=== PATIENT | male | born 1935 | race Caucasian/White ===

== ENCOUNTER 2018-03-10 21:18 | Inpatient (IN) | payer MEDICARE, BC, SELFPAY ==
[2018-03-10 21:27] VITALS: BP 132/75; PULSE 62; RESP 20; TEMP 36.4; O2SAT 98; BMI 25.0
[2018-03-10 22:10] VITALS: BP 132/77; PULSE 70; RESP 15; O2SAT 94
--- NOTE | 2018-03-10 22:46 | DI.CT.S_ITS ---
PROCEDURE: CT ABDOMEN PELVIS W CON INDICATIONS: Nausea and vomiting, absence of flatus and stool, prior SBOs - SBO? RLQ Pain TECHNIQUE: After the administration of intravenous contrast, 5 mm thick sections acquired from the diaphragm to the symphysis. 5 mm coronal and sagittal reformats were acquired. For radiation dose reduction, the following was used: automated exposure control, adjustment of mA and/or kV according to patient size. COMPARISON: [facility], CT, ABDOMEN/PELVIS WITH CONTRAST, 01/13/2017, 4:38. FINDINGS: Image quality: Excellent. ABDOMEN: Lung bases: Bilateral dependent atelectasis/scarring. Solid organs: 1 cm or less hypodense lesions seen within the caudate lobe and posterior tip of the right lobe, too small to characterize although grossly unchanged 01/13/17.. Gallbladder surgically absent.. Biliary system is non dilated. Pancreas enhances normally. There is a presumed gas and fluid filled duodenal diverticulum image 35 series 6 Spleen is normal in size and enhancement. No adrenal nodules. Presumed bilateral renal cysts although some of these are technically too small to characterize definitively. Nonobstructive 2 mm left renal calculus. There is A. at least partially solid appearing lesion measuring 2.6 cm involving the upper pole of the left kidney, with this suspicious for renal cell carcinoma. A mildly complex cyst along the posterior cortex of the right kidney image 30 series 6 with probable peripheral calcification measuring 1.8 cm. Peritoneum and bowel: Trace pelvic fluid. No free air. There are dilated small bowel loops (in addition to dilated appearance of the stomach) with a possible transition point seen in the supraumbilical midline abdomen, coronal image 17, axial image 47-51. The distal small bowel is relatively decompressed as is the colon. The rectum contains stool and gas and is otherwise unremarkable. The appendix is normal. Incidental colonic diverticulosis. Nodes and vessels: No retroperitoneal or mesenteric adenopathy by size criteria. Aorta and inferior vena cava are normal in size. Miscellaneous: No ventral hernias. PELVIS: Genitourinary: Circumferential bladder wall thickening which is nonspecific although the bladder is partially decompressed. The prostate is enlarged. Miscellaneous: No inguinal hernias or adenopathy. Bones: No suspicious bony lesions. No vertebral body compression fractures. IMPRESSION: Findings suggestive of high-grade proximal to mid small bowel obstruction. Possible transition point as detailed above in the area of the midline supraumbilical abdomen. Solid-appearing suspicious 2.6 cm mass involving the upper pole left kidney (best visualized on coronal images) which is highly suspicious for renal cell carcinoma until proven otherwise. Recommend urology surgical consultation. Additional mildly complex cystic lesion involving the posterior right kidney Mild ascites. Nonobstructing left nephrolithiasis. Enlarged prostate. Additional chronic and incidental findings as above. Concordant with preliminary study interpretation. Dictated by: Octaviano Hinkle M.D. on 03/11/2018 at 7:36 Approved by: Octaviano Hinkle M.D. on 03/11/2018 at 7:49
[2018-03-10 23:03] LABS: Add Manual Diff / Slide Review NO; Basophils Percent Auto 0.6 % (0-2); Eosinophils Percent Auto 0.4 % (2-4); Hemoglobin 13.7 g/dL (13.5-17.5); Lymphocytes Percent Auto 23.8 % (25-40); Mean Corpuscular HGB Conc 34.3 % (30-36); Mean Corpuscular Hemoglobin 29.8 PG (26-34); Mean Corpuscular Volume 87.1 fL (80-100); Monocytes Percent Auto 8.3 % (3-14); Neutrophils Absolute Auto 4500 /uL (3000-5900); Neutrophils Percent Auto 66.9 % (50-75); Platelet Count 274 X10^3/uL (150-400); Red Blood Cell Count 4.59 X10^6/uL (4.5-5.9); Red Cell Distribution Width 15.1 % (11.6-14.8); White Blood Cell Count 6.8 X10^3/uL (4.5-11.0)
[2018-03-10] MEDS: METOCLOPRAMIDE 10 MG/2 ML INJ IV (23:05)
[2018-03-10] MEDS: SODIUM CHLORIDE 0.9% 1,000 ML 1000 ML IV (23:05)
[2018-03-10 23:11] VITALS: BP 112/73; PULSE 73; RESP 15; O2SAT 96
[2018-03-10 23:12] LABS: Alanine Aminotransferase 33 IU/L (21-72); Albumin 4.2 g/dL (3.5-5.0); Albumin Globulin Ratio 1.3 (1.0-2.8); Alkaline Phosphatase 116 U/L (38-126); Aspartate Aminotransferase 28 IU/L (17-59); Bilirubin Total 0.7 mg/dL (0.2-1.3); Calcium 9.6 mg/dL (8.4-10.2); Estimated Glomerular Filt Rate > 60.0 mL/min (>60); Globulin 3.3 g/dL (1.7-4.1); Glucose 115 mg/dL (80-110); HEMOLYSIS < 15 (0-50); Lipase 73 U/L (23-300); Potassium 4.4 mmol/L (3.4-5.1); Sodium 140 mmol/L (137-145); Total Protein 7.5 g/dL (6.3-8.2)
[2018-03-10 23:20] LABS: Lactate (Lactic Acid) 1.4 mmol/L (0.7-2.1)
[2018-03-11] VITALS (8 sets, daily range): BP systolic 114–146; BP diastolic 61–81; PULSE 65–85; RESP 18–20; TEMP 36.8–37.2; O2SAT 94–98; BMI 23.8
--- NOTE | 2018-03-11 | DI.US.S_ITS ---
PROCEDURE: US RENAL COMPLETE INDICATIONS: Left renal mass seen on CT scan TECHNIQUE: Real-time scanning was performed of the kidneys and bladder, with image documentation. COMPARISON: [facility], CT, CT ABDOMEN PELVIS W DENNISE, 03/10/2018, 23:43. FINDINGS: Kidneys: Kidneys are normal in size. The known superior pole left renal mass is not well seen milder sounds. Right kidney measures 10.7 cm long; left kidney measures 10.3 cm long. Right renal cortical thickness is 1.8 cm; left renal cortical thickness is 1.6 cm. Renal cortical echotexture is normal. No hydronephrosis. No right renal calculi are present. 6 mm superior pole left renal calculus. 7 mm diameter left interpolar renal calculus. No suspicious solid mass lesions. Multiple bilateral renal cysts are present. Largest right renal cyst measures 43 mm within the lateral interpolar kidney. 18 mm right superior pole renal cyst is present. 26 mm diameter superior pole left renal cyst is present. Bladder: Decompressed Miscellaneous: No free pelvic fluid. IMPRESSION: 1. Nonvisualization of known left superior pole renal mass. 2. No hydronephrosis bilaterally. 3. Bilateral renal cysts. 4. Nonobstructing left nephrolithiasis. Dictated by: Day Moulton M.D. on 03/11/2018 at 18:33 Approved by: Day Moulton M.D. on 03/11/2018 at 18:36
[2018-03-11] MEDS: TETRACAINE/BENZOCAINE/BUTAMBEN (CETACAINE) BOTTLE 1 SPRAY TOP (02:00)
--- NOTE | 2018-03-11 02:27 | PC.NURSE ---
Attempted to place NG tube 3x, unsuccessful. Pt refusing any further attempts at this time. Dr. Schmidt aware.
--- NOTE | 2018-03-11 03:37 | ED_ITS ---
HPI - Abdominal Pain General Chief Complaint: Abdominal Pain Stated Complaint: CONSTIPATION Time Seen by Provider: 03/10/18 22:06 History of Present Illness HPI narrative: HPI 82-year-old male with a history of recurrent small bowel obstruction presents with a day of frequent belching, decreased passage of flatus and stool, abdominal distention, and right lower quadrant pain. Denies fevers, chills, dysuria. Denies chest pain. M/S/F/SocHx notable for: gout, small bowel obstruction, cholecystectomy, HLD, HTN, SBO, anxiety, osteoarthritis; remainder reviewed with patient and in chart. ROS: Negative constitutional, eye, cardiovascular, pulmonary, GI, , MSK, skin , neurologic, psychiatric, endocrine unless noted in the HPI. Exam Gen: pleasant, uncomfortable but not in extremis. Infrequent belching observed. HEENT: NC, AT, PEERL, EOMI. Resp: Clear to auscultation bilaterally, normal work of breathing, no accessory muscle usage. Card: Regular rate and rhythm with no murmurs, rubs, or gallops, extremities warm and well perfused. GI: mildly distended, mild diffuse chart to palpation greatest in the right lower quadrant, no rebound, no guarding. : No suprapubic tenderness to palpation. MSK: No visible deformities, strength and tone without visually appreciable deficit. Skin: Normal color with no visible lesions. Neuro: AO x 3, no facial asymmetry, vision and hearing WNL. Psych: Mood and affect appropriate. Labs / Imaging: WBC 6.8, hemoglobin 13.7, lactic acid 1.4, sodium 140, potassium 4.4, creatinine 1.00, total bilirubin 0.7, AST 20, ALT 33, alkaline phosphatase 116, lipase 73. CT abdomen/pelvis: high grade proximal to mid small bowel obstruction, zone of transition thought to be in the slightly super umbilical abdomen to the right of midline. Mild mesenteric fluid and mild intrapelvic fluid. Indeterminate solid prominent enhancing 2.6 cm mass of the upper pole of the left kidney. This has to be considered very suspicious for neoplasm. Slightly complex small cyst of the posterior upper right kidney with peripheral calcification. Left nephrolithiasis, at least one nonobstructing stone. Prostatomegaly. Mildly thick -walled appearance of the urinary bladder. Mild pelvic fluid. Fat-containing right inguinal hernia, small. Cholecystectomy. Small hepatic cysts. MDM Previous chart, nursing note, labs, imaging, and vitals reviewed. A: 82-year-old male with a history of recurrent small bowel obstruction presents with a day of frequent belching, decreased passage of flatus and stool , abdominal distention, and right lower quadrant pain. DDx: small bowel instruction, partial small bowel obstruction, ileus, sigmoid volvulus, acute appendicitis Evaluation: patient with SBO. No evidence of bowel ischemia (by imaging, exam, normal lactate), incidental findings (left adrenal/renal mass and hernia) noted to patient. Patient unable to tolerate NG tube placement. ED Course: Reglan given for nausea, patient declined pain medication. Normal saline given. Disposition: patient admitted to the hospitalist for further care. Impression: SBO (please reference below for remainder of encounter information) Related Data Home Medications Medication Instructions Recorded Confirmed CA PANTOTHENATE/FOLIC ACID/VIT 1 liq PO QDAY #0 11/18/11 03/11/18 (MULTIVITAMIN) VITAMIN D (Vitamin D3) 1,000 unit PO QDAY #0 11/18/11 03/11/18 aspirin 81 mg PO DAILY #0 06/03/12 03/11/18 prednisone 5 mg tablet 5 mg PO QDAY tab 03/19/18 Previous Rx's Medication Instructions Recorded atenolol [Tenormin] 100 mg PO Q DAY #90 tab 12/28/16 allopurinol 100 mg PO QDAY #90 tab 07/16/17 citalopram 40 mg PO QDAY #90 tab 07/16/17 finasteride 5 mg PO QDAY #90 tab 07/16/17 simvastatin 20 mg PO HS #90 tab 07/16/17 Allergies Allergy/AdvReac Type Severity Reaction Status Date / Time carbamazepine [CARBAMAZEPINE] Allergy Mild HIVES Verified 03/19/18 13:23 codeine [CODEINE] Allergy Mild CONSTIPATIO Verified 03/19/18 13:23 N tamsulosin [TAMSULOSIN] Allergy Mild REAL BAD Verified 03/19/18 13:23 COUGH morphine [MORPHINE] AdvReac Unknown severe Verified 03/19/18 13:23 nausea/vomiting PFSH Medical History Small bowel obstruction (Acute) Bilateral renal cysts (Acute) Gout (Chronic) Coronary artery disease (Chronic) Diverticular disease of colon (Chronic) Hyperlipidemia (Chronic) Hypertension (Chronic) 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) Osteoarthritis of right hand (Chronic 12/19/13) 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) Cataract (Chronic) Hemorrhoids (Chronic) History of small bowel obstruction (Chronic) Polymyalgia rheumatica (Chronic) Trigeminal neuralgia (Chronic) Myocardial infarction (Resolved) Surgical History Hx of inguinal hernia surgery (Acute) Status post cholecystectomy (Resolved) History of angioplasty (2001) Family History Father Macular degeneration Social History household members: spouse Smoking Status: Never smoker alcohol intake: current Exam Initial Vital Signs Initial Vital Signs: Vital Signs Temperature 97.5 F L 03/10/18 21:27 Pulse Rate 62 03/10/18 21:27 Respiratory Rate 20 03/10/18 21:27 Blood Pressure 132/75 H 03/10/18 21:27 Pulse Oximetry 98 03/10/18 21:27 Course Orders Ordered: Discontinued Medications Atenolol (Tenormin) 100 mg PO DAILY [facility] Last Admin: 03/13/18 09:18 Dose: 100 mg Admin: 03/12/18 08:22 Dose: 100 mg Admin: 03/11/18 09:08 Dose: 100 mg Benzocaine/Butamben/Tetracaine HCl (Cetacaine [place]) 1 spray TOP PRN PRN PRN Reason: Sore Throat Last Admin: 03/11/18 02:00 Dose: 1 spray Enoxaparin Sodium (Lovenox) 40 mg SUBCUT DAILY [facility] Last Admin: 03/13/18 09:18 Dose: 40 mg Admin: 03/12/18 08:22 Dose: 40 mg Admin: 03/11/18 09:07 Dose: 40 mg Finasteride (Proscar) 5 mg PO DAILY [facility] Last Admin: 03/13/18 09:18 Dose: 5 mg Admin: 03/12/18 08:25 Dose: 5 mg Admin: 03/11/18 09:08 Dose: 5 mg Hydromorphone HCl (Dilaudid) 1 mg IV Q4HR PRN PRN Reason: Pain, Mild Hydromorphone HCl (Dilaudid) 0.5 mg IV Q6HR PRN PRN Reason: Pain, Moderate Sodium Chloride (Normal Saline 0.9%) 1,000 mls @ 1,000 mls/hr IV BOLUS ONE Stop: 03/10/18 23:45 Last Infusion: 03/11/18 00:32 Dose: 0 mls/hr Admin: 03/10/18 23:05 Dose: 1,000 mls/hr Sodium Chloride (Normal Saline 0.9%) 1,000 mls @ 125 mls/hr IV CONT SOFÍA Last Infusion: 03/11/18 09:06 Dose: 0 mls/hr Admin: 03/11/18 06:00 Dose: 125 mls/hr Dextrose/Sodium Chloride (Dextrose 5%-0.45% Ns) 1,000 mls @ 125 mls/hr IV CONT [facility] Last Infusion: 03/12/18 12:11 Dose: 0 mls/hr Admin: 03/12/18 09:11 Dose: 125 mls/hr Infusion: 03/12/18 09:11 Dose: 125 mls/hr Admin: 03/12/18 01:31 Dose: 125 mls/hr Infusion: 03/12/18 01:30 Dose: 0 mls/hr Admin: 03/11/18 17:27 Dose: 125 mls/hr Infusion: 03/11/18 17:26 Dose: 0 mls/hr Admin: 03/11/18 09:03 Dose: 125 mls/hr Magnesium Hydroxide (Milk Of Magnesia) 30 ml PO DAILY PRN PRN Reason: Constipation Last Admin: 03/13/18 09:19 Dose: 30 ml Metoclopramide HCl (Reglan) 10 mg IV NOW ONE Stop: 03/10/18 22:47 Last Admin: 03/10/18 23:05 Dose: 10 mg Ondansetron HCl (Zofran Odt) 4 mg PO Q8HR PRN PRN Reason: Nausea And Vomiting Prednisone (Deltasone) 10 mg PO DAILY [facility] Last Admin: 03/11/18 09:52 Dose: Not Given Prednisone (Deltasone) 10 mg PO DAILY [facility] Last Admin: 03/13/18 09:18 Dose: 10 mg Admin: 03/12/18 08:25 Dose: 10 mg Admin: 03/11/18 09:11 Dose: 10 mg Sodium Chloride (Normal Saline 0.9% Flush) 10 ml IV PRN PRN PRN Reason: Flush Sodium Chloride (Normal Saline 0.9% Flush) 10 ml IV BID [facility] Last Admin: 03/13/18 09:19 Dose: 10 ml Vital Signs - 8 hr 03/10/18 21:27 03/10/18 22:10 03/10/18 23:11 Temperature 97.5 F L Pulse Rate 62 70 73 Respiratory Rate 20 15 15 Blood Pressure 132/75 H Blood Pressure [Left Arm] 132/77 H 112/73 Pulse Oximetry 98 94 96 03/11/18 03:29 Temperature Pulse Rate 85 Respiratory Rate 18 Blood Pressure Blood Pressure [Left Arm] 128/61 H Pulse Oximetry 98 MDM - Abdominal Pain Lab Data Result diagrams: 03/10/18 22:50 03/12/18 11:20 Lab Results 03/10/18 03/10/18 03/10/18 Range/Units 22:50 22:50 23:00 WBC 6.8 (4.5-11.0) X10^3/uL RBC 4.59 (4.5-5.9) X10^6/uL Hgb 13.7 (13.5-17.5) g/dL Hct 40.0 L (41-53) % MCV 87.1 (80-100) fL MCH 29.8 (26-34) PG MCHC 34.3 (30-36) % RDW 15.1 H (11.6-14.8) % Plt Count 274 (150-400) X10^3/uL Neut % (Auto) 66.9 (50-75) % Lymph % (Auto) 23.8 L (25-40) % [place] % (Auto) 8.3 (3-14) % Eos % (Auto) 0.4 L (2-4) % Baso % (Auto) 0.6 (0-2) % Neut # (Auto) 4500 (2285-7315) /uL Sodium 140 (137-145) mmol/L Potassium 4.4 (3.4-5.1) mmol/L Chloride 97.0 L (98-107) mmol/L Carbon Dioxide 30.0 (22-32) mmol/L BUN 14.0 (9-20) mg/dL Creatinine 1.00 (0.66-1.25) mg/dL Estimated GFR > 60.0 (>60) mL/min BUN/Creatinine Ratio 14.0 (6-22) Glucose 115 H (80-110) mg/dL Lactate 1.4 (0.7-2.1) mmol/L Calcium 9.6 (8.4-10.2) mg/dL Total Bilirubin 0.7 (0.2-1.3) mg/dL AST 28 (17-59) IU/L ALT 33 (21-72) IU/L Alkaline Phosphatase 116 (38-126) U/L Total Protein 7.5 (6.3-8.2) g/dL Albumin 4.2 (3.5-5.0) g/dL Globulin 3.3 (1.7-4.1) g/dL Albumin/Globulin Ratio 1.3 (1.0-2.8) Lipase 73 (23-300) U/L Nasal Screen MRSA (PCR) (Negative) 03/11/18 03/11/18 03/12/18 Range/Units 06:30 11:19 11:20 WBC (4.5-11.0) X10^3/uL RBC (4.5-5.9) X10^6/uL Hgb (13.5-17.5) g/dL Hct (41-53) % MCV (80-100) fL MCH (26-34) PG MCHC (30-36) % RDW (11.6-14.8) % Plt Count (150-400) X10^3/uL Neut % (Auto) (50-75) % Lymph % (Auto) (25-40) % [place] % (Auto) (3-14) % Eos % (Auto) (2-4) % Baso % (Auto) (0-2) % Neut # (Auto) (9347-7840) /uL Sodium 140 143 (137-145) mmol/L Potassium 4.4 4.5 (3.4-5.1) mmol/L Chloride 102.0 104.0 (98-107) mmol/L Carbon Dioxide 29.0 28.0 (22-32) mmol/L BUN 12.0 9.0 (9-20) mg/dL Creatinine 0.90 0.80 (0.66-1.25) mg/dL Estimated GFR > 60.0 > 60.0 (>60) mL/min BUN/Creatinine Ratio 13.3 11.3 (6-22) Glucose 128 H 104 (80-110) mg/dL Lactate (0.7-2.1) mmol/L Calcium 8.5 8.6 (8.4-10.2) mg/dL Total Bilirubin (0.2-1.3) mg/dL AST (17-59) IU/L ALT (21-72) IU/L Alkaline Phosphatase (38-126) U/L Total Protein (6.3-8.2) g/dL Albumin (3.5-5.0) g/dL Globulin (1.7-4.1) g/dL Albumin/Globulin Ratio (1.0-2.8) Lipase (23-300) U/L Nasal Screen MRSA (PCR) Negative for mrsa (Negative) Discharge Plan Departure Patient Disposition: Admitted as Observation Clinical Impression: Small bowel obstruction Discharge Date/Time: 03/11/18 05:40 Interventions: ED Discharge Assessment Last Done: 03/11/18 05:31 Referrals: Samson Perez MD [Primary Care Provider] - Admit Date/Time: 03/11/18 08:02 Admit Provider: Dorita Law
[2018-03-11] MEDS: SODIUM CHLORIDE 0.9% 1,000 ML 125 ML IV (06:00)
--- NOTE | 2018-03-11 08:27 | PM.HP.1 ---
History of Present Illness Chief complaint: CONSTIPATION Narrative: Mark Stevens is a 82 year old male states he began not feeling well on Sunday. He woke up in the morning had some loose bowel movements with a little unusual for him. In begin to have a little abdominal pain. And his abdomen began to get distended. His pain was a crampy discomfort which progressed from mild to moderate.. He was able to eat a little bit on Sunday but not much. On Sunday symptoms are still present. His belly became more distended more hard had periumbilical pain which progressively worsened. He did not eat much at all. He was not really nauseated. He has previously had a bowel obstruction so he became concerned that it may be a small bowel obstruction as he has had this multiple times before. Did not have any bowel movement on Sunday that was an unusual he did pass a little gas. On presentation to the emergency room he had a distended hard belly. With pain. It not really nauseated. He had evaluation the emergency department was found to have a small-bowel obstruction. NG tube was tried to be placed 3 times unsuccessfully. Due to patient's continued ongoing abdominal pain discomfort distension and clinical symptoms consistent with small-bowel obstruction patient was admitted to the hospital. This morning he says he is doing okay he is passing a little bit of gas. Still has abdominal pain and discomfort and distention. He is not nauseated. No fever. In fact he says he does does not feel too bad with the pain right now. He is not hungry. Says he does not really want to eat. We reviewed with him his laboratory testing. His admission x-rays including his CT scan which showed a new lesion on his left kidney. We discussed with him his current plan. [facility] Surgical History History of angioplasty Status post cholecystectomy Family History Father Macular degeneration Social History household members: spouse Smoking Status: Never smoker alcohol intake: current Meds Home Medications Medication Instructions Recorded Confirmed Type CA PANTOTHENATE/FOLIC ACID/VIT 1 liq PO QDAY #0 11/18/11 03/11/18 History (MULTIVITAMIN) VITAMIN D (Vitamin D3) 1,000 unit PO QDAY #0 11/18/11 03/11/18 History ASPIRIN (#ASPIRIN) 81 mg PO Q DAY #0 06/03/12 03/11/18 History [LAXATIVE] #0 09/22/16 History Generic Name Dose Route Start Last Admin Trade Name Freq PRN Reason Stop Dose Admin Atenolol 100 mg 03/11/18 09:00 Tenormin PO DAILY [facility] Benzocaine/Butamben/Tetracaine HCl 1 spray 03/11/18 02:09 03/11/18 02:00 Cetacaine [place] TOP 1 spray PRN PRN Administration Sore Throat Enoxaparin Sodium 40 mg 03/11/18 09:00 Lovenox SUBCUT DAILY [facility] Finasteride 5 mg 03/11/18 09:00 Proscar PO DAILY [facility] Hydromorphone HCl 1 mg 03/11/18 05:25 Dilaudid IV Q4HR PRN Pain, Mild Hydromorphone HCl 0.5 mg 03/11/18 08:00 Dilaudid IV Q6HR PRN Pain, Moderate Sodium Chloride 1,000 mls @ 125 mls/hr 03/11/18 05:30 03/11/18 06:00 Normal Saline 0.9% IV 125 mls/hr CONT SOFÍA Administration Dextrose/Sodium Chloride 1,000 mls @ 125 mls/hr 03/11/18 08:00 Dextrose 5%-0.45% Ns IV CONT SOFÍA Ondansetron HCl 4 mg 03/11/18 08:00 Zofran Odt PO Q8HR PRN Nausea And Vomiting Prednisone 10 mg 03/11/18 09:00 Deltasone PO DAILY [facility] Allergies Allergy/AdvReac Type Severity Reaction Status Date / Time carbamazepine [CARBAMAZEPINE] Allergy Mild HIVES Verified 03/10/18 21:35 codeine [CODEINE] Allergy Mild CONSTIPATIO Verified 03/10/18 21:35 N tamsulosin [TAMSULOSIN] Allergy Mild REAL BAD Verified 03/10/18 21:35 COUGH morphine [MORPHINE] AdvReac Unknown severe Verified 03/10/18 21:35 nausea/vomiting Review of Systems Review of Systems All systems reviewed & are unremarkable except as noted in HPI and below Exam Vital Signs (past 8 hours): Vital Signs - 8 hr 03/11/18 03:29 03/11/18 05:24 03/11/18 05:53 Temperature 98.2 F Pulse Rate 85 75 75 Respiratory Rate 18 18 18 Blood Pressure 146/72 H Blood Pressure [Left Arm] 128/61 H 133/67 H Pulse Oximetry 98 97 95 03/11/18 08:06 Temperature 99.0 F Pulse Rate 68 Respiratory Rate 18 Blood Pressure 138/81 H Blood Pressure [Left Arm] Pulse Oximetry 96 Pulse Oximetry 96 Oxygen Delivery Method Room Air Oxygen Flow Rate 0 Narrative Exam Narrative: Gen.: Alert and oriented x3 no apparent distress. HEENT: NCAT PERRLA tympanic membranes are clear nares are patent oral mucosa is moist no tonsillar hypertrophy neck is supple without lymphadenopathy no thyroid enlargement. Cardio: S1-S2 regular rate and rhythm no murmurs appreciated. Respiratory: Lungs are clear to auscultation no wheezes or crackles normal respiratory effort. Abdomen: Abdomen is firm mildly distended temp an attic to the touch and tenderness in the periumbilical area there is no significant rebound there is mild guarding due to pain. He has positive bowel tones. Extremities: Full range of motion no appreciable weakness no cyanosis or edema. Neurologic: Grossly intact. Objective Labs Result Diagrams: 03/10/18 22:50 03/10/18 22:50 Labs: Laboratory Results - last 24 hr 03/10/18 03/10/18 03/10/18 22:50 22:50 23:00 WBC 6.8 RBC 4.59 Hgb 13.7 Hct 40.0 L MCV 87.1 MCH 29.8 MCHC 34.3 RDW 15.1 H Plt Count 274 Neut % (Auto) 66.9 Lymph % (Auto) 23.8 L [place] % (Auto) 8.3 Eos % (Auto) 0.4 L Baso % (Auto) 0.6 Neut # (Auto) 4500 Sodium 140 Potassium 4.4 Chloride 97.0 L Carbon Dioxide 30.0 BUN 14.0 Creatinine 1.00 Estimated GFR > 60.0 BUN/Creatinine Ratio 14.0 Glucose 115 H Lactate 1.4 Calcium 9.6 Total Bilirubin 0.7 AST 28 ALT 33 Alkaline Phosphatase 116 Total Protein 7.5 Albumin 4.2 Globulin 3.3 Albumin/Globulin Ratio 1.3 Lipase 73 Assessment & Plan (1) Small bowel obstruction: Current visit: Yes Status: Acute Patient will be admitted to the hospital as an inpatient. Most likely he will be need to be in the hospital for multiple nights. He has had admissions before for small bowel obstructions and this is usually how long it takes. He will be NPO. Patient will have IV fluids with D5 half normal saline. 125 mL/hr. Will check his electrolytes daily. We will monitor his bowel status with recurrent abdominal exams. Repeat x-ray tomorrow morning. He will be placed on anti medics. He will provided with pain medication. And he will be on DVT prophylaxis. He will be started on some of his oral home medication with a little sips of water. He is passing gas at this time. (2) Bilateral renal cysts: Current visit: Yes Status: Acute Patient has an exophytic mass on his left kidney. Found on his current CT scan was not previously on his CT scan that he had about a year ago this is new. He is completely asymptomatic. Will obtain a renal ultrasound today for further delineation of this mass and then decide where to go from there (3) Coronary artery disease: Current visit: Yes Status: Chronic Currently stable. No active angina symptoms. He is on a beta-km we will continue with his atenolol. Will hold his aspirin as he is on Lovenox. Will go ahead and continue with his statin once his diet starts to return back to normal otherwise we will hold that at this point. 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 (7) Gout: Current visit: Yes Status: Acute Currently on allopurinol no recent flare ups of his gout. Quality VTE Deep Vein Thrombosis/Pulmonary Embolism Present on Admission: No
--- NOTE | 2018-03-11 08:38 | P.HP_ITS ---
History of Present Illness Chief complaint: CONSTIPATION Narrative: Mark Stevens is a 82 year old male states he began not feeling well on Sunday. He woke up in the morning had some loose bowel movements with a little unusual for him. In begin to have a little abdominal pain. And his abdomen began to get distended. His pain was a crampy discomfort which progressed from mild to moderate.. He was able to eat a little bit on Sunday but not much. On Sunday symptoms are still present. His belly became more distended more hard had periumbilical pain which progressively worsened. He did not eat much at all. He was not really nauseated. He has previously had a bowel obstruction so he became concerned that it may be a small bowel obstruction as he has had this multiple times before. Did not have any bowel movement on Sunday that was an unusual he did pass a little gas. On presentation to the emergency room he had a distended hard belly. With pain. It not really nauseated. He had evaluation the emergency department was found to have a small-bowel obstruction. NG tube was tried to be placed 3 times unsuccessfully. Due to patient's continued ongoing abdominal pain discomfort distension and clinical symptoms consistent with small-bowel obstruction patient was admitted to the hospital. This morning he says he is doing okay he is passing a little bit of gas. Still has abdominal pain and discomfort and distention. He is not nauseated. No fever. In fact he says he does does not feel too bad with the pain right now. He is not hungry. Says he does not really want to eat. We reviewed with him his laboratory testing. His admission x-rays including his CT scan which showed a new lesion on his left kidney. We discussed with him his current plan. [facility], [facility] Surgical History History of angioplasty Status post cholecystectomy Family History Father Macular degeneration Social History household members: spouse Smoking Status: Never smoker alcohol intake: current Meds Home Medications Medication Instructions Recorded Confirmed Type CA PANTOTHENATE/FOLIC ACID/VIT 1 liq PO QDAY #0 11/18/11 03/11/18 History (MULTIVITAMIN) VITAMIN D (Vitamin D3) 1,000 unit PO QDAY #0 11/18/11 03/11/18 History ASPIRIN (#ASPIRIN) 81 mg PO Q DAY #0 06/03/12 03/11/18 History [LAXATIVE] #0 09/22/16 History Generic Name Dose Route Start Last Admin Trade Name Freq PRN Reason Stop Dose Admin Atenolol 100 mg 03/11/18 09:00 Tenormin PO DAILY [facility] Benzocaine/Butamben/Tetracaine HCl 1 spray 03/11/18 02:09 03/11/18 02:00 Cetacaine [place] TOP 1 spray PRN PRN Administration Sore Throat Enoxaparin Sodium 40 mg 03/11/18 09:00 Lovenox SUBCUT DAILY [facility] Finasteride 5 mg 03/11/18 09:00 Proscar PO DAILY [facility] Hydromorphone HCl 1 mg 03/11/18 05:25 Dilaudid IV Q4HR PRN Pain, Mild Hydromorphone HCl 0.5 mg 03/11/18 08:00 Dilaudid IV Q6HR PRN Pain, Moderate Sodium Chloride 1,000 mls @ 125 mls/hr 03/11/18 05:30 03/11/18 06:00 Normal Saline 0.9% IV 125 mls/hr CONT SOFÍA Administration Dextrose/Sodium Chloride 1,000 mls @ 125 mls/hr 03/11/18 08:00 Dextrose 5%-0.45% Ns IV CONT SOFÍA Ondansetron HCl 4 mg 03/11/18 08:00 Zofran Odt PO Q8HR PRN Nausea And Vomiting Prednisone 10 mg 03/11/18 09:00 Deltasone PO DAILY [facility] Allergies Allergy/AdvReac Type Severity Reaction Status Date / Time carbamazepine [CARBAMAZEPINE] Allergy Mild HIVES Verified 03/10/18 21:35 codeine [CODEINE] Allergy Mild CONSTIPATIO Verified 03/10/18 21:35 N tamsulosin [TAMSULOSIN] Allergy Mild REAL BAD Verified 03/10/18 21:35 COUGH morphine [MORPHINE] AdvReac Unknown severe Verified 03/10/18 21:35 nausea/vomiting Review of Systems Review of Systems All systems reviewed & are unremarkable except as noted in HPI and below Exam Vital Signs (past 8 hours): Vital Signs - 8 hr 3 03/11/18 03:29 03/11/18 05:24 03/11/18 05:53 Temperature 98.2 F Pulse Rate 85 75 75 Respiratory Rate 18 18 18 Blood Pressure 146/72 H Blood Pressure [Left Arm] 128/61 H 133/67 H Pulse Oximetry 98 97 95 3 03/11/18 08:06 Temperature 99.0 F Pulse Rate 68 Respiratory Rate 18 Blood Pressure 138/81 H Blood Pressure [Left Arm] Pulse Oximetry 96 Pulse Oximetry 96 Oxygen Delivery Method Room Air Oxygen Flow Rate 0 Narrative Exam Narrative: Gen.: Alert and oriented x3 no apparent distress. HEENT: NCAT PERRLA tympanic membranes are clear nares are patent oral mucosa is moist no tonsillar hypertrophy neck is supple without lymphadenopathy no thyroid enlargement. Cardio: S1-S2 regular rate and rhythm no murmurs appreciated. Respiratory: Lungs are clear to auscultation no wheezes or crackles normal respiratory effort. Abdomen: Abdomen is firm mildly distended temp an attic to the touch and tenderness in the periumbilical area there is no significant rebound there is mild guarding due to pain. He has positive bowel tones. Extremities: Full range of motion no appreciable weakness no cyanosis or edema. Neurologic: Grossly intact. Objective Labs Result Diagrams: 03/10/18 22:50 03/10/18 22:50 Labs: Laboratory Results - last 24 hr 03/10/18 03/10/18 03/10/18 22:50 22:50 23:00 WBC 6.8 RBC 4.59 Hgb 13.7 Hct 40.0 L MCV 87.1 MCH 29.8 MCHC 34.3 RDW 15.1 H Plt Count 274 Neut % (Auto) 66.9 Lymph % (Auto) 23.8 L [place] % (Auto) 8.3 Eos % (Auto) 0.4 L Baso % (Auto) 0.6 Neut # (Auto) 4500 Sodium 140 Potassium 4.4 Chloride 97.0 L Carbon Dioxide 30.0 BUN 14.0 Creatinine 1.00 Estimated GFR > 60.0 BUN/Creatinine Ratio 14.0 Glucose 115 H Lactate 1.4 Calcium 9.6 Total Bilirubin 0.7 AST 28 ALT 33 Alkaline Phosphatase 116 Total Protein 7.5 Albumin 4.2 Globulin 3.3 Albumin/Globulin Ratio 1.3 Lipase 73 Assessment & Plan (1) Small bowel obstruction: Current visit: Yes Status: Acute Patient will be admitted to the hospital as an inpatient. Most likely he will be need to be in the hospital for multiple nights. He has had admissions before for small bowel obstructions and this is usually how long it takes. He will be NPO. Patient will have IV fluids with D5 half normal saline. 125 mL/ hr. Will check his electrolytes daily. We will monitor his bowel status with recurrent abdominal exams. Repeat x-ray tomorrow morning. He will be placed on anti medics. He will provided with pain medication. And he will be on DVT prophylaxis. He will be started on some of his oral home medication with a little sips of water. He is passing gas at this time. (2) Bilateral renal cysts: Current visit: Yes Status: Acute Patient has an exophytic mass on his left kidney. Found on his current CT scan was not previously on his CT scan that he had about a year ago this is new. He is completely asymptomatic. Will obtain a renal ultrasound today for further delineation of this mass and then decide where to go from there (3) Coronary artery disease: Current visit: Yes Status: Chronic Currently stable. No active angina symptoms. He is on a beta-km we will continue with his atenolol. Will hold his aspirin as he is on Lovenox. Will go ahead and continue with his statin once his diet starts to return back to normal otherwise we will hold that at this point. 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 (7) Gout: Current visit: Yes Status: Acute Currently on allopurinol no recent flare ups of his gout. Quality VTE Deep Vein Thrombosis/Pulmonary Embolism Present on Admission: No
[2018-03-11] MEDS: DEXTROSE 5%-0.45% NS 1,000 ML 125 ML IV ×2 (09:03→17:27)
[2018-03-11] MEDS: ENOXAPARIN 40 MG/0.4 ML SYRINGE SUBCUT (09:07)
[2018-03-11] MEDS: FINASTERIDE 5 MG TABLET PO (09:08)
[2018-03-11] MEDS: ATENOLOL 50 MG TABLET 100 MG PO (09:08)
[2018-03-11] MEDS: predniSONE 10 MG TABLET PO (09:11)
[2018-03-11 12:14] LABS: BUN Creatinine Ratio 13.3 (6-22); Calcium 8.5 mg/dL (8.4-10.2); Estimated Glomerular Filt Rate > 60.0 mL/min (>60); Glucose 128 mg/dL (80-110); HEMOLYSIS < 15 (0-50); Potassium 4.4 mmol/L (3.4-5.1); Sodium 140 mmol/L (137-145)
--- NOTE | 2018-03-11 16:10 | CM.DANOTE ---
DCP/Assessment: Reviewed chart. Patient is a 82yr old male admitted to [facility] with abdominal pain. Primary payor is 1)Medicare 2)[employer]. PCP is Dr. Perez. ENVIRONMENTAL DIRECTOR met with patient and spouse/Jennifer at bedside explained CM/SW role. Patient and spouse confirm that patient is completely I in all ADL's. Patient plans to return home when stable. Patient appreciative of visit. Notified patient that CM team would continue to follow if needs were to arise. P Home when stable. MAC Nieves
--- NOTE | 2018-03-11 21:57 | PC.NURSE ---
scooby note pt denies abd pain. Pt reports having a small amount of flatus. Pt's abd is soft, distended. Renal US done at bedside.
[2018-03-12] VITALS (9 sets, daily range): BP systolic 124–165; BP diastolic 46–85; PULSE 57–61; RESP 15–20; TEMP 36.3–36.8; O2SAT 95–98
[2018-03-12] MEDS: DEXTROSE 5%-0.45% NS 1,000 ML 125 ML IV ×2 (01:31→09:11)
--- NOTE | 2018-03-12 07:00 | DI.RAD.S_ITS ---
PROCEDURE: XR ABDOMEN MIN 2V INDICATIONS: Small bowel obstruction TECHNIQUE: 2 views of the abdomen were acquired. COMPARISON: [facility], CR, ABDOMEN 1 VIEW, 01/16/2017, 5:55. [facility], CT, CT ABDOMEN PELVIS W CON, 03/10/2018, 23:43. FINDINGS: Surgical changes and devices: Surgical clips right upper quadrant. Bowel: No pneumoperitoneum. The bowel gas pattern shows mildly dilated small bowel loops with stairstep air-fluid levels in the mid upper abdomen. There is air and stool throughout nondistended colon. Soft tissues: No masses; visualized solid organ contours appear normal in size. No suspicious abdominal calcifications. Bones: No suspicious bony abnormalities. IMPRESSION: 1. Mild partial small bowel obstruction. No free air. 2. Status post cholecystectomy Dictated by: Frank Rossi M.D. on 03/12/2018 at 9:09 Approved by: Frank Rossi M.D. on 03/12/2018 at 9:12
[2018-03-12] MEDS: ATENOLOL 50 MG TABLET 100 MG PO (08:22)
[2018-03-12] MEDS: ENOXAPARIN 40 MG/0.4 ML SYRINGE SUBCUT (08:22)
[2018-03-12] MEDS: FINASTERIDE 5 MG TABLET PO (08:25)
[2018-03-12] MEDS: predniSONE 10 MG TABLET PO (08:25)
[2018-03-12 11:44] LABS: BUN Creatinine Ratio 11.3 (6-22); Calcium 8.6 mg/dL (8.4-10.2); Estimated Glomerular Filt Rate > 60.0 mL/min (>60); Glucose 104 mg/dL (80-110); HEMOLYSIS < 15 (0-50); Potassium 4.5 mmol/L (3.4-5.1); Sodium 143 mmol/L (137-145)
--- NOTE | 2018-03-12 20:50 | PC.NURSE ---
scooby note pt ambulating independently around unit. Denies abd pain. some flatus.
[2018-03-13 00:03] VITALS: BP 155/92; PULSE 63; RESP 16; TEMP 36.3; O2SAT 97
[2018-03-13 00:49] VITALS: O2SAT 97
[2018-03-13] MEDS: predniSONE 10 MG TABLET PO (09:18)
[2018-03-13] MEDS: ENOXAPARIN 40 MG/0.4 ML SYRINGE SUBCUT (09:18)
[2018-03-13] MEDS: ATENOLOL 50 MG TABLET 100 MG PO (09:18)
[2018-03-13] MEDS: FINASTERIDE 5 MG TABLET PO (09:18)
[2018-03-13] MEDS: MAGNESIUM HYDROXIDE 30 ML UDC PO (09:19)
[2018-03-13] MEDS: SODIUM CHLORIDE 0.9% FLUSH 10 ML IV (09:19)
[2018-03-13 10:17] VITALS: BP 146/80; PULSE 80; RESP 18; TEMP 36.6
[2018-03-13 10:43] VITALS: O2SAT 97
--- NOTE | 2018-03-13 12:36 | PM.PN.1 ---
Subjective Interval history: Patient did well at night. Did not sleep much. Abdominal pain is improved. Distention is also improved. Patient receiving IV fluid. No need for pain relief. Positive gas no bowel movement. No concerns other than not sleeping well. Previous history of multiple bowel obstructions. Discussed care and case with his . Date Patient Seen: 03/12/18 Time Patient Seen: 08:00 Exam Vital Signs (past 8 hours): Vital Signs - 8 hr 03/13/18 10:17 03/13/18 10:43 Temperature 97.8 F Pulse Rate 80 Respiratory Rate 18 Blood Pressure 146/80 H Pulse Oximetry 97 Pulse Oximetry 97 Oxygen Delivery Method Room Air Oxygen Flow Rate 0 Narrative Exam Narrative: Gen.: Alert no apparent distress HEENT: Pupils equal round and reactive Cardio: Regular rate and rhythm Respiratory: Lungs are clear to auscultation no wheezes or crackles normal respiratory effort. Abdomen: Soft mild distention and tenderness throughout no appreciable hernias. No point tenderness or guarding Extremities: Full range of motion no appreciable weakness no cyanosis or edema. Objective Labs Result Diagrams: 03/10/18 22:50 03/12/18 11:20 Assessment & Plan (1) Small bowel obstruction: Current visit: Yes Status: Acute (2) Bilateral renal cysts: Current visit: Yes Status: Acute (3) Coronary artery disease: Qualifiers: Coronary Disease-Associated Artery/Lesion type: barrow artery [place] vs. transplanted heart: barrow heart Associated angina: without angina Qualified Code(s): I25.10 - Atherosclerotic heart disease of barrow coronary artery without angina pectoris Current visit: Yes Status: Chronic (4) Diverticular disease of colon: Qualifiers: Diverticulosis bleeding: diverticulosis without bleeding Qualified Code(s): K57.30 - Diverticulosis of large intestine without perforation or abscess without bleeding Current visit: Yes Status: Chronic (5) Hyperlipidemia: Qualifiers: Hyperlipidemia type: mixed hyperlipidemia Qualified Code(s): E78.2 - Mixed hyperlipidemia Current visit: Yes Status: Chronic (6) Hypertension: Qualifiers: Hypertension type: essential hypertension Qualified Code(s): I10 - Essential (primary) hypertension Current visit: Yes Status: Chronic (7) Gout: Qualifiers: Gout site: multiple sites Gout etiology: idiopathic Chronicity: chronic Current visit: Yes Status: Acute Plan: Plan: Plan today. Patient will be started on a clear liquid diet. Will have him be on this for 24 hr. His telemetry monitoring overnight was good. Will DC that. Review abdominal x-ray. Electrolytes are stable at this point. Abdominal distention is improved pain is mild. We will advance him to clear liquid diet if needed we can stop his IV fluid he is not getting pain control. Will get him on some stool softeners. See how he does for the next 24 hr. Quality VTE Deep Vein Thrombosis/Pulmonary Embolism Present on Admission: No
--- NOTE | 2018-03-13 12:40 | P.PN_ITS ---
Subjective Interval history: Patient did well at night. Did not sleep much. Abdominal pain is improved. Distention is also improved. Patient receiving IV fluid. No need for pain relief. Positive gas no bowel movement. No concerns other than not sleeping well. Previous history of multiple bowel obstructions. Discussed care and case with his . Date Patient Seen: 03/12/18 Time Patient Seen: 08:00 Exam Vital Signs (past 8 hours): Vital Signs - 8 hr 3 03/13/18 10:17 03/13/18 10:43 Temperature 97.8 F Pulse Rate 80 Respiratory Rate 18 Blood Pressure 146/80 H Pulse Oximetry 97 Pulse Oximetry 97 Oxygen Delivery Method Room Air Oxygen Flow Rate 0 Narrative Exam Narrative: Gen.: Alert no apparent distress HEENT: Pupils equal round and reactive Cardio: Regular rate and rhythm Respiratory: Lungs are clear to auscultation no wheezes or crackles normal respiratory effort. Abdomen: Soft mild distention and tenderness throughout no appreciable hernias. No point tenderness or guarding Extremities: Full range of motion no appreciable weakness no cyanosis or edema. Objective Labs Result Diagrams: 03/10/18 22:50 03/12/18 11:20 Assessment & Plan (1) Small bowel obstruction: Current visit: Yes Status: Acute (2) Bilateral renal cysts: Current visit: Yes Status: Acute (3) Coronary artery disease: Qualifiers: Coronary Disease-Associated Artery/Lesion type: teller artery [place] vs. transplanted heart: teller heart Associated angina: without angina Qualified Code(s): I25.10 - Atherosclerotic heart disease of teller coronary artery without angina pectoris Current visit: Yes Status: Chronic (4) Diverticular disease of colon: Qualifiers: Diverticulosis bleeding: diverticulosis without bleeding Qualified Code (s): K57.30 - Diverticulosis of large intestine without perforation or abscess without bleeding Current visit: Yes Status: Chronic (5) Hyperlipidemia: Qualifiers: Hyperlipidemia type: mixed hyperlipidemia Qualified Code(s): E78.2 - Mixed hyperlipidemia Current visit: Yes Status: Chronic (6) Hypertension: Qualifiers: Hypertension type: essential hypertension Qualified Code(s): I10 - Essential (primary) hypertension Current visit: Yes Status: Chronic (7) Gout: Qualifiers: Gout site: multiple sites Gout etiology: idiopathic Chronicity: chronic Current visit: Yes Status: Acute Plan: Plan: Plan today. Patient will be started on a clear liquid diet. Will have him be on this for 24 hr. His telemetry monitoring overnight was good. Will DC that. Review abdominal x-ray. Electrolytes are stable at this point. Abdominal distention is improved pain is mild. We will advance him to clear liquid diet if needed we can stop his IV fluid he is not getting pain control. Will get him on some stool softeners. See how he does for the next 24 hr. Quality VTE Deep Vein Thrombosis/Pulmonary Embolism Present on Admission: No
--- NOTE | 2018-03-13 13:09 | P.DS_ITS ---
History of Present Illness Date Patient Seen: 03/13/18 Time Patient Seen: 12:44 Chief complaint: CONSTIPATION Narrative: Mark Stevens is a 82 year old male admitted with abdominal pain signed symptoms consistent with small-bowel obstruction. Previous history of small-bowel obstruction. He was admitted to the hospital for further evaluation and management. Discharge Providers Date of admission: 03/11/18 08:02 Primary care physician: Samson Perez MD Consults: 03/11/18 05:25 Consult to Physician Routine Comment: Consulting Provider: Dorita Law Reason for consultation: SBO Has provider been notified: Yes Discharge provider: Samson Perez MD Summary Hospital Course: Patient was admitted the hospital with small bowel obstruction. Incidental finding of a renal mass. Patient was admitted and placed on NPO status received IV fluids. He has serial abdominal examinations. Patient had improvement of his abdominal distension and pain. Patient began passing gas. Repeat x-ray showed no significant air-fluid levels but increased gas pattern. We started on a clear liquid diet which he tolerated well. This was advanced to a soft diet which had no problems. He had an ultrasound of his kidneys. The renal mass was not visualized on the ultrasound but present in the CT scan. Discharge Diagnosis (1) Small bowel obstruction: Status: Acute (2) Bilateral renal cysts: Status: Acute (3) Coronary artery disease: Status: Chronic (4) Diverticular disease of colon: Status: Chronic (5) Hyperlipidemia: Status: Chronic (6) Hypertension: Status: Chronic (7) Gout: Status: Acute Time Spent with Patient Total time spent providing and/or coordinating discharge services: Greater than 30 minutes Exam Vital Signs (past 8 hours): Vital Signs - 8 hr 3 03/13/18 10:17 03/13/18 10:43 Temperature 97.8 F Pulse Rate 80 Respiratory Rate 18 Blood Pressure 146/80 H Pulse Oximetry 97 Pulse Oximetry 97 Oxygen Delivery Method Room Air Oxygen Flow Rate 0 Narrative Exam Narrative: Gen.: Alert and oriented x3 no apparent distress. HEENT: NCAT PERRLA tympanic membranes are clear nares are patent oral mucosa is moist no tonsillar hypertrophy neck is supple without lymphadenopathy no thyroid enlargement. Cardio: S1-S2 regular rate and rhythm no murmurs appreciated. Respiratory: Lungs are clear to auscultation no wheezes or crackles normal respiratory effort. Abdomen: Soft nontender no rebound or guarding no liver spleen enlargement no appreciable hernias Extremities: Full range of motion no appreciable weakness no cyanosis or edema. Neurologic: Grossly intact. Objective Labs Result Diagrams: 03/10/18 22:50 03/12/18 11:[address] scan - abdomen: My impression: IMPRESSION: Radiologist's impression: PROCEDURE: CT ABDOMEN PELVIS W CON Discharge Plan Discharge Plan Patient Disposition: Home, Self-Care Discharge comment: Discharged home continue with soft diet. Follow up with Dr. Perez in 7 days. Will need to follow up with urologist for further evaluation of renal mass Provider Discharge Instructions Diet: Full Liquid Diet comment: Advanced diet slowly Discharge Data Primary Care Provider: Samson Perez Attending Provider: Dorita Law Admit Date/Time: 03/11/18 08:02 Quality VTE Deep Vein Thrombosis/Pulmonary Embolism Present on Admission: No
--- NOTE | 2018-03-13 15:19 | PC.NURSE ---
discharged to home followingreviewof dischargeplan- office to call ptwith followupappt
== END 2018-03-13 15:20 | disposition home or self-care (01) | DRG 390 ==
LOC: ED 03-11 05:25 → ICU 03-11 05:29
PROVIDERS: Admitting Provider Family Medicine; Emergency Provider Emergency Medicine; Family Provider Family Medicine; PCP Family Medicine; Visit Provider Family Medicine
DX: K56.609 Unspecified intestinal obstruction, unspecified as to partial versus complete obstruction (principal); I25.10 Atherosclerotic heart disease of native coronary artery without angina pectoris; E78.5 Hyperlipidemia, unspecified; I10 Essential (primary) hypertension; M10.9 Gout, unspecified; K57.30 Diverticulosis of large intestine without perforation or abscess without bleeding
CPT/HCPCS: 36591; 74019; 74177; 76770; 80048; 80053; 83605; 83690; 85025; 87797; 96361; 96374; 99223; 99232; 99238; 99283; 99284; G0378; J1650; J2765; Q9967

== ENCOUNTER → 2018-04-15 11:36 | Outpatient (CLI) | payer MEDICARE, BC, SELFPAY ==
[2018-03-11 05:37] VITALS: BMI 23.8
[2018-04-15 12:40] LABS: BUN Creatinine Ratio 13.3 (6-22); Blood Urea Nitrogen 12 mg/dL (9-20); Calcium 9.1 mg/dL (8.4-10.2); Carbon Dioxide 28 mmol/L (22-32); Chloride 104 mmol/L (98-107); Estimated Glomerular Filt Rate > 60.0 mL/min (>60); Glucose 110 mg/dL (80-110); HEMOLYSIS < 15 (0-50); Potassium 4.3 mmol/L (3.4-5.1); Sodium 142 mmol/L (137-145)
== END ==
PROVIDERS: PCP Family Medicine; Visit Provider Specialist
DX: D41.02 Neoplasm of uncertain behavior of left kidney (principal)
CPT/HCPCS: 36415; 80048

== ENCOUNTER → 2018-05-01 10:04 | Outpatient (CLI) | payer OTHER, SELFPAY ==
[2018-03-11 05:37] VITALS: BMI 23.8
--- NOTE | 2018-05-01 | DI.MRI.S_ITS ---
PROCEDURE: MR ABDOMEN WO/W CON INDICATIONS: Neoplasm of uncertain behavior of left kidney TECHNIQUE: Coronal HASTE through abdomen and pelvis; axial 2D FLASH in- and [id number] (with and without fat saturation), and breath-hold T2 FSE from the hepatic dome to the bottom of the kidneys. Coronal HASTE MR urogram of kidneys and bladder. Dynamic coronal VIBE during IV gadolinium administration; postgadolinium axial VIBE or 2D FLASH with fat saturation from the hepatic dome through the kidneys. COMPARISON: [facility], US, US RENAL COMPLETE, 03/11/2018, 17:50. [facility], CT, ABDOMEN/PELVIS WITH CONTRAST, 09/22/2016, 5:05. [facility], CT, CT ABDOMEN PELVIS W CON, 03/10/2018, 23:43. FINDINGS: Image quality: Excellent. Genitourinary system: There is a solid-appearing mass showing intense enhancement within the upper posterolateral cortex of the left kidney, measuring up to 1.9 x 2.3 cm in maximal axial dimension and approximately 2.4 cm craniocaudad. This has not appreciably enlarged from the recent CT scanning 03/10/18. The right kidney contains a posterior mildly exophytic cyst containing milk of calcium layering dependently posteriorly. Additional bilateral simple appearing renal cortical cysts can be seen, generally exophytic. No urothelial mass or renal cortical mass lesion elsewhere is found. Other solid organs: Normal. Nodes and vessels: Normal. Bowel and peritoneum: Normal. Lung bases: Normal. Bones and soft tissues: Normal. 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 This has not appreciably changed from the CT study 03/10/18. This structure could not be located on subsequent ultrasound one day later. Therefore, it sequential followup is clinically desired followup by MR scanning would appear sufficient to assess for rate of growth over time. A second abnormality located at the posterior cortex of the right kidney represents a minimally complex cyst containing posterior layering milk of calcium requiring no additional followup. Dictated by: Ronni Judge M.D. on 05/01/2018 at 14:00 Approved by: Ronni Judge M.D. on 05/01/2018 at 14:09
== END ==
PROVIDERS: Family Provider Family Medicine; PCP Family Medicine; Visit Provider Specialist
DX: N28.9 Disorder of kidney and ureter, unspecified (principal)
CPT/HCPCS: 74183; A9579

== ENCOUNTER → 2018-11-18 12:32 | Outpatient (CLI) | payer OTHER, SELFPAY ==
[2018-03-11 05:37] VITALS: BMI 23.8
--- NOTE | 2018-11-18 | DI.US.S_ITS ---
PROCEDURE: US RENAL COMPLETE INDICATIONS: RENAL CANCER TECHNIQUE: Real-time scanning was performed of the kidneys and bladder, with image documentation. COMPARISON: [facility], CT, ABDOMEN/PELVIS WITH CONTRAST, 09/22/2016, 5:05. [facility], MR, MR ABDOMEN WO/W CON, 05/01/2018, 10:37. [facility], CR, XR ABDOMEN MIN 2V, 03/12/2018, 5:54. [facility], CT, CT ABDOMEN PELVIS W CON, 03/10/2018, 23:43. [facility], CT, ABDOMEN/PELVIS WITH CONTRAST, 01/13/2017, 4:38. [facility], CT, ABDOMEN/PELVIS WITH CONTRAST, 01/13/2015, 23:41. [facility], US, US RENAL COMPLETE, 03/11/2018, 17:50. [facility], US, RENAL COMPLETE, 07/06/2011, 15:02. FINDINGS: Kidneys: Kidneys are normal in size. Right kidney measures 10.5 cm long; left kidney measures 10.6 cm long. Right renal cortical thickness is 1.2 cm; left renal cortical thickness is 1.9 cm. Renal cortical echotexture is normal. No hydronephrosis or nephrolithiasis. No suspicious right-sided solid mass lesions. There is a left-sided superior pole solid mass measuring 2.3 x 2.3 x 2.7 cm previously 2.3 x 2.6 cm. There are several right and left side simple cysts, the largest on the right at the upper pole measuring 4.2 x 3.1 x 5.2 cm and mildly complex at the lower pole measuring 1.8 x 1.6 x 1.2 cm. On the left the inferior simple cyst present measures 3.0 x 2.4 x 2.8 cm. Bladder: Pre-void bladder volume is 130 mL. Post-void residual is 46 mL. Pre-void images demonstrate no intraluminal masses or stones. On pre-void images, neither ureteral jets are noted with color Doppler interrogation. (Of note, ureteral jets may not be detectable in up to 25% of cases due to insufficient differences in specific gravity between ureteral and bladder urine). Miscellaneous: No free pelvic fluid. IMPRESSION: Solid appearing left upper pole mass lesion again seen, currently measuring up to 2.7 x 2.3 x 2.3 cm with visualized internal vascularity. This does not appear to have significantly increased in size from prior CT and MR scanning and ultrasound imaging 03/11/18. Surveillance targeted renal ultrasound is recommended at 6 month intervals for one additional year to assess for rate of meter changes records clerk time. Dictated by: Ronni Judge M.D. on 11/18/2018 at 13:43 Approved by: Ronni Judge M.D. on 11/18/2018 at 14:26
== END ==
PROVIDERS: PCP Family Medicine; Visit Provider Specialist
DX: C64.9 Malignant neoplasm of unspecified kidney, except renal pelvis (principal)
CPT/HCPCS: 76770

== ENCOUNTER 2019-04-04 10:36 | Emergency (ER) | payer OTHER, SELFPAY ==
[2018-03-11 05:37] VITALS: BMI 23.8
[2019-04-04 10:52] VITALS: BP 149/78; PULSE 59; RESP 18; TEMP 36.5; O2SAT 98; BMI 24.4
[2019-04-04 11:40] LABS: Add Manual Diff / Slide Review NO; Basophils Absolute Auto 0 /uL (0-100); Basophils Percent Auto 0.6 % (0-2); Eosinophils Absolute Auto 0 /uL (0-450); Eosinophils Percent Auto 0.8 % (2-4); Hematocrit 36.8 % (41-53); Hemoglobin 12.4 g/dL (13.5-17.5); Lymphocytes Absolute Auto 1600 /uL (1100-4500); Mean Corpuscular HGB Conc 33.8 % (30-36); Mean Corpuscular Hemoglobin 29.1 PG (26-34); Mean Corpuscular Volume 86.2 fL (80-100); Monocytes Absolute Auto 1000 /uL (0-900); Neutrophils Absolute Auto 2300 /uL (1500-7000); Neutrophils Percent Auto 46.6 % (50-75); Platelet Count 287 X10^3/uL (150-400); Red Blood Cell Count 4.26 X10^6/uL (4.5-5.9); Red Cell Distribution Width 15.1 % (11.6-14.8)
[2019-04-04 11:47] LABS: INR 1.1 (0.9-1.3); Prothrombin Time 12.3 SECONDS (10.1-12.7)
[2019-04-04 11:50] LABS: PTT Partial Thromboplastin Tim 35 SECONDS (26.4-36.2)
[2019-04-04 11:51] LABS: Alanine Aminotransferase 19 IU/L (21-72); Albumin Globulin Ratio 1.3 (1.0-2.8); Alkaline Phosphatase 110 U/L (38-126); Aspartate Aminotransferase 21 IU/L (17-59); BUN Creatinine Ratio 17.8 (6-22); Bilirubin Total 0.6 mg/dL (0.2-1.3); Blood Urea Nitrogen 16 mg/dL (9-20); Calcium 9.4 mg/dL (8.4-10.2); Carbon Dioxide 28 mmol/L (22-32); Chloride 101 mmol/L (98-107); Estimated Glomerular Filt Rate > 60.0 mL/min (>60); Globulin 3.2 g/dL (1.7-4.1); Glucose 92 mg/dL (80-110); HEMOLYSIS < 15 (0-50); Lipase 72 U/L (23-300); Potassium 4.1 mmol/L (3.4-5.1); Sodium 137 mmol/L (137-145); Total Protein 7.2 g/dL (6.3-8.2)
--- NOTE | 2019-04-04 12:03 | DI.CT.S_ITS ---
PROCEDURE: CT ABDOMEN PELVIS W CON INDICATIONS: left lower quad pain TECHNIQUE: After the administration of intravenous contrast, 5 mm thick sections acquired from the diaphragm to the symphysis. 5 mm coronal and sagittal reformats were acquired. For radiation dose reduction, the following was used: automated exposure control, adjustment of mA and/or kV according to patient size. COMPARISON: [facility], US, US RENAL COMPLETE, 11/18/2018, 13:06. [facility], MR, MR ABDOMEN WO/W CON, 05/01/2018, 10:37. [facility], US, US RENAL COMPLETE, 03/11/2018, 17:50. [facility], US, RENAL COMPLETE, 07/06/2011, 15:02. [facility], RG, CT ABDOMEN/PELVIS WITH CONTRAST, 08/23/2006, 18:45. [facility], CT, ANGIOGRAPHY CHEST AND ABDOMEN, 04/23/2014, 23:43. [facility], CT, ABDOMEN/PELVIS WITH CONTRAST, 01/13/2015, 23:41. [facility], CT, ABDOMEN/PELVIS WITH CONTRAST, 09/22/2016, 5:05. [facility], CT, ABDOMEN/PELVIS WITH CONTRAST, 01/13/2017, 4:38. [facility], CT, CT ABDOMEN PELVIS W CON, 03/10/2018, 23:43. FINDINGS: Image quality: Excellent. ABDOMEN: Lung bases: A 5 mm subpleural nodule in the left lung base is probably round atelectasis. There is inguinal scars and atelectasis. Multiple tiny nodules or nodular infiltrates are present in the right lower lobe and right middle lobe. Heart size is normal. There is a small hiatal hernia. Solid organs: Mild hepatic fatty infiltration. Small low density nodules are noted in liver, most likely cysts. Liver is normal in size and enhancement. Gallbladder is surgically absent. Biliary system is non dilated. Pancreas enhances normally. Spleen is normal in size and enhancement. No adrenal nodules. A 2.4 cm enhancing mass is noted in the superior pole of the left kidney, suspicious for renal cell carcinoma. A 4 mm nonobstructive stone is noted in the superior pole of the left kidney. Kidneys demonstrate normal size and enhancement, without hydronephrosis. There are renal cysts bilaterally. Peritoneum and bowel: There are scattered colonic diverticula. There is segmental thickening and pericolonic stranding involving the descending colon, consistent with acute diverticulitis. No free air. There is a small amount of free fluid. No enhancing focal collections to suggest diverticular abscess. There are 2 air-fluid structures adjacent to the second cerclage of the duodenum, suspicious for duodenal diverticula. Nodes and vessels: No retroperitoneal or mesenteric adenopathy by size criteria. Aorta and inferior vena cava are normal in size. Miscellaneous: No ventral hernias. PELVIS: Genitourinary: Bladder wall is mildly thickened concentrically. Enlarged prostate. Miscellaneous: No inguinal hernias or adenopathy. Bones: No suspicious bony lesions. No vertebral body compression fractures. Degenerative changes noted in lumbar spine. IMPRESSION: 1. Acute uncomplicated diverticulitis of the descending colon. There is a small amount of free fluid. No free air or diverticular abscess. 2. A 2.4 cm solid mass is seen in the superior pole of the left kidney, suspicious for renal cell cancer. 3. A 4 mm nonobstructive stone in the left kidney. 4. Bilateral renal cysts and hepatic cysts. 5. Suspect 2 duodenal diverticula involving the second and third portions of duodenum. 6. A 5 mm subpleural nodule in the left lung base is probably round atelectasis. There are multiple tiny nodules or nodular infiltrates in the right lower lobe and right middle lobe, Most likely infectious or inflammatory etiology, such as chronic aspiration or pneumonia. Recommend clinical correlation. 7. Enlarged prostate. There is mild concentric thickening of urinary bladder wall, which may be secondary to chronic bladder outlet obstruction or cystitis. The result was discussed with Rach Keita. Dictated by: Marco Mcleod M.D. on 04/04/2019 at 12:23 Approved by: Marco Mcleod M.D. on 04/04/2019 at 12:58
[2019-04-04 12:23] VITALS: PULSE 58; O2SAT 97
[2019-04-04 12:27] LABS: Bacteria Urine None Seen; RBC Urine None Seen (0-5/HPF)
[2019-04-04 12:37] LABS: Squamous Epithelial Cell Urine 0-1 /HPF (0-5/HPF); WBC Urine 0-1/HPF (0-5/HPF)
[2019-04-04 12:38] LABS: Culture Indicated Urine Cult Not Indicated
--- NOTE | 2019-04-04 12:48 | ED_ITS ---
HPI - Abdominal Pain <Rach KeitaTOÑITOP-BC - Last Filed: 04/04/19 15:00> General Chief Complaint: Abdominal Pain Stated Complaint: severe pain in lft abd Time Seen by Provider: 04/04/19 11:37 Source: patient and family Mode of arrival: ambulatory Limitations: no limitations History of Present Illness HPI narrative: The patient is an 83-year-old male nonsmoker with history of a tremor who presents with his with a chief complaint of abdominal pain. He states he has a history of diverticulitis as well as small bowel obstructions. He states the pain came on suddenly in his left lower quadrant last night. He denies any fevers, vomiting or diarrhea. He states he had a last bowel movement this morning. He denies any chest pain or shortness of breath he states that the pain is crampy and severe. Does not radiate anywhere. He denies any dysuria urgency or frequency other than his chronic related to prostatitis. He has not taken anything to feel better. Related Data Home Medications Medication Instructions Recorded Confirmed CA PANTOTHENATE/FOLIC ACID/VIT 1 liq PO QDAY #0 11/18/11 03/14/19 (MULTIVITAMIN) VITAMIN D (Vitamin D3) 1,000 unit PO QDAY #0 11/18/11 03/14/19 aspirin 81 mg PO DAILY #0 06/03/12 03/14/19 allopurinol 100 mg PO DAILY 04/04/19 04/04/19 atenolol 100 mg PO DAILY 04/04/19 04/04/19 citalopram 40 mg PO DAILY 04/04/19 04/04/19 finasteride 5 mg PO DAILY 04/04/19 04/04/19 Previous Rx's Medication Instructions Recorded simvastatin 20 mg PO HS #90 tab 01/07/19 amoxicillin-pot clavulanate 1 tab PO TID #30 tab 04/04/19 hydrocodone-acetaminophen 1 tab PO Q4-6H PRN #10 tab 04/04/19 ondansetron 4 mg PO Q8H PRN #30 tab 04/04/19 Allergies Allergy/AdvReac Type Severity Reaction Status Date / Time carbamazepine [CARBAMAZEPINE] Allergy Mild HIVES Verified 03/14/19 12:11 codeine [CODEINE] Allergy Mild CONSTIPATIO Verified 03/14/19 12:11 N tamsulosin [TAMSULOSIN] Allergy Mild REAL BAD Verified 03/14/19 12:11 COUGH morphine [MORPHINE] AdvReac Unknown severe Verified 03/14/19 12:11 nausea/vomiting Review of Systems <CHAD Newsome - Last Filed: 04/04/19 15:00> Review of Systems GENERAL: Denies chills, fatigue, malaise, fever, sweats. HEENT: Denies sinus pain, ear pain, sore throat, difficulty swallowing, dizziness. RESPIRATORY: Denies dyspnea, cough, wheezing, hemoptysis, sputum. CARDIOVASCULAR: Denies chest pain, palpitations, orthopnea, edema, GASTROINTESTINAL: See HPI : Denies dysuria, frequency, incontinence, hematuria, urinary retention. MUSCULOSKELETAL: denies weakness, joint pain, or bony pain SKIN: Denies rash, skin lesions, or other NEUROLOGIC: Denies weakness, headache, numbness, change in speech, confusion, seizures, incoordination. PSYCHIATRIC: No concerning psychosocial issues. 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) Hemorrhoids (Chronic) History of small bowel obstruction (Chronic) Polymyalgia rheumatica (Chronic) Trigeminal neuralgia (Chronic) Bilateral renal cysts (Resolved) Cataract (Resolved) Myocardial infarction (Resolved) Surgical History History of angioplasty (Resolved 2001) History of gastrointestinal surgery (Resolved) Hx of inguinal hernia surgery (Resolved) Status post cholecystectomy (Resolved) Family History Father Macular degeneration Social History marital status: household members: spouse Smoking Status: Never smoker alcohol intake: current (1-2 A DAY ) substance use type: does not use Family History Father Macular degeneration Social History marital status: household members: spouse Smoking Status: Never smoker alcohol intake: current (1-2 A DAY ) substance use type: does not use Exam <CHAD Newsome - Last Filed: 04/04/19 15:00> Narrative Exam Narrative: GENERAL: This is a well-nourished, well-developed patient, in no acute distress, lying on stretcher with at bedside HEAD: Atraumatic. Normocephalic. No temporal or scalp tenderness. EYES: Pupils equal round and reactive. Extraocular motions intact. No scleral icterus. No injection or drainage. ENT: Nose without bleeding, purulent drainage or septal hematoma. Throat without erythema, tonsillar hypertrophy or exudate. Uvula midline. Airway patent. NECK: Trachea midline. No JVD or lymphadenopathy. Supple, nontender, no meningeal signs. CARDIOVASCULAR: Regular rate and rhythm without murmurs, gallops, or rubs. RESPIRATORY: Clear to auscultation. Breath sounds equal bilaterally. No wheezes, rales, or rhonchi. No cough. No increased respiratory effort. No accessory muscle use. GASTROINTESTINAL: Abdomen is tender to palpation left lower quadrant. Guarding noted left lower quadrant. No hepato-splenomegaly, or palpable masses. No guarding. Active bowel sounds all 4 quadrants. EXTREMITIES: No clubbing, cyanosis, or edema. No joint tenderness, effusion, or edema noted. BACK: Nontender without deformity or crepitance. No flank tenderness. NEURO: AOx3. Tremor noted. SKIN: No rash or erythema. Initial Vital Signs Initial Vital Signs: Vital Signs Temperature 97.7 F 04/04/19 10:52 Pulse Rate 59 L 04/04/19 10:52 Respiratory Rate 18 04/04/19 10:52 Blood Pressure 149/78 H 04/04/19 10:52 Pulse Oximetry 98 04/04/19 10:52 <Rach Sorensen DO - Last Filed: 04/04/19 19:22> Initial Vital Signs Initial Vital Signs: Vital Signs Temperature 97.7 F 04/04/19 10:52 Pulse Rate 59 L 04/04/19 10:52 Respiratory Rate 18 04/04/19 10:52 Blood Pressure 149/78 H 04/04/19 10:52 Pulse Oximetry 98 04/04/19 10:52 Course <CHAD Newsome - Last Filed: 04/04/19 15:00> Orders Ordered: ED Orders 04/04/19 10:56 EKG-12 Lead Stat 04/04/19 11:30 Complete Blood Count AUTO DIFF Stat Comprehensive Metabolic Panel Stat Lipase Stat Partial Thromboplastin Time Stat Prothrombin Time INR Stat 04/04/19 12:03 CT abdomen pelvis w con Stat 04/04/19 12:25 Urine Microscopic Stat Vital Signs - 8 hr 04/04/19 12:23 04/04/19 13:03 Pulse Rate 58 L 58 L Respiratory Rate 18 Blood Pressure [Left Arm] 139/80 Pulse Oximetry 97 100 <Rach Sorensen DO - Last Filed: 04/04/19 19:22> Orders Ordered: ED Orders 04/04/19 10:56 EKG-12 Lead Stat 04/04/19 11:30 Complete Blood Count AUTO DIFF Stat Comprehensive Metabolic Panel Stat Lipase Stat Partial Thromboplastin Time Stat Prothrombin Time INR Stat 04/04/19 12:03 CT abdomen pelvis w con Stat 04/04/19 12:25 Urine Microscopic Stat Vital Signs - 8 hr 04/04/19 12:23 04/04/19 13:03 Pulse Rate 58 L 58 L Respiratory Rate 18 Blood Pressure [Left Arm] 139/80 Pulse Oximetry 97 100 MDM - Abdominal Pain <CHAD Newsome - Last Filed: 04/04/19 15:00> Lab Data Result diagrams: 04/04/19 11:30 04/04/19 11:30 Lab Results 04/04/19 04/04/19 04/04/19 Range/Units 11:30 11:30 11:30 WBC 5.0 (4.5-11.0) X10^3/uL RBC 4.26 L (4.5-5.9) X10^6/uL Hgb 12.4 L (13.5-17.5) g/dL Hct 36.8 L (41-53) % MCV 86.2 (80-100) fL MCH 29.1 (26-34) PG MCHC 33.8 (30-36) % RDW 15.1 H (11.6-14.8) % Plt Count 287 (150-400) X10^3/uL Neut % (Auto) 46.6 L (50-75) % Lymph % (Auto) 32.0 (25-40) % [place] % (Auto) 20.0 H (3-14) % Eos % (Auto) 0.8 L (2-4) % Baso % (Auto) 0.6 (0-2) % Neut # (Auto) 2300 (1885-9554) /uL Lymph # (Auto) 1600 (1975-0946) /uL [place] # (Auto) 1000 H (0-900) /uL Eos # (Auto) 0 (0-450) /uL Baso # (Auto) 0 (0-100) /uL PT 12.3 (10.1-12.7) SECONDS INR 1.1 (0.9-1.3) APTT 35 (26.4-36.2) SECONDS Sodium 137 (137-145) mmol/L Potassium 4.1 (3.4-5.1) mmol/L Chloride 101 (98-107) mmol/L Carbon Dioxide 28 (22-32) mmol/L BUN 16 (9-20) mg/dL Creatinine 0.90 (0.66-1.25) mg/dL Estimated GFR > 60.0 (>60) mL/min BUN/Creatinine Ratio 17.8 (6-22) Glucose 92 (80-110) mg/dL Calcium 9.4 (8.4-10.2) mg/dL Total Bilirubin 0.6 (0.2-1.3) mg/dL AST 21 (17-59) IU/L ALT 19 L (21-72) IU/L Alkaline Phosphatase 110 (38-126) U/L Total Protein 7.2 (6.3-8.2) g/dL Albumin 4.0 (3.5-5.0) g/dL Globulin 3.2 (1.7-4.1) g/dL Albumin/Globulin Ratio 1.3 (1.0-2.8) Lipase 72 (23-300) U/L Urine RBC (0-5/HPF) Urine WBC (0-5/HPF) Ur Squamous Epith Cells (0-5/HPF) Urine Bacteria (None) Ur Culture Indicated? 04/04/19 Range/Units 12:25 WBC (4.5-11.0) X10^3/uL RBC (4.5-5.9) X10^6/uL Hgb (13.5-17.5) g/dL Hct (41-53) % MCV (80-100) fL MCH (26-34) PG MCHC (30-36) % RDW (11.6-14.8) % Plt Count (150-400) X10^3/uL Neut % (Auto) (50-75) % Lymph % (Auto) (25-40) % [place] % (Auto) (3-14) % Eos % (Auto) (2-4) % Baso % (Auto) (0-2) % Neut # (Auto) (3175-2996) /uL Lymph # (Auto) (6498-6654) /uL [place] # (Auto) (0-900) /uL Eos # (Auto) (0-450) /uL Baso # (Auto) (0-100) /uL PT (10.1-12.7) SECONDS INR (0.9-1.3) APTT (26.4-36.2) SECONDS Sodium (137-145) mmol/L Potassium (3.4-5.1) mmol/L Chloride (98-107) mmol/L Carbon Dioxide (22-32) mmol/L BUN (9-20) mg/dL Creatinine (0.66-1.25) mg/dL Estimated GFR (>60) mL/min BUN/Creatinine Ratio (6-22) Glucose (80-110) mg/dL Calcium (8.4-10.2) mg/dL Total Bilirubin (0.2-1.3) mg/dL AST (17-59) IU/L ALT (21-72) IU/L Alkaline Phosphatase (38-126) U/L Total Protein (6.3-8.2) g/dL Albumin (3.5-5.0) g/dL Globulin (1.7-4.1) g/dL Albumin/Globulin Ratio (1.0-2.8) Lipase (23-300) U/L Urine RBC None seen (0-5/HPF) Urine WBC 0-1/hpf (0-5/HPF) Ur Squamous Epith Cells 0-1 /hpf (0-5/HPF) Urine Bacteria None seen (None) Ur Culture Indicated? Cult not indicated Point of care testing: Urine Dip Bedside Urine Glucose Negative Bedside Urine Bilirubin - Negative Bedside Urine Ketone - Negative Urine Specific [place] 1.025 Bedside Urine Occult Blood - Negative Bedside Urine pH 6.0 Bedside Urine Protein +/- 15 Bedside Urine Urobilinogen +/- 1mg Bedside Urine Nitrite - Negative Bedside Urine Leukocytes - Negative Esterase MDM Narrative Medical decision making narrative: The patient is an 83-year-old male who presents with a chief complaint of abdominal pain. He is found have diverticulitis. I did discuss initiating treatment with Cipro and Flagyl. The patient his would like to avoid fluoroquinolones due to the black box warning regarding tendons. We elected to use Augmentin instead. I discussed that this is 2nd line therapy, but they are willing to do this to avoid the possible side effects of the quinolones. I did discuss with the patient his i ncidental findings of a kidney mass, which is already being followed by his PCP. I discussed his cysts on imaging, which she is aware of. I discussed the atelectasis in his lung and he will follow up with primary care provider. He states he already has planned follow-up on Sunday. He was given 10 days of Augmentin 500 mg t.i.d., Zofran and [place]. I did discuss that the [place] is very constipating, he states he will only use it if necessary, especially given his history of bowel obstruction. I discussed clear liquid diet with slow advance. I encouraged follow-up with PCP. Discussed return precautions including inability keep down fluids. Patient and have no questions or concerns upon discharge. <Rach Sorensen, DO - Last Filed: 04/04/19 19:22> Lab Data Lab Results 04/04/19 04/04/19 04/04/19 Range/Units 11:30 11:30 11:30 WBC 5.0 (4.5-11.0) X10^3/uL RBC 4.26 L (4.5-5.9) X10^6/uL Hgb 12.4 L (13.5-17.5) g/dL Hct 36.8 L (41-53) % MCV 86.2 (80-100) fL MCH 29.1 (26-34) PG MCHC 33.8 (30-36) % RDW 15.1 H (11.6-14.8) % Plt Count 287 (150-400) X10^3/uL Neut % (Auto) 46.6 L (50-75) % Lymph % (Auto) 32.0 (25-40) % [place] % (Auto) 20.0 H (3-14) % Eos % (Auto) 0.8 L (2-4) % Baso % (Auto) 0.6 (0-2) % Neut # (Auto) 2300 (5771-2416) /uL Lymph # (Auto) 1600 (5730-0707) /uL [place] # (Auto) 1000 H (0-900) /uL Eos # (Auto) 0 (0-450) /uL Baso # (Auto) 0 (0-100) /uL PT 12.3 (10.1-12.7) SECONDS INR 1.1 (0.9-1.3) APTT 35 (26.4-36.2) SECONDS Sodium 137 (137-145) mmol/L Potassium 4.1 (3.4-5.1) mmol/L Chloride 101 (98-107) mmol/L Carbon Dioxide 28 (22-32) mmol/L BUN 16 (9-20) mg/dL Creatinine 0.90 (0.66-1.25) mg/dL Estimated GFR > 60.0 (>60) mL/min BUN/Creatinine Ratio 17.8 (6-22) Glucose 92 (80-110) mg/dL Calcium 9.4 (8.4-10.2) mg/dL Total Bilirubin 0.6 (0.2-1.3) mg/dL AST 21 (17-59) IU/L ALT 19 L (21-72) IU/L Alkaline Phosphatase 110 (38-126) U/L Total Protein 7.2 (6.3-8.2) g/dL Albumin 4.0 (3.5-5.0) g/dL Globulin 3.2 (1.7-4.1) g/dL Albumin/Globulin Ratio 1.3 (1.0-2.8) Lipase 72 (23-300) U/L Urine RBC (0-5/HPF) Urine WBC (0-5/HPF) Ur Squamous Epith Cells (0-5/HPF) Urine Bacteria (None) Ur Culture Indicated? 04/04/19 Range/Units 12:25 WBC (4.5-11.0) X10^3/uL RBC (4.5-5.9) X10^6/uL Hgb (13.5-17.5) g/dL Hct (41-53) % MCV (80-100) fL MCH (26-34) PG MCHC (30-36) % RDW (11.6-14.8) % Plt Count (150-400) X10^3/uL Neut % (Auto) (50-75) % Lymph % (Auto) (25-40) % [place] % (Auto) (3-14) % Eos % (Auto) (2-4) % Baso % (Auto) (0-2) % Neut # (Auto) (0162-5452) /uL Lymph # (Auto) (3214-5687) /uL [place] # (Auto) (0-900) /uL Eos # (Auto) (0-450) /uL Baso # (Auto) (0-100) /uL PT (10.1-12.7) SECONDS INR (0.9-1.3) APTT (26.4-36.2) SECONDS Sodium (137-145) mmol/L Potassium (3.4-5.1) mmol/L Chloride (98-107) mmol/L Carbon Dioxide (22-32) mmol/L BUN (9-20) mg/dL Creatinine (0.66-1.25) mg/dL Estimated GFR (>60) mL/min BUN/Creatinine Ratio (6-22) Glucose (80-110) mg/dL Calcium (8.4-10.2) mg/dL Total Bilirubin (0.2-1.3) mg/dL AST (17-59) IU/L ALT (21-72) IU/L Alkaline Phosphatase (38-126) U/L Total Protein (6.3-8.2) g/dL Albumin (3.5-5.0) g/dL Globulin (1.7-4.1) g/dL Albumin/Globulin Ratio (1.0-2.8) Lipase (23-300) U/L Urine RBC None seen (0-5/HPF) Urine WBC 0-1/hpf (0-5/HPF) Ur Squamous Epith Cells 0-1 /hpf (0-5/HPF) Urine Bacteria None seen (None) Ur Culture Indicated? Cult not indicated Point of care testing: Urine Dip Bedside Urine Glucose Negative Bedside Urine Bilirubin - Negative Bedside Urine Ketone - Negative Urine Specific [place] 1.025 Bedside Urine Occult Blood - Negative Bedside Urine pH 6.0 Bedside Urine Protein +/- 15 Bedside Urine Urobilinogen +/- 1mg Bedside Urine Nitrite - Negative Bedside Urine Leukocytes - Negative Esterase Discharge Plan Departure Patient Disposition: Home Clinical Impression: Diverticulitis Discharge Date/Time: 04/04/19 13:49 Interventions: ED Discharge Assessment Last Done: 04/04/19 13:49 Instructions: DI for Diverticulitis Activity Restrictions/Additional Instructions: Your CT scan shows diverticulitis. We have elected to use Augmentin for treatment due to decreased side effects. Please monitor for fever, inability keep down fluids or any acute concerns. Please come back to the ER for any acute concerns. Please follow up with primary care provider. I have given you prescriptions for antibiotics, pain medications and nausea medications. Be aware the pain medications can be constipating and sedating. Prescriptions: New amoxicillin-pot clavulanate 500-125 mg tablet 1 tab PO TID Qty: 30 RF: 0 ondansetron 4 mg tablet,disintegrating 4 mg PO Q8H PRN (Reason: nausea and vomiting) Qty: 30 RF: 0 hydrocodone-acetaminophen 5-325 mg tablet 1 tab PO Q4-6H PRN (Reason: pain) Qty: 10 RF: 0 No Action CA PANTOTHENATE/FOLIC ACID/VIT (MULTIVITAMIN) 1 liq PO QDAY Qty: 0 RF: 0 VITAMIN D (Vitamin D3) 1,000 unit PO QDAY Qty: 0 RF: 0 aspirin 81 mg Tablet,Chewable 81 mg PO DAILY Qty: 0 RF: 0 simvastatin 20 mg tablet 20 mg PO HS Qty: 90 RF: 3 citalopram 40 mg tablet 40 mg PO DAILY RF: 0 allopurinol 100 mg tablet 100 mg PO DAILY RF: 0 atenolol 50 mg tablet 100 mg PO DAILY RF: 0 finasteride 5 mg tablet 5 mg PO DAILY RF: 0 Referrals: Samson Perez MD [Primary Care Provider] - <Rach Sorensen DO - Last Filed: 04/04/19 19:22> Cosign ED Attending Cosignature Attestation: I was immediately available in the department for consultation. This documentation has been reviewed and I agree with assessment and plan. Supervised by Rach Sorensen DO
[2019-04-04 13:03] VITALS: BP 139/80; PULSE 58; RESP 18; O2SAT 100
== END 2019-04-04 13:49 | disposition home or self-care (01) ==
PROVIDERS: Emergency Medicine; Emergency Provider Nurse Practitioner Family; PCP Family Medicine
DX: K57.92 Diverticulitis of intestine, part unspecified, without perforation or abscess without bleeding (principal); I25.2 Old myocardial infarction; I10 Essential (primary) hypertension; Z86.79 Personal history of other diseases of the circulatory system
CPT/HCPCS: 36591; 74177; 80053; 81003; 81015; 83690; 85025; 85610; 85730; 93005; 99283; 99285; Q9967

== ENCOUNTER → 2019-06-02 10:40 | Outpatient (CLI) | payer OTHER, SELFPAY ==
[2018-03-11 05:37] VITALS: BMI 23.8
--- NOTE | 2019-06-02 10:45 | DI.US.S_ITS ---
PROCEDURE: US RENAL COMPLETE INDICATIONS: LEFT KIDNEY MASS TECHNIQUE: Real-time scanning was performed of the kidneys and bladder, with image documentation. COMPARISON: [facility], US, US RENAL COMPLETE, 11/18/2018, 13:06. [facility], CT, CT ABDOMEN PELVIS W CON, 03/10/2018, 23:43. [facility], CT, CT ABDOMEN PELVIS W CON, 04/04/2019, 11:59. FINDINGS: Kidneys: Kidneys are normal in size. Right kidney measures 10.3 cm long; left kidney measures 10.9 cm long. Right renal cortical thickness is 1.4 cm; left renal cortical thickness is 1.7 cm. Renal cortical echotexture is normal. No hydronephrosis. Multiple bilateral renal cysts redemonstrated largest on the right measuring 5.8 x 5.4 x 3.0 cm and on the left 2.9 x 2.8 x 2.5 cm. Mildly complex cyst again seen involving the superior pole the right kidney similar in size to prior CT scan measuring 2.5 x 2.3 x 1.9 cm. Cyst Solid superior pole left renal mass present as as seen on prior CT scan measuring 2.8 x 2.7 x 2.3 cm appearing similar in size. Bladder: Pre-void bladder volume is 46 mL. Post-void residual is 11 mL. Pre-void images demonstrate no intraluminal masses or stones. On pre-void images, bilateral ureteral jets are noted with color Doppler interrogation. (Of note, ureteral jets may not be detectable in up to 25% of cases due to insufficient differences in specific gravity between ureteral and bladder urine). Multiple bladder trabeculations noted and the urinary bladder wall appears mildly thickened which may be related to the decompressed state. Correlate clinically. Prostate is enlarged with overall volume of 79 cc. Miscellaneous: No free pelvic fluid. IMPRESSION: 1. Solid left renal mass as was seen on prior CT scan which is highly suspicious for renal cell carcinoma. 2. Multiple renal cysts redemonstrated, one of which on the right is mildly complex and not significantly changed from prior CT. 3. Urinary bladder wall trabeculations with thickening of the wall which may be related to decompressed state. Correlate clinically. Dictated by: Adolfo DAVIS Interpreted: Adelia London MD on 06/02/2019 at 14:30 Approved by: Adelia London M.D. on 06/02/2019 at 16:30
== END ==
PROVIDERS: PCP Family Medicine; Visit Provider Family Medicine
DX: D49.511 Neoplasm of unspecified behavior of right kidney (principal); N28.89 Other specified disorders of kidney and ureter; N28.1 Cyst of kidney, acquired; N32.89 Other specified disorders of bladder; N40.0 Benign prostatic hyperplasia without lower urinary tract symptoms
CPT/HCPCS: 76770

== ENCOUNTER 2019-06-13 22:26 | Emergency (ER) | payer OTHER, SELFPAY ==
[2018-03-11 05:37] VITALS: BMI 23.8
[2019-06-13 22:38] VITALS: BP 183/81; PULSE 64; RESP 15; TEMP 36.1; O2SAT 98; BMI 24.8
--- NOTE | 2019-06-13 22:53 | ED_ITS ---
HPI - Abdominal Pain General Chief Complaint: Abdominal Pain Stated Complaint: LEFT LOWER SIDE PAIN Time Seen by Provider: 06/13/19 22:34 Source: patient Mode of arrival: ambulatory Limitations: no limitations History of Present Illness HPI narrative: Patient is an 83-year-old male here for evaluation of left-sided abdominal pain. He states he does have a history of diverticulitis and also history of bowel obstructions. He has had a bowel resection in the past. He states that earlier today was fairly sudden onset of left-sided abdominal pain. Some nausea no vomiting. No change in bowel habits. No bloody stool. No urinary symptoms. He states that this does not feel like his prior bowel obstruction. He states it somewhat feels like prior episodes of diverticulitis. He was concerned about not being able to sleep tonight because of the pain but did not want to take any of his pain medication at home and wanted evaluated. Related Data Home Medications Medication Instructions Recorded Confirmed CA PANTOTHENATE/FOLIC ACID/VIT 1 liq PO QDAY #0 11/18/11 06/03/19 (MULTIVITAMIN) VITAMIN D (Vitamin D3) 1,000 unit PO QDAY #0 11/18/11 06/03/19 aspirin 81 mg PO DAILY #0 06/03/12 06/03/19 allopurinol 100 mg PO DAILY 04/04/19 06/03/19 atenolol 100 mg PO DAILY 04/04/19 06/03/19 citalopram 40 mg PO DAILY 04/04/19 06/03/19 finasteride 5 mg PO DAILY 04/04/19 06/03/19 Previous Rx's Medication Instructions Recorded simvastatin 20 mg PO HS #90 tab 01/07/19 amoxicillin-pot clavulanate 1 tab PO BID 7 Days #14 tab 06/14/19 [Augmentin] Allergies Allergy/AdvReac Type Severity Reaction Status Date / Time carbamazepine [CARBAMAZEPINE] Allergy Mild HIVES Verified 06/13/19 22:42 codeine [CODEINE] Allergy Mild CONSTIPATIO Verified 06/13/19 22:42 N tamsulosin [TAMSULOSIN] Allergy Mild REAL BAD Verified 06/13/19 22:42 COUGH morphine [MORPHINE] AdvReac Unknown severe Verified 06/13/19 22:42 nausea/vomiting Review of Systems Constitutional Denies fever(s) Cardiovascular Denies chest pain and Denies dyspnea Respiratory Denies dyspnea Gastrointestinal Gastrointestinal: Reports abdominal pain, Denies change in stool character, Reports nausea and Denies vomiting Genitourinary Denies dysuria Musculoskeletal Denies myalgias and Denies arthralgias Integumentary/Breasts Denies lesions and Denies rash Neurologic Denies behavioral changes Psychiatric Denies behavioral changes Hematologic/Lymphatic Denies easy bleeding and Denies easy bruising [facility] Medical History Small bowel obstruction (Chronic) Gout (Chronic) Coronary artery disease (Chronic) Diverticular disease of colon (Chronic) Hyperlipidemia (Chronic) Hypertension (Chronic) 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) Osteoarthritis of right hand (Chronic 12/19/13) 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) Hemorrhoids (Chronic) History of small bowel obstruction (Chronic) Polymyalgia rheumatica (Chronic) Trigeminal neuralgia (Chronic) Bilateral renal cysts (Resolved) Cataract (Resolved) Myocardial infarction (Resolved) Surgical History History of angioplasty (Resolved 2001) History of gastrointestinal surgery (Resolved) Hx of inguinal hernia surgery (Resolved) Status post cholecystectomy (Resolved) Family History Father Macular degeneration Social History marital status: household members: spouse Smoking Status: Never smoker alcohol intake: current (1-2 A DAY ) substance use type: does not use Social History marital status: household members: spouse Smoking Status: Never smoker alcohol intake: current (1-2 A DAY ) substance use type: does not use Exam Initial Vital Signs Initial Vital Signs: Vital Signs Temperature 97 F L 06/13/19 22:38 Pulse Rate 64 06/13/19 22:38 Respiratory Rate 15 06/13/19 22:38 Blood Pressure 183/81 H 06/13/19 22:38 Pulse Oximetry 98 06/13/19 22:38 Const General: cooperative, well developed and well groomed Orientation: alert and awake HENMT Head: normal to inspection and normocephalic Resp Effort & Inspection: normal respiratory effort Auscultation: clear to auscultation bilaterally Cardio Rate: regular rate Rhythm: regular rhythm GI Inspection: non-distended Palpation: soft and tender (Left-sided abdominal tenderness) Back/Spine/Pelvis Back: No CVA tenderness Skin General: no rashes or lesions noted Lesions: no lesions Rashes: no rashes Neuro General: alert and awake Cognition: normal cognition Speech: speech normal Extrem General: normal to inspection and capillary refill normal Psych Appearance: grossly normal and well kempt Course Orders Ordered: ED Orders 06/13/19 22:40 Complete Blood Count AUTO DIFF Stat Comprehensive Metabolic Panel Stat Lipase Stat Partial Thromboplastin Time Stat Prothrombin Time INR Stat 06/13/19 22:43 EKG-12 Lead Stat 06/13/19 23:22 CT abdomen pelvis w con Stat Discontinued Medications Hydrocodone Bitart/Acetaminophen (Vicodin Prepack) 1 bottle MISC SEEINSTR ONE Stop: 06/14/19 00:20 Last Admin: 06/14/19 00:28 Dose: 1 bottle Amoxicillin/Clavulanate Potassium (Augmentin 875-125 Mg) 1 tab PO NOW ONE Stop: 06/14/19 00:20 Last Admin: 06/14/19 00:28 Dose: 1 tab Sodium Chloride (Normal Saline 0.9%) 1,000 mls @ 1,000 mls/hr IV BOLUS ONE Stop: 06/14/19 00:20 Last Admin: 06/13/19 23:58 Dose: 1,000 mls/hr Vital Signs - 8 hr 06/13/19 22:38 06/14/19 00:06 06/14/19 00:50 Temperature 97 F L Pulse Rate 64 59 L 57 L Respiratory Rate 15 19 19 Blood Pressure 183/81 H 159/89 H Blood Pressure [Left Arm] 159/67 H Pulse Oximetry 98 100 99 MDM - Abdominal Pain Lab Data Attestation: I reviewed the patient's lab results. Result diagrams: 06/13/19 22:40 06/13/19 22:40 Lab Results 06/13/19 06/13/19 06/13/19 Range/Units 22:40 22:40 22:40 WBC 5.1 (4.5-11.0) X10^3/uL RBC 4.37 L (4.5-5.9) X10^6/uL Hgb 12.8 L (13.5-17.5) g/dL Hct 37.5 L (41-53) % MCV 85.7 (80-100) fL MCH 29.2 (26-34) PG MCHC 34.1 (30-36) % RDW 15.1 H (11.6-14.8) % Plt Count 316 (150-400) X10^3/uL Neut % (Auto) 36.0 L (50-75) % Lymph % (Auto) 49.6 H (25-40) % [place] % (Auto) 13.1 (3-14) % Eos % (Auto) 0.7 L (2-4) % Baso % (Auto) 0.6 (0-2) % Neut # (Auto) 1800 (4369-4930) /uL Lymph # (Auto) 2500 (0976-2267) /uL [place] # (Auto) 700 (0-900) /uL Eos # (Auto) 0 (0-450) /uL Baso # (Auto) 0 (0-100) /uL PT 11.3 (10.1-12.7) SECONDS INR 1.0 (0.9-1.3) APTT 36 (26.4-36.2) SECONDS Sodium 138 (137-145) mmol/L Potassium 4.5 (3.4-5.1) mmol/L Chloride 99 (98-107) mmol/L Carbon Dioxide 30 (22-32) mmol/L BUN 20 (9-20) mg/dL Creatinine 1.00 (0.66-1.25) mg/dL Estimated GFR > 60.0 (>60) mL/min BUN/Creatinine Ratio 20.0 (6-22) Glucose 94 (80-110) mg/dL Calcium 9.4 (8.4-10.2) mg/dL Total Bilirubin 0.4 (0.2-1.3) mg/dL AST 37 (17-59) IU/L ALT 27 (21-72) IU/L Alkaline Phosphatase 113 (38-126) U/L Total Protein 7.4 (6.3-8.2) g/dL Albumin 4.2 (3.5-5.0) g/dL Globulin 3.2 (1.7-4.1) g/dL Albumin/Globulin Ratio 1.3 (1.0-2.8) Lipase 149 (23-300) U/L Imaging Data CT scan - abdomen: Radiologist's impression: Preliminary read by [facility] Acute distal descending colon diverticulitis without complication ECG Data Attestation: I personally reviewed and interpreted this ECG as follows: Prior ECG tracings: not available for review Interpretation: Sinus rhythm Ventricular rate is 60 First degree AV block with the as needed oval 303 milliseconds Left axis deviation LVH Normal QTC No ST T wave changes MDM Narrative Medical decision making narrative: Patient is nontoxic appearing. He does have left-sided abdominal tenderness and a CT scan concerning for diverticulitis. No signs of bowel obstruction. He was given a dose of Augmentin here in the emergency department will send home with prescription for the remainder course. Also sent home with a very short course of pain medication. He states that he is not allergic to hydrocodone. He was given return precautions follow-up instructions. Patient expressed understanding and agreement plan. Discharge Plan Departure Patient Disposition: Home Clinical Impression: Diverticulitis Discharge Date/Time: 06/14/19 00:54 Interventions: ED Discharge Assessment Last Done: 06/14/19 00:50 Instructions: DI for Diverticulitis Activity Restrictions/Additional Instructions: Take all the medication as directed. Also recommend you start on a fiber supplementation such as Citrucel or Metamucil like we discussed. Return to the emergency department for any new or worsening symptoms. Contact your primary doctor on Sunday for follow-up. Prescriptions: New amoxicillin-pot clavulanate [Augmentin] 875-125 mg tablet 1 tab PO BID 7 Days Qty: 14 RF: 0 No Action CA PANTOTHENATE/FOLIC ACID/VIT (MULTIVITAMIN) 1 liq PO QDAY Qty: 0 RF: 0 VITAMIN D (Vitamin D3) 1,000 unit PO QDAY Qty: 0 RF: 0 aspirin 81 mg Tablet,Chewable 81 mg PO DAILY Qty: 0 RF: 0 simvastatin 20 mg tablet 20 mg PO HS Qty: 90 RF: 3 citalopram 40 mg tablet 40 mg PO DAILY RF: 0 allopurinol 100 mg tablet 100 mg PO DAILY RF: 0 atenolol 50 mg tablet 100 mg PO DAILY RF: 0 finasteride 5 mg tablet 5 mg PO DAILY RF: 0 Referrals: Samson Perez MD [Primary Care Provider] -
[2019-06-13 22:55] LABS: Prothrombin Time 11.3 SECONDS (10.1-12.7)
[2019-06-13 22:57] LABS: PTT Partial Thromboplastin Tim 36 SECONDS (26.4-36.2)
[2019-06-13 22:59] LABS: Alanine Aminotransferase 27 IU/L (21-72); Albumin 4.2 g/dL (3.5-5.0); Albumin Globulin Ratio 1.3 (1.0-2.8); Alkaline Phosphatase 113 U/L (38-126); Aspartate Aminotransferase 37 IU/L (17-59); Bilirubin Total 0.4 mg/dL (0.2-1.3); Blood Urea Nitrogen 20 mg/dL (9-20); Calcium 9.4 mg/dL (8.4-10.2); Carbon Dioxide 30 mmol/L (22-32); Chloride 99 mmol/L (98-107); Estimated Glomerular Filt Rate > 60.0 mL/min (>60); Globulin 3.2 g/dL (1.7-4.1); Glucose 94 mg/dL (80-110); HEMOLYSIS < 15 (0-50); Lipase 149 U/L (23-300); Potassium 4.5 mmol/L (3.4-5.1); Sodium 138 mmol/L (137-145); Total Protein 7.4 g/dL (6.3-8.2)
[2019-06-13 23:01] LABS: Add Manual Diff / Slide Review NO; Basophils Absolute Auto 0 /uL (0-100); Basophils Percent Auto 0.6 % (0-2); Eosinophils Absolute Auto 0 /uL (0-450); Eosinophils Percent Auto 0.7 % (2-4); Hematocrit 37.5 % (41-53); Hemoglobin 12.8 g/dL (13.5-17.5); Lymphocytes Absolute Auto 2500 /uL (1100-4500); Lymphocytes Percent Auto 49.6 % (25-40); Mean Corpuscular HGB Conc 34.1 % (30-36); Mean Corpuscular Hemoglobin 29.2 PG (26-34); Mean Corpuscular Volume 85.7 fL (80-100); Monocytes Absolute Auto 700 /uL (0-900); Monocytes Percent Auto 13.1 % (3-14); Neutrophils Absolute Auto 1800 /uL (1500-7000); Platelet Count 316 X10^3/uL (150-400); Red Blood Cell Count 4.37 X10^6/uL (4.5-5.9); Red Cell Distribution Width 15.1 % (11.6-14.8); White Blood Cell Count 5.1 X10^3/uL (4.5-11.0)
--- NOTE | 2019-06-13 23:22 | DI.CT.S_ITS ---
PROCEDURE: CT ABDOMEN PELVIS W CON INDICATIONS: Left-sided abdominal pain TECHNIQUE: After the administration of oral and intravenous contrast, 5 mm thick sections acquired from the diaphragms to the symphysis. 5 mm thick coronal and sagittal reformats were performed. For radiation dose reduction, the following was used: automated exposure control, adjustment of mA and/or kV according to patient size. COMPARISON: [facility], CT, CT ABDOMEN PELVIS W CON, 04/04/2019, 11:59. FINDINGS: Image quality: Diagnostic. ABDOMEN: Lung bases: Mild scarring versus atelectasis within the bilateral posterior costophrenic angles and the lingula are present. Heart size is normal. Mitral valve calcifications are noted. Solid organs: The liver is noted to be hypodense when compared to the spleen, suggesting hepatic steatosis. There is a simple cyst evident within the caudate lobe that measures approximately 1.1 cm in diameter. Additional simple appearing cyst involving the periphery of the posterior segment of the right hepatic lobe is present measuring up to 1.3 cm (image 21, series 2). The gallbladder is surgically absent. There is no intrahepatic or extrahepatic biliary dilatation. The spleen is within normal limits. The pancreas and adrenals are unremarkable. The kidneys are normal in size. There is no hydronephrosis. There appears to be a heterogeneously enhancing partly exophytic mass arising from the upper portion of the left kidney that measures approximately 2.3 x 2.1 cm (image 39, series 4). This is similar in appearance to the previous exam, given differences in imaging technique. There is a 4 mm nonobstructing upper right renal calculus. Simple appearing cysts involving the right kidney are noted. Peritoneum and bowel: There may be a small hiatal hernia. The stomach is otherwise grossly unremarkable. The small bowel loops are nondilated. The colon is not significantly distended. Mild to moderate residual stool seen within the proximal colon. The appendix is normal in size and appearance. There is moderate focal wall thickening involving a portion of the descending colon, which correlates with the previously seen area of inflammation on the prior study. There is mild edema within the adjacent mesentery on the current exam at this location. Adjacent diverticula are present. Additional areas of colonic diverticulosis are present. Nodes and vessels: No retroperitoneal or mesenteric adenopathy. Aorta and inferior vena cava are normal in caliber. Bones: No acute fracture or suspicious osseous lesion is evident. Mild to moderate degenerative changes of the lumbar spine are noted. PELVIS: Genitourinary: Moderate thickening of the urinary bladder wall is similar to the prior study. There is continued marked enlargement of the prostate gland, measuring 5.3 x 5.4 cm. Miscellaneous: There is a small fat containing right inguinal hernia. No free fluid or loculated fluid collection is appreciated. Bones: No suspicious bony lesions. No acute pelvic fractures are evident. IMPRESSION: 1. Mild inflammation involving a short segment of the descending colon at the site of the previously noted diverticulitis on 04/04/19 may represent residual or recurrent diverticulitis. The possibility of a superimposed colonic mass cannot be excluded. Colonoscopy is recommended when clinically appropriate. 2. Unchanged superior left renal mass is highly suggestive of a renal cell carcinoma. 3. No evidence of metastatic disease. 4. Nonobstructing left renal stone. 5. Thickening of the urinary bladder wall may be related to chronic bladder outlet obstruction given the enlarged prostate. Please correlate clinically to exclude superimposed cystitis. 6. Small fat containing right inguinal hernia. 7. Probable hepatic steatosis. Note: The preliminary [facility] report and the final report are concordant. Dictated by: Samir Fajardo M.D. on 06/14/2019 at 7:02 Approved by: Samir Fajardo M.D. on 06/14/2019 at 7:14
[2019-06-13] MEDS: SODIUM CHLORIDE 0.9% 1,000 ML 1000 ML IV (23:58)
[2019-06-14 00:06] VITALS: BP 159/67; PULSE 59; RESP 19; O2SAT 100
--- NOTE | 2019-06-14 00:07 | PC.NURSE ---
pt provided a warm blanket. Denies further needs.
[2019-06-14] MEDS: HYDROCODONE/ACET 5/325 PREPACK 1 BOTTLE MISC (00:28)
[2019-06-14] MEDS: AMOXICILLIN/CLAV 875/125 MG 1 TAB PO (00:28)
--- NOTE | 2019-06-14 00:35 | PC.NURSE ---
discussed codine allergy with patient and the use of hydrocone, pt states he has taken hydrocodene before and codine causes constipation. Pt given prepack of hydrocodene and stated he will not take it at this time but will keep it incase his pain prevents him from sleeping. Pt states he will use a stool softner and drink extra water if he uses hydrocodene
[2019-06-14 00:50] VITALS: BP 159/89; PULSE 57; RESP 19; O2SAT 99
== END 2019-06-14 00:54 | disposition home or self-care (01) ==
PROVIDERS: Emergency Provider Emergency Medicine; PCP Family Medicine
DX: K57.92 Diverticulitis of intestine, part unspecified, without perforation or abscess without bleeding (principal); R10.9 Unspecified abdominal pain
CPT/HCPCS: 36591; 74177; 80053; 83690; 85025; 85610; 85730; 93005; 96360; 99282; 99285; Q9967

== ENCOUNTER → 2019-12-08 09:52 | Outpatient (CLI) | payer OTHER, SELFPAY ==
[2018-03-11 05:37] VITALS: BMI 23.8
--- NOTE | 2019-12-08 | DI.US.S_ITS ---
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 COMPARISON: [facility], CT, CT ABDOMEN PELVIS W CON, 06/13/2019, 23:25. [facility], US, US RENAL COMPLETE, 06/02/2019, 11:05. [facility], CT, CT ABDOMEN PELVIS W CON, 04/04/2019, 11:59. FINDINGS: Kidneys: Kidneys are normal in size. Right kidney measures 11.0 cm long; left kidney measures 10.9 cm long. Right renal cortical thickness is 1.6 cm; left renal cortical thickness is 1.4 cm. Renal cortical echotexture is normal. No hydronephrosis or shadowing nephrolithiasis. A solid superior left renal lesion is identified that measures 2.4 x 2.6 x 2.0 cm and correlates with the abnormality noted on the previous CT from 06/13/19. Internal blood flow is demonstrated to this lesion. Multiple bilateral simple renal cysts are evident with the largest cyst located on the right measuring up to 5.8 cm and the largest cyst on the left measuring up to 3.1 cm. Bladder: The urinary bladder is decompressed and subsequently not adequately evaluated. No significant bladder wall thickening is appreciated. No intraluminal defects or calculi are evident. The prostate is enlarged and measures up to 5.7 cm in diameter. Miscellaneous: No free pelvic fluid. Incidental note is made of increased echogenicity of the liver when compared to the right kidney. Please note that the entire liver is not imaged. IMPRESSION: 1. Solid superior left renal lesion is similar to the most recent examination from May 2019 and remains highly suspicious for a primary renal cell carcinoma. 2. No hydronephrosis or shadowing nephrolithiasis. 3. Multiple simple renal cysts. 4. Probable hepatic steatosis. Dictated by: Samir Fajardo M.D. on 12/08/2019 at 12:29 Approved by: Samir Fajardo M.D. on 12/08/2019 at 12:33
== END ==
PROVIDERS: PCP Family Medicine; Referring Provider Specialist; Visit Provider Specialist
DX: D41.02 Neoplasm of uncertain behavior of left kidney (principal); N28.1 Cyst of kidney, acquired
CPT/HCPCS: 76770

== ENCOUNTER → 2020-01-20 13:07 | Outpatient (CLI) | payer OTHER, SELFPAY ==
[2018-03-11 05:37] VITALS: BMI 23.8
--- NOTE | 2020-01-20 13:08 | DI.RAD.S_ITS ---
PROCEDURE: XR LUMBAR SPINE 2-3V INDICATIONS: Left hip pain TECHNIQUE: 3 views of the lumbar spine were acquired. COMPARISON: [facility], CT, CT ABDOMEN PELVIS W CON, 06/13/2019, 23:25. FINDINGS: Bones: There are 5 lumbar-type vertebral bodies. The lowest intervertebral disk space is designated as L5-S1. The vertebral body heights are well-maintained without evidence to suggest an acute compression fracture. The bone mineralization is within normal limits. Straightening of the normal lumbar lordosis is evident without significant spondylolisthesis. Moderate multilevel degenerative changes of the lumbar spine are primarily evident involving the mid to lower lumbar facet joints. Scattered anterior disc osteophyte complexes are seen within the upper lumbar region. Soft tissues: Clips within the right upper quadrant suggest previous cholecystectomy. There is aortic atherosclerosis. Otherwise, the soft tissues of the imaged abdomen and pelvis are within normal limits. IMPRESSION: Moderate degenerative changes of the lumbar spine are more prominent involving the lower lumbar facet joints. Dictated by: Samir Fajardo M.D. on 01/20/2020 at 13:38 Approved by: Samir Fajardo M.D. on 01/20/2020 at 13:39
--- NOTE | 2020-01-20 13:08 | DI.RAD.S_ITS ---
PROCEDURE: XR HIP W PEL IF DONE LT 2V INDICATIONS: Left hip pain TECHNIQUE: 2 views of the hip were acquired. COMPARISON: [facility], CR, XR PELVIS WITH LATERAL HIP RIGHT, 09/29/2019, 10:18. [facility], CT, CT ABDOMEN PELVIS W CON, 06/13/2019, 23:25. FINDINGS: Bones: No displaced fractures or dislocations. No suspicious bony lesions. The visualized pelvic ring appears intact. [id number] degenerative changes of the left hip are similar to the previous exam. There mild degenerative changes of the right hip and sacroiliac joints. Soft tissues: No suspicious soft tissue calcifications or masses. IMPRESSION: Mild to moderate degenerative changes of the left hip. Dictated by: Samir Fajardo M.D. on 01/20/2020 at 13:37 Approved by: Samir Fajardo M.D. on 01/20/2020 at 13:38
== END ==
PROVIDERS: PCP Family Medicine; Referring Provider Family Medicine; Visit Provider Family Medicine
DX: M25.552 Pain in left hip (principal); M47.816 Spondylosis without myelopathy or radiculopathy, lumbar region; I70.0 Atherosclerosis of aorta
CPT/HCPCS: 72100; 73502

== ENCOUNTER → 2020-03-23 13:32 | Outpatient (CLI) | payer OTHER, SELFPAY ==
[2018-03-11 05:37] VITALS: BMI 23.8
--- NOTE | 2020-03-23 13:33 | DI.MRI.S_ITS ---
PROCEDURE: MR LUMBAR SPINE WO CON INDICATIONS: Left hip pain TECHNIQUE: Noncontrast sagittal T1 spin echo and T2 fast echo, sagittal STIR, axial T1 and T2 fast spin echo through the lumbar spine. In cases with scoliosis, additional coronal T2 fast spin echo may be performed. COMPARISON: None. FINDINGS: Image quality: Excellent. Alignment and Curvature: There is trace L2-L3 retrolisthesis. Bone Marrow: Mild reactive endplate changes noted just to the L1-L2 and L5-S1 discs. Small benign, intraosseous hemangioma noted in the L3 vertebral body. No acute vertebral body compression fractures. Spinal Cord: Conus medullaris terminates at the L1 level. Visualized cord demonstrates normal signal and size. Paraspinous Soft Tissues: No paravertebral masses. L1-L2: Loss of disc signal and height. Mild, diffuse disc bulge. Mild narrowing of the central canal. No neural foraminal narrowing. No neural compression. L2-L3: Loss of disc signal. Moderate, diffuse disc bulge with small central disc protrusion. Mild to moderate narrowing of the central canal. Mild right neural foraminal narrowing. No neural compression. L3-L4: Loss of disc signal. Minimal, diffuse disc bulge. No central stenosis. No neural foraminal narrowing. No neural compression. L4-L5: Loss of the signal. Mild diffuse disc bulge. Mild, diffuse disc bulge. Mild narrowing of the central canal. Mild bilateral neural foraminal narrowing. No neural compression. Fissures noted in the anterior and posterior annulus. L5-S1: Loss of the signal. Mild, diffuse disc bulge. Mild bilateral facet hypertrophy. No central stenosis. Mild right and moderate to severe left neural foraminal narrowing slight compression of the exiting left L5 nerve root. IMPRESSION: 1. Multilevel degenerative disease. 2. No significant central canal narrowing. 3. Moderate to severe left L5-S1 with neural foraminal narrowing slight compression of the exiting left L5 nerve root. Please correlate with clinical data. 4. L4-L5 disc annulus fissures. Dictated by: Ana Mendez MD, PhD on 03/23/2020 at 15:06 Approved by: Ana Mendez MD, PhD on 03/23/2020 at 15:16
== END ==
PROVIDERS: PCP Family Medicine; Referring Provider Family Medicine; Visit Provider Family Medicine
DX: M25.552 Pain in left hip (principal); M51.36 Other intervertebral disc degeneration, lumbar region; M51.37 Other intervertebral disc degeneration, lumbosacral region; M48.061 Spinal stenosis, lumbar region without neurogenic claudication; M48.07 Spinal stenosis, lumbosacral region
CPT/HCPCS: 72148

== ENCOUNTER → 2020-04-14 13:04 | Outpatient (CLI) | payer OTHER, SELFPAY ==
[2018-03-11 05:37] VITALS: BMI 23.8
--- NOTE | 2020-04-14 | DI.RAD.S_ITS ---
PROCEDURE: XR KNEE RT 3V INDICATIONS: WEIGHBEARING KNEES TECHNIQUE: 3 views of the knee were acquired. COMPARISON: None. FINDINGS: Bones: No fractures or dislocations. No suspicious bony lesions. Severe narrowing of the medial joint space. Scattered degenerative subchondral sclerosis and spurring. Soft tissues: No joint effusion. No suspicious soft tissue calcifications. Scattered vascular calcifications. IMPRESSION: Severe right knee joint degeneration Dictated by: Octaviano Hinkle M.D. on 04/14/2020 at 15:32 Approved by: Octaviano Hinkle M.D. on 04/14/2020 at 15:33
--- NOTE | 2020-04-14 13:05 | DI.RAD.S_ITS ---
PROCEDURE: XR KNEE LT 3V INDICATIONS: Knee pain TECHNIQUE: 3 views of the knee were acquired. COMPARISON: None. FINDINGS: Bones: No fractures or dislocations. No suspicious bony lesions. Severe narrowing of the medial joint space. Scattered degenerative subchondral sclerosis and spurring. Prominent spurring at the superior and inferior patella. Soft tissues: No joint effusion. No suspicious soft tissue calcifications. IMPRESSION: Severe left knee joint degeneration Dictated by: Octaviano Hinkle M.D. on 04/14/2020 at 15:31 Approved by: Octaviano Hinkle M.D. on 04/14/2020 at 15:32
== END ==
PROVIDERS: PCP Family Medicine; Referring Provider Family Medicine; Visit Provider Physical Medicine & Rehabilitation
DX: M25.561 Pain in right knee (principal); M25.562 Pain in left knee; M17.0 Bilateral primary osteoarthritis of knee
CPT/HCPCS: 73562

== ENCOUNTER → 2020-05-03 08:30 | Outpatient (CLI) | payer OTHER, SELFPAY ==
[2018-03-11 05:37] VITALS: BMI 23.8
[2020-05-04 09:35] LABS: COVID19 Sendout Not Detected (Not Detect)
== END ==
PROVIDERS: PCP Family Medicine; Visit Provider Student in an Organized Health Care Education/Training Program
DX: Z01.812 Encounter for preprocedural laboratory examination (principal)
CPT/HCPCS: 87635

== ENCOUNTER 2020-05-06 13:52 | Outpatient (CLI) | payer OTHER, SELFPAY ==
[2018-03-11 05:37] VITALS: BMI 23.8
[2020-05-06] VITALS (8 sets, daily range): BP systolic 127–165; BP diastolic 77–93; PULSE 57–61; RESP 15–16; TEMP 36.1; O2SAT 97–100
--- NOTE | 2020-05-06 13:53 | DI.RAD.S_ITS ---
PROCEDURE: PAIN L/S TRANSFORAMINAL INJECT INDICATIONS: SPONDYLOSIS COMPARISON: None. FINDINGS: Fluoroscopic spot filming was performed to verify placement of spinal needles at the left L5-S1 neural foramen level(s), as labeled on the films. Appropriate location(s) of the needle tip(s) was confirmed by injection of iodinated contrast. IMPRESSION: Spinal needle at the level of the left L5-S1 neural foramen. Dictated by: Ana Mendez MD, PhD on 05/07/2020 at 14:07 Approved by: Ana Mendez MD, PhD on 05/07/2020 at 14:07
[2020-05-06] MEDS: MIDAZOLAM 5 MG/5 ML VIAL IV (14:40)
[2020-05-06] MEDS: DEXAMETHASONE 10 MG/ML VIAL 20 MG INJ (14:43)
[2020-05-06] MEDS: BETAMETHASONE 30 MG/5 ML MDV 6 MG INJ (14:43)
[2020-05-06] MEDS: IOPAMIDOL 15 ML VIAL 3 ML INJ (14:43)
--- NOTE | 2020-05-06 15:08 | P.PCN_ITS ---
Date/Time/Diagnoses Date of procedure: 05/06/20 Time of procedure: 15:08 Pre-procedure diagnosis: 1. FORAMINAL STENOSIS WITH LE SYMPTOMS Post-procedure diagnosis: same Procedure Notes Procedure: 1. FLUOROSCOPICALLY GUIDED CONTRAST CONTROLLED TRANSFORAMINAL EPIDURAL STEROID INJECTION - Left L5/S1 Indications: Mark is referred by for treatment of Foraminal Stenosis with Left LE Symptoms Physician: Jamir Bowen Total Fluoroscopy time (seconds): 8 Total sedation minutes: 24 Complications: none Procedure in detail & Post-procedure care: FINDINGS Foraminal Nerve Root Compression secondary to disc disease and facet hypertrophy DESCRIPTION OF PROCEDURE Following review of allergy and review of potential side effects and complications, including, but not necessarily limited to, infection, allergic reaction, local tissue breakdown, stroke, temporary or permanent nerve injury, paralysis, and possible , the patient indicated that the patient understood and agreed to proceed. An informed consent document was signed by the patient, witnessed by a nurse, and placed in the patient's chart. Additionally, other treatment options including medications, modalities, and physical therapy were reviewed with the patient. After review of previous anaesthesic history and IV conscious sedation the patient was deemed safe to proceed with today?s procedure with IV conscious sedation as ASA class II designation. Safety time-out was performed to confirm patient ID, procedure to be performed and site of procedure. IV sedation was accomplished with a combination of 2mg of Versed was administered by the RN after DO order, titrated to patient comfort during the course of the procedure while the patient remained responsive to all verbal commands In the prone position following sterile prep and drape of the lumbar region, the Left L5/S1 posterior neuroforamen was identified fluoroscopically. The skin was anesthetized via a 25-gauge 1.5-inch needle with 1% lidocaine solution. At this point, a 25-gauge 3.5-inch spinal needle was atraumatically introduced and advanced under fluoroscopic guidance through the posterior Left L5/S1 neuroforamen to approximately the anterior aspect of the canal. Depth was confirmed on lateral view. Following negative aspiration, injection of approximately 1.5 cc of Isovue 200 under live fluoroscopy in the AP view confirmed excellent flow along the nerve root, into the epidural space without vascular or intrathecal uptake observed Radiological data, including multiple fluoroscopic views of the lumbosacral spine, reveal a spinal needle at the Left L5/S1 posterior neuroforamen. Subsequent views show flow of contrast material flowing superiorly and inferiorly along the nerve root confirming epidural flow. Subsequently, a test dose of 1.5 cc of 1% lidocaine solution was administered and patient was observed for two minutes for signs or symptoms of complications, including abdominal pain, shortness of breath, bilateral upper or lower extremity weakness, nausea and vomiting, prior to steroid injection. At this point, a total of 3cc or 20mg of dexamethasone and 6mg of betamethasone was injected without incident. The procedure tolerated the procedure well without signs or symptoms of complications prior to transfer to the recovery area continued monitoring without incident. The patient was then transferred to the recovery area where they were observed for an appropriate time after the injection. The patient reported a VAS score of 7 prior to the procedure and a post-procedure VAS of 0. POST OP INSTRUCTIONS The patient was provided a Pain Log to continue to record their response to the target-specific procedure prior to follow-up visit with their referring physicia n. Additionally, specific post-injection care instructions and a contact number to our office were provided if concerns arise regarding possible complications associated with the procedure are suspected.
--- NOTE | 2020-05-06 15:25 | PC.NURSE ---
1501: pt arrived to pre proc room via wc, 2PA to transfer from wc to chair, resumed monitoring per protocol
--- NOTE | 2020-05-06 15:47 | PC.NURSE ---
Tolerated procedure without incident. VSS upon transfer to post procedure room to [facility]. Versed and Fentanyl administered by Reyna Valentin. All other meds given by Dr. Bowen.
== END 2020-05-06 16:19 | disposition home or self-care (01) ==
LOC: RAD 13:53
PROVIDERS: PCP Family Medicine; Referring Provider Family Medicine; Visit Provider Physical Medicine & Rehabilitation
DX: M48.07 Spinal stenosis, lumbosacral region (principal); M51.17 Intervertebral disc disorders with radiculopathy, lumbosacral region
CPT/HCPCS: 64483; 99152; J0702; J1100; J2250; J3010

== ENCOUNTER 2020-09-02 10:26 | Emergency (ER) | payer OTHER, SELFPAY ==
[2018-03-11 05:37] VITALS: BMI 23.8
[2020-09-02 10:34] VITALS: BP 135/77; PULSE 79; RESP 18; TEMP 36.5; O2SAT 97; BMI 24.4
--- NOTE | 2020-09-02 10:40 | DI.RAD.S_ITS ---
PROCEDURE: XR WRIST RT MIN 3V INDICATIONS: glf,swelling of wrist TECHNIQUE: 4 views of the wrist were acquired. COMPARISON: [facility], , WRIST MINIMUM 3 VIEWS LEFT, 11/18/2016, 10:31. FINDINGS: Bones: There is diffuse osteopenia. Subtle irregularity involving dorsal aspect of triquetrum is seen concerning for minimally displaced posterior triquetral fracture. No other fracture or dislocation is seen. Osteoarthritic changes are noted throughout wrist joints. No gross bony erosive changes are seen. No suspicious bony lesions. Scaphoid view: Scaphoid is grossly intact. Soft tissues: No suspicious soft tissue calcifications. Soft tissue swelling around wrist joint is seen. IMPRESSION: Finding is concerning for subtle minimally displaced fracture involving posterior aspect of triquetrum. No other fracture or dislocation is seen. Diffuse osteopenia. Osteoarthritic changes throughout wrist joints. Wrist soft tissue swelling. Dictated by: Massimo Rosenberg M.D. on 09/02/2020 at 10:48 Approved by: Massimo Rosenberg M.D. on 09/02/2020 at 10:56
--- NOTE | 2020-09-02 11:20 | ED_ITS ---
HPI - Fall General Chief Complaint: Fall Stated Complaint: fell on right hand couple of days ago Time Seen by Provider: 09/02/20 11:04 Source: patient Mode of arrival: Ambulatory Limitations: no limitations History of Present Illness HPI Narrative: This is an 85-year-old male who comes to the emergency department with complaint of right wrist pain. Patient states on Sunday he was walking his trash can which rolls down his driveway which is on incline. He states the trash can started to get away from him he continued to hang onto it and when it reached the street it fell over taking him with it. He fell scraping his, on both his upper extremities and lower extremities he has several abrasions and bruises. He fell on his right wrist which has become increasingly painful and swollen and had developed more bruising. He also has a little bit of rib pain on the left side. Patient denies any loss of consciousness. States he is not on any blood thinners. Denies any headache, denies any vision changes. Denies any shortness of breath. No nausea or vomiting no other GI or urinary symptoms. Denies any numbness or tingling in his extremities he is accompanied by his . Related Data Home Medications Medication Instructions Recorded Confirmed CA PANTOTHENATE/FOLIC ACID/VIT 1 liq PO QDAY #0 11/18/11 08/04/20 (MULTIVITAMIN) VITAMIN D (Vitamin D3) 1,000 unit PO QDAY #0 11/18/11 08/04/20 aspirin 81 mg PO DAILY #0 06/03/12 08/04/20 Previous Rx's Medication Instructions Recorded simvastatin 20 mg tablet 20 mg PO HS #90 tab 08/07/19 prednisone 5 mg tablet 5 mg PO QDAY #90 tab 11/18/19 allopurinol 100 mg tablet 100 mg PO DAILY #90 tab 11/25/19 citalopram 40 mg tablet 40 mg PO DAILY #90 tab 02/23/20 gabapentin 300 mg capsule 300 mg PO .COMPLEX #90 cap 04/05/20 celecoxib 200 mg capsule 200 mg PO DAILY #30 cap 05/10/20 cyclobenzaprine 10 mg tablet 10 mg PO BID PRN #60 tab 05/11/20 hydrocodone 5 mg-acetaminophen 325 1 tab PO BEDTIME PRN #20 tab 05/13/20 mg tablet atenolol 50 mg tablet 100 mg PO DAILY #180 tab 07/05/20 finasteride 5 mg tablet 5 mg PO DAILY #90 tab 09/02/20 tramadol [Ultram] 50 mg PO Q6H PRN #10 tab 09/02/20 Allergies Allergy/AdvReac Type Severity Reaction Status Date / Time carbamazepine [CARBAMAZEPINE] Allergy Mild HIVES Verified 08/04/20 13:22 codeine [CODEINE] Allergy Mild CONSTIPATIO Verified 08/04/20 13:22 N tamsulosin [TAMSULOSIN] Allergy Mild REAL BAD Verified 08/04/20 13:22 COUGH morphine [MORPHINE] AdvReac Unknown severe Verified 08/04/20 13:22 nausea/vomiting Review of Systems Review of Systems ROS Unobtainable: All systems reviewed & are unremarkable except as noted in HPI and below Patient History Medical History Bilateral renal cysts (Resolved) Cataract (Resolved) Coronary artery disease (Chronic) Degenerative joint disease (DJD) of hip (Acute) Degenerative joint disease of knee (Acute) Diverticular disease of colon (Chronic) Gait instability (Acute) Gout (Chronic) Greater trochanteric bursitis of left hip (Acute) Hemorrhoids (Chronic) Herniated nucleus pulposus, L5-S1, left (Acute) History of small bowel obstruction (Chronic) Hyperlipidemia (Chronic) Hypertension (Chronic) Iliotibial band syndrome, left leg (Acute) Myocardial infarction (Resolved) 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) Osteoarthritis of right hand (Chronic 12/19/13) Pelvic somatic dysfunction (Acute) Piriformis syndrome of left side (Acute) Polymyalgia rheumatica (Chronic) Sacral region somatic dysfunction (Acute) Small bowel obstruction (Chronic) Somatic dysfunction of lower extremity (Acute) 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 HEAD: No evidence of trauma except as below, no raccoon/Mariee sign. NECK: Nontender, painless range of motion, trachea midline Negative Nexus criteria, there is no mid line tenderness, distracting injury, altered mental status, neuro deficit, recent EtOH. EYES: PERRLA, EOMI ENT: Patient has some abrasion of the bridge of the nose and right cheek, trachea is midline, TM's are normal no hemotypanum, Nares are clear, no septal hematoma, no dental or oral injury, airway is normal and with normal occlusion, No bony tenderness RESP: Chest has point tenderness on the left approximately rib 6 or 7 on the lateral ankle and has symmetric movement, no ecchymosis, breath sounds are normal no crackles, wheezes or rales, no subcutaneous emphysema CVS: Heart sounds are normal, no murmur noted, No JVD. ABG/GI: Nontender, soft, normal bowel sounds, no distention, no organomegaly, pelvic rock is negative NEURO: Oriented AOx3, neuro is grossly intact, sensation and motor is normal all 4 extremities moving, cranial nerves II through XII are intact, GCS is 15 PSYCH: Normal mood and affect SKIN: Patient has ecchymosis on the left forearm, he also has abrasions on bilateral knees in greatest being his left patella with approximately 2.5 cm abrasion, warm and dry, no crepitus and without decubitus BACK: No CVA tenderness, no vertebral tenderness, no step-off's, no crepitus EXT: Atraumatic, hips are nontender, no pedal edema, normal color and temperature, normal range of motion of extremities with normal tendon exam, 2+ pulses in all four extremities Initial Vital Signs Initial Vital Signs: Vital Signs Temperature 97.7 F 09/02/20 10:34 Pulse Rate 79 09/02/20 10:34 Respiratory Rate 18 09/02/20 10:34 Blood Pressure 135/77 09/02/20 10:34 Pulse Oximetry 97 09/02/20 10:34 Scores GCS [place] coma scale eye opening: Spontaneous [place]helia coma scale verbal response: Orientated [place] coma scale motor response: Obey commands [place] coma scale total score: 15 Course Orders Ordered: ED Orders 09/02/20 10:40 XR wrist RT min 3V Stat 09/02/20 11:38 XR chest 1V Stat Discontinued Medications Acetaminophen (Tylenol) 975 mg PO NOW ONE Stop: 09/02/20 11:39 Last Admin: 09/02/20 11:53 Dose: 975 mg Documented by: [email or web address] Consultations Consultation #1: Spoke with Dr. Wakefield, we did review films. He would recommend volar splint but patient can have his fingers free. Time: 12:25 Vital Signs Vital signs: Vital Signs - 8 hr 09/02/20 10:34 09/02/20 12:49 09/02/20 13:01 Temperature 97.7 F Pulse Rate 79 67 67 Respiratory Rate 18 18 14 Blood Pressure 135/77 154/71 H 148/73 H Pulse Oximetry 97 100 97 MDM - Fall Imaging Data Extremity x-ray #1: Radiologist's Impression: [address] [address] XRay Report Signed Patient: Mark Stevens JMR#: [id number] : 5Acct:[id number] Age/Sex: 85 / MDate of Service: 09/02/20 Loc: ED Accession Number: [id number] Procedure: XR wrist RT min 3V Ordering Provider: Rach Sorensen D.O. PROCEDURE: XR WRIST RT MIN 3V INDICATIONS: glf,swelling of wrist TECHNIQUE: 4 views of the wrist were acquired. COMPARISON: [facility], WRIST MINIMUM 3 VIEWS LEFT, 11/18/2016, 10:31. FINDINGS: Bones: There is diffuse osteopenia. Subtle irregularity involving dorsal aspect of triquetrum is seen concerning for minimally displaced posterior triquetral fracture. No other fracture or dislocation is seen. Osteoarthritic changes are noted throughout wrist joints. No gross bony erosive changes are seen. No suspicious bony lesions. Scaphoid view: Scaphoid is grossly intact. Soft tissues: No suspicious soft tissue calcifications. Soft tissue swelling around wrist joint is seen. IMPRESSION: Finding is concerning for subtle minimally displaced fracture involving posterior aspect of triquetrum. No other fracture or dislocation is seen. Diffuse osteopenia. Osteoarthritic changes throughout wrist joints. Wrist soft tissue swelling. Dictated by: Massimo Rosenberg M.D. on 09/02/2020 at 10:48 Approved by: Massimo Rosenberg M.D. on 09/02/2020 at 10:56 Chest x-ray: Radiologist's Impression: Mark Stevens 85 M [address] [address] XRay Report Signed Patient: Mark Stevens JMR#: [id number] : 5Acct:[id number] Age/Sex: 85 / MDate of Service: 09/02/20 Loc: ED Accession Number: [id number] Procedure: XR chest 1V Ordering Provider: Rach Sorensen D.O. PROCEDURE: XR CHEST 1V INDICATIONS: left rib pain, likely fracture, fall TECHNIQUE: One view of the chest was acquired. COMPARISON: [facility], , CHEST 2 VIEW, 06/29/2016, 22:27. FINDINGS: Surgical changes and devices: Cholecystectomy clips. Lungs and pleura: Lungs are clear. No pleural effusions or pneumothorax. Mediastinum: Mediastinal contours appear normal. Heart size is normal. Bones and chest wall: No suspicious bony lesions. Overlying soft tissues appear unremarkable. IMPRESSION: No acute cardiopulmonary disease process. No displaced rib fracture. Dictated by: Ana Mendez MD, PhD on 09/02/2020 at 12:00 Approved by: Ana Mendez MD, PhD on 09/02/2020 at 12:01 Discharge Plan Departure Patient Disposition: Home Clinical Impression: Fracture of triquetral bone of right wrist, Abrasion, multiple sites, Fall Discharge Date/Time: 09/02/20 13:02 Instructions: DI for Wrist Fracture Activity Restrictions/Additional Instructions: Follow-up with Orthopedic surgery in the next 5-7 days for recheck. Call for an appointment. You may take Tylenol up to a 1000 mg every 8 hours as needed for pain, you may take ibuprofen instead of or with this up to 600 mg every 6 hours. You may take Ultram 1-2 tablets every 6 hours as needed for breakthrough pain, if you take this medication it is constipating and I would take a Colace 100 mg each time you take a narcotic tablet as well as make sure you are drinking plenty of fluids. Prescriptin to [facility] Splint Care: Keep splint clean and dry. Elevated affected body part to decrease swelling. OK to use ice pack on the affected body part. Use for 15-20 minutes each time, for 5-6x per day. If you develop worsening pain, numbness, tingling, discoloration of the affected body part, loosen the splint by loosening the EN wrap, and either see your doctor for an urgent re-assessment, or return to the Emergency Department. Return to the Emergency Department for severe headaches, altered mental status, difficulty with vision, new neck pain, back pain, weakness, numbness or difficulty with extremities, persistent vomiting or other new or concerning symptoms. Prescriptions: New tramadol [Ultram] 50 mg tablet 50 mg PO Q6H PRN (Reason: pain) Qty: 10 RF: 0 No Action CA PANTOTHENATE/FOLIC ACID/VIT (MULTIVITAMIN) 1 liq PO QDAY Qty: 0 RF: 0 VITAMIN D (Vitamin D3) 1,000 unit PO QDAY Qty: 0 RF: 0 aspirin 81 mg Tablet,Chewable 81 mg PO DAILY Qty: 0 RF: 0 simvastatin 20 mg tablet 20 mg PO HS Qty: 90 RF: 3 prednisone 5 mg tablet 5 mg PO QDAY Qty: 90 RF: 3 allopurinol 100 mg tablet 100 mg PO DAILY Qty: 90 RF: 3 citalopram 40 mg tablet 40 mg PO DAILY Qty: 90 RF: 3 celecoxib [Celebrex] 200 mg capsule 200 mg PO DAILY Qty: 30 RF: 2 cyclobenzaprine 10 mg tablet 10 mg PO BID PRN (Reason: muscle spasm) Qty: 60 RF: 1 hydrocodone-acetaminophen 5-325 mg tablet 1 tab PO BEDTIME PRN (Reason: pain) Qty: 20 RF: 0 atenolol 50 mg tablet 100 mg PO DAILY Qty: 180 RF: 3 finasteride 5 mg tablet 5 mg PO DAILY Qty: 90 RF: 3 gabapentin 300 mg capsule 300 mg PO .COMPLEX Qty: 90 RF: 2 Referrals: Samson Perez MD [Primary Care Provider] - Eleazar Wakefield MD [Physician] -
--- NOTE | 2020-09-02 11:38 | DI.RAD.S_ITS ---
PROCEDURE: XR CHEST 1V INDICATIONS: left rib pain, likely fracture, fall TECHNIQUE: One view of the chest was acquired. COMPARISON: [facility], , CHEST 2 VIEW, 06/29/2016, 22:27. FINDINGS: Surgical changes and devices: Cholecystectomy clips. Lungs and pleura: Lungs are clear. No pleural effusions or pneumothorax. Mediastinum: Mediastinal contours appear normal. Heart size is normal. Bones and chest wall: No suspicious bony lesions. Overlying soft tissues appear unremarkable. IMPRESSION: No acute cardiopulmonary disease process. No displaced rib fracture. Dictated by: Ana Mendez MD, PhD on 09/02/2020 at 12:00 Approved by: Ana Mendez MD, PhD on 09/02/2020 at 12:01
[2020-09-02] MEDS: ACETAMINOPHEN 325 MG TABLET 975 MG PO (11:53)
[2020-09-02 12:49] VITALS: BP 154/71; PULSE 67; RESP 18; O2SAT 100
[2020-09-02 13:01] VITALS: BP 148/73; PULSE 67; RESP 14; O2SAT 97
== END 2020-09-02 13:02 | disposition home or self-care (01) ==
PROVIDERS: Emergency Provider Emergency Medicine; PCP Family Medicine
DX: S62.101A Fracture of unspecified carpal bone, right wrist, initial encounter for closed fracture (principal); S80.812A Abrasion, left lower leg, initial encounter; S80.811A Abrasion, right lower leg, initial encounter; S40.812A Abrasion of left upper arm, initial encounter; S40.811A Abrasion of right upper arm, initial encounter; R07.81 Pleurodynia; W19.XXXA Unspecified fall, initial encounter
CPT/HCPCS: 29125; 71045; 73110; 99283; 99284

== ENCOUNTER → 2020-09-22 11:59 | Outpatient (CLI) | payer OTHER, SELFPAY ==
[2018-03-11 05:37] VITALS: BMI 23.8
--- NOTE | 2020-09-22 12:00 | DI.US.S_ITS ---
PROCEDURE: US RENAL COMPLETE INDICATIONS: FOLLOW-UP LEFT KIDNEY MASS TECHNIQUE: Real-time scanning was performed of the kidneys and bladder, with image documentation. COMPARISON: [facility], MR, MR ABDOMEN WO/W CON, 05/01/2018, 10:37. [facility], CT, CT ABDOMEN PELVIS W CON, 03/10/2018, 23:43. [facility], CT, CT ABDOMEN PELVIS W CON, 06/13/2019, 23:25. [facility], US, US RETROPERITONEAL COMP, 12/08/2019, 10:50. [facility], MR, MR LUMBAR SPINE WO CON, 03/23/2020, 14:22. [facility], US, US RENAL COMPLETE, 06/02/2019, 11:05. [facility], RENAL COMPLETE, 11/18/2018, 13:06. FINDINGS: Kidneys: Kidneys are normal in size. Right kidney measures 11.4 cm long; left kidney measures 11.9 cm long. Right renal cortical thickness is 1.4 cm; left renal cortical thickness is 1.5 cm. Renal cortical echotexture is normal. No hydronephrosis or nephrolithiasis. The right kidney contains 2 cysts, stable in appearance over time, measuring 6.0 x 4.1 x 5.0 cm at the anterolateral cortex and 2.0 x 1.5 x 1.8 cm at the superior posterior right renal cortex. The left kidney demonstrates a cyst measuring 2.7 x 3.4 x 3.4 cm inferiorly, and there is a persistent solid mass involving the superior left renal cortex currently measuring 2.6 x 2.0 x 2.5 cm. This structure had measured 3.1 x 2.8 x 3.1 cm previously. The measurement is depended on exact angle of imaging during measurement, and the structure does not appear to have likely significantly changed over time. Bladder: Bladder is not distended by urine and therefore assessment of the bladder is very limited at time of scanning. Miscellaneous: No free pelvic fluid. 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 The measurements currently even would suggest a slight diminished size, but this is likely an artifact of differences in scan angulation. Yearly follow-up by ultrasound is recommended. Dictated by: Ronni Judge M.D. on 09/22/2020 at 13:05 Approved by: Ronni Judge M.D. on 09/22/2020 at 13:26
== END ==
PROVIDERS: PCP Family Medicine; Referring Provider Specialist; Visit Provider Specialist
DX: N28.89 Other specified disorders of kidney and ureter (principal)
CPT/HCPCS: 76770

== ENCOUNTER 2020-10-13 15:16 | Emergency (ER) | payer OTHER, SELFPAY ==
[2018-03-11 05:37] VITALS: BMI 23.8
[2020-10-13] VITALS (9 sets, daily range): BP systolic 141–188; BP diastolic 68–84; PULSE 58–62; RESP 16–18; TEMP 36.9; O2SAT 95–98
[2020-10-13 15:44] LABS: Add Manual Diff / Slide Review NO; Basophils Absolute Auto 0 /uL (0-100); Basophils Percent Auto 0.7 % (0-2); Eosinophils Absolute Auto 0 /uL (0-450); Eosinophils Percent Auto 0.4 % (2-4); Hematocrit 37.1 % (41-53); Hemoglobin 12.2 g/dL (13.5-17.5); Lymphocytes Absolute Auto 1700 /uL (1100-4500); Lymphocytes Percent Auto 26.1 % (25-40); Mean Corpuscular HGB Conc 32.9 % (30-36); Mean Corpuscular Hemoglobin 29.1 PG (26-34); Mean Corpuscular Volume 88.4 fL (80-100); Monocytes Absolute Auto 800 /uL (0-900); Monocytes Percent Auto 12.4 % (3-14); Neutrophils Absolute Auto 3900 /uL (1500-7000); Neutrophils Percent Auto 60.4 % (50-75); Platelet Count 299 X10^3/uL (150-400); Red Cell Distribution Width 14.5 % (11.6-14.8); White Blood Cell Count 6.4 X10^3/uL (4.5-11.0)
[2020-10-13 15:55] LABS: INR 1.1 (0.9-1.3)
[2020-10-13 15:58] LABS: Alanine Aminotransferase 17 IU/L (<50); Albumin 4.2 g/dL (3.5-5.0); Albumin Globulin Ratio 1.3 (1.0-2.8); Alkaline Phosphatase 156 U/L (38-126); Aspartate Aminotransferase 29 IU/L (17-59); BUN Creatinine Ratio 19.5 (6-22); Bilirubin Total 0.4 mg/dL (0.2-1.3); Blood Urea Nitrogen 16 mg/dL (9-20); Calcium 9.2 mg/dL (8.4-10.2); Carbon Dioxide 28 mmol/L (22-32); Chloride 100 mmol/L (98-107); Estimated Glomerular Filt Rate > 60.0 mL/min (>60); Globulin 3.3 g/dL (1.7-4.1); Glucose 115 mg/dL (80-110); HEMOLYSIS < 15 (0-50); PTT Partial Thromboplastin Tim 34 SECONDS (26.4-36.2); Potassium 4.5 mmol/L (3.4-5.1); Sodium 136 mmol/L (137-145); Total Protein 7.5 g/dL (6.3-8.2)
[2020-10-13 16:19] LABS: Lipase 60 U/L (23-300)
--- NOTE | 2020-10-13 16:23 | ED.ABDPAIN ---
HPI - Abdominal Pain General Chief Complaint: Abdominal Pain Stated Complaint: stomach pain Time Seen by Provider: 10/13/20 16:18 Source: patient Mode of arrival: Ambulatory Limitations: no limitations History of Present Illness HPI narrative: This is an 85-year-old male comes emergency department complaint of abdominal pain that occurred last night. He states it was quite severe sort of started epigastric to mid abdomen. He states that it did radiate towards his back at 1 point. He states it has since improved still present but not nearly as uncomfortable. He states was very tender to touch. He states he had 1 large diarrhea like bowel movement. No hematochezia, no melena. No nausea, no vomiting. Patient denies any fevers, chills, no cold cough or congestion. He denies any shortness of breath or chest pain or pressure. He states he has had several episodes of hiccups and today had 1 that was associated with over and that felt like ?Lava? and very acidic. Patient states that he does have a cardiac history. Related Data Home Medications Medication Instructions Recorded Confirmed CA PANTOTHENATE/FOLIC ACID/VIT 1 liq PO QDAY #0 11/18/11 08/04/20 (MULTIVITAMIN) VITAMIN D (Vitamin D3) 1,000 unit PO QDAY #0 11/18/11 08/04/20 aspirin 81 mg PO DAILY #0 06/03/12 08/04/20 Previous Rx's Medication Instructions Recorded simvastatin 20 mg tablet 20 mg PO HS #90 tab 08/07/19 prednisone 5 mg tablet 5 mg PO QDAY #90 tab 11/18/19 allopurinol 100 mg tablet 100 mg PO DAILY #90 tab 11/25/19 citalopram 40 mg tablet 40 mg PO DAILY #90 tab 02/23/20 gabapentin 300 mg capsule 300 mg PO .COMPLEX #90 cap 04/05/20 celecoxib 200 mg capsule 200 mg PO DAILY #30 cap 05/10/20 cyclobenzaprine 10 mg tablet 10 mg PO BID PRN #60 tab 05/11/20 hydrocodone 5 mg-acetaminophen 325 1 tab PO BEDTIME PRN #20 tab 05/13/20 mg tablet atenolol 50 mg tablet 100 mg PO DAILY #180 tab 07/05/20 finasteride 5 mg tablet 5 mg PO DAILY #90 tab 09/02/20 tramadol [Ultram] 50 mg PO Q6H PRN #10 tab 09/02/20 Allergies Allergy/AdvReac Type Severity Reaction Status Date / Time carbamazepine [CARBAMAZEPINE] Allergy Mild HIVES Verified 08/04/20 13:22 codeine [CODEINE] Allergy Mild CONSTIPATIO Verified 08/04/20 13:22 N tamsulosin [TAMSULOSIN] Allergy Mild REAL BAD Verified 08/04/20 13:22 COUGH morphine [MORPHINE] AdvReac Unknown severe Verified 08/04/20 13:22 nausea/vomiting Review of Systems Review of Systems ROS Unobtainable: All systems reviewed & are unremarkable except as noted in HPI and below Patient History Medical History (Updated 10/13/20 @ 18:20 by Rach Sorensen DO) Bilateral renal cysts Cataract Coronary artery disease 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 Gait instability Gout Greater trochanteric bursitis of left hip Hemorrhoids Herniated nucleus pulposus, L5-S1, left History of small bowel obstruction Hyperlipidemia Hypertension Iliotibial band syndrome, left leg Myocardial infarction 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) Pelvic somatic dysfunction Piriformis syndrome of left side Polymyalgia rheumatica Sacral region somatic dysfunction Small bowel obstruction Somatic dysfunction of lower extremity 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 HEENT: Head normocephalic, atraumatic, EOMI, pupils reactive, face symmetric, moist mucous membranes NECK: Supple, full range of motion CARDIOVASCULAR: Regular rate and rhythm without murmurs, rubs or gallops. RESPIRATORY: Breath sounds equal bilaterally, no wheezes rales or rhonchi. ABDOMEN: Soft, mild generalized tenderness. Normoactive bowel sounds all 4 quadrants. No guarding or rebound, rigidity, no mass : No CVA tenderness EXTREMITIES: Normal range of motion, no clubbing or edema. Neurovascularly intact NEUROLOGICAL: Cranial nerves II through XII grossly intact. Moving all extremities, patient has resting tremor in his extremities and head. SKIN: Warm, dry, no petechiae, no rashes or lesions. Initial Vital Signs Initial Vital Signs: Vital Signs Temperature 98.5 F 10/13/20 15:23 Pulse Rate 62 10/13/20 15:23 Respiratory Rate 18 10/13/20 15:23 Blood Pressure 156/68 H 10/13/20 15:23 Pulse Oximetry 96 10/13/20 15:23 Course Orders Ordered: ED Orders 10/13/20 15:23 EKG-12 Lead Stat 10/13/20 15:36 Complete Blood Count AUTO DIFF Stat Comprehensive Metabolic Panel Stat Lipase Stat Partial Thromboplastin Time Stat Prothrombin Time INR Stat 10/13/20 16:39 CT abdomen pelvis w con Stat Sodium Chloride (Normal Saline 0.9%) 1,000 mls @ 500 mls/hr IV BOLUS ONE Stop: 10/13/20 18:38 Last Admin: 10/13/20 17:00 Dose: 500 mls/hr Documented by: MALGORZATA Reevaluation(s) Reevaluation #1: Patient states he has well. He would like to return home after reviewing his findings today. Patient has had bowel resection in the past. He feels comfortable attempting liquid diet, Tylenol for pain control and his typical bowel regiment of 2 laxatives improved she has daily. We did discuss that if he has recurrent pain, fevers, vomiting is continuing to not have bowel movements and or stops passing gas that he does need to return to the department and he expresses his understanding. Time: 18:20 Consultations Consultation #1: Spoke with Dr. Law covering for Dr. Perez. Patient plans to return home and attempt management at home. Patient was offered observation. Plan for liquid diet, continue bowel regimen and tylenol prn for pain. If patient worsens he was asked to return to ER. Time: 18:24 Vital Signs Vital signs: Vital Signs - 8 hr 10/13/20 15:23 10/13/20 17:08 10/13/20 17:10 Temperature 98.5 F Pulse Rate 62 62 59 L Respiratory Rate 18 18 Blood Pressure 156/68 H 141/72 H Pulse Oximetry 96 96 98 10/13/20 17:11 10/13/20 17:31 10/13/20 17:32 Temperature Pulse Rate 59 L 59 L Respiratory Rate Blood Pressure 141/72 H 188/84 H Pulse Oximetry 96 95 10/13/20 18:00 10/13/20 18:01 Temperature Pulse Rate 58 L 58 L Respiratory Rate 16 Blood Pressure 166/78 H Pulse Oximetry 96 96 MDM - Abdominal Pain Lab Data Attestation: I reviewed the patient's lab results. Result diagrams: 10/13/20 15:36 10/13/20 15:36 Labs: Lab Results 10/13/20 10/13/20 10/13/20 Range/Units 15:36 15:36 15:36 WBC 6.4 (4.5-11.0) X10^3/uL RBC 4.20 L (4.5-5.9) X10^6/uL Hgb 12.2 L (13.5-17.5) g/dL Hct 37.1 L (41-53) % MCV 88.4 (80-100) fL MCH 29.1 (26-34) PG MCHC 32.9 (30-36) % RDW 14.5 (11.6-14.8) % Plt Count 299 (150-400) X10^3/uL Neut % (Auto) 60.4 (50-75) % Lymph % (Auto) 26.1 (25-40) % [place] % (Auto) 12.4 (3-14) % Eos % (Auto) 0.4 L (2-4) % Baso % (Auto) 0.7 (0-2) % Neut # (Auto) 3900 (1669-9000) /uL Lymph # (Auto) 1700 (5742-0150) /uL [place] # (Auto) 800 (0-900) /uL Eos # (Auto) 0 (0-450) /uL Baso # (Auto) 0 (0-100) /uL PT 13.0 H (10.1-12.7) SECONDS INR 1.1 (0.9-1.3) APTT 34 (26.4-36.2) SECONDS Sodium 136 L (137-145) mmol/L Potassium 4.5 (3.4-5.1) mmol/L Chloride 100 (98-107) mmol/L Carbon Dioxide 28 (22-32) mmol/L BUN 16 (9-20) mg/dL Creatinine 0.82 (0.66-1.25) mg/dL Estimated GFR > 60.0 (>60) mL/min BUN/Creatinine Ratio 19.5 (6-22) Glucose 115 H (80-110) mg/dL Calcium 9.2 (8.4-10.2) mg/dL Total Bilirubin 0.4 (0.2-1.3) mg/dL AST 29 (17-59) IU/L ALT 17 (<50) IU/L Alkaline Phosphatase 156 H (38-126) U/L Total Protein 7.5 (6.3-8.2) g/dL Albumin 4.2 (3.5-5.0) g/dL Globulin 3.3 (1.7-4.1) g/dL Albumin/Globulin Ratio 1.3 (1.0-2.8) Lipase 60 (23-300) U/L Imaging Data CT scan - abdomen/pelvis: Radiologist's Impression: [address] [id number] Scan ReportSigned Patient: Mark Stevens JMR#: [id number]: 5Acct:[id number]/Sex: 85 / MDate of Service: 10/13/20Loc: EDAccession Number: [id number] Procedure: CT abdomen pelvis w con Ordering Provider: Rach Sorensen D.O. PROCEDURE: CT ABDOMEN PELVIS W CON INDICATIONS: abdominal pain, diarrhea TECHNIQUE: After the administration of intravenous contrast, 5 mm thick sections acquired from the diaphragm to the symphysis. 5 mm coronal and sagittal reformats were acquired. For radiation dose reduction, the following was used: automated exposure control, adjustment of mA and/or kV according to patient size. COMPARISON: [facility], CT, CT ABDOMEN PELVIS W CON, 03/10/2018, 23:43. [facility], CT, CT ABDOMEN PELVIS W CON, 06/13/2019, 23:25. FINDINGS: Image quality: Excellent. ABDOMEN: Lung bases: A similar streaky opacity at the lung bases. This is most compatible with atelectasis or scarring. Minimal nodularity along the right major fissure partially visualized. No pleural effusion. Heart size is normal. Solid organs: Liver is normal in size. Ill-defined hypodensity in segment 4A/8 measuring 0.6 cm, (2/14). There is mild enhancement in this region on the prior CT from 2019 and 2018. This is most compatible with a small benign hemangioma. There are few additional well-circumscribed hepatic hypodensities which are also unchanged and consistent with benign cysts. Gallbladder is surgically absent. Biliary system is non dilated. Pancreas enhances normally. Spleen is normal in size and enhancement. No adrenal nodules. Kidneys demonstrate normal size, without hydronephrosis. Left kidney superior pole partially exophytic enhancing mass measuring 2.4 x 2.2 cm, (2/26), remotely measured to 2.1 x 2.1 cm in 2016. Right kidney superior pole intermediate density cystic lesion measuring 0.8 cm, (2/33), also unchanged since 2016. Benign simple cysts in both kidneys. A small kidney stones of both kidneys, unchanged. Peritoneum and bowel: Stomach is decompressed. Small duodenal diverticulum. Dilated loops of small bowel in the left abdomen. There is a gradual transition to normal caliber in the left abdomen. There is a small amount of free fluid in the pelvis. Diverticulosis. No diverticulitis seen. Normal appendix. No pneumoperitoneum. Nodes and vessels: No retroperitoneal or mesenteric adenopathy by size criteria. Aorta and inferior vena cava are normal in size. Extensive calcified atherosclerotic plaque in the abdominal aorta. Miscellaneous: No ventral hernias. PELVIS: Genitourinary: Bladder wall appears somewhat thickened accounting for decompressed status. Prostatomegaly. Miscellaneous: Small fat containing right inguinal hernia. No adenopathy. Bones: No suspicious bony lesions. No vertebral body compression fractures. IMPRESSION: 1. Several dilated loops of small bowel in the left abdomen. Findings concerning for developing small bowel obstruction. There is a gradual transition to normal caliber. 2. Small volume of free fluid in the pelvis. No pneumoperitoneum. 3. Enhancing mass in the superior pole the left kidney is mildly increased in size compared to 2016. This is concerning for indolent or benign renal mass. -updated renal MRI may be helpful for further characterization. Biopsy or continued surveillance could also be considered. 3. Question of mild thickening of the urinary bladder. 4. Prostatomegaly. Dictated by: Wilfredo Chi M.D. on 10/13/2020 at 17:39 Approved by: Wilfredo Chi M.D. on 10/13/2020 at 17:53 [facility] Narrative Medical decision making narrative: 85-year-old male comes with complaint of abdominal pain. Patient's CT shows findings concerning for bowel obstruction. Patient had a large diarrhea like bowel movement this morning, he has continued to have flatus. No nausea or vomiting he states abdominal pain is improved he states he has had bowel resections with wound dehiscence in the past for bowel obstruction. Patient states that is this time he is feeling much better and is more concern for a partial bowel obstruction he would prefer to return home, continue with clear fluids. He will use Tylenol for pain control, continue his normal prune juice and laxative regimen and if worsening return to the emergency department. Patient's labs do not show any new major abnormalities, his alk-phos is elevated from prior. There is also an enhancing mass in the left kidney mildly increased from size from 2016. Discharge Plan Departure Patient Disposition: Home Clinical Impression: Partial bowel obstruction Instructions: DI for Small Bowel Obstruction Activity Restrictions/Additional Instructions: Your imaging today is concerning for a bowel obstruction, as we have discussed observation has been offered but as you prefer to return home you will need to follow a liquid diet until your symptoms improve. You may take up to a 1000 mg every 8 hours as needed for pain. Continue your regular bowel regimen at home. Return to the ER for fevers, increasing abdominal pain, distension, persistent vomiting, if you are not having any bowel movements, if you are not passing gas or having other new or concerning symptoms. Prescriptions: No Action CA PANTOTHENATE/FOLIC ACID/VIT (MULTIVITAMIN) 1 liq PO QDAY Qty: 0 RF: 0 VITAMIN D (Vitamin D3) 1,000 unit PO QDAY Qty: 0 RF: 0 aspirin 81 mg Tablet,Chewable 81 mg PO DAILY Qty: 0 RF: 0 simvastatin 20 mg tablet 20 mg PO HS Qty: 90 RF: 3 prednisone 5 mg tablet 5 mg PO QDAY Qty: 90 RF: 3 allopurinol 100 mg tablet 100 mg PO DAILY Qty: 90 RF: 3 citalopram 40 mg tablet 40 mg PO DAILY Qty: 90 RF: 3 celecoxib [Celebrex] 200 mg capsule 200 mg PO DAILY Qty: 30 RF: 2 cyclobenzaprine 10 mg tablet 10 mg PO BID PRN (Reason: muscle spasm) Qty: 60 RF: 1 hydrocodone-acetaminophen 5-325 mg tablet 1 tab PO BEDTIME PRN (Reason: pain) Qty: 20 RF: 0 atenolol 50 mg tablet 100 mg PO DAILY Qty: 180 RF: 3 finasteride 5 mg tablet 5 mg PO DAILY Qty: 90 RF: 3 tramadol [Ultram] 50 mg tablet 50 mg PO Q6H PRN (Reason: pain) Qty: 10 RF: 0 gabapentin 300 mg capsule 300 mg PO .COMPLEX Qty: 90 RF: 2 Referrals: Samson Perez MD [Primary Care Provider] -
--- NOTE | 2020-10-13 16:39 | DI.CT.S_ITS ---
PROCEDURE: CT ABDOMEN PELVIS W CON INDICATIONS: abdominal pain, diarrhea TECHNIQUE: After the administration of intravenous contrast, 5 mm thick sections acquired from the diaphragm to the symphysis. 5 mm coronal and sagittal reformats were acquired. For radiation dose reduction, the following was used: automated exposure control, adjustment of mA and/or kV according to patient size. COMPARISON: [facility], CT, CT ABDOMEN PELVIS W CON, 03/10/2018, 23:43. [facility], CT, CT ABDOMEN PELVIS W CON, 06/13/2019, 23:25. FINDINGS: Image quality: Excellent. ABDOMEN: Lung bases: A similar streaky opacity at the lung bases. This is most compatible with atelectasis or scarring. Minimal nodularity along the right major fissure partially visualized. No pleural effusion. Heart size is normal. Solid organs: Liver is normal in size. Ill-defined hypodensity in segment 4A/8 measuring 0.6 cm, (2/14). There is mild enhancement in this region on the prior CT from 2019 and 2018. This is most compatible with a small benign hemangioma. There are few additional well-circumscribed hepatic hypodensities which are also unchanged and consistent with benign cysts. Gallbladder is surgically absent. Biliary system is non dilated. Pancreas enhances normally. Spleen is normal in size and enhancement. No adrenal nodules. Kidneys demonstrate normal size, without hydronephrosis. Left kidney superior pole partially exophytic enhancing mass measuring 2.4 x 2.2 cm, (2/26), remotely measured to 2.1 x 2.1 cm in 2016. Right kidney superior pole intermediate density cystic lesion measuring 0.8 cm, (2/33), also unchanged since 2016. Benign simple cysts in both kidneys. A small kidney stones of both kidneys, unchanged. Peritoneum and bowel: Stomach is decompressed. Small duodenal diverticulum. Dilated loops of small bowel in the left abdomen. There is a gradual transition to normal caliber in the left abdomen. There is a small amount of free fluid in the pelvis. Diverticulosis. No diverticulitis seen. Normal appendix. No pneumoperitoneum. Nodes and vessels: No retroperitoneal or mesenteric adenopathy by size criteria. Aorta and inferior vena cava are normal in size. Extensive calcified atherosclerotic plaque in the abdominal aorta. Miscellaneous: No ventral hernias. PELVIS: Genitourinary: Bladder wall appears somewhat thickened accounting for decompressed status. Prostatomegaly. Miscellaneous: Small fat containing right inguinal hernia. No adenopathy. Bones: No suspicious bony lesions. No vertebral body compression fractures. IMPRESSION: 1. Several dilated loops of small bowel in the left abdomen. Findings concerning for developing small bowel obstruction. There is a gradual transition to normal caliber. 2. Small volume of free fluid in the pelvis. No pneumoperitoneum. 3. Enhancing mass in the superior pole the left kidney is mildly increased in size compared to 2016. This is concerning for indolent or benign renal mass. -updated renal MRI may be helpful for further characterization. Biopsy or continued surveillance could also be considered. 3. Question of mild thickening of the urinary bladder. 4. Prostatomegaly. Dictated by: Wilfredo Chi M.D. on 10/13/2020 at 17:39 Approved by: Wilfredo Chi M.D. on 10/13/2020 at 17:53
[2020-10-13] MEDS: SODIUM CHLORIDE 0.9% 1,000 ML 500 ML IV (17:00)
== END 2020-10-13 18:34 | disposition home or self-care (01) ==
PROVIDERS: Emergency Provider Emergency Medicine; PCP Family Medicine
DX: K56.600 Partial intestinal obstruction, unspecified as to cause (principal); R10.9 Unspecified abdominal pain; Z79.82 Long term (current) use of aspirin
CPT/HCPCS: 36415; 74177; 80053; 83690; 85025; 85610; 85730; 93005; 96360; 96361; 99283; 99284; Q9967

== ENCOUNTER 2021-02-03 14:30 | Outpatient (RCR) | payer OTHER, SELFPAY ==
[2018-03-11 05:37] VITALS: BMI 23.8
--- NOTE | 2020-06-03 17:19 | PT.OIE ---
Current Diagnoses Osteoarthritis of hip, unspecified (06/03/20) Other intervertebral disc displacement, lumbosacral region (06/03/20) Muscle weakness (generalized) (06/03/20) Unsteadiness on feet (06/03/20) Past Medical History (Last Reviewed 05/26/20 @ 17:47 by Jamir Bowen DO) Bilateral renal cysts (Resolved) Cataract (Resolved) Coronary artery disease (Chronic) Degenerative joint disease (DJD) of hip (Acute) Degenerative joint disease of knee (Acute) Diverticular disease of colon (Chronic) Gait instability (Acute) Gout (Chronic) Greater trochanteric bursitis of left hip (Acute) Hemorrhoids (Chronic) Herniated nucleus pulposus, L5-S1, left (Acute) History of small bowel obstruction (Chronic) Hyperlipidemia (Chronic) Hypertension (Chronic) Myocardial infarction (Resolved) 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) Osteoarthritis of right hand (Chronic 12/19/13) Polymyalgia rheumatica (Chronic) Small bowel obstruction (Chronic) 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) Trigeminal neuralgia (Chronic) Past Surgical History (Last Reviewed 05/26/20 @ 17:47 by Jamir Bowen DO) History of angioplasty (Resolved 2001) History of gastrointestinal surgery (Resolved) Hx of inguinal hernia surgery (Resolved) Status post cholecystectomy (Resolved) Visit Care Team Role Provider Type Samson Perez MD Primary Care Provider Physician Specialty: Family Practice Address: [address] [place] [id number] Email: [email or web address] Jamir Bowen DO Attending Provider Physician Referring Provider Specialty: Physiatry Pain Management Address: [address] [place] [id number] Email: [email or web address] Physical Therapy Initial Evaluation PT-OP-A Visit Information Start: 06/02/20 18:24 Freq: Status: Active Protocol: Document 06/03/20 09:46 LRN (Rec: 06/03/20 10:43 LRN [id number]) Out-Patient Physical Therapy Visit Information Visit Information Visit Type Initial Evaluation Visit Start Time 09:46 Visit Stop Time 10:42 Total Visit Minutes 56 Visit Number 1 Evaluation Information Evaluation Date 06/03/20 Precautions Precautions L knee has not been able to straighten for ~ 2 yrs. Current Dx (per history review ): Left herniated disc (L5-S1 ), Hip Osteoarthritis, Polymyalgia rheumatica, spondylosis of lumbar spine, and HTN. PT-OP-B Current Condition Start: 06/02/20 18:24 Freq: Status: Active Protocol: Document 06/03/20 09:46 LRN (Rec: 06/03/20 10:43 LRN [id number]) Current Condition History of Current Condition Onset Date 2.5 months Current Complaints L hip and leg pain, buttock to foot down lateral LE. History of Current Condition Pain onset insidious. States he has disc problems in the back and it was thought he had a pinched nerve. The injection provided relief for 1.5 days. Now he feels he is getting progressively worse. Getting up in the morning pain is 8-10/10 and lessens during the day to 3-4/10. After sitting for awhile (1 hr) after walking to the kitchen his pain increases. By bedtime pain is 6-10/10. Sleeps 4-5 hrs and then must get up due to the pain. Not able to take pain pills due to bowel problems. Takes Tylenol nightly and upon waking to help control the pain. Prior Treatments and Tests Dr. Bowen gave him a shot in the back and a week lateral to hip. Pain was a little better after the injections. Pain changed from 10 to 4. Future Testing and Treatments Planned Dr. Bowen follow up in July. Treatment Goals Patient/Caregiver Goals Pt goals: Walk dog with . Decrease pain to sleep 6-8 hrs peacefully without use of Tylenol. Decrease use of Tylenol for sleep. Prior Functional Status Baseline Function- ADL's Independent Baseline Function- Mobility Independent Baseline Function- Gait Pt able to walk without difficulty. Baseline Function- Other Not able to walk with to walk dog due to feeling of leg giving way. Able to sleep 6-8 hours per night. Current Functional Impairments (Reported) Functional Limitations- Mobility/Gait Pain with walking, not steady. Functional Limitations- Recreation/ Walked with to walk dog 1 [address]. 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 L knee has not been able to straighten for ~ 2 yrs. Current Dx (per history review ): Left herniated disc (L5-S1 ), Hip Osteoarthritis, Polymyalgia rheumatica, spondylosis of lumbar spine, and HTN. PT-OP-C Subjective Start: 06/02/20 18:24 Freq: Status: Active Protocol: Document 06/03/20 09:46 LRN (Rec: 06/03/20 10:43 LRN [id number]) OP-PT Subjective Patient Comments Patient Comments Uses heat to L leg and it helps to take his mind off the pain. Patient Questionnaires Lower Extremity Functional Scale LEFS Score 15 LEFS Impairment 80 to 99% Impaired (Score 1-16 ) OP-PT Pain Assessment Pain Assessment Grid Paper Pain Assessment Grid Completed Yes Location Left Leg Intensity 9 Scale Used Numeric (0 - 10) Description Aching,Dull,Sharp,Shooting Frequency Constant PT-OP-D Balance Start: 06/02/20 18:24 Freq: Status: Active Protocol: Document 06/03/20 09:46 LRN (Rec: 06/03/20 16:33 LRN [id number]) OP-PT Balance Assessment Standing Balance Static Standing Balance Ability Poor Dynamic Standing Balance Ability Fair Standing Balance Comments Pt has loss of balance on initial standing, using plinth to stabilized at legs and snowden as standing time increases. Pt did not tolerate static standing for > 5' before pain in LLE caused him to request sitting. Alba Fall Scale Copyright Permission PT-OP-E Functional Tests Start: 06/02/20 18:24 Freq: Status: Active Protocol: Document 06/03/20 09:46 LRN (Rec: 06/03/20 14:51 LRN [id number]) Functional Tests Timed Up and Go (TUG) Score 24 TUG Impairment Rating 100% Impaired (Score 20) PT-OP-G Mobility & Gait Start: 06/02/20 18:24 Freq: Status: Active Protocol: Document 06/03/20 09:46 LRN (Rec: 06/03/20 14:51 LRN [id number]) OP Gait Assessment Gait Gait Assistance Required: Standby Assistance Distance (Feet) 60 Able to Maintain Weight Bearing Status Yes During Gait Assistive Devices Assistive Device None Gait Deviations General Gait Pattern Decreased Stride Length, Decreased Feet Clearance, Flexed Trunk,Wide Based Gait Factors Limiting Gait Function Factors Limiting Gait Function Decreased Activity Tolerance, Decreased Strength,Pain,Poor Balance PT-OP-H Neuro Start: 06/02/20 18:24 Freq: Status: Active Protocol: Document 06/03/20 09:46 LRN (Rec: 06/03/20 14:51 LRN [id number]) Sensation Evaluation Gross Sensation Gross Sensation Left LE Impaired Sensation Description Numbness,Pain Dermatome Impairments L4,L5,S1 Deep Tendon Reflex & Clonus Assessment Deep Tendon Reflex Left Achilles Deep Tendon Reflex 0 Absent Bilateral Patellar Deep Tendon Reflex 1+ Diminished PT-OP-J Posture/Palpation/Skin Start: 06/02/20 18:24 Freq: Status: Active Protocol: Document 06/03/20 09:46 LRN (Rec: 06/03/20 14:51 LRN [id number]) Posture Evaluation Position Standing Head/C-Spine Posture Forward Head L-Spine Posture Flattened Pelvis Posture Posterior Tilted Hip Posture (L) Flexed,(R) Flexed Palpation Assessment Location L TFL Palpation Location TFL Muscle belly Palpation Findings Tenderness L lateral hip Palpation Location Greater trochanter Palpation Findings Tenderness PT-OP-K Range of Motion Start: 06/02/20 18:24 Freq: Status: Active Protocol: Document 06/03/20 09:46 LRN (Rec: 06/03/20 14:51 LRN [id number]) Hip Goniometric Range of Motion Hip Right Passive Testing Position Supine Straight Leg Raise 70 Abduction 28 Internal Rotation 40 External Rotation 70 Left Passive Testing Position Supine Straight Leg Raise 70 Abduction 20 Internal Rotation 40 External Rotation 50 Knee Goniometric Range of Motion Knee Right Knee ROM WFL Yes Patient Position Supine Extension Active (degrees) 0 Left Knee ROM WFL Yes Patient Position Supine Extension Active (degrees) 0 PT-OP-L Special Tests Start: 06/02/20 18:24 Freq: Status: Active Protocol: Document 06/03/20 09:46 LRN (Rec: 06/03/20 14:51 LRN [id number]) Special Tests Lumbar Spine Special Tests Straight Leg Raise Test Results Neg bilaterally Comments Hamstring tightness Hip Special Tests AILEEN Test Results + R for anterior groin pain Comments Indicates 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 Indicates possible SIJ dysfunction. PT-OP-M Strength Start: 06/02/20 18:24 Freq: Status: Active Protocol: Document 06/03/20 09:46 LRN (Rec: 06/03/20 14:51 LRN [id number]) Hip Strength Hip Manual Muscle Testing Right Flexion (L2) 5 Normal Abduction 4 Good Adduction 2 Poor Left Flexion (L2) 5 Normal Abduction 2+ Poor+ Adduction 1 Trace Knee Strength Knee Manual Muscle Testing Right Flexion (S2) 5 Normal Extension (L3) 5 Normal Left Flexion (S2) 5 Normal Extension (L3) 5 Normal Ankle/Foot Strength Ankle and Foot Manual Muscle Testing Right Comments All tests 5/5 Left Comments All tests 5/5 PT-OP-Q Treatments Start: 06/02/20 18:24 Freq: Status: Active Protocol: Document 06/03/20 09:46 LRN (Rec: 06/03/20 14:51 LRN [id number]) Therapeutic Exercises Sitting Exercises Joe R hip flex Sitting Exercise Name Self manual resistance of R hip Flex w/L hip ext f/b hip relaxation mob Side right Reps/Minutes Hold x 6 Comments Training needed both phy & v. for pt to do correctly. Self-Care/Home Management Treatment Education Patient Education Home Exercise Program Other Education Educated and discussed with pt in using ice for a day, then heat for a day to determine modality of preference based on outcomes from use. Activities Self-Care/Home Management Activities Discussed and I/S pt in doing isometric resisted R hip Flex 2x/day, or as often as he sits . PT-OP-T Assessment and Plan Start: 06/02/20 18:24 Freq: Status: Active Protocol: Document 06/03/20 09:46 LRN (Rec: 06/03/20 10:43 LRN [id number]) Physical Therapy Assessment Rehab Potential Rehabilitation Potential Good Evaluation Complexity Number of Personal Factors/Comorbidities 3 or More Number of Body Systems Impaired 4 or More Clinical Presentation at Evaluation Evolving Impairments Impairments Activity Tolerance,Balance, Functional Mobility,Gait,Pain, Posture,ROM,Soft Tissue Mobility,Strength Goals Four Impairment Decreased L hip strength (AB 2 +/5, AD 1/5) Short Term Goal (STG) Pt will be able to move in bed with tolerable pain. STG Duration 07/16/20 Senior Research Engineer Goal (LTG) Pt will be able to ambulate stairs and level ground with confidence to return to dog walking with his . LTG Duration 10/01/20 Three Impairment Decreased balance, loss of balance on initial standing and after 5'. Short Term Goal (STG) Pt will be able to transfer sit to stand without fear of losing his balance, and decreased TUG score to 19 sec' s. STG Duration 07/16/20 Prison Goal (LTG) Decrease TUG time to 13-14 sec 's with pt able to stand > 5' without fear of loss of balance. LTG Duration 10/01/20 Two Impairment LLE pain from hip to foot rated 0-9/10, disturbing sleep . Short Term Goal (STG) Pt will reduce his need for Tylenol and will improve standing tolerance such that he will be able to exercise through an entire PT session. STG Duration 07/16/20 Senior Research Engineer Goal (LTG) Pt will be able to improve sleep duration to 6-8 hrs for the majority of the time. LTG Duration 10/01/20 One Impairment Lacks appropriate self care HEP. Senior Research Engineer Goal (LTG) Pt will be independent with a self care HEP. 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 He is having quite a lot of pain in the LLE that appears sciatic in nature per symptoms of L lateral leg pain and lack of LE weakness. He does have sensory dysfunction of the LLE with decreased sensation of the lower leg in primarily the L5, S1, S2 dermatomes. He is impaired in his L achilles reflex, indicating lumbar neurological involvement. He is quite functionally limited per LEFS score (80-89% impaired), and per TUG score of 24 secs (normal for 80-89 yr olds is 13.5 secs), indicating 100% impaired, therefore a fall risk. The pt has noted he has fallen 2x since his pain has started, once stepping on a hose and the 2nd time missing the last step while descending stairs. The pt is quite physically limited and due to his age it is expected that his rehabilitation will be prolonged. The pt will benefit from skilled physical therapy to improve pelvic/core symmetry and stability, and to improve his L LE mobility/ strength, allowing him to improve his balance and improve his safety and stability with gait. Physical Therapy Plan Frequency and Duration Frequency of Treatment 2x/Week Plan of Care Start Date 06/03/20 Plan of Care End Date 10/01/20 Therapeutic Interventions Therapeutic Interventions Balance Training,Gait Training ,Home Exercise Program,Joint Mobilizations,Manual Therapy, Neuromuscular Re-education, Patient/Caregiver Education, Self-Care/Home Management,Soft Tissue Mobilization, Therapeutic Activities, Therapeutic Exercises Modalities Cold Pack/Ice Massage,Electric Stimulation,Hot Packs, Ultrasound Next Visit Focus/Plan Next Note Type Treatment Note Next Visit Plan Assess lumbar mobility and provocation of axial compression or repetitive flexion, and initiate possibly lumbar ext ROM & hip ROM (LE neural, L hip ER & AB stretch) ex's, check hip IR/ER strength and monitor SIJ dysfunction (Tests: log roll, Stinchfield, Distraction & Lateral compression, Thigh Thrust, Gaenslen). SIJ mob for downslip & for an anteriorly rotated innominate followed by pelvic/core stabilization.
--- NOTE | 2020-06-03 17:22 | PT.OPPOC ---
Physical, Occupational & Speech Therapy At [facility] Current Diagnoses Osteoarthritis of hip, unspecified (06/03/20) Other intervertebral disc displacement, lumbosacral region (06/03/20) Muscle weakness (generalized) (06/03/20) Unsteadiness on feet (06/03/20) Visit Care Team Role Provider Type Samson Perez MD Primary Care Provider Physician Specialty: Family Practice Address: [address] [place] [address], [id number] Email: [email or web address] Jamir Bowen DO Attending Provider Physician Referring Provider Specialty: Physiatry Pain Management Address: [address] [place] [address], [id number] Email: [email or web address] Plan Of Care PT-OP-T Assessment and Plan Start: 06/02/20 18:24 Freq: Status: Active Protocol: Document 06/03/20 09:46 LRN (Rec: 06/03/20 10:43 LRN [id number]) Physical Therapy Assessment Rehab Potential Rehabilitation Potential Good Evaluation Complexity Number of Personal Factors/Comorbidities 3 or More Number of Body Systems Impaired 4 or More Clinical Presentation at Evaluation Evolving Impairments Impairments Activity Tolerance,Balance, Functional Mobility,Gait,Pain, Posture,ROM,Soft Tissue Mobility,Strength Goals Four Impairment Decreased L hip strength (AB 2 +/5, AD 1/5) Short Term Goal (STG) Pt will be able to move in bed with tolerable pain. STG Duration 07/16/20 Residential Goal (LTG) Pt will be able to ambulate stairs and level ground with confidence to return to dog walking with his . LTG Duration 10/01/20 Three Impairment Decreased balance, loss of balance on initial standing and after 5'. Short Term Goal (STG) Pt will be able to transfer sit to stand without fear of losing his balance, and decreased TUG score to 19 sec' s. STG Duration 07/16/20 Residential Goal (LTG) Decrease TUG time to 13-14 sec 's with pt able to stand > 5' without fear of loss of balance. LTG Duration 10/01/20 Two Impairment LLE pain from hip to foot rated 0-9/10, disturbing sleep . Short Term Goal (STG) Pt will reduce his need for Tylenol and will improve standing tolerance such that he will be able to exercise through an entire PT session. STG Duration 07/16/20 Baggage Porter Head Goal (LTG) Pt will be able to improve sleep duration to 6-8 hrs for the majority of the time. LTG Duration 10/01/20 One Impairment Lacks appropriate self care HEP. Residential Goal (LTG) Pt will be independent with a self care HEP. 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 He is having quite a lot of pain in the LLE that appears sciatic in nature per symptoms of L lateral leg pain and lack of LE weakness. He does have sensory dysfunction of the LLE with decreased sensation of the lower leg in primarily the L5, S1, S2 dermatomes. He is impaired in his L achilles reflex, indicating lumbar neurological involvement. He is quite functionally limited per LEFS score (80-89% impaired), and per TUG score of 24 secs (normal for 80-89 yr olds is 13.5 secs), indicating 100% impaired, therefore a fall risk. The pt has noted he has fallen 2x since his pain has started, once stepping on a hose and the 2nd time missing the last step while descending stairs. The pt is quite physically limited and due to his age it is expected that his rehabilitation will be prolonged. The pt will benefit from skilled physical therapy to improve pelvic/core symmetry and stability, and to improve his L LE mobility/ strength, allowing him to improve his balance and improve his safety and stability with gait. Physical Therapy Plan Frequency and Duration Frequency of Treatment 2x/Week Plan of Care Start Date 06/03/20 Plan of Care End Date 10/01/20 Therapeutic Interventions Therapeutic Interventions Balance Training,Gait Training ,Home Exercise Program,Joint Mobilizations,Manual Therapy, Neuromuscular Re-education, Patient/Caregiver Education, Self-Care/Home Management,Soft Tissue Mobilization, Therapeutic Activities, Therapeutic Exercises Modalities Cold Pack/Ice Massage,Electric Stimulation,Hot Packs, Ultrasound Next Visit Focus/Plan Next Note Type Treatment Note Next Visit Plan Assess lumbar mobility and provocation of axial compression or repetitive flexion, and initiate possibly lumbar ext ROM & hip ROM (LE neural, L hip ER & AB stretch) ex's, check hip IR/ER strength and monitor SIJ dysfunction (Tests: log roll, Stinchfield, Distraction & Lateral compression, Thigh Thrust, Gaenslen). SIJ mob for downslip & for an anteriorly rotated innominate followed by pelvic/core stabilization. Plan of Care Dates Plan of Care Start Date 06/03/20 Plan of Care End Date 10/01/20 Electronically Signed by: Mercedes Santos, PT 06/03/20 [id number] Please Sign and Return: I have reviewed this Plan of Care and certify that the skilled therapy services above are required to meet the patient?s needs. Physician Signature Date Printed Name and Credentials Clinical Instructor Signature Printed Name and Credentials
--- NOTE | 2020-06-08 15:31 | PT.OTN ---
Current Diagnoses Osteoarthritis of hip, unspecified (06/08/20) Other intervertebral disc displacement, lumbosacral region (06/08/20) Muscle weakness (generalized) (06/08/20) Unsteadiness on feet (06/08/20) Physical Therapy Treatment Note PT-OP-A Visit Information Start: 06/02/20 18:24 Freq: Status: Active Protocol: Document 06/08/20 14:27 LRN (Rec: 06/08/20 15:30 LRN [id number]) Out-Patient Physical Therapy Visit Information Visit Information Visit Type Treatment Note Visit Start Time 14:27 Visit Stop Time 15:10 Total Visit Minutes 43 Visit Number 2 Evaluation Information Evaluation Date 06/03/20 Precautions Precautions L knee has not been able to straighten for ~ 2 yrs. Current Dx (per history review ): Left herniated disc (L5-S1 ), Hip Osteoarthritis, Polymyalgia rheumatica, spondylosis of lumbar spine, and HTN. PT-OP-B Current Condition Start: 06/02/20 18:24 Freq: Status: Active Protocol: Document 06/03/20 09:46 LRN (Rec: 06/03/20 10:43 LRN [id number]) Current Condition History of Current Condition Onset Date 2.5 months Current Complaints L hip and leg pain, buttock to foot down lateral LE. History of Current Condition Pain onset insidious. States he has disc problems in the back and it was thought he had a pinched nerve. The injection provided relief for 1.5 days. Now he feels he is getting progressively worse. Getting up in the morning pain is 8-10/10 and lessens during the day to 3-4/10. After sitting for awhile (1 hr) after walking to the kitchen his pain increases. By bedtime pain is 6-10/10. Sleeps 4-5 hrs and then must get up due to the pain. Not able to take pain pills due to bowel problems. Takes Tylenol nightly and upon waking to help control the pain. Prior Treatments and Tests Dr. Bowen gave him a shot in the back and a week lateral to hip. Pain was a little better after the injections. Pain changed from 10 to 4. Future Testing and Treatments Planned Dr. Bowen follow up in July. Treatment Goals Patient/Caregiver Goals Pt goals: Walk dog with . Decrease pain to sleep 6-8 hrs peacefully without use of Tylenol. Decrease use of Tylenol for sleep. Prior Functional Status Baseline Function- ADL's Independent Baseline Function- Mobility Independent Baseline Function- Gait Pt able to walk without difficulty. Baseline Function- Other Not able to walk with to walk dog due to feeling of leg giving way. Able to sleep 6-8 hours per night. Current Functional Impairments (Reported) Functional Limitations- Mobility/Gait Pain with walking, not steady. Functional Limitations- Recreation/ Walked with to walk dog 1 Hobb[address] mile. 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 L knee has not been able to straighten for ~ 2 yrs. Current Dx (per history review ): Left herniated disc (L5-S1 ), Hip Osteoarthritis, Polymyalgia rheumatica, spondylosis of lumbar spine, and HTN. PT-OP-C Subjective Start: 06/02/20 18:24 Freq: Status: Active Protocol: Document 06/08/20 14:27 LRN (Rec: 06/08/20 15:30 LRN [id number]) OP-PT Subjective Patient Comments Patient Comments States there is no change. Pain mainly in the morning (4a -9a) and again at 10pm. Takes 2 tylenol to get to sleep. States sometimes he leans forward and stretches his back to relieve his back pain. PT-OP-D Balance Start: 06/02/20 18:24 Freq: Status: Active Protocol: Document 06/03/20 09:46 LRN (Rec: 06/03/20 16:33 LRN [id number]) OP-PT Balance Assessment Standing Balance Static Standing Balance Ability Poor Dynamic Standing Balance Ability Fair Standing Balance Comments Pt has loss of balance on initial standing, using plinth to stabilized at legs and snowden as standing time increases. Pt did not tolerate static standing for > 5' before pain in LLE caused him to request sitting. Alba Fall Scale Copyright Permission PT-OP-E Functional Tests Start: 06/02/20 18:24 Freq: Status: Active Protocol: Document 06/03/20 09:46 LRN (Rec: 06/03/20 14:51 LRN [id number]) Functional Tests Timed Up and Go (TUG) Score 24 TUG Impairment Rating 100% Impaired (Score 20) PT-OP-G Mobility & Gait Start: 06/02/20 18:24 Freq: Status: Active Protocol: Document 06/03/20 09:46 LRN (Rec: 06/03/20 14:51 LRN [id number]) OP Gait Assessment Gait Gait Assistance Required: Standby Assistance Distance (Feet) 60 Able to Maintain Weight Bearing Status Yes During Gait Assistive Devices Assistive Device None Gait Deviations General Gait Pattern Decreased Stride Length, Decreased Feet Clearance, Flexed Trunk,Wide Based Gait Factors Limiting Gait Function Factors Limiting Gait Function Decreased Activity Tolerance, Decreased Strength,Pain,Poor Balance PT-OP-H Neuro Start: 06/02/20 18:24 Freq: Status: Active Protocol: Document 06/03/20 09:46 LRN (Rec: 06/03/20 14:51 LRN [id number]) Sensation Evaluation Gross Sensation Gross Sensation Left LE Impaired Sensation Description Numbness,Pain Dermatome Impairments L4,L5,S1 Deep Tendon Reflex & Clonus Assessment Deep Tendon Reflex Left Achilles Deep Tendon Reflex 0 Absent Bilateral Patellar Deep Tendon Reflex 1+ Diminished PT-OP-J Posture/Palpation/Skin Start: 06/02/20 18:24 Freq: Status: Active Protocol: Document 06/03/20 09:46 LRN (Rec: 06/03/20 14:51 LRN [id number]) Posture Evaluation Position Standing Head/C-Spine Posture Forward Head L-Spine Posture Flattened Pelvis Posture Posterior Tilted Hip Posture (L) Flexed,(R) Flexed Palpation Assessment Location L TFL Palpation Location TFL Muscle belly Palpation Findings Tenderness L lateral hip Palpation Location Greater trochanter Palpation Findings Tenderness PT-OP-K Range of Motion Start: 06/02/20 18:24 Freq: Status: Active Protocol: Document 06/08/20 14:27 LRN (Rec: 06/08/20 15:30 LRN [id number]) Lumbar Spine Range of Motion Lumbar Spine Active Degrees Testing Position Standing Flexion 7 Extension 5 Lateral Flexion Left 10 Lateral Flexion Right 15 Comments Trunk flex: 5 hip flex Trunk ext: 5 hip ext PT-OP-L Special Tests Start: 06/02/20 18:24 Freq: Status: Active Protocol: Document 06/03/20 09:46 LRN (Rec: 06/03/20 14:51 LRN [id number]) Special Tests Lumbar Spine Special Tests Straight Leg Raise Test Results Neg bilaterally Comments Hamstring tightness Hip Special Tests AILEEN Test Results + R for anterior groin pain Comments Indicates 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 Indicates possible SIJ dysfunction. PT-OP-M Strength Start: 06/02/20 18:24 Freq: Status: Active Protocol: Document 06/03/20 09:46 LRN (Rec: 06/03/20 14:51 LRN [id number]) Hip Strength Hip Manual Muscle Testing Right Flexion (L2) 5 Normal Abduction 4 Good Adduction 2 Poor Left Flexion (L2) 5 Normal Abduction 2+ Poor+ Adduction 1 Trace Knee Strength Knee Manual Muscle Testing Right Flexion (S2) 5 Normal Extension (L3) 5 Normal Left Flexion (S2) 5 Normal Extension (L3) 5 Normal Ankle/Foot Strength Ankle and Foot Manual Muscle Testing Right Comments All tests 5/5 Left Comments All tests 5/5 PT-OP-Q Treatments Start: 06/02/20 18:24 Freq: Status: Active Protocol: Document 06/08/20 14:27 LRN (Rec: 06/08/20 15:30 LRN [id number]) Therapeutic Exercises Supine Exercises TA Supine Exercise Name TA awareness training and tightening exercise Reps/Minutes 15' Comments Pt needed extensive awareness training, f/b TA tightening 10 hold x 8 Sitting Exercises Joe R hip flex Sitting Exercise Name Self manual resistance of R hip Flex w/L hip ext f/b hip relaxation mob Side right Reps/Minutes Hold x 6 Comments Training needed both phy & v. for pt to do correctly. Therapeutic Activity Therapeutic Activity Sit <-> Supine Name Sit <-> Supine training w/TA contraction Reps/Minutes 5' Comments Pt needed extensive physical and verbal cuing. He was not able to maintain a TA contraction during the transfer, but showed less pain behaviors during transfer training. Sit<->Stand Name Sit <-> stand training to pivot @ hips w/TA contraction Reps/Minutes 3' Comments Pt learned pivoting at hips for transfer and was able to perform transfer w/some discomfort in L lateral thigh. Manual Therapy Treatment Joint Mobilizations Posterior rot L innominate Joint L innominate Direction Posterior rot Grade II Body Position Sidelying Reps/Duration 3' L SIJ Joint Corecting a L innominate outflare Direction Resisted hip AD Body Position Supine Reps/Duration 5' Comments Able to correct outflare. Pt's pelvis almost in neutral, L ASIS ended slightly more anterior than the R ASIS. Pt L knee was able to lie full straight with mild pain in the L lateral LE. R SIJ Joint Correcting a R innominate inflare Body Position Supine Reps/Duration 5' Comments MFR technique with no success. Manual Traction Lumbar Details Manual lumbar tractioin Body Position Supine Reps/Duration 4' Self-Care/Home Management Treatment Education Patient Education Body Mechanics,Home Exercise Program Other Education Educated pt in proper lifting and reaching, with cuing to use legs with equal weightbearing. Activities Self-Care/Home Management Activities Issued & reviewed HEP: Lower Abdominal Progression (TA contraction). PT-OP-T Assessment and Plan Start: 06/02/20 18:24 Freq: Status: Active Protocol: Document 06/08/20 14:27 LRN (Rec: 06/08/20 15:30 LRN [id number]) Physical Therapy Assessment Goals Four Impairment Decreased L hip strength (AB 2 +/5, AD 1/5) Short Term Goal (STG) Pt will be able to move in bed with tolerable pain. STG Duration 07/16/20 Senior Living Goal (LTG) Pt will be able to ambulate stairs and level ground with confidence to return to dog walking with his . LTG Duration 10/01/20 Three Impairment Decreased balance, loss of balance on initial standing and after 5'. Short Term Goal (STG) Pt will be able to transfer sit to stand without fear of losing his balance, and decreased TUG score to 19 sec' s. STG Duration 07/16/20 [employer] Goal (LTG) Decrease TUG time to 13-14 sec 's with pt able to stand > 5' without fear of loss of balance. LTG Duration 10/01/20 Two Impairment LLE pain from hip to foot rated 0-9/10, disturbing sleep . Short Term Goal (STG) Pt will reduce his need for Tylenol and will improve standing tolerance such that he will be able to exercise through an entire PT session. STG Duration 07/16/20 [employer] Goal (LTG) Pt will be able to improve sleep duration to 6-8 hrs for the majority of the time. LTG Duration 10/01/20 One Impairment Lacks appropriate self care HEP. [employer] Goal (LTG) Pt will be independent with a self care HEP. LTG Duration 10/01/20 (06/08/20: Progressing) Assessment Summary Assessment Pt had low tolerance to standing for trunk ROM; therfore ROM is severely limited. Repetitive trunk flex in sitting did not cause increase in LLE pain; therfore expect pt sciatic pain due to mechanical dysfunction of the pelvic region. After correction of L outflare, pt had less L LE lateral pain and ability to straighten his LLE to normal without L knee pain . Physical Therapy Plan Frequency and Duration Frequency of Treatment 2x/Week Plan of Care Start Date 06/03/20 Plan of Care End Date 10/01/20 Next Visit Focus/Plan Next Note Type Treatment Note Next Visit Plan Initiate lumbar/pelvic stabilization & hip ROM (LE neural, L hip ER & AB stretch) ex's, check hip IR/ER strength and monitor SIJ dysfunction (Tests: log roll - found negative, Stinchfield, Distraction & Lateral compression, Thigh Thrust, Gaenslen). SIJ mob for possible downslip. Check for L innominate outflare & for a R anteriorly rotated innominate followed by pelvic/ core stabilization.
--- NOTE | 2020-06-15 09:53 | PT.OTN ---
Current Diagnoses Osteoarthritis of hip, unspecified (06/15/20) Other intervertebral disc displacement, lumbosacral region (06/15/20) Muscle weakness (generalized) (06/15/20) Unsteadiness on feet (06/15/20) Physical Therapy Treatment Note PT-OP-A Visit Information Start: 06/02/20 18:24 Freq: Status: Active Protocol: Document 06/15/20 09:01 HH (Rec: 06/15/20 09:53 HH [id number]) Out-Patient Physical Therapy Visit Information Visit Information Visit Type Treatment Note Visit Start Time 09:02 Visit Stop Time 09:45 Total Visit Minutes 43 Visit Number 3 PT-OP-B Current Condition Start: 06/02/20 18:24 Freq: Status: Active Protocol: Document 06/03/20 09:46 LRN (Rec: 06/03/20 10:43 LRN [id number]) Current Condition History of Current Condition Onset Date 2.5 months Current Complaints L hip and leg pain, buttock to foot down lateral LE. History of Current Condition Pain onset insidious. States he has disc problems in the back and it was thought he had a pinched nerve. The injection provided relief for 1.5 days. Now he feels he is getting progressively worse. Getting up in the morning pain is 8-10/10 and lessens during the day to 3-4/10. After sitting for awhile (1 hr) after walking to the kitchen his pain increases. By bedtime pain is 6-10/10. Sleeps 4-5 hrs and then must get up due to the pain. Not able to take pain pills due to bowel problems. Takes Tylenol nightly and upon waking to help control the pain. Prior Treatments and Tests Dr. Bowen gave him a shot in the back and a week lateral to hip. Pain was a little better after the injections. Pain changed from 10 to 4. Future Testing and Treatments Planned Dr. Bowen follow up in July. Treatment Goals Patient/Caregiver Goals Pt goals: Walk dog with . Decrease pain to sleep 6-8 hrs peacefully without use of Tylenol. Decrease use of Tylenol for sleep. Prior Functional Status Baseline Function- ADL's Independent Baseline Function- Mobility Independent Baseline Function- Gait Pt able to walk without difficulty. Baseline Function- Other Not able to walk with to walk dog due to feeling of leg giving way. Able to sleep 6-8 hours per night. Current Functional Impairments (Reported) Functional Limitations- Mobility/Gait Pain with walking, not steady. Functional Limitations- Recreation/ Walked with to walk dog 1 Hobbies mile. 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 L knee has not been able to straighten for ~ 2 yrs. Current Dx (per history review ): Left herniated disc (L5-S1 ), Hip Osteoarthritis, Polymyalgia rheumatica, spondylosis of lumbar spine, and HTN. PT-OP-C Subjective Start: 06/02/20 18:24 Freq: Status: Active Protocol: Document 06/15/20 09:01 HH (Rec: 06/15/20 09:53 HH [id number]) OP-PT Subjective Patient Comments Patient Comments Its been so bad lately that I couldnt sleep normally. Im going to call Dr. Bowen to probably get more shots. Patient Reported Progress Worse PT-OP-D Balance Start: 06/02/20 18:24 Freq: Status: Active Protocol: Document 06/03/20 09:46 LRN (Rec: 06/03/20 16:33 LRN [id number]) OP-PT Balance Assessment Standing Balance Static Standing Balance Ability Poor Dynamic Standing Balance Ability Fair Standing Balance Comments Pt has loss of balance on initial standing, using plinth to stabilized at legs and snowden as standing time increases. Pt did not tolerate static standing for > 5' before pain in LLE caused him to request sitting. Alba Fall Scale Copyright Permission PT-OP-E Functional Tests Start: 06/02/20 18:24 Freq: Status: Active Protocol: Document 06/03/20 09:46 LRN (Rec: 06/03/20 14:51 LRN [id number]) Functional Tests Timed Up and Go (TUG) Score 24 TUG Impairment Rating 100% Impaired (Score 20) PT-OP-G Mobility & Gait Start: 06/02/20 18:24 Freq: Status: Active Protocol: Document 06/03/20 09:46 LRN (Rec: 06/03/20 14:51 LRN [id number]) OP Gait Assessment Gait Gait Assistance Required: Standby Assistance Distance (Feet) 60 Able to Maintain Weight Bearing Status Yes During Gait Assistive Devices Assistive Device None Gait Deviations General Gait Pattern Decreased Stride Length, Decreased Feet Clearance, Flexed Trunk,Wide Based Gait Factors Limiting Gait Function Factors Limiting Gait Function Decreased Activity Tolerance, Decreased Strength,Pain,Poor Balance PT-OP-H Neuro Start: 06/02/20 18:24 Freq: Status: Active Protocol: Document 06/03/20 09:46 LRN (Rec: 06/03/20 14:51 LRN [id number]) Sensation Evaluation Gross Sensation Gross Sensation Left LE Impaired Sensation Description Numbness,Pain Dermatome Impairments L4,L5,S1 Deep Tendon Reflex & Clonus Assessment Deep Tendon Reflex Left Achilles Deep Tendon Reflex 0 Absent Bilateral Patellar Deep Tendon Reflex 1+ Diminished PT-OP-J Posture/Palpation/Skin Start: 06/02/20 18:24 Freq: Status: Active Protocol: Document 06/03/20 09:46 LRN (Rec: 06/03/20 14:51 LRN [id number]) Posture Evaluation Position Standing Head/C-Spine Posture Forward Head L-Spine Posture Flattened Pelvis Posture Posterior Tilted Hip Posture (L) Flexed,(R) Flexed Palpation Assessment Location L TFL Palpation Location TFL Muscle belly Palpation Findings Tenderness L lateral hip Palpation Location Greater trochanter Palpation Findings Tenderness PT-OP-K Range of Motion Start: 06/02/20 18:24 Freq: Status: Active Protocol: Document 06/08/20 14:27 LRN (Rec: 06/08/20 15:30 LRN [id number]) Lumbar Spine Range of Motion Lumbar Spine Active Degrees Testing Position Standing Flexion 7 Extension 5 Lateral Flexion Left 10 Lateral Flexion Right 15 Comments Trunk flex: 5 hip flex Trunk ext: 5 hip ext PT-OP-L Special Tests Start: 06/02/20 18:24 Freq: Status: Active Protocol: Document 06/03/20 09:46 LRN (Rec: 06/03/20 14:51 LRN [id number]) Special Tests Lumbar Spine Special Tests Straight Leg Raise Test Results Neg bilaterally Comments Hamstring tightness Hip Special Tests AILEEN Test Results + R for anterior groin pain Comments Indicates 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 Indicates possible SIJ dysfunction. PT-OP-M Strength Start: 06/02/20 18:24 Freq: Status: Active Protocol: Document 06/03/20 09:46 LRN (Rec: 06/03/20 14:51 LRN [id number]) Hip Strength Hip Manual Muscle Testing Right Flexion (L2) 5 Normal Abduction 4 Good Adduction 2 Poor Left Flexion (L2) 5 Normal Abduction 2+ Poor+ Adduction 1 Trace Knee Strength Knee Manual Muscle Testing Right Flexion (S2) 5 Normal Extension (L3) 5 Normal Left Flexion (S2) 5 Normal Extension (L3) 5 Normal Ankle/Foot Strength Ankle and Foot Manual Muscle Testing Right Comments All tests 5/5 Left Comments All tests 5/5 PT-OP-Q Treatments Start: 06/02/20 18:24 Freq: Status: Active Protocol: Document 06/15/20 09:01 (Rec: 06/15/20 09:53 [id number]) Therapeutic Exercises Supine Exercises pelvic tilt Supine Exercise Name PPT Side bilateral Reps/Minutes 8 x2 Comments pt c/o weakness and discomfort towards last 2-3 reps unilateral leg press Supine Exercise Name against PT Side left Reps/Minutes 8 x 2 Comments pt was able to reach neutral hip extension with minimal discomfort after supine hip ER Side bilateral Equipment Used yellow band Reps/Minutes 8 x2 TA Supine Exercise Name with supine hip ER + PPT Side bilateral Reps/Minutes 5 x2 Standing Exercises pelvic tilt Side bilateral Reps/Minutes 2 mins Comments no discomfort noted Manual Therapy Treatment Soft Tissue Mobilization glutes and piriformis Mobilization Type Sustained Pressure,Trigger Point Release Intensity/Depth Moderate Body Position Sidelying Comments radiating pain down to L calf upon pressure Joint Mobilizations hip distraction Grade III Body Position Supine Reps/Duration 8 sec x5 Comments pt felt relief with distraciton PT-OP-T Assessment and Plan Start: 06/02/20 18:24 Freq: Status: Active Protocol: Document 06/15/20 09:01 (Rec: 06/15/20 09:53 [id number]) Physical Therapy Assessment Goals Four Impairment Decreased L hip strength (AB 2 +/5, AD 1/5) Short Term Goal (STG) Pt will be able to move in bed with tolerable pain. STG Duration 07/16/20 Penitentiary Goal (LTG) Pt will be able to ambulate stairs and level ground with confidence to return to dog walking with his . LTG Duration 10/01/20 Three Impairment Decreased balance, loss of balance on initial standing and after 5'. Short Term Goal (STG) Pt will be able to transfer sit to stand without fear of losing his balance, and decreased TUG score to 19 sec' s. STG Duration 07/16/20 Penitentiary Goal (LTG) Decrease TUG time to 13-14 sec 's with pt able to stand > 5' without fear of loss of balance. LTG Duration 10/01/20 Two Impairment LLE pain from hip to foot rated 0-9/10, disturbing sleep . Short Term Goal (STG) Pt will reduce his need for Tylenol and will improve standing tolerance such that he will be able to exercise through an entire PT session. STG Duration 07/16/20 [employer]k [employer] Specialist Goal (LTG) Pt will be able to improve sleep duration to 6-8 hrs for the majority of the time. LTG Duration 10/01/20 One Impairment Lacks appropriate self care HEP. Bulk Gas Specialist Goal (LTG) Pt will be independent with a self care HEP. LTG Duration 10/01/20 (06/08/20: Progressing) Assessment Summary Assessment Pt came in with pain at 6/10 and amb with flexed hip and knees. Very TTP at piriformis and gluteal region but felt relieved after manual therapy and he was able to reach neutral for hip extension in supine. pain at 4/10 when he left. Physical Therapy Plan Next Visit Focus/Plan Next Note Type Treatment Note Next Visit Plan Initiate lumbar/pelvic stabilization & hip ROM (LE neural, L hip ER & AB stretch) ex's, check hip IR/ER strength and monitor SIJ dysfunction (Tests: log roll - found negative, Stinchfield, Distraction & Lateral compression, Thigh Thrust, Gaenslen). SIJ mob for possible downslip. Check for L innominate outflare & for a R anteriorly rotated innominate followed by pelvic/ core stabilization.
--- NOTE | 2020-06-21 16:37 | PT.OTN ---
Current Diagnoses Osteoarthritis of hip, unspecified (06/21/20) Other intervertebral disc displacement, lumbosacral region (06/21/20) Muscle weakness (generalized) (06/21/20) Unsteadiness on feet (06/21/20) Physical Therapy Treatment Note PT-OP-A Visit Information Start: 06/02/20 18:24 Freq: Status: Active Protocol: Document 06/21/20 09:09 LRN (Rec: 06/21/20 09:52 LRN [id number]) Out-Patient Physical Therapy Visit Information Visit Information Visit Type Treatment Note Visit Start Time 09:09 Visit Stop Time 09:51 Total Visit Minutes 42 Visit Number 4 Evaluation Information Evaluation Date 06/03/20 Precautions Precautions L knee has not been able to straighten for ~ 2 yrs. Current Dx (per history review ): Left herniated disc (L5-S1 ), Hip Osteoarthritis, Polymyalgia rheumatica, spondylosis of lumbar spine, and HTN. PT-OP-B Current Condition Start: 06/02/20 18:24 Freq: Status: Active Protocol: Document 06/03/20 09:46 LRN (Rec: 06/03/20 10:43 LRN [id number]) Current Condition History of Current Condition Onset Date 2.5 months Current Complaints L hip and leg pain, buttock to foot down lateral LE. History of Current Condition Pain onset insidious. States he has disc problems in the back and it was thought he had a pinched nerve. The injection provided relief for 1.5 days. Now he feels he is getting progressively worse. Getting up in the morning pain is 8-10/10 and lessens during the day to 3-4/10. After sitting for awhile (1 hr) after walking to the kitchen his pain increases. By bedtime pain is 6-10/10. Sleeps 4-5 hrs and then must get up due to the pain. Not able to take pain pills due to bowel problems. Takes Tylenol nightly and upon waking to help control the pain. Prior Treatments and Tests Dr. Bowen gave him a shot in the back and a week lateral to hip. Pain was a little better after the injections. Pain changed from 10 to 4. Future Testing and Treatments Planned Dr. Bowen follow up in July. Treatment Goals Patient/Caregiver Goals Pt goals: Walk dog with . Decrease pain to sleep 6-8 hrs peacefully without use of Tylenol. Decrease use of Tylenol for sleep. Prior Functional Status Baseline Function- ADL's Independent Baseline Function- Mobility Independent Baseline Function- Gait Pt able to walk without difficulty. Baseline Function- Other Not able to walk with to walk dog due to feeling of leg giving way. Able to sleep 6-8 hours per night. Current Functional Impairments (Reported) Functional Limitations- Mobility/Gait Pain with walking, not steady. Functional Limitations- Recreation/ Walked with to walk dog 1 Hobb[address] mile. 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 L knee has not been able to straighten for ~ 2 yrs. Current Dx (per history review ): Left herniated disc (L5-S1 ), Hip Osteoarthritis, Polymyalgia rheumatica, spondylosis of lumbar spine, and HTN. PT-OP-C Subjective Start: 06/02/20 18:24 Freq: Status: Active Protocol: Document 06/21/20 09:09 LRN (Rec: 06/21/20 09:52 LRN [id number]) OP-PT Subjective Patient Comments Patient Comments States last treatment was helpful for a day or two. Pain down L leg rated 7-8/10, s/p therapy pain was 3-4/10. PT-OP-D Balance Start: 06/02/20 18:24 Freq: Status: Active Protocol: Document 06/03/20 09:46 LRN (Rec: 06/03/20 16:33 LRN [id number]) OP-PT Balance Assessment Standing Balance Static Standing Balance Ability Poor Dynamic Standing Balance Ability Fair Standing Balance Comments Pt has loss of balance on initial standing, using plinth to stabilized at legs and snowden as standing time increases. Pt did not tolerate static standing for > 5' before pain in LLE caused him to request sitting. Alba Fall Scale Copyright Permission PT-OP-E Functional Tests Start: 06/02/20 18:24 Freq: Status: Active Protocol: Document 06/03/20 09:46 LRN (Rec: 06/03/20 14:51 LRN [id number]) Functional Tests Timed Up and Go (TUG) Score 24 TUG Impairment Rating 100% Impaired (Score 20) PT-OP-G Mobility & Gait Start: 06/02/20 18:24 Freq: Status: Active Protocol: Document 06/03/20 09:46 LRN (Rec: 06/03/20 14:51 LRN [id number]) OP Gait Assessment Gait Gait Assistance Required: Standby Assistance Distance (Feet) 60 Able to Maintain Weight Bearing Status Yes During Gait Assistive Devices Assistive Device None Gait Deviations General Gait Pattern Decreased Stride Length, Decreased Feet Clearance, Flexed Trunk,Wide Based Gait Factors Limiting Gait Function Factors Limiting Gait Function Decreased Activity Tolerance, Decreased Strength,Pain,Poor Balance PT-OP-H Neuro Start: 06/02/20 18:24 Freq: Status: Active Protocol: Document 06/03/20 09:46 LRN (Rec: 06/03/20 14:51 LRN [id number]) Sensation Evaluation Gross Sensation Gross Sensation Left LE Impaired Sensation Description Numbness,Pain Dermatome Impairments L4,L5,S1 Deep Tendon Reflex & Clonus Assessment Deep Tendon Reflex Left Achilles Deep Tendon Reflex 0 Absent Bilateral Patellar Deep Tendon Reflex 1+ Diminished PT-OP-J Posture/Palpation/Skin Start: 06/02/20 18:24 Freq: Status: Active Protocol: Document 06/03/20 09:46 LRN (Rec: 06/03/20 14:51 LRN [id number]) Posture Evaluation Position Standing Head/C-Spine Posture Forward Head L-Spine Posture Flattened Pelvis Posture Posterior Tilted Hip Posture (L) Flexed,(R) Flexed Palpation Assessment Location L TFL Palpation Location TFL Muscle belly Palpation Findings Tenderness L lateral hip Palpation Location Greater trochanter Palpation Findings Tenderness PT-OP-K Range of Motion Start: 06/02/20 18:24 Freq: Status: Active Protocol: Document 06/08/20 14:27 LRN (Rec: 06/08/20 15:30 LRN [id number]) Lumbar Spine Range of Motion Lumbar Spine Active Degrees Testing Position Standing Flexion 7 Extension 5 Lateral Flexion Left 10 Lateral Flexion Right 15 Comments Trunk flex: 5 hip flex Trunk ext: 5 hip ext PT-OP-L Special Tests Start: 06/02/20 18:24 Freq: Status: Active Protocol: Document 06/03/20 09:46 LRN (Rec: 06/03/20 14:51 LRN [id number]) Special Tests Lumbar Spine Special Tests Straight Leg Raise Test Results Neg bilaterally Comments Hamstring tightness Hip Special Tests AILEEN Test Results + R for anterior groin pain Comments Indicates 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 Indicates possible SIJ dysfunction. PT-OP-M Strength Start: 06/02/20 18:24 Freq: Status: Active Protocol: Document 06/03/20 09:46 LRN (Rec: 06/03/20 14:51 LRN [id number]) Hip Strength Hip Manual Muscle Testing Right Flexion (L2) 5 Normal Abduction 4 Good Adduction 2 Poor Left Flexion (L2) 5 Normal Abduction 2+ Poor+ Adduction 1 Trace Knee Strength Knee Manual Muscle Testing Right Flexion (S2) 5 Normal Extension (L3) 5 Normal Left Flexion (S2) 5 Normal Extension (L3) 5 Normal Ankle/Foot Strength Ankle and Foot Manual Muscle Testing Right Comments All tests 5/5 Left Comments All tests 5/5 PT-OP-Q Treatments Start: 06/02/20 18:24 Freq: Status: Active Protocol: Document 06/21/20 09:09 LRN (Rec: 06/21/20 09:52 LRN [id number]) Therapeutic Exercises Supine Exercises DKTC stretch Supine Exercise Name DKTC stretch Reps/Minutes 10 hold x 6 Bridge Supine Exercise Name Bridge Side bilateral Reps/Minutes 6x Comments Determined throughout ex, max lift of hips to prevent working into pain. Knee Squeeze Supine Exercise Name Knee squeeze on ball Side bilateral Reps/Minutes 6 Hold x 6 pelvic tilt Supine Exercise Name PPT Side bilateral Reps/Minutes Hold 10 8 x2 unilateral leg press Side left Manual Therapy Treatment Soft Tissue Mobilization L TFL Body Location L TFL Mobilization Type Strumming,Sustained Pressure Intensity/Depth Moderate Body Position Sidelying glutes and piriformis Mobilization Type Sustained Pressure,Trigger Point Release Intensity/Depth Moderate Body Position Sidelying Comments radiating pain down to L calf upon pressure Joint Mobilizations Posterior rot L innominate Body Position Supine L SIJ Joint L SIJ Direction Correction for an anteriorly rotated innominate. Body Position Supine R SIJ Joint R SIJ Direction Correction for a posteriorly rotated innominate. Self-Care/Home Management Treatment Education Patient Education Home Exercise Program Activities Self-Care/Home Management Activities Issued & revewed HEP: Self- SIJ dysfunction correction for an anteriorly rot LLE/ posteriorly rotated RLE. PT-OP-T Assessment and Plan Start: 06/02/20 18:24 Freq: Status: Active Protocol: Document 06/21/20 09:09 LRN (Rec: 06/21/20 09:52 LRN [id number]) Physical Therapy Assessment Goals Four Impairment Decreased L hip strength (AB 2 +/5, AD 1/5) Short Term Goal (STG) Pt will be able to move in bed with tolerable pain. STG Duration 07/16/20 Gastroenterology Nurse Goal (LTG) Pt will be able to ambulate stairs and level ground with confidence to return to dog walking with his . LTG Duration 10/01/20 Three Impairment Decreased balance, loss of balance on initial standing and after 5'. Short Term Goal (STG) Pt will be able to transfer sit to stand without fear of losing his balance, and decreased TUG score to 19 sec' s. STG Duration 07/16/20 Gastroenterology Nurse Goal (LTG) Decrease TUG time to 13-14 sec 's with pt able to stand > 5' without fear of loss of balance. LTG Duration 10/01/20 Two Impairment LLE pain from hip to foot rated 0-9/10, disturbing sleep . Short Term Goal (STG) Pt will reduce his need for Tylenol and will improve standing tolerance such that he will be able to exercise through an entire PT session. STG Duration 07/16/20 (06/21/20: Progressing) Halfway Goal (LTG) Pt will be able to improve sleep duration to 6-8 hrs for the majority of the time. LTG Duration 10/01/20 One Impairment Lacks appropriate self care HEP. Gastroenterology Nurse Goal (LTG) Pt will be independent with a self care HEP. LTG Duration 10/01/20 (06/08/20: Progressing) Progress Towards Goals Progress Comments Pain in the L LE decreased from 7-8/10 to 3-4/10 after treatment. Assessment Summary Assessment Unstable SIJ's. To start: L leg long, L innominate outflare, anteriorly rotated ( R inflare & posteriorly rotated). LLE Pain at start of therapy 7-8/10, ending pain 3-4/10, and posture was upright. Initially pt symptoms were possible downslip and anter rot on right; therefore pt appears to have switched rotation of innominate and possible downslip still on R, although no change with manual mob today. Pt was able to lie with legs straight and appeared to be level and symmetrical at end of therapy with pain in L hip decreased. Physical Therapy Plan Frequency and Duration Frequency of Treatment 2x/Week Plan of Care Start Date 06/03/20 Plan of Care End Date 10/01/20 Next Visit Focus/Plan Next Note Type Treatment Note Next Visit Plan Correct SIJ dysfunction of flare/rotation (see assessment ), progress lumbar/pelvic stabilization, initiate HEP: hip ROM (LE neural, L hip ER & AB stretch) ex's, check hip IR/ER strength (Tests: log roll - found negative, check: Stinchfield, Distraction & Lateral compression, Thigh Thrust, Gaenslen). SIJ mob for possible R downslip.
--- NOTE | 2020-07-01 11:23 | PT.OTN ---
Current Diagnoses Osteoarthritis of hip, unspecified (07/01/20) Other intervertebral disc displacement, lumbosacral region (07/01/20) Muscle weakness (generalized) (07/01/20) Unsteadiness on feet (07/01/20) Physical Therapy Treatment Note PT-OP-A Visit Information Start: 06/02/20 18:24 Freq: Status: Active Protocol: Document 07/01/20 09:10 LRN (Rec: 07/01/20 09:51 LRN [id number]) Out-Patient Physical Therapy Visit Information Visit Information Visit Type Treatment Note Visit Start Time 09:10 Visit Stop Time 09:49 Total Visit Minutes 39 Visit Number 5 Evaluation Information Evaluation Date 06/03/20 Precautions Precautions L knee has not been able to straighten for ~ 2 yrs. Current Dx (per history review ): Left herniated disc (L5-S1 ), Hip Osteoarthritis, Polymyalgia rheumatica, spondylosis of lumbar spine, and HTN. PT-OP-B Current Condition Start: 06/02/20 18:24 Freq: Status: Active Protocol: Document 06/03/20 09:46 LRN (Rec: 06/03/20 10:43 LRN [id number]) Current Condition History of Current Condition Onset Date 2.5 months Current Complaints L hip and leg pain, buttock to foot down lateral LE. History of Current Condition Pain onset insidious. States he has disc problems in the back and it was thought he had a pinched nerve. The injection provided relief for 1.5 days. Now he feels he is getting progressively worse. Getting up in the morning pain is 8-10/10 and lessens during the day to 3-4/10. After sitting for awhile (1 hr) after walking to the kitchen his pain increases. By bedtime pain is 6-10/10. Sleeps 4-5 hrs and then must get up due to the pain. Not able to take pain pills due to bowel problems. Takes Tylenol nightly and upon waking to help control the pain. Prior Treatments and Tests Dr. Bowen gave him a shot in the back and a week lateral to hip. Pain was a little better after the injections. Pain changed from 10 to 4. Future Testing and Treatments Planned Dr. Bowen follow up in July. Treatment Goals Patient/Caregiver Goals Pt goals: Walk dog with . Decrease pain to sleep 6-8 hrs peacefully without use of Tylenol. Decrease use of Tylenol for sleep. Prior Functional Status Baseline Function- ADL's Independent Baseline Function- Mobility Independent Baseline Function- Gait Pt able to walk without difficulty. Baseline Function- Other Not able to walk with to walk dog due to feeling of leg giving way. Able to sleep 6-8 hours per night. Current Functional Impairments (Reported) Functional Limitations- Mobility/Gait Pain with walking, not steady. Functional Limitations- Recreation/ Walked with to walk dog 1 Hobbies mile. 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 L knee has not been able to straighten for ~ 2 yrs. Current Dx (per history review ): Left herniated disc (L5-S1 ), Hip Osteoarthritis, Polymyalgia rheumatica, spondylosis of lumbar spine, and HTN. PT-OP-C Subjective Start: 06/02/20 18:24 Freq: Status: Active Protocol: Document 07/01/20 09:10 LRN (Rec: 07/01/20 09:51 LRN [id number]) OP-PT Subjective Patient Comments Patient Comments Hasn't had a really good week, some days didn't do too good. Posture is better. Not much pain this morning, 01/29. Patient Reported Progress Improving PT-OP-D Balance Start: 06/02/20 18:24 Freq: Status: Active Protocol: Document 06/03/20 09:46 LRN (Rec: 06/03/20 16:33 LRN [id number]) OP-PT Balance Assessment Standing Balance Static Standing Balance Ability Poor Dynamic Standing Balance Ability Fair Standing Balance Comments Pt has loss of balance on initial standing, using plinth to stabilized at legs and snowden as standing time increases. Pt did not tolerate static standing for > 5' before pain in LLE caused him to request sitting. Alba Fall Scale Copyright Permission PT-OP-E Functional Tests Start: 06/02/20 18:24 Freq: Status: Active Protocol: Document 06/03/20 09:46 LRN (Rec: 06/03/20 14:51 LRN [id number]) Functional Tests Timed Up and Go (TUG) Score 24 TUG Impairment Rating 100% Impaired (Score 20) PT-OP-G Mobility & Gait Start: 06/02/20 18:24 Freq: Status: Active Protocol: Document 06/03/20 09:46 LRN (Rec: 06/03/20 14:51 LRN [id number]) OP Gait Assessment Gait Gait Assistance Required: Standby Assistance Distance (Feet) 60 Able to Maintain Weight Bearing Status Yes During Gait Assistive Devices Assistive Device None Gait Deviations General Gait Pattern Decreased Stride Length, Decreased Feet Clearance, Flexed Trunk,Wide Based Gait Factors Limiting Gait Function Factors Limiting Gait Function Decreased Activity Tolerance, Decreased Strength,Pain,Poor Balance PT-OP-H Neuro Start: 06/02/20 18:24 Freq: Status: Active Protocol: Document 06/03/20 09:46 LRN (Rec: 06/03/20 14:51 LRN [id number]) Sensation Evaluation Gross Sensation Gross Sensation Left LE Impaired Sensation Description Numbness,Pain Dermatome Impairments L4,L5,S1 Deep Tendon Reflex & Clonus Assessment Deep Tendon Reflex Left Achilles Deep Tendon Reflex 0 Absent Bilateral Patellar Deep Tendon Reflex 1+ Diminished PT-OP-J Posture/Palpation/Skin Start: 06/02/20 18:24 Freq: Status: Active Protocol: Document 06/03/20 09:46 LRN (Rec: 06/03/20 14:51 LRN [id number]) Posture Evaluation Position Standing Head/C-Spine Posture Forward Head L-Spine Posture Flattened Pelvis Posture Posterior Tilted Hip Posture (L) Flexed,(R) Flexed Palpation Assessment Location L TFL Palpation Location TFL Muscle belly Palpation Findings Tenderness L lateral hip Palpation Location Greater trochanter Palpation Findings Tenderness PT-OP-K Range of Motion Start: 06/02/20 18:24 Freq: Status: Active Protocol: Document 06/08/20 14:27 LRN (Rec: 06/08/20 15:30 LRN [id number]) Lumbar Spine Range of Motion Lumbar Spine Active Degrees Testing Position Standing Flexion 7 Extension 5 Lateral Flexion Left 10 Lateral Flexion Right 15 Comments Trunk flex: 5 hip flex Trunk ext: 5 hip ext PT-OP-L Special Tests Start: 06/02/20 18:24 Freq: Status: Active Protocol: Document 06/03/20 09:46 LRN (Rec: 06/03/20 14:51 LRN [id number]) Special Tests Lumbar Spine Special Tests Straight Leg Raise Test Results Neg bilaterally Comments Hamstring tightness Hip Special Tests AILEEN Test Results + R for anterior groin pain Comments Indicates 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 Indicates possible SIJ dysfunction. PT-OP-M Strength Start: 06/02/20 18:24 Freq: Status: Active Protocol: Document 06/03/20 09:46 LRN (Rec: 06/03/20 14:51 LRN [id number]) Hip Strength Hip Manual Muscle Testing Right Flexion (L2) 5 Normal Abduction 4 Good Adduction 2 Poor Left Flexion (L2) 5 Normal Abduction 2+ Poor+ Adduction 1 Trace Knee Strength Knee Manual Muscle Testing Right Flexion (S2) 5 Normal Extension (L3) 5 Normal Left Flexion (S2) 5 Normal Extension (L3) 5 Normal Ankle/Foot Strength Ankle and Foot Manual Muscle Testing Right Comments All tests 5/5 Left Comments All tests 5/5 PT-OP-Q Treatments Start: 06/02/20 18:24 Freq: Status: Active Protocol: Document 07/01/20 09:10 LRN (Rec: 07/01/20 09:51 LRN [id number]) Therapeutic Exercises Supine Exercises BKFO stretch Supine Exercise Name BKFO Side bilateral Equipment Used Dowel across ASIS' Reps/Minutes 3' Comments Pt initially L LE rotation much > R, controlled by towel roll Passive knee ext stretch Supine Exercise Name Full knee ext passive stretch Side bilateral Equipment Used Towel roll to prop L leg to prevent hip ER Reps/Minutes 3' DKTC stretch Supine Exercise Name DKTC stretch Reps/Minutes 10 hold x 6 Comments Pt needed phy assist to get knees to chest. Bridge Supine Exercise Name Bridge Side bilateral Reps/Minutes 10x Comments Xtra time training to do properly TA Supine Exercise Name TA w/PF, legs straight, feet almost neutral Reps/Minutes 10 x 12 Comments Extra time to train for proper neutral positioning during tightening. Therapeutic Activity Therapeutic Activity Sit <-> Supine Name Sit <-> Supine training w/TA contraction Reps/Minutes 2' Comments Pt needed extensive physical and verbal cuing. Manual Therapy Treatment Soft Tissue Mobilization L knee lateral tendons Body Location L lateral hamstring and gastroc Mobilization Type Strumming,Trigger Point Release Intensity/Depth Moderate Body Position Supine Comments Towel roll supporting leg to prevent ER. Joint Mobilizations L Innominate Joint Correcting a L outflare Direction MET Comments Corrected leg length. L SIJ Joint L SIJ Direction Correction for an anteriorly rotated innominate. Body Position Supine R SIJ Joint R SIJ Direction Correction for a posteriorly rotated innominate. Self-Care/Home Management Treatment Education Patient Education Home Exercise Program Other Education Discussed core stabilization during ADL (ex transfers) and with gait, etc... Activities Self-Care/Home Management Activities Issued & reviewed HEP: BKFO stretch to hips. PT-OP-T Assessment and Plan Start: 06/02/20 18:24 Freq: Status: Active Protocol: Document 07/01/20 09:10 LRN (Rec: 07/01/20 09:51 LRN [id number]) Physical Therapy Assessment Goals Four Impairment Decreased L hip strength (AB 2 +/5, AD 1/5) Short Term Goal (STG) Pt will be able to move in bed with tolerable pain. STG Duration 07/16/20 [facility] Goal (LTG) Pt will be able to ambulate stairs and level ground with confidence to return to dog walking with his . LTG Duration 10/01/20 Three Impairment Decreased balance, loss of balance on initial standing and after 5'. Short Term Goal (STG) Pt will be able to transfer sit to stand without fear of losing his balance, and decreased TUG score to 19 sec' s. STG Duration 07/16/20 Dining Service Supervisor Goal (LTG) Decrease TUG time to 13-14 sec 's with pt able to stand > 5' without fear of loss of balance. LTG Duration 10/01/20 Two Impairment LLE pain from hip to foot rated 0-9/10, disturbing sleep . Short Term Goal (STG) Pt will reduce his need for Tylenol and will improve standing tolerance such that he will be able to exercise through an entire PT session. STG Duration 07/16/20 (06/21/20: Progressing) [facility] Goal (LTG) Pt will be able to improve sleep duration to 6-8 hrs for the majority of the time. LTG Duration 10/01/20 One Impairment Lacks appropriate self care HEP. Dining Service Supervisor Goal (LTG) Pt will be independent with a self care HEP. LTG Duration 10/01/20 (07/01/20: Progressing) Progress Towards Goals Progress Comments L leg pain to start 4/10, pain at end of therapy 0/10. Assessment Summary Assessment Reviewed previous HEP, but pt had poor understanding and poor consistance with exercise . Corrected pelvic assymmetry with treatment for rot, and final symmetry through L outflare mob correction. Pt problem may be more of L outflare due to LE positioning in ER most of the time; therefore will need to stretch out L hip ER's in addition to hip AD's and stabilize sacrum /pelvis/core. Pt is standing with much improved upright posture. Physical Therapy Plan Frequency and Duration Frequency of Treatment 2x/Week Plan of Care Start Date 06/03/20 Plan of Care End Date 10/01/20 Next Visit Focus/Plan Next Note Type Treatment Note Next Visit Plan Correct SIJ dysfunction of flare/rotation (see assessment ), progress lumbar/pelvic stabilization, initiate HEP: hip ROM (LE neural, L hip AB stretch) ex's, check hip IR/ER strength (Tests: log roll - found negative, check: Stinchfield, Distraction & Lateral compression, Thigh Thrust, Gaenslen). SIJ mob for possible R downslip.
--- NOTE | 2020-07-05 11:04 | PT.OTN ---
Current Diagnoses Osteoarthritis of hip, unspecified (07/05/20) Other intervertebral disc displacement, lumbosacral region (07/05/20) Muscle weakness (generalized) (07/05/20) Unsteadiness on feet (07/05/20) Physical Therapy Treatment Note PT-OP-A Visit Information Start: 06/02/20 18:24 Freq: Status: Active Protocol: Document 07/05/20 09:07 LRN (Rec: 07/05/20 09:47 LRN [id number]) Out-Patient Physical Therapy Visit Information Visit Information Visit Type Treatment Note Visit Start Time 09:07 Visit Stop Time 09:46 Total Visit Minutes 39 Visit Number 6 Evaluation Information Evaluation Date 06/03/20 Precautions Precautions L knee has not been able to straighten for ~ 2 yrs. Current Dx (per history review ): Left herniated disc (L5-S1 ), Hip Osteoarthritis, Polymyalgia rheumatica, spondylosis of lumbar spine, and HTN. PT-OP-B Current Condition Start: 06/02/20 18:24 Freq: Status: Active Protocol: Document 06/03/20 09:46 LRN (Rec: 06/03/20 10:43 LRN [id number]) Current Condition History of Current Condition Onset Date 2.5 months Current Complaints L hip and leg pain, buttock to foot down lateral LE. History of Current Condition Pain onset insidious. States he has disc problems in the back and it was thought he had a pinched nerve. The injection provided relief for 1.5 days. Now he feels he is getting progressively worse. Getting up in the morning pain is 8-10/10 and lessens during the day to 3-4/10. After sitting for awhile (1 hr) after walking to the kitchen his pain increases. By bedtime pain is 6-10/10. Sleeps 4-5 hrs and then must get up due to the pain. Not able to take pain pills due to bowel problems. Takes Tylenol nightly and upon waking to help control the pain. Prior Treatments and Tests Dr. Bowen gave him a shot in the back and a week lateral to hip. Pain was a little better after the injections. Pain changed from 10 to 4. Future Testing and Treatments Planned Dr. Bowen follow up in July. Treatment Goals Patient/Caregiver Goals Pt goals: Walk dog with . Decrease pain to sleep 6-8 hrs peacefully without use of Tylenol. Decrease use of Tylenol for sleep. Prior Functional Status Baseline Function- ADL's Independent Baseline Function- Mobility Independent Baseline Function- Gait Pt able to walk without difficulty. Baseline Function- Other Not able to walk with to walk dog due to feeling of leg giving way. Able to sleep 6-8 hours per night. Current Functional Impairments (Reported) Functional Limitations- Mobility/Gait Pain with walking, not steady. Functional Limitations- Recreation/ Walked with to walk dog 1 Hobbies mile. 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 L knee has not been able to straighten for ~ 2 yrs. Current Dx (per history review ): Left herniated disc (L5-S1 ), Hip Osteoarthritis, Polymyalgia rheumatica, spondylosis of lumbar spine, and HTN. PT-OP-C Subjective Start: 06/02/20 18:24 Freq: Status: Active Protocol: Document 07/05/20 09:07 LRN (Rec: 07/05/20 09:47 LRN [id number]) OP-PT Subjective Patient Comments Patient Comments States he is bad this morning, but not as bad as it can be. Sleeps on R side, doesn't let L leg hang in front of the other. Pain is in the lateral hip, 7/10.. PT-OP-D Balance Start: 06/02/20 18:24 Freq: Status: Active Protocol: Document 06/03/20 09:46 LRN (Rec: 06/03/20 16:33 LRN [id number]) OP-PT Balance Assessment Standing Balance Static Standing Balance Ability Poor Dynamic Standing Balance Ability Fair Standing Balance Comments Pt has loss of balance on initial standing, using plinth to stabilized at legs and snowden as standing time increases. Pt did not tolerate static standing for > 5' before pain in LLE caused him to request sitting. Alba Fall Scale Copyright Permission PT-OP-E Functional Tests Start: 06/02/20 18:24 Freq: Status: Active Protocol: Document 06/03/20 09:46 LRN (Rec: 06/03/20 14:51 LRN [id number]) Functional Tests Timed Up and Go (TUG) Score 24 TUG Impairment Rating 100% Impaired (Score 20) PT-OP-G Mobility & Gait Start: 06/02/20 18:24 Freq: Status: Active Protocol: Document 06/03/20 09:46 LRN (Rec: 06/03/20 14:51 LRN [id number]) OP Gait Assessment Gait Gait Assistance Required: Standby Assistance Distance (Feet) 60 Able to Maintain Weight Bearing Status Yes During Gait Assistive Devices Assistive Device None Gait Deviations General Gait Pattern Decreased Stride Length, Decreased Feet Clearance, Flexed Trunk,Wide Based Gait Factors Limiting Gait Function Factors Limiting Gait Function Decreased Activity Tolerance, Decreased Strength,Pain,Poor Balance PT-OP-H Neuro Start: 06/02/20 18:24 Freq: Status: Active Protocol: Document 06/03/20 09:46 LRN (Rec: 06/03/20 14:51 LRN [id number]) Sensation Evaluation Gross Sensation Gross Sensation Left LE Impaired Sensation Description Numbness,Pain Dermatome Impairments L4,L5,S1 Deep Tendon Reflex & Clonus Assessment Deep Tendon Reflex Left Achilles Deep Tendon Reflex 0 Absent Bilateral Patellar Deep Tendon Reflex 1+ Diminished PT-OP-J Posture/Palpation/Skin Start: 06/02/20 18:24 Freq: Status: Active Protocol: Document 06/03/20 09:46 LRN (Rec: 06/03/20 14:51 LRN [id number]) Posture Evaluation Position Standing Head/C-Spine Posture Forward Head L-Spine Posture Flattened Pelvis Posture Posterior Tilted Hip Posture (L) Flexed,(R) Flexed Palpation Assessment Location L TFL Palpation Location TFL Muscle belly Palpation Findings Tenderness L lateral hip Palpation Location Greater trochanter Palpation Findings Tenderness PT-OP-K Range of Motion Start: 06/02/20 18:24 Freq: Status: Active Protocol: Document 06/08/20 14:27 LRN (Rec: 06/08/20 15:30 LRN [id number]) Lumbar Spine Range of Motion Lumbar Spine Active Degrees Testing Position Standing Flexion 7 Extension 5 Lateral Flexion Left 10 Lateral Flexion Right 15 Comments Trunk flex: 5 hip flex Trunk ext: 5 hip ext PT-OP-L Special Tests Start: 06/02/20 18:24 Freq: Status: Active Protocol: Document 06/03/20 09:46 LRN (Rec: 06/03/20 14:51 LRN [id number]) Special Tests Lumbar Spine Special Tests Straight Leg Raise Test Results Neg bilaterally Comments Hamstring tightness Hip Special Tests AILEEN Test Results + R for anterior groin pain Comments Indicates 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 Indicates possible SIJ dysfunction. PT-OP-M Strength Start: 06/02/20 18:24 Freq: Status: Active Protocol: Document 06/03/20 09:46 LRN (Rec: 06/03/20 14:51 LRN [id number]) Hip Strength Hip Manual Muscle Testing Right Flexion (L2) 5 Normal Abduction 4 Good Adduction 2 Poor Left Flexion (L2) 5 Normal Abduction 2+ Poor+ Adduction 1 Trace Knee Strength Knee Manual Muscle Testing Right Flexion (S2) 5 Normal Extension (L3) 5 Normal Left Flexion (S2) 5 Normal Extension (L3) 5 Normal Ankle/Foot Strength Ankle and Foot Manual Muscle Testing Right Comments All tests 5/5 Left Comments All tests 5/5 PT-OP-Q Treatments Start: 06/02/20 18:24 Freq: Status: Active Protocol: Document 07/05/20 09:07 LRN (Rec: 07/05/20 09:47 LRN [id number]) Therapeutic Exercises Supine Exercises BKFO stretch Supine Exercise Name BKFO Side bilateral Equipment Used Dowel across ASIS' Reps/Minutes 3' Comments Pt initially L LE rotation much > R, controlled by towel roll DKTC stretch Supine Exercise Name DKTC stretch Reps/Minutes 10 hold x 6 Comments Pt needed phy assist to get knees to chest. Bridge Supine Exercise Name Bridge Side bilateral Reps/Minutes 10x Comments Xtra time training to do properly Knee Squeeze Supine Exercise Name Knee squeeze on ball Side bilateral Reps/Minutes 6 Hold x 3 supine hip ER Supine Exercise Name Hip ER stretch Side bilateral Reps/Minutes 2' Comments Having lateral L leg pain Prone Exercises TA for Neutral stab Prone Exercise Name TA for neutral stab training before rolling Reps/Minutes 2' Manual Therapy Treatment Soft Tissue Mobilization L knee lateral tendons Body Location L lateral hamstring and gastroc Mobilization Type Strumming,Trigger Point Release Intensity/Depth Moderate Body Position Supine Comments Towel roll supporting leg to prevent ER. L TFL Body Location L TFL Mobilization Type Strumming,Sustained Pressure Intensity/Depth Moderate Body Position Sidelying glutes and piriformis Mobilization Type Sustained Pressure,Trigger Point Release Intensity/Depth Moderate Body Position Sidelying Comments radiating pain down to L calf upon pressure Joint Mobilizations L SIJ Joint Correction for L Outflare Reps/Duration 2' R SIJ Joint Correction for R Inflare Reps/Duration 2' PT-OP-T Assessment and Plan Start: 06/02/20 18:24 Freq: Status: Active Protocol: Document 07/05/20 09:07 LRN (Rec: 07/05/20 09:47 LRN [id number]) Physical Therapy Assessment Goals Four Impairment Decreased L hip strength (AB 2 +/5, AD 1/5) Short Term Goal (STG) Pt will be able to move in bed with tolerable pain. STG Duration 07/16/20 Mild Disabilities Teacher Goal (LTG) Pt will be able to ambulate stairs and level ground with confidence to return to dog walking with his . LTG Duration 10/01/20 Three Impairment Decreased balance, loss of balance on initial standing and after 5'. Short Term Goal (STG) Pt will be able to transfer sit to stand without fear of losing his balance, and decreased TUG score to 19 sec' s. STG Duration 07/16/20 Mild Disabilities Teacher Goal (LTG) Decrease TUG time to 13-14 sec 's with pt able to stand > 5' without fear of loss of balance. LTG Duration 10/01/20 Two Impairment LLE pain from hip to foot rated 0-9/10, disturbing sleep . Short Term Goal (STG) Pt will reduce his need for Tylenol and will improve standing tolerance such that he will be able to exercise through an entire PT session. STG Duration 07/16/20 (06/21/20: Progressing) Mild Disabilities Teacher Goal (LTG) Pt will be able to improve sleep duration to 6-8 hrs for the majority of the time. LTG Duration 10/01/20 One Impairment Lacks appropriate self care HEP. Alf Goal (LTG) Pt will be independent with a self care HEP. LTG Duration 10/01/20 (07/01/20: Progressing) Progress Towards Goals Progress Comments L lateral leg pain went from 7 /10 to 3/10 after therapy. Assessment Summary Assessment Pt dizzy upon sup to sit. Pain decreased with therapy. He tends to hold his L leg in IR with gait. Pt is painful in L hip with hip stretching. Physical Therapy Plan Frequency and Duration Frequency of Treatment 2x/Week Plan of Care Start Date 06/03/20 Plan of Care End Date 10/01/20 Next Visit Focus/Plan Next Note Type Treatment Note Next Visit Plan Correct SIJ dysfunction of flare/rotation (see assessment ), progress lumbar/pelvic stabilization, initiate HEP: hip ROM (LE neural, L hip AB stretch) ex's, check hip IR/ER strength (Tests: log roll - found negative, check: Stinchfield, Distraction & Lateral compression, Thigh Thrust, Gaenslen). SIJ mob for possible R downslip.
--- NOTE | 2020-07-08 13:50 | PT.OTN ---
Current Diagnoses Osteoarthritis of hip, unspecified (07/08/20) Other intervertebral disc displacement, lumbosacral region (07/08/20) Muscle weakness (generalized) (07/08/20) Unsteadiness on feet (07/08/20) Physical Therapy Treatment Note PT-OP-A Visit Information Start: 06/02/20 18:24 Freq: Status: Active Protocol: Document 07/08/20 09:07 LRN (Rec: 07/08/20 09:52 LRN [id number]) Out-Patient Physical Therapy Visit Information Visit Information Visit Start Time 09:07 Visit Stop Time 09:48 Total Visit Minutes 41 Visit Number 7 Evaluation Information Evaluation Date 06/03/20 Precautions Precautions L knee has not been able to straighten for ~ 2 yrs. Current Dx (per history review ): Left herniated disc (L5-S1 ), Hip Osteoarthritis, Polymyalgia rheumatica, spondylosis of lumbar spine, and HTN. PT-OP-B Current Condition Start: 06/02/20 18:24 Freq: Status: Active Protocol: Document 06/03/20 09:46 LRN (Rec: 06/03/20 10:43 LRN [id number]) Current Condition History of Current Condition Onset Date 2.5 months Current Complaints L hip and leg pain, buttock to foot down lateral LE. History of Current Condition Pain onset insidious. States he has disc problems in the back and it was thought he had a pinched nerve. The injection provided relief for 1.5 days. Now he feels he is getting progressively worse. Getting up in the morning pain is 8-10/10 and lessens during the day to 3-4/10. After sitting for awhile (1 hr) after walking to the kitchen his pain increases. By bedtime pain is 6-10/10. Sleeps 4-5 hrs and then must get up due to the pain. Not able to take pain pills due to bowel problems. Takes Tylenol nightly and upon waking to help control the pain. Prior Treatments and Tests Dr. Bowen gave him a shot in the back and a week lateral to hip. Pain was a little better after the injections. Pain changed from 10 to 4. Future Testing and Treatments Planned Dr. Bowen follow up in July. Treatment Goals Patient/Caregiver Goals Pt goals: Walk dog with . Decrease pain to sleep 6-8 hrs peacefully without use of Tylenol. Decrease use of Tylenol for sleep. Prior Functional Status Baseline Function- ADL's Independent Baseline Function- Mobility Independent Baseline Function- Gait Pt able to walk without difficulty. Baseline Function- Other Not able to walk with to walk dog due to feeling of leg giving way. Able to sleep 6-8 hours per night. Current Functional Impairments (Reported) Functional Limitations- Mobility/Gait Pain with walking, not steady. Functional Limitations- Recreation/ Walked with to walk dog 1 Hobbies mile. 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 L knee has not been able to straighten for ~ 2 yrs. Current Dx (per history review ): Left herniated disc (L5-S1 ), Hip Osteoarthritis, Polymyalgia rheumatica, spondylosis of lumbar spine, and HTN. PT-OP-C Subjective Start: 06/02/20 18:24 Freq: Status: Active Protocol: Document 07/08/20 09:07 LRN (Rec: 07/08/20 09:52 LRN [id number]) OP-PT Subjective Patient Comments Patient Comments States he was not too bad after last session and it lasted until yesterday afternoon, then he had a bad night sleeping. 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 Pain today 8/10, decreased to 4/10 after therapy. PT-OP-D Balance Start: 06/02/20 18:24 Freq: Status: Active Protocol: Document 06/03/20 09:46 LRN (Rec: 06/03/20 16:33 LRN [id number]) OP-PT Balance Assessment Standing Balance Static Standing Balance Ability Poor Dynamic Standing Balance Ability Fair Standing Balance Comments Pt has loss of balance on initial standing, using plinth to stabilized at legs and snowden as standing time increases. Pt did not tolerate static standing for > 5' before pain in LLE caused him to request sitting. Alba Fall Scale Copyright Permission PT-OP-E Functional Tests Start: 06/02/20 18:24 Freq: Status: Active Protocol: Document 06/03/20 09:46 LRN (Rec: 06/03/20 14:51 LRN [id number]) Functional Tests Timed Up and Go (TUG) Score 24 TUG Impairment Rating 100% Impaired (Score 20) PT-OP-G Mobility & Gait Start: 06/02/20 18:24 Freq: Status: Active Protocol: Document 06/03/20 09:46 LRN (Rec: 06/03/20 14:51 LRN [id number]) OP Gait Assessment Gait Gait Assistance Required: Standby Assistance Distance (Feet) 60 Able to Maintain Weight Bearing Status Yes During Gait Assistive Devices Assistive Device None Gait Deviations General Gait Pattern Decreased Stride Length, Decreased Feet Clearance, Flexed Trunk,Wide Based Gait Factors Limiting Gait Function Factors Limiting Gait Function Decreased Activity Tolerance, Decreased Strength,Pain,Poor Balance PT-OP-H Neuro Start: 06/02/20 18:24 Freq: Status: Active Protocol: Document 06/03/20 09:46 LRN (Rec: 06/03/20 14:51 LRN [id number]) Sensation Evaluation Gross Sensation Gross Sensation Left LE Impaired Sensation Description Numbness,Pain Dermatome Impairments L4,L5,S1 Deep Tendon Reflex & Clonus Assessment Deep Tendon Reflex Left Achilles Deep Tendon Reflex 0 Absent Bilateral Patellar Deep Tendon Reflex 1+ Diminished PT-OP-J Posture/Palpation/Skin Start: 06/02/20 18:24 Freq: Status: Active Protocol: Document 06/03/20 09:46 LRN (Rec: 06/03/20 14:51 LRN [id number]) Posture Evaluation Position Standing Head/C-Spine Posture Forward Head L-Spine Posture Flattened Pelvis Posture Posterior Tilted Hip Posture (L) Flexed,(R) Flexed Palpation Assessment Location L TFL Palpation Location TFL Muscle belly Palpation Findings Tenderness L lateral hip Palpation Location Greater trochanter Palpation Findings Tenderness PT-OP-K Range of Motion Start: 06/02/20 18:24 Freq: Status: Active Protocol: Document 06/08/20 14:27 LRN (Rec: 06/08/20 15:30 LRN [id number]) Lumbar Spine Range of Motion Lumbar Spine Active Degrees Testing Position Standing Flexion 7 Extension 5 Lateral Flexion Left 10 Lateral Flexion Right 15 Comments Trunk flex: 5 hip flex Trunk ext: 5 hip ext PT-OP-L Special Tests Start: 06/02/20 18:24 Freq: Status: Active Protocol: Document 06/03/20 09:46 LRN (Rec: 06/03/20 14:51 LRN [id number]) Special Tests Lumbar Spine Special Tests Straight Leg Raise Test Results Neg bilaterally Comments Hamstring tightness Hip Special Tests AILEEN Test Results + R for anterior groin pain Comments Indicates 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 Indicates possible SIJ dysfunction. PT-OP-M Strength Start: 06/02/20 18:24 Freq: Status: Active Protocol: Document 06/03/20 09:46 LRN (Rec: 06/03/20 14:51 LRN [id number]) Hip Strength Hip Manual Muscle Testing Right Flexion (L2) 5 Normal Abduction 4 Good Adduction 2 Poor Left Flexion (L2) 5 Normal Abduction 2+ Poor+ Adduction 1 Trace Knee Strength Knee Manual Muscle Testing Right Flexion (S2) 5 Normal Extension (L3) 5 Normal Left Flexion (S2) 5 Normal Extension (L3) 5 Normal Ankle/Foot Strength Ankle and Foot Manual Muscle Testing Right Comments All tests 5/5 Left Comments All tests 5/5 PT-OP-Q Treatments Start: 06/02/20 18:24 Freq: Status: Active Protocol: Document 07/08/20 09:07 LRN (Rec: 07/08/20 09:52 LRN [id number]) Therapeutic Exercises Supine Exercises LE Hamstring/neural stretch Supine Exercise Name Hamstring/LE neural stretch Side left Reps/Minutes 3' Comments Extra time to determine tolerance L Knee ext Supine Exercise Name L knee ext stretch passive & active assistlive Side left Reps/Minutes 5' Piriformis stretch Supine Exercise Name Knee to opposite shoulder Side right Reps/Minutes 5' Passive knee ext stretch Supine Exercise Name Full knee ext passive stretch Side bilateral Equipment Used Towel roll to prop L leg to prevent hip ER Reps/Minutes 3' TA Supine Exercise Name TA w/PF, legs straight, feet almost neutral Reps/Minutes 10 x 12 Comments TA helped control the L lateral hip pain. Therapeutic Activity Therapeutic Activity Sit <-> Supine Name Sit <-> Supine training w/TA contraction Reps/Minutes 2' Comments Pt needed extensive physical and verbal cuing. Manual Therapy Treatment Soft Tissue Mobilization L knee lateral tendons Body Location L lateral hamstring and medial Mobilization Type Strumming,Trigger Point Release Intensity/Depth Moderate Body Position Supine Comments Towel roll supporting leg to prevent ER. Joint Mobilizations L knee Joint Posterior glide of femur on Tibia Grade II Reps/Duration 4' Comments Oscillation L Innominate Joint Correcting a L outflare/ anterior rot Direction MET Comments Corrected leg length. Self-Care/Home Management Treatment Activities Self-Care/Home Management Activities I/S pt in sitting armani R hip AB/ER, to be done before standing after sitting. PT-OP-T Assessment and Plan Start: 06/02/20 18:24 Freq: Status: Active Protocol: Document 07/08/20 09:07 LRN (Rec: 07/08/20 09:52 LRN [id number]) Physical Therapy Assessment Goals Four Impairment Decreased L hip strength (AB 2 +/5, AD 1/5) Short Term Goal (STG) Pt will be able to move in bed with tolerable pain. STG Duration 07/16/20 Winding Operator Goal (LTG) Pt will be able to ambulate stairs and level ground with confidence to return to dog walking with his . LTG Duration 10/01/20 Three Impairment Decreased balance, loss of balance on initial standing and after 5'. Short Term Goal (STG) Pt will be able to transfer sit to stand without fear of losing his balance, and decreased TUG score to 19 sec' s. STG Duration 07/16/20 Correction Goal (LTG) Decrease TUG time to 13-14 sec 's with pt able to stand > 5' without fear of loss of balance. LTG Duration 10/01/20 Two Impairment LLE pain from hip to foot rated 0-9/10, disturbing sleep . Short Term Goal (STG) Pt will reduce his need for Tylenol and will improve standing tolerance such that he will be able to exercise through an entire PT session. STG Duration 07/16/20 (06/21/20: Progressing) Winding Operator Goal (LTG) Pt will be able to improve sleep duration to 6-8 hrs for the majority of the time. LTG Duration 10/01/20 One Impairment Lacks appropriate self care HEP. Correction Goal (LTG) Pt will be independent with a self care HEP. LTG Duration 10/01/20 (07/01/20: Progressing) Progress Towards Goals Progress Towards Goals Slow Progress due to Activity Tolerance Progress Comments Pain decreased 05/31 to 4/10. Assessment Summary Assessment Able to correct pelvic obliquity easier and more quickly. Pain decreased after therapy. Pt may be losing pelvic stability with prolonged sitting, possibly causing inflare R, outflare L. Physical Therapy Plan Frequency and Duration Frequency of Treatment 2x/Week Plan of Care Start Date 06/03/20 Plan of Care End Date 10/01/20 Next Visit Focus/Plan Next Note Type Treatment Note Next Visit Plan Correct SIJ dysfunction of flare/rotation (see assessment ), progress lumbar/pelvic stabilization, if tolerated, add to HEP: hip ROM (LE neural , L hip AB stretch) ex's, check hip IR/ER strength ( Tests: log roll - found negative, check: Stinchfield, Distraction & Lateral compression, Thigh Thrust, Gaenslen). SIJ mob for possible R downslip. Mob to sacrum. Lumbar/pelvic stabilization exercises.
--- NOTE | 2020-07-12 17:09 | PT.OTN ---
Current Diagnoses Osteoarthritis of hip, unspecified (07/12/20) Other intervertebral disc displacement, lumbosacral region (07/12/20) Muscle weakness (generalized) (07/12/20) Unsteadiness on feet (07/12/20) Physical Therapy Treatment Note PT-OP-A Visit Information Start: 06/02/20 18:24 Freq: Status: Active Protocol: Document 07/12/20 09:02 LRN (Rec: 07/12/20 09:48 LRN [id number]) Out-Patient Physical Therapy Visit Information Visit Information Visit Type Treatment Note Visit Start Time 09:02 Visit Stop Time 09:45 Total Visit Minutes 43 Visit Number 8 Evaluation Information Evaluation Date 06/03/20 Precautions Precautions L knee has not been able to straighten for ~ 2 yrs. Current Dx (per history review ): Left herniated disc (L5-S1 ), Hip Osteoarthritis, Polymyalgia rheumatica, spondylosis of lumbar spine, and HTN. PT-OP-B Current Condition Start: 06/02/20 18:24 Freq: Status: Active Protocol: Document 06/03/20 09:46 LRN (Rec: 06/03/20 10:43 LRN [id number]) Current Condition History of Current Condition Onset Date 2.5 months Current Complaints L hip and leg pain, buttock to foot down lateral LE. History of Current Condition Pain onset insidious. States he has disc problems in the back and it was thought he had a pinched nerve. The injection provided relief for 1.5 days. Now he feels he is getting progressively worse. Getting up in the morning pain is 8-10/10 and lessens during the day to 3-4/10. After sitting for awhile (1 hr) after walking to the kitchen his pain increases. By bedtime pain is 6-10/10. Sleeps 4-5 hrs and then must get up due to the pain. Not able to take pain pills due to bowel problems. Takes Tylenol nightly and upon waking to help control the pain. Prior Treatments and Tests Dr. Bowen gave him a shot in the back and a week lateral to hip. Pain was a little better after the injections. Pain changed from 10 to 4. Future Testing and Treatments Planned Dr. Bowen follow up in July. Treatment Goals Patient/Caregiver Goals Pt goals: Walk dog with . Decrease pain to sleep 6-8 hrs peacefully without use of Tylenol. Decrease use of Tylenol for sleep. Prior Functional Status Baseline Function- ADL's Independent Baseline Function- Mobility Independent Baseline Function- Gait Pt able to walk without difficulty. Baseline Function- Other Not able to walk with to walk dog due to feeling of leg giving way. Able to sleep 6-8 hours per night. Current Functional Impairments (Reported) Functional Limitations- Mobility/Gait Pain with walking, not steady. Functional Limitations- Recreation/ Walked with to walk dog 1 Hobbies mile. 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 L knee has not been able to straighten for ~ 2 yrs. Current Dx (per history review ): Left herniated disc (L5-S1 ), Hip Osteoarthritis, Polymyalgia rheumatica, spondylosis of lumbar spine, and HTN. PT-OP-C Subjective Start: 06/02/20 18:24 Freq: Status: Active Protocol: Document 07/12/20 09:02 LRN (Rec: 07/12/20 17:00 LRN [id number]) OP-PT Subjective Patient Comments Patient Comments States he is waking with terrible R hip and lateral leg pain. PT-OP-D Balance Start: 06/02/20 18:24 Freq: Status: Active Protocol: Document 06/03/20 09:46 LRN (Rec: 06/03/20 16:33 LRN [id number]) OP-PT Balance Assessment Standing Balance Static Standing Balance Ability Poor Dynamic Standing Balance Ability Fair Standing Balance Comments Pt has loss of balance on initial standing, using plinth to stabilized at legs and snowden as standing time increases. Pt did not tolerate static standing for > 5' before pain in LLE caused him to request sitting. Alba Fall Scale Copyright Permission PT-OP-E Functional Tests Start: 06/02/20 18:24 Freq: Status: Active Protocol: Document 06/03/20 09:46 LRN (Rec: 06/03/20 14:51 LRN [id number]) Functional Tests Timed Up and Go (TUG) Score 24 TUG Impairment Rating 100% Impaired (Score 20) PT-OP-G Mobility & Gait Start: 06/02/20 18:24 Freq: Status: Active Protocol: Document 06/03/20 09:46 LRN (Rec: 06/03/20 14:51 LRN [id number]) OP Gait Assessment Gait Gait Assistance Required: Standby Assistance Distance (Feet) 60 Able to Maintain Weight Bearing Status Yes During Gait Assistive Devices Assistive Device None Gait Deviations General Gait Pattern Decreased Stride Length, Decreased Feet Clearance, Flexed Trunk,Wide Based Gait Factors Limiting Gait Function Factors Limiting Gait Function Decreased Activity Tolerance, Decreased Strength,Pain,Poor Balance PT-OP-H Neuro Start: 06/02/20 18:24 Freq: Status: Active Protocol: Document 06/03/20 09:46 LRN (Rec: 06/03/20 14:51 LRN [id number]) Sensation Evaluation Gross Sensation Gross Sensation Left LE Impaired Sensation Description Numbness,Pain Dermatome Impairments L4,L5,S1 Deep Tendon Reflex & Clonus Assessment Deep Tendon Reflex Left Achilles Deep Tendon Reflex 0 Absent Bilateral Patellar Deep Tendon Reflex 1+ Diminished PT-OP-J Posture/Palpation/Skin Start: 06/02/20 18:24 Freq: Status: Active Protocol: Document 06/03/20 09:46 LRN (Rec: 06/03/20 14:51 LRN [id number]) Posture Evaluation Position Standing Head/C-Spine Posture Forward Head L-Spine Posture Flattened Pelvis Posture Posterior Tilted Hip Posture (L) Flexed,(R) Flexed Palpation Assessment Location L TFL Palpation Location TFL Muscle belly Palpation Findings Tenderness L lateral hip Palpation Location Greater trochanter Palpation Findings Tenderness PT-OP-K Range of Motion Start: 06/02/20 18:24 Freq: Status: Active Protocol: Document 06/08/20 14:27 LRN (Rec: 06/08/20 15:30 LRN [id number]) Lumbar Spine Range of Motion Lumbar Spine Active Degrees Testing Position Standing Flexion 7 Extension 5 Lateral Flexion Left 10 Lateral Flexion Right 15 Comments Trunk flex: 5 hip flex Trunk ext: 5 hip ext PT-OP-L Special Tests Start: 06/02/20 18:24 Freq: Status: Active Protocol: Document 06/03/20 09:46 LRN (Rec: 06/03/20 14:51 LRN [id number]) Special Tests Lumbar Spine Special Tests Straight Leg Raise Test Results Neg bilaterally Comments Hamstring tightness Hip Special Tests AILEEN Test Results + R for anterior groin pain Comments Indicates possible SIJ dysfunction Other Special Tests Special Tests December Test: + Right. Indicates possible SIJ dysfunction. PT-OP-M Strength Start: 06/02/20 18:24 Freq: Status: Active Protocol: Document 06/03/20 09:46 LRN (Rec: 06/03/20 14:51 LRN [id number]) Hip Strength Hip Manual Muscle Testing Right Flexion (L2) 5 Normal Abduction 4 Good Adduction 2 Poor Left Flexion (L2) 5 Normal Abduction 2+ Poor+ Adduction 1 Trace Knee Strength Knee Manual Muscle Testing Right Flexion (S2) 5 Normal Extension (L3) 5 Normal Left Flexion (S2) 5 Normal Extension (L3) 5 Normal Ankle/Foot Strength Ankle and Foot Manual Muscle Testing Right Comments All tests 5/5 Left Comments All tests 5/5 PT-OP-Q Treatments Start: 06/02/20 18:24 Freq: Status: Active Protocol: Document 07/12/20 09:02 LRN (Rec: 07/12/20 09:48 LRN [id number]) Therapeutic Exercises Supine Exercises Fig 4 stretch Supine Exercise Name Fig 4 stretch f/b active stretch x 10 Side left Comments Extra time for determining tolerable stretch Lateral hip stretch Supine Exercise Name Lateral hip stretch Side left Reps/Minutes 3' Comments Extra time for determining tolerable stretch LE Hamstring/neural stretch Supine Exercise Name Hamstring/LE neural stretch Side left Reps/Minutes 3' Comments Extra time to determine tolerance Piriformis stretch Supine Exercise Name Knee to opposite shoulder Side left Reps/Minutes 5' Comments Extra time for determining tolerable stretch Therapeutic Activity Therapeutic Activity Sit <-> Supine Name Sit <-> Supine training w/TA contraction Reps/Minutes 4' Comments Pt needed extensive physical and verbal cuing. Manual Therapy Treatment Soft Tissue Mobilization L TFL Body Location L TFL & IT Band Mobilization Type Instrument Assisted,Strumming, Sustained Pressure Intensity/Depth Superficial Body Position Sidelying Self-Care/Home Management Treatment Education Patient Education Home Exercise Program Activities Self-Care/Home Management Activities Issued & reviewed HEP. PT-OP-T Assessment and Plan Start: 06/02/20 18:24 Freq: Status: Active Protocol: Document 07/12/20 09:02 LRN (Rec: 07/12/20 09:48 LRN [id number]) Physical Therapy Assessment Goals Four Impairment Decreased L hip strength (AB 2 +/5, AD 1/5) Short Term Goal (STG) Pt will be able to move in bed with tolerable pain. STG Duration 07/16/20 Crown Pouncer Goal (LTG) Pt will be able to ambulate stairs and level ground with confidence to return to dog walking with his . LTG Duration 10/01/20 Three Impairment Decreased balance, loss of balance on initial standing and after 5'. Short Term Goal (STG) Pt will be able to transfer sit to stand without fear of losing his balance, and decreased TUG score to 19 sec' s. STG Duration 07/16/20 Crown Pouncer Goal (LTG) Decrease TUG time to 13-14 sec 's with pt able to stand > 5' without fear of loss of balance. LTG Duration 10/01/20 Two Impairment LLE pain from hip to foot rated 0-9/10, disturbing sleep . Short Term Goal (STG) Pt will reduce his need for Tylenol and will improve standing tolerance such that he will be able to exercise through an entire PT session. STG Duration 07/16/20 (06/21/20: Progressing) Crown Pouncer Goal (LTG) Pt will be able to improve sleep duration to 6-8 hrs for the majority of the time. LTG Duration 10/01/20 One Impairment Lacks appropriate self care HEP. Crown Pouncer Goal (LTG) Pt will be independent with a self care HEP. LTG Duration 10/01/20 (07/12/20: Progressing) Progress Towards Goals Progress Towards Goals Slow Progress due to Activity Tolerance Assessment Summary Assessment Normal pelvic alignment to start. Pain behind knee is from knee flex contrature. Pt able to transfer supine to sit without increased L hip/ lateral leg or knee pain if keeping core stabilized. Pt had lessening of pain after STM. Pt appears to have poor postural awareness while in waiting room and during transfers, probably out of habit. Progression probably is being hindered by poor posturing and positioning. Physical Therapy Plan Frequency and Duration Frequency of Treatment 2x/Week Plan of Care Start Date 06/03/20 Plan of Care End Date 10/01/20 Next Visit Focus/Plan Next Note Type Treatment Note Next Visit Plan PN after next visit. Check Sacral positioning & SIJ dysfunction of flare/rotation (see assessment), might try starting with upright ex bike if normal pelvic alignment to progress lumbar/pelvic stabilization. Mob to sacrum as needed. Add to HEP: hip ROM (LE neural, L hip AB stretch) ex's, check hip IR/ER strength (Tests: log roll - found negative, check: Stinchfield, Distraction & Lateral compression, Thigh Thrust, Gaenslen). SIJ mob for possible R downslip. Lumbar/pelvic stabilization exercises.
--- NOTE | 2020-07-15 15:44 | PT.OTN ---
Current Diagnoses Osteoarthritis of hip, unspecified (07/15/20) Other intervertebral disc displacement, lumbosacral region (07/15/20) Muscle weakness (generalized) (07/15/20) Unsteadiness on feet (07/15/20) Physical Therapy Treatment Note PT-OP-A Visit Information Start: 06/02/20 18:24 Freq: Status: Active Protocol: Document 07/15/20 13:01 HH (Rec: 07/15/20 13:50 HH [id number]) Out-Patient Physical Therapy Visit Information Visit Information Visit Type Treatment Note Visit Start Time 13:01 Visit Stop Time 13:45 Total Visit Minutes 44 Visit Number 9 Number of HEEL ATTACHER WOOD Visits 0 PT-OP-B Current Condition Start: 06/02/20 18:24 Freq: Status: Active Protocol: Document 06/03/20 09:46 LRN (Rec: 06/03/20 10:43 LRN [id number]) Current Condition History of Current Condition Onset Date 2.5 months Current Complaints L hip and leg pain, buttock to foot down lateral LE. History of Current Condition Pain onset insidious. States he has disc problems in the back and it was thought he had a pinched nerve. The injection provided relief for 1.5 days. Now he feels he is getting progressively worse. Getting up in the morning pain is 8-10/10 and lessens during the day to 3-4/10. After sitting for awhile (1 hr) after walking to the kitchen his pain increases. By bedtime pain is 6-10/10. Sleeps 4-5 hrs and then must get up due to the pain. Not able to take pain pills due to bowel problems. Takes Tylenol nightly and upon waking to help control the pain. Prior Treatments and Tests Dr. Bowen gave him a shot in the back and a week lateral to hip. Pain was a little better after the injections. Pain changed from 10 to 4. Future Testing and Treatments Planned Dr. Bowen follow up in July. Treatment Goals Patient/Caregiver Goals Pt goals: Walk dog with . Decrease pain to sleep 6-8 hrs peacefully without use of Tylenol. Decrease use of Tylenol for sleep. Prior Functional Status Baseline Function- ADL's Independent Baseline Function- Mobility Independent Baseline Function- Gait Pt able to walk without difficulty. Baseline Function- Other Not able to walk with to walk dog due to feeling of leg giving way. Able to sleep 6-8 hours per night. Current Functional Impairments (Reported) Functional Limitations- Mobility/Gait Pain with walking, not steady. Functional Limitations- Recreation/ Walked with to walk dog 1 Hobbies mile. 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 L knee has not been able to straighten for ~ 2 yrs. Current Dx (per history review ): Left herniated disc (L5-S1 ), Hip Osteoarthritis, Polymyalgia rheumatica, spondylosis of lumbar spine, and HTN. PT-OP-C Subjective Start: 06/02/20 18:24 Freq: Status: Active Protocol: Document 07/15/20 13:01 HH (Rec: 07/15/20 13:50 HH [id number]) OP-PT Subjective Patient Comments Patient Comments I have some soreness at my L calf. My sleep is still sporadic because of my L hip PT-OP-D Balance Start: 06/02/20 18:24 Freq: Status: Active Protocol: Document 06/03/20 09:46 LRN (Rec: 06/03/20 16:33 LRN [id number]) OP-PT Balance Assessment Standing Balance Static Standing Balance Ability Poor Dynamic Standing Balance Ability Fair Standing Balance Comments Pt has loss of balance on initial standing, using plinth to stabilized at legs and snowden as standing time increases. Pt did not tolerate static standing for > 5' before pain in LLE caused him to request sitting. Alba Fall Scale Copyright Permission PT-OP-E Functional Tests Start: 06/02/20 18:24 Freq: Status: Active Protocol: Document 06/03/20 09:46 LRN (Rec: 06/03/20 14:51 LRN [id number]) Functional Tests Timed Up and Go (TUG) Score 24 TUG Impairment Rating 100% Impaired (Score 20) PT-OP-G Mobility & Gait Start: 06/02/20 18:24 Freq: Status: Active Protocol: Document 06/03/20 09:46 LRN (Rec: 06/03/20 14:51 LRN [id number]) OP Gait Assessment Gait Gait Assistance Required: Standby Assistance Distance (Feet) 60 Able to Maintain Weight Bearing Status Yes During Gait Assistive Devices Assistive Device None Gait Deviations General Gait Pattern Decreased Stride Length, Decreased Feet Clearance, Flexed Trunk,Wide Based Gait Factors Limiting Gait Function Factors Limiting Gait Function Decreased Activity Tolerance, Decreased Strength,Pain,Poor Balance PT-OP-H Neuro Start: 06/02/20 18:24 Freq: Status: Active Protocol: Document 06/03/20 09:46 LRN (Rec: 06/03/20 14:51 LRN [id number]) Sensation Evaluation Gross Sensation Gross Sensation Left LE Impaired Sensation Description Numbness,Pain Dermatome Impairments L4,L5,S1 Deep Tendon Reflex & Clonus Assessment Deep Tendon Reflex Left Achilles Deep Tendon Reflex 0 Absent Bilateral Patellar Deep Tendon Reflex 1+ Diminished PT-OP-J Posture/Palpation/Skin Start: 06/02/20 18:24 Freq: Status: Active Protocol: Document 06/03/20 09:46 LRN (Rec: 06/03/20 14:51 LRN [id number]) Posture Evaluation Position Standing Head/C-Spine Posture Forward Head L-Spine Posture Flattened Pelvis Posture Posterior Tilted Hip Posture (L) Flexed,(R) Flexed Palpation Assessment Location L TFL Palpation Location TFL Muscle belly Palpation Findings Tenderness L lateral hip Palpation Location Greater trochanter Palpation Findings Tenderness PT-OP-K Range of Motion Start: 06/02/20 18:24 Freq: Status: Active Protocol: Document 06/08/20 14:27 LRN (Rec: 06/08/20 15:30 LRN [id number]) Lumbar Spine Range of Motion Lumbar Spine Active Degrees Testing Position Standing Flexion 7 Extension 5 Lateral Flexion Left 10 Lateral Flexion Right 15 Comments Trunk flex: 5 hip flex Trunk ext: 5 hip ext PT-OP-L Special Tests Start: 06/02/20 18:24 Freq: Status: Active Protocol: Document 06/03/20 09:46 LRN (Rec: 06/03/20 14:51 LRN [id number]) Special Tests Lumbar Spine Special Tests Straight Leg Raise Test Results Neg bilaterally Comments Hamstring tightness Hip Special Tests AILEEN Test Results + R for anterior groin pain Comments Indicates 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 Indicates possible SIJ dysfunction. PT-OP-M Strength Start: 06/02/20 18:24 Freq: Status: Active Protocol: Document 06/03/20 09:46 LRN (Rec: 06/03/20 14:51 LRN [id number]) Hip Strength Hip Manual Muscle Testing Right Flexion (L2) 5 Normal Abduction 4 Good Adduction 2 Poor Left Flexion (L2) 5 Normal Abduction 2+ Poor+ Adduction 1 Trace Knee Strength Knee Manual Muscle Testing Right Flexion (S2) 5 Normal Extension (L3) 5 Normal Left Flexion (S2) 5 Normal Extension (L3) 5 Normal Ankle/Foot Strength Ankle and Foot Manual Muscle Testing Right Comments All tests 5/5 Left Comments All tests 5/5 PT-OP-Q Treatments Start: 06/02/20 18:24 Freq: Status: Active Protocol: Document 07/15/20 13:01 (Rec: 07/15/20 13:50 [id number]) Therapeutic Exercises Supine Exercises Fig 4 stretch Supine Exercise Name Fig 4 stretch f/b active stretch x 10 Side left Comments Extra time for determining tolerable stretch Lateral hip stretch Supine Exercise Name Lateral hip stretch Side left Reps/Minutes 3' Comments Extra time for determining tolerable stretch LE Hamstring/neural stretch Supine Exercise Name Hamstring/LE neural stretch Side left Reps/Minutes 3' Comments Extra time to determine tolerance Piriformis stretch Supine Exercise Name Knee to opposite shoulder Side left Reps/Minutes 5' Comments Extra time for determining tolerable stretch Bridge Side bilateral Reps/Minutes 6 x 2 Comments slight discomfort at L post hip during push off. supine hip ER Supine Exercise Name bilateral then unilateral Side bilateral Equipment Used with yellow band Reps/Minutes 8 x 2 Sidelying Exercises clamshell Sidelying Exercise Name cues on preventing lumbar rotation Side bilateral Reps/Minutes 8 x2 Comments L is significantly weaker than L Manual Therapy Treatment Soft Tissue Mobilization glutes and piriformis Body Location L side Mobilization Type Sustained Pressure,Trigger Point Release Intensity/Depth Moderate Body Position Sidelying Manual Traction L hip Body Position Supine Reps/Duration 8 sec hold x8 Comments pt feels relief of L hip pain. PT-OP-T Assessment and Plan Start: 06/02/20 18:24 Freq: Status: Active Protocol: Document 07/15/20 13:01 (Rec: 07/15/20 13:50 [id number]) Physical Therapy Assessment Goals Four Impairment Decreased L hip strength (AB 2 +/5, AD 1/5) Short Term Goal (STG) Pt will be able to move in bed with tolerable pain. STG Duration 07/16/20 Ice Delivery Driver Goal (LTG) Pt will be able to ambulate stairs and level ground with confidence to return to dog walking with his . LTG Duration 10/01/20 Three Impairment Decreased balance, loss of balance on initial standing and after 5'. Short Term Goal (STG) Pt will be able to transfer sit to stand without fear of losing his balance, and decreased TUG score to 19 sec' s. STG Duration 07/16/20 [facility] Goal (LTG) Decrease TUG time to 13-14 sec 's with pt able to stand > 5' without fear of loss of balance. LTG Duration 10/01/20 Two Impairment LLE pain from hip to foot rated 0-9/10, disturbing sleep . Short Term Goal (STG) Pt will reduce his need for Tylenol and will improve standing tolerance such that he will be able to exercise through an entire PT session. STG Duration 07/16/20 (06/21/20: Progressing) Ice Delivery Driver Goal (LTG) Pt will be able to improve sleep duration to 6-8 hrs for the majority of the time. LTG Duration 10/01/20 One Impairment Lacks appropriate self care HEP. [facility] Goal (LTG) Pt will be independent with a self care HEP. LTG Duration 10/01/20 (07/12/20: Progressing) Assessment Summary Assessment Pt monserrat session well with focus on hip mobility and reducing sciatic nerve tension . Pt was able to place his LLE fully extended on table without much discomfort after. There's noticeable weakness on L during supine hip ER and clam shell. Will cont monitor his progress. Physical Therapy Plan Next Visit Focus/Plan Next Note Type Treatment Note Next Visit Plan PN after next visit. Check Sacral positioning & SIJ dysfunction of flare/rotation (see assessment), might try starting with upright ex bike if normal pelvic alignment to progress lumbar/pelvic stabilization. Mob to sacrum as needed. Add to HEP: hip ROM (LE neural, L hip AB stretch) ex's, check hip IR/ER strength (Tests: log roll - found negative, check: Stinchfield, Distraction & Lateral compression, Thigh Thrust, Gaenslen). SIJ mob for possible R downslip. Lumbar/pelvic stabilization exercises.
--- NOTE | 2020-07-19 16:35 | PT.OTN ---
Current Diagnoses Osteoarthritis of hip, unspecified (07/19/20) Other intervertebral disc displacement, lumbosacral region (07/19/20) Muscle weakness (generalized) (07/19/20) Unsteadiness on feet (07/19/20) Physical Therapy Treatment Note PT-OP-A Visit Information Start: 06/02/20 18:24 Freq: Status: Active Protocol: Document 07/19/20 09:01 LRN (Rec: 07/19/20 09:53 LRN [id number]) Out-Patient Physical Therapy Visit Information Visit Information Visit Type Progress Note Visit Start Time 09:01 Visit Stop Time 09:53 Total Visit Minutes 52 Visit Number 10 Evaluation Information Evaluation Date 06/03/20 Precautions Precautions L knee has not been able to straighten for ~ 2 yrs. Current Dx (per history review ): Left herniated disc (L5-S1 ), Hip Osteoarthritis, Polymyalgia rheumatica, spondylosis of lumbar spine, and HTN. PT-OP-B Current Condition Start: 06/02/20 18:24 Freq: Status: Active Protocol: Document 06/03/20 09:46 LRN (Rec: 06/03/20 10:43 LRN [id number]) Current Condition History of Current Condition Onset Date 2.5 months Current Complaints L hip and leg pain, buttock to foot down lateral LE. History of Current Condition Pain onset insidious. States he has disc problems in the back and it was thought he had a pinched nerve. The injection provided relief for 1.5 days. Now he feels he is getting progressively worse. Getting up in the morning pain is 8-10/10 and lessens during the day to 3-4/10. After sitting for awhile (1 hr) after walking to the kitchen his pain increases. By bedtime pain is 6-10/10. Sleeps 4-5 hrs and then must get up due to the pain. Not able to take pain pills due to bowel problems. Takes Tylenol nightly and upon waking to help control the pain. Prior Treatments and Tests Dr. Bowen gave him a shot in the back and a week lateral to hip. Pain was a little better after the injections. Pain changed from 10 to 4. Future Testing and Treatments Planned Dr. Bowen follow up in July. Treatment Goals Patient/Caregiver Goals Pt goals: Walk dog with . Decrease pain to sleep 6-8 hrs peacefully without use of Tylenol. Decrease use of Tylenol for sleep. Prior Functional Status Baseline Function- ADL's Independent Baseline Function- Mobility Independent Baseline Function- Gait Pt able to walk without difficulty. Baseline Function- Other Not able to walk with to walk dog due to feeling of leg giving way. Able to sleep 6-8 hours per night. Current Functional Impairments (Reported) Functional Limitations- Mobility/Gait Pain with walking, not steady. Functional Limitations- Recreation/ Walked with to walk dog 1 [address]. 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 L knee has not been able to straighten for ~ 2 yrs. Current Dx (per history review ): Left herniated disc (L5-S1 ), Hip Osteoarthritis, Polymyalgia rheumatica, spondylosis of lumbar spine, and HTN. PT-OP-C Subjective Start: 06/02/20 18:24 Freq: Status: Active Protocol: Document 07/19/20 09:01 LRN (Rec: 07/19/20 09:53 LRN [id number]) OP-PT Subjective Patient Comments Patient Comments States this morning is a good, no leg pain. Didn't sleep well last night. No pain after last session for 1/2 day . Did not take nighttime Tylenol and was not able to sleep the typical 6 hrs, only 4 hrs. Patient Questionnaires Lower Extremity Functional Scale LEFS Score 21 LEFS Impairment 60 to 79% Impaired (Score 17- 31) PT-OP-D Balance Start: 06/02/20 18:24 Freq: Status: Active Protocol: Document 06/03/20 09:46 LRN (Rec: 06/03/20 16:33 LRN [id number]) OP-PT Balance Assessment Standing Balance Static Standing Balance Ability Poor Dynamic Standing Balance Ability Fair Standing Balance Comments Pt has loss of balance on initial standing, using plinth to stabilized at legs and snowden as standing time increases. Pt did not tolerate static standing for > 5' before pain in LLE caused him to request sitting. Alba Fall Scale Copyright Permission PT-OP-E Functional Tests Start: 06/02/20 18:24 Freq: Status: Active Protocol: Document 07/19/20 09:01 LRN (Rec: 07/19/20 09:53 LRN [id number]) Functional Tests Timed Up and Go (TUG) Score 20 Comments Used hands to transfer TUG Impairment Rating 100% Impaired (Score 20) PT-OP-G Mobility & Gait Start: 06/02/20 18:24 Freq: Status: Active Protocol: Document 06/03/20 09:46 LRN (Rec: 06/03/20 14:51 LRN [id number]) OP Gait Assessment Gait Gait Assistance Required: Standby Assistance Distance (Feet) 60 Able to Maintain Weight Bearing Status Yes During Gait Assistive Devices Assistive Device None Gait Deviations General Gait Pattern Decreased Stride Length, Decreased Feet Clearance, Flexed Trunk,Wide Based Gait Factors Limiting Gait Function Factors Limiting Gait Function Decreased Activity Tolerance, Decreased Strength,Pain,Poor Balance PT-OP-H Neuro Start: 06/02/20 18:24 Freq: Status: Active Protocol: Document 06/03/20 09:46 LRN (Rec: 06/03/20 14:51 LRN [id number]) Sensation Evaluation Gross Sensation Gross Sensation Left LE Impaired Sensation Description Numbness,Pain Dermatome Impairments L4,L5,S1 Deep Tendon Reflex & Clonus Assessment Deep Tendon Reflex Left Achilles Deep Tendon Reflex 0 Absent Bilateral Patellar Deep Tendon Reflex 1+ Diminished PT-OP-J Posture/Palpation/Skin Start: 06/02/20 18:24 Freq: Status: Active Protocol: Document 06/03/20 09:46 LRN (Rec: 06/03/20 14:51 LRN [id number]) Posture Evaluation Position Standing Head/C-Spine Posture Forward Head L-Spine Posture Flattened Pelvis Posture Posterior Tilted Hip Posture (L) Flexed,(R) Flexed Palpation Assessment Location L TFL Palpation Location TFL Muscle belly Palpation Findings Tenderness L lateral hip Palpation Location Greater trochanter Palpation Findings Tenderness PT-OP-K Range of Motion Start: 06/02/20 18:24 Freq: Status: Active Protocol: Document 06/08/20 14:27 LRN (Rec: 06/08/20 15:30 LRN [id number]) Lumbar Spine Range of Motion Lumbar Spine Active Degrees Testing Position Standing Flexion 7 Extension 5 Lateral Flexion Left 10 Lateral Flexion Right 15 Comments Trunk flex: 5 hip flex Trunk ext: 5 hip ext PT-OP-L Special Tests Start: 06/02/20 18:24 Freq: Status: Active Protocol: Document 06/03/20 09:46 LRN (Rec: 06/03/20 14:51 LRN [id number]) Special Tests Lumbar Spine Special Tests Straight Leg Raise Test Results Neg bilaterally Comments Hamstring tightness Hip Special Tests AILEEN Test Results + R for anterior groin pain Comments Indicates 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 Indicates possible SIJ dysfunction. PT-OP-M Strength Start: 06/02/20 18:24 Freq: Status: Active Protocol: Document 07/19/20 09:01 LRN (Rec: 07/19/20 09:53 LRN [id number]) Hip Strength Hip Manual Muscle Testing Right Adduction 1 Trace Left Abduction 2+ Poor+ PT-OP-Q Treatments Start: 06/02/20 18:24 Freq: Status: Active Protocol: Document 07/19/20 09:01 LRN (Rec: 07/19/20 09:53 LRN [id number]) Cardio Equipment Bicycle (Upright) Duration (Minutes) 7 Resistance 0 Seat Position 7 Therapeutic Exercises Sidelying Exercises Hip AD Sidelying Exercise Name Hip AD Side bilateral Reps/Minutes 4' Comments R AD caused onset of L sciatic pain into lateral hip and upper thigh Hip AB Sidelying Exercise Name Hip AB Side bilateral Reps/Minutes 4' Sitting Exercises Postural awareness training Sitting Exercise Name Postural awareness training Reps/Minutes 3' Standing Exercises Sit to Stand Standing Exercise Name Sit to stand with neutral spine positioning Reps/Minutes 3' Comments Pt moves slowly and was not fully steady on standing. 1x light headed. Therapeutic Activity Therapeutic Activity Rolling on plinth Name Rolling right <-> left Reps/Minutes 9' Comments Pt needed extra physical cuing to minimize fear of falling off plinth. Pt needed constant verbal & physical cuing to maintain neutral spine positioning with lordosis and TA tightening. Pt had to shift right to left on plinth in order to roll in opposite direction and required much phys & v cuing. Sit <-> Supine Name Sit <-> Supine training w/TA/ anter pelvic tilt contraction Reps/Minutes 5' Comments Training from left and right side. Sit<->Stand Name Sit <-> Stand Reps/Minutes 4x Self-Care/Home Management Treatment Education Patient Education Body Mechanics Other Education Discussed functional activities with assist given to pt to read LEFS questions to pt in order to complete. Pt was not able to see to read the questionnaire form. Activities Self-Care/Home Management Activities I/S pt at length in proper body mechanics for reaching for objects seat height and lower. Pt is to problem solve his reaching for breakfast food in too low of positioning . I/S pt in proper standing posture. PT-OP-T Assessment and Plan Start: 06/02/20 18:24 Freq: Status: Active Protocol: Document 07/19/20 09:01 LRN (Rec: 07/19/20 09:53 LRN [id number]) Physical Therapy Assessment Rehab Potential Rehabilitation Potential Good Evaluation Complexity Number of Personal Factors/Comorbidities 3 or More Number of Body Systems Impaired 4 or More Clinical Presentation at Evaluation Evolving Impairments Impairments Activity Tolerance,Balance, Functional Mobility,Gait,Pain, Posture,ROM,Soft Tissue Mobility,Strength Goals Four Impairment Decreased L hip strength (AB 2 +/5, AD 1/5) Short Term Goal (STG) Pt will be able to move in bed with tolerable pain. (07/19/20: No change in L hip strength) STG Duration 07/16/20 (07/19/20: Moving in bed pain is 7/10) Halfway Goal (LTG) Pt will be able to ambulate stairs and level ground with confidence to return to dog walking with his . LTG Duration 10/01/20 Three Impairment Decreased balance, loss of balance on initial standing and after 5'. Short Term Goal (STG) Pt will be able to transfer sit to stand without fear of losing his balance, and decreased TUG score to 19 sec' s. (07/19/20: TUG score 20, improved from 24 initially. Pt is very aware and concerned with sit to stand loss of balance). STG Duration 07/16/20 (07/19/20: Improved) Halfway Goal (LTG) Decrease TUG time to 13-14 sec 's with pt able to stand > 5' without fear of loss of balance. LTG Duration 10/01/20 Two Impairment LLE pain from hip to foot rated 0-9/10, disturbing sleep . Short Term Goal (STG) Pt will reduce his need for Tylenol and will improve standing tolerance such that he will be able to exercise through an entire PT session. (07/19/20: Taking Tylenol in AM & PM and only 15% in afternoon, previously took AM & PM, and 2x at noon). STG Duration 07/16/20 (07/19/20: Progressing, pt rarely taking Tylenol at noon) Halfway Goal (LTG) Pt will be able to improve sleep duration to 6-8 hrs for the majority of the time. (07/19/20: Sleeps ~6 hrs, except last night had discomfort in the L hip and down lateral upper thigh). LTG Duration 10/01/20 (07/19/20: Sleeping ~6hrs with Tylenol) One Impairment Lacks appropriate self care HEP. Slate Worker Goal (LTG) Pt will be independent with a self care HEP. LTG Duration 10/01/20 (07/12/20: Progressing) Progress Towards Goals Progress Towards Goals Progressing Toward Goals,Slow Progress due to Activity Tolerance Progress Comments TUG score 20, improved from 24 initially. Taking Tylenol in AM & PM and only taking 15% of time at noon; previously took AM & PM, and 2x at noon Assessment Summary Assessment Pt has had no change in hip AB /AD strength. He requires less use of Tylenol and his function has improved slightly but his impairment rating remains the same (100% impaired). His pain complaint is high at 6/10, but is variable in nature. Today he came into therapy without pain and had onset after sit to stand activities. He demonstrates poor postural awareness and indicates poor body mechanics, hindering his ability to progress. 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 Further therapy would benefit the pt if he can be consistent with his HEP and diligent in changing his postural and body mechanics habits. I am starting to progress towards strengthening this week, but exercise in the past has been limited by his pain. I believe this patient can improve but it will depend on his constency of ex and postural changes, and as expected his rehabilitation process is prolonged. Physical Therapy Plan Frequency and Duration Frequency of Treatment 2x/Week Plan of Care Start Date 07/19/20 Plan of Care End Date 10/17/20 Therapeutic Interventions Therapeutic Interventions Balance Training,Gait Training ,Home Exercise Program,Joint Mobilizations,Manual Therapy, Neuromuscular Re-education, Patient/Caregiver Education, Self-Care/Home Management,Soft Tissue Mobilization, Therapeutic Activities, Therapeutic Exercises Modalities Cold Pack/Ice Massage,Electric Stimulation,Hot Packs, Ultrasound Next Visit Focus/Plan Next Note Type Treatment Note Next Visit Plan PN next visit. Check Sacral positioning & SIJ dysfunction of flare/rotation (see assessment), might try starting with upright ex bike if normal pelvic alignment to progress lumbar/pelvic stabilization. Mob to sacrum as needed. Add to HEP: hip ROM (LE neural, L hip AB stretch) ex's, check hip IR/ER strength (Tests: log roll - found negative, check: [place], Distraction & Lateral compression, Thigh Thrust, [place]). SIJ mob for possible R downslip. Lumbar/pelvic stabilization exercises.
--- NOTE | 2020-07-22 17:07 | PT.OTN ---
Current Diagnoses Osteoarthritis of hip, unspecified (07/22/20) Other intervertebral disc displacement, lumbosacral region (07/22/20) Muscle weakness (generalized) (07/22/20) Unsteadiness on feet (07/22/20) Physical Therapy Treatment Note PT-OP-A Visit Information Start: 06/02/20 18:24 Freq: Status: Active Protocol: Document 07/22/20 09:09 LRN (Rec: 07/22/20 09:54 LRN [id number]) Out-Patient Physical Therapy Visit Information Visit Information Visit Type Treatment Note Visit Start Time 09:09 Visit Stop Time 09:54 Total Visit Minutes 46 Visit Number 11 Evaluation Information Evaluation Date 06/03/20 Precautions Precautions L knee has not been able to straighten for ~ 2 yrs. Current Dx (per history review ): Left herniated disc (L5-S1 ), Hip Osteoarthritis, Polymyalgia rheumatica, spondylosis of lumbar spine, and HTN. PT-OP-B Current Condition Start: 06/02/20 18:24 Freq: Status: Active Protocol: Document 06/03/20 09:46 LRN (Rec: 06/03/20 10:43 LRN [id number]) Current Condition History of Current Condition Onset Date 2.5 months Current Complaints L hip and leg pain, buttock to foot down lateral LE. History of Current Condition Pain onset insidious. States he has disc problems in the back and it was thought he had a pinched nerve. The injection provided relief for 1.5 days. Now he feels he is getting progressively worse. Getting up in the morning pain is 8-10/10 and lessens during the day to 3-4/10. After sitting for awhile (1 hr) after walking to the kitchen his pain increases. By bedtime pain is 6-10/10. Sleeps 4-5 hrs and then must get up due to the pain. Not able to take pain pills due to bowel problems. Takes Tylenol nightly and upon waking to help control the pain. Prior Treatments and Tests Dr. Bowen gave him a shot in the back and a week lateral to hip. Pain was a little better after the injections. Pain changed from 10 to 4. Future Testing and Treatments Planned Dr. Bowen follow up in July. Treatment Goals Patient/Caregiver Goals Pt goals: Walk dog with . Decrease pain to sleep 6-8 hrs peacefully without use of Tylenol. Decrease use of Tylenol for sleep. Prior Functional Status Baseline Function- ADL's Independent Baseline Function- Mobility Independent Baseline Function- Gait Pt able to walk without difficulty. Baseline Function- Other Not able to walk with to walk dog due to feeling of leg giving way. Able to sleep 6-8 hours per night. Current Functional Impairments (Reported) Functional Limitations- Mobility/Gait Pain with walking, not steady. Functional Limitations- Recreation/ Walked with to walk dog 1 Hobb[address] mile. 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 L knee has not been able to straighten for ~ 2 yrs. Current Dx (per history review ): Left herniated disc (L5-S1 ), Hip Osteoarthritis, Polymyalgia rheumatica, spondylosis of lumbar spine, and HTN. PT-OP-C Subjective Start: 06/02/20 18:24 Freq: Status: Active Protocol: Document 07/22/20 09:09 LRN (Rec: 07/22/20 09:54 LRN [id number]) OP-PT Subjective Patient Comments Patient Comments Was doing things with the dog this morning and the hip doesn 't hurt, but just a little bit , 2[birth year]12/29. PT-OP-D Balance Start: 06/02/20 18:24 Freq: Status: Active Protocol: Document 06/03/20 09:46 LRN (Rec: 06/03/20 16:33 LRN [id number]) OP-PT Balance Assessment Standing Balance Static Standing Balance Ability Poor Dynamic Standing Balance Ability Fair Standing Balance Comments Pt has loss of balance on initial standing, using plinth to stabilized at legs and snowden as standing time increases. Pt did not tolerate static standing for > 5' before pain in LLE caused him to request sitting. Alba Fall Scale Copyright Permission PT-OP-E Functional Tests Start: 06/02/20 18:24 Freq: Status: Active Protocol: Document 07/19/20 09:01 LRN (Rec: 07/19/20 09:53 LRN [id number]) Functional Tests Timed Up and Go (TUG) Score 20 Comments Used hands to transfer TUG Impairment Rating 100% Impaired (Score 20) PT-OP-G Mobility & Gait Start: 06/02/20 18:24 Freq: Status: Active Protocol: Document 06/03/20 09:46 LRN (Rec: 06/03/20 14:51 LRN [id number]) OP Gait Assessment Gait Gait Assistance Required: Standby Assistance Distance (Feet) 60 Able to Maintain Weight Bearing Status Yes During Gait Assistive Devices Assistive Device None Gait Deviations General Gait Pattern Decreased Stride Length, Decreased Feet Clearance, Flexed Trunk,Wide Based Gait Factors Limiting Gait Function Factors Limiting Gait Function Decreased Activity Tolerance, Decreased Strength,Pain,Poor Balance PT-OP-H Neuro Start: 06/02/20 18:24 Freq: Status: Active Protocol: Document 06/03/20 09:46 LRN (Rec: 06/03/20 14:51 LRN [id number]) Sensation Evaluation Gross Sensation Gross Sensation Left LE Impaired Sensation Description Numbness,Pain Dermatome Impairments L4,L5,S1 Deep Tendon Reflex & Clonus Assessment Deep Tendon Reflex Left Achilles Deep Tendon Reflex 0 Absent Bilateral Patellar Deep Tendon Reflex 1+ Diminished PT-OP-J Posture/Palpation/Skin Start: 06/02/20 18:24 Freq: Status: Active Protocol: Document 06/03/20 09:46 LRN (Rec: 06/03/20 14:51 LRN [id number]) Posture Evaluation Position Standing Head/C-Spine Posture Forward Head L-Spine Posture Flattened Pelvis Posture Posterior Tilted Hip Posture (L) Flexed,(R) Flexed Palpation Assessment Location L TFL Palpation Location TFL Muscle belly Palpation Findings Tenderness L lateral hip Palpation Location Greater trochanter Palpation Findings Tenderness PT-OP-K Range of Motion Start: 06/02/20 18:24 Freq: Status: Active Protocol: Document 06/08/20 14:27 LRN (Rec: 06/08/20 15:30 LRN [id number]) Lumbar Spine Range of Motion Lumbar Spine Active Degrees Testing Position Standing Flexion 7 Extension 5 Lateral Flexion Left 10 Lateral Flexion Right 15 Comments Trunk flex: 5 hip flex Trunk ext: 5 hip ext PT-OP-L Special Tests Start: 06/02/20 18:24 Freq: Status: Active Protocol: Document 06/03/20 09:46 LRN (Rec: 06/03/20 14:51 LRN [id number]) Special Tests Lumbar Spine Special Tests Straight Leg Raise Test Results Neg bilaterally Comments Hamstring tightness Hip Special Tests AILEEN Test Results + R for anterior groin pain Comments Indicates 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 Indicates possible SIJ dysfunction. PT-OP-M Strength Start: 06/02/20 18:24 Freq: Status: Active Protocol: Document 07/22/20 09:09 LRN (Rec: 07/22/20 09:54 LRN [id number]) Hip Strength Hip Manual Muscle Testing Right Abduction 2 Poor Adduction 1 Trace Left Abduction 2 Poor Adduction 2+ Poor+ PT-OP-Q Treatments Start: 06/02/20 18:24 Freq: Status: Active Protocol: Document 07/22/20 09:09 LRN (Rec: 07/22/20 09:54 LRN [id number]) Cardio Equipment Bicycle (Upright) Duration (Minutes) 8 Resistance 0 Seat Position 7 Therapeutic Exercises Supine Exercises LE Hamstring/neural stretch Supine Exercise Name Hamstring/LE neural stretch Side left Reps/Minutes 3' Comments Extra time to determine tolerance BKFO stretch Supine Exercise Name BKFO stretch & strengthening Side bilateral Equipment Used Lev 1 TBand during strengthening Reps/Minutes 8' DKTC stretch Supine Exercise Name DKTC Reps/Minutes 2' TA Supine Exercise Name TA Reps/Minutes 2' Sidelying Exercises Hip AB Sidelying Exercise Name Hip AB Side bilateral Reps/Minutes 4' clamshell Sidelying Exercise Name Clamshell Reps/Minutes 10x Standing Exercises Sit to Stand Standing Exercise Name Sit to stand with neutral spine positioning Reps/Minutes 1' Comments Pt moves slowly and was not fully steady on standing. 1x light headed. Manual Therapy Treatment Soft Tissue Mobilization L knee lateral tendons Body Location L IT Band & lateral hamstring Mobilization Type Strumming Intensity/Depth Moderate Body Position Supine L TFL Body Location L TFL & IT Band Mobilization Type Sustained Pressure,Trigger Point Release Intensity/Depth Superficial Body Position Sidelying glutes and piriformis Body Location L side Gluteal & Piriformis Mobilization Type Strumming Intensity/Depth Moderate Body Position Sidelying PT-OP-T Assessment and Plan Start: 06/02/20 18:24 Freq: Status: Active Protocol: Document 07/22/20 09:09 LRN (Rec: 07/22/20 09:54 LRN [id number]) Physical Therapy Assessment Goals Four Impairment Decreased L hip strength (AB 2 +/5, AD 1/5) Short Term Goal (STG) Pt will be able to move in bed with tolerable pain. (07/19/20: No change in L hip strength) STG Duration 07/16/20 (07/19/20: Moving in bed pain is 7/10) Diagnostic Medical Sonographer Goal (LTG) Pt will be able to ambulate stairs and level ground with confidence to return to dog walking with his . LTG Duration 10/01/20 Three Impairment Decreased balance, loss of balance on initial standing and after 5'. Short Term Goal (STG) Pt will be able to transfer sit to stand without fear of losing his balance, and decreased TUG score to 19 sec' s. (07/19/20: TUG score 20, improved from 24 initially. Pt is very aware and concerned with sit to stand loss of balance). STG Duration 07/16/20 (07/19/20: Improved) Diagnostic Medical Sonographer Goal (LTG) Decrease TUG time to 13-14 sec 's with pt able to stand > 5' without fear of loss of balance. LTG Duration 10/01/20 Two Impairment LLE pain from hip to foot rated 0-9/10, disturbing sleep . Short Term Goal (STG) Pt will reduce his need for Tylenol and will improve standing tolerance such that he will be able to exercise through an entire PT session. (07/19/20: Taking Tylenol in AM & PM and only 15% in afternoon, previously took AM & PM, and 2x at noon). STG Duration 07/16/20 (07/19/20: Progressing, pt rarely taking Tylenol at noon) Penitentiary Goal (LTG) Pt will be able to improve sleep duration to 6-8 hrs for the majority of the time. (07/19/20: Sleeps ~6 hrs, except last night had discomfort in the L hip and down lateral upper thigh). LTG Duration 10/01/20 (07/19/20: Sleeping ~6hrs with Tylenol) One Impairment Lacks appropriate self care HEP. Penitentiary Goal (LTG) Pt will be independent with a self care HEP. LTG Duration 10/01/20 (07/12/20: Progressing) Progress Towards Goals Progress Towards Goals Slow Progress due to Activity Tolerance Progress Comments Pt was able to tolerate more hip strengthening today. Assessment Summary Assessment Pt pelvis appear level; therefore mobilization not needed. Pt has much soft tissue pain/dysfunction of L lateral hip/TFL/Glut/Pirformis . Progression with pelvic stabilization is slow. Physical Therapy Plan Frequency and Duration Frequency of Treatment 2x/Week Plan of Care Start Date 07/19/20 Plan of Care End Date 10/17/20 Next Visit Focus/Plan Next Note Type Treatment Note Next Visit Plan Check Sacral positioning & SIJ dysfunction of flare/rotation (see assessment), Start with upright ex bike if normal pelvic alignment to progress lumbar/pelvic stabilization. Mob to sacrum as needed. Add to HEP: hip ROM (LE neural, L hip AB stretch) ex's, check hip IR/ER strength (Tests: log roll - found negative, check : Stinchfield, Distraction & Lateral compression, Thigh Thrust, Gaenslen). Monitor SIJ for possible R downslip. Lumbar/pelvic stabilization exercises.
--- NOTE | 2020-07-26 10:09 | PT.OTN ---
Current Diagnoses Osteoarthritis of hip, unspecified (07/26/20) Other intervertebral disc displacement, lumbosacral region (07/26/20) Muscle weakness (generalized) (07/26/20) Unsteadiness on feet (07/26/20) Physical Therapy Treatment Note PT-OP-A Visit Information Start: 06/02/20 18:24 Freq: Status: Active Protocol: Document 07/26/20 09:09 LRN (Rec: 07/26/20 10:07 LRN [id number]) Out-Patient Physical Therapy Visit Information Visit Information Visit Type Treatment Note Visit Start Time 09:09 Visit Stop Time 09:56 Total Visit Minutes 47 Visit Number 12 Evaluation Information Evaluation Date 06/03/20 Precautions Precautions L knee has not been able to straighten for ~ 2 yrs. Current Dx (per history review ): Left herniated disc (L5-S1 ), Hip Osteoarthritis, Polymyalgia rheumatica, spondylosis of lumbar spine, and HTN. PT-OP-B Current Condition Start: 06/02/20 18:24 Freq: Status: Active Protocol: Document 06/03/20 09:46 LRN (Rec: 06/03/20 10:43 LRN [id number]) Current Condition History of Current Condition Onset Date 2.5 months Current Complaints L hip and leg pain, buttock to foot down lateral LE. History of Current Condition Pain onset insidious. States he has disc problems in the back and it was thought he had a pinched nerve. The injection provided relief for 1.5 days. Now he feels he is getting progressively worse. Getting up in the morning pain is 8-10/10 and lessens during the day to 3-4/10. After sitting for awhile (1 hr) after walking to the kitchen his pain increases. By bedtime pain is 6-10/10. Sleeps 4-5 hrs and then must get up due to the pain. Not able to take pain pills due to bowel problems. Takes Tylenol nightly and upon waking to help control the pain. Prior Treatments and Tests Dr. Bowen gave him a shot in the back and a week lateral to hip. Pain was a little better after the injections. Pain changed from 10 to 4. Future Testing and Treatments Planned Dr. Bowen follow up in July. Treatment Goals Patient/Caregiver Goals Pt goals: Walk dog with . Decrease pain to sleep 6-8 hrs peacefully without use of Tylenol. Decrease use of Tylenol for sleep. Prior Functional Status Baseline Function- ADL's Independent Baseline Function- Mobility Independent Baseline Function- Gait Pt able to walk without difficulty. Baseline Function- Other Not able to walk with to walk dog due to feeling of leg giving way. Able to sleep 6-8 hours per night. Current Functional Impairments (Reported) Functional Limitations- Mobility/Gait Pain with walking, not steady. Functional Limitations- Recreation/ Walked with to walk dog 1 Hobb[address] mile. 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 L knee has not been able to straighten for ~ 2 yrs. Current Dx (per history review ): Left herniated disc (L5-S1 ), Hip Osteoarthritis, Polymyalgia rheumatica, spondylosis of lumbar spine, and HTN. PT-OP-C Subjective Start: 06/02/20 18:24 Freq: Status: Active Protocol: Document 07/26/20 09:09 LRN (Rec: 07/26/20 10:07 LRN [id number]) OP-PT Subjective Patient Comments Patient Comments States he rolled over in bed today and thinks his L leg was straight. Pain after therapy is 2/10. PT-OP-D Balance Start: 06/02/20 18:24 Freq: Status: Active Protocol: Document 06/03/20 09:46 LRN (Rec: 06/03/20 16:33 LRN [id number]) OP-PT Balance Assessment Standing Balance Static Standing Balance Ability Poor Dynamic Standing Balance Ability Fair Standing Balance Comments Pt has loss of balance on initial standing, using plinth to stabilized at legs and snowden as standing time increases. Pt did not tolerate static standing for > 5' before pain in LLE caused him to request sitting. Alba Fall Scale Copyright Permission PT-OP-E Functional Tests Start: 06/02/20 18:24 Freq: Status: Active Protocol: Document 07/19/20 09:01 LRN (Rec: 07/19/20 09:53 LRN [id number]) Functional Tests Timed Up and Go (TUG) Score 20 Comments Used hands to transfer TUG Impairment Rating 100% Impaired (Score 20) PT-OP-G Mobility & Gait Start: 06/02/20 18:24 Freq: Status: Active Protocol: Document 06/03/20 09:46 LRN (Rec: 06/03/20 14:51 LRN [id number]) OP Gait Assessment Gait Gait Assistance Required: Standby Assistance Distance (Feet) 60 Able to Maintain Weight Bearing Status Yes During Gait Assistive Devices Assistive Device None Gait Deviations General Gait Pattern Decreased Stride Length, Decreased Feet Clearance, Flexed Trunk,Wide Based Gait Factors Limiting Gait Function Factors Limiting Gait Function Decreased Activity Tolerance, Decreased Strength,Pain,Poor Balance PT-OP-H Neuro Start: 06/02/20 18:24 Freq: Status: Active Protocol: Document 06/03/20 09:46 LRN (Rec: 06/03/20 14:51 LRN [id number]) Sensation Evaluation Gross Sensation Gross Sensation Left LE Impaired Sensation Description Numbness,Pain Dermatome Impairments L4,L5,S1 Deep Tendon Reflex & Clonus Assessment Deep Tendon Reflex Left Achilles Deep Tendon Reflex 0 Absent Bilateral Patellar Deep Tendon Reflex 1+ Diminished PT-OP-J Posture/Palpation/Skin Start: 06/02/20 18:24 Freq: Status: Active Protocol: Document 06/03/20 09:46 LRN (Rec: 06/03/20 14:51 LRN [id number]) Posture Evaluation Position Standing Head/C-Spine Posture Forward Head L-Spine Posture Flattened Pelvis Posture Posterior Tilted Hip Posture (L) Flexed,(R) Flexed Palpation Assessment Location L TFL Palpation Location TFL Muscle belly Palpation Findings Tenderness L lateral hip Palpation Location Greater trochanter Palpation Findings Tenderness PT-OP-K Range of Motion Start: 06/02/20 18:24 Freq: Status: Active Protocol: Document 06/08/20 14:27 LRN (Rec: 06/08/20 15:30 LRN [id number]) Lumbar Spine Range of Motion Lumbar Spine Active Degrees Testing Position Standing Flexion 7 Extension 5 Lateral Flexion Left 10 Lateral Flexion Right 15 Comments Trunk flex: 5 hip flex Trunk ext: 5 hip ext PT-OP-L Special Tests Start: 06/02/20 18:24 Freq: Status: Active Protocol: Document 06/03/20 09:46 LRN (Rec: 06/03/20 14:51 LRN [id number]) Special Tests Lumbar Spine Special Tests Straight Leg Raise Test Results Neg bilaterally Comments Hamstring tightness Hip Special Tests AILEEN Test Results + R for anterior groin pain Comments Indicates 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 Indicates possible SIJ dysfunction. PT-OP-M Strength Start: 06/02/20 18:24 Freq: Status: Active Protocol: Document 07/22/20 09:09 LRN (Rec: 07/22/20 09:54 LRN [id number]) Hip Strength Hip Manual Muscle Testing Right Abduction 2 Poor Adduction 1 Trace Left Abduction 2 Poor Adduction 2+ Poor+ PT-OP-Q Treatments Start: 06/02/20 18:24 Freq: Status: Active Protocol: Document 07/26/20 09:09 LRN (Rec: 07/26/20 10:07 LRN [id number]) Cardio Equipment Bicycle (Upright) Duration (Minutes) 8 Resistance 0 Seat Position 7 Therapeutic Exercises Supine Exercises L hip AD stretch Supine Exercise Name L hip AD stretch primarily Side bilateral Reps/Minutes 5' Comments Extra time needed to determine pt max stretch position Lateral hip stretch Supine Exercise Name Lateral hip stretch Side right Reps/Minutes 2' Comments 60 stretch, extra time for positioning LE Hamstring/neural stretch Supine Exercise Name Hamstring/LE neural stretch Side left Reps/Minutes 3' Comments Extra time to determine tolerance Piriformis stretch Supine Exercise Name Knee to opposite shoulder Side right Reps/Minutes 2' Comments 60 stretch, extra time for positioning Sidelying Exercises clamshell Sidelying Exercise Name Clamshell Side right Reps/Minutes 10x Comments f/b Piriformis stretch. Tried on L, but too uncomfortable Therapeutic Activity Therapeutic Activity Rolling on plinth Name Rolling right <-> left Reps/Minutes 2' Comments Pt needed physical cuing to minimize fear of falling off plinth. Pt needed constant verbal cuing to maintain neutral spine positioning with lordosis and TA tightening. Sit <-> Supine Name Sit <-> Supine training w/TA/ anter pelvic tilt contraction Reps/Minutes 2' Comments Training from left side. Sit<->Stand Name Sit <-> Stand Reps/Minutes 2x Manual Therapy Treatment Soft Tissue Mobilization L knee lateral tendons Body Location L IT Band & lateral hamstring Mobilization Type Strumming Intensity/Depth Moderate Body Position Supine L TFL Body Location L TFL & IT Band Mobilization Type Sustained Pressure,Trigger Point Release Intensity/Depth Superficial Body Position Sidelying glutes and piriformis Body Location L side Gluteal & Piriformis Mobilization Type Strumming Intensity/Depth Moderate Body Position Sidelying Joint Mobilizations L SIJ Joint Correction for L Outflare/ anterior rot Body Position Supine Reps/Duration 5' PT-OP-T Assessment and Plan Start: 06/02/20 18:24 Freq: Status: Active Protocol: Document 07/26/20 09:09 LRN (Rec: 07/26/20 10:07 LRN [id number]) Physical Therapy Assessment Goals Four Impairment Decreased L hip strength (AB 2 +/5, AD 1/5) Short Term Goal (STG) Pt will be able to move in bed with tolerable pain. (07/19/20: No change in L hip strength) STG Duration 07/16/20 (07/19/20: Moving in bed pain is 7/10) Well Service Derrick Worker Goal (LTG) Pt will be able to ambulate stairs and level ground with confidence to return to dog walking with his . LTG Duration 10/01/20 Three Impairment Decreased balance, loss of balance on initial standing and after 5'. Short Term Goal (STG) Pt will be able to transfer sit to stand without fear of losing his balance, and decreased TUG score to 19 sec' s. (07/19/20: TUG score 20, improved from 24 initially. Pt is very aware and concerned with sit to stand loss of balance). STG Duration 07/16/20 (07/19/20: Improved) Residential Goal (LTG) Decrease TUG time to 13-14 sec 's with pt able to stand > 5' without fear of loss of balance. LTG Duration 10/01/20 Two Impairment LLE pain from hip to foot rated 0-9/10, disturbing sleep . Short Term Goal (STG) Pt will reduce his need for Tylenol and will improve standing tolerance such that he will be able to exercise through an entire PT session. (07/19/20: Taking Tylenol in AM & PM and only 15% in afternoon, previously took AM & PM, and 2x at noon). STG Duration 07/16/20 (07/19/20: Progressing, pt rarely taking Tylenol at noon) Residential Goal (LTG) Pt will be able to improve sleep duration to 6-8 hrs for the majority of the time. (07/19/20: Sleeps ~6 hrs, except last night had discomfort in the L hip and down lateral upper thigh). LTG Duration 10/01/20 (07/19/20: Sleeping ~6hrs with Tylenol) One Impairment Lacks appropriate self care HEP. Residential Goal (LTG) Pt will be independent with a self care HEP. LTG Duration 10/01/20 (07/12/20: Progressing) Progress Towards Goals Progress Comments Pt able to be corrected in L innominate and able to lay L leg straight at end of treatment. Pain decreased to 2/10 at end of treatment. Assessment Summary Assessment L SIJ was anteriorly rotated/ outflare but was able to correct. Pt very tight in L hip AD's causing initial sharp knee pain after stretching. Physical Therapy Plan Frequency and Duration Frequency of Treatment 2x/Week Plan of Care Start Date 07/19/20 Plan of Care End Date 10/17/20 Next Visit Focus/Plan Next Note Type Treatment Note Next Visit Plan Add to HEP: hip ROM L hip AB stretch, check hip IR/ER strength. Stretch L hip ER's & strengthen R if symmetry needed. Monitor Sacral positioning & SIJ dysfunction of flare/rotation (see assessment), Start with upright ex bike if normal pelvic alignment to progress lumbar/pelvic stabilization. Mob to sacrum as needed. ( Tests: log roll - found negative, check: Stinchfield, Distraction & Lateral compression, Thigh Thrust, Gaenslen). Monitor SIJ for possible R downslip. Lumbar/ pelvic stabilization exercises .
--- NOTE | 2020-07-29 16:33 | PT.OTN ---
Current Diagnoses Osteoarthritis of hip, unspecified (07/29/20) Other intervertebral disc displacement, lumbosacral region (07/29/20) Muscle weakness (generalized) (07/29/20) Unsteadiness on feet (07/29/20) Physical Therapy Treatment Note PT-OP-A Visit Information Start: 06/02/20 18:24 Freq: Status: Active Protocol: Document 07/29/20 14:35 HH (Rec: 07/29/20 16:33 HH [id number]) Out-Patient Physical Therapy Visit Information Visit Information Visit Type Treatment Note Visit Start Time 14:35 Visit Stop Time 15:15 Total Visit Minutes 40 Visit Number 13 PT-OP-B Current Condition Start: 06/02/20 18:24 Freq: Status: Active Protocol: Document 06/03/20 09:46 LRN (Rec: 06/03/20 10:43 LRN [id number]) Current Condition History of Current Condition Onset Date 2.5 months Current Complaints L hip and leg pain, buttock to foot down lateral LE. History of Current Condition Pain onset insidious. States he has disc problems in the back and it was thought he had a pinched nerve. The injection provided relief for 1.5 days. Now he feels he is getting progressively worse. Getting up in the morning pain is 8-10/10 and lessens during the day to 3-4/10. After sitting for awhile (1 hr) after walking to the kitchen his pain increases. By bedtime pain is 6-10/10. Sleeps 4-5 hrs and then must get up due to the pain. Not able to take pain pills due to bowel problems. Takes Tylenol nightly and upon waking to help control the pain. Prior Treatments and Tests Dr. Bowen gave him a shot in the back and a week lateral to hip. Pain was a little better after the injections. Pain changed from 10 to 4. Future Testing and Treatments Planned Dr. Bowen follow up in July. Treatment Goals Patient/Caregiver Goals Pt goals: Walk dog with . Decrease pain to sleep 6-8 hrs peacefully without use of Tylenol. Decrease use of Tylenol for sleep. Prior Functional Status Baseline Function- ADL's Independent Baseline Function- Mobility Independent Baseline Function- Gait Pt able to walk without difficulty. Baseline Function- Other Not able to walk with to walk dog due to feeling of leg giving way. Able to sleep 6-8 hours per night. Current Functional Impairments (Reported) Functional Limitations- Mobility/Gait Pain with walking, not steady. Functional Limitations- Recreation/ Walked with to walk dog 1 Hobbies mile. 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 L knee has not been able to straighten for ~ 2 yrs. Current Dx (per history review ): Left herniated disc (L5-S1 ), Hip Osteoarthritis, Polymyalgia rheumatica, spondylosis of lumbar spine, and HTN. PT-OP-C Subjective Start: 06/02/20 18:24 Freq: Status: Active Protocol: Document 07/29/20 14:35 HH (Rec: 07/29/20 16:33 HH [id number]) OP-PT Subjective Patient Comments Patient Comments I felt better after dry needling from Dr. Rubi yesterday. I have no pain at all when i woke up. Patient Reported Progress Improving PT-OP-D Balance Start: 06/02/20 18:24 Freq: Status: Active Protocol: Document 06/03/20 09:46 LRN (Rec: 06/03/20 16:33 LRN [id number]) OP-PT Balance Assessment Standing Balance Static Standing Balance Ability Poor Dynamic Standing Balance Ability Fair Standing Balance Comments Pt has loss of balance on initial standing, using plinth to stabilized at legs and snowden as standing time increases. Pt did not tolerate static standing for > 5' before pain in LLE caused him to request sitting. Alba Fall Scale Copyright Permission PT-OP-E Functional Tests Start: 06/02/20 18:24 Freq: Status: Active Protocol: Document 07/19/20 09:01 LRN (Rec: 07/19/20 09:53 LRN [id number]) Functional Tests Timed Up and Go (TUG) Score 20 Comments Used hands to transfer TUG Impairment Rating 100% Impaired (Score 20) PT-OP-G Mobility & Gait Start: 06/02/20 18:24 Freq: Status: Active Protocol: Document 06/03/20 09:46 LRN (Rec: 06/03/20 14:51 LRN [id number]) OP Gait Assessment Gait Gait Assistance Required: Standby Assistance Distance (Feet) 60 Able to Maintain Weight Bearing Status Yes During Gait Assistive Devices Assistive Device None Gait Deviations General Gait Pattern Decreased Stride Length, Decreased Feet Clearance, Flexed Trunk,Wide Based Gait Factors Limiting Gait Function Factors Limiting Gait Function Decreased Activity Tolerance, Decreased Strength,Pain,Poor Balance PT-OP-H Neuro Start: 06/02/20 18:24 Freq: Status: Active Protocol: Document 06/03/20 09:46 LRN (Rec: 06/03/20 14:51 LRN [id number]) Sensation Evaluation Gross Sensation Gross Sensation Left LE Impaired Sensation Description Numbness,Pain Dermatome Impairments L4,L5,S1 Deep Tendon Reflex & Clonus Assessment Deep Tendon Reflex Left Achilles Deep Tendon Reflex 0 Absent Bilateral Patellar Deep Tendon Reflex 1+ Diminished PT-OP-J Posture/Palpation/Skin Start: 06/02/20 18:24 Freq: Status: Active Protocol: Document 06/03/20 09:46 LRN (Rec: 06/03/20 14:51 LRN [id number]) Posture Evaluation Position Standing Head/C-Spine Posture Forward Head L-Spine Posture Flattened Pelvis Posture Posterior Tilted Hip Posture (L) Flexed,(R) Flexed Palpation Assessment Location L TFL Palpation Location TFL Muscle belly Palpation Findings Tenderness L lateral hip Palpation Location Greater trochanter Palpation Findings Tenderness PT-OP-K Range of Motion Start: 06/02/20 18:24 Freq: Status: Active Protocol: Document 06/08/20 14:27 LRN (Rec: 06/08/20 15:30 LRN [id number]) Lumbar Spine Range of Motion Lumbar Spine Active Degrees Testing Position Standing Flexion 7 Extension 5 Lateral Flexion Left 10 Lateral Flexion Right 15 Comments Trunk flex: 5 hip flex Trunk ext: 5 hip ext PT-OP-L Special Tests Start: 06/02/20 18:24 Freq: Status: Active Protocol: Document 06/03/20 09:46 LRN (Rec: 06/03/20 14:51 LRN [id number]) Special Tests Lumbar Spine Special Tests Straight Leg Raise Test Results Neg bilaterally Comments Hamstring tightness Hip Special Tests AILEEN Test Results + R for anterior groin pain Comments Indicates 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 Indicates possible SIJ dysfunction. PT-OP-M Strength Start: 06/02/20 18:24 Freq: Status: Active Protocol: Document 07/22/20 09:09 LRN (Rec: 07/22/20 09:54 LRN [id number]) Hip Strength Hip Manual Muscle Testing Right Abduction 2 Poor Adduction 1 Trace Left Abduction 2 Poor Adduction 2+ Poor+ PT-OP-Q Treatments Start: 06/02/20 18:24 Freq: Status: Active Protocol: Document 07/29/20 14:35 HH (Rec: 07/29/20 16:33 [id number]) Cardio Equipment Bicycle (Upright) Duration (Minutes) 8 Resistance 0 Seat Position 7 Gym Equipment Shuttle Recovery B squat Resistance 50 lbs Shuttle Recovery Platform Stable Reps/Time 8 reps x2 Therapeutic Exercises Supine Exercises Hip abduction Supine Exercise Name Hooklying hip abduction Side bilateral Resistance against PT hands Reps/Minutes 6 reps x2 Quad sets Side bilateral Equipment Used disc under knee Reps/Minutes 6 reps x2 Comments Pushing the knee down into the table Bridge Side bilateral Comments Attempted but unable to continue d/t L hip pain Sidelying Exercises clamshell Sidelying Exercise Name Clamshell Side right Reps/Minutes 10x Comments Pt reports R side is easier than the L side PT-OP-T Assessment and Plan Start: 06/02/20 18:24 Freq: Status: Active Protocol: Document 07/29/20 14:35 (Rec: 07/29/20 16:33 [id number]) Physical Therapy Assessment Goals Four Impairment Decreased L hip strength (AB 2 +/5, AD 1/5) Short Term Goal (STG) Pt will be able to move in bed with tolerable pain. (07/19/20: No change in L hip strength) STG Duration 07/16/20 (07/19/20: Moving in bed pain is 7/10) Firmware Architect Goal (LTG) Pt will be able to ambulate stairs and level ground with confidence to return to dog walking with his . LTG Duration 10/01/20 Three Impairment Decreased balance, loss of balance on initial standing and after 5'. Short Term Goal (STG) Pt will be able to transfer sit to stand without fear of losing his balance, and decreased TUG score to 19 sec' s. (07/19/20: TUG score 20, improved from 24 initially. Pt is very aware and concerned with sit to stand loss of balance). STG Duration 07/16/20 (07/19/20: Improved) Custodial Goal (LTG) Decrease TUG time to 13-14 sec 's with pt able to stand > 5' without fear of loss of balance. LTG Duration 10/01/20 Two Impairment LLE pain from hip to foot rated 0-9/10, disturbing sleep . Short Term Goal (STG) Pt will reduce his need for Tylenol and will improve standing tolerance such that he will be able to exercise through an entire PT session. (07/19/20: Taking Tylenol in AM & PM and only 15% in afternoon, previously took AM & PM, and 2x at noon). STG Duration 07/16/20 (07/19/20: Progressing, pt rarely taking Tylenol at noon) Custodial Goal (LTG) Pt will be able to improve sleep duration to 6-8 hrs for the majority of the time. (07/19/20: Sleeps ~6 hrs, except last night had discomfort in the L hip and down lateral upper thigh). LTG Duration 10/01/20 (07/19/20: Sleeping ~6hrs with Tylenol) One Impairment Lacks appropriate self care HEP. Custodial Goal (LTG) Pt will be independent with a self care HEP. LTG Duration 10/01/20 (07/12/20: Progressing) Assessment Summary Assessment Pt received dry needling tx from Dr. Rubi yesterday and no pain reported. Tx focused on strengthening therex. Pt noticed his L hip is significantly weaker than R during clamshell. Pain is at 2 /10 at most during tx. Physical Therapy Plan Frequency and Duration Frequency of Treatment 2x/Week Plan of Care Start Date 07/19/20 Plan of Care End Date 10/17/20 Next Visit Focus/Plan Next Note Type Treatment Note Next Visit Plan Add to HEP: hip ROM L hip AB stretch, check hip IR/ER strength. Stretch L hip ER's & strengthen R if symmetry needed. Monitor Sacral positioning & SIJ dysfunction of flare/rotation (see assessment), Start with upright ex bike if normal pelvic alignment to progress lumbar/pelvic stabilization. Mob to sacrum as needed. ( Tests: log roll - found negative, check: Stinchfield, Distraction & Lateral compression, Thigh Thrust, Gaenslen). Monitor SIJ for possible R downslip. Lumbar/ pelvic stabilization exercises .
--- NOTE | 2020-08-02 08:59 | PT.OTN ---
Current Diagnoses Osteoarthritis of hip, unspecified (08/02/20) Other intervertebral disc displacement, lumbosacral region (08/02/20) Muscle weakness (generalized) (08/02/20) Unsteadiness on feet (08/02/20) Physical Therapy Treatment Note PT-OP-A Visit Information Start: 06/02/20 18:24 Freq: Status: Active Protocol: Document 08/02/20 08:16 HH (Rec: 08/02/20 08:58 HH [id number]) Out-Patient Physical Therapy Visit Information Visit Information Visit Type Treatment Note Visit Note Pt is going to have dry needling tx on Sun with Dr. Rubi Visit Start Time 08:16 Visit Stop Time 09:00 Total Visit Minutes 44 Visit Number 14 PT-OP-B Current Condition Start: 06/02/20 18:24 Freq: Status: Active Protocol: Document 06/03/20 09:46 LRN (Rec: 06/03/20 10:43 LRN [id number]) Current Condition History of Current Condition Onset Date 2.5 months Current Complaints L hip and leg pain, buttock to foot down lateral LE. History of Current Condition Pain onset insidious. States he has disc problems in the back and it was thought he had a pinched nerve. The injection provided relief for 1.5 days. Now he feels he is getting progressively worse. Getting up in the morning pain is 8-10/10 and lessens during the day to 3-4/10. After sitting for awhile (1 hr) after walking to the kitchen his pain increases. By bedtime pain is 6-10/10. Sleeps 4-5 hrs and then must get up due to the pain. Not able to take pain pills due to bowel problems. Takes Tylenol nightly and upon waking to help control the pain. Prior Treatments and Tests Dr. Bowen gave him a shot in the back and a week lateral to hip. Pain was a little better after the injections. Pain changed from 10 to 4. Future Testing and Treatments Planned Dr. Bowen follow up in July. Treatment Goals Patient/Caregiver Goals Pt goals: Walk dog with . Decrease pain to sleep 6-8 hrs peacefully without use of Tylenol. Decrease use of Tylenol for sleep. Prior Functional Status Baseline Function- ADL's Independent Baseline Function- Mobility Independent Baseline Function- Gait Pt able to walk without difficulty. Baseline Function- Other Not able to walk with to walk dog due to feeling of leg giving way. Able to sleep 6-8 hours per night. Current Functional Impairments (Reported) Functional Limitations- Mobility/Gait Pain with walking, not steady. Functional Limitations- Recreation/ Walked with to walk dog 1 Hobbies mile. 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 L knee has not been able to straighten for ~ 2 yrs. Current Dx (per history review ): Left herniated disc (L5-S1 ), Hip Osteoarthritis, Polymyalgia rheumatica, spondylosis of lumbar spine, and HTN. PT-OP-C Subjective Start: 06/02/20 18:24 Freq: Status: Active Protocol: Document 08/02/20 08:16 HH (Rec: 08/02/20 08:58 HH [id number]) OP-PT Subjective Patient Comments Patient Comments I felt pretty good for the past couple days. Had a few hours that got sore at my hip. And I felt fine after we did some strengthening. However, I did get a electric shock at my inside of the L foot sometimes but i dont know why. Patient Reported Progress Improving PT-OP-D Balance Start: 06/02/20 18:24 Freq: Status: Active Protocol: Document 06/03/20 09:46 LRN (Rec: 06/03/20 16:33 LRN [id number]) OP-PT Balance Assessment Standing Balance Static Standing Balance Ability Poor Dynamic Standing Balance Ability Fair Standing Balance Comments Pt has loss of balance on initial standing, using plinth to stabilized at legs and snowden as standing time increases. Pt did not tolerate static standing for > 5' before pain in LLE caused him to request sitting. Alba Fall Scale Copyright Permission PT-OP-E Functional Tests Start: 06/02/20 18:24 Freq: Status: Active Protocol: Document 07/19/20 09:01 LRN (Rec: 07/19/20 09:53 LRN [id number]) Functional Tests Timed Up and Go (TUG) Score 20 Comments Used hands to transfer TUG Impairment Rating 100% Impaired (Score 20) PT-OP-G Mobility & Gait Start: 06/02/20 18:24 Freq: Status: Active Protocol: Document 06/03/20 09:46 LRN (Rec: 06/03/20 14:51 LRN [id number]) OP Gait Assessment Gait Gait Assistance Required: Standby Assistance Distance (Feet) 60 Able to Maintain Weight Bearing Status Yes During Gait Assistive Devices Assistive Device None Gait Deviations General Gait Pattern Decreased Stride Length, Decreased Feet Clearance, Flexed Trunk,Wide Based Gait Factors Limiting Gait Function Factors Limiting Gait Function Decreased Activity Tolerance, Decreased Strength,Pain,Poor Balance PT-OP-H Neuro Start: 06/02/20 18:24 Freq: Status: Active Protocol: Document 06/03/20 09:46 LRN (Rec: 06/03/20 14:51 LRN [id number]) Sensation Evaluation Gross Sensation Gross Sensation Left LE Impaired Sensation Description Numbness,Pain Dermatome Impairments L4,L5,S1 Deep Tendon Reflex & Clonus Assessment Deep Tendon Reflex Left Achilles Deep Tendon Reflex 0 Absent Bilateral Patellar Deep Tendon Reflex 1+ Diminished PT-OP-J Posture/Palpation/Skin Start: 06/02/20 18:24 Freq: Status: Active Protocol: Document 06/03/20 09:46 LRN (Rec: 06/03/20 14:51 LRN [id number]) Posture Evaluation Position Standing Head/C-Spine Posture Forward Head L-Spine Posture Flattened Pelvis Posture Posterior Tilted Hip Posture (L) Flexed,(R) Flexed Palpation Assessment Location L TFL Palpation Location TFL Muscle belly Palpation Findings Tenderness L lateral hip Palpation Location Greater trochanter Palpation Findings Tenderness PT-OP-K Range of Motion Start: 06/02/20 18:24 Freq: Status: Active Protocol: Document 06/08/20 14:27 LRN (Rec: 06/08/20 15:30 LRN [id number]) Lumbar Spine Range of Motion Lumbar Spine Active Degrees Testing Position Standing Flexion 7 Extension 5 Lateral Flexion Left 10 Lateral Flexion Right 15 Comments Trunk flex: 5 hip flex Trunk ext: 5 hip ext PT-OP-L Special Tests Start: 06/02/20 18:24 Freq: Status: Active Protocol: Document 06/03/20 09:46 LRN (Rec: 06/03/20 14:51 LRN [id number]) Special Tests Lumbar Spine Special Tests Straight Leg Raise Test Results Neg bilaterally Comments Hamstring tightness Hip Special Tests AILEEN Test Results + R for anterior groin pain Comments Indicates possible SIJ dysfunction Other Special Tests Special Tests December Test: + Right. Indicates possible SIJ dysfunction. PT-OP-M Strength Start: 06/02/20 18:24 Freq: Status: Active Protocol: Document 07/22/20 09:09 LRN (Rec: 07/22/20 09:54 LRN [id number]) Hip Strength Hip Manual Muscle Testing Right Abduction 2 Poor Adduction 1 Trace Left Abduction 2 Poor Adduction 2+ Poor+ PT-OP-Q Treatments Start: 06/02/20 18:24 Freq: Status: Active Protocol: Document 08/02/20 08:16 (Rec: 08/02/20 08:58 HH [id number]) Cardio Equipment Bicycle (Upright) Duration (Minutes) 8 Resistance 0 Seat Position 7 Gym Equipment Shuttle Recovery uni squat Resistance #37 Shuttle Recovery Platform Stable Reps/Time 10 reps x 2, pt stated R LE is 30% better. B squat Resistance 50 lbs then 75# Shuttle Recovery Platform Stable Reps/Time 10 reps x2 Therapeutic Exercises Supine Exercises supine marches Side bilateral Reps/Minutes 10 x2 Comments no discomfort noted supine hip ER Side bilateral Reps/Minutes 8x2 Sidelying Exercises clamshell Sidelying Exercise Name Clamshell Side right Reps/Minutes 10x Comments Pt reports R side is easier than the L side Manual Therapy Treatment Soft Tissue Mobilization glutes and piriformis Body Location L side Gluteal & Piriformis Mobilization Type Strumming Intensity/Depth Moderate Body Position Sidelying Comments less sensitive to pressure noted today Manual Traction L hip Details distraction Body Position Supine Reps/Duration 8 sec hold x 6 PT-OP-T Assessment and Plan Start: 06/02/20 18:24 Freq: Status: Active Protocol: Document 08/02/20 08:16 (Rec: 08/02/20 08:58 [id number]) Physical Therapy Assessment Goals Four Impairment Decreased L hip strength (AB 2 +/5, AD 1/5) Short Term Goal (STG) Pt will be able to move in bed with tolerable pain. (07/19/20: No change in L hip strength) STG Duration 07/16/20 (07/19/20: Moving in bed pain is 7/10) Longterm Goal (LTG) Pt will be able to ambulate stairs and level ground with confidence to return to dog walking with his . LTG Duration 10/01/20 Three Impairment Decreased balance, loss of balance on initial standing and after 5'. Short Term Goal (STG) Pt will be able to transfer sit to stand without fear of losing his balance, and decreased TUG score to 19 sec' s. (07/19/20: TUG score 20, improved from 24 initially. Pt is very aware and concerned with sit to stand loss of balance). STG Duration 07/16/20 (07/19/20: Improved) College Associate Goal (LTG) Decrease TUG time to 13-14 sec 's with pt able to stand > 5' without fear of loss of balance. LTG Duration 10/01/20 Two Impairment LLE pain from hip to foot rated 0-9/10, disturbing sleep . Short Term Goal (STG) Pt will reduce his need for Tylenol and will improve standing tolerance such that he will be able to exercise through an entire PT session. (07/19/20: Taking Tylenol in AM & PM and only 15% in afternoon, previously took AM & PM, and 2x at noon). STG Duration 07/16/20 (07/19/20: Progressing, pt rarely taking Tylenol at noon) Longterm Goal (LTG) Pt will be able to improve sleep duration to 6-8 hrs for the majority of the time. (07/19/20: Sleeps ~6 hrs, except last night had discomfort in the L hip and down lateral upper thigh). LTG Duration 10/01/20 (07/19/20: Sleeping ~6hrs with Tylenol) One Impairment Lacks appropriate self care HEP. College Associate Goal (LTG) Pt will be independent with a self care HEP. LTG Duration 10/01/20 (07/12/20: Progressing) Assessment Summary Assessment Pt came in to session with [facility] at 12/29 and left with -12/01. Tx focused on strengthening especially for hip stabilizers. Pt cont to show improvements who was able to get in & out of the bed quicker with less discomfort. Physical Therapy Plan Frequency and Duration Frequency of Treatment 2x/Week Plan of Care Start Date 07/19/20 Plan of Care End Date 10/17/20 Next Visit Focus/Plan Next Note Type Treatment Note Next Visit Plan Add to HEP: hip ROM L hip AB stretch, check hip IR/ER strength. Stretch L hip ER's & strengthen R if symmetry needed. Monitor Sacral positioning & SIJ dysfunction of flare/rotation (see assessment), Start with upright ex bike if normal pelvic alignment to progress lumbar/pelvic stabilization. Mob to sacrum as needed. ( Tests: log roll - found negative, check: Stinchfield, Distraction & Lateral compression, Thigh Thrust, Gaenslen). Monitor SIJ for possible R downslip. Lumbar/ pelvic stabilization exercises .
--- NOTE | 2020-08-05 09:01 | PT.OTN ---
Current Diagnoses Osteoarthritis of hip, unspecified (08/05/20) Other intervertebral disc displacement, lumbosacral region (08/05/20) Muscle weakness (generalized) (08/05/20) Unsteadiness on feet (08/05/20) Physical Therapy Treatment Note PT-OP-A Visit Information Start: 06/02/20 18:24 Freq: Status: Active Protocol: Document 08/05/20 08:10 HH (Rec: 08/05/20 09:01 HH [id number]) Out-Patient Physical Therapy Visit Information Visit Information Visit Type Treatment Note Visit Note Pt received dry needling tx on Sun with Dr. Rubi (back and hip) Visit Start Time 08:16 Visit Stop Time 08:59 Total Visit Minutes 43 Visit Number 15 PT-OP-B Current Condition Start: 06/02/20 18:24 Freq: Status: Active Protocol: Document 06/03/20 09:46 LRN (Rec: 06/03/20 10:43 LRN [id number]) Current Condition History of Current Condition Onset Date 2.5 months Current Complaints L hip and leg pain, buttock to foot down lateral LE. History of Current Condition Pain onset insidious. States he has disc problems in the back and it was thought he had a pinched nerve. The injection provided relief for 1.5 days. Now he feels he is getting progressively worse. Getting up in the morning pain is 8-10/10 and lessens during the day to 3-4/10. After sitting for awhile (1 hr) after walking to the kitchen his pain increases. By bedtime pain is 6-10/10. Sleeps 4-5 hrs and then must get up due to the pain. Not able to take pain pills due to bowel problems. Takes Tylenol nightly and upon waking to help control the pain. Prior Treatments and Tests Dr. Bowen gave him a shot in the back and a week lateral to hip. Pain was a little better after the injections. Pain changed from 10 to 4. Future Testing and Treatments Planned Dr. Bowen follow up in July. Treatment Goals Patient/Caregiver Goals Pt goals: Walk dog with . Decrease pain to sleep 6-8 hrs peacefully without use of Tylenol. Decrease use of Tylenol for sleep. Prior Functional Status Baseline Function- ADL's Independent Baseline Function- Mobility Independent Baseline Function- Gait Pt able to walk without difficulty. Baseline Function- Other Not able to walk with to walk dog due to feeling of leg giving way. Able to sleep 6-8 hours per night. Current Functional Impairments (Reported) Functional Limitations- Mobility/Gait Pain with walking, not steady. Functional Limitations- Recreation/ Walked with to walk dog 1 Hobb[address] mile. 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 L knee has not been able to straighten for ~ 2 yrs. Current Dx (per history review ): Left herniated disc (L5-S1 ), Hip Osteoarthritis, Polymyalgia rheumatica, spondylosis of lumbar spine, and HTN. PT-OP-C Subjective Start: 06/02/20 18:24 Freq: Status: Active Protocol: Document 08/05/20 08:10 HH (Rec: 08/05/20 09:01 HH [id number]) OP-PT Subjective Patient Comments Patient Comments I had the dry needling yesterday again and i feel pretty good now. The weight training that we have been doing is helpful. Ludmila been sleeping well for the past 10 days. Patient Reported Progress Improving PT-OP-D Balance Start: 06/02/20 18:24 Freq: Status: Active Protocol: Document 06/03/20 09:46 LRN (Rec: 06/03/20 16:33 LRN [id number]) OP-PT Balance Assessment Standing Balance Static Standing Balance Ability Poor Dynamic Standing Balance Ability Fair Standing Balance Comments Pt has loss of balance on initial standing, using plinth to stabilized at legs and snowden as standing time increases. Pt did not tolerate static standing for > 5' before pain in LLE caused him to request sitting. Alba Fall Scale Copyright Permission PT-OP-E Functional Tests Start: 06/02/20 18:24 Freq: Status: Active Protocol: Document 07/19/20 09:01 LRN (Rec: 07/19/20 09:53 LRN [id number]) Functional Tests Timed Up and Go (TUG) Score 20 Comments Used hands to transfer TUG Impairment Rating 100% Impaired (Score 20) PT-OP-G Mobility & Gait Start: 06/02/20 18:24 Freq: Status: Active Protocol: Document 06/03/20 09:46 LRN (Rec: 06/03/20 14:51 LRN [id number]) OP Gait Assessment Gait Gait Assistance Required: Standby Assistance Distance (Feet) 60 Able to Maintain Weight Bearing Status Yes During Gait Assistive Devices Assistive Device None Gait Deviations General Gait Pattern Decreased Stride Length, Decreased Feet Clearance, Flexed Trunk,Wide Based Gait Factors Limiting Gait Function Factors Limiting Gait Function Decreased Activity Tolerance, Decreased Strength,Pain,Poor Balance PT-OP-H Neuro Start: 06/02/20 18:24 Freq: Status: Active Protocol: Document 06/03/20 09:46 LRN (Rec: 06/03/20 14:51 LRN [id number]) Sensation Evaluation Gross Sensation Gross Sensation Left LE Impaired Sensation Description Numbness,Pain Dermatome Impairments L4,L5,S1 Deep Tendon Reflex & Clonus Assessment Deep Tendon Reflex Left Achilles Deep Tendon Reflex 0 Absent Bilateral Patellar Deep Tendon Reflex 1+ Diminished PT-OP-J Posture/Palpation/Skin Start: 06/02/20 18:24 Freq: Status: Active Protocol: Document 06/03/20 09:46 LRN (Rec: 06/03/20 14:51 LRN [id number]) Posture Evaluation Position Standing Head/C-Spine Posture Forward Head L-Spine Posture Flattened Pelvis Posture Posterior Tilted Hip Posture (L) Flexed,(R) Flexed Palpation Assessment Location L TFL Palpation Location TFL Muscle belly Palpation Findings Tenderness L lateral hip Palpation Location Greater trochanter Palpation Findings Tenderness PT-OP-K Range of Motion Start: 06/02/20 18:24 Freq: Status: Active Protocol: Document 06/08/20 14:27 LRN (Rec: 06/08/20 15:30 LRN [id number]) Lumbar Spine Range of Motion Lumbar Spine Active Degrees Testing Position Standing Flexion 7 Extension 5 Lateral Flexion Left 10 Lateral Flexion Right 15 Comments Trunk flex: 5 hip flex Trunk ext: 5 hip ext PT-OP-L Special Tests Start: 06/02/20 18:24 Freq: Status: Active Protocol: Document 06/03/20 09:46 LRN (Rec: 06/03/20 14:51 LRN [id number]) Special Tests Lumbar Spine Special Tests Straight Leg Raise Test Results Neg bilaterally Comments Hamstring tightness Hip Special Tests AILEEN Test Results + R for anterior groin pain Comments Indicates 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 Indicates possible SIJ dysfunction. PT-OP-M Strength Start: 06/02/20 18:24 Freq: Status: Active Protocol: Document 07/22/20 09:09 LRN (Rec: 07/22/20 09:54 LRN [id number]) Hip Strength Hip Manual Muscle Testing Right Abduction 2 Poor Adduction 1 Trace Left Abduction 2 Poor Adduction 2+ Poor+ PT-OP-Q Treatments Start: 06/02/20 18:24 Freq: Status: Active Protocol: Document 08/05/20 08:10 HH (Rec: 08/05/20 09:01 [id number]) Cardio Equipment Recumbent Stepper (Sci-Fit) Duration (Minutes) 5 Resistance 3 Seat Position 14 Other no discomfort noted Gym Equipment Shuttle Recovery uni squat Resistance #37, #50 Shuttle Recovery Platform Stable Reps/Time 10 reps x 2 B squat Resistance 50 lbs, 75#, 87# Shuttle Recovery Platform Stable Reps/Time 10 reps x2 Therapeutic Exercises Supine Exercises supine marches Side bilateral Reps/Minutes 10 x2 Comments no discomfort noted supine hip ER Side bilateral Equipment Used yellow theraband Reps/Minutes 8x2 Comments no discomfort Sidelying Exercises clamshell Sidelying Exercise Name Clamshell Side right Reps/Minutes 10x 2 Comments improved performance on L, similar strength. Manual Therapy Treatment Soft Tissue Mobilization glutes and piriformis Body Location L side Gluteal & Piriformis Mobilization Type Strumming Intensity/Depth Moderate Body Position Sidelying Comments less sensitive to pressure noted today Joint Mobilizations L hip Joint with hip extension (JETT) Direction Anterior glide Grade II Body Position Sidelying Reps/Duration 10 Comments no pain with hip extension Manual Traction L hip Details distraction Body Position Supine Reps/Duration 8 sec hold x 6 PT-OP-T Assessment and Plan Start: 06/02/20 18:24 Freq: Status: Active Protocol: Document 08/05/20 08:10 HH (Rec: 08/05/20 09:01 [id number]) Physical Therapy Assessment Goals Four Impairment Decreased L hip strength (AB 2 +/5, AD 1/5) Short Term Goal (STG) Pt will be able to move in bed with tolerable pain. (07/19/20: No change in L hip strength) STG Duration 07/16/20 (07/19/20: Moving in bed pain is 7/10) Car Rental Agent Goal (LTG) Pt will be able to ambulate stairs and level ground with confidence to return to dog walking with his . LTG Duration 10/01/20 Three Impairment Decreased balance, loss of balance on initial standing and after 5'. Short Term Goal (STG) Pt will be able to transfer sit to stand without fear of losing his balance, and decreased TUG score to 19 sec' s. (07/19/20: TUG score 20, improved from 24 initially. Pt is very aware and concerned with sit to stand loss of balance). STG Duration 07/16/20 (07/19/20: Improved) Car Rental Agent Goal (LTG) Decrease TUG time to 13-14 sec 's with pt able to stand > 5' without fear of loss of balance. LTG Duration 10/01/20 Two Impairment LLE pain from hip to foot rated 0-9/10, disturbing sleep . Short Term Goal (STG) Pt will reduce his need for Tylenol and will improve standing tolerance such that he will be able to exercise through an entire PT session. (07/19/20: Taking Tylenol in AM & PM and only 15% in afternoon, previously took AM & PM, and 2x at noon). STG Duration 07/16/20 (07/19/20: Progressing, pt rarely taking Tylenol at noon) Car Rental Agent Goal (LTG) Pt will be able to improve sleep duration to 6-8 hrs for the majority of the time. (07/19/20: Sleeps ~6 hrs, except last night had discomfort in the L hip and down lateral upper thigh). LTG Duration 10/01/20 (07/19/20: Sleeping ~6hrs with Tylenol) One Impairment Lacks appropriate self care HEP. Detention Goal (LTG) Pt will be independent with a self care HEP. LTG Duration 10/01/20 (07/12/20: Progressing) Assessment Summary Assessment Pt monserrat session very well. Discomfort 2-3/10 when he came in, Tx focused on hip strengthening in supine and SL position. Will introduce gravity position progressively for hip strengthening. Physical Therapy Plan Frequency and Duration Frequency of Treatment 2x/Week Plan of Care Start Date 07/19/20 Plan of Care End Date 10/17/20 Next Visit Focus/Plan Next Note Type Treatment Note Next Visit Plan Add to HEP: hip ROM L hip AB stretch, check hip IR/ER strength. Stretch L hip ER's & strengthen R if symmetry needed. Monitor Sacral positioning & SIJ dysfunction of flare/rotation (see assessment), Start with upright ex bike if normal pelvic alignment to progress lumbar/pelvic stabilization. Mob to sacrum as needed. ( Tests: log roll - found negative, check: Stinchfield, Distraction & Lateral compression, Thigh Thrust, Gaenslen). Monitor SIJ for possible R downslip. Lumbar/ pelvic stabilization exercises .
--- NOTE | 2020-08-10 12:16 | PT.OTN ---
Current Diagnoses Osteoarthritis of hip, unspecified (08/10/20) Other intervertebral disc displacement, lumbosacral region (08/10/20) Muscle weakness (generalized) (08/10/20) Unsteadiness on feet (08/10/20) Physical Therapy Treatment Note PT-OP-A Visit Information Start: 06/02/20 18:24 Freq: Status: Active Protocol: Document 08/10/20 09:02 HH (Rec: 08/10/20 10:53 HH [id number]) Out-Patient Physical Therapy Visit Information Visit Information Visit Type Treatment Note Visit Note Pt received dry needling tx on Sun with Dr. Rubi (back and hip) Visit Start Time 09:02 Visit Stop Time 09:45 Total Visit Minutes 43 Visit Number 16 PT-OP-B Current Condition Start: 06/02/20 18:24 Freq: Status: Active Protocol: Document 06/03/20 09:46 LRN (Rec: 06/03/20 10:43 LRN [id number]) Current Condition History of Current Condition Onset Date 2.5 months Current Complaints L hip and leg pain, buttock to foot down lateral LE. History of Current Condition Pain onset insidious. States he has disc problems in the back and it was thought he had a pinched nerve. The injection provided relief for 1.5 days. Now he feels he is getting progressively worse. Getting up in the morning pain is 8-10/10 and lessens during the day to 3-4/10. After sitting for awhile (1 hr) after walking to the kitchen his pain increases. By bedtime pain is 6-10/10. Sleeps 4-5 hrs and then must get up due to the pain. Not able to take pain pills due to bowel problems. Takes Tylenol nightly and upon waking to help control the pain. Prior Treatments and Tests Dr. Bowen gave him a shot in the back and a week lateral to hip. Pain was a little better after the injections. Pain changed from 10 to 4. Future Testing and Treatments Planned Dr. Bowen follow up in July. Treatment Goals Patient/Caregiver Goals Pt goals: Walk dog with . Decrease pain to sleep 6-8 hrs peacefully without use of Tylenol. Decrease use of Tylenol for sleep. Prior Functional Status Baseline Function- ADL's Independent Baseline Function- Mobility Independent Baseline Function- Gait Pt able to walk without difficulty. Baseline Function- Other Not able to walk with to walk dog due to feeling of leg giving way. Able to sleep 6-8 hours per night. Current Functional Impairments (Reported) Functional Limitations- Mobility/Gait Pain with walking, not steady. Functional Limitations- Recreation/ Walked with to walk dog 1 Hobbies mile. 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 L knee has not been able to straighten for ~ 2 yrs. Current Dx (per history review ): Left herniated disc (L5-S1 ), Hip Osteoarthritis, Polymyalgia rheumatica, spondylosis of lumbar spine, and HTN. PT-OP-C Subjective Start: 06/02/20 18:24 Freq: Status: Active Protocol: Document 08/10/20 09:02 HH (Rec: 08/10/20 10:53 HH [id number]) OP-PT Subjective Patient Comments Patient Comments I feel pretty good this morning with 2-3/10 discomfort . My weekend was like a -04/30 . My thurs and fri was not bad at all Patient Reported Progress Same PT-OP-D Balance Start: 06/02/20 18:24 Freq: Status: Active Protocol: Document 06/03/20 09:46 LRN (Rec: 06/03/20 16:33 LRN [id number]) OP-PT Balance Assessment Standing Balance Static Standing Balance Ability Poor Dynamic Standing Balance Ability Fair Standing Balance Comments Pt has loss of balance on initial standing, using plinth to stabilized at legs and snowden as standing time increases. Pt did not tolerate static standing for > 5' before pain in LLE caused him to request sitting. Alba Fall Scale Copyright Permission PT-OP-E Functional Tests Start: 06/02/20 18:24 Freq: Status: Active Protocol: Document 07/19/20 09:01 LRN (Rec: 07/19/20 09:53 LRN [id number]) Functional Tests Timed Up and Go (TUG) Score 20 Comments Used hands to transfer TUG Impairment Rating 100% Impaired (Score 20) PT-OP-G Mobility & Gait Start: 06/02/20 18:24 Freq: Status: Active Protocol: Document 06/03/20 09:46 LRN (Rec: 06/03/20 14:51 LRN [id number]) OP Gait Assessment Gait Gait Assistance Required: Standby Assistance Distance (Feet) 60 Able to Maintain Weight Bearing Status Yes During Gait Assistive Devices Assistive Device None Gait Deviations General Gait Pattern Decreased Stride Length, Decreased Feet Clearance, Flexed Trunk,Wide Based Gait Factors Limiting Gait Function Factors Limiting Gait Function Decreased Activity Tolerance, Decreased Strength,Pain,Poor Balance PT-OP-H Neuro Start: 06/02/20 18:24 Freq: Status: Active Protocol: Document 06/03/20 09:46 LRN (Rec: 06/03/20 14:51 LRN [id number]) Sensation Evaluation Gross Sensation Gross Sensation Left LE Impaired Sensation Description Numbness,Pain Dermatome Impairments L4,L5,S1 Deep Tendon Reflex & Clonus Assessment Deep Tendon Reflex Left Achilles Deep Tendon Reflex 0 Absent Bilateral Patellar Deep Tendon Reflex 1+ Diminished PT-OP-J Posture/Palpation/Skin Start: 06/02/20 18:24 Freq: Status: Active Protocol: Document 06/03/20 09:46 LRN (Rec: 06/03/20 14:51 LRN [id number]) Posture Evaluation Position Standing Head/C-Spine Posture Forward Head L-Spine Posture Flattened Pelvis Posture Posterior Tilted Hip Posture (L) Flexed,(R) Flexed Palpation Assessment Location L TFL Palpation Location TFL Muscle belly Palpation Findings Tenderness L lateral hip Palpation Location Greater trochanter Palpation Findings Tenderness PT-OP-K Range of Motion Start: 06/02/20 18:24 Freq: Status: Active Protocol: Document 06/08/20 14:27 LRN (Rec: 06/08/20 15:30 LRN [id number]) Lumbar Spine Range of Motion Lumbar Spine Active Degrees Testing Position Standing Flexion 7 Extension 5 Lateral Flexion Left 10 Lateral Flexion Right 15 Comments Trunk flex: 5 hip flex Trunk ext: 5 hip ext PT-OP-L Special Tests Start: 06/02/20 18:24 Freq: Status: Active Protocol: Document 06/03/20 09:46 LRN (Rec: 06/03/20 14:51 LRN [id number]) Special Tests Lumbar Spine Special Tests Straight Leg Raise Test Results Neg bilaterally Comments Hamstring tightness Hip Special Tests AILEEN Test Results + R for anterior groin pain Comments Indicates 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 Indicates possible SIJ dysfunction. PT-OP-M Strength Start: 06/02/20 18:24 Freq: Status: Active Protocol: Document 07/22/20 09:09 LRN (Rec: 07/22/20 09:54 LRN [id number]) Hip Strength Hip Manual Muscle Testing Right Abduction 2 Poor Adduction 1 Trace Left Abduction 2 Poor Adduction 2+ Poor+ PT-OP-Q Treatments Start: 06/02/20 18:24 Freq: Status: Active Protocol: Document 08/10/20 09:02 (Rec: 08/10/20 10:53 [id number]) Cardio Equipment Recumbent Bicycle Duration (Minutes) 8 Resistance 5 Seat Position 6 Gym Equipment Shuttle Recovery uni squat Resistance #50 Shuttle Recovery Platform Stable Reps/Time 10 reps x 2 B squat Resistance 50 lbs, 75#, 87# Shuttle Recovery Platform Stable Reps/Time 10 reps x2 Therapeutic Exercises Supine Exercises Fig 4 stretch Side bilateral Reps/Minutes 10 sec hold x5 Comments for HEP Piriformis stretch Side bilateral Reps/Minutes 10 sec hold x5 Comments for HEP Bridge Side bilateral Reps/Minutes 6 x2 Comments for HEP, discomfort noted at end range. Sidelying Exercises clamshell Sidelying Exercise Name Clamshell Side bilateral Reps/Minutes 10x 2 Manual Therapy Treatment Soft Tissue Mobilization Hip adductors Body Location R Mobilization Type Rolling Intensity/Depth Superficial Body Position Hooklying Comments Increased tenderness noted. Quad Body Location R Mobilization Type Rolling Intensity/Depth Superficial Body Position Supine Comments Increased tenderness noted. glutes and piriformis Body Location L side Gluteal & Piriformis Mobilization Type Strumming Intensity/Depth Moderate Body Position Sidelying Comments less sensitive to pressure noted today PT-OP-T Assessment and Plan Start: 06/02/20 18:24 Freq: Status: Active Protocol: Document 08/10/20 09:02 (Rec: 08/10/20 10:53 [id number]) Physical Therapy Assessment Goals Four Impairment Decreased L hip strength (AB 2 +/5, AD 1/5) Short Term Goal (STG) Pt will be able to move in bed with tolerable pain. (07/19/20: No change in L hip strength) STG Duration 07/16/20 (07/19/20: Moving in bed pain is 7/10) Custodial Goal (LTG) Pt will be able to ambulate stairs and level ground with confidence to return to dog walking with his . LTG Duration 10/01/20 Three Impairment Decreased balance, loss of balance on initial standing and after 5'. Short Term Goal (STG) Pt will be able to transfer sit to stand without fear of losing his balance, and decreased TUG score to 19 sec' s. (07/19/20: TUG score 20, improved from 24 initially. Pt is very aware and concerned with sit to stand loss of balance). STG Duration 07/16/20 (07/19/20: Improved) Grease Maker Head Goal (LTG) Decrease TUG time to 13-14 sec 's with pt able to stand > 5' without fear of loss of balance. LTG Duration 10/01/20 Two Impairment LLE pain from hip to foot rated 0-9/10, disturbing sleep . Short Term Goal (STG) Pt will reduce his need for Tylenol and will improve standing tolerance such that he will be able to exercise through an entire PT session. (07/19/20: Taking Tylenol in AM & PM and only 15% in afternoon, previously took AM & PM, and 2x at noon). STG Duration 07/16/20 (07/19/20: Progressing, pt rarely taking Tylenol at noon) Grease Maker Head Goal (LTG) Pt will be able to improve sleep duration to 6-8 hrs for the majority of the time. (07/19/20: Sleeps ~6 hrs, except last night had discomfort in the L hip and down lateral upper thigh). LTG Duration 10/01/20 (07/19/20: Sleeping ~6hrs with Tylenol) One Impairment Lacks appropriate self care HEP. Custodial Goal (LTG) Pt will be independent with a self care HEP. LTG Duration 10/01/20 (07/12/20: Progressing) Assessment Summary Assessment Pt came in today feeling good 2-3/10 but reported that he had increased pain over the weekend. Pt had some increased muscle tension in the hip, more in the R than the L. Pt felt better after STM on R quad and hip adductors. Bridging and sidelying clamshell were added to his HEP to strengthen the hip muscles. Pt c/o of discomfort when performing bridging and was instructed to go through pain-free range and keep the knees apart for bridging. Pt was able to demonstrate good understanding of the instructions. Physical Therapy Plan Frequency and Duration Frequency of Treatment 2x/Week Plan of Care Start Date 07/19/20 Plan of Care End Date 10/17/20 Next Visit Focus/Plan Next Note Type Treatment Note Next Visit Plan Add to HEP: hip ROM L hip AB stretch, check hip IR/ER strength. Stretch L hip ER's & strengthen R if symmetry needed. Monitor Sacral positioning & SIJ dysfunction of flare/rotation (see assessment), Start with upright ex bike if normal pelvic alignment to progress lumbar/pelvic stabilization. Mob to sacrum as needed. ( Tests: log roll - found negative, check: Stinchfield, Distraction & Lateral compression, Thigh Thrust, Gaenslen). Monitor SIJ for possible R downslip. Lumbar/ pelvic stabilization exercises .
--- NOTE | 2020-08-12 11:16 | PT.OTN ---
Current Diagnoses Osteoarthritis of hip, unspecified (08/12/20) Other intervertebral disc displacement, lumbosacral region (08/12/20) Muscle weakness (generalized) (08/12/20) Unsteadiness on feet (08/12/20) Physical Therapy Treatment Note PT-OP-A Visit Information Start: 06/02/20 18:24 Freq: Status: Active Protocol: Document 08/12/20 10:36 HH (Rec: 08/12/20 11:15 HH [id number]) Out-Patient Physical Therapy Visit Information Visit Information Visit Type Treatment Note Visit Start Time 10:39 Visit Stop Time 11:15 Total Visit Minutes 41 Visit Number 17 PT-OP-B Current Condition Start: 06/02/20 18:24 Freq: Status: Active Protocol: Document 06/03/20 09:46 LRN (Rec: 06/03/20 10:43 LRN [id number]) Current Condition History of Current Condition Onset Date 2.5 months Current Complaints L hip and leg pain, buttock to foot down lateral LE. History of Current Condition Pain onset insidious. States he has disc problems in the back and it was thought he had a pinched nerve. The injection provided relief for 1.5 days. Now he feels he is getting progressively worse. Getting up in the morning pain is 8-10/10 and lessens during the day to 3-4/10. After sitting for awhile (1 hr) after walking to the kitchen his pain increases. By bedtime pain is 6-10/10. Sleeps 4-5 hrs and then must get up due to the pain. Not able to take pain pills due to bowel problems. Takes Tylenol nightly and upon waking to help control the pain. Prior Treatments and Tests Dr. Bowen gave him a shot in the back and a week lateral to hip. Pain was a little better after the injections. Pain changed from 10 to 4. Future Testing and Treatments Planned Dr. Bowen follow up in July. Treatment Goals Patient/Caregiver Goals Pt goals: Walk dog with . Decrease pain to sleep 6-8 hrs peacefully without use of Tylenol. Decrease use of Tylenol for sleep. Prior Functional Status Baseline Function- ADL's Independent Baseline Function- Mobility Independent Baseline Function- Gait Pt able to walk without difficulty. Baseline Function- Other Not able to walk with to walk dog due to feeling of leg giving way. Able to sleep 6-8 hours per night. Current Functional Impairments (Reported) Functional Limitations- Mobility/Gait Pain with walking, not steady. Functional Limitations- Recreation/ Walked with to walk dog 1 Hobbies mile. 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 L knee has not been able to straighten for ~ 2 yrs. Current Dx (per history review ): Left herniated disc (L5-S1 ), Hip Osteoarthritis, Polymyalgia rheumatica, spondylosis of lumbar spine, and HTN. PT-OP-C Subjective Start: 06/02/20 18:24 Freq: Status: Active Protocol: Document 08/12/20 10:36 HH (Rec: 08/12/20 11:15 HH [id number]) OP-PT Subjective Patient Comments Patient Comments Sleep has been pretty good recently. I have been using the floor bike before and it helps me to go to sleep. PT-OP-D Balance Start: 06/02/20 18:24 Freq: Status: Active Protocol: Document 06/03/20 09:46 LRN (Rec: 06/03/20 16:33 LRN [id number]) OP-PT Balance Assessment Standing Balance Static Standing Balance Ability Poor Dynamic Standing Balance Ability Fair Standing Balance Comments Pt has loss of balance on initial standing, using plinth to stabilized at legs and snowden as standing time increases. Pt did not tolerate static standing for > 5' before pain in LLE caused him to request sitting. Alba Fall Scale Copyright Permission PT-OP-E Functional Tests Start: 06/02/20 18:24 Freq: Status: Active Protocol: Document 07/19/20 09:01 LRN (Rec: 07/19/20 09:53 LRN [id number]) Functional Tests Timed Up and Go (TUG) Score 20 Comments Used hands to transfer TUG Impairment Rating 100% Impaired (Score 20) PT-OP-G Mobility & Gait Start: 06/02/20 18:24 Freq: Status: Active Protocol: Document 06/03/20 09:46 LRN (Rec: 06/03/20 14:51 LRN [id number]) OP Gait Assessment Gait Gait Assistance Required: Standby Assistance Distance (Feet) 60 Able to Maintain Weight Bearing Status Yes During Gait Assistive Devices Assistive Device None Gait Deviations General Gait Pattern Decreased Stride Length, Decreased Feet Clearance, Flexed Trunk,Wide Based Gait Factors Limiting Gait Function Factors Limiting Gait Function Decreased Activity Tolerance, Decreased Strength,Pain,Poor Balance PT-OP-H Neuro Start: 06/02/20 18:24 Freq: Status: Active Protocol: Document 06/03/20 09:46 LRN (Rec: 06/03/20 14:51 LRN [id number]) Sensation Evaluation Gross Sensation Gross Sensation Left LE Impaired Sensation Description Numbness,Pain Dermatome Impairments L4,L5,S1 Deep Tendon Reflex & Clonus Assessment Deep Tendon Reflex Left Achilles Deep Tendon Reflex 0 Absent Bilateral Patellar Deep Tendon Reflex 1+ Diminished PT-OP-J Posture/Palpation/Skin Start: 06/02/20 18:24 Freq: Status: Active Protocol: Document 06/03/20 09:46 LRN (Rec: 06/03/20 14:51 LRN [id number]) Posture Evaluation Position Standing Head/C-Spine Posture Forward Head L-Spine Posture Flattened Pelvis Posture Posterior Tilted Hip Posture (L) Flexed,(R) Flexed Palpation Assessment Location L TFL Palpation Location TFL Muscle belly Palpation Findings Tenderness L lateral hip Palpation Location Greater trochanter Palpation Findings Tenderness PT-OP-K Range of Motion Start: 06/02/20 18:24 Freq: Status: Active Protocol: Document 06/08/20 14:27 LRN (Rec: 06/08/20 15:30 LRN [id number]) Lumbar Spine Range of Motion Lumbar Spine Active Degrees Testing Position Standing Flexion 7 Extension 5 Lateral Flexion Left 10 Lateral Flexion Right 15 Comments Trunk flex: 5 hip flex Trunk ext: 5 hip ext PT-OP-L Special Tests Start: 06/02/20 18:24 Freq: Status: Active Protocol: Document 06/03/20 09:46 LRN (Rec: 06/03/20 14:51 LRN [id number]) Special Tests Lumbar Spine Special Tests Straight Leg Raise Test Results Neg bilaterally Comments Hamstring tightness Hip Special Tests AILEEN Test Results + R for anterior groin pain Comments Indicates 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 Indicates possible SIJ dysfunction. PT-OP-M Strength Start: 06/02/20 18:24 Freq: Status: Active Protocol: Document 07/22/20 09:09 LRN (Rec: 07/22/20 09:54 LRN [id number]) Hip Strength Hip Manual Muscle Testing Right Abduction 2 Poor Adduction 1 Trace Left Abduction 2 Poor Adduction 2+ Poor+ PT-OP-Q Treatments Start: 06/02/20 18:24 Freq: Status: Active Protocol: Document 08/12/20 10:36 (Rec: 08/12/20 11:15 [id number]) Cardio Equipment Bicycle (Upright) Duration (Minutes) 8 Resistance 5 Seat Position 3 Gym Equipment Shuttle Recovery B squat Resistance 50 lbs, 75#, 87# Shuttle Recovery Platform Stable Reps/Time 1 set for 50 and 75, 87# for 2 sets Therapeutic Exercises Supine Exercises Bridge Side bilateral Reps/Minutes 8x2 Comments less discomfort noted, but still has pain at end range. Sidelying Exercises clamshell Sidelying Exercise Name Clamshell Side bilateral Reps/Minutes 10x 2 Comments no discomfort noted. Therapeutic Activity Therapeutic Activity Sit<->Stand Reps/Minutes 8 x 2 Comments pt education on using momentum , tucking feet closer to chair , and leaning forward. PT-OP-T Assessment and Plan Start: 06/02/20 18:24 Freq: Status: Active Protocol: Document 08/12/20 10:36 (Rec: 08/12/20 11:15 [id number]) Physical Therapy Assessment Goals Four Impairment Decreased L hip strength (AB 2 +/5, AD 1/5) Short Term Goal (STG) Pt will be able to move in bed with tolerable pain. (07/19/20: No change in L hip strength) STG Duration 07/16/20 (07/19/20: Moving in bed pain is 7/10) Senior Living Goal (LTG) Pt will be able to ambulate stairs and level ground with confidence to return to dog walking with his . LTG Duration 10/01/20 Three Impairment Decreased balance, loss of balance on initial standing and after 5'. Short Term Goal (STG) Pt will be able to transfer sit to stand without fear of losing his balance, and decreased TUG score to 19 sec' s. (07/19/20: TUG score 20, improved from 24 initially. Pt is very aware and concerned with sit to stand loss of balance). STG Duration 07/16/20 (07/19/20: Improved) Senior Living Goal (LTG) Decrease TUG time to 13-14 sec 's with pt able to stand > 5' without fear of loss of balance. LTG Duration 10/01/20 Two Impairment LLE pain from hip to foot rated 0-9/10, disturbing sleep . Short Term Goal (STG) Pt will reduce his need for Tylenol and will improve standing tolerance such that he will be able to exercise through an entire PT session. (07/19/20: Taking Tylenol in AM & PM and only 15% in afternoon, previously took AM & PM, and 2x at noon). STG Duration 07/16/20 (07/19/20: Progressing, pt rarely taking Tylenol at noon) Application Support Lead Goal (LTG) Pt will be able to improve sleep duration to 6-8 hrs for the majority of the time. (07/19/20: Sleeps ~6 hrs, except last night had discomfort in the L hip and down lateral upper thigh). LTG Duration 10/01/20 (07/19/20: Sleeping ~6hrs with Tylenol) Assessment Summary Assessment Pt continues to make improvement on pain, strength, and mobility. Pt reports he has been sleeping better recently. Pt was able to perform sit to stand without using hands after instructions were provided on forward trunk lean, closer feet placement towards the chair, and use of momentum. Physical Therapy Plan Frequency and Duration Frequency of Treatment 2x/Week Plan of Care Start Date 07/19/20 Plan of Care End Date 10/17/20 Next Visit Focus/Plan Next Note Type Treatment Note Next Visit Plan Add to HEP: hip ROM L hip AB stretch, check hip IR/ER strength. Stretch L hip ER's & strengthen R if symmetry needed. Monitor Sacral positioning & SIJ dysfunction of flare/rotation (see assessment), Start with upright ex bike if normal pelvic alignment to progress lumbar/pelvic stabilization. Mob to sacrum as needed. ( Tests: log roll - found negative, check: Stinchfield, Distraction & Lateral compression, Thigh Thrust, Gaenslen). Monitor SIJ for possible R downslip. Lumbar/ pelvic stabilization exercises .
--- NOTE | 2020-08-17 10:30 | PT.OTN ---
Current Diagnoses Osteoarthritis of hip, unspecified (08/17/20) Other intervertebral disc displacement, lumbosacral region (08/17/20) Muscle weakness (generalized) (08/17/20) Unsteadiness on feet (08/17/20) Physical Therapy Treatment Note PT-OP-A Visit Information Start: 06/02/20 18:24 Freq: Status: Active Protocol: Document 08/17/20 09:39 HH (Rec: 08/17/20 10:28 HH [id number]) Out-Patient Physical Therapy Visit Information Visit Information Visit Type Treatment Note Visit Start Time 09:40 Visit Stop Time 10:26 Total Visit Minutes 46 Visit Number 18 PT-OP-B Current Condition Start: 06/02/20 18:24 Freq: Status: Active Protocol: Document 06/03/20 09:46 LRN (Rec: 06/03/20 10:43 LRN [id number]) Current Condition History of Current Condition Onset Date 2.5 months Current Complaints L hip and leg pain, buttock to foot down lateral LE. History of Current Condition Pain onset insidious. States he has disc problems in the back and it was thought he had a pinched nerve. The injection provided relief for 1.5 days. Now he feels he is getting progressively worse. Getting up in the morning pain is 8-10/10 and lessens during the day to 3-4/10. After sitting for awhile (1 hr) after walking to the kitchen his pain increases. By bedtime pain is 6-10/10. Sleeps 4-5 hrs and then must get up due to the pain. Not able to take pain pills due to bowel problems. Takes Tylenol nightly and upon waking to help control the pain. Prior Treatments and Tests Dr. Bowen gave him a shot in the back and a week lateral to hip. Pain was a little better after the injections. Pain changed from 10 to 4. Future Testing and Treatments Planned Dr. Bowen follow up in July. Treatment Goals Patient/Caregiver Goals Pt goals: Walk dog with . Decrease pain to sleep 6-8 hrs peacefully without use of Tylenol. Decrease use of Tylenol for sleep. Prior Functional Status Baseline Function- ADL's Independent Baseline Function- Mobility Independent Baseline Function- Gait Pt able to walk without difficulty. Baseline Function- Other Not able to walk with to walk dog due to feeling of leg giving way. Able to sleep 6-8 hours per night. Current Functional Impairments (Reported) Functional Limitations- Mobility/Gait Pain with walking, not steady. Functional Limitations- Recreation/ Walked with to walk dog 1 Hobbies mile. 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 L knee has not been able to straighten for ~ 2 yrs. Current Dx (per history review ): Left herniated disc (L5-S1 ), Hip Osteoarthritis, Polymyalgia rheumatica, spondylosis of lumbar spine, and HTN. PT-OP-C Subjective Start: 06/02/20 18:24 Freq: Status: Active Protocol: Document 08/17/20 09:39 HH (Rec: 08/17/20 10:28 HH [id number]) OP-PT Subjective Patient Comments Patient Comments My hips are doing pretty good so far. Ludmila been trying to use my new techniques to get out from a chair. Patient Reported Progress Improving PT-OP-D Balance Start: 06/02/20 18:24 Freq: Status: Active Protocol: Document 06/03/20 09:46 LRN (Rec: 06/03/20 16:33 LRN [id number]) OP-PT Balance Assessment Standing Balance Static Standing Balance Ability Poor Dynamic Standing Balance Ability Fair Standing Balance Comments Pt has loss of balance on initial standing, using plinth to stabilized at legs and snowden as standing time increases. Pt did not tolerate static standing for > 5' before pain in LLE caused him to request sitting. Alba Fall Scale Copyright Permission PT-OP-E Functional Tests Start: 06/02/20 18:24 Freq: Status: Active Protocol: Document 07/19/20 09:01 LRN (Rec: 07/19/20 09:53 LRN [id number]) Functional Tests Timed Up and Go (TUG) Score 20 Comments Used hands to transfer TUG Impairment Rating 100% Impaired (Score 20) PT-OP-G Mobility & Gait Start: 06/02/20 18:24 Freq: Status: Active Protocol: Document 06/03/20 09:46 LRN (Rec: 06/03/20 14:51 LRN [id number]) OP Gait Assessment Gait Gait Assistance Required: Standby Assistance Distance (Feet) 60 Able to Maintain Weight Bearing Status Yes During Gait Assistive Devices Assistive Device None Gait Deviations General Gait Pattern Decreased Stride Length, Decreased Feet Clearance, Flexed Trunk,Wide Based Gait Factors Limiting Gait Function Factors Limiting Gait Function Decreased Activity Tolerance, Decreased Strength,Pain,Poor Balance PT-OP-H Neuro Start: 06/02/20 18:24 Freq: Status: Active Protocol: Document 06/03/20 09:46 LRN (Rec: 06/03/20 14:51 LRN [id number]) Sensation Evaluation Gross Sensation Gross Sensation Left LE Impaired Sensation Description Numbness,Pain Dermatome Impairments L4,L5,S1 Deep Tendon Reflex & Clonus Assessment Deep Tendon Reflex Left Achilles Deep Tendon Reflex 0 Absent Bilateral Patellar Deep Tendon Reflex 1+ Diminished PT-OP-J Posture/Palpation/Skin Start: 06/02/20 18:24 Freq: Status: Active Protocol: Document 06/03/20 09:46 LRN (Rec: 06/03/20 14:51 LRN [id number]) Posture Evaluation Position Standing Head/C-Spine Posture Forward Head L-Spine Posture Flattened Pelvis Posture Posterior Tilted Hip Posture (L) Flexed,(R) Flexed Palpation Assessment Location L TFL Palpation Location TFL Muscle belly Palpation Findings Tenderness L lateral hip Palpation Location Greater trochanter Palpation Findings Tenderness PT-OP-K Range of Motion Start: 06/02/20 18:24 Freq: Status: Active Protocol: Document 06/08/20 14:27 LRN (Rec: 06/08/20 15:30 LRN [id number]) Lumbar Spine Range of Motion Lumbar Spine Active Degrees Testing Position Standing Flexion 7 Extension 5 Lateral Flexion Left 10 Lateral Flexion Right 15 Comments Trunk flex: 5 hip flex Trunk ext: 5 hip ext PT-OP-L Special Tests Start: 06/02/20 18:24 Freq: Status: Active Protocol: Document 06/03/20 09:46 LRN (Rec: 06/03/20 14:51 LRN [id number]) Special Tests Lumbar Spine Special Tests Straight Leg Raise Test Results Neg bilaterally Comments Hamstring tightness Hip Special Tests AILEEN Test Results + R for anterior groin pain Comments Indicates 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 Indicates possible SIJ dysfunction. PT-OP-M Strength Start: 06/02/20 18:24 Freq: Status: Active Protocol: Document 07/22/20 09:09 LRN (Rec: 07/22/20 09:54 LRN [id number]) Hip Strength Hip Manual Muscle Testing Right Abduction 2 Poor Adduction 1 Trace Left Abduction 2 Poor Adduction 2+ Poor+ PT-OP-Q Treatments Start: 06/02/20 18:24 Freq: Status: Active Protocol: Document 08/17/20 09:39 HH (Rec: 08/17/20 10:28 [id number]) Cardio Equipment Bicycle (Upright) Duration (Minutes) 8 Resistance 5 Seat Position 3 Gym Equipment Shuttle Recovery uni squat Resistance #62 Shuttle Recovery Platform Stable Reps/Time 10 reps x2 B squat Resistance 50 lbs, 75#, 87# Shuttle Recovery Platform Stable Reps/Time 1 set for 50 and 75, 87# for 2 sets Therapeutic Exercises Supine Exercises ab curl Reps/Minutes 10 x2 Comments uses of low abs and hip flexion LTR Side bilateral Reps/Minutes 8x2 Comments cues on lumbar rotation only supine marches Side left Reps/Minutes 10 x2 Bridge Side bilateral Reps/Minutes 10 x2 Comments less discomfort noted, but still has pain at end range. Sidelying Exercises clamshell Sidelying Exercise Name Clamshell Side bilateral Reps/Minutes 10x 2 Comments no discomfort noted. Therapeutic Activity Therapeutic Activity Sit<->Stand Reps/Minutes 6 x2 Comments was able to complete without grab bar. But needed cues for full range of trunk lean. Manual Therapy Treatment Soft Tissue Mobilization glutes and piriformis Body Location L side Gluteal & Piriformis Mobilization Type Strumming Intensity/Depth Moderate Body Position Sidelying Comments minimal discomfort to pressure noted today PT-OP-T Assessment and Plan Start: 06/02/20 18:24 Freq: Status: Active Protocol: Document 08/17/20 09:39 (Rec: 08/17/20 10:28 [id number]) Physical Therapy Assessment Goals Four Impairment Decreased L hip strength (AB 2 +/5, AD 1/5) Short Term Goal (STG) Pt will be able to move in bed with tolerable pain. (07/19/20: No change in L hip strength) STG Duration 07/16/20 (07/19/20: Moving in bed pain is 7/10) Concrete Batcher Goal (LTG) Pt will be able to ambulate stairs and level ground with confidence to return to dog walking with his . LTG Duration 10/01/20 Three Impairment Decreased balance, loss of balance on initial standing and after 5'. Short Term Goal (STG) Pt will be able to transfer sit to stand without fear of losing his balance, and decreased TUG score to 19 sec' s. (07/19/20: TUG score 20, improved from 24 initially. Pt is very aware and concerned with sit to stand loss of balance). STG Duration 07/16/20 (07/19/20: Improved) Concrete Batcher Goal (LTG) Decrease TUG time to 13-14 sec 's with pt able to stand > 5' without fear of loss of balance. LTG Duration 10/01/20 Two Impairment LLE pain from hip to foot rated 0-9/10, disturbing sleep . Short Term Goal (STG) Pt will reduce his need for Tylenol and will improve standing tolerance such that he will be able to exercise through an entire PT session. (07/19/20: Taking Tylenol in AM & PM and only 15% in afternoon, previously took AM & PM, and 2x at noon). STG Duration 07/16/20 (07/19/20: Progressing, pt rarely taking Tylenol at noon) Concrete Batcher Goal (LTG) Pt will be able to improve sleep duration to 6-8 hrs for the majority of the time. (07/19/20: Sleeps ~6 hrs, except last night had discomfort in the L hip and down lateral upper thigh). LTG Duration 10/01/20 (07/19/20: Sleeping ~6hrs with Tylenol) One Impairment Lacks appropriate self care HEP. Senior Living Goal (LTG) Pt will be independent with a self care HEP. LTG Duration 10/01/20 (07/12/20: Progressing) Assessment Summary Assessment Pt monserrat session well and no discomfort noted except bridging. Added LTR and ab curl since pt tends to have hip dsicomfort during bed mobility Physical Therapy Plan Frequency and Duration Frequency of Treatment 2x/Week Plan of Care Start Date 07/19/20 Plan of Care End Date 10/17/20 Next Visit Focus/Plan Next Note Type Treatment Note Next Visit Plan Add to HEP: hip ROM L hip AB stretch, check hip IR/ER strength. Stretch L hip ER's & strengthen R if symmetry needed. Monitor Sacral positioning & SIJ dysfunction of flare/rotation (see assessment), Start with upright ex bike if normal pelvic alignment to progress lumbar/pelvic stabilization. Mob to sacrum as needed. ( Tests: log roll - found negative, check: Stinchfield, Distraction & Lateral compression, Thigh Thrust, Gaenslen). Monitor SIJ for possible R downslip. Lumbar/ pelvic stabilization exercises .
--- NOTE | 2020-08-19 10:31 | PT.OTN ---
Current Diagnoses Osteoarthritis of hip, unspecified (08/19/20) Other intervertebral disc displacement, lumbosacral region (08/19/20) Muscle weakness (generalized) (08/19/20) Unsteadiness on feet (08/19/20) Physical Therapy Treatment Note PT-OP-A Visit Information Start: 06/02/20 18:24 Freq: Status: Active Protocol: Document 08/19/20 09:49 HH (Rec: 08/19/20 10:31 HH [id number]) Out-Patient Physical Therapy Visit Information Visit Information Visit Type Treatment Note Visit Start Time 09:48 Visit Stop Time 10:30 Total Visit Minutes 42 Visit Number 19 PT-OP-B Current Condition Start: 06/02/20 18:24 Freq: Status: Active Protocol: Document 06/03/20 09:46 LRN (Rec: 06/03/20 10:43 LRN [id number]) Current Condition History of Current Condition Onset Date 2.5 months Current Complaints L hip and leg pain, buttock to foot down lateral LE. History of Current Condition Pain onset insidious. States he has disc problems in the back and it was thought he had a pinched nerve. The injection provided relief for 1.5 days. Now he feels he is getting progressively worse. Getting up in the morning pain is 8-10/10 and lessens during the day to 3-4/10. After sitting for awhile (1 hr) after walking to the kitchen his pain increases. By bedtime pain is 6-10/10. Sleeps 4-5 hrs and then must get up due to the pain. Not able to take pain pills due to bowel problems. Takes Tylenol nightly and upon waking to help control the pain. Prior Treatments and Tests Dr. Bowen gave him a shot in the back and a week lateral to hip. Pain was a little better after the injections. Pain changed from 10 to 4. Future Testing and Treatments Planned Dr. Bowen follow up in July. Treatment Goals Patient/Caregiver Goals Pt goals: Walk dog with . Decrease pain to sleep 6-8 hrs peacefully without use of Tylenol. Decrease use of Tylenol for sleep. Prior Functional Status Baseline Function- ADL's Independent Baseline Function- Mobility Independent Baseline Function- Gait Pt able to walk without difficulty. Baseline Function- Other Not able to walk with to walk dog due to feeling of leg giving way. Able to sleep 6-8 hours per night. Current Functional Impairments (Reported) Functional Limitations- Mobility/Gait Pain with walking, not steady. Functional Limitations- Recreation/ Walked with to walk dog 1 Hobbies mile. 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 L knee has not been able to straighten for ~ 2 yrs. Current Dx (per history review ): Left herniated disc (L5-S1 ), Hip Osteoarthritis, Polymyalgia rheumatica, spondylosis of lumbar spine, and HTN. PT-OP-C Subjective Start: 06/02/20 18:24 Freq: Status: Active Protocol: Document 08/19/20 09:49 HH (Rec: 08/19/20 10:31 HH [id number]) OP-PT Subjective Patient Comments Patient Comments I had a lousy night. I couldn 't sleep but its not because of my hip. My hips are doing fine with 2-3/10 only. Patient Reported Progress Improving PT-OP-D Balance Start: 06/02/20 18:24 Freq: Status: Active Protocol: Document 06/03/20 09:46 LRN (Rec: 06/03/20 16:33 LRN [id number]) OP-PT Balance Assessment Standing Balance Static Standing Balance Ability Poor Dynamic Standing Balance Ability Fair Standing Balance Comments Pt has loss of balance on initial standing, using plinth to stabilized at legs and snowden as standing time increases. Pt did not tolerate static standing for > 5' before pain in LLE caused him to request sitting. Alba Fall Scale Copyright Permission PT-OP-E Functional Tests Start: 06/02/20 18:24 Freq: Status: Active Protocol: Document 07/19/20 09:01 LRN (Rec: 07/19/20 09:53 LRN [id number]) Functional Tests Timed Up and Go (TUG) Score 20 Comments Used hands to transfer TUG Impairment Rating 100% Impaired (Score 20) PT-OP-G Mobility & Gait Start: 06/02/20 18:24 Freq: Status: Active Protocol: Document 06/03/20 09:46 LRN (Rec: 06/03/20 14:51 LRN [id number]) OP Gait Assessment Gait Gait Assistance Required: Standby Assistance Distance (Feet) 60 Able to Maintain Weight Bearing Status Yes During Gait Assistive Devices Assistive Device None Gait Deviations General Gait Pattern Decreased Stride Length, Decreased Feet Clearance, Flexed Trunk,Wide Based Gait Factors Limiting Gait Function Factors Limiting Gait Function Decreased Activity Tolerance, Decreased Strength,Pain,Poor Balance PT-OP-H Neuro Start: 06/02/20 18:24 Freq: Status: Active Protocol: Document 06/03/20 09:46 LRN (Rec: 06/03/20 14:51 LRN [id number]) Sensation Evaluation Gross Sensation Gross Sensation Left LE Impaired Sensation Description Numbness,Pain Dermatome Impairments L4,L5,S1 Deep Tendon Reflex & Clonus Assessment Deep Tendon Reflex Left Achilles Deep Tendon Reflex 0 Absent Bilateral Patellar Deep Tendon Reflex 1+ Diminished PT-OP-J Posture/Palpation/Skin Start: 06/02/20 18:24 Freq: Status: Active Protocol: Document 06/03/20 09:46 LRN (Rec: 06/03/20 14:51 LRN [id number]) Posture Evaluation Position Standing Head/C-Spine Posture Forward Head L-Spine Posture Flattened Pelvis Posture Posterior Tilted Hip Posture (L) Flexed,(R) Flexed Palpation Assessment Location L TFL Palpation Location TFL Muscle belly Palpation Findings Tenderness L lateral hip Palpation Location Greater trochanter Palpation Findings Tenderness PT-OP-K Range of Motion Start: 06/02/20 18:24 Freq: Status: Active Protocol: Document 06/08/20 14:27 LRN (Rec: 06/08/20 15:30 LRN [id number]) Lumbar Spine Range of Motion Lumbar Spine Active Degrees Testing Position Standing Flexion 7 Extension 5 Lateral Flexion Left 10 Lateral Flexion Right 15 Comments Trunk flex: 5 hip flex Trunk ext: 5 hip ext PT-OP-L Special Tests Start: 06/02/20 18:24 Freq: Status: Active Protocol: Document 06/03/20 09:46 LRN (Rec: 06/03/20 14:51 LRN [id number]) Special Tests Lumbar Spine Special Tests Straight Leg Raise Test Results Neg bilaterally Comments Hamstring tightness Hip Special Tests AILEEN Test Results + R for anterior groin pain Comments Indicates 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 Indicates possible SIJ dysfunction. PT-OP-M Strength Start: 08/12/20 18:24 Freq: Status: Active Protocol: Document 07/22/20 09:09 LRN (Rec: 07/22/20 09:54 LRN [id number]) Hip Strength Hip Manual Muscle Testing Right Abduction 2 Poor Adduction 1 Trace Left Abduction 2 Poor Adduction 2+ Poor+ PT-OP-Q Treatments Start: 06/02/20 18:24 Freq: Status: Active Protocol: Document 08/19/20 09:49 (Rec: 08/19/20 10:31 [id number]) Cardio Equipment Bicycle (Upright) Duration (Minutes) 8 Resistance 5 Seat Position 3 Gym Equipment Shuttle Recovery uni squat Resistance #62 Shuttle Recovery Platform Stable Reps/Time 10 reps x2 B squat Resistance 75#, 87# Shuttle Recovery Platform Stable Reps/Time 2 sets of 75#, 1 set for 87# Therapeutic Exercises Supine Exercises ab curl Reps/Minutes 10 x2 Comments uses of low abs and hip flexion LTR Side bilateral Reps/Minutes 8x2 Comments cues on lumbar rotation only Bridge Side bilateral Reps/Minutes 10 x2 Comments less discomfort noted, but still has pain at end range. Sidelying Exercises clamshell Sidelying Exercise Name Clamshell Side bilateral Reps/Minutes 10x 2 Comments no discomfort noted. Manual Therapy Treatment Soft Tissue Mobilization glutes and piriformis Body Location L side Gluteal & Piriformis Mobilization Type Strumming Intensity/Depth Moderate Body Position Sidelying Comments minimal discomfort to pressure noted today Nerve Glides SLR Nerve with knee extended at 60 degress then active DF/PF Body Position Supine Reps/Duration 2 mins each Comments neural tension is higher on LLE PT-OP-T Assessment and Plan Start: 06/02/20 18:24 Freq: Status: Active Protocol: Document 08/19/20 09:49 (Rec: 08/19/20 10:31 [id number]) Physical Therapy Assessment Goals Four Impairment Decreased L hip strength (AB 2 +/5, AD 1/5) Short Term Goal (STG) Pt will be able to move in bed with tolerable pain. (07/19/20: No change in L hip strength) STG Duration 07/16/20 (07/19/20: Moving in bed pain is 7/10) Detention Goal (LTG) Pt will be able to ambulate stairs and level ground with confidence to return to dog walking with his . LTG Duration 10/01/20 Three Impairment Decreased balance, loss of balance on initial standing and after 5'. Short Term Goal (STG) Pt will be able to transfer sit to stand without fear of losing his balance, and decreased TUG score to 19 sec' s. (07/19/20: TUG score 20, improved from 24 initially. Pt is very aware and concerned with sit to stand loss of balance). STG Duration 07/16/20 (07/19/20: Improved) Theater Usher Goal (LTG) Decrease TUG time to 13-14 sec 's with pt able to stand > 5' without fear of loss of balance. LTG Duration 10/01/20 Two Impairment LLE pain from hip to foot rated 0-9/10, disturbing sleep . Short Term Goal (STG) Pt will reduce his need for Tylenol and will improve standing tolerance such that he will be able to exercise through an entire PT session. (07/19/20: Taking Tylenol in AM & PM and only 15% in afternoon, previously took AM & PM, and 2x at noon). STG Duration 07/16/20 (07/19/20: Progressing, pt rarely taking Tylenol at noon) Theater Usher Goal (LTG) Pt will be able to improve sleep duration to 6-8 hrs for the majority of the time. (07/19/20: Sleeps ~6 hrs, except last night had discomfort in the L hip and down lateral upper thigh). LTG Duration 10/01/20 (07/19/20: Sleeping ~6hrs with Tylenol) One Impairment Lacks appropriate self care HEP. Theater Usher Goal (LTG) Pt will be independent with a self care HEP. LTG Duration 10/01/20 (07/12/20: Progressing) Assessment Summary Assessment Pt shows improved SL strength on leg press. He still has discomfort at L buttock during bridging. Noticed pt has increased neural tension for SLR on L>R. Pt did better with bridging after nerve glide. Physical Therapy Plan Frequency and Duration Frequency of Treatment 2x/Week Plan of Care Start Date 07/19/20 Plan of Care End Date 10/17/20 Next Visit Focus/Plan Next Note Type Treatment Note Next Visit Plan Add to HEP: hip ROM L hip AB stretch, check hip IR/ER strength. Stretch L hip ER's & strengthen R if symmetry needed. Monitor Sacral positioning & SIJ dysfunction of flare/rotation (see assessment), Start with upright ex bike if normal pelvic alignment to progress lumbar/pelvic stabilization. Mob to sacrum as needed. ( Tests: log roll - found negative, check: Stinchfield, Distraction & Lateral compression, Thigh Thrust, Gaenslen). Monitor SIJ for possible R downslip. Lumbar/ pelvic stabilization exercises .
--- NOTE | 2020-08-30 10:31 | PT.OTN ---
Current Diagnoses Osteoarthritis of hip, unspecified (08/30/20) Other intervertebral disc displacement, lumbosacral region (08/30/20) Muscle weakness (generalized) (08/30/20) Unsteadiness on feet (08/30/20) Physical Therapy Treatment Note PT-OP-A Visit Information Start: 06/02/20 18:24 Freq: Status: Active Protocol: Document 08/30/20 09:54 HH (Rec: 08/30/20 10:30 HH [id number]) Out-Patient Physical Therapy Visit Information Visit Information Visit Type Progress Note Visit Start Time 09:47 Visit Stop Time 10:30 Total Visit Minutes 43 Visit Number 20 Number of TAR MAN Visits 0 PT-OP-B Current Condition Start: 06/02/20 18:24 Freq: Status: Active Protocol: Document 06/03/20 09:46 LRN (Rec: 06/03/20 10:43 LRN [id number]) Current Condition History of Current Condition Onset Date 2.5 months Current Complaints L hip and leg pain, buttock to foot down lateral LE. History of Current Condition Pain onset insidious. States he has disc problems in the back and it was thought he had a pinched nerve. The injection provided relief for 1.5 days. Now he feels he is getting progressively worse. Getting up in the morning pain is 8-10/10 and lessens during the day to 3-4/10. After sitting for awhile (1 hr) after walking to the kitchen his pain increases. By bedtime pain is 6-10/10. Sleeps 4-5 hrs and then must get up due to the pain. Not able to take pain pills due to bowel problems. Takes Tylenol nightly and upon waking to help control the pain. Prior Treatments and Tests Dr. Bowen gave him a shot in the back and a week lateral to hip. Pain was a little better after the injections. Pain changed from 10 to 4. Future Testing and Treatments Planned Dr. Bowen follow up in July. Treatment Goals Patient/Caregiver Goals Pt goals: Walk dog with . Decrease pain to sleep 6-8 hrs peacefully without use of Tylenol. Decrease use of Tylenol for sleep. Prior Functional Status Baseline Function- ADL's Independent Baseline Function- Mobility Independent Baseline Function- Gait Pt able to walk without difficulty. Baseline Function- Other Not able to walk with to walk dog due to feeling of leg giving way. Able to sleep 6-8 hours per night. Current Functional Impairments (Reported) Functional Limitations- Mobility/Gait Pain with walking, not steady. Functional Limitations- Recreation/ Walked with to walk dog 1 Hobbies mile. 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 L knee has not been able to straighten for ~ 2 yrs. Current Dx (per history review ): Left herniated disc (L5-S1 ), Hip Osteoarthritis, Polymyalgia rheumatica, spondylosis of lumbar spine, and HTN. PT-OP-C Subjective Start: 06/02/20 18:24 Freq: Status: Active Protocol: Document 08/30/20 09:54 HH (Rec: 08/30/20 10:30 HH [id number]) OP-PT Subjective Patient Comments Patient Comments Ludmila been doing supine marches before bed and it helps. Ludmila been doing good most of the time Patient Reported Progress Improving PT-OP-D Balance Start: 06/02/20 18:24 Freq: Status: Active Protocol: Document 06/03/20 09:46 LRN (Rec: 06/03/20 16:33 LRN [id number]) OP-PT Balance Assessment Standing Balance Static Standing Balance Ability Poor Dynamic Standing Balance Ability Fair Standing Balance Comments Pt has loss of balance on initial standing, using plinth to stabilized at legs and snowden as standing time increases. Pt did not tolerate static standing for > 5' before pain in LLE caused him to request sitting. Alba Fall Scale Copyright Permission PT-OP-E Functional Tests Start: 06/02/20 18:24 Freq: Status: Active Protocol: Document 08/30/20 09:54 HH (Rec: 08/30/20 10:30 HH [id number]) Functional Tests 30 Second Sit to Stand Test Score 7 Comments completed 7 times, 4 of them without pushed off from armrests Timed Up and Go (TUG) Score 10.6 TUG Impairment Rating 0% Impaired (Score 10) PT-OP-G Mobility & Gait Start: 06/02/20 18:24 Freq: Status: Active Protocol: Document 06/03/20 09:46 LRN (Rec: 06/03/20 14:51 LRN [id number]) OP Gait Assessment Gait Gait Assistance Required: Standby Assistance Distance (Feet) 60 Able to Maintain Weight Bearing Status Yes During Gait Assistive Devices Assistive Device None Gait Deviations General Gait Pattern Decreased Stride Length, Decreased Feet Clearance, Flexed Trunk,Wide Based Gait Factors Limiting Gait Function Factors Limiting Gait Function Decreased Activity Tolerance, Decreased Strength,Pain,Poor Balance PT-OP-H Neuro Start: 06/02/20 18:24 Freq: Status: Active Protocol: Document 06/03/20 09:46 LRN (Rec: 06/03/20 14:51 LRN [id number]) Sensation Evaluation Gross Sensation Gross Sensation Left LE Impaired Sensation Description Numbness,Pain Dermatome Impairments L4,L5,S1 Deep Tendon Reflex & Clonus Assessment Deep Tendon Reflex Left Achilles Deep Tendon Reflex 0 Absent Bilateral Patellar Deep Tendon Reflex 1+ Diminished PT-OP-J Posture/Palpation/Skin Start: 06/02/20 18:24 Freq: Status: Active Protocol: Document 06/03/20 09:46 LRN (Rec: 06/03/20 14:51 LRN [id number]) Posture Evaluation Position Standing Head/C-Spine Posture Forward Head L-Spine Posture Flattened Pelvis Posture Posterior Tilted Hip Posture (L) Flexed,(R) Flexed Palpation Assessment Location L TFL Palpation Location TFL Muscle belly Palpation Findings Tenderness L lateral hip Palpation Location Greater trochanter Palpation Findings Tenderness PT-OP-K Range of Motion Start: 06/02/20 18:24 Freq: Status: Active Protocol: Document 06/08/20 14:27 LRN (Rec: 06/08/20 15:30 LRN [id number]) Lumbar Spine Range of Motion Lumbar Spine Active Degrees Testing Position Standing Flexion 7 Extension 5 Lateral Flexion Left 10 Lateral Flexion Right 15 Comments Trunk flex: 5 hip flex Trunk ext: 5 hip ext PT-OP-L Special Tests Start: 06/02/20 18:24 Freq: Status: Active Protocol: Document 06/03/20 09:46 LRN (Rec: 06/03/20 14:51 LRN [id number]) Special Tests Lumbar Spine Special Tests Straight Leg Raise Test Results Neg bilaterally Comments Hamstring tightness Hip Special Tests AILEEN Test Results + R for anterior groin pain Comments Indicates 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 Indicates possible SIJ dysfunction. PT-OP-M Strength Start: 06/02/20 18:24 Freq: Status: Active Protocol: Document 08/30/20 09:54 (Rec: 08/30/20 10:30 [id number]) Hip Strength Hip Manual Muscle Testing Right Abduction 4- Good- PT-OP-Q Treatments Start: 06/02/20 18:24 Freq: Status: Active Protocol: Document 08/30/20 09:54 (Rec: 08/30/20 10:30 [id number]) Therapeutic Exercises Supine Exercises ab curl Reps/Minutes 10 x2 Comments uses of low abs and hip flexion LTR Side bilateral Reps/Minutes 8x2 Comments cues on lumbar rotation only Bridge Side bilateral Reps/Minutes 10 x2 Comments min discomfort today. Manual Therapy Treatment Soft Tissue Mobilization glutes and piriformis Body Location L side Gluteal & Piriformis Mobilization Type Strumming Intensity/Depth Moderate Body Position Sidelying Comments minimal discomfort to pressure noted today PT-OP-T Assessment and Plan Start: 06/02/20 18:24 Freq: Status: Active Protocol: Document 08/30/20 09:54 (Rec: 08/30/20 10:30 [id number]) Physical Therapy Assessment Goals 30 STS Impairment pt completed 7 times, 4 of them without armrest push offs . Short Term Goal (STG) Pt will be able to complete 7 times STS in 30 secs without using arms to push off. STG Duration 4 weeks [facility] Goal (LTG) pt will be able to complete 10 times STS in 30 secs with arm push offs. LTG Duration 8 weeks Four Impairment Decreased L hip strength (AB 2 +/5, AD 1/5) Short Term Goal (STG) Pt will be able to move in bed with tolerable pain. (07/19/20: No change in L hip strength) 08/30 L hip abd strength 4-/5 STG Duration 07/16/20 (07/19/20: Moving in bed pain is 7/10) [facility] Goal (LTG) 08/30 Pt is able to ambulate stairs (step over 1 handrail) and level ground with confidence to return to dog walking with his . LTG Duration 10/01/20 Three Impairment Decreased balance, loss of balance on initial standing and after 5'. Short Term Goal (STG) Pt will be able to transfer sit to stand without fear of losing his balance, and decreased TUG score to 19 sec' s. (07/19/20: TUG score 20, improved from 24 initially. Pt is very aware and concerned with sit to stand loss of balance). STG Duration 07/16/20 (07/19/20: Improved) [facility] Goal (LTG) 08/30 goal met Pt is able to complete TUG in avg. 10.6 s in 3 trials. Decrease TUG time to 13-14 sec 's with pt able to stand > 5' without fear of loss of balance. LTG Duration 10/01/20 Two Impairment LLE pain from hip to foot rated 0-9/10, disturbing sleep . Short Term Goal (STG) Pt will reduce his need for Tylenol and will improve standing tolerance such that he will be able to exercise through an entire PT session. (07/19/20: Taking Tylenol in AM & PM and only 15% in afternoon, previously took AM & PM, and 2x at noon). STG Duration 07/16/20 (07/19/20: Progressing, pt rarely taking Tylenol at noon) [facility] Goal (LTG) 08/30 Pt tool 2 tylenol for the entire week last week 08/30 goal met pt is able to sleep 6-8 hours in a daily basiss (07/19/20: Sleeps ~6 hrs, except last night had discomfort in the L hip and down lateral upper thigh). LTG Duration 10/01/20 (07/19/20: Sleeping ~6hrs with Tylenol) One Impairment Lacks appropriate self care HEP. Trailer Truck Driver Goal (LTG) Pt will be independent with a self care HEP. LTG Duration 10/01/20 (07/12/20: Progressing) Progress Towards Goals Progress Towards Goals Progressing Toward Goals Assessment Summary Assessment Pt overall progressed well for the past 10 visits. His sleep quaility has improved, less pain med needed and overall more mobile. His hip strength and tug also significantly improved. His 30 STS today is 7 times with 4 out of them without using UE. Pt will cont benefit from skilled therapy to improve his hip strength, stability and overall functional mobility without discomfort. Physical Therapy Plan Frequency and Duration Frequency of Treatment 2x/Week Plan of Care Start Date 07/19/20 Plan of Care End Date 10/17/20 Next Visit Focus/Plan Next Note Type Treatment Note Next Visit Plan Add to HEP: hip ROM L hip AB stretch, check hip IR/ER strength. Stretch L hip ER's & strengthen R if symmetry needed. Monitor Sacral positioning & SIJ dysfunction of flare/rotation (see assessment), Start with upright ex bike if normal pelvic alignment to progress lumbar/pelvic stabilization. Mob to sacrum as needed. ( Tests: log roll - found negative, check: Stinchfield, Distraction & Lateral compression, Thigh Thrust, Gaenslen). Monitor SIJ for possible R downslip. Lumbar/ pelvic stabilization exercises .
--- NOTE | 2020-09-03 14:10 | PT-IP ANOTE ---
Called pt via phone. Pt cancelled appt yesterday d/t a GLF resulting L triquetrum fx and soreness at L side of the body. Pt was walking his trash can which rolls down his driveway which is on incline. He states the trash can started to get away from him he continued to hang onto it and when it reached the street it fell over taking him with it. Rec pt to cont mobility and cont PT as tolerated since there's no apparent injury to LEs.
--- NOTE | 2020-09-06 12:03 | PT-IP ANOTE ---
pt came in and cancelled his appointment today who stated cont to have soreness on his L side of the body. He currently wants to cont his therapy appointment after his soreness go away. Will cont check in with pt.
--- NOTE | 2020-09-13 09:18 | PT-IP ANOTE ---
Called pt via phone today. He reports he is feeling better overall and will plan to cont therapy starting from next week. Next appt = 09/20 9:00 am.
--- NOTE | 2020-09-20 09:45 | PT.OTN ---
Current Diagnoses Osteoarthritis of hip, unspecified (09/20/20) Other intervertebral disc displacement, lumbosacral region (09/20/20) Muscle weakness (generalized) (09/20/20) Unsteadiness on feet (09/20/20) Physical Therapy Treatment Note PT-OP-A Visit Information Start: 06/02/20 18:24 Freq: Status: Active Protocol: Document 09/20/20 09:02 HH (Rec: 09/20/20 09:45 HH [id number]) Out-Patient Physical Therapy Visit Information Visit Information Visit Type Treatment Note Visit Start Time 09:03 Visit Stop Time 09:45 Total Visit Minutes 42 Visit Number 21 Number of BAR HOST/HOSTESS Visits 0 PT-OP-B Current Condition Start: 06/02/20 18:24 Freq: Status: Active Protocol: Document 06/03/20 09:46 LRN (Rec: 06/03/20 10:43 LRN [id number]) Current Condition History of Current Condition Onset Date 2.5 months Current Complaints L hip and leg pain, buttock to foot down lateral LE. History of Current Condition Pain onset insidious. States he has disc problems in the back and it was thought he had a pinched nerve. The injection provided relief for 1.5 days. Now he feels he is getting progressively worse. Getting up in the morning pain is 8-10/10 and lessens during the day to 3-4/10. After sitting for awhile (1 hr) after walking to the kitchen his pain increases. By bedtime pain is 6-10/10. Sleeps 4-5 hrs and then must get up due to the pain. Not able to take pain pills due to bowel problems. Takes Tylenol nightly and upon waking to help control the pain. Prior Treatments and Tests Dr. Bowen gave him a shot in the back and a week lateral to hip. Pain was a little better after the injections. Pain changed from 10 to 4. Future Testing and Treatments Planned Dr. Bowen follow up in July. Treatment Goals Patient/Caregiver Goals Pt goals: Walk dog with . Decrease pain to sleep 6-8 hrs peacefully without use of Tylenol. Decrease use of Tylenol for sleep. Prior Functional Status Baseline Function- ADL's Independent Baseline Function- Mobility Independent Baseline Function- Gait Pt able to walk without difficulty. Baseline Function- Other Not able to walk with to walk dog due to feeling of leg giving way. Able to sleep 6-8 hours per night. Current Functional Impairments (Reported) Functional Limitations- Mobility/Gait Pain with walking, not steady. Functional Limitations- Recreation/ Walked with to walk dog 1 Hobbies mile. 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 L knee has not been able to straighten for ~ 2 yrs. Current Dx (per history review ): Left herniated disc (L5-S1 ), Hip Osteoarthritis, Polymyalgia rheumatica, spondylosis of lumbar spine, and HTN. PT-OP-C Subjective Start: 06/02/20 18:24 Freq: Status: Active Protocol: Document 09/20/20 09:02 HH (Rec: 09/20/20 09:45 HH [id number]) OP-PT Subjective Patient Comments Patient Comments I took a fall in early Nov and broke my wirst and hurt my L side of the body including my face elbows, and knees. However, my L hip is still doing very good so far. I had trouble sleeping but not because of my hip but my knee. PT-OP-D Balance Start: 06/02/20 18:24 Freq: Status: Active Protocol: Document 06/03/20 09:46 LRN (Rec: 06/03/20 16:33 LRN [id number]) OP-PT Balance Assessment Standing Balance Static Standing Balance Ability Poor Dynamic Standing Balance Ability Fair Standing Balance Comments Pt has loss of balance on initial standing, using plinth to stabilized at legs and snowden as standing time increases. Pt did not tolerate static standing for > 5' before pain in LLE caused him to request sitting. Alba Fall Scale Copyright Permission PT-OP-E Functional Tests Start: 06/02/20 18:24 Freq: Status: Active Protocol: Document 08/30/20 09:54 HH (Rec: 08/30/20 10:30 HH [id number]) Functional Tests 30 Second Sit to Stand Test Score 7 Comments completed 7 times, 4 of them without pushed off from armrests Timed Up and Go (TUG) Score 10.6 TUG Impairment Rating 0% Impaired (Score 10) PT-OP-G Mobility & Gait Start: 06/02/20 18:24 Freq: Status: Active Protocol: Document 06/03/20 09:46 LRN (Rec: 06/03/20 14:51 LRN [id number]) OP Gait Assessment Gait Gait Assistance Required: Standby Assistance Distance (Feet) 60 Able to Maintain Weight Bearing Status Yes During Gait Assistive Devices Assistive Device None Gait Deviations General Gait Pattern Decreased Stride Length, Decreased Feet Clearance, Flexed Trunk,Wide Based Gait Factors Limiting Gait Function Factors Limiting Gait Function Decreased Activity Tolerance, Decreased Strength,Pain,Poor Balance PT-OP-H Neuro Start: 06/02/20 18:24 Freq: Status: Active Protocol: Document 06/03/20 09:46 LRN (Rec: 06/03/20 14:51 LRN [id number]) Sensation Evaluation Gross Sensation Gross Sensation Left LE Impaired Sensation Description Numbness,Pain Dermatome Impairments L4,L5,S1 Deep Tendon Reflex & Clonus Assessment Deep Tendon Reflex Left Achilles Deep Tendon Reflex 0 Absent Bilateral Patellar Deep Tendon Reflex 1+ Diminished PT-OP-J Posture/Palpation/Skin Start: 06/02/20 18:24 Freq: Status: Active Protocol: Document 06/03/20 09:46 LRN (Rec: 06/03/20 14:51 LRN [id number]) Posture Evaluation Position Standing Head/C-Spine Posture Forward Head L-Spine Posture Flattened Pelvis Posture Posterior Tilted Hip Posture (L) Flexed,(R) Flexed Palpation Assessment Location L TFL Palpation Location TFL Muscle belly Palpation Findings Tenderness L lateral hip Palpation Location Greater trochanter Palpation Findings Tenderness PT-OP-K Range of Motion Start: 06/02/20 18:24 Freq: Status: Active Protocol: Document 06/08/20 14:27 LRN (Rec: 06/08/20 15:30 LRN [id number]) Lumbar Spine Range of Motion Lumbar Spine Active Degrees Testing Position Standing Flexion 7 Extension 5 Lateral Flexion Left 10 Lateral Flexion Right 15 Comments Trunk flex: 5 hip flex Trunk ext: 5 hip ext PT-OP-L Special Tests Start: 06/02/20 18:24 Freq: Status: Active Protocol: Document 06/03/20 09:46 LRN (Rec: 06/03/20 14:51 LRN [id number]) Special Tests Lumbar Spine Special Tests Straight Leg Raise Test Results Neg bilaterally Comments Hamstring tightness Hip Special Tests AILEEN Test Results + R for anterior groin pain Comments Indicates 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 Indicates possible SIJ dysfunction. PT-OP-M Strength Start: 06/02/20 18:24 Freq: Status: Active Protocol: Document 08/30/20 09:54 HH (Rec: 08/30/20 10:30 HH [id number]) Hip Strength Hip Manual Muscle Testing Right Abduction 4- Good- PT-OP-Q Treatments Start: 06/02/20 18:24 Freq: Status: Active Protocol: Document 09/20/20 09:02 HH (Rec: 09/20/20 09:45 HH [id number]) Cardio Equipment Recumbent Stepper (Sci-Fit) Duration (Minutes) 6 Resistance 2 Seat Position 6 Bicycle (Upright) Duration (Minutes) 8 Resistance 5 Seat Position 3 Gym Equipment Shuttle Recovery uni squat Resistance #50 Shuttle Recovery Platform Stable Reps/Time 10 reps x2 B squat Resistance #50 Shuttle Recovery Platform Stable Reps/Time 2 sets of #50 for warm up. Therapeutic Exercises Supine Exercises Bridge Side bilateral Reps/Minutes 10 x2 Comments decreased L hip discomfort today. Gait Training Gait Activity ground level Level of Assistance SBA Surface ground level Distance/Duration 200 ft x 3 Comments pt has lack of L knee extension during stance phase. Manual Therapy Treatment Soft Tissue Mobilization Quad Mobilization Type Rolling,Sustained Pressure, Trigger Point Release Intensity/Depth Moderate Body Position Supine Comments increased tenderness noted at R quad PT-OP-T Assessment and Plan Start: 06/02/20 18:24 Freq: Status: Active Protocol: Document 09/20/20 09:02 HH (Rec: 09/20/20 09:45 [id number]) Physical Therapy Assessment Goals 30 STS Impairment pt completed 7 times, 4 of them without armrest push offs . Short Term Goal (STG) Pt will be able to complete 7 times STS in 30 secs without using arms to push off. STG Duration 4 weeks Penitentiary Goal (LTG) pt will be able to complete 10 times STS in 30 secs with arm push offs. LTG Duration 8 weeks Four Impairment Decreased L hip strength (AB 2 +/5, AD 1/5) Short Term Goal (STG) Pt will be able to move in bed with tolerable pain. (07/19/20: No change in L hip strength) 11/9 L hip abd strength 4-/5 STG Duration 07/16/20 (07/19/20: Moving in bed pain is 7/10) Penitentiary Goal (LTG) 08/30 Pt is able to ambulate stairs (step over 1 handrail) and level ground with confidence to return to dog walking with his . LTG Duration 10/01/20 Three Impairment Decreased balance, loss of balance on initial standing and after 5'. Short Term Goal (STG) Pt will be able to transfer sit to stand without fear of losing his balance, and decreased TUG score to 19 sec' s. (07/19/20: TUG score 20, improved from 24 initially. Pt is very aware and concerned with sit to stand loss of balance). STG Duration 07/16/20 (07/19/20: Improved) Penitentiary Goal (LTG) 08/30 goal met Pt is able to complete TUG in avg. 10.6 s in 3 trials. Decrease TUG time to 13-14 sec 's with pt able to stand > 5' without fear of loss of balance. LTG Duration 10/01/20 Two Impairment LLE pain from hip to foot rated 0-9/10, disturbing sleep . Short Term Goal (STG) Pt will reduce his need for Tylenol and will improve standing tolerance such that he will be able to exercise through an entire PT session. (07/19/20: Taking Tylenol in AM & PM and only 15% in afternoon, previously took AM & PM, and 2x at noon). STG Duration 07/16/20 (07/19/20: Progressing, pt rarely taking Tylenol at noon) Pellet Preparation Operator Goal (LTG) 08/30 Pt tool 2 tylenol for the entire week last week 08/30 goal met pt is able to sleep 6-8 hours in a daily basiss (07/19/20: Sleeps ~6 hrs, except last night had discomfort in the L hip and down lateral upper thigh). LTG Duration 10/01/20 (07/19/20: Sleeping ~6hrs with Tylenol) One Impairment Lacks appropriate self care HEP. Penitentiary Goal (LTG) Pt will be independent with a self care HEP. LTG Duration 10/01/20 (07/12/20: Progressing) Assessment Summary Assessment Pt took a fall 3 weeks ago and slowly recovering. However, his L hip has been doing well without aggravation. Today' session focused reestablishing his pre fall activity level. Physical Therapy Plan Frequency and Duration Frequency of Treatment 2x/Week Plan of Care Start Date 07/19/20 Plan of Care End Date 10/17/20 Next Visit Focus/Plan Next Note Type Treatment Note Next Visit Plan Add to HEP: hip ROM L hip AB stretch, check hip IR/ER strength. Stretch L hip ER's & strengthen R if symmetry needed. Monitor Sacral positioning & SIJ dysfunction of flare/rotation (see assessment), Start with upright ex bike if normal pelvic alignment to progress lumbar/pelvic stabilization. Mob to sacrum as needed. ( Tests: log roll - found negative, check: Stinchfield, Distraction & Lateral compression, Thigh Thrust, Gaenslen). Monitor SIJ for possible R downslip. Lumbar/ pelvic stabilization exercises .
--- NOTE | 2020-09-23 09:47 | PT.OTN ---
Current Diagnoses Osteoarthritis of hip, unspecified (09/23/20) Other intervertebral disc displacement, lumbosacral region (09/23/20) Muscle weakness (generalized) (09/23/20) Unsteadiness on feet (09/23/20) Physical Therapy Treatment Note PT-OP-A Visit Information Start: 06/02/20 18:24 Freq: Status: Active Protocol: Document 09/23/20 08:54 HH (Rec: 09/23/20 09:47 HH [id number]) Out-Patient Physical Therapy Visit Information Visit Information Visit Type Treatment Note Visit Start Time 09:00 Visit Stop Time 09:43 Total Visit Minutes 43 Visit Number 22 Number of RELEASE ENGINEER Visits 0 PT-OP-B Current Condition Start: 06/02/20 18:24 Freq: Status: Active Protocol: Document 06/03/20 09:46 LRN (Rec: 06/03/20 10:43 LRN [id number]) Current Condition History of Current Condition Onset Date 2.5 months Current Complaints L hip and leg pain, buttock to foot down lateral LE. History of Current Condition Pain onset insidious. States he has disc problems in the back and it was thought he had a pinched nerve. The injection provided relief for 1.5 days. Now he feels he is getting progressively worse. Getting up in the morning pain is 8-10/10 and lessens during the day to 3-4/10. After sitting for awhile (1 hr) after walking to the kitchen his pain increases. By bedtime pain is 6-10/10. Sleeps 4-5 hrs and then must get up due to the pain. Not able to take pain pills due to bowel problems. Takes Tylenol nightly and upon waking to help control the pain. Prior Treatments and Tests Dr. Bowen gave him a shot in the back and a week lateral to hip. Pain was a little better after the injections. Pain changed from 10 to 4. Future Testing and Treatments Planned Dr. Bowen follow up in July. Treatment Goals Patient/Caregiver Goals Pt goals: Walk dog with . Decrease pain to sleep 6-8 hrs peacefully without use of Tylenol. Decrease use of Tylenol for sleep. Prior Functional Status Baseline Function- ADL's Independent Baseline Function- Mobility Independent Baseline Function- Gait Pt able to walk without difficulty. Baseline Function- Other Not able to walk with to walk dog due to feeling of leg giving way. Able to sleep 6-8 hours per night. Current Functional Impairments (Reported) Functional Limitations- Mobility/Gait Pain with walking, not steady. Functional Limitations- Recreation/ Walked with to walk dog 1 Hobbies mile. 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 L knee has not been able to straighten for ~ 2 yrs. Current Dx (per history review ): Left herniated disc (L5-S1 ), Hip Osteoarthritis, Polymyalgia rheumatica, spondylosis of lumbar spine, and HTN. PT-OP-C Subjective Start: 06/02/20 18:24 Freq: Status: Active Protocol: Document 09/23/20 08:54 HH (Rec: 09/23/20 09:47 HH [id number]) OP-PT Subjective Patient Comments Patient Comments i felt pretty good last time and i didnt get too tired. Patient Reported Progress Same PT-OP-D Balance Start: 06/02/20 18:24 Freq: Status: Active Protocol: Document 06/03/20 09:46 LRN (Rec: 06/03/20 16:33 LRN [id number]) OP-PT Balance Assessment Standing Balance Static Standing Balance Ability Poor Dynamic Standing Balance Ability Fair Standing Balance Comments Pt has loss of balance on initial standing, using plinth to stabilized at legs and snowden as standing time increases. Pt did not tolerate static standing for > 5' before pain in LLE caused him to request sitting. Alba Fall Scale Copyright Permission PT-OP-E Functional Tests Start: 06/02/20 18:24 Freq: Status: Active Protocol: Document 08/30/20 09:54 HH (Rec: 08/30/20 10:30 HH [id number]) Functional Tests 30 Second Sit to Stand Test Score 7 Comments completed 7 times, 4 of them without pushed off from armrests Timed Up and Go (TUG) Score 10.6 TUG Impairment Rating 0% Impaired (Score 10) PT-OP-G Mobility & Gait Start: 06/02/20 18:24 Freq: Status: Active Protocol: Document 06/03/20 09:46 LRN (Rec: 06/03/20 14:51 LRN [id number]) OP Gait Assessment Gait Gait Assistance Required: Standby Assistance Distance (Feet) 60 Able to Maintain Weight Bearing Status Yes During Gait Assistive Devices Assistive Device None Gait Deviations General Gait Pattern Decreased Stride Length, Decreased Feet Clearance, Flexed Trunk,Wide Based Gait Factors Limiting Gait Function Factors Limiting Gait Function Decreased Activity Tolerance, Decreased Strength,Pain,Poor Balance PT-OP-H Neuro Start: 06/02/20 18:24 Freq: Status: Active Protocol: Document 06/03/20 09:46 LRN (Rec: 06/03/20 14:51 LRN [id number]) Sensation Evaluation Gross Sensation Gross Sensation Left LE Impaired Sensation Description Numbness,Pain Dermatome Impairments L4,L5,S1 Deep Tendon Reflex & Clonus Assessment Deep Tendon Reflex Left Achilles Deep Tendon Reflex 0 Absent Bilateral Patellar Deep Tendon Reflex 1+ Diminished PT-OP-J Posture/Palpation/Skin Start: 06/02/20 18:24 Freq: Status: Active Protocol: Document 06/03/20 09:46 LRN (Rec: 06/03/20 14:51 LRN [id number]) Posture Evaluation Position Standing Head/C-Spine Posture Forward Head L-Spine Posture Flattened Pelvis Posture Posterior Tilted Hip Posture (L) Flexed,(R) Flexed Palpation Assessment Location L TFL Palpation Location TFL Muscle belly Palpation Findings Tenderness L lateral hip Palpation Location Greater trochanter Palpation Findings Tenderness PT-OP-K Range of Motion Start: 06/02/20 18:24 Freq: Status: Active Protocol: Document 06/08/20 14:27 LRN (Rec: 06/08/20 15:30 LRN [id number]) Lumbar Spine Range of Motion Lumbar Spine Active Degrees Testing Position Standing Flexion 7 Extension 5 Lateral Flexion Left 10 Lateral Flexion Right 15 Comments Trunk flex: 5 hip flex Trunk ext: 5 hip ext PT-OP-L Special Tests Start: 06/02/20 18:24 Freq: Status: Active Protocol: Document 06/03/20 09:46 LRN (Rec: 06/03/20 14:51 LRN [id number]) Special Tests Lumbar Spine Special Tests Straight Leg Raise Test Results Neg bilaterally Comments Hamstring tightness Hip Special Tests AILEEN Test Results + R for anterior groin pain Comments Indicates 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 Indicates possible SIJ dysfunction. PT-OP-M Strength Start: 06/02/20 18:24 Freq: Status: Active Protocol: Document 08/30/20 09:54 (Rec: 08/30/20 10:30 [id number]) Hip Strength Hip Manual Muscle Testing Right Abduction 4- Good- PT-OP-Q Treatments Start: 06/02/20 18:24 Freq: Status: Active Protocol: Document 09/23/20 08:54 HH (Rec: 09/23/20 09:47 HH [id number]) Cardio Equipment Bicycle (Upright) Duration (Minutes) 8 Resistance 7 Seat Position 3 Gym Equipment Shuttle Recovery uni squat Resistance #62 Shuttle Recovery Platform Stable Reps/Time 8reps x2 B squat Resistance #75 Shuttle Recovery Platform Stable Reps/Time 2 sets 75 for warm up. Therapeutic Exercises Supine Exercises ab curl Reps/Minutes 10 x2 Comments uses of low abs and hip flexion LTR Side bilateral Reps/Minutes 8x2 Comments cues on lumbar rotation only supine marches Side bilateral Fig 4 stretch Side bilateral Reps/Minutes 10 sec x 4 Piriformis stretch Supine Exercise Name knee to opp chest Reps/Minutes 10 sec x 4 Standing Exercises step up Side bilateral Equipment Used 6 step Reps/Minutes 10 x2 Therapeutic Activity Therapeutic Activity stair Reps/Minutes 5 rounds x 4 steps Comments ascend with step to pattern leading with L LE without rails. B rails support for descend PT-OP-T Assessment and Plan Start: 06/02/20 18:24 Freq: Status: Active Protocol: Document 09/23/20 08:54 (Rec: 09/23/20 09:47 [id number]) Physical Therapy Assessment Goals 30 STS Impairment pt completed 7 times, 4 of them without armrest push offs . Short Term Goal (STG) Pt will be able to complete 7 times STS in 30 secs without using arms to push off. STG Duration 4 weeks Senior Living Goal (LTG) pt will be able to complete 10 times STS in 30 secs with arm push offs. LTG Duration 8 weeks Four Impairment Decreased L hip strength (AB 2 +/5, AD 1/5) Short Term Goal (STG) Pt will be able to move in bed with tolerable pain. (07/19/20: No change in L hip strength) 11/9 L hip abd strength 4-/5 STG Duration 07/16/20 (9/28/20: Moving in bed pain is 7/10) Senior Living Goal (LTG) 08/30 Pt is able to ambulate stairs (step over 1 handrail) and level ground with confidence to return to dog walking with his . LTG Duration 10/01/20 Three Impairment Decreased balance, loss of balance on initial standing and after 5'. Short Term Goal (STG) Pt will be able to transfer sit to stand without fear of losing his balance, and decreased TUG score to 19 sec' s. (07/19/20: TUG score 20, improved from 24 initially. Pt is very aware and concerned with sit to stand loss of balance). STG Duration 07/16/20 (07/19/20: Improved) Senior Living Goal (LTG) 08/30 goal met Pt is able to complete TUG in avg. 10.6 s in 3 trials. Decrease TUG time to 13-14 sec 's with pt able to stand > 5' without fear of loss of balance. LTG Duration 10/01/20 Two Impairment LLE pain from hip to foot rated 0-9/10, disturbing sleep . Short Term Goal (STG) Pt will reduce his need for Tylenol and will improve standing tolerance such that he will be able to exercise through an entire PT session. (07/19/20: Taking Tylenol in AM & PM and only 15% in afternoon, previously took AM & PM, and 2x at noon). STG Duration 07/16/20 (07/19/20: Progressing, pt rarely taking Tylenol at noon) Manager Collection Goal (LTG) 08/30 Pt tool 2 tylenol for the entire week last week 08/30 goal met pt is able to sleep 6-8 hours in a daily basiss (07/19/20: Sleeps ~6 hrs, except last night had discomfort in the L hip and down lateral upper thigh). LTG Duration 10/01/20 (07/19/20: Sleeping ~6hrs with Tylenol) One Impairment Lacks appropriate self care HEP. Senior Living Goal (LTG) Pt will be independent with a self care HEP. LTG Duration 10/01/20 (07/12/20: Progressing) Assessment Summary Assessment Pt monserrat session well and he is back to baseline before his fall 3 weeks ago. Started practicing step up for SL strengthening and balance training. Physical Therapy Plan Frequency and Duration Frequency of Treatment 2x/Week Plan of Care Start Date 07/19/20 Plan of Care End Date 10/17/20 Next Visit Focus/Plan Next Note Type Treatment Note Next Visit Plan Add to HEP: hip ROM L hip AB stretch, check hip IR/ER strength. Stretch L hip ER's & strengthen R if symmetry needed. Monitor Sacral positioning & SIJ dysfunction of flare/rotation (see assessment), Start with upright ex bike if normal pelvic alignment to progress lumbar/pelvic stabilization. Mob to sacrum as needed. ( Tests: log roll - found negative, check: Stinchfield, Distraction & Lateral compression, Thigh Thrust, Gaenslen). Monitor SIJ for possible R downslip. Lumbar/ pelvic stabilization exercises .
--- NOTE | 2020-10-05 12:07 | PT.OTN ---
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 History of Current Condition Pain onset insidious. States he has disc problems in the back and it was thought he had a pinched nerve. The injection provided relief for 1.5 days. Now he feels he is getting progressively worse. Getting up in the morning pain is 8-10/10 and lessens during the day to 3-4/10. After sitting for awhile (1 hr) after walking to the kitchen his pain increases. By bedtime pain is 6-10/10. Sleeps 4-5 hrs and then must get up due to the pain. Not able to take pain pills due to bowel problems. Takes Tylenol nightly and upon waking to help control the pain. Prior Treatments and Tests Dr. Bowen gave him a shot in the back and a week lateral to hip. Pain was a little better after the injections. Pain changed from 10 to 4. Future Testing and Treatments Planned Dr. Bowen follow up in July. Treatment Goals Patient/Caregiver Goals Pt goals: Walk dog with . Decrease pain to sleep 6-8 hrs peacefully without use of Tylenol. Decrease use of Tylenol for sleep. Prior Functional Status Baseline Function- ADL's Independent Baseline Function- Mobility Independent Baseline Function- Gait Pt able to walk without difficulty. Baseline Function- Other Not able to walk with to walk dog due to feeling of leg giving way. Able to sleep 6-8 hours per night. Current Functional Impairments (Reported) Functional Limitations- Mobility/Gait Pain with walking, not steady. Functional Limitations- Recreation/ Walked with to walk dog 1 Hobbies mile. 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 L knee has not been able to straighten for ~ 2 yrs. Current Dx (per history review ): Left herniated disc (L5-S1 ), Hip Osteoarthritis, Polymyalgia rheumatica, spondylosis of lumbar spine, and HTN. PT-OP-C Subjective Start: 06/02/20 18:24 Freq: Status: Active Protocol: Document 10/05/20 11:16 HH (Rec: 10/05/20 12:07 HH [id number]) OP-PT Subjective Patient Comments Patient Comments I fell on my butt a week ago when i was trying to sit on my chair but the pillow slipped out of the chair. So my buttocks has been sore since then. My L hip has been doing good and doesnt bother me Patient Reported Progress Improving PT-OP-D Balance Start: 06/02/20 18:24 Freq: Status: Active Protocol: Document 06/03/20 09:46 LRN (Rec: 06/03/20 16:33 LRN [id number]) OP-PT Balance Assessment Standing Balance Static Standing Balance Ability Poor Dynamic Standing Balance Ability Fair Standing Balance Comments Pt has loss of balance on initial standing, using plinth to stabilized at legs and snowden as standing time increases. Pt did not tolerate static standing for > 5' before pain in LLE caused him to request sitting. Alba Fall Scale Copyright Permission PT-OP-E Functional Tests Start: 06/02/20 18:24 Freq: Status: Active Protocol: Document 08/30/20 09:54 HH (Rec: 08/30/20 10:30 HH [id number]) Functional Tests 30 Second Sit to Stand Test Score 7 Comments completed 7 times, 4 of them without pushed off from armrests Timed Up and Go (TUG) Score 10.6 TUG Impairment Rating 0% Impaired (Score 10) PT-OP-G Mobility & Gait Start: 06/02/20 18:24 Freq: Status: Active Protocol: Document 06/03/20 09:46 LRN (Rec: 06/03/20 14:51 LRN [id number]) OP Gait Assessment Gait Gait Assistance Required: Standby Assistance Distance (Feet) 60 Able to Maintain Weight Bearing Status Yes During Gait Assistive Devices Assistive Device None Gait Deviations General Gait Pattern Decreased Stride Length, Decreased Feet Clearance, Flexed Trunk,Wide Based Gait Factors Limiting Gait Function Factors Limiting Gait Function Decreased Activity Tolerance, Decreased Strength,Pain,Poor Balance PT-OP-H Neuro Start: 06/02/20 18:24 Freq: Status: Active Protocol: Document 06/03/20 09:46 LRN (Rec: 06/03/20 14:51 LRN [id number]) Sensation Evaluation Gross Sensation Gross Sensation Left LE Impaired Sensation Description Numbness,Pain Dermatome Impairments L4,L5,S1 Deep Tendon Reflex & Clonus Assessment Deep Tendon Reflex Left Achilles Deep Tendon Reflex 0 Absent Bilateral Patellar Deep Tendon Reflex 1+ Diminished PT-OP-J Posture/Palpation/Skin Start: 06/02/20 18:24 Freq: Status: Active Protocol: Document 06/03/20 09:46 LRN (Rec: 06/03/20 14:51 LRN [id number]) Posture Evaluation Position Standing Head/C-Spine Posture Forward Head L-Spine Posture Flattened Pelvis Posture Posterior Tilted Hip Posture (L) Flexed,(R) Flexed Palpation Assessment Location L TFL Palpation Location TFL Muscle belly Palpation Findings Tenderness L lateral hip Palpation Location Greater trochanter Palpation Findings Tenderness PT-OP-K Range of Motion Start: 06/02/20 18:24 Freq: Status: Active Protocol: Document 06/08/20 14:27 LRN (Rec: 06/08/20 15:30 LRN [id number]) Lumbar Spine Range of Motion Lumbar Spine Active Degrees Testing Position Standing Flexion 7 Extension 5 Lateral Flexion Left 10 Lateral Flexion Right 15 Comments Trunk flex: 5 hip flex Trunk ext: 5 hip ext PT-OP-L Special Tests Start: 06/02/20 18:24 Freq: Status: Active Protocol: Document 06/03/20 09:46 LRN (Rec: 06/03/20 14:51 LRN [id number]) Special Tests Lumbar Spine Special Tests Straight Leg Raise Test Results Neg bilaterally Comments Hamstring tightness Hip Special Tests AILEEN Test Results + R for anterior groin pain Comments Indicates possible SIJ dysfunction Other Special Tests Special Tests December Test: + Right. Indicates possible SIJ dysfunction. PT-OP-M Strength Start: 06/02/20 18:24 Freq: Status: Active Protocol: Document 08/30/20 09:54 HH (Rec: 08/30/20 10:30 HH [id number]) Hip Strength Hip Manual Muscle Testing Right Abduction 4- Good- PT-OP-Q Treatments Start: 06/02/20 18:24 Freq: Status: Active Protocol: Document 10/05/20 11:16 HH (Rec: 10/05/20 12:07 [id number]) Cardio Equipment Bicycle (Upright) Duration (Minutes) 8 Resistance 7 Seat Position 3 Therapeutic Exercises Supine Exercises ab curl Reps/Minutes 10 x2 Comments uses of low abs and hip flexion LTR Side bilateral Reps/Minutes 8x2 Comments cues on lumbar rotation only Fig 4 stretch Side bilateral Reps/Minutes 10 sec x 4 Piriformis stretch Supine Exercise Name knee to opp chest Reps/Minutes 10 sec x 4 Sitting Exercises seated trunk flexion. Equipment Used large YouNoodle ball. Reps/Minutes 8 x2 Comments full trunk flexion, pt reports good feeling Standing Exercises toe tap Side bilateral Reps/Minutes 6 step Comments 20 x 2 Gait Training Gait Activity ground level Level of Assistance SBA Surface ground level Distance/Duration 200 ft x 2 Comments pt has lack of L knee extension during stance phase. and tripped her L foot on the first lap and this PT prevented him from falling by using gait belt. Manual Therapy Treatment Soft Tissue Mobilization glutes and piriformis Mobilization Type Sustained Pressure,Trigger Point Release Intensity/Depth Moderate Body Position Sidelying Comments noticed new onset of tenderness/ soreness today. PT-OP-T Assessment and Plan Start: 06/02/20 18:24 Freq: Status: Active Protocol: Document 10/05/20 11:16 HH (Rec: 10/05/20 12:07 [id number]) Physical Therapy Assessment Goals 30 STS Impairment pt completed 7 times, 4 of them without armrest push offs . Short Term Goal (STG) Pt will be able to complete 7 times STS in 30 secs without using arms to push off. STG Duration 4 weeks Snf Goal (LTG) pt will be able to complete 10 times STS in 30 secs with arm push offs. LTG Duration 8 weeks Four Impairment Decreased L hip strength (AB 2 +/5, AD 1/5) Short Term Goal (STG) Pt will be able to move in bed with tolerable pain. (07/19/20: No change in L hip strength) 08/30 L hip abd strength 4-/5 STG Duration 07/16/20 (07/19/20: Moving in bed pain is 7/10) Snf Goal (LTG) 08/30 Pt is able to ambulate stairs (step over 1 handrail) and level ground with confidence to return to dog walking with his . LTG Duration 10/01/20 Three Impairment Decreased balance, loss of balance on initial standing and after 5'. Short Term Goal (STG) Pt will be able to transfer sit to stand without fear of losing his balance, and decreased TUG score to 19 sec' s. (07/19/20: TUG score 20, improved from 24 initially. Pt is very aware and concerned with sit to stand loss of balance). STG Duration 07/16/20 (07/19/20: Improved) Snf Goal (LTG) 08/30 goal met Pt is able to complete TUG in avg. 10.6 s in 3 trials. Decrease TUG time to 13-14 sec 's with pt able to stand > 5' without fear of loss of balance. LTG Duration 10/01/20 Two Impairment LLE pain from hip to foot rated 0-9/10, disturbing sleep . Short Term Goal (STG) Pt will reduce his need for Tylenol and will improve standing tolerance such that he will be able to exercise through an entire PT session. (07/19/20: Taking Tylenol in AM & PM and only 15% in afternoon, previously took AM & PM, and 2x at noon). STG Duration 07/16/20 (07/19/20: Progressing, pt rarely taking Tylenol at noon) Mac Operator Goal (LTG) 08/30 Pt tool 2 tylenol for the entire week last week 08/30 goal met pt is able to sleep 6-8 hours in a daily basiss (07/19/20: Sleeps ~6 hrs, except last night had discomfort in the L hip and down lateral upper thigh). LTG Duration 10/01/20 (07/19/20: Sleeping ~6hrs with Tylenol) One Impairment Lacks appropriate self care HEP. Snf Goal (LTG) Pt will be independent with a self care HEP. LTG Duration 10/01/20 (07/12/20: Progressing) Assessment Summary Assessment Pt 's L hip has been consistently doing well. However, he fell accidentally last week from the chair which gave him some soreness at sacral area but pain improved after trunk mobility exercises . Pt overall Strength and activity tolerance have decreased after both falls from last week and early august. He wasnt able to stand up from reg chair today without using UE support. Will progress pt accordingly again . Physical Therapy Plan Frequency and Duration Frequency of Treatment 2x/Week Plan of Care Start Date 07/19/20 Plan of Care End Date 10/17/20 Next Visit Focus/Plan Next Note Type Treatment Note Next Visit Plan Add to HEP: hip ROM L hip AB stretch, check hip IR/ER strength. Stretch L hip ER's & strengthen R if symmetry needed. Monitor Sacral positioning & SIJ dysfunction of flare/rotation (see assessment), Start with upright ex bike if normal pelvic alignment to progress lumbar/pelvic stabilization. Mob to sacrum as needed. ( Tests: log roll - found negative, check: Stinchfield, Distraction & Lateral compression, Thigh Thrust, Gaenslen). Monitor SIJ for possible R downslip. Lumbar/ pelvic stabilization exercises .
--- NOTE | 2020-10-07 12:03 | PT.OTN ---
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 History of Current Condition Pain onset insidious. States he has disc problems in the back and it was thought he had a pinched nerve. The injection provided relief for 1.5 days. Now he feels he is getting progressively worse. Getting up in the morning pain is 8-10/10 and lessens during the day to 3-4/10. After sitting for awhile (1 hr) after walking to the kitchen his pain increases. By bedtime pain is 6-10/10. Sleeps 4-5 hrs and then must get up due to the pain. Not able to take pain pills due to bowel problems. Takes Tylenol nightly and upon waking to help control the pain. Prior Treatments and Tests Dr. Bowen gave him a shot in the back and a week lateral to hip. Pain was a little better after the injections. Pain changed from 10 to 4. Future Testing and Treatments Planned Dr. Bowen follow up in July. Treatment Goals Patient/Caregiver Goals Pt goals: Walk dog with . Decrease pain to sleep 6-8 hrs peacefully without use of Tylenol. Decrease use of Tylenol for sleep. Prior Functional Status Baseline Function- ADL's Independent Baseline Function- Mobility Independent Baseline Function- Gait Pt able to walk without difficulty. Baseline Function- Other Not able to walk with to walk dog due to feeling of leg giving way. Able to sleep 6-8 hours per night. Current Functional Impairments (Reported) Functional Limitations- Mobility/Gait Pain with walking, not steady. Functional Limitations- Recreation/ Walked with to walk dog 1 Hobbies mile. 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 L knee has not been able to straighten for ~ 2 yrs. Current Dx (per history review ): Left herniated disc (L5-S1 ), Hip Osteoarthritis, Polymyalgia rheumatica, spondylosis of lumbar spine, and HTN. PT-OP-C Subjective Start: 06/02/20 18:24 Freq: Status: Active Protocol: Document 10/07/20 11:21 HH (Rec: 10/07/20 12:03 HH [id number]) OP-PT Subjective Patient Comments Patient Comments I felt pretty good after last time but yesterday i somehow felt a tweak on my back but it got better today Patient Reported Progress Improving PT-OP-D Balance Start: 06/02/20 18:24 Freq: Status: Active Protocol: Document 06/03/20 09:46 LRN (Rec: 06/03/20 16:33 LRN [id number]) OP-PT Balance Assessment Standing Balance Static Standing Balance Ability Poor Dynamic Standing Balance Ability Fair Standing Balance Comments Pt has loss of balance on initial standing, using plinth to stabilized at legs and snowden as standing time increases. Pt did not tolerate static standing for > 5' before pain in LLE caused him to request sitting. Alba Fall Scale Copyright Permission PT-OP-E Functional Tests Start: 06/02/20 18:24 Freq: Status: Active Protocol: Document 08/30/20 09:54 HH (Rec: 08/30/20 10:30 HH [id number]) Functional Tests 30 Second Sit to Stand Test Score 7 Comments completed 7 times, 4 of them without pushed off from armrests Timed Up and Go (TUG) Score 10.6 TUG Impairment Rating 0% Impaired (Score 10) PT-OP-G Mobility & Gait Start: 06/02/20 18:24 Freq: Status: Active Protocol: Document 06/03/20 09:46 LRN (Rec: 06/03/20 14:51 LRN [id number]) OP Gait Assessment Gait Gait Assistance Required: Standby Assistance Distance (Feet) 60 Able to Maintain Weight Bearing Status Yes During Gait Assistive Devices Assistive Device None Gait Deviations General Gait Pattern Decreased Stride Length, Decreased Feet Clearance, Flexed Trunk,Wide Based Gait Factors Limiting Gait Function Factors Limiting Gait Function Decreased Activity Tolerance, Decreased Strength,Pain,Poor Balance PT-OP-H Neuro Start: 06/02/20 18:24 Freq: Status: Active Protocol: Document 06/03/20 09:46 LRN (Rec: 06/03/20 14:51 LRN [id number]) Sensation Evaluation Gross Sensation Gross Sensation Left LE Impaired Sensation Description Numbness,Pain Dermatome Impairments L4,L5,S1 Deep Tendon Reflex & Clonus Assessment Deep Tendon Reflex Left Achilles Deep Tendon Reflex 0 Absent Bilateral Patellar Deep Tendon Reflex 1+ Diminished PT-OP-J Posture/Palpation/Skin Start: 06/02/20 18:24 Freq: Status: Active Protocol: Document 06/03/20 09:46 LRN (Rec: 06/03/20 14:51 LRN [id number]) Posture Evaluation Position Standing Head/C-Spine Posture Forward Head L-Spine Posture Flattened Pelvis Posture Posterior Tilted Hip Posture (L) Flexed,(R) Flexed Palpation Assessment Location L TFL Palpation Location TFL Muscle belly Palpation Findings Tenderness L lateral hip Palpation Location Greater trochanter Palpation Findings Tenderness PT-OP-K Range of Motion Start: 06/02/20 18:24 Freq: Status: Active Protocol: Document 06/08/20 14:27 LRN (Rec: 06/08/20 15:30 LRN [id number]) Lumbar Spine Range of Motion Lumbar Spine Active Degrees Testing Position Standing Flexion 7 Extension 5 Lateral Flexion Left 10 Lateral Flexion Right 15 Comments Trunk flex: 5 hip flex Trunk ext: 5 hip ext PT-OP-L Special Tests Start: 06/02/20 18:24 Freq: Status: Active Protocol: Document 06/03/20 09:46 LRN (Rec: 06/03/20 14:51 LRN [id number]) Special Tests Lumbar Spine Special Tests Straight Leg Raise Test Results Neg bilaterally Comments Hamstring tightness Hip Special Tests AILEEN Test Results + R for anterior groin pain Comments Indicates 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 Indicates possible SIJ dysfunction. PT-OP-M Strength Start: 06/02/20 18:24 Freq: Status: Active Protocol: Document 08/30/20 09:54 HH (Rec: 08/30/20 10:30 HH [id number]) Hip Strength Hip Manual Muscle Testing Right Abduction 4- Good- PT-OP-Q Treatments Start: 06/02/20 18:24 Freq: Status: Active Protocol: Document 10/07/20 11:21 HH (Rec: 10/07/20 12:03 HH [id number]) Cardio Equipment Bicycle (Upright) Duration (Minutes) 8 Resistance 7 Seat Position 3 Therapeutic Exercises Supine Exercises straight leg raise Reps/Minutes 6 x2 Fig 4 stretch Side bilateral Reps/Minutes 10 sec x 4 Bridge Reps/Minutes 8 x2 Comments no pain noted Sitting Exercises seated trunk flexion. Equipment Used large red therapy ball. Reps/Minutes 8 x2 Comments full trunk flexion, pt reports good feeling Standing Exercises marching in plce Side bilateral Reps/Minutes 10 x5 Comments cues on soft steps step up Side bilateral Equipment Used 6 step Reps/Minutes 10 x2 Sit to Stand Equipment Used grab bar Reps/Minutes 3 x 3 Comments pt has to use grab bar for support today d/t increased back pain Manual Therapy Treatment Soft Tissue Mobilization glutes and piriformis Mobilization Type Sustained Pressure,Trigger Point Release Intensity/Depth Moderate Body Position Sidelying Comments noticed new onset of tenderness/ soreness today. PT-OP-T Assessment and Plan Start: 06/02/20 18:24 Freq: Status: Active Protocol: Document 10/07/20 11:21 HH (Rec: 10/07/20 12:03 HH [id number]) Physical Therapy Assessment Goals 30 STS Impairment pt completed 7 times, 4 of them without armrest push offs . Short Term Goal (STG) Pt will be able to complete 7 times STS in 30 secs without using arms to push off. STG Duration 4 weeks Detention Goal (LTG) pt will be able to complete 10 times STS in 30 secs with arm push offs. LTG Duration 8 weeks Four Impairment Decreased L hip strength (AB 2 +/5, AD 1/5) Short Term Goal (STG) Pt will be able to move in bed with tolerable pain. (07/19/20: No change in L hip strength) 08/30 L hip abd strength 4-/5 STG Duration 07/16/20 (07/19/20: Moving in bed pain is 7/10) Detention Goal (LTG) 08/30 Pt is able to ambulate stairs (step over 1 handrail) and level ground with confidence to return to dog walking with his . LTG Duration 10/01/20 Three Impairment Decreased balance, loss of balance on initial standing and after 5'. Short Term Goal (STG) Pt will be able to transfer sit to stand without fear of losing his balance, and decreased TUG score to 19 sec' s. (07/19/20: TUG score 20, improved from 24 initially. Pt is very aware and concerned with sit to stand loss of balance). STG Duration 07/16/20 (07/19/20: Improved) Physical Education Aide Goal (LTG) 08/30 goal met Pt is able to complete TUG in avg. 10.6 s in 3 trials. Decrease TUG time to 13-14 sec 's with pt able to stand > 5' without fear of loss of balance. LTG Duration 10/01/20 Two Impairment LLE pain from hip to foot rated 0-9/10, disturbing sleep . Short Term Goal (STG) Pt will reduce his need for Tylenol and will improve standing tolerance such that he will be able to exercise through an entire PT session. (07/19/20: Taking Tylenol in AM & PM and only 15% in afternoon, previously took AM & PM, and 2x at noon). STG Duration 07/16/20 (07/19/20: Progressing, pt rarely taking Tylenol at noon) Physical Education Aide Goal (LTG) 08/30 Pt tool 2 tylenol for the entire week last week 08/30 goal met pt is able to sleep 6-8 hours in a daily basiss (07/19/20: Sleeps ~6 hrs, except last night had discomfort in the L hip and down lateral upper thigh). LTG Duration 10/01/20 (07/19/20: Sleeping ~6hrs with Tylenol) One Impairment Lacks appropriate self care HEP. Detention Goal (LTG) Pt will be independent with a self care HEP. LTG Duration 10/01/20 (07/12/20: Progressing) Assessment Summary Assessment Pt has increased low back tightness and back pain since yesterday which is possibly d/ t his most recent fall who landed on his sacrum. But it got better with seated trunk flexion stretch. Physical Therapy Plan Frequency and Duration Frequency of Treatment 2x/Week Plan of Care Start Date 07/19/20 Plan of Care End Date 10/17/20 Next Visit Focus/Plan Next Note Type Treatment Note Next Visit Plan Add to HEP: hip ROM L hip AB stretch, check hip IR/ER strength. Stretch L hip ER's & strengthen R if symmetry needed. Monitor Sacral positioning & SIJ dysfunction of flare/rotation (see assessment), Start with upright ex bike if normal pelvic alignment to progress lumbar/pelvic stabilization. Mob to sacrum as needed. ( Tests: log roll - found negative, check: Stinchfield, Distraction & Lateral compression, Thigh Thrust, Gaenslen). Monitor SIJ for possible R downslip. Lumbar/ pelvic stabilization exercises .
--- NOTE | 2020-10-12 09:45 | PT.OTN ---
Current Diagnoses Osteoarthritis of hip, unspecified (10/12/20) Other intervertebral disc displacement, lumbosacral region (10/12/20) Muscle weakness (generalized) (10/12/20) Unsteadiness on feet (10/12/20) Physical Therapy Treatment Note PT-OP-A Visit Information Start: 06/02/20 18:24 Freq: Status: Active Protocol: Document 10/12/20 09:02 MB (Rec: 10/12/20 09:43 MB [id number]) Out-Patient Physical Therapy Visit Information Visit Information Visit Type Treatment Note Visit Start Time 09:02 Visit Stop Time 09:45 Total Visit Minutes 43 Visit Number 25 PT-OP-B Current Condition Start: 06/02/20 18:24 Freq: Status: Active Protocol: Document 06/03/20 09:46 LRN (Rec: 06/03/20 10:43 LRN [id number]) Current Condition History of Current Condition Onset Date 2.5 months Current Complaints L hip and leg pain, buttock to foot down lateral LE. History of Current Condition Pain onset insidious. States he has disc problems in the back and it was thought he had a pinched nerve. The injection provided relief for 1.5 days. Now he feels he is getting progressively worse. Getting up in the morning pain is 8-10/10 and lessens during the day to 3-4/10. After sitting for awhile (1 hr) after walking to the kitchen his pain increases. By bedtime pain is 6-10/10. Sleeps 4-5 hrs and then must get up due to the pain. Not able to take pain pills due to bowel problems. Takes Tylenol nightly and upon waking to help control the pain. Prior Treatments and Tests Dr. Bowen gave him a shot in the back and a week lateral to hip. Pain was a little better after the injections. Pain changed from 10 to 4. Future Testing and Treatments Planned Dr. Bowen follow up in July. Treatment Goals Patient/Caregiver Goals Pt goals: Walk dog with . Decrease pain to sleep 6-8 hrs peacefully without use of Tylenol. Decrease use of Tylenol for sleep. Prior Functional Status Baseline Function- ADL's Independent Baseline Function- Mobility Independent Baseline Function- Gait Pt able to walk without difficulty. Baseline Function- Other Not able to walk with to walk dog due to feeling of leg giving way. Able to sleep 6-8 hours per night. Current Functional Impairments (Reported) Functional Limitations- Mobility/Gait Pain with walking, not steady. Functional Limitations- Recreation/ Walked with to walk dog 1 [address]. 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 L knee has not been able to straighten for ~ 2 yrs. Current Dx (per history review ): Left herniated disc (L5-S1 ), Hip Osteoarthritis, Polymyalgia rheumatica, spondylosis of lumbar spine, and HTN. PT-OP-C Subjective Start: 06/02/20 18:24 Freq: Status: Active Protocol: Document 10/12/20 09:02 MB (Rec: 10/12/20 09:43 MB [id number]) OP-PT Subjective Patient Comments Patient Comments I'm doing good. PT-OP-D Balance Start: 06/02/20 18:24 Freq: Status: Active Protocol: Document 06/03/20 09:46 LRN (Rec: 06/03/20 16:33 LRN [id number]) OP-PT Balance Assessment Standing Balance Static Standing Balance Ability Poor Dynamic Standing Balance Ability Fair Standing Balance Comments Pt has loss of balance on initial standing, using plinth to stabilized at legs and snowden as standing time increases. Pt did not tolerate static standing for > 5' before pain in LLE caused him to request sitting. [place] Fall Scale Copyright Permission PT-OP-E Functional Tests Start: 06/02/20 18:24 Freq: Status: Active Protocol: Document 08/30/20 09:54 HH (Rec: 08/30/20 10:30 HH [id number]) Functional Tests 30 Second Sit to Stand Test Score 7 Comments completed 7 times, 4 of them without pushed off from armrests Timed Up and Go (TUG) Score 10.6 TUG Impairment Rating 0% Impaired (Score 10) PT-OP-G Mobility & Gait Start: 06/02/20 18:24 Freq: Status: Active Protocol: Document 06/03/20 09:46 LRN (Rec: 06/03/20 14:51 LRN [id number]) OP Gait Assessment Gait Gait Assistance Required: Standby Assistance Distance (Feet) 60 Able to Maintain Weight Bearing Status Yes During Gait Assistive Devices Assistive Device None Gait Deviations General Gait Pattern Decreased Stride Length, Decreased Feet Clearance, Flexed Trunk,Wide Based Gait Factors Limiting Gait Function Factors Limiting Gait Function Decreased Activity Tolerance, Decreased Strength,Pain,Poor Balance PT-OP-H Neuro Start: 06/02/20 18:24 Freq: Status: Active Protocol: Document 06/03/20 09:46 LRN (Rec: 06/03/20 14:51 LRN [id number]) Sensation Evaluation Gross Sensation Gross Sensation Left LE Impaired Sensation Description Numbness,Pain Dermatome Impairments L4,L5,S1 Deep Tendon Reflex & Clonus Assessment Deep Tendon Reflex Left Achilles Deep Tendon Reflex 0 Absent Bilateral Patellar Deep Tendon Reflex 1+ Diminished PT-OP-J Posture/Palpation/Skin Start: 06/02/20 18:24 Freq: Status: Active Protocol: Document 06/03/20 09:46 LRN (Rec: 06/03/20 14:51 LRN [id number]) Posture Evaluation Position Standing Head/C-Spine Posture Forward Head L-Spine Posture Flattened Pelvis Posture Posterior Tilted Hip Posture (L) Flexed,(R) Flexed Palpation Assessment Location L TFL Palpation Location TFL Muscle belly Palpation Findings Tenderness L lateral hip Palpation Location Greater trochanter Palpation Findings Tenderness PT-OP-K Range of Motion Start: 06/02/20 18:24 Freq: Status: Active Protocol: Document 06/08/20 14:27 LRN (Rec: 06/08/20 15:30 LRN [id number]) Lumbar Spine Range of Motion Lumbar Spine Active Degrees Testing Position Standing Flexion 7 Extension 5 Lateral Flexion Left 10 Lateral Flexion Right 15 Comments Trunk flex: 5 hip flex Trunk ext: 5 hip ext PT-OP-L Special Tests Start: 06/02/20 18:24 Freq: Status: Active Protocol: Document 06/03/20 09:46 LRN (Rec: 06/03/20 14:51 LRN [id number]) Special Tests Lumbar Spine Special Tests Straight Leg Raise Test Results Neg bilaterally Comments Hamstring tightness Hip Special Tests AILEEN Test Results + R for anterior groin pain Comments Indicates 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 Indicates possible SIJ dysfunction. PT-OP-M Strength Start: 06/02/20 18:24 Freq: Status: Active Protocol: Document 08/30/20 09:54 HH (Rec: 08/30/20 10:30 HH [id number]) Hip Strength Hip Manual Muscle Testing Right Abduction 4- Good- PT-OP-Q Treatments Start: 06/02/20 18:24 Freq: Status: Active Protocol: Document 10/12/20 09:02 MB (Rec: 10/12/20 09:43 MB [id number]) Cardio Equipment Bicycle (Upright) Duration (Minutes) 10 Resistance 10 Seat Position 7 Therapeutic Exercises Sitting Exercises Clam with glute squeeze Side bilateral Equipment Used Level 1 band Comments Glute squeeze first, then abduction, 20 reps Sit to stands Comments 30 sec 4 reps, 5 reps, 6 reps, UE support on mesh chair with no arm rests Hamstring stretch Side bilateral Comments 45 sec each leg Hip rotator stretch Side bilateral Comments 45 sec each leg PT-OP-T Assessment and Plan Start: 06/02/20 18:24 Freq: Status: Active Protocol: Document 10/12/20 09:02 MB (Rec: 10/12/20 09:43 MB [id number]) Physical Therapy Assessment Goals 30 STS Impairment pt completed 7 times, 4 of them without armrest push offs . Short Term Goal (STG) Pt will be able to complete 7 times STS in 30 secs without using arms to push off. STG Duration 4 weeks [employer]igator [employer] Goal (LTG) pt will be able to complete 10 times STS in 30 secs with arm push offs. LTG Duration 8 weeks Four Impairment Decreased L hip strength (AB 2 +/5, AD 1/5) Short Term Goal (STG) Pt will be able to move in bed with tolerable pain. (07/19/20: No change in L hip strength) 08/30 L hip abd strength 4-/5 STG Duration 07/16/20 (07/19/20: Moving in bed pain is 7/10) [employer] Goal (LTG) 08/30 Pt is able to ambulate stairs (step over 1 handrail) and level ground with confidence to return to dog walking with his . LTG Duration 10/01/20 Three Impairment Decreased balance, loss of balance on initial standing and after 5'. Short Term Goal (STG) Pt will be able to transfer sit to stand without fear of losing his balance, and decreased TUG score to 19 sec' s. (07/19/20: TUG score 20, improved from 24 initially. Pt is very aware and concerned with sit to stand loss of balance). STG Duration 07/16/20 (07/19/20: Improved) Mcc Goal (LTG) 08/30 goal met Pt is able to complete TUG in avg. 10.6 s in 3 trials. Decrease TUG time to 13-14 sec 's with pt able to stand > 5' without fear of loss of balance. LTG Duration 10/01/20 Two Impairment LLE pain from hip to foot rated 0-9/10, disturbing sleep . Short Term Goal (STG) Pt will reduce his need for Tylenol and will improve standing tolerance such that he will be able to exercise through an entire PT session. (07/19/20: Taking Tylenol in AM & PM and only 15% in afternoon, previously took AM & PM, and 2x at noon). STG Duration 07/16/20 (07/19/20: Progressing, pt rarely taking Tylenol at noon) Mcc Goal (LTG) 08/30 Pt tool 2 tylenol for the entire week last week 08/30 goal met pt is able to sleep 6-8 hours in a daily basiss (07/19/20: Sleeps ~6 hrs, except last night had discomfort in the L hip and down lateral upper thigh). LTG Duration 10/01/20 (07/19/20: Sleeping ~6hrs with Tylenol) One Impairment Lacks appropriate self care HEP. [employer]igator [employer] Goal (LTG) Pt will be independent with a self care HEP. LTG Duration 10/01/20 (07/12/20: Progressing) Assessment Summary Assessment BP and HR in LUE: sitting 124/ 78, 64; standing 119/72, 68; standing 1' 125/78, 70. Pt states that he cannot do heavy strengthening today. His left knee is bothersome. Con't per primary therapist's plan of care and primary therapist will reassess for progress note after next treatment ( next week). Physical Therapy Plan Frequency and Duration Frequency of Treatment 2x/Week Plan of Care Start Date 07/19/20 Plan of Care End Date 10/17/20 Next Visit Focus/Plan Next Note Type Treatment Note Next Visit Plan Manual work for right greater than left knee next treatment date. Con't per primary therapist's plan: Add to HEP: hip ROM L hip AB stretch, check hip IR/ER strength. Stretch L hip ER's & strengthen R if symmetry needed. Monitor Sacral positioning & SIJ dysfunction of flare/rotation (see assessment), Start with upright ex bike if normal pelvic alignment to progress lumbar/pelvic stabilization. Mob to sacrum as needed. ( Tests: log roll - found negative, check: [place], Distraction & Lateral compression, Thigh Thrust, [place]). Monitor SIJ for possible R downslip. Lumbar/ pelvic stabilization exercises .
--- NOTE | 2020-10-26 09:44 | PT.OPPOC ---
Physical, Occupational & Speech Therapy At [facility] Current Diagnoses Osteoarthritis of hip, unspecified (10/26/20) Other intervertebral disc displacement, lumbosacral region (10/26/20) Muscle weakness (generalized) (10/26/20) Unsteadiness on feet (10/26/20) Visit Care Team Role Provider Type Samson Perez MD Primary Care Provider Physician Specialty: Family Practice Address: [address] [place] [address], [id number] Email: [email or web address] Jamir Bowen DO Attending Provider Physician Referring Provider Specialty: Physiatry Pain Management Address: [address] [place] [address], [id number] Email: [email or web address] Plan Of Care PT-OP-T Assessment and Plan Start: 06/02/20 18:24 Freq: Status: Active Protocol: Document 10/26/20 08:52 HH (Rec: 10/26/20 09:44 HH [id number]) Physical Therapy Assessment Goals 6MWT Impairment 6 MWT 30 STS Impairment pt completed 7 times, 4 of them without armrest push offs . Short Term Goal (STG) 10/26/20 Pt is able to complete 7 times STS in 30 secs without using arms to push off. STG Duration 4 weeks Shelter Goal (LTG) pt will be able to complete 10 times STS in 30 secs with arm push offs. LTG Duration 8 weeks Four Impairment Decreased L hip strength (AB 2 +/5, AD 1/5) Short Term Goal (STG) Pt will be able to move in bed with tolerable pain. (07/19/20: No change in L hip strength) 08/30 L hip abd strength 4-/5 STG Duration 07/16/20 (07/19/20: Moving in bed pain is 7/10) Shelter Goal (LTG) 08/30 Pt is able to ambulate stairs (step over 1 handrail) and level ground with confidence to return to dog walking with his . LTG Duration 10/01/20 Three Impairment Decreased balance, loss of balance on initial standing and after 5'. Short Term Goal (STG) Pt will be able to transfer sit to stand without fear of losing his balance, and decreased TUG score to 19 sec' s. (07/19/20: TUG score 20, improved from 24 initially. Pt is very aware and concerned with sit to stand loss of balance). STG Duration 07/16/20 (07/19/20: Improved) Shelter Goal (LTG) 10/26/20 TUG avg= 15s in 3 trials d/t weakness 08/30 goal met Pt is able to complete TUG in avg. 10.6 s in 3 trials. Decrease TUG time to 13-14 sec 's with pt able to stand > 5' without fear of loss of balance. LTG Duration 10/01/20 Two Impairment LLE pain from hip to foot rated 0-9/10, disturbing sleep . Short Term Goal (STG) 10/26 pt does not need to take any tylenol anymore Pt will reduce his need for Tylenol and will improve standing tolerance such that he will be able to exercise through an entire PT session. (07/19/20: Taking Tylenol in AM & PM and only 15% in afternoon, previously took AM & PM, and 2x at noon). STG Duration 07/16/20 (07/19/20: Progressing, pt rarely taking Tylenol at noon) Shelter Goal (LTG) 08/30 Pt tool 2 tylenol for the entire week last week 08/30 goal met pt is able to sleep 6-8 hours in a daily basiss (07/19/20: Sleeps ~6 hrs, except last night had discomfort in the L hip and down lateral upper thigh). LTG Duration 10/01/20 (07/19/20: Sleeping ~6hrs with Tylenol) One Impairment Lacks appropriate self care HEP. Shelter Goal (LTG) Pt will be independent with a self care HEP. LTG Duration 10/01/20 (07/12/20: Progressing) Progress Towards Goals Progress Towards Goals Slow Progress due to Medical Issues,Slow Progress - Other Assessment Summary Assessment Pt's L hip has been progressing well since his last progress note in August . His L hip has minimal pain ( no pain meds needed) with improved mobility. He is also able to maintain good sleep at night. However, pt has fell twice and recent bowel obstruction within the past 2 months which affects his endurance, strength, balance and compliance to HEP. His 6MWT = 986ft without AD but tripped twice and TUG= 15s. Pt will cont benefit from skilled therapy to assist Mark to regain his endurance, strength and balance to reduce his fall risks and injury prevention. Physical Therapy Plan Frequency and Duration Frequency of Treatment 2x/Week Duration of Treatment 8 weeks Plan of Care Start Date 10/26/20 Plan of Care End Date 12/25/20 Next Visit Focus/Plan Next Note Type Treatment Note Next Visit Plan balance focused, balacne, walking for endurance training , gait training Plan of Care Dates Plan of Care Start Date 10/26/20 Plan of Care End Date 12/25/20 Electronically Signed by: Zana Landry PT 10/26/20 0944 Please Sign and Return: I have reviewed this Plan of Care and certify that the skilled therapy services above are required to meet the patient?s needs. Physician Signature Date Printed Name and Credentials Clinical Instructor Signature Printed Name and Credentials
--- NOTE | 2020-10-26 09:44 | PT.OTN ---
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 History of Current Condition Pain onset insidious. States he has disc problems in the back and it was thought he had a pinched nerve. The injection provided relief for 1.5 days. Now he feels he is getting progressively worse. Getting up in the morning pain is 8-10/10 and lessens during the day to 3-4/10. After sitting for awhile (1 hr) after walking to the kitchen his pain increases. By bedtime pain is 6-10/10. Sleeps 4-5 hrs and then must get up due to the pain. Not able to take pain pills due to bowel problems. Takes Tylenol nightly and upon waking to help control the pain. Prior Treatments and Tests Dr. Bowen gave him a shot in the back and a week lateral to hip. Pain was a little better after the injections. Pain changed from 10 to 4. Future Testing and Treatments Planned Dr. Bowen follow up in July. Treatment Goals Patient/Caregiver Goals Pt goals: Walk dog with . Decrease pain to sleep 6-8 hrs peacefully without use of Tylenol. Decrease use of Tylenol for sleep. Prior Functional Status Baseline Function- ADL's Independent Baseline Function- Mobility Independent Baseline Function- Gait Pt able to walk without difficulty. Baseline Function- Other Not able to walk with to walk dog due to feeling of leg giving way. Able to sleep 6-8 hours per night. Current Functional Impairments (Reported) Functional Limitations- Mobility/Gait Pain with walking, not steady. Functional Limitations- Recreation/ Walked with to walk dog 1 H[address] mile. 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 L knee has not been able to straighten for ~ 2 yrs. Current Dx (per history review ): Left herniated disc (L5-S1 ), Hip Osteoarthritis, Polymyalgia rheumatica, spondylosis of lumbar spine, and HTN. PT-OP-C Subjective Start: 06/02/20 18:24 Freq: Status: Active Protocol: Document 10/26/20 08:52 (Rec: 10/26/20 09:44 [id number]) OP-PT Subjective Patient Comments Patient Comments I had a bowel obstruction 2 weeks ago and i was on liquid diet for 10-12 days and i was very weak and unsteady. My L hip is doing very good now. I could sleep pretty good now as well. Patient Reported Progress Worse PT-OP-D Balance Start: 06/02/20 18:24 Freq: Status: Active Protocol: Document 06/03/20 09:46 LRN (Rec: 06/03/20 16:33 LRN [id number]) OP-PT Balance Assessment Standing Balance Static Standing Balance Ability Poor Dynamic Standing Balance Ability Fair Standing Balance Comments Pt has loss of balance on initial standing, using plinth to stabilized at legs and snowden as standing time increases. Pt did not tolerate static standing for > 5' before pain in LLE caused him to request sitting. [place]ba Fall Scale Copyright Permission PT-OP-E Functional Tests Start: 06/02/20 18:24 Freq: Status: Active Protocol: Document 10/26/20 08:52 (Rec: 10/26/20 09:44 [id number]) Functional Tests 6 Minute Walk Test Distance 986 Device Used no SPC Comments pt tripped twice his toe and almost fell and needed assistance to recover 30 Second Sit to Stand Test Score 7 Comments with arms pushed off from chair Timed Up and Go (TUG) Score 15s Comments pt slows down at turns d/t feeling unsteadiness. TUG Impairment Rating 40 to <60% Impaired (Score 14- 15) PT-OP-G Mobility & Gait Start: 06/02/20 18:24 Freq: Status: Active Protocol: Document 10/26/20 08:52 HH (Rec: 10/26/20 09:44 HH [id number]) Stair Climbing Evaluation Comments Stair Climbing Comments step over pattern for ascending with L rail step to pattern for descending with L rail PT-OP-H Neuro Start: 06/02/20 18:24 Freq: Status: Active Protocol: Document 06/03/20 09:46 LRN (Rec: 06/03/20 14:51 LRN [id number]) Sensation Evaluation Gross Sensation Gross Sensation Left LE Impaired Sensation Description Numbness,Pain Dermatome Impairments L4,L5,S1 Deep Tendon Reflex & Clonus Assessment Deep Tendon Reflex Left Achilles Deep Tendon Reflex 0 Absent Bilateral Patellar Deep Tendon Reflex 1+ Diminished PT-OP-J Posture/Palpation/Skin Start: 06/02/20 18:24 Freq: Status: Active Protocol: Document 06/03/20 09:46 LRN (Rec: 06/03/20 14:51 LRN [id number]) Posture Evaluation Position Standing Head/C-Spine Posture Forward Head L-Spine Posture Flattened Pelvis Posture Posterior Tilted Hip Posture (L) Flexed,(R) Flexed Palpation Assessment Location L TFL Palpation Location TFL Muscle belly Palpation Findings Tenderness L lateral hip Palpation Location Greater trochanter Palpation Findings Tenderness PT-OP-K Range of Motion Start: 06/02/20 18:24 Freq: Status: Active Protocol: Document 06/08/20 14:27 LRN (Rec: 06/08/20 15:30 LRN [id number]) Lumbar Spine Range of Motion Lumbar Spine Active Degrees Testing Position Standing Flexion 7 Extension 5 Lateral Flexion Left 10 Lateral Flexion Right 15 Comments Trunk flex: 5 hip flex Trunk ext: 5 hip ext PT-OP-L Special Tests Start: 06/02/20 18:24 Freq: Status: Active Protocol: Document 06/03/20 09:46 LRN (Rec: 06/03/20 14:51 LRN [id number]) Special Tests Lumbar Spine Special Tests Straight Leg Raise Test Results Neg bilaterally Comments Hamstring tightness Hip Special Tests AILEEN Test Results + R for anterior groin pain Comments Indicates 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 Indicates possible SIJ dysfunction. PT-OP-M Strength Start: 06/02/20 18:24 Freq: Status: Active Protocol: Document 08/30/20 09:54 HH (Rec: 08/30/20 10:30 HH [id number]) Hip Strength Hip Manual Muscle Testing Right Abduction 4- Good- PT-OP-Q Treatments Start: 06/02/20 18:24 Freq: Status: Active Protocol: Document 10/26/20 08:52 HH (Rec: 10/26/20 09:44 HH [id number]) Self-Care/Home Management Treatment Education Patient Education Fall Risk,Safety Other Education Pt tends to have minimal feet clearance during gait. Noticed pt has bigger shoes (size 12) than his actual size 11. Educated pt to wear better fitting shoes to minimize fall risks. PT-OP-T Assessment and Plan Start: 06/02/20 18:24 Freq: Status: Active Protocol: Document 10/26/20 08:52 HH (Rec: 10/26/20 09:44 HH [id number]) Physical Therapy Assessment Goals 6MWT Impairment 6 MWT 30 STS Impairment pt completed 7 times, 4 of them without armrest push offs . Short Term Goal (STG) 10/26/20 Pt is able to complete 7 times STS in 30 secs without using arms to push off. STG Duration 4 weeks Integrated Program Teacher Goal (LTG) pt will be able to complete 10 times STS in 30 secs with arm push offs. LTG Duration 8 weeks Four Impairment Decreased L hip strength (AB 2 +/5, AD 1/5) Short Term Goal (STG) Pt will be able to move in bed with tolerable pain. (07/19/20: No change in L hip strength) 08/30 L hip abd strength 4-/5 STG Duration 07/16/20 (07/19/20: Moving in bed pain is 7/10) Senior Care Goal (LTG) 08/30 Pt is able to ambulate stairs (step over 1 handrail) and level ground with confidence to return to dog walking with his . LTG Duration 10/01/20 Three Impairment Decreased balance, loss of balance on initial standing and after 5'. Short Term Goal (STG) Pt will be able to transfer sit to stand without fear of losing his balance, and decreased TUG score to 19 sec' s. (07/19/20: TUG score 20, improved from 24 initially. Pt is very aware and concerned with sit to stand loss of balance). STG Duration 07/16/20 (07/19/20: Improved) Integrated Program Teacher Goal (LTG) 10/26/20 TUG avg= 15s in 3 trials d/t weakness 08/30 goal met Pt is able to complete TUG in avg. 10.6 s in 3 trials. Decrease TUG time to 13-14 sec 's with pt able to stand > 5' without fear of loss of balance. LTG Duration 10/01/20 Two Impairment LLE pain from hip to foot rated 0-9/10, disturbing sleep . Short Term Goal (STG) 10/26 pt does not need to take any tylenol anymore Pt will reduce his need for Tylenol and will improve standing tolerance such that he will be able to exercise through an entire PT session. (07/19/20: Taking Tylenol in AM & PM and only 15% in afternoon, previously took AM & PM, and 2x at noon). STG Duration 07/16/20 (07/19/20: Progressing, pt rarely taking Tylenol at noon) Integrated Program Teacher Goal (LTG) 08/30 Pt tool 2 tylenol for the entire week last week 08/30 goal met pt is able to sleep 6-8 hours in a daily basiss (07/19/20: Sleeps ~6 hrs, except last night had discomfort in the L hip and down lateral upper thigh). LTG Duration 10/01/20 (07/19/20: Sleeping ~6hrs with Tylenol) One Impairment Lacks appropriate self care HEP. Integrated Program Teacher Goal (LTG) Pt will be independent with a self care HEP. LTG Duration 10/01/20 (07/12/20: Progressing) Progress Towards Goals Progress Towards Goals Slow Progress due to Medical Issues,Slow Progress - Other Assessment Summary Assessment Pt's L hip has been progressing well since his last progress note in August . His L hip has minimal pain ( no pain meds needed) with improved mobility. He is also able to maintain good sleep at night. However, pt has fell twice and recent bowel obstruction within the past 2 months which affects his endurance, strength, balance and compliance to HEP. His 6MWT = 986ft without AD but tripped twice and TUG= 15s. Pt will cont benefit from skilled therapy to assist Mark to regain his endurance, strength and balance to reduce his fall risks and injury prevention. Physical Therapy Plan Frequency and Duration Frequency of Treatment 2x/Week Duration of Treatment 8 weeks Plan of Care Start Date 10/26/20 Plan of Care End Date 12/25/20 Next Visit Focus/Plan Next Note Type Treatment Note Next Visit Plan balance focused, balacne, walking for endurance training , gait training
--- NOTE | 2020-10-26 12:03 | PT.OPPOC ---
Physical, Occupational & Speech Therapy At [facility] Current Diagnoses Osteoarthritis of hip, unspecified (10/26/20) Other intervertebral disc displacement, lumbosacral region (10/26/20) Muscle weakness (generalized) (10/26/20) Unsteadiness on feet (10/26/20) Visit Care Team Role Provider Type Samson Perez MD Primary Care Provider Physician Specialty: Family Practice Address: [address] [place] [address], [id number] Email: [email or web address] Jamir Bowen DO Attending Provider Physician Referring Provider Specialty: Physiatry Pain Management Address: [address] [place] [address], [id number] Email: [email or web address] Plan Of Care PT-OP-T Assessment and Plan Start: 06/02/20 18:24 Freq: Status: Active Protocol: Document 10/26/20 08:52 HH (Rec: 10/26/20 09:44 HH [id number]) Physical Therapy Assessment Goals 6MWT Impairment 6 MWT 30 STS Impairment pt completed 7 times, 4 of them without armrest push offs . Short Term Goal (STG) 10/26/20 Pt is able to complete 7 times STS in 30 secs without using arms to push off. STG Duration 4 weeks Senior Living Goal (LTG) pt will be able to complete 10 times STS in 30 secs with arm push offs. LTG Duration 8 weeks Four Impairment Decreased L hip strength (AB 2 +/5, AD 1/5) Short Term Goal (STG) Pt will be able to move in bed with tolerable pain. (07/19/20: No change in L hip strength) 08/30 L hip abd strength 4-/5 STG Duration 07/16/20 (07/19/20: Moving in bed pain is 7/10) Senior Living Goal (LTG) 08/30 Pt is able to ambulate stairs (step over 1 handrail) and level ground with confidence to return to dog walking with his . LTG Duration 10/01/20 Three Impairment Decreased balance, loss of balance on initial standing and after 5'. Short Term Goal (STG) Pt will be able to transfer sit to stand without fear of losing his balance, and decreased TUG score to 19 sec' s. (07/19/20: TUG score 20, improved from 24 initially. Pt is very aware and concerned with sit to stand loss of balance). STG Duration 07/16/20 (07/19/20: Improved) Senior Living Goal (LTG) 10/26/20 TUG avg= 15s in 3 trials d/t weakness 08/30 goal met Pt is able to complete TUG in avg. 10.6 s in 3 trials. Decrease TUG time to 13-14 sec 's with pt able to stand > 5' without fear of loss of balance. LTG Duration 10/01/20 Two Impairment LLE pain from hip to foot rated 0-9/10, disturbing sleep . Short Term Goal (STG) 10/26 pt does not need to take any tylenol anymore Pt will reduce his need for Tylenol and will improve standing tolerance such that he will be able to exercise through an entire PT session. (07/19/20: Taking Tylenol in AM & PM and only 15% in afternoon, previously took AM & PM, and 2x at noon). STG Duration 07/16/20 (07/19/20: Progressing, pt rarely taking Tylenol at noon) Senior Living Goal (LTG) 08/30 Pt tool 2 tylenol for the entire week last week 08/30 goal met pt is able to sleep 6-8 hours in a daily basiss (07/19/20: Sleeps ~6 hrs, except last night had discomfort in the L hip and down lateral upper thigh). LTG Duration 10/01/20 (07/19/20: Sleeping ~6hrs with Tylenol) One Impairment Lacks appropriate self care HEP. Senior Living Goal (LTG) Pt will be independent with a self care HEP. LTG Duration 10/01/20 (07/12/20: Progressing) Progress Towards Goals Progress Towards Goals Slow Progress due to Medical Issues,Slow Progress - Other Assessment Summary Assessment Pt's L hip has been progressing well since his last progress note in August . His L hip has minimal pain ( no pain meds needed) with improved mobility. He is also able to maintain good sleep at night. However, pt has fell twice and recent bowel obstruction within the past 2 months which affects his endurance, strength, balance and compliance to HEP. His 6MWT = 986ft without AD but tripped twice and TUG= 15s. Pt will cont benefit from skilled therapy to assist Mark to regain his endurance, strength and balance to reduce his fall risks and injury prevention. Physical Therapy Plan Frequency and Duration Frequency of Treatment 2x/Week Duration of Treatment 8 weeks Plan of Care Start Date 10/26/20 Plan of Care End Date 12/25/20 Next Visit Focus/Plan Next Note Type Treatment Note Next Visit Plan balance focused, balacne, walking for endurance training , gait training Plan of Care Dates Plan of Care Start Date 10/26/20 Plan of Care End Date 12/25/20 Electronically Signed by: Zana Landry PT 10/26/20 [id number] Please Sign and Return: I have reviewed this Plan of Care and certify that the skilled therapy services above are required to meet the patient?s needs. Physician Signature Date Printed Name and Credentials Clinical Instructor Signature Printed Name and Credentials
--- NOTE | 2020-10-28 09:49 | PT.OTN ---
Current Diagnoses Osteoarthritis of hip, unspecified (10/28/20) Other intervertebral disc displacement, lumbosacral region (10/28/20) Muscle weakness (generalized) (10/28/20) Unsteadiness on feet (10/28/20) Physical Therapy Treatment Note PT-OP-A Visit Information Start: 06/02/20 18:24 Freq: Status: Active Protocol: Document 10/28/20 09:01 HH (Rec: 10/28/20 09:48 HH [id number]) Out-Patient Physical Therapy Visit Information Visit Information Visit Type Treatment Note Visit Start Time 09:03 Visit Stop Time 09:45 Total Visit Minutes 42 Visit Number 27 Number of FURNITURE FABRICATOR Visits 0 PT-OP-B Current Condition Start: 06/02/20 18:24 Freq: Status: Active Protocol: Document 06/03/20 09:46 LRN (Rec: 06/03/20 10:43 LRN [id number]) Current Condition History of Current Condition Onset Date 2.5 months Current Complaints L hip and leg pain, buttock to foot down lateral LE. History of Current Condition Pain onset insidious. States he has disc problems in the back and it was thought he had a pinched nerve. The injection provided relief for 1.5 days. Now he feels he is getting progressively worse. Getting up in the morning pain is 8-10/10 and lessens during the day to 3-4/10. After sitting for awhile (1 hr) after walking to the kitchen his pain increases. By bedtime pain is 6-10/10. Sleeps 4-5 hrs and then must get up due to the pain. Not able to take pain pills due to bowel problems. Takes Tylenol nightly and upon waking to help control the pain. Prior Treatments and Tests Dr. Bowen gave him a shot in the back and a week lateral to hip. Pain was a little better after the injections. Pain changed from 10 to 4. Future Testing and Treatments Planned Dr. Bowen follow up in July. Treatment Goals Patient/Caregiver Goals Pt goals: Walk dog with . Decrease pain to sleep 6-8 hrs peacefully without use of Tylenol. Decrease use of Tylenol for sleep. Prior Functional Status Baseline Function- ADL's Independent Baseline Function- Mobility Independent Baseline Function- Gait Pt able to walk without difficulty. Baseline Function- Other Not able to walk with to walk dog due to feeling of leg giving way. Able to sleep 6-8 hours per night. Current Functional Impairments (Reported) Functional Limitations- Mobility/Gait Pain with walking, not steady. Functional Limitations- Recreation/ Walked with to walk dog 1 Hobbies mile. 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 L knee has not been able to straighten for ~ 2 yrs. Current Dx (per history review ): Left herniated disc (L5-S1 ), Hip Osteoarthritis, Polymyalgia rheumatica, spondylosis of lumbar spine, and HTN. PT-OP-C Subjective Start: 06/02/20 18:24 Freq: Status: Active Protocol: Document 10/28/20 09:01 HH (Rec: 10/28/20 09:48 HH [id number]) OP-PT Subjective Patient Comments Patient Comments I do notice my R leg tends to drag occasionally. PT-OP-D Balance Start: 06/02/20 18:24 Freq: Status: Active Protocol: Document 06/03/20 09:46 LRN (Rec: 06/03/20 16:33 LRN [id number]) OP-PT Balance Assessment Standing Balance Static Standing Balance Ability Poor Dynamic Standing Balance Ability Fair Standing Balance Comments Pt has loss of balance on initial standing, using plinth to stabilized at legs and snowden as standing time increases. Pt did not tolerate static standing for > 5' before pain in LLE caused him to request sitting. Alba Fall Scale Copyright Permission PT-OP-E Functional Tests Start: 06/02/20 18:24 Freq: Status: Active Protocol: Document 10/26/20 08:52 HH (Rec: 10/26/20 09:44 HH [id number]) Functional Tests 6 Minute Walk Test Distance 986 Device Used no SPC Comments pt tripped twice his toe and almost fell and needed assistance to recover 30 Second Sit to Stand Test Score 7 Comments with arms pushed off from chair Timed Up and Go (TUG) Score 15s Comments pt slows down at turns d/t feeling unsteadiness. TUG Impairment Rating 40 to <60% Impaired (Score 14- 15) PT-OP-G Mobility & Gait Start: 06/02/20 18:24 Freq: Status: Active Protocol: Document 10/26/20 08:52 HH (Rec: 10/26/20 09:44 HH [id number]) Stair Climbing Evaluation Comments Stair Climbing Comments step over pattern for ascending with L rail step to pattern for descending with L rail PT-OP-H Neuro Start: 06/02/20 18:24 Freq: Status: Active Protocol: Document 06/03/20 09:46 LRN (Rec: 06/03/20 14:51 LRN [id number]) Sensation Evaluation Gross Sensation Gross Sensation Left LE Impaired Sensation Description Numbness,Pain Dermatome Impairments L4,L5,S1 Deep Tendon Reflex & Clonus Assessment Deep Tendon Reflex Left Achilles Deep Tendon Reflex 0 Absent Bilateral Patellar Deep Tendon Reflex 1+ Diminished PT-OP-J Posture/Palpation/Skin Start: 06/02/20 18:24 Freq: Status: Active Protocol: Document 06/03/20 09:46 LRN (Rec: 06/03/20 14:51 LRN [id number]) Posture Evaluation Position Standing Head/C-Spine Posture Forward Head L-Spine Posture Flattened Pelvis Posture Posterior Tilted Hip Posture (L) Flexed,(R) Flexed Palpation Assessment Location L TFL Palpation Location TFL Muscle belly Palpation Findings Tenderness L lateral hip Palpation Location Greater trochanter Palpation Findings Tenderness PT-OP-K Range of Motion Start: 06/02/20 18:24 Freq: Status: Active Protocol: Document 06/08/20 14:27 LRN (Rec: 06/08/20 15:30 LRN [id number]) Lumbar Spine Range of Motion Lumbar Spine Active Degrees Testing Position Standing Flexion 7 Extension 5 Lateral Flexion Left 10 Lateral Flexion Right 15 Comments Trunk flex: 5 hip flex Trunk ext: 5 hip ext PT-OP-L Special Tests Start: 06/02/20 18:24 Freq: Status: Active Protocol: Document 06/03/20 09:46 LRN (Rec: 06/03/20 14:51 LRN [id number]) Special Tests Lumbar Spine Special Tests Straight Leg Raise Test Results Neg bilaterally Comments Hamstring tightness Hip Special Tests AILEEN Test Results + R for anterior groin pain Comments Indicates 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 Indicates possible SIJ dysfunction. PT-OP-M Strength Start: 06/02/20 18:24 Freq: Status: Active Protocol: Document 08/30/20 09:54 HH (Rec: 08/30/20 10:30 [id number]) Hip Strength Hip Manual Muscle Testing Right Abduction 4- Good- PT-OP-Q Treatments Start: 06/02/20 18:24 Freq: Status: Active Protocol: Document 10/28/20 09:01 (Rec: 10/28/20 09:48 [id number]) Cardio Equipment Bicycle (Upright) Duration (Minutes) 6 Resistance 5 Therapeutic Exercises Standing Exercises calf raises Side bilateral Reps/Minutes 8 x2 Comments for HEP ankle board Side bilateral Equipment Used ankle board Comments DF and PF toe tap Side bilateral Equipment Used no UE support Reps/Minutes 20 x2 Gait Training Gait Activity ground level Comments 3 laps x 200 ft cues with heel strike, pt tripped with his R toe once Neuro Re-Education Treatment Balance Activities ground level Equipment 6 mins Comments static stance with AP weight shift, for HEP staggered stance Equipment 6 mins Comments AP weight shift, for HEP foam surface Surface blue foam Reps/Duration 5 mins Comments static stance with AP weight shift then lateral weight shift PT-OP-T Assessment and Plan Start: 06/02/20 18:24 Freq: Status: Active Protocol: Document 10/28/20 09:01 (Rec: 10/28/20 09:48 [id number]) Physical Therapy Assessment Goals 6MWT Impairment 6 MWT Maid Supervisor Goal (LTG) pt will reach 1000 ft for 6MWT without any toe drag/tripping episode LTG Duration 8 weeks 30 STS Impairment pt completed 7 times, 4 of them without armrest push offs . Short Term Goal (STG) 10/26/20 Pt is able to complete 7 times STS in 30 secs without using arms to push off. STG Duration 4 weeks Detention Goal (LTG) pt will be able to complete 10 times STS in 30 secs with arm push offs. LTG Duration 8 weeks Four Impairment Decreased L hip strength (AB 2 +/5, AD 1/5) Short Term Goal (STG) Pt will be able to move in bed with tolerable pain. (07/19/20: No change in L hip strength) 08/30 L hip abd strength 4-/5 STG Duration 07/16/20 (07/19/20: Moving in bed pain is 7/10) Maid Supervisor Goal (LTG) 11/9 Pt is able to ambulate stairs (step over 1 handrail) and level ground with confidence to return to dog walking with his . LTG Duration 10/01/20 Three Impairment Decreased balance, loss of balance on initial standing and after 5'. Short Term Goal (STG) Pt will be able to transfer sit to stand without fear of losing his balance, and decreased TUG score to 19 sec' s. (07/19/20: TUG score 20, improved from 24 initially. Pt is very aware and concerned with sit to stand loss of balance). STG Duration 07/16/20 (07/19/20: Improved) Detention Goal (LTG) 10/26/20 TUG avg= 15s in 3 trials d/t weakness 08/30 goal met Pt is able to complete TUG in avg. 10.6 s in 3 trials. Decrease TUG time to 13-14 sec 's with pt able to stand > 5' without fear of loss of balance. LTG Duration 10/01/20 Two Impairment LLE pain from hip to foot rated 0-9/10, disturbing sleep . Short Term Goal (STG) 10/26 pt does not need to take any tylenol anymore Pt will reduce his need for Tylenol and will improve standing tolerance such that he will be able to exercise through an entire PT session. (07/19/20: Taking Tylenol in AM & PM and only 15% in afternoon, previously took AM & PM, and 2x at noon). STG Duration 07/16/20 (07/19/20: Progressing, pt rarely taking Tylenol at noon) Maid Supervisor Goal (LTG) 08/30 Pt tool 2 tylenol for the entire week last week 08/30 goal met pt is able to sleep 6-8 hours in a daily basiss (07/19/20: Sleeps ~6 hrs, except last night had discomfort in the L hip and down lateral upper thigh). LTG Duration 10/01/20 (07/19/20: Sleeping ~6hrs with Tylenol) One Impairment Lacks appropriate self care HEP. Maid Supervisor Goal (LTG) Pt will be independent with a self care HEP. LTG Duration 10/01/20 (07/12/20: Progressing) Assessment Summary Assessment Assess pt's R ankle strength today and noticed his R DF is 4-/5, L= 5/5. Tx focused primarily on ankle strategy and ankle DF. Physical Therapy Plan Frequency and Duration Frequency of Treatment 2x/Week Duration of Treatment 8 weeks Plan of Care Start Date 10/26/20 Plan of Care End Date 12/25/20 Next Visit Focus/Plan Next Note Type Treatment Note Next Visit Plan balance focused, balacne, walking for endurance training , gait training
--- NOTE | 2020-11-02 09:47 | PT.OTN ---
Current Diagnoses Osteoarthritis of hip, unspecified (11/02/20) Other intervertebral disc displacement, lumbosacral region (11/02/20) Muscle weakness (generalized) (11/02/20) Unsteadiness on feet (11/02/20) Physical Therapy Treatment Note PT-OP-A Visit Information Start: 06/02/20 18:24 Freq: Status: Active Protocol: Document 11/02/20 08:56 HH (Rec: 11/02/20 09:47 HH [id number]) Out-Patient Physical Therapy Visit Information Visit Information Visit Type Treatment Note Visit Start Time 09:02 Visit Stop Time 09:45 Total Visit Minutes 43 Visit Number 28 Number of WRAPPER SELECTOR Visits 0 PT-OP-B Current Condition Start: 06/02/20 18:24 Freq: Status: Active Protocol: Document 06/03/20 09:46 LRN (Rec: 06/03/20 10:43 LRN [id number]) Current Condition History of Current Condition Onset Date 2.5 months Current Complaints L hip and leg pain, buttock to foot down lateral LE. History of Current Condition Pain onset insidious. States he has disc problems in the back and it was thought he had a pinched nerve. The injection provided relief for 1.5 days. Now he feels he is getting progressively worse. Getting up in the morning pain is 8-10/10 and lessens during the day to 3-4/10. After sitting for awhile (1 hr) after walking to the kitchen his pain increases. By bedtime pain is 6-10/10. Sleeps 4-5 hrs and then must get up due to the pain. Not able to take pain pills due to bowel problems. Takes Tylenol nightly and upon waking to help control the pain. Prior Treatments and Tests Dr. Bowen gave him a shot in the back and a week lateral to hip. Pain was a little better after the injections. Pain changed from 10 to 4. Future Testing and Treatments Planned Dr. Bowen follow up in July. Treatment Goals Patient/Caregiver Goals Pt goals: Walk dog with . Decrease pain to sleep 6-8 hrs peacefully without use of Tylenol. Decrease use of Tylenol for sleep. Prior Functional Status Baseline Function- ADL's Independent Baseline Function- Mobility Independent Baseline Function- Gait Pt able to walk without difficulty. Baseline Function- Other Not able to walk with to walk dog due to feeling of leg giving way. Able to sleep 6-8 hours per night. Current Functional Impairments (Reported) Functional Limitations- Mobility/Gait Pain with walking, not steady. Functional Limitations- Recreation/ Walked with to walk dog 1 Hobbies mile. 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 L knee has not been able to straighten for ~ 2 yrs. Current Dx (per history review ): Left herniated disc (L5-S1 ), Hip Osteoarthritis, Polymyalgia rheumatica, spondylosis of lumbar spine, and HTN. PT-OP-C Subjective Start: 06/02/20 18:24 Freq: Status: Active Protocol: Document 11/02/20 08:56 HH (Rec: 11/02/20 09:47 HH [id number]) OP-PT Subjective Patient Comments Patient Comments I started noticing my R foot doesnt supervisor picking crew as high as my L side. Ludmila been focusing heel strikes lately. Patient Reported Progress Improving PT-OP-D Balance Start: 06/02/20 18:24 Freq: Status: Active Protocol: Document 06/03/20 09:46 LRN (Rec: 06/03/20 16:33 LRN [id number]) OP-PT Balance Assessment Standing Balance Static Standing Balance Ability Poor Dynamic Standing Balance Ability Fair Standing Balance Comments Pt has loss of balance on initial standing, using plinth to stabilized at legs and snowden as standing time increases. Pt did not tolerate static standing for > 5' before pain in LLE caused him to request sitting. Alba Fall Scale Copyright Permission PT-OP-E Functional Tests Start: 06/02/20 18:24 Freq: Status: Active Protocol: Document 10/26/20 08:52 HH (Rec: 10/26/20 09:44 HH [id number]) Functional Tests 6 Minute Walk Test Distance 986 Device Used no SPC Comments pt tripped twice his toe and almost fell and needed assistance to recover 30 Second Sit to Stand Test Score 7 Comments with arms pushed off from chair Timed Up and Go (TUG) Score 15s Comments pt slows down at turns d/t feeling unsteadiness. TUG Impairment Rating 40 to <60% Impaired (Score 14- 15) PT-OP-G Mobility & Gait Start: 06/02/20 18:24 Freq: Status: Active Protocol: Document 10/26/20 08:52 HH (Rec: 10/26/20 09:44 HH [id number]) Stair Climbing Evaluation Comments Stair Climbing Comments step over pattern for ascending with L rail step to pattern for descending with L rail PT-OP-H Neuro Start: 06/02/20 18:24 Freq: Status: Active Protocol: Document 06/03/20 09:46 LRN (Rec: 06/03/20 14:51 LRN [id number]) Sensation Evaluation Gross Sensation Gross Sensation Left LE Impaired Sensation Description Numbness,Pain Dermatome Impairments L4,L5,S1 Deep Tendon Reflex & Clonus Assessment Deep Tendon Reflex Left Achilles Deep Tendon Reflex 0 Absent Bilateral Patellar Deep Tendon Reflex 1+ Diminished PT-OP-J Posture/Palpation/Skin Start: 06/02/20 18:24 Freq: Status: Active Protocol: Document 06/03/20 09:46 LRN (Rec: 06/03/20 14:51 LRN [id number]) Posture Evaluation Position Standing Head/C-Spine Posture Forward Head L-Spine Posture Flattened Pelvis Posture Posterior Tilted Hip Posture (L) Flexed,(R) Flexed Palpation Assessment Location L TFL Palpation Location TFL Muscle belly Palpation Findings Tenderness L lateral hip Palpation Location Greater trochanter Palpation Findings Tenderness PT-OP-K Range of Motion Start: 06/02/20 18:24 Freq: Status: Active Protocol: Document 06/08/20 14:27 LRN (Rec: 06/08/20 15:30 LRN [id number]) Lumbar Spine Range of Motion Lumbar Spine Active Degrees Testing Position Standing Flexion 7 Extension 5 Lateral Flexion Left 10 Lateral Flexion Right 15 Comments Trunk flex: 5 hip flex Trunk ext: 5 hip ext PT-OP-L Special Tests Start: 06/02/20 18:24 Freq: Status: Active Protocol: Document 06/03/20 09:46 LRN (Rec: 06/03/20 14:51 LRN [id number]) Special Tests Lumbar Spine Special Tests Straight Leg Raise Test Results Neg bilaterally Comments Hamstring tightness Hip Special Tests AILEEN Test Results + R for anterior groin pain Comments Indicates 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 Indicates possible SIJ dysfunction. PT-OP-M Strength Start: 06/02/20 18:24 Freq: Status: Active Protocol: Document 08/30/20 09:54 HH (Rec: 08/30/20 10:30 HH [id number]) Hip Strength Hip Manual Muscle Testing Right Abduction 4- Good- PT-OP-Q Treatments Start: 06/02/20 18:24 Freq: Status: Active Protocol: Document 11/02/20 08:56 HH (Rec: 11/02/20 09:47 HH [id number]) Cardio Equipment Bicycle (Upright) Duration (Minutes) 6 Resistance 5 Therapeutic Exercises Sitting Exercises seated ankle DF Side bilateral Equipment Used half foam roller Reps/Minutes 6 mins Comments pt noted R side is weaker Standing Exercises calf raises Side bilateral Reps/Minutes 8 x2 Comments for HEP ankle board Side bilateral Equipment Used ankle board Comments DF and PF toe tap Side bilateral Equipment Used no UE support Reps/Minutes 20 x2 Gait Training Gait Activity swing phase Description swing phase of R side Device Used with lowered francis Surface ground level Comments cues on R heel strike and swing phase with R DF ground level Comments 3 laps x 200 ft cues with heel strike, pt minimally tripped with his R toe once. Improved heel strike noted. Neuro Re-Education Treatment Balance Activities staggered stance Equipment 4 mins Comments AP weight shift, foam surface Surface blue foam Reps/Duration 5 mins Comments static stance with AP weight shift then EC for 20 sec PT-OP-T Assessment and Plan Start: 06/02/20 18:24 Freq: Status: Active Protocol: Document 11/02/20 08:56 (Rec: 11/02/20 09:47 [id number]) Physical Therapy Assessment Goals 6MWT Impairment 6 MWT Sole Tier Goal (LTG) pt will reach 1000 ft for 6MWT without any toe drag/tripping episode LTG Duration 8 weeks 30 STS Impairment pt completed 7 times, 4 of them without armrest push offs . Short Term Goal (STG) 10/26/20 Pt is able to complete 7 times STS in 30 secs without using arms to push off. STG Duration 4 weeks Sole Tier Goal (LTG) pt will be able to complete 10 times STS in 30 secs with arm push offs. LTG Duration 8 weeks Four Impairment Decreased L hip strength (AB 2 +/5, AD 1/5) Short Term Goal (STG) Pt will be able to move in bed with tolerable pain. (07/19/20: No change in L hip strength) 08/30 L hip abd strength 4-/5 STG Duration 07/16/20 (07/19/20: Moving in bed pain is 7/10) Prison Goal (LTG) 08/30 Pt is able to ambulate stairs (step over 1 handrail) and level ground with confidence to return to dog walking with his . LTG Duration 10/01/20 Three Impairment Decreased balance, loss of balance on initial standing and after 5'. Short Term Goal (STG) Pt will be able to transfer sit to stand without fear of losing his balance, and decreased TUG score to 19 sec' s. (07/19/20: TUG score 20, improved from 24 initially. Pt is very aware and concerned with sit to stand loss of balance). STG Duration 07/16/20 (07/19/20: Improved) Sole Tier Goal (LTG) 10/26/20 TUG avg= 15s in 3 trials d/t weakness 08/30 goal met Pt is able to complete TUG in avg. 10.6 s in 3 trials. Decrease TUG time to 13-14 sec 's with pt able to stand > 5' without fear of loss of balance. LTG Duration 10/01/20 Two Impairment LLE pain from hip to foot rated 0-9/10, disturbing sleep . Short Term Goal (STG) 10/26 pt does not need to take any tylenol anymore Pt will reduce his need for Tylenol and will improve standing tolerance such that he will be able to exercise through an entire PT session. (07/19/20: Taking Tylenol in AM & PM and only 15% in afternoon, previously took AM & PM, and 2x at noon). STG Duration 07/16/20 (07/19/20: Progressing, pt rarely taking Tylenol at noon) Sole Tier Goal (LTG) 08/30 Pt tool 2 tylenol for the entire week last week 08/30 goal met pt is able to sleep 6-8 hours in a daily basiss (07/19/20: Sleeps ~6 hrs, except last night had discomfort in the L hip and down lateral upper thigh). LTG Duration 10/01/20 (07/19/20: Sleeping ~6hrs with Tylenol) One Impairment Lacks appropriate self care HEP. Sole Tier Goal (LTG) Pt will be independent with a self care HEP. LTG Duration 10/01/20 (07/12/20: Progressing) Assessment Summary Assessment Tx focused on ankle DF, ankle strategy, gait training. Pt has shown slight improved heel strike with his R side. But he did minimally tripped with his R toes while 3 laps of walking. Physical Therapy Plan Frequency and Duration Frequency of Treatment 2x/Week Duration of Treatment 8 weeks Plan of Care Start Date 10/26/20 Plan of Care End Date 12/25/20 Next Visit Focus/Plan Next Note Type Treatment Note Next Visit Plan balance focused, balacne, walking for endurance training , gait training
--- NOTE | 2020-11-04 09:56 | PT.OTN ---
Current Diagnoses Osteoarthritis of hip, unspecified (11/04/20) Other intervertebral disc displacement, lumbosacral region (11/04/20) Muscle weakness (generalized) (11/04/20) Unsteadiness on feet (11/04/20) Physical Therapy Treatment Note PT-OP-A Visit Information Start: 06/02/20 18:24 Freq: Status: Active Protocol: Document 11/04/20 08:57 HH (Rec: 11/04/20 09:56 HH [id number]) Out-Patient Physical Therapy Visit Information Visit Information Visit Type Treatment Note Visit Start Time 09:00 Visit Stop Time 09:45 Total Visit Minutes 45 Visit Number 29 Number of PHOTOGRAMMETRIC STEREO COMPILER Visits 0 PT-OP-B Current Condition Start: 06/02/20 18:24 Freq: Status: Active Protocol: Document 06/03/20 09:46 LRN (Rec: 06/03/20 10:43 LRN [id number]) Current Condition History of Current Condition Onset Date 2.5 months Current Complaints L hip and leg pain, buttock to foot down lateral LE. History of Current Condition Pain onset insidious. States he has disc problems in the back and it was thought he had a pinched nerve. The injection provided relief for 1.5 days. Now he feels he is getting progressively worse. Getting up in the morning pain is 8-10/10 and lessens during the day to 3-4/10. After sitting for awhile (1 hr) after walking to the kitchen his pain increases. By bedtime pain is 6-10/10. Sleeps 4-5 hrs and then must get up due to the pain. Not able to take pain pills due to bowel problems. Takes Tylenol nightly and upon waking to help control the pain. Prior Treatments and Tests Dr. Bowen gave him a shot in the back and a week lateral to hip. Pain was a little better after the injections. Pain changed from 10 to 4. Future Testing and Treatments Planned Dr. Bowen follow up in July. Treatment Goals Patient/Caregiver Goals Pt goals: Walk dog with . Decrease pain to sleep 6-8 hrs peacefully without use of Tylenol. Decrease use of Tylenol for sleep. Prior Functional Status Baseline Function- ADL's Independent Baseline Function- Mobility Independent Baseline Function- Gait Pt able to walk without difficulty. Baseline Function- Other Not able to walk with to walk dog due to feeling of leg giving way. Able to sleep 6-8 hours per night. Current Functional Impairments (Reported) Functional Limitations- Mobility/Gait Pain with walking, not steady. Functional Limitations- Recreation/ Walked with to walk dog 1 Hobbies mile. 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 L knee has not been able to straighten for ~ 2 yrs. Current Dx (per history review ): Left herniated disc (L5-S1 ), Hip Osteoarthritis, Polymyalgia rheumatica, spondylosis of lumbar spine, and HTN. PT-OP-C Subjective Start: 06/02/20 18:24 Freq: Status: Active Protocol: Document 11/04/20 08:57 HH (Rec: 11/04/20 09:56 HH [id number]) OP-PT Subjective Patient Comments Patient Comments Im doing pretty well and im very cautious of my walking. I didnt get sore from last time Patient Reported Progress Same PT-OP-D Balance Start: 06/02/20 18:24 Freq: Status: Active Protocol: Document 06/03/20 09:46 LRN (Rec: 06/03/20 16:33 LRN [id number]) OP-PT Balance Assessment Standing Balance Static Standing Balance Ability Poor Dynamic Standing Balance Ability Fair Standing Balance Comments Pt has loss of balance on initial standing, using plinth to stabilized at legs and snowden as standing time increases. Pt did not tolerate static standing for > 5' before pain in LLE caused him to request sitting. Alba Fall Scale Copyright Permission PT-OP-E Functional Tests Start: 06/02/20 18:24 Freq: Status: Active Protocol: Document 10/26/20 08:52 HH (Rec: 10/26/20 09:44 HH [id number]) Functional Tests 6 Minute Walk Test Distance 986 Device Used no SPC Comments pt tripped twice his toe and almost fell and needed assistance to recover 30 Second Sit to Stand Test Score 7 Comments with arms pushed off from chair Timed Up and Go (TUG) Score 15s Comments pt slows down at turns d/t feeling unsteadiness. TUG Impairment Rating 40 to <60% Impaired (Score 14- 15) PT-OP-G Mobility & Gait Start: 06/02/20 18:24 Freq: Status: Active Protocol: Document 10/26/20 08:52 HH (Rec: 10/26/20 09:44 HH [id number]) Stair Climbing Evaluation Comments Stair Climbing Comments step over pattern for ascending with L rail step to pattern for descending with L rail PT-OP-H Neuro Start: 06/02/20 18:24 Freq: Status: Active Protocol: Document 06/03/20 09:46 LRN (Rec: 06/03/20 14:51 LRN [id number]) Sensation Evaluation Gross Sensation Gross Sensation Left LE Impaired Sensation Description Numbness,Pain Dermatome Impairments L4,L5,S1 Deep Tendon Reflex & Clonus Assessment Deep Tendon Reflex Left Achilles Deep Tendon Reflex 0 Absent Bilateral Patellar Deep Tendon Reflex 1+ Diminished PT-OP-J Posture/Palpation/Skin Start: 06/02/20 18:24 Freq: Status: Active Protocol: Document 06/03/20 09:46 LRN (Rec: 06/03/20 14:51 LRN [id number]) Posture Evaluation Position Standing Head/C-Spine Posture Forward Head L-Spine Posture Flattened Pelvis Posture Posterior Tilted Hip Posture (L) Flexed,(R) Flexed Palpation Assessment Location L TFL Palpation Location TFL Muscle belly Palpation Findings Tenderness L lateral hip Palpation Location Greater trochanter Palpation Findings Tenderness PT-OP-K Range of Motion Start: 06/02/20 18:24 Freq: Status: Active Protocol: Document 06/08/20 14:27 LRN (Rec: 06/08/20 15:30 LRN [id number]) Lumbar Spine Range of Motion Lumbar Spine Active Degrees Testing Position Standing Flexion 7 Extension 5 Lateral Flexion Left 10 Lateral Flexion Right 15 Comments Trunk flex: 5 hip flex Trunk ext: 5 hip ext PT-OP-L Special Tests Start: 06/02/20 18:24 Freq: Status: Active Protocol: Document 06/03/20 09:46 LRN (Rec: 06/03/20 14:51 LRN [id number]) Special Tests Lumbar Spine Special Tests Straight Leg Raise Test Results Neg bilaterally Comments Hamstring tightness Hip Special Tests AILEEN Test Results + R for anterior groin pain Comments Indicates 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 Indicates possible SIJ dysfunction. PT-OP-M Strength Start: 06/02/20 18:24 Freq: Status: Active Protocol: Document 08/30/20 09:54 (Rec: 08/30/20 10:30 HH [id number]) Hip Strength Hip Manual Muscle Testing Right Abduction 4- Good- PT-OP-Q Treatments Start: 06/02/20 18:24 Freq: Status: Active Protocol: Document 11/04/20 08:57 (Rec: 11/04/20 09:56 [id number]) Cardio Equipment Bicycle (Upright) Duration (Minutes) 7 Resistance 5 Gym Equipment Shuttle Recovery uni squat Resistance #50 Shuttle Recovery Platform Stable Reps/Time 8x3 Therapeutic Exercises Sitting Exercises seated ankle DF Side bilateral Equipment Used half foam roller Reps/Minutes 6 mins Comments pt noted R side is weaker Standing Exercises calf raises Side bilateral Reps/Minutes 8 x2 Comments for HEP ankle board Side bilateral Equipment Used ankle board Comments DF and PF toe tap Side bilateral Equipment Used no UE support Reps/Minutes 20 x2 Gait Training Gait Activity heel toe gait Surface ground level Distance/Duration 10 ft x 6 Treatment Focus heel toe gait Comments with 1 UE finger touch support on grab bar swing phase Description swing phase of R side Device Used with lowered francis Surface ground level Comments cues on R heel strike and swing phase with R DF ground level Description w/o shoes Surface ground level Distance/Duration 200 ft x 3 Comments 3 laps x 200 ft pt has improved gait speed and WFL feet clearance. No toe tripping noted. PT-OP-T Assessment and Plan Start: 06/02/20 18:24 Freq: Status: Active Protocol: Document 11/04/20 08:57 (Rec: 11/04/20 09:56 [id number]) Physical Therapy Assessment Goals 6MWT Impairment 6 MWT Casting Wheel Operator Goal (LTG) pt will reach 1000 ft for 6MWT without any toe drag/tripping episode LTG Duration 8 weeks 30 STS Impairment pt completed 7 times, 4 of them without armrest push offs . Short Term Goal (STG) 10/26/20 Pt is able to complete 7 times STS in 30 secs without using arms to push off. STG Duration 4 weeks Residential Goal (LTG) pt will be able to complete 10 times STS in 30 secs with arm push offs. LTG Duration 8 weeks Four Impairment Decreased L hip strength (AB 2 +/5, AD 1/5) Short Term Goal (STG) Pt will be able to move in bed with tolerable pain. (07/19/20: No change in L hip strength) 08/30 L hip abd strength 4-/5 STG Duration 07/16/20 (07/19/20: Moving in bed pain is 7/10) Residential Goal (LTG) 08/30 Pt is able to ambulate stairs (step over 1 handrail) and level ground with confidence to return to dog walking with his . LTG Duration 10/01/20 Three Impairment Decreased balance, loss of balance on initial standing and after 5'. Short Term Goal (STG) Pt will be able to transfer sit to stand without fear of losing his balance, and decreased TUG score to 19 sec' s. (07/19/20: TUG score 20, improved from 24 initially. Pt is very aware and concerned with sit to stand loss of balance). STG Duration 07/16/20 (07/19/20: Improved) Casting Wheel Operator Goal (LTG) 10/26/20 TUG avg= 15s in 3 trials d/t weakness 08/30 goal met Pt is able to complete TUG in avg. 10.6 s in 3 trials. Decrease TUG time to 13-14 sec 's with pt able to stand > 5' without fear of loss of balance. LTG Duration 10/01/20 Two Impairment LLE pain from hip to foot rated 0-9/10, disturbing sleep . Short Term Goal (STG) 10/26 pt does not need to take any tylenol anymore Pt will reduce his need for Tylenol and will improve standing tolerance such that he will be able to exercise through an entire PT session. (07/19/20: Taking Tylenol in AM & PM and only 15% in afternoon, previously took AM & PM, and 2x at noon). STG Duration 07/16/20 (07/19/20: Progressing, pt rarely taking Tylenol at noon) Casting Wheel Operator Goal (LTG) 08/30 Pt tool 2 tylenol for the entire week last week 08/30 goal met pt is able to sleep 6-8 hours in a daily basiss (07/19/20: Sleeps ~6 hrs, except last night had discomfort in the L hip and down lateral upper thigh). LTG Duration 10/01/20 (07/19/20: Sleeping ~6hrs with Tylenol) One Impairment Lacks appropriate self care HEP. Residential Goal (LTG) Pt will be independent with a self care HEP. LTG Duration 10/01/20 (07/12/20: Progressing) Assessment Summary Assessment tx session without shoes today . Pt showed improved ankle strrategy and ankle DF engagement for balance ex. He also able to have normal feet clearance and improved gait speed witohut shoes today. Spent time recommending him to acquire proper shoes fit to avoid toe drag Physical Therapy Plan Frequency and Duration Frequency of Treatment 2x/Week Duration of Treatment 8 weeks Plan of Care Start Date 10/26/20 Plan of Care End Date 12/25/20 Next Visit Focus/Plan Next Note Type Treatment Note Next Visit Plan balance focused, ronda, walking for endurance training , gait training
--- NOTE | 2020-11-09 09:47 | PT.OTN ---
Current Diagnoses Osteoarthritis of hip, unspecified (11/09/20) Other intervertebral disc displacement, lumbosacral region (11/09/20) Muscle weakness (generalized) (11/09/20) Unsteadiness on feet (11/09/20) Physical Therapy Treatment Note PT-OP-A Visit Information Start: 06/02/20 18:24 Freq: Status: Active Protocol: Document 11/09/20 08:59 HH (Rec: 11/09/20 09:46 HH [id number]) Out-Patient Physical Therapy Visit Information Visit Information Visit Type Progress Note Visit Start Time 09:03 Visit Stop Time 09:45 Total Visit Minutes 42 Visit Number 30 Number of ON AIR ANNOUNCER Visits 0 PT-OP-B Current Condition Start: 06/02/20 18:24 Freq: Status: Active Protocol: Document 06/03/20 09:46 LRN (Rec: 06/03/20 10:43 LRN [id number]) Current Condition History of Current Condition Onset Date 2.5 months Current Complaints L hip and leg pain, buttock to foot down lateral LE. History of Current Condition Pain onset insidious. States he has disc problems in the back and it was thought he had a pinched nerve. The injection provided relief for 1.5 days. Now he feels he is getting progressively worse. Getting up in the morning pain is 8-10/10 and lessens during the day to 3-4/10. After sitting for awhile (1 hr) after walking to the kitchen his pain increases. By bedtime pain is 6-10/10. Sleeps 4-5 hrs and then must get up due to the pain. Not able to take pain pills due to bowel problems. Takes Tylenol nightly and upon waking to help control the pain. Prior Treatments and Tests Dr. Bowen gave him a shot in the back and a week lateral to hip. Pain was a little better after the injections. Pain changed from 10 to 4. Future Testing and Treatments Planned Dr. Bowen follow up in July. Treatment Goals Patient/Caregiver Goals Pt goals: Walk dog with . Decrease pain to sleep 6-8 hrs peacefully without use of Tylenol. Decrease use of Tylenol for sleep. Prior Functional Status Baseline Function- ADL's Independent Baseline Function- Mobility Independent Baseline Function- Gait Pt able to walk without difficulty. Baseline Function- Other Not able to walk with to walk dog due to feeling of leg giving way. Able to sleep 6-8 hours per night. Current Functional Impairments (Reported) Functional Limitations- Mobility/Gait Pain with walking, not steady. Functional Limitations- Recreation/ Walked with to walk dog 1 Hobbies mile. 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 L knee has not been able to straighten for ~ 2 yrs. Current Dx (per history review ): Left herniated disc (L5-S1 ), Hip Osteoarthritis, Polymyalgia rheumatica, spondylosis of lumbar spine, and HTN. PT-OP-C Subjective Start: 06/02/20 18:24 Freq: Status: Active Protocol: Document 11/09/20 08:59 HH (Rec: 11/09/20 09:46 HH [id number]) OP-PT Subjective Patient Comments Patient Comments I actually feel safer to walk without shoes because i could feel my heels strike first Patient Reported Progress Improving PT-OP-D Balance Start: 06/02/20 18:24 Freq: Status: Active Protocol: Document 06/03/20 09:46 LRN (Rec: 06/03/20 16:33 LRN [id number]) OP-PT Balance Assessment Standing Balance Static Standing Balance Ability Poor Dynamic Standing Balance Ability Fair Standing Balance Comments Pt has loss of balance on initial standing, using plinth to stabilized at legs and snowden as standing time increases. Pt did not tolerate static standing for > 5' before pain in LLE caused him to request sitting. Alba Fall Scale Copyright Permission PT-OP-E Functional Tests Start: 06/02/20 18:24 Freq: Status: Active Protocol: Document 10/26/20 08:52 HH (Rec: 10/26/20 09:44 HH [id number]) Functional Tests 6 Minute Walk Test Distance 986 Device Used no SPC Comments pt tripped twice his toe and almost fell and needed assistance to recover 30 Second Sit to Stand Test Score 7 Comments with arms pushed off from chair Timed Up and Go (TUG) Score 15s Comments pt slows down at turns d/t feeling unsteadiness. TUG Impairment Rating 40 to <60% Impaired (Score 14- 15) PT-OP-G Mobility & Gait Start: 06/02/20 18:24 Freq: Status: Active Protocol: Document 10/26/20 08:52 HH (Rec: 10/26/20 09:44 HH [id number]) Stair Climbing Evaluation Comments Stair Climbing Comments step over pattern for ascending with L rail step to pattern for descending with L rail PT-OP-H Neuro Start: 06/02/20 18:24 Freq: Status: Active Protocol: Document 06/03/20 09:46 LRN (Rec: 06/03/20 14:51 LRN [id number]) Sensation Evaluation Gross Sensation Gross Sensation Left LE Impaired Sensation Description Numbness,Pain Dermatome Impairments L4,L5,S1 Deep Tendon Reflex & Clonus Assessment Deep Tendon Reflex Left Achilles Deep Tendon Reflex 0 Absent Bilateral Patellar Deep Tendon Reflex 1+ Diminished PT-OP-J Posture/Palpation/Skin Start: 06/02/20 18:24 Freq: Status: Active Protocol: Document 06/03/20 09:46 LRN (Rec: 06/03/20 14:51 LRN [id number]) Posture Evaluation Position Standing Head/C-Spine Posture Forward Head L-Spine Posture Flattened Pelvis Posture Posterior Tilted Hip Posture (L) Flexed,(R) Flexed Palpation Assessment Location L TFL Palpation Location TFL Muscle belly Palpation Findings Tenderness L lateral hip Palpation Location Greater trochanter Palpation Findings Tenderness PT-OP-K Range of Motion Start: 06/02/20 18:24 Freq: Status: Active Protocol: Document 06/08/20 14:27 LRN (Rec: 06/08/20 15:30 LRN [id number]) Lumbar Spine Range of Motion Lumbar Spine Active Degrees Testing Position Standing Flexion 7 Extension 5 Lateral Flexion Left 10 Lateral Flexion Right 15 Comments Trunk flex: 5 hip flex Trunk ext: 5 hip ext PT-OP-L Special Tests Start: 06/02/20 18:24 Freq: Status: Active Protocol: Document 06/03/20 09:46 LRN (Rec: 06/03/20 14:51 LRN [id number]) Special Tests Lumbar Spine Special Tests Straight Leg Raise Test Results Neg bilaterally Comments Hamstring tightness Hip Special Tests AILEEN Test Results + R for anterior groin pain Comments Indicates 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 Indicates possible SIJ dysfunction. PT-OP-M Strength Start: 08/12/20 18:24 Freq: Status: Active Protocol: Document 08/30/20 09:54 HH (Rec: 08/30/20 10:30 HH [id number]) Hip Strength Hip Manual Muscle Testing Right Abduction 4- Good- PT-OP-Q Treatments Start: 06/02/20 18:24 Freq: Status: Active Protocol: Document 11/09/20 08:59 HH (Rec: 11/09/20 09:46 HH [id number]) Cardio Equipment Bicycle (Upright) Duration (Minutes) 7 Resistance 5 Therapeutic Exercises Sitting Exercises seated ankle DF Side bilateral Equipment Used half foam roller Reps/Minutes 6 mins Comments pt noted R side is weaker Standing Exercises calf raises Side bilateral Reps/Minutes 8 x2 Comments for HEP ankle board Side bilateral Equipment Used ankle board Comments DF and PF Neuro Re-Education Treatment Balance Activities foam surface Surface blue foam Reps/Duration 5 mins Comments static stance with AP weight shift then EC for 20 sec PT-OP-T Assessment and Plan Start: 06/02/20 18:24 Freq: Status: Active Protocol: Document 11/09/20 08:59 HH (Rec: 11/09/20 09:46 [id number]) Physical Therapy Assessment Goals ankle strength Impairment R ankle DF =4-/5 Short Term Goal (STG) pt will reach 4+/5 for r ankle DF STG Duration 4 weeks Halfway Goal (LTG) pt will reach 5/5 for R ankle DF pt will amb without toe drag to prevent fall risks. 6MWT Impairment 6 MWT Short Term Goal (STG) 11/09/20: 855 ft , break at 3rd min for 40 seconds. Toe dragged once. 6MWT Furniture Upholsterer Apprentice Goal (LTG) pt will reach 1000 ft for 6MWT without any toe drag/tripping episode LTG Duration 8 weeks 30 STS Impairment pt completed 7 times, 4 of them without armrest push offs . Short Term Goal (STG) 10/26/20 Pt is able to complete 7 times STS in 30 secs without using arms to push off. STG Duration 4 weeks Halfway Goal (LTG) 11/09/20 pt completed STS 7 times w/o armrests but with trunk lean pt will be able to complete 10 times STS in 30 secs with arm push offs. LTG Duration 8 weeks Four Impairment Decreased L hip strength (AB 2 +/5, AD 1/5) Short Term Goal (STG) Pt will be able to move in bed with tolerable pain. (07/19/20: No change in L hip strength) 08/30 L hip abd strength 4-/5 STG Duration 07/16/20 (07/19/20: Moving in bed pain is 7/10) Halfway Goal (LTG) 08/30 Pt is able to ambulate stairs (step over 1 handrail) and level ground with confidence to return to dog walking with his . LTG Duration 10/01/20 Three Impairment Decreased balance, loss of balance on initial standing and after 5'. Short Term Goal (STG) Pt will be able to transfer sit to stand without fear of losing his balance, and decreased TUG score to 19 sec' s. (07/19/20: TUG score 20, improved from 24 initially. Pt is very aware and concerned with sit to stand loss of balance). STG Duration 07/16/20 (07/19/20: Improved) Furniture Upholsterer Apprentice Goal (LTG) 10/26/20 TUG avg= 15s in 3 trials d/t weakness 08/30 goal met Pt is able to complete TUG in avg. 10.6 s in 3 trials. Decrease TUG time to 13-14 sec 's with pt able to stand > 5' without fear of loss of balance. LTG Duration 10/01/20 Two Impairment LLE pain from hip to foot rated 0-9/10, disturbing sleep . Short Term Goal (STG) 10/26 pt does not need to take any tylenol anymore Pt will reduce his need for Tylenol and will improve standing tolerance such that he will be able to exercise through an entire PT session. (07/19/20: Taking Tylenol in AM & PM and only 15% in afternoon, previously took AM & PM, and 2x at noon). STG Duration 07/16/20 (07/19/20: Progressing, pt rarely taking Tylenol at noon) Halfway Goal (LTG) 08/30 Pt tool 2 tylenol for the entire week last week 08/30 goal met pt is able to sleep 6-8 hours in a daily basiss (07/19/20: Sleeps ~6 hrs, except last night had discomfort in the L hip and down lateral upper thigh). LTG Duration 10/01/20 (07/19/20: Sleeping ~6hrs with Tylenol) One Impairment Lacks appropriate self care HEP. Halfway Goal (LTG) Pt will be independent with a self care HEP. LTG Duration 10/01/20 (07/12/20: Progressing) Assessment Summary Assessment DE today. Pt shows improved ankle DF strength, gait mechanics with only 1 toe drag epidsode during 6 MWT. His 6MWT = 855ft without 1 break. 30 STS= 7 times without armrests but trunk lean. Pt will cont benefit from skilled therapy to strength his R DF, gait mechanics to increase his mobility and prevent fall risks. Physical Therapy Plan Frequency and Duration Frequency of Treatment 2x/Week Duration of Treatment 8 weeks Plan of Care Start Date 10/26/20 Plan of Care End Date 12/25/20 Next Visit Focus/Plan Next Note Type Treatment Note Next Visit Plan balance focused, balacne, walking for endurance training , gait training
--- NOTE | 2020-11-16 09:41 | PT.OTN ---
Current Diagnoses Osteoarthritis of hip, unspecified (11/16/20) Other intervertebral disc displacement, lumbosacral region (11/16/20) Muscle weakness (generalized) (11/16/20) Unsteadiness on feet (11/16/20) Physical Therapy Treatment Note PT-OP-A Visit Information Start: 06/02/20 18:24 Freq: Status: Active Protocol: Document 11/16/20 08:49 HH (Rec: 11/16/20 09:40 HH [id number]) Out-Patient Physical Therapy Visit Information Visit Information Visit Type Treatment Note Visit Start Time 08:58 Visit Stop Time 09:43 Total Visit Minutes 45 Visit Number 32 Number of LINE LEADER Visits 0 PT-OP-B Current Condition Start: 06/02/20 18:24 Freq: Status: Active Protocol: Document 06/03/20 09:46 LRN (Rec: 06/03/20 10:43 LRN [id number]) Current Condition History of Current Condition Onset Date 2.5 months Current Complaints L hip and leg pain, buttock to foot down lateral LE. History of Current Condition Pain onset insidious. States he has disc problems in the back and it was thought he had a pinched nerve. The injection provided relief for 1.5 days. Now he feels he is getting progressively worse. Getting up in the morning pain is 8-10/10 and lessens during the day to 3-4/10. After sitting for awhile (1 hr) after walking to the kitchen his pain increases. By bedtime pain is 6-10/10. Sleeps 4-5 hrs and then must get up due to the pain. Not able to take pain pills due to bowel problems. Takes Tylenol nightly and upon waking to help control the pain. Prior Treatments and Tests Dr. Bowen gave him a shot in the back and a week lateral to hip. Pain was a little better after the injections. Pain changed from 10 to 4. Future Testing and Treatments Planned Dr. Bowen follow up in July. Treatment Goals Patient/Caregiver Goals Pt goals: Walk dog with . Decrease pain to sleep 6-8 hrs peacefully without use of Tylenol. Decrease use of Tylenol for sleep. Prior Functional Status Baseline Function- ADL's Independent Baseline Function- Mobility Independent Baseline Function- Gait Pt able to walk without difficulty. Baseline Function- Other Not able to walk with to walk dog due to feeling of leg giving way. Able to sleep 6-8 hours per night. Current Functional Impairments (Reported) Functional Limitations- Mobility/Gait Pain with walking, not steady. Functional Limitations- Recreation/ Walked with to walk dog 1 Hobbies mile. 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 L knee has not been able to straighten for ~ 2 yrs. Current Dx (per history review ): Left herniated disc (L5-S1 ), Hip Osteoarthritis, Polymyalgia rheumatica, spondylosis of lumbar spine, and HTN. PT-OP-C Subjective Start: 06/02/20 18:24 Freq: Status: Active Protocol: Document 11/16/20 08:49 HH (Rec: 11/16/20 09:40 HH [id number]) OP-PT Subjective Patient Comments Patient Comments Im doing okay so far. I had an episode that my R ankle went paralyzed when i was sleeping but it went away after. Patient Reported Progress Improving PT-OP-D Balance Start: 06/02/20 18:24 Freq: Status: Active Protocol: Document 06/03/20 09:46 LRN (Rec: 06/03/20 16:33 LRN [id number]) OP-PT Balance Assessment Standing Balance Static Standing Balance Ability Poor Dynamic Standing Balance Ability Fair Standing Balance Comments Pt has loss of balance on initial standing, using plinth to stabilized at legs and snowden as standing time increases. Pt did not tolerate static standing for > 5' before pain in LLE caused him to request sitting. Alba Fall Scale Copyright Permission PT-OP-E Functional Tests Start: 06/02/20 18:24 Freq: Status: Active Protocol: Document 10/26/20 08:52 HH (Rec: 10/26/20 09:44 HH [id number]) Functional Tests 6 Minute Walk Test Distance 986 Device Used no SPC Comments pt tripped twice his toe and almost fell and needed assistance to recover 30 Second Sit to Stand Test Score 7 Comments with arms pushed off from chair Timed Up and Go (TUG) Score 15s Comments pt slows down at turns d/t feeling unsteadiness. TUG Impairment Rating 40 to <60% Impaired (Score 14- 15) PT-OP-G Mobility & Gait Start: 06/02/20 18:24 Freq: Status: Active Protocol: Document 10/26/20 08:52 HH (Rec: 10/26/20 09:44 HH [id number]) Stair Climbing Evaluation Comments Stair Climbing Comments step over pattern for ascending with L rail step to pattern for descending with L rail PT-OP-H Neuro Start: 06/02/20 18:24 Freq: Status: Active Protocol: Document 06/03/20 09:46 LRN (Rec: 06/03/20 14:51 LRN [id number]) Sensation Evaluation Gross Sensation Gross Sensation Left LE Impaired Sensation Description Numbness,Pain Dermatome Impairments L4,L5,S1 Deep Tendon Reflex & Clonus Assessment Deep Tendon Reflex Left Achilles Deep Tendon Reflex 0 Absent Bilateral Patellar Deep Tendon Reflex 1+ Diminished PT-OP-J Posture/Palpation/Skin Start: 06/02/20 18:24 Freq: Status: Active Protocol: Document 06/03/20 09:46 LRN (Rec: 06/03/20 14:51 LRN [id number]) Posture Evaluation Position Standing Head/C-Spine Posture Forward Head L-Spine Posture Flattened Pelvis Posture Posterior Tilted Hip Posture (L) Flexed,(R) Flexed Palpation Assessment Location L TFL Palpation Location TFL Muscle belly Palpation Findings Tenderness L lateral hip Palpation Location Greater trochanter Palpation Findings Tenderness PT-OP-K Range of Motion Start: 06/02/20 18:24 Freq: Status: Active Protocol: Document 06/08/20 14:27 LRN (Rec: 06/08/20 15:30 LRN [id number]) Lumbar Spine Range of Motion Lumbar Spine Active Degrees Testing Position Standing Flexion 7 Extension 5 Lateral Flexion Left 10 Lateral Flexion Right 15 Comments Trunk flex: 5 hip flex Trunk ext: 5 hip ext PT-OP-L Special Tests Start: 06/02/20 18:24 Freq: Status: Active Protocol: Document 06/03/20 09:46 LRN (Rec: 06/03/20 14:51 LRN [id number]) Special Tests Lumbar Spine Special Tests Straight Leg Raise Test Results Neg bilaterally Comments Hamstring tightness Hip Special Tests AILEEN Test Results + R for anterior groin pain Comments Indicates 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 Indicates possible SIJ dysfunction. PT-OP-M Strength Start: 06/02/20 18:24 Freq: Status: Active Protocol: Document 08/30/20 09:54 HH (Rec: 08/30/20 10:30 HH [id number]) Hip Strength Hip Manual Muscle Testing Right Abduction 4- Good- PT-OP-Q Treatments Start: 06/02/20 18:24 Freq: Status: Active Protocol: Document 11/16/20 08:49 HH (Rec: 11/16/20 09:40 HH [id number]) Cardio Equipment Bicycle (Upright) Duration (Minutes) 7 Resistance 5 Therapeutic Exercises Standing Exercises calf raises Side bilateral Reps/Minutes 8 x2 Comments for HEP ankle board Side bilateral Equipment Used ankle board Comments DF and PF toe tap Side bilateral Equipment Used no UE support Reps/Minutes 20 x2 step up Standing Exercise Name step to pattern Equipment Used 6 step Reps/Minutes 10 x3 Sit to Stand Standing Exercise Name blue pad on top of chair. Reps/Minutes 7x3 Gait Training Gait Activity ground level Description with his running shoes. Surface ground level Distance/Duration 200 ft x 3 Comments 3 laps x 200 ft pt has improved gait speed and WFL feet clearance. No toe tripping noted. able to maintain conversation as well Neuro Re-Education Treatment Balance Activities foam surface Surface blue foam Reps/Duration 5 mins Comments static stance with AP weight shift then EC for 20 sec PT-OP-T Assessment and Plan Start: 06/02/20 18:24 Freq: Status: Active Protocol: Document 11/16/20 08:49 HH (Rec: 11/16/20 09:40 [id number]) Physical Therapy Assessment Goals ankle strength Impairment R ankle DF =4-/5 Short Term Goal (STG) pt will reach 4+/5 for r ankle DF STG Duration 4 weeks Mcfp Goal (LTG) pt will reach 5/5 for R ankle DF pt will amb without toe drag to prevent fall risks. LTG Duration 8 weeks 6MWT Impairment 6 MWT Short Term Goal (STG) 11/09/20: 855 ft , break at 3rd min for 40 seconds. Toe dragged once. 6MWT Mcfp Goal (LTG) pt will reach 1000 ft for 6MWT without any toe drag/tripping episode LTG Duration 8 weeks 30 STS Impairment pt completed 7 times, 4 of them without armrest push offs . Short Term Goal (STG) 10/26/20 Pt is able to complete 7 times STS in 30 secs without using arms to push off. STG Duration 4 weeks Mcfp Goal (LTG) 11/09/20 pt completed STS 7 times w/o armrests but with trunk lean pt will be able to complete 10 times STS in 30 secs with arm push offs. LTG Duration 8 weeks Four Impairment Decreased L hip strength (AB 2 +/5, AD 1/5) Short Term Goal (STG) Pt will be able to move in bed with tolerable pain. (07/19/20: No change in L hip strength) 08/30 L hip abd strength 4-/5 STG Duration 07/16/20 (07/19/20: Moving in bed pain is 7/10) Mcfp Goal (LTG) 08/30 Pt is able to ambulate stairs (step over 1 handrail) and level ground with confidence to return to dog walking with his . LTG Duration 10/01/20 Three Impairment Decreased balance, loss of balance on initial standing and after 5'. Short Term Goal (STG) Pt will be able to transfer sit to stand without fear of losing his balance, and decreased TUG score to 19 sec' s. (07/19/20: TUG score 20, improved from 24 initially. Pt is very aware and concerned with sit to stand loss of balance). STG Duration 07/16/20 (07/19/20: Improved) Mcfp Goal (LTG) 10/26/20 TUG avg= 15s in 3 trials d/t weakness 08/30 goal met Pt is able to complete TUG in avg. 10.6 s in 3 trials. Decrease TUG time to 13-14 sec 's with pt able to stand > 5' without fear of loss of balance. LTG Duration 10/01/20 Two Impairment LLE pain from hip to foot rated 0-9/10, disturbing sleep . Short Term Goal (STG) 10/26 pt does not need to take any tylenol anymore Pt will reduce his need for Tylenol and will improve standing tolerance such that he will be able to exercise through an entire PT session. (07/19/20: Taking Tylenol in AM & PM and only 15% in afternoon, previously took AM & PM, and 2x at noon). STG Duration 07/16/20 (07/19/20: Progressing, pt rarely taking Tylenol at noon) Tapper Bit Goal (LTG) 08/30 Pt tool 2 tylenol for the entire week last week 08/30 goal met pt is able to sleep 6-8 hours in a daily basiss (07/19/20: Sleeps ~6 hrs, except last night had discomfort in the L hip and down lateral upper thigh). LTG Duration 10/01/20 (07/19/20: Sleeping ~6hrs with Tylenol) One Impairment Lacks appropriate self care HEP. Tapper Bit Goal (LTG) Pt will be independent with a self care HEP. LTG Duration 10/01/20 (07/12/20: Progressing) Assessment Summary Assessment Pt monserrat session well. no toe drag noted during gait training. Physical Therapy Plan Frequency and Duration Frequency of Treatment 2x/Week Duration of Treatment 8 weeks Plan of Care Start Date 10/26/20 Plan of Care End Date 12/25/20 Next Visit Focus/Plan Next Note Type Treatment Note Next Visit Plan balance focused, balacne, walking for endurance training , gait training
--- NOTE | 2020-11-18 09:41 | PT.OTN ---
Current Diagnoses Osteoarthritis of hip, unspecified (11/18/20) Other intervertebral disc displacement, lumbosacral region (11/18/20) Muscle weakness (generalized) (11/18/20) Unsteadiness on feet (11/18/20) Physical Therapy Treatment Note PT-OP-A Visit Information Start: 06/02/20 18:24 Freq: Status: Active Protocol: Document 11/18/20 09:01 HH (Rec: 11/18/20 09:41 HH [id number]) Out-Patient Physical Therapy Visit Information Visit Information Visit Type Treatment Note Visit Start Time 09:04 Visit Stop Time 09:45 Total Visit Minutes 41 Visit Number 33 Number of EPIC DIRECTOR Visits 0 PT-OP-B Current Condition Start: 06/02/20 18:24 Freq: Status: Active Protocol: Document 06/03/20 09:46 LRN (Rec: 06/03/20 10:43 LRN [id number]) Current Condition History of Current Condition Onset Date 2.5 months Current Complaints L hip and leg pain, buttock to foot down lateral LE. History of Current Condition Pain onset insidious. States he has disc problems in the back and it was thought he had a pinched nerve. The injection provided relief for 1.5 days. Now he feels he is getting progressively worse. Getting up in the morning pain is 8-10/10 and lessens during the day to 3-4/10. After sitting for awhile (1 hr) after walking to the kitchen his pain increases. By bedtime pain is 6-10/10. Sleeps 4-5 hrs and then must get up due to the pain. Not able to take pain pills due to bowel problems. Takes Tylenol nightly and upon waking to help control the pain. Prior Treatments and Tests Dr. Bowen gave him a shot in the back and a week lateral to hip. Pain was a little better after the injections. Pain changed from 10 to 4. Future Testing and Treatments Planned Dr. Bowen follow up in July. Treatment Goals Patient/Caregiver Goals Pt goals: Walk dog with . Decrease pain to sleep 6-8 hrs peacefully without use of Tylenol. Decrease use of Tylenol for sleep. Prior Functional Status Baseline Function- ADL's Independent Baseline Function- Mobility Independent Baseline Function- Gait Pt able to walk without difficulty. Baseline Function- Other Not able to walk with to walk dog due to feeling of leg giving way. Able to sleep 6-8 hours per night. Current Functional Impairments (Reported) Functional Limitations- Mobility/Gait Pain with walking, not steady. Functional Limitations- Recreation/ Walked with to walk dog 1 Hobbies mile. 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 L knee has not been able to straighten for ~ 2 yrs. Current Dx (per history review ): Left herniated disc (L5-S1 ), Hip Osteoarthritis, Polymyalgia rheumatica, spondylosis of lumbar spine, and HTN. PT-OP-C Subjective Start: 06/02/20 18:24 Freq: Status: Active Protocol: Document 11/18/20 09:01 HH (Rec: 11/18/20 09:41 HH [id number]) OP-PT Subjective Patient Comments Patient Comments I didnt sleep well last night but im doing good Patient Reported Progress Improving PT-OP-D Balance Start: 06/02/20 18:24 Freq: Status: Active Protocol: Document 06/03/20 09:46 LRN (Rec: 06/03/20 16:33 LRN [id number]) OP-PT Balance Assessment Standing Balance Static Standing Balance Ability Poor Dynamic Standing Balance Ability Fair Standing Balance Comments Pt has loss of balance on initial standing, using plinth to stabilized at legs and snowden as standing time increases. Pt did not tolerate static standing for > 5' before pain in LLE caused him to request sitting. Alba Fall Scale Copyright Permission PT-OP-E Functional Tests Start: 06/02/20 18:24 Freq: Status: Active Protocol: Document 10/26/20 08:52 (Rec: 10/26/20 09:44 HH [id number]) Functional Tests 6 Minute Walk Test Distance 986 Device Used no SPC Comments pt tripped twice his toe and almost fell and needed assistance to recover 30 Second Sit to Stand Test Score 7 Comments with arms pushed off from chair Timed Up and Go (TUG) Score 15s Comments pt slows down at turns d/t feeling unsteadiness. TUG Impairment Rating 40 to <60% Impaired (Score 14- 15) PT-OP-G Mobility & Gait Start: 06/02/20 18:24 Freq: Status: Active Protocol: Document 10/26/20 08:52 HH (Rec: 10/26/20 09:44 HH [id number]) Stair Climbing Evaluation Comments Stair Climbing Comments step over pattern for ascending with L rail step to pattern for descending with L rail PT-OP-H Neuro Start: 06/02/20 18:24 Freq: Status: Active Protocol: Document 06/03/20 09:46 LRN (Rec: 06/03/20 14:51 LRN [id number]) Sensation Evaluation Gross Sensation Gross Sensation Left LE Impaired Sensation Description Numbness,Pain Dermatome Impairments L4,L5,S1 Deep Tendon Reflex & Clonus Assessment Deep Tendon Reflex Left Achilles Deep Tendon Reflex 0 Absent Bilateral Patellar Deep Tendon Reflex 1+ Diminished PT-OP-J Posture/Palpation/Skin Start: 06/02/20 18:24 Freq: Status: Active Protocol: Document 06/03/20 09:46 LRN (Rec: 06/03/20 14:51 LRN [id number]) Posture Evaluation Position Standing Head/C-Spine Posture Forward Head L-Spine Posture Flattened Pelvis Posture Posterior Tilted Hip Posture (L) Flexed,(R) Flexed Palpation Assessment Location L TFL Palpation Location TFL Muscle belly Palpation Findings Tenderness L lateral hip Palpation Location Greater trochanter Palpation Findings Tenderness PT-OP-K Range of Motion Start: 06/02/20 18:24 Freq: Status: Active Protocol: Document 06/08/20 14:27 LRN (Rec: 06/08/20 15:30 LRN [id number]) Lumbar Spine Range of Motion Lumbar Spine Active Degrees Testing Position Standing Flexion 7 Extension 5 Lateral Flexion Left 10 Lateral Flexion Right 15 Comments Trunk flex: 5 hip flex Trunk ext: 5 hip ext PT-OP-L Special Tests Start: 06/02/20 18:24 Freq: Status: Active Protocol: Document 06/03/20 09:46 LRN (Rec: 06/03/20 14:51 LRN [id number]) Special Tests Lumbar Spine Special Tests Straight Leg Raise Test Results Neg bilaterally Comments Hamstring tightness Hip Special Tests AILEEN Test Results + R for anterior groin pain Comments Indicates 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 Indicates possible SIJ dysfunction. PT-OP-M Strength Start: 06/02/20 18:24 Freq: Status: Active Protocol: Document 08/30/20 09:54 (Rec: 08/30/20 10:30 [id number]) Hip Strength Hip Manual Muscle Testing Right Abduction 4- Good- PT-OP-Q Treatments Start: 06/02/20 18:24 Freq: Status: Active Protocol: Document 11/18/20 09:01 (Rec: 11/18/20 09:41 [id number]) Cardio Equipment Bicycle (Upright) Duration (Minutes) 7 Resistance 5 Therapeutic Exercises Sitting Exercises seated ankle DF Side bilateral Equipment Used half foam roller Reps/Minutes 6 mins Comments pt noted R side is weaker Standing Exercises calf raises Side bilateral Reps/Minutes 8 x2 Comments for HEP ankle board Side bilateral Equipment Used ankle board Comments DF and PF toe tap Side bilateral Equipment Used no UE support Reps/Minutes 20 x2 step up Standing Exercise Name step to pattern Equipment Used 6 step Reps/Minutes 10 x3 Sit to Stand Standing Exercise Name blue pad on top of chair. Reps/Minutes 7x3 Gait Training Gait Activity ground level Description with his running shoes. Surface ground level Distance/Duration 200 ft x 3 Comments 3 laps x 200 ft = 2min 25 secs pt had few minor toe drag and needed cues for heel srikes Neuro Re-Education Treatment Balance Activities foam surface Surface blue foam Reps/Duration 5 mins Comments static stance with AP weight shift then EC for 60 sec PT-OP-T Assessment and Plan Start: 06/02/20 18:24 Freq: Status: Active Protocol: Document 11/18/20 09:01 (Rec: 11/18/20 09:41 [id number]) Physical Therapy Assessment Goals ankle strength Impairment R ankle DF =4-/5 Short Term Goal (STG) pt will reach 4+/5 for r ankle DF STG Duration 4 weeks Perfect Binder Feeder Offbearer Goal (LTG) pt will reach 5/5 for R ankle DF pt will amb without toe drag to prevent fall risks. LTG Duration 8 weeks 6MWT Impairment 6 MWT Short Term Goal (STG) 11/09/20: 855 ft , break at 3rd min for 40 seconds. Toe dragged once. 6MWT Perfect Binder Feeder Offbearer Goal (LTG) pt will reach 1000 ft for 6MWT without any toe drag/tripping episode LTG Duration 8 weeks 30 STS Impairment pt completed 7 times, 4 of them without armrest push offs . Short Term Goal (STG) 1/5/21 Pt is able to complete 7 times STS in 30 secs without using arms to push off. STG Duration 4 weeks Perfect Binder Feeder Offbearer Goal (LTG) 11/09/20 pt completed STS 7 times w/o armrests but with trunk lean pt will be able to complete 10 times STS in 30 secs with arm push offs. LTG Duration 8 weeks Four Impairment Decreased L hip strength (AB 2 +/5, AD 1/5) Short Term Goal (STG) Pt will be able to move in bed with tolerable pain. (07/19/20: No change in L hip strength) 08/30 L hip abd strength 4-/5 STG Duration 07/16/20 (07/19/20: Moving in bed pain is 7/10) Perfect Binder Feeder Offbearer Goal (LTG) 08/30 Pt is able to ambulate stairs (step over 1 handrail) and level ground with confidence to return to dog walking with his . LTG Duration 10/01/20 Three Impairment Decreased balance, loss of balance on initial standing and after 5'. Short Term Goal (STG) Pt will be able to transfer sit to stand without fear of losing his balance, and decreased TUG score to 19 sec' s. (07/19/20: TUG score 20, improved from 24 initially. Pt is very aware and concerned with sit to stand loss of balance). STG Duration 07/16/20 (07/19/20: Improved) [facility] Goal (LTG) 10/26/20 TUG avg= 15s in 3 trials d/t weakness 08/30 goal met Pt is able to complete TUG in avg. 10.6 s in 3 trials. Decrease TUG time to 13-14 sec 's with pt able to stand > 5' without fear of loss of balance. LTG Duration 10/01/20 Two Impairment LLE pain from hip to foot rated 0-9/10, disturbing sleep . Short Term Goal (STG) 10/26 pt does not need to take any tylenol anymore Pt will reduce his need for Tylenol and will improve standing tolerance such that he will be able to exercise through an entire PT session. (07/19/20: Taking Tylenol in AM & PM and only 15% in afternoon, previously took AM & PM, and 2x at noon). STG Duration 07/16/20 (07/19/20: Progressing, pt rarely taking Tylenol at noon) [facility] Goal (LTG) 08/30 Pt tool 2 tylenol for the entire week last week 08/30 goal met pt is able to sleep 6-8 hours in a daily basiss (07/19/20: Sleeps ~6 hrs, except last night had discomfort in the L hip and down lateral upper thigh). LTG Duration 10/01/20 (07/19/20: Sleeping ~6hrs with Tylenol) One Impairment Lacks appropriate self care HEP. [facility] Goal (LTG) Pt will be independent with a self care HEP. LTG Duration 10/01/20 (07/12/20: Progressing) Assessment Summary Assessment Pt monserrat session well. Pt shows improved proprioception for balance ex with EC. He could hold up to >60seconds standing on blue foam. Physical Therapy Plan Frequency and Duration Frequency of Treatment 2x/Week Duration of Treatment 8 weeks Plan of Care Start Date 10/26/20 Plan of Care End Date 12/25/20 Next Visit Focus/Plan Next Note Type Treatment Note Next Visit Plan balance focused, balacne, walking for endurance training , gait training
--- NOTE | 2020-11-23 09:48 | PT.OTN ---
Current Diagnoses Osteoarthritis of hip, unspecified (11/23/20) Other intervertebral disc displacement, lumbosacral region (11/23/20) Muscle weakness (generalized) (11/23/20) Unsteadiness on feet (11/23/20) Physical Therapy Treatment Note PT-OP-A Visit Information Start: 06/02/20 18:24 Freq: Status: Active Protocol: Document 11/23/20 09:07 SP (Rec: 11/23/20 12:21 SP [email or web address]) Out-Patient Physical Therapy Visit Information Visit Information Visit Type Treatment Note Visit Note CHARLA Sainz attended and provided instruction in ther ex as needed to assist and supervised by XU Trejo. Visit Start Time 09:07 Visit Stop Time 09:48 Total Visit Minutes 41 Visit Number 34 Number of PHOTO CHECKER Visits 1 PT-OP-B Current Condition Start: 06/02/20 18:24 Freq: Status: Active Protocol: Document 06/03/20 09:46 LRN (Rec: 06/03/20 10:43 LRN [id number]) Current Condition History of Current Condition Onset Date 2.5 months Current Complaints L hip and leg pain, buttock to foot down lateral LE. History of Current Condition Pain onset insidious. States he has disc problems in the back and it was thought he had a pinched nerve. The injection provided relief for 1.5 days. Now he feels he is getting progressively worse. Getting up in the morning pain is 8-10/10 and lessens during the day to 3-4/10. After sitting for awhile (1 hr) after walking to the kitchen his pain increases. By bedtime pain is 6-10/10. Sleeps 4-5 hrs and then must get up due to the pain. Not able to take pain pills due to bowel problems. Takes Tylenol nightly and upon waking to help control the pain. Prior Treatments and Tests Dr. Bowen gave him a shot in the back and a week lateral to hip. Pain was a little better after the injections. Pain changed from 10 to 4. Future Testing and Treatments Planned Dr. Bowen follow up in July. Treatment Goals Patient/Caregiver Goals Pt goals: Walk dog with . Decrease pain to sleep 6-8 hrs peacefully without use of Tylenol. Decrease use of Tylenol for sleep. Prior Functional Status Baseline Function- ADL's Independent Baseline Function- Mobility Independent Baseline Function- Gait Pt able to walk without difficulty. Baseline Function- Other Not able to walk with to walk dog due to feeling of leg giving way. Able to sleep 6-8 hours per night. Current Functional Impairments (Reported) Functional Limitations- Mobility/Gait Pain with walking, not steady. Functional Limitations- Recreation/ Walked with to walk dog 1 Hobb[address] mile. 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 L knee has not been able to straighten for ~ 2 yrs. Current Dx (per history review ): Left herniated disc (L5-S1 ), Hip Osteoarthritis, Polymyalgia rheumatica, spondylosis of lumbar spine, and HTN. PT-OP-C Subjective Start: 06/02/20 18:24 Freq: Status: Active Protocol: Document 11/23/20 09:07 SP (Rec: 11/23/20 12:21 SP [email or web address]) OP-PT Subjective Patient Comments Patient Comments Pt reported having a polymyalgia flare up today and his walking isn't as good and achy in BUE, BLE and all over that is affecting his balance . Pt stated didn't want to take his prednisone today due to it making him sleepy and wanted to attend PT. Pt requested that wanted to take it low diaz today and maybe work on stretching instead. Patient Reported Progress Worse PT-OP-D Balance Start: 06/02/20 18:24 Freq: Status: Active Protocol: Document 06/03/20 09:46 LRN (Rec: 06/03/20 16:33 LRN [id number]) OP-PT Balance Assessment Standing Balance Static Standing Balance Ability Poor Dynamic Standing Balance Ability Fair Standing Balance Comments Pt has loss of balance on initial standing, using plinth to stabilized at legs and snowden as standing time increases. Pt did not tolerate static standing for > 5' before pain in LLE caused him to request sitting. Alba Fall Scale Copyright Permission PT-OP-E Functional Tests Start: 06/02/20 18:24 Freq: Status: Active Protocol: Document 10/26/20 08:52 HH (Rec: 10/26/20 09:44 HH [id number]) Functional Tests 6 Minute Walk Test Distance 986 Device Used no SPC Comments pt tripped twice his toe and almost fell and needed assistance to recover 30 Second Sit to Stand Test Score 7 Comments with arms pushed off from chair Timed Up and Go (TUG) Score 15s Comments pt slows down at turns d/t feeling unsteadiness. TUG Impairment Rating 40 to <60% Impaired (Score 14- 15) PT-OP-G Mobility & Gait Start: 06/02/20 18:24 Freq: Status: Active Protocol: Document 10/26/20 08:52 HH (Rec: 10/26/20 09:44 HH [id number]) Stair Climbing Evaluation Comments Stair Climbing Comments step over pattern for ascending with L rail step to pattern for descending with L rail PT-OP-H Neuro Start: 06/02/20 18:24 Freq: Status: Active Protocol: Document 06/03/20 09:46 LRN (Rec: 06/03/20 14:51 LRN [id number]) Sensation Evaluation Gross Sensation Gross Sensation Left LE Impaired Sensation Description Numbness,Pain Dermatome Impairments L4,L5,S1 Deep Tendon Reflex & Clonus Assessment Deep Tendon Reflex Left Achilles Deep Tendon Reflex 0 Absent Bilateral Patellar Deep Tendon Reflex 1+ Diminished PT-OP-J Posture/Palpation/Skin Start: 06/02/20 18:24 Freq: Status: Active Protocol: Document 06/03/20 09:46 LRN (Rec: 06/03/20 14:51 LRN [id number]) Posture Evaluation Position Standing Head/C-Spine Posture Forward Head L-Spine Posture Flattened Pelvis Posture Posterior Tilted Hip Posture (L) Flexed,(R) Flexed Palpation Assessment Location L TFL Palpation Location TFL Muscle belly Palpation Findings Tenderness L lateral hip Palpation Location Greater trochanter Palpation Findings Tenderness PT-OP-K Range of Motion Start: 06/02/20 18:24 Freq: Status: Active Protocol: Document 06/08/20 14:27 LRN (Rec: 06/08/20 15:30 LRN [id number]) Lumbar Spine Range of Motion Lumbar Spine Active Degrees Testing Position Standing Flexion 7 Extension 5 Lateral Flexion Left 10 Lateral Flexion Right 15 Comments Trunk flex: 5 hip flex Trunk ext: 5 hip ext PT-OP-L Special Tests Start: 06/02/20 18:24 Freq: Status: Active Protocol: Document 06/03/20 09:46 LRN (Rec: 06/03/20 14:51 LRN [id number]) Special Tests Lumbar Spine Special Tests Straight Leg Raise Test Results Neg bilaterally Comments Hamstring tightness Hip Special Tests AILEEN Test Results + R for anterior groin pain Comments Indicates 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 Indicates possible SIJ dysfunction. PT-OP-M Strength Start: 06/02/20 18:24 Freq: Status: Active Protocol: Document 08/30/20 09:54 HH (Rec: 08/30/20 10:30 HH [id number]) Hip Strength Hip Manual Muscle Testing Right Abduction 4- Good- PT-OP-Q Treatments Start: 06/02/20 18:24 Freq: Status: Active Protocol: Document 11/23/20 09:07 SP (Rec: 11/23/20 12:21 SP [email or web address]) Cardio Equipment Recumbent Bicycle Duration (Minutes) 6 Resistance 8 Seat Position 11 Other cued can use handles at sides Therapeutic Exercises Supine Exercises LTR Side bilateral Reps/Minutes 30 x2 Comments cues on lumbar rotation only LE Hamstring/neural stretch Supine Exercise Name Hamstring stretch Side bilateral Resistance manual then instruction self Equipment Used strap Reps/Minutes 30 each LE Comments cued knee ext awareness best can Piriformis stretch Supine Exercise Name IR, ER opposite knee to chest Side bilateral Resistance manual then instruction self Equipment Used BUE assist Reps/Minutes 30 each LE Comments opposite knee bent for LS comfort BKFO stretch Supine Exercise Name BKFO Side bilateral Resistance AROM Reps/Minutes x10 Comments cued slow muscular pacing control, TA awareness DKTC stretch Supine Exercise Name SKTC Side bilateral Resistance manual then self instruction Reps/Minutes 30 x2 B Comments cued opposite LE bent or straight for comfort Sitting Exercises Hamstring stretch Sitting Exercise Name discussed not performed, gave hand out Side bilateral Equipment Used 30 Comments hip hinge straight back Hip rotator stretch Sitting Exercise Name discussed review but not performed, provided hand out w /hip IR/ ER Side bilateral Reps/Minutes 30 Neuro Re-Education Treatment Balance Activities ground level Details NBOS Surface stable Equipment PRN contact raised table Comments 1.head turns 2.EC up to 10 sec- unsteady CGA no LOB. staggered stance Surface stable Equipment PRN contact raised table Reps/Duration not timed Comments 1.head turns 2.EC unable, unsteady CG- Min A Cued upright posture, core and glut facilitation with BLE even wt distributed improved Self-Care/Home Management Treatment Education Patient Education Fall Risk,Home Exercise Program,Posture,Safety Other Education Discussed with pt self stretching for decreased tightness supine/ sitting and provided hand outs to view. Also discussed safety use of 4WW has at home for safety balance awareness recommended use today for increased support and verbalized understanding, stated usually only uses outside but maybe will use today and times like today. PT-OP-T Assessment and Plan Start: 06/02/20 18:24 Freq: Status: Active Protocol: Document 11/23/20 09:07 SP (Rec: 11/23/20 12:21 SP [email or web address]) Physical Therapy Assessment Goals ankle strength Impairment R ankle DF =4-/5 Short Term Goal (STG) pt will reach 4+/5 for r ankle DF STG Duration 4 weeks Longterm Goal (LTG) pt will reach 5/5 for R ankle DF pt will amb without toe drag to prevent fall risks. LTG Duration 8 weeks 6MWT Impairment 6 MWT Short Term Goal (STG) 11/09/20: 855 ft , break at 3rd min for 40 seconds. Toe dragged once. 6MWT Longterm Goal (LTG) pt will reach 1000 ft for 6MWT without any toe drag/tripping episode LTG Duration 8 weeks 30 STS Impairment pt completed 7 times, 4 of them without armrest push offs . Short Term Goal (STG) 10/26/20 Pt is able to complete 7 times STS in 30 secs without using arms to push off. STG Duration 4 weeks [employer] Goal (LTG) 11/09/20 pt completed STS 7 times w/o armrests but with trunk lean pt will be able to complete 10 times STS in 30 secs with arm push offs. LTG Duration 8 weeks Four Impairment Decreased L hip strength (AB 2 +/5, AD 1/5) Short Term Goal (STG) Pt will be able to move in bed with tolerable pain. (07/19/20: No change in L hip strength) 08/30 L hip abd strength 4-/5 STG Duration 07/16/20 (07/19/20: Moving in bed pain is 7/10) Longterm Goal (LTG) 08/30 Pt is able to ambulate stairs (step over 1 handrail) and level ground with confidence to return to dog walking with his . LTG Duration 10/01/20 Three Impairment Decreased balance, loss of balance on initial standing and after 5'. Short Term Goal (STG) Pt will be able to transfer sit to stand without fear of losing his balance, and decreased TUG score to 19 sec' s. (07/19/20: TUG score 20, improved from 24 initially. Pt is very aware and concerned with sit to stand loss of balance). STG Duration 07/16/20 (07/19/20: Improved) [employer] Goal (LTG) 10/26/20 TUG avg= 15s in 3 trials d/t weakness 08/30 goal met Pt is able to complete TUG in avg. 10.6 s in 3 trials. Decrease TUG time to 13-14 sec 's with pt able to stand > 5' without fear of loss of balance. LTG Duration 10/01/20 Two Impairment LLE pain from hip to foot rated 0-9/10, disturbing sleep . Short Term Goal (STG) 10/26 pt does not need to take any tylenol anymore Pt will reduce his need for Tylenol and will improve standing tolerance such that he will be able to exercise through an entire PT session. (07/19/20: Taking Tylenol in AM & PM and only 15% in afternoon, previously took AM & PM, and 2x at noon). STG Duration 07/16/20 (07/19/20: Progressing, pt rarely taking Tylenol at noon) Longterm Goal (LTG) 08/30 Pt tool 2 tylenol for the entire week last week 08/30 goal met pt is able to sleep 6-8 hours in a daily basiss (07/19/20: Sleeps ~6 hrs, except last night had discomfort in the L hip and down lateral upper thigh). LTG Duration 10/01/20 (07/19/20: Sleeping ~6hrs with Tylenol) One Impairment Lacks appropriate self care HEP. Longterm Goal (LTG) Pt will be independent with a self care HEP. LTG Duration 10/01/20 (07/12/20: Progressing) Assessment Summary Assessment Tx focused on ROM, stretching, core/ glut facilitation awareness then balance stationary at end of tx for self feedback. Pt responded well to stretching, unsteady with stationary NBOS balance today and stated is going to take some prednisone when gets home to help with achiness and will use 4WW today for safety walking. Pt noted improvement with stability by end of tx. PHOTO CHECKER noted decreased retro and lateral lean, more balanced over feet leaving. Physical Therapy Plan Frequency and Duration Frequency of Treatment 2x/Week Duration of Treatment 8 weeks Plan of Care Start Date 10/26/20 Plan of Care End Date 12/25/20 Therapeutic Interventions Therapeutic Interventions Balance Training,Gait Training ,Home Exercise Program,Joint Mobilizations,Manual Therapy, Neuromuscular Re-education, Patient/Caregiver Education, Self-Care/Home Management,Soft Tissue Mobilization, Therapeutic Activities, Therapeutic Exercises Modalities Cold Pack/Ice Massage,Electric Stimulation,Hot Packs, Ultrasound Next Visit Focus/Plan Next Note Type Treatment Note Next Visit Plan Assess response to stretching and balance last tx. Continue PT POC: focus, balance, walking for endurance training, gait training
--- NOTE | 2020-11-30 10:20 | PT.OTN ---
Current Diagnoses Osteoarthritis of hip, unspecified (11/30/20) Other intervertebral disc displacement, lumbosacral region (11/30/20) Muscle weakness (generalized) (11/30/20) Unsteadiness on feet (11/30/20) Physical Therapy Treatment Note PT-OP-A Visit Information Start: 06/02/20 18:24 Freq: Status: Active Protocol: Document 11/30/20 09:32 HH (Rec: 11/30/20 10:20 HH [id number]) Out-Patient Physical Therapy Visit Information Visit Information Visit Type Treatment Note Visit Start Time 09:30 Visit Stop Time 10:16 Total Visit Minutes 46 Visit Number 35 Number of SNACK STEWARD Visits 0 PT-OP-B Current Condition Start: 06/02/20 18:24 Freq: Status: Active Protocol: Document 06/03/20 09:46 LRN (Rec: 06/03/20 10:43 LRN [id number]) Current Condition History of Current Condition Onset Date 2.5 months Current Complaints L hip and leg pain, buttock to foot down lateral LE. History of Current Condition Pain onset insidious. States he has disc problems in the back and it was thought he had a pinched nerve. The injection provided relief for 1.5 days. Now he feels he is getting progressively worse. Getting up in the morning pain is 8-10/10 and lessens during the day to 3-4/10. After sitting for awhile (1 hr) after walking to the kitchen his pain increases. By bedtime pain is 6-10/10. Sleeps 4-5 hrs and then must get up due to the pain. Not able to take pain pills due to bowel problems. Takes Tylenol nightly and upon waking to help control the pain. Prior Treatments and Tests Dr. Bowen gave him a shot in the back and a week lateral to hip. Pain was a little better after the injections. Pain changed from 10 to 4. Future Testing and Treatments Planned Dr. Bowen follow up in July. Treatment Goals Patient/Caregiver Goals Pt goals: Walk dog with . Decrease pain to sleep 6-8 hrs peacefully without use of Tylenol. Decrease use of Tylenol for sleep. Prior Functional Status Baseline Function- ADL's Independent Baseline Function- Mobility Independent Baseline Function- Gait Pt able to walk without difficulty. Baseline Function- Other Not able to walk with to walk dog due to feeling of leg giving way. Able to sleep 6-8 hours per night. Current Functional Impairments (Reported) Functional Limitations- Mobility/Gait Pain with walking, not steady. Functional Limitations- Recreation/ Walked with to walk dog 1 Hobbies mile. 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 L knee has not been able to straighten for ~ 2 yrs. Current Dx (per history review ): Left herniated disc (L5-S1 ), Hip Osteoarthritis, Polymyalgia rheumatica, spondylosis of lumbar spine, and HTN. PT-OP-C Subjective Start: 06/02/20 18:24 Freq: Status: Active Protocol: Document 11/23/20 09:07 SP (Rec: 11/23/20 12:21 SP [id number]) OP-PT Subjective Patient Comments Patient Comments Pt reported having a polymyalgia flare up today and his walking isn't as good and achy in BUE, BLE and all over that is affecting his balance . Pt stated didn't want to take his prednisone today due to it making him sleepy and wanted to attend PT. Pt requested that wanted to take it low diaz today and maybe work on stretching instead. Patient Reported Progress Worse PT-OP-D Balance Start: 06/02/20 18:24 Freq: Status: Active Protocol: Document 06/03/20 09:46 LRN (Rec: 06/03/20 16:33 LRN [id number]) OP-PT Balance Assessment Standing Balance Static Standing Balance Ability Poor Dynamic Standing Balance Ability Fair Standing Balance Comments Pt has loss of balance on initial standing, using plinth to stabilized at legs and snowden as standing time increases. Pt did not tolerate static standing for > 5' before pain in LLE caused him to request sitting. Alba Fall Scale Copyright Permission PT-OP-E Functional Tests Start: 06/02/20 18:24 Freq: Status: Active Protocol: Document 10/26/20 08:52 HH (Rec: 10/26/20 09:44 HH [id number]) Functional Tests 6 Minute Walk Test Distance 986 Device Used no SPC Comments pt tripped twice his toe and almost fell and needed assistance to recover 30 Second Sit to Stand Test Score 7 Comments with arms pushed off from chair Timed Up and Go (TUG) Score 15s Comments pt slows down at turns d/t feeling unsteadiness. TUG Impairment Rating 40 to <60% Impaired (Score 14- 15) PT-OP-G Mobility & Gait Start: 06/02/20 18:24 Freq: Status: Active Protocol: Document 10/26/20 08:52 HH (Rec: 10/26/20 09:44 HH [id number]) Stair Climbing Evaluation Comments Stair Climbing Comments step over pattern for ascending with L rail step to pattern for descending with L rail PT-OP-H Neuro Start: 06/02/20 18:24 Freq: Status: Active Protocol: Document 06/03/20 09:46 LRN (Rec: 06/03/20 14:51 LRN [id number]) Sensation Evaluation Gross Sensation Gross Sensation Left LE Impaired Sensation Description Numbness,Pain Dermatome Impairments L4,L5,S1 Deep Tendon Reflex & Clonus Assessment Deep Tendon Reflex Left Achilles Deep Tendon Reflex 0 Absent Bilateral Patellar Deep Tendon Reflex 1+ Diminished PT-OP-J Posture/Palpation/Skin Start: 06/02/20 18:24 Freq: Status: Active Protocol: Document 06/03/20 09:46 LRN (Rec: 06/03/20 14:51 LRN [id number]) Posture Evaluation Position Standing Head/C-Spine Posture Forward Head L-Spine Posture Flattened Pelvis Posture Posterior Tilted Hip Posture (L) Flexed,(R) Flexed Palpation Assessment Location L TFL Palpation Location TFL Muscle belly Palpation Findings Tenderness L lateral hip Palpation Location Greater trochanter Palpation Findings Tenderness PT-OP-K Range of Motion Start: 06/02/20 18:24 Freq: Status: Active Protocol: Document 06/08/20 14:27 LRN (Rec: 06/08/20 15:30 LRN [id number]) Lumbar Spine Range of Motion Lumbar Spine Active Degrees Testing Position Standing Flexion 7 Extension 5 Lateral Flexion Left 10 Lateral Flexion Right 15 Comments Trunk flex: 5 hip flex Trunk ext: 5 hip ext PT-OP-L Special Tests Start: 06/02/20 18:24 Freq: Status: Active Protocol: Document 06/03/20 09:46 LRN (Rec: 06/03/20 14:51 LRN [id number]) Special Tests Lumbar Spine Special Tests Straight Leg Raise Test Results Neg bilaterally Comments Hamstring tightness Hip Special Tests AILEEN Test Results + R for anterior groin pain Comments Indicates 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 Indicates possible SIJ dysfunction. PT-OP-M Strength Start: 06/02/20 18:24 Freq: Status: Active Protocol: Document 08/30/20 09:54 HH (Rec: 08/30/20 10:30 HH [id number]) Hip Strength Hip Manual Muscle Testing Right Abduction 4- Good- PT-OP-Q Treatments Start: 06/02/20 18:24 Freq: Status: Active Protocol: Document 11/30/20 09:32 HH (Rec: 11/30/20 10:20 [id number]) Cardio Equipment Bicycle (Upright) Duration (Minutes) 7 Resistance 5 Therapeutic Exercises Sitting Exercises seated ankle DF Side bilateral Equipment Used half foam roller Reps/Minutes 6 mins Comments pt noted R side is weaker Standing Exercises calf raises Side bilateral Reps/Minutes 8 x2 Comments for HEP ankle board Side bilateral Equipment Used ankle board Comments DF and PF step up Standing Exercise Name step to pattern Equipment Used 8 step Reps/Minutes 8x2 Comments CGA from PT Sit to Stand Standing Exercise Name blue pad on top of chair. Reps/Minutes 7x3 Gait Training Gait Activity ground level Description with his running shoes. Surface ground level Distance/Duration 200 ft x 4 Comments 3 laps x 200 ft = 3min 47 secs no toe drag noted. He was able to maintain conversation while walking. PT-OP-T Assessment and Plan Start: 06/02/20 18:24 Freq: Status: Active Protocol: Document 11/30/20 09:32 HH (Rec: 11/30/20 10:20 [id number]) Physical Therapy Assessment Goals ankle strength Impairment R ankle DF =4-/5 Short Term Goal (STG) pt will reach 4+/5 for r ankle DF STG Duration 4 weeks Wirer Maintenance Goal (LTG) pt will reach 5/5 for R ankle DF pt will amb without toe drag to prevent fall risks. LTG Duration 8 weeks 6MWT Impairment 6 MWT Short Term Goal (STG) 11/09/20: 855 ft , break at 3rd min for 40 seconds. Toe dragged once. 6MWT Wirer Maintenance Goal (LTG) pt will reach 1000 ft for 6MWT without any toe drag/tripping episode LTG Duration 8 weeks 30 STS Impairment pt completed 7 times, 4 of them without armrest push offs . Short Term Goal (STG) 10/26/20 Pt is able to complete 7 times STS in 30 secs without using arms to push off. STG Duration 4 weeks Longterm Goal (LTG) 11/09/20 pt completed STS 7 times w/o armrests but with trunk lean pt will be able to complete 10 times STS in 30 secs with arm push offs. LTG Duration 8 weeks Four Impairment Decreased L hip strength (AB 2 +/5, AD 1/5) Short Term Goal (STG) Pt will be able to move in bed with tolerable pain. (07/19/20: No change in L hip strength) 08/30 L hip abd strength 4-/5 STG Duration 07/16/20 (07/19/20: Moving in bed pain is 7/10) Longterm Goal (LTG) 08/30 Pt is able to ambulate stairs (step over 1 handrail) and level ground with confidence to return to dog walking with his . LTG Duration 10/01/20 Three Impairment Decreased balance, loss of balance on initial standing and after 5'. Short Term Goal (STG) Pt will be able to transfer sit to stand without fear of losing his balance, and decreased TUG score to 19 sec' s. (07/19/20: TUG score 20, improved from 24 initially. Pt is very aware and concerned with sit to stand loss of balance). STG Duration 07/16/20 (07/19/20: Improved) Longterm Goal (LTG) 10/26/20 TUG avg= 15s in 3 trials d/t weakness 08/30 goal met Pt is able to complete TUG in avg. 10.6 s in 3 trials. Decrease TUG time to 13-14 sec 's with pt able to stand > 5' without fear of loss of balance. LTG Duration 10/01/20 Two Impairment LLE pain from hip to foot rated 0-9/10, disturbing sleep . Short Term Goal (STG) 10/26 pt does not need to take any tylenol anymore Pt will reduce his need for Tylenol and will improve standing tolerance such that he will be able to exercise through an entire PT session. (07/19/20: Taking Tylenol in AM & PM and only 15% in afternoon, previously took AM & PM, and 2x at noon). STG Duration 07/16/20 (07/19/20: Progressing, pt rarely taking Tylenol at noon) Longterm Goal (LTG) 08/30 Pt tool 2 tylenol for the entire week last week 08/30 goal met pt is able to sleep 6-8 hours in a daily basiss (07/19/20: Sleeps ~6 hrs, except last night had discomfort in the L hip and down lateral upper thigh). LTG Duration 10/01/20 (07/19/20: Sleeping ~6hrs with Tylenol) One Impairment Lacks appropriate self care HEP. Wirer Maintenance Goal (LTG) Pt will be independent with a self care HEP. LTG Duration 10/01/20 (07/12/20: Progressing) Assessment Summary Assessment pt's R DF strength has improved and pt also noticed he has less toe drag now. His gait cont to improve who was able to maintain conversation while walking without toe drag . Physical Therapy Plan Frequency and Duration Frequency of Treatment 1x/Week Duration of Treatment 8 weeks Plan of Care Start Date 10/26/20 Plan of Care End Date 12/25/20 Next Visit Focus/Plan Next Note Type Treatment Note Next Visit Plan Assess response to stretching and balance last tx. Continue PT POC: focus, balance, walking for endurance training, gait training
--- NOTE | 2020-12-07 09:46 | PT.OTN ---
Current Diagnoses Osteoarthritis of hip, unspecified (12/07/20) Other intervertebral disc displacement, lumbosacral region (12/07/20) Muscle weakness (generalized) (12/07/20) Unsteadiness on feet (12/07/20) Physical Therapy Treatment Note PT-OP-A Visit Information Start: 06/02/20 18:24 Freq: Status: Active Protocol: Document 12/07/20 09:01 LD (Rec: 12/07/20 10:22 LD [id number]) Out-Patient Physical Therapy Visit Information Visit Information Visit Type Treatment Note Visit Note CHARLA Sainz led tx w/ supervision of XU Trejo. Visit Start Time 09:01 Visit Stop Time 09:46 Total Visit Minutes 45 Visit Number 36 Number of CLINICAL TRIALS NURSE Visits 1 Evaluation Information Evaluation Date 06/03/20 Precautions Precautions L knee has not been able to straighten for ~ 2 yrs. Current Dx (per history review ): Left herniated disc (L5-S1 ), Hip Osteoarthritis, Polymyalgia rheumatica, spondylosis of lumbar spine, and HTN. PT-OP-B Current Condition Start: 06/02/20 18:24 Freq: Status: Active Protocol: Document 06/03/20 09:46 LRN (Rec: 06/03/20 10:43 LRN [id number]) Current Condition History of Current Condition Onset Date 2.5 months Current Complaints L hip and leg pain, buttock to foot down lateral LE. History of Current Condition Pain onset insidious. States he has disc problems in the back and it was thought he had a pinched nerve. The injection provided relief for 1.5 days. Now he feels he is getting progressively worse. Getting up in the morning pain is 8-10/10 and lessens during the day to 3-4/10. After sitting for awhile (1 hr) after walking to the kitchen his pain increases. By bedtime pain is 6-10/10. Sleeps 4-5 hrs and then must get up due to the pain. Not able to take pain pills due to bowel problems. Takes Tylenol nightly and upon waking to help control the pain. Prior Treatments and Tests Dr. Bowen gave him a shot in the back and a week lateral to hip. Pain was a little better after the injections. Pain changed from 10 to 4. Future Testing and Treatments Planned Dr. Bowen follow up in July. Treatment Goals Patient/Caregiver Goals Pt goals: Walk dog with . Decrease pain to sleep 6-8 hrs peacefully without use of Tylenol. Decrease use of Tylenol for sleep. Prior Functional Status Baseline Function- ADL's Independent Baseline Function- Mobility Independent Baseline Function- Gait Pt able to walk without difficulty. Baseline Function- Other Not able to walk with to walk dog due to feeling of leg giving way. Able to sleep 6-8 hours per night. Current Functional Impairments (Reported) Functional Limitations- Mobility/Gait Pain with walking, not steady. Functional Limitations- Recreation/ Walked with to walk dog 1 Hobbies mile. 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 L knee has not been able to straighten for ~ 2 yrs. Current Dx (per history review ): Left herniated disc (L5-S1 ), Hip Osteoarthritis, Polymyalgia rheumatica, spondylosis of lumbar spine, and HTN. PT-OP-C Subjective Start: 06/02/20 18:24 Freq: Status: Active Protocol: Document 12/07/20 09:01 LD (Rec: 12/07/20 10:22 LD [id number]) OP-PT Subjective Patient Comments Patient Comments Pt reports cold weather has taken a toll on him. Recieved his first covid vaccine shot yesterday, feels achy and tired. PT-OP-D Balance Start: 06/02/20 18:24 Freq: Status: Active Protocol: Document 06/03/20 09:46 LRN (Rec: 06/03/20 16:33 LRN [id number]) OP-PT Balance Assessment Standing Balance Static Standing Balance Ability Poor Dynamic Standing Balance Ability Fair Standing Balance Comments Pt has loss of balance on initial standing, using plinth to stabilized at legs and snowden as standing time increases. Pt did not tolerate static standing for > 5' before pain in LLE caused him to request sitting. Alba Fall Scale Copyright Permission PT-OP-E Functional Tests Start: 06/02/20 18:24 Freq: Status: Active Protocol: Document 10/26/20 08:52 HH (Rec: 10/26/20 09:44 HH [id number]) Functional Tests 6 Minute Walk Test Distance 986 Device Used no SPC Comments pt tripped twice his toe and almost fell and needed assistance to recover 30 Second Sit to Stand Test Score 7 Comments with arms pushed off from chair Timed Up and Go (TUG) Score 15s Comments pt slows down at turns d/t feeling unsteadiness. TUG Impairment Rating 40 to <60% Impaired (Score 14- 15) PT-OP-G Mobility & Gait Start: 06/02/20 18:24 Freq: Status: Active Protocol: Document 10/26/20 08:52 HH (Rec: 10/26/20 09:44 HH [id number]) Stair Climbing Evaluation Comments Stair Climbing Comments step over pattern for ascending with L rail step to pattern for descending with L rail PT-OP-H Neuro Start: 06/02/20 18:24 Freq: Status: Active Protocol: Document 06/03/20 09:46 LRN (Rec: 06/03/20 14:51 LRN [id number]) Sensation Evaluation Gross Sensation Gross Sensation Left LE Impaired Sensation Description Numbness,Pain Dermatome Impairments L4,L5,S1 Deep Tendon Reflex & Clonus Assessment Deep Tendon Reflex Left Achilles Deep Tendon Reflex 0 Absent Bilateral Patellar Deep Tendon Reflex 1+ Diminished PT-OP-J Posture/Palpation/Skin Start: 06/02/20 18:24 Freq: Status: Active Protocol: Document 06/03/20 09:46 LRN (Rec: 06/03/20 14:51 LRN [id number]) Posture Evaluation Position Standing Head/C-Spine Posture Forward Head L-Spine Posture Flattened Pelvis Posture Posterior Tilted Hip Posture (L) Flexed,(R) Flexed Palpation Assessment Location L TFL Palpation Location TFL Muscle belly Palpation Findings Tenderness L lateral hip Palpation Location Greater trochanter Palpation Findings Tenderness PT-OP-K Range of Motion Start: 06/02/20 18:24 Freq: Status: Active Protocol: Document 06/08/20 14:27 LRN (Rec: 06/08/20 15:30 LRN [id number]) Lumbar Spine Range of Motion Lumbar Spine Active Degrees Testing Position Standing Flexion 7 Extension 5 Lateral Flexion Left 10 Lateral Flexion Right 15 Comments Trunk flex: 5 hip flex Trunk ext: 5 hip ext PT-OP-L Special Tests Start: 06/02/20 18:24 Freq: Status: Active Protocol: Document 06/03/20 09:46 LRN (Rec: 06/03/20 14:51 LRN [id number]) Special Tests Lumbar Spine Special Tests Straight Leg Raise Test Results Neg bilaterally Comments Hamstring tightness Hip Special Tests AILEEN Test Results + R for anterior groin pain Comments Indicates 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 Indicates possible SIJ dysfunction. PT-OP-M Strength Start: 06/02/20 18:24 Freq: Status: Active Protocol: Document 08/30/20 09:54 HH (Rec: 08/30/20 10:30 HH [id number]) Hip Strength Hip Manual Muscle Testing Right Abduction 4- Good- PT-OP-Q Treatments Start: 06/02/20 18:24 Freq: Status: Active Protocol: Document 12/07/20 09:01 LD (Rec: 12/07/20 10:22 LD [id number]) Cardio Equipment Recumbent Bicycle Duration (Minutes) 6 Resistance 8 Seat Position 11 Other 1.43 miles Therapeutic Exercises Sitting Exercises seated ankle DF Sitting Exercise Name DF and PF Side bilateral Equipment Used half foam roller Reps/Minutes 4 min Standing Exercises calf raises Side bilateral Reps/Minutes 8 x2 Comments for HEP ankle board Standing Exercise Name DF and PF, lateral weight shift Side bilateral Equipment Used ankle board Reps/Minutes 4 min Comments cued for upright posture, carrying weight step up Standing Exercise Name step to pattern Equipment Used 8 step, rail Reps/Minutes 8x2 Comments CGA, cued for glute facilitation and upright posture Sit to Stand Equipment Used 18'' chair Reps/Minutes 10x Comments Cued for neutral spine, and bending at hips. Gait Training Gait Activity ground level Description with his running shoes. Surface ground level Distance/Duration 200 ft x 3 Comments 3 laps X 200 ft = 3min 13 secs More fatigued today. Cued for upright posture, and bringing weight forward of body w/ neutral pelvic alignment. PT-OP-T Assessment and Plan Start: 06/02/20 18:24 Freq: Status: Active Protocol: Document 12/07/20 09:01 LD (Rec: 12/07/20 10:22 LD [id number]) Physical Therapy Assessment Goals ankle strength Impairment R ankle DF =4-/5 Short Term Goal (STG) pt will reach 4+/5 for r ankle DF STG Duration 4 weeks Snf Goal (LTG) pt will reach 5/5 for R ankle DF pt will amb without toe drag to prevent fall risks. LTG Duration 8 weeks 6MWT Impairment 6 MWT Short Term Goal (STG) 11/09/20: 855 ft , break at 3rd min for 40 seconds. Toe dragged once. 6MWT Snf Goal (LTG) pt will reach 1000 ft for 6MWT without any toe drag/tripping episode LTG Duration 8 weeks 30 STS Impairment pt completed 7 times, 4 of them without armrest push offs . Short Term Goal (STG) 10/26/20 Pt is able to complete 7 times STS in 30 secs without using arms to push off. STG Duration 4 weeks [employer] Goal (LTG) 11/09/20 pt completed STS 7 times w/o armrests but with trunk lean pt will be able to complete 10 times STS in 30 secs with arm push offs. LTG Duration 8 weeks Four Impairment Decreased L hip strength (AB 2 +/5, AD 1/5) Short Term Goal (STG) Pt will be able to move in bed with tolerable pain. (07/19/20: No change in L hip strength) 08/30 L hip abd strength 4-/5 STG Duration 07/16/20 (07/19/20: Moving in bed pain is 7/10) Snf Goal (LTG) 08/30 Pt is able to ambulate stairs (step over 1 handrail) and level ground with confidence to return to dog walking with his . LTG Duration 10/01/20 Three Impairment Decreased balance, loss of balance on initial standing and after 5'. Short Term Goal (STG) Pt will be able to transfer sit to stand without fear of losing his balance, and decreased TUG score to 19 sec' s. (07/19/20: TUG score 20, improved from 24 initially. Pt is very aware and concerned with sit to stand loss of balance). STG Duration 07/16/20 (07/19/20: Improved) [employer] Goal (LTG) 10/26/20 TUG avg= 15s in 3 trials d/t weakness 08/30 goal met Pt is able to complete TUG in avg. 10.6 s in 3 trials. Decrease TUG time to 13-14 sec 's with pt able to stand > 5' without fear of loss of balance. LTG Duration 10/01/20 Two Impairment LLE pain from hip to foot rated 0-9/10, disturbing sleep . Short Term Goal (STG) 1/5 pt does not need to take any tylenol anymore Pt will reduce his need for Tylenol and will improve standing tolerance such that he will be able to exercise through an entire PT session. (07/19/20: Taking Tylenol in AM & PM and only 15% in afternoon, previously took AM & PM, and 2x at noon). STG Duration 07/16/20 (07/19/20: Progressing, pt rarely taking Tylenol at noon) Snf Goal (LTG) 08/30 Pt tool 2 tylenol for the entire week last week 08/30 goal met pt is able to sleep 6-8 hours in a daily basiss (07/19/20: Sleeps ~6 hrs, except last night had discomfort in the L hip and down lateral upper thigh). LTG Duration 10/01/20 (07/19/20: Sleeping ~6hrs with Tylenol) One Impairment Lacks appropriate self care HEP. [employer] Goal (LTG) Pt will be independent with a self care HEP. LTG Duration 10/01/20 (07/12/20: Progressing) Assessment Summary Assessment Pt presented w/ tiredness and achiness today. Tx focused on ROM, balance, and gait training, requiring verbal cues for glute facilitation, and upright posture awareness during step ups and sit to stand. Pt tolerated ankle board well, coninue w/ shuttle balance next tx. Pt unsteady at times during gait, cueing for forward weight shift over COG. Pt demonstrated improved balance and posture when leaving. Physical Therapy Plan Frequency and Duration Frequency of Treatment 1x/Week Duration of Treatment 8 weeks Plan of Care Start Date 10/26/20 Plan of Care End Date 12/25/20 Therapeutic Interventions Therapeutic Interventions Balance Training,Gait Training ,Home Exercise Program,Joint Mobilizations,Manual Therapy, Neuromuscular Re-education, Patient/Caregiver Education, Self-Care/Home Management,Soft Tissue Mobilization, Therapeutic Activities, Therapeutic Exercises Modalities Cold Pack/Ice Massage,Electric Stimulation,Hot Packs, Ultrasound Next Visit Focus/Plan Next Note Type Treatment Note Next Visit Plan Assess response to last tx: ROM, balance and gait training . Continue PT POC: focus, balance, walking for endurance training, gait training
--- NOTE | 2020-12-14 11:15 | PT.OTN ---
Current Diagnoses Osteoarthritis of hip, unspecified (12/14/20) Other intervertebral disc displacement, lumbosacral region (12/14/20) Muscle weakness (generalized) (12/14/20) Unsteadiness on feet (12/14/20) Physical Therapy Treatment Note PT-OP-A Visit Information Start: 06/02/20 18:24 Freq: Status: Active Protocol: Document 12/14/20 10:36 SP (Rec: 12/14/20 11:53 SP [id number]) Out-Patient Physical Therapy Visit Information Visit Information Visit Type Treatment Note Visit Note SHIPYARD HELPER 6 min late bringing pt back. Visit Start Time 10:36 Visit Stop Time 11:15 Total Visit Minutes 39 Visit Number 37 Number of SHIPYARD HELPER Visits 2 PT-OP-B Current Condition Start: 06/02/20 18:24 Freq: Status: Active Protocol: Document 06/03/20 09:46 LRN (Rec: 06/03/20 10:43 LRN [id number]) Current Condition History of Current Condition Onset Date 2.5 months Current Complaints L hip and leg pain, buttock to foot down lateral LE. History of Current Condition Pain onset insidious. States he has disc problems in the back and it was thought he had a pinched nerve. The injection provided relief for 1.5 days. Now he feels he is getting progressively worse. Getting up in the morning pain is 8-10/10 and lessens during the day to 3-4/10. After sitting for awhile (1 hr) after walking to the kitchen his pain increases. By bedtime pain is 6-10/10. Sleeps 4-5 hrs and then must get up due to the pain. Not able to take pain pills due to bowel problems. Takes Tylenol nightly and upon waking to help control the pain. Prior Treatments and Tests Dr. Bowen gave him a shot in the back and a week lateral to hip. Pain was a little better after the injections. Pain changed from 10 to 4. Future Testing and Treatments Planned Dr. Bowen follow up in July. Treatment Goals Patient/Caregiver Goals Pt goals: Walk dog with . Decrease pain to sleep 6-8 hrs peacefully without use of Tylenol. Decrease use of Tylenol for sleep. Prior Functional Status Baseline Function- ADL's Independent Baseline Function- Mobility Independent Baseline Function- Gait Pt able to walk without difficulty. Baseline Function- Other Not able to walk with to walk dog due to feeling of leg giving way. Able to sleep 6-8 hours per night. Current Functional Impairments (Reported) Functional Limitations- Mobility/Gait Pain with walking, not steady. Functional Limitations- Recreation/ Walked with to walk dog 1 Hobbies mile. 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 L knee has not been able to straighten for ~ 2 yrs. Current Dx (per history review ): Left herniated disc (L5-S1 ), Hip Osteoarthritis, Polymyalgia rheumatica, spondylosis of lumbar spine, and HTN. PT-OP-C Subjective Start: 06/02/20 18:24 Freq: Status: Active Protocol: Document 12/14/20 10:36 SP (Rec: 12/14/20 11:53 SP [id number]) OP-PT Subjective Patient Comments Patient Comments Pt arrived today with reports of sciatic nerve pain again , started yesterday 03/31 and hasn't had in a long time. PT-OP-D Balance Start: 06/02/20 18:24 Freq: Status: Active Protocol: Document 06/03/20 09:46 LRN (Rec: 06/03/20 16:33 LRN [id number]) OP-PT Balance Assessment Standing Balance Static Standing Balance Ability Poor Dynamic Standing Balance Ability Fair Standing Balance Comments Pt has loss of balance on initial standing, using plinth to stabilized at legs and snowden as standing time increases. Pt did not tolerate static standing for > 5' before pain in LLE caused him to request sitting. Alba Fall Scale Copyright Permission PT-OP-E Functional Tests Start: 06/02/20 18:24 Freq: Status: Active Protocol: Document 10/26/20 08:52 HH (Rec: 10/26/20 09:44 HH [id number]) Functional Tests 6 Minute Walk Test Distance 986 Device Used no SPC Comments pt tripped twice his toe and almost fell and needed assistance to recover 30 Second Sit to Stand Test Score 7 Comments with arms pushed off from chair Timed Up and Go (TUG) Score 15s Comments pt slows down at turns d/t feeling unsteadiness. TUG Impairment Rating 40 to <60% Impaired (Score 14- 15) PT-OP-G Mobility & Gait Start: 06/02/20 18:24 Freq: Status: Active Protocol: Document 10/26/20 08:52 HH (Rec: 10/26/20 09:44 HH [id number]) Stair Climbing Evaluation Comments Stair Climbing Comments step over pattern for ascending with L rail step to pattern for descending with L rail PT-OP-H Neuro Start: 06/02/20 18:24 Freq: Status: Active Protocol: Document 06/03/20 09:46 LRN (Rec: 06/03/20 14:51 LRN [id number]) Sensation Evaluation Gross Sensation Gross Sensation Left LE Impaired Sensation Description Numbness,Pain Dermatome Impairments L4,L5,S1 Deep Tendon Reflex & Clonus Assessment Deep Tendon Reflex Left Achilles Deep Tendon Reflex 0 Absent Bilateral Patellar Deep Tendon Reflex 1+ Diminished PT-OP-J Posture/Palpation/Skin Start: 06/02/20 18:24 Freq: Status: Active Protocol: Document 06/03/20 09:46 LRN (Rec: 06/03/20 14:51 LRN [id number]) Posture Evaluation Position Standing Head/C-Spine Posture Forward Head L-Spine Posture Flattened Pelvis Posture Posterior Tilted Hip Posture (L) Flexed,(R) Flexed Palpation Assessment Location L TFL Palpation Location TFL Muscle belly Palpation Findings Tenderness L lateral hip Palpation Location Greater trochanter Palpation Findings Tenderness PT-OP-K Range of Motion Start: 06/02/20 18:24 Freq: Status: Active Protocol: Document 06/08/20 14:27 LRN (Rec: 06/08/20 15:30 LRN [id number]) Lumbar Spine Range of Motion Lumbar Spine Active Degrees Testing Position Standing Flexion 7 Extension 5 Lateral Flexion Left 10 Lateral Flexion Right 15 Comments Trunk flex: 5 hip flex Trunk ext: 5 hip ext PT-OP-L Special Tests Start: 06/02/20 18:24 Freq: Status: Active Protocol: Document 06/03/20 09:46 LRN (Rec: 06/03/20 14:51 LRN [id number]) Special Tests Lumbar Spine Special Tests Straight Leg Raise Test Results Neg bilaterally Comments Hamstring tightness Hip Special Tests AILEEN Test Results + R for anterior groin pain Comments Indicates 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 Indicates possible SIJ dysfunction. PT-OP-M Strength Start: 06/02/20 18:24 Freq: Status: Active Protocol: Document 08/30/20 09:54 HH (Rec: 08/30/20 10:30 HH [id number]) Hip Strength Hip Manual Muscle Testing Right Abduction 4- Good- PT-OP-Q Treatments Start: 06/02/20 18:24 Freq: Status: Active Protocol: Document 12/14/20 10:36 SP (Rec: 12/14/20 11:53 SP [id number]) Therapeutic Exercises Supine Exercises Lateral hip stretch Supine Exercise Name ITB Side left Equipment Used strap assist Reps/Minutes 30 x2 LE Hamstring/neural stretch Supine Exercise Name Hamstring stretch Side bilateral Resistance manual then instruction self Equipment Used strap Reps/Minutes 30 each LE Comments cued knee ext awareness best can Piriformis stretch Supine Exercise Name IR, ER opposite knee to chest Side bilateral Resistance manual then instruction self Equipment Used BUE assist Reps/Minutes 30 each LE Comments opposite knee bent for LS comfort Standing Exercises self STMs racquetball roll at wall Standing Exercise Name glut Side left Reps/Minutes 1 min Comments pain free to pressure and time to perform with good feedback Self-Care/Home Management Treatment Education Patient Education Home Exercise Program,Joint Protection,Pain Management Other Education Review of self STMs and stretching, some were new to HEP when needed and others were review to apply to decreased pain and tightness. PT-OP-T Assessment and Plan Start: 06/02/20 18:24 Freq: Status: Active Protocol: Document 12/14/20 10:36 SP (Rec: 12/14/20 11:53 SP [id number]) Physical Therapy Assessment Goals ankle strength Impairment R ankle DF =4-/5 Short Term Goal (STG) pt will reach 4+/5 for r ankle DF STG Duration 4 weeks Jail Goal (LTG) pt will reach 5/5 for R ankle DF pt will amb without toe drag to prevent fall risks. LTG Duration 8 weeks 6MWT Impairment 6 MWT Short Term Goal (STG) 11/09/20: 855 ft , break at 3rd min for 40 seconds. Toe dragged once. 6MWT Jail Goal (LTG) pt will reach 1000 ft for 6MWT without any toe drag/tripping episode LTG Duration 8 weeks 30 STS Impairment pt completed 7 times, 4 of them without armrest push offs . Short Term Goal (STG) 10/26/20 Pt is able to complete 7 times STS in 30 secs without using arms to push off. STG Duration 4 weeks Jail Goal (LTG) 11/09/20 pt completed STS 7 times w/o armrests but with trunk lean pt will be able to complete 10 times STS in 30 secs with arm push offs. LTG Duration 8 weeks Four Impairment Decreased L hip strength (AB 2 +/5, AD 1/5) Short Term Goal (STG) Pt will be able to move in bed with tolerable pain. (07/19/20: No change in L hip strength) 08/30 L hip abd strength 4-/5 STG Duration 07/16/20 (07/19/20: Moving in bed pain is 7/10) Jail Goal (LTG) 08/30 Pt is able to ambulate stairs (step over 1 handrail) and level ground with confidence to return to dog walking with his . LTG Duration 10/01/20 Three Impairment Decreased balance, loss of balance on initial standing and after 5'. Short Term Goal (STG) Pt will be able to transfer sit to stand without fear of losing his balance, and decreased TUG score to 19 sec' s. (07/19/20: TUG score 20, improved from 24 initially. Pt is very aware and concerned with sit to stand loss of balance). STG Duration 07/16/20 (07/19/20: Improved) Jail Goal (LTG) 10/26/20 TUG avg= 15s in 3 trials d/t weakness 08/30 goal met Pt is able to complete TUG in avg. 10.6 s in 3 trials. Decrease TUG time to 13-14 sec 's with pt able to stand > 5' without fear of loss of balance. LTG Duration 10/01/20 Two Impairment LLE pain from hip to foot rated 0-9/10, disturbing sleep . Short Term Goal (STG) 10/26 pt does not need to take any tylenol anymore Pt will reduce his need for Tylenol and will improve standing tolerance such that he will be able to exercise through an entire PT session. (07/19/20: Taking Tylenol in AM & PM and only 15% in afternoon, previously took AM & PM, and 2x at noon). STG Duration 07/16/20 (07/19/20: Progressing, pt rarely taking Tylenol at noon) Jail Goal (LTG) 08/30 Pt tool 2 tylenol for the entire week last week 08/30 goal met pt is able to sleep 6-8 hours in a daily basiss (07/19/20: Sleeps ~6 hrs, except last night had discomfort in the L hip and down lateral upper thigh). LTG Duration 10/01/20 (07/19/20: Sleeping ~6hrs with Tylenol) One Impairment Lacks appropriate self care HEP. Jail Goal (LTG) Pt will be independent with a self care HEP. LTG Duration 10/01/20 (07/12/20: Progressing) Assessment Summary Assessment Tx focused on manual and self STMs then stretching manual then self use of yoga strap with handouts and scanned into chart with good tolerance. Pt stated his L hip felt alot better. My hip feels alot looser. Physical Therapy Plan Frequency and Duration Frequency of Treatment 1x/Week Duration of Treatment 8 weeks Plan of Care Start Date 10/26/20 Plan of Care End Date 12/25/20 Therapeutic Interventions Therapeutic Interventions Balance Training,Gait Training ,Home Exercise Program,Joint Mobilizations,Manual Therapy, Neuromuscular Re-education, Patient/Caregiver Education, Self-Care/Home Management,Soft Tissue Mobilization, Therapeutic Activities, Therapeutic Exercises Modalities Cold Pack/Ice Massage,Electric Stimulation,Hot Packs, Ultrasound Next Visit Focus/Plan Next Note Type Treatment Note Next Visit Plan Assess response to last tx: Manual, stretching, self instruction on performance at home to L hip. Continue PT POC: focus, balance, walking for endurance training, gait training
--- NOTE | 2020-12-21 10:48 | PT.OTN ---
Current Diagnoses Osteoarthritis of hip, unspecified (12/21/20) Other intervertebral disc displacement, lumbosacral region (12/21/20) Muscle weakness (generalized) (12/21/20) Unsteadiness on feet (12/21/20) Physical Therapy Treatment Note PT-OP-A Visit Information Start: 06/02/20 18:24 Freq: Status: Active Protocol: Document 12/21/20 09:51 HH (Rec: 12/21/20 10:47 HH [id number]) Out-Patient Physical Therapy Visit Information Visit Information Visit Type Progress Note Visit Start Time 09:50 Visit Stop Time 10:35 Total Visit Minutes 45 Visit Number 38 Number of DIGITAL EXPERIENCE MANAGER Visits 0 PT-OP-B Current Condition Start: 06/02/20 18:24 Freq: Status: Active Protocol: Document 06/03/20 09:46 LRN (Rec: 06/03/20 10:43 LRN [id number]) Current Condition History of Current Condition Onset Date 2.5 months Current Complaints L hip and leg pain, buttock to foot down lateral LE. History of Current Condition Pain onset insidious. States he has disc problems in the back and it was thought he had a pinched nerve. The injection provided relief for 1.5 days. Now he feels he is getting progressively worse. Getting up in the morning pain is 8-10/10 and lessens during the day to 3-4/10. After sitting for awhile (1 hr) after walking to the kitchen his pain increases. By bedtime pain is 6-10/10. Sleeps 4-5 hrs and then must get up due to the pain. Not able to take pain pills due to bowel problems. Takes Tylenol nightly and upon waking to help control the pain. Prior Treatments and Tests Dr. Bowen gave him a shot in the back and a week lateral to hip. Pain was a little better after the injections. Pain changed from 10 to 4. Future Testing and Treatments Planned Dr. oBwen follow up in July. Treatment Goals Patient/Caregiver Goals Pt goals: Walk dog with . Decrease pain to sleep 6-8 hrs peacefully without use of Tylenol. Decrease use of Tylenol for sleep. Prior Functional Status Baseline Function- ADL's Independent Baseline Function- Mobility Independent Baseline Function- Gait Pt able to walk without difficulty. Baseline Function- Other Not able to walk with to walk dog due to feeling of leg giving way. Able to sleep 6-8 hours per night. Current Functional Impairments (Reported) Functional Limitations- Mobility/Gait Pain with walking, not steady. Functional Limitations- Recreation/ Walked with to walk dog 1 Hobbies mile. 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 L knee has not been able to straighten for ~ 2 yrs. Current Dx (per history review ): Left herniated disc (L5-S1 ), Hip Osteoarthritis, Polymyalgia rheumatica, spondylosis of lumbar spine, and HTN. PT-OP-C Subjective Start: 06/02/20 18:24 Freq: Status: Active Protocol: Document 12/21/20 09:51 HH (Rec: 12/21/20 10:47 HH [id number]) OP-PT Subjective Patient Comments Patient Comments I dont know what happened last week cause my L hip starts hurting again and i couldnt believe this Patient Reported Progress Worse PT-OP-D Balance Start: 06/02/20 18:24 Freq: Status: Active Protocol: Document 06/03/20 09:46 LRN (Rec: 06/03/20 16:33 LRN [id number]) OP-PT Balance Assessment Standing Balance Static Standing Balance Ability Poor Dynamic Standing Balance Ability Fair Standing Balance Comments Pt has loss of balance on initial standing, using plinth to stabilized at legs and snowden as standing time increases. Pt did not tolerate static standing for > 5' before pain in LLE caused him to request sitting. Alba Fall Scale Copyright Permission PT-OP-E Functional Tests Start: 06/02/20 18:24 Freq: Status: Active Protocol: Document 10/26/20 08:52 HH (Rec: 10/26/20 09:44 HH [id number]) Functional Tests 6 Minute Walk Test Distance 986 Device Used no SPC Comments pt tripped twice his toe and almost fell and needed assistance to recover 30 Second Sit to Stand Test Score 7 Comments with arms pushed off from chair Timed Up and Go (TUG) Score 15s Comments pt slows down at turns d/t feeling unsteadiness. TUG Impairment Rating 40 to <60% Impaired (Score 14- 15) PT-OP-G Mobility & Gait Start: 06/02/20 18:24 Freq: Status: Active Protocol: Document 10/26/20 08:52 HH (Rec: 10/26/20 09:44 HH [id number]) Stair Climbing Evaluation Comments Stair Climbing Comments step over pattern for ascending with L rail step to pattern for descending with L rail PT-OP-H Neuro Start: 06/02/20 18:24 Freq: Status: Active Protocol: Document 06/03/20 09:46 LRN (Rec: 06/03/20 14:51 LRN [id number]) Sensation Evaluation Gross Sensation Gross Sensation Left LE Impaired Sensation Description Numbness,Pain Dermatome Impairments L4,L5,S1 Deep Tendon Reflex & Clonus Assessment Deep Tendon Reflex Left Achilles Deep Tendon Reflex 0 Absent Bilateral Patellar Deep Tendon Reflex 1+ Diminished PT-OP-J Posture/Palpation/Skin Start: 06/02/20 18:24 Freq: Status: Active Protocol: Document 06/03/20 09:46 LRN (Rec: 06/03/20 14:51 LRN [id number]) Posture Evaluation Position Standing Head/C-Spine Posture Forward Head L-Spine Posture Flattened Pelvis Posture Posterior Tilted Hip Posture (L) Flexed,(R) Flexed Palpation Assessment Location L TFL Palpation Location TFL Muscle belly Palpation Findings Tenderness L lateral hip Palpation Location Greater trochanter Palpation Findings Tenderness PT-OP-K Range of Motion Start: 06/02/20 18:24 Freq: Status: Active Protocol: Document 06/08/20 14:27 LRN (Rec: 06/08/20 15:30 LRN [id number]) Lumbar Spine Range of Motion Lumbar Spine Active Degrees Testing Position Standing Flexion 7 Extension 5 Lateral Flexion Left 10 Lateral Flexion Right 15 Comments Trunk flex: 5 hip flex Trunk ext: 5 hip ext PT-OP-L Special Tests Start: 06/02/20 18:24 Freq: Status: Active Protocol: Document 06/03/20 09:46 LRN (Rec: 06/03/20 14:51 LRN [id number]) Special Tests Lumbar Spine Special Tests Straight Leg Raise Test Results Neg bilaterally Comments Hamstring tightness Hip Special Tests AILEEN Test Results + R for anterior groin pain Comments Indicates 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 Indicates possible SIJ dysfunction. PT-OP-M Strength Start: 06/02/20 18:24 Freq: Status: Active Protocol: Document 08/30/20 09:54 HH (Rec: 08/30/20 10:30 HH [id number]) Hip Strength Hip Manual Muscle Testing Right Abduction 4- Good- PT-OP-Q Treatments Start: 06/02/20 18:24 Freq: Status: Active Protocol: Document 12/21/20 09:51 HH (Rec: 12/21/20 10:47 HH [id number]) Therapeutic Exercises Supine Exercises straight leg raise Supine Exercise Name passive up to 60 degrees Side left Reps/Minutes 10 sec x 5 x 2 Fig 4 stretch Side left Reps/Minutes 10sec x 5 x2 Comments pain reduced after Bridge Side bilateral Equipment Used yellow band around knees Reps/Minutes 8 x 2 supine hip ER Side left Equipment Used yellow band Reps/Minutes 10 x 2 Gait Training Gait Activity ground level Description with his running shoes. Surface ground level Distance/Duration 200 ft x 2 Comments 2 laps X 200 ft Pt shows improve weight acceptance on L side after therex and manual therapy but did show antalgic gait on L and worse on 2nd lap. Manual Therapy Treatment Soft Tissue Mobilization glutes and piriformis Mobilization Type Sustained Pressure,Trigger Point Release Intensity/Depth Moderate Body Position Sidelying Comments tenderness at distal gluteal muscle group and proximal hamstring Joint Mobilizations L hip Joint inferior Grade III Body Position Supine PT-OP-T Assessment and Plan Start: 06/02/20 18:24 Freq: Status: Active Protocol: Document 12/21/20 09:51 HH (Rec: 12/21/20 10:47 HH [id number]) Physical Therapy Assessment Goals ankle strength Impairment R ankle DF =4-/5 Short Term Goal (STG) pt will reach 4+/5 for r ankle DF STG Duration 4 weeks Electrical Research Engineer Goal (LTG) 3/2 goal met pt reach 5/5 for R ankle DF pt amb without toe drag currently LTG Duration 8 weeks 6MWT Impairment 6 MWT Short Term Goal (STG) 11/09/20: 855 ft , break at 3rd min for 40 seconds. Toe dragged once. 6MWT Electrical Research Engineer Goal (LTG) 3/2 unable to assess d/t recurrence for sciatic pain pt will reach 1000 ft for 6MWT without any toe drag/tripping episode LTG Duration 8 weeks 30 STS Impairment pt completed 7 times, 4 of them without armrest push offs . Short Term Goal (STG) 10/26/20 Pt is able to complete 7 times STS in 30 secs without using arms to push off. STG Duration 4 weeks Electrical Research Engineer Goal (LTG) 11/09/20 pt completed STS 7 times w/o armrests but with trunk lean 3/2 unable to assess d/t recurrence for sciatic pain pt will be able to complete 10 times STS in 30 secs with arm push offs. LTG Duration 8 weeks Four Impairment Decreased L hip strength (AB 2 +/5, AD 1/5) Short Term Goal (STG) Pt will be able to move in bed with tolerable pain. (07/19/20: No change in L hip strength) 08/30 L hip abd strength 4-/5 STG Duration 07/16/20 (07/19/20: Moving in bed pain is 7/10) Electrical Research Engineer Goal (LTG) 08/30 Pt is able to ambulate stairs (step over 1 handrail) and level ground with confidence to return to dog walking with his . LTG Duration 10/01/20 Three Impairment Decreased balance, loss of balance on initial standing and after 5'. Short Term Goal (STG) Pt will be able to transfer sit to stand without fear of losing his balance, and decreased TUG score to 19 sec' s. (07/19/20: TUG score 20, improved from 24 initially. Pt is very aware and concerned with sit to stand loss of balance). STG Duration 07/16/20 (07/19/20: Improved) [facility] Goal (LTG) 10/26/20 TUG avg= 15s in 3 trials d/t weakness 08/30 goal met Pt is able to complete TUG in avg. 10.6 s in 3 trials. 3/2 unable to assess d/t recurrence for sciatic pain Decrease TUG time to 13-14 sec 's with pt able to stand > 5' without fear of loss of balance. LTG Duration 10/01/20 Two Impairment LLE pain from hip to foot rated 0-9/10, disturbing sleep . Short Term Goal (STG) 10/26 pt does not need to take any tylenol anymore Pt will reduce his need for Tylenol and will improve standing tolerance such that he will be able to exercise through an entire PT session. (9/28/20: Taking Tylenol in AM & PM and only 15% in afternoon, previously took AM & PM, and 2x at noon). STG Duration 07/16/20 (07/19/20: Progressing, pt rarely taking Tylenol at noon) Electrical Research Engineer Goal (LTG) 08/30 Pt tool 2 tylenol for the entire week last week 08/30 goal met pt is able to sleep 6-8 hours in a daily basiss (07/19/20: Sleeps ~6 hrs, except last night had discomfort in the L hip and down lateral upper thigh). LTG Duration 10/01/20 (07/19/20: Sleeping ~6hrs with Tylenol) One Impairment Lacks appropriate self care HEP. Electrical Research Engineer Goal (LTG) Pt will be independent with a self care HEP. LTG Duration 10/01/20 (07/12/20: Progressing) Progress Towards Goals Progress Towards Goals Slow Progress - Other Assessment Summary Assessment Pt has a recurrence symptoms of L sciatic pain since last week which significant limits his mobility. However, pt;s R foot weakness is fully recovered now without foot drag during amb. Pt also feel better after with his sciatic pain after manual therapy and ther-ex. Pt will cont benefit from skilled therapy to address his recurrent L sciatica and assist him to fully return to his PLOF. Physical Therapy Plan Frequency and Duration Frequency of Treatment 1x/Week Duration of Treatment 10 weeks Plan of Care Start Date 12/21/20 Plan of Care End Date 03/06/21 Therapeutic Interventions Therapeutic Interventions Balance Training,Gait Training ,Home Exercise Program,Joint Mobilizations,Manual Therapy, Neuromuscular Re-education, Patient/Caregiver Education, Self-Care/Home Management,Soft Tissue Mobilization, Therapeutic Activities, Therapeutic Exercises Modalities Cold Pack/Ice Massage,Electric Stimulation,Hot Packs, Ultrasound Next Visit Focus/Plan Next Note Type Treatment Note Next Visit Plan Assess response to last tx: Manual, stretching, self instruction on performance at home to L hip. Continue PT POC: focus, balance, walking for endurance training, gait training
--- NOTE | 2020-12-28 11:22 | PT.OTN ---
Current Diagnoses Osteoarthritis of hip, unspecified (12/28/20) Other intervertebral disc displacement, lumbosacral region (12/28/20) Muscle weakness (generalized) (12/28/20) Unsteadiness on feet (12/28/20) Physical Therapy Treatment Note PT-OP-A Visit Information Start: 06/02/20 18:24 Freq: Status: Active Protocol: Document 12/28/20 10:36 SP (Rec: 12/28/20 11:39 SP [id number]) Out-Patient Physical Therapy Visit Information Visit Information Visit Type Treatment Note Visit Start Time 10:36 Visit Stop Time 11:22 Total Visit Minutes 46 Visit Number 39 Number of INSIDE BARREL POLISHER Visits 1 PT-OP-B Current Condition Start: 06/02/20 18:24 Freq: Status: Active Protocol: Document 06/03/20 09:46 LRN (Rec: 06/03/20 10:43 LRN [id number]) Current Condition History of Current Condition Onset Date 2.5 months Current Complaints L hip and leg pain, buttock to foot down lateral LE. History of Current Condition Pain onset insidious. States he has disc problems in the back and it was thought he had a pinched nerve. The injection provided relief for 1.5 days. Now he feels he is getting progressively worse. Getting up in the morning pain is 8-10/10 and lessens during the day to 3-4/10. After sitting for awhile (1 hr) after walking to the kitchen his pain increases. By bedtime pain is 6-10/10. Sleeps 4-5 hrs and then must get up due to the pain. Not able to take pain pills due to bowel problems. Takes Tylenol nightly and upon waking to help control the pain. Prior Treatments and Tests Dr. Bowen gave him a shot in the back and a week lateral to hip. Pain was a little better after the injections. Pain changed from 10 to 4. Future Testing and Treatments Planned Dr. Bowen follow up in July. Treatment Goals Patient/Caregiver Goals Pt goals: Walk dog with . Decrease pain to sleep 6-8 hrs peacefully without use of Tylenol. Decrease use of Tylenol for sleep. Prior Functional Status Baseline Function- ADL's Independent Baseline Function- Mobility Independent Baseline Function- Gait Pt able to walk without difficulty. Baseline Function- Other Not able to walk with to walk dog due to feeling of leg giving way. Able to sleep 6-8 hours per night. Current Functional Impairments (Reported) Functional Limitations- Mobility/Gait Pain with walking, not steady. Functional Limitations- Recreation/ Walked with to walk dog 1 Hobbies mile. 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 L knee has not been able to straighten for ~ 2 yrs. Current Dx (per history review ): Left herniated disc (L5-S1 ), Hip Osteoarthritis, Polymyalgia rheumatica, spondylosis of lumbar spine, and HTN. PT-OP-C Subjective Start: 06/02/20 18:24 Freq: Status: Active Protocol: Document 12/28/20 10:36 SP (Rec: 12/28/20 11:39 SP [id number]) OP-PT Subjective Patient Comments Patient Comments Pt arrived trunk flexed with decreased WB time on LLE with report having 7-8/10 sciatic pain that goes into his L hip/ leg and at times to his toes worse more in the evening that needs to take seated rest break to walk around house to be sure all locked up in stead of all at once then when get to bed in uncontrolled pain in LLE. Pt stated unsure if should call Dr Bowen again to check in. I thought this was gone away for good Requests to start with manual therapy first today. Patient Reported Progress Worse PT-OP-D Balance Start: 06/02/20 18:24 Freq: Status: Active Protocol: Document 06/03/20 09:46 LRN (Rec: 06/03/20 16:33 LRN [id number]) OP-PT Balance Assessment Standing Balance Static Standing Balance Ability Poor Dynamic Standing Balance Ability Fair Standing Balance Comments Pt has loss of balance on initial standing, using plinth to stabilized at legs and snowden as standing time increases. Pt did not tolerate static standing for > 5' before pain in LLE caused him to request sitting. Alba Fall Scale Copyright Permission PT-OP-E Functional Tests Start: 06/02/20 18:24 Freq: Status: Active Protocol: Document 10/26/20 08:52 HH (Rec: 10/26/20 09:44 HH [id number]) Functional Tests 6 Minute Walk Test Distance 986 Device Used no SPC Comments pt tripped twice his toe and almost fell and needed assistance to recover 30 Second Sit to Stand Test Score 7 Comments with arms pushed off from chair Timed Up and Go (TUG) Score 15s Comments pt slows down at turns d/t feeling unsteadiness. TUG Impairment Rating 40 to <60% Impaired (Score 14- 15) PT-OP-G Mobility & Gait Start: 06/02/20 18:24 Freq: Status: Active Protocol: Document 10/26/20 08:52 HH (Rec: 10/26/20 09:44 HH [id number]) Stair Climbing Evaluation Comments Stair Climbing Comments step over pattern for ascending with L rail step to pattern for descending with L rail PT-OP-H Neuro Start: 06/02/20 18:24 Freq: Status: Active Protocol: Document 06/03/20 09:46 LRN (Rec: 06/03/20 14:51 LRN [id number]) Sensation Evaluation Gross Sensation Gross Sensation Left LE Impaired Sensation Description Numbness,Pain Dermatome Impairments L4,L5,S1 Deep Tendon Reflex & Clonus Assessment Deep Tendon Reflex Left Achilles Deep Tendon Reflex 0 Absent Bilateral Patellar Deep Tendon Reflex 1+ Diminished PT-OP-J Posture/Palpation/Skin Start: 06/02/20 18:24 Freq: Status: Active Protocol: Document 06/03/20 09:46 LRN (Rec: 06/03/20 14:51 LRN [id number]) Posture Evaluation Position Standing Head/C-Spine Posture Forward Head L-Spine Posture Flattened Pelvis Posture Posterior Tilted Hip Posture (L) Flexed,(R) Flexed Palpation Assessment Location L TFL Palpation Location TFL Muscle belly Palpation Findings Tenderness L lateral hip Palpation Location Greater trochanter Palpation Findings Tenderness PT-OP-K Range of Motion Start: 06/02/20 18:24 Freq: Status: Active Protocol: Document 06/08/20 14:27 LRN (Rec: 06/08/20 15:30 LRN [id number]) Lumbar Spine Range of Motion Lumbar Spine Active Degrees Testing Position Standing Flexion 7 Extension 5 Lateral Flexion Left 10 Lateral Flexion Right 15 Comments Trunk flex: 5 hip flex Trunk ext: 5 hip ext PT-OP-L Special Tests Start: 06/02/20 18:24 Freq: Status: Active Protocol: Document 08/13/20 09:46 LRN (Rec: 08/13/20 14:51 LRN [id number]) Special Tests Lumbar Spine Special Tests Straight Leg Raise Test Results Neg bilaterally Comments Hamstring tightness Hip Special Tests AILEEN Test Results + R for anterior groin pain Comments Indicates 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 Indicates possible SIJ dysfunction. PT-OP-M Strength Start: 06/02/20 18:24 Freq: Status: Active Protocol: Document 08/30/20 09:54 HH (Rec: 08/30/20 10:30 HH [id number]) Hip Strength Hip Manual Muscle Testing Right Abduction 4- Good- PT-OP-Q Treatments Start: 06/02/20 18:24 Freq: Status: Active Protocol: Document 12/28/20 10:36 SP (Rec: 12/28/20 11:39 SP [id number]) Therapeutic Exercises Supine Exercises pelvic realignment ex Supine Exercise Name single leg pelvic lift, isometric Hs press 90/90 and adduction Side left Equipment Used added HEP for LLE leg pain relief Reps/Minutes 3 sec hold x5 each Comments good feedback response Manual Therapy Treatment Soft Tissue Mobilization L TFL Body Location L TFL & IT Band Mobilization Type Sustained Pressure,Trigger Point Release Intensity/Depth Superficial Body Position Sidelying glutes and piriformis Mobilization Type Sustained Pressure,Trigger Point Release Intensity/Depth Moderate Body Position Sidelying Comments tenderness at distal gluteal muscle group and proximal hamstring Nerve Glides SLR Nerve with knee extended at 60 degress then active DF/PF Body Position Supine Reps/Duration 10 ankle pump x3 sets Comments neural tension LLE lateral thigh/ calf, better post. Self-Care/Home Management Treatment Education Patient Education Home Exercise Program,Joint Protection,Pain Management, Posture Other Education Extra time spent manual therapist/ at home and self STMs using rolling stick/ ball discuss ball at wall and stretching, initiated pelvic realignment ex to assist decrease L hip pain with good feedback response 4-5/10 leaving. PT-OP-T Assessment and Plan Start: 06/02/20 18:24 Freq: Status: Active Protocol: Document 12/28/20 10:36 SP (Rec: 12/28/20 11:39 SP [id number]) Physical Therapy Assessment Goals ankle strength Impairment R ankle DF =4-/5 Short Term Goal (STG) pt will reach 4+/5 for r ankle DF STG Duration 4 weeks Senior Care Goal (LTG) 3/2 goal met pt reach 5/5 for R ankle DF pt amb without toe drag currently LTG Duration 8 weeks 6MWT Impairment 6 MWT Short Term Goal (STG) 11/09/20: 855 ft , break at 3rd min for 40 seconds. Toe dragged once. 6MWT Security Screener Goal (LTG) 3/2 unable to assess d/t recurrence for sciatic pain pt will reach 1000 ft for 6MWT without any toe drag/tripping episode LTG Duration 8 weeks 30 STS Impairment pt completed 7 times, 4 of them without armrest push offs . Short Term Goal (STG) 10/26/20 Pt is able to complete 7 times STS in 30 secs without using arms to push off. STG Duration 4 weeks Senior Care Goal (LTG) 11/09/20 pt completed STS 7 times w/o armrests but with trunk lean 3/2 unable to assess d/t recurrence for sciatic pain pt will be able to complete 10 times STS in 30 secs with arm push offs. LTG Duration 8 weeks Four Impairment Decreased L hip strength (AB 2 +/5, AD 1/5) Short Term Goal (STG) Pt will be able to move in bed with tolerable pain. (07/19/20: No change in L hip strength) 08/30 L hip abd strength 4-/5 STG Duration 07/16/20 (07/19/20: Moving in bed pain is 7/10) Senior Care Goal (LTG) 08/30 Pt is able to ambulate stairs (step over 1 handrail) and level ground with confidence to return to dog walking with his . LTG Duration 10/01/20 Three Impairment Decreased balance, loss of balance on initial standing and after 5'. Short Term Goal (STG) Pt will be able to transfer sit to stand without fear of losing his balance, and decreased TUG score to 19 sec' s. (07/19/20: TUG score 20, improved from 24 initially. Pt is very aware and concerned with sit to stand loss of balance). STG Duration 07/16/20 (07/19/20: Improved) Security Screener Goal (LTG) 10/26/20 TUG avg= 15s in 3 trials d/t weakness 08/30 goal met Pt is able to complete TUG in avg. 10.6 s in 3 trials. 3/2 unable to assess d/t recurrence for sciatic pain Decrease TUG time to 13-14 sec 's with pt able to stand > 5' without fear of loss of balance. LTG Duration 10/01/20 Two Impairment LLE pain from hip to foot rated 0-9/10, disturbing sleep . Short Term Goal (STG) 1/ pt does not need to take any tylenol anymore Pt will reduce his need for Tylenol and will improve standing tolerance such that he will be able to exercise through an entire PT session. (07/19/20: Taking Tylenol in AM & PM and only 15% in afternoon, previously took AM & PM, and 2x at noon). STG Duration 07/16/20 (07/19/20: Progressing, pt rarely taking Tylenol at noon) Security Screener Goal (LTG) 08/30 Pt tool 2 tylenol for the entire week last week 08/30 goal met pt is able to sleep 6-8 hours in a daily basiss (07/19/20: Sleeps ~6 hrs, except last night had discomfort in the L hip and down lateral upper thigh). LTG Duration 10/01/20 (07/19/20: Sleeping ~6hrs with Tylenol) One Impairment Lacks appropriate self care HEP. Security Screener Goal (LTG) Pt will be independent with a self care HEP. LTG Duration 10/01/20 (07/12/20: Progressing) Assessment Summary Assessment Pt responded well to tx, focus on decrease pain manual and with instrument rolling stick [employer]raband [employer] and gave hand out for home per pt request. Reviewed sciatic nerve glides and initiated pelvic realignment exercise to allow assess decrease L hip pain with good response. Pt was walking taller with increased step length and hip ext. Physical Therapy Plan Frequency and Duration Frequency of Treatment 1x/Week Duration of Treatment 10 weeks Plan of Care Start Date 12/21/20 Plan of Care End Date 03/06/21 Therapeutic Interventions Therapeutic Interventions Balance Training,Gait Training ,Home Exercise Program,Joint Mobilizations,Manual Therapy, Neuromuscular Re-education, Patient/Caregiver Education, Self-Care/Home Management,Soft Tissue Mobilization, Therapeutic Activities, Therapeutic Exercises Modalities Cold Pack/Ice Massage,Electric Stimulation,Hot Packs, Ultrasound Next Visit Focus/Plan Next Note Type Treatment Note Next Visit Plan Assess response to last tx: Manual/ self STMs, sciatic nerve glide,initiated pelvic align ex. Continue PT POC: focus, balance, walking for endurance training, gait training
--- NOTE | 2021-01-04 10:32 | PT.OTN ---
Current Diagnoses Osteoarthritis of hip, unspecified (01/04/21) Other intervertebral disc displacement, lumbosacral region (01/04/21) Muscle weakness (generalized) (01/04/21) Unsteadiness on feet (01/04/21) Physical Therapy Treatment Note PT-OP-A Visit Information Start: 06/02/20 18:24 Freq: Status: Active Protocol: Document 01/04/21 09:49 HH (Rec: 01/04/21 10:30 HH [id number]) Out-Patient Physical Therapy Visit Information Visit Information Visit Type Treatment Note Visit Start Time 09:49 Visit Stop Time 10:30 Total Visit Minutes 41 Visit Number 41 Number of MEAT CURER Visits 0 PT-OP-B Current Condition Start: 06/02/20 18:24 Freq: Status: Active Protocol: Document 06/03/20 09:46 LRN (Rec: 06/03/20 10:43 LRN [id number]) Current Condition History of Current Condition Onset Date 2.5 months Current Complaints L hip and leg pain, buttock to foot down lateral LE. History of Current Condition Pain onset insidious. States he has disc problems in the back and it was thought he had a pinched nerve. The injection provided relief for 1.5 days. Now he feels he is getting progressively worse. Getting up in the morning pain is 8-10/10 and lessens during the day to 3-4/10. After sitting for awhile (1 hr) after walking to the kitchen his pain increases. By bedtime pain is 6-10/10. Sleeps 4-5 hrs and then must get up due to the pain. Not able to take pain pills due to bowel problems. Takes Tylenol nightly and upon waking to help control the pain. Prior Treatments and Tests Dr. Bowen gave him a shot in the back and a week lateral to hip. Pain was a little better after the injections. Pain changed from 10 to 4. Future Testing and Treatments Planned Dr. Bowen follow up in July. Treatment Goals Patient/Caregiver Goals Pt goals: Walk dog with . Decrease pain to sleep 6-8 hrs peacefully without use of Tylenol. Decrease use of Tylenol for sleep. Prior Functional Status Baseline Function- ADL's Independent Baseline Function- Mobility Independent Baseline Function- Gait Pt able to walk without difficulty. Baseline Function- Other Not able to walk with to walk dog due to feeling of leg giving way. Able to sleep 6-8 hours per night. Current Functional Impairments (Reported) Functional Limitations- Mobility/Gait Pain with walking, not steady. Functional Limitations- Recreation/ Walked with to walk dog 1 Hobbies mile. 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 L knee has not been able to straighten for ~ 2 yrs. Current Dx (per history review ): Left herniated disc (L5-S1 ), Hip Osteoarthritis, Polymyalgia rheumatica, spondylosis of lumbar spine, and HTN. PT-OP-C Subjective Start: 06/02/20 18:24 Freq: Status: Active Protocol: Document 01/04/21 09:49 HH (Rec: 01/04/21 10:30 HH [id number]) OP-PT Subjective Patient Comments Patient Comments I got better with my L hip ( pain 5-6/10) but it still bothers me. I have trouble sleeping lately. getting in and out of the bed is the hardest. Patient Reported Progress Improving PT-OP-D Balance Start: 06/02/20 18:24 Freq: Status: Active Protocol: Document 06/03/20 09:46 LRN (Rec: 06/03/20 16:33 LRN [id number]) OP-PT Balance Assessment Standing Balance Static Standing Balance Ability Poor Dynamic Standing Balance Ability Fair Standing Balance Comments Pt has loss of balance on initial standing, using plinth to stabilized at legs and snowden as standing time increases. Pt did not tolerate static standing for > 5' before pain in LLE caused him to request sitting. Alba Fall Scale Copyright Permission PT-OP-E Functional Tests Start: 06/02/20 18:24 Freq: Status: Active Protocol: Document 10/26/20 08:52 HH (Rec: 10/26/20 09:44 HH [id number]) Functional Tests 6 Minute Walk Test Distance 986 Device Used no SPC Comments pt tripped twice his toe and almost fell and needed assistance to recover 30 Second Sit to Stand Test Score 7 Comments with arms pushed off from chair Timed Up and Go (TUG) Score 15s Comments pt slows down at turns d/t feeling unsteadiness. TUG Impairment Rating 40 to <60% Impaired (Score 14- 15) PT-OP-G Mobility & Gait Start: 06/02/20 18:24 Freq: Status: Active Protocol: Document 10/26/20 08:52 HH (Rec: 10/26/20 09:44 HH [id number]) Stair Climbing Evaluation Comments Stair Climbing Comments step over pattern for ascending with L rail step to pattern for descending with L rail PT-OP-H Neuro Start: 06/02/20 18:24 Freq: Status: Active Protocol: Document 06/03/20 09:46 LRN (Rec: 06/03/20 14:51 LRN [id number]) Sensation Evaluation Gross Sensation Gross Sensation Left LE Impaired Sensation Description Numbness,Pain Dermatome Impairments L4,L5,S1 Deep Tendon Reflex & Clonus Assessment Deep Tendon Reflex Left Achilles Deep Tendon Reflex 0 Absent Bilateral Patellar Deep Tendon Reflex 1+ Diminished PT-OP-J Posture/Palpation/Skin Start: 06/02/20 18:24 Freq: Status: Active Protocol: Document 06/03/20 09:46 LRN (Rec: 06/03/20 14:51 LRN [id number]) Posture Evaluation Position Standing Head/C-Spine Posture Forward Head L-Spine Posture Flattened Pelvis Posture Posterior Tilted Hip Posture (L) Flexed,(R) Flexed Palpation Assessment Location L TFL Palpation Location TFL Muscle belly Palpation Findings Tenderness L lateral hip Palpation Location Greater trochanter Palpation Findings Tenderness PT-OP-K Range of Motion Start: 06/02/20 18:24 Freq: Status: Active Protocol: Document 06/08/20 14:27 LRN (Rec: 06/08/20 15:30 LRN [id number]) Lumbar Spine Range of Motion Lumbar Spine Active Degrees Testing Position Standing Flexion 7 Extension 5 Lateral Flexion Left 10 Lateral Flexion Right 15 Comments Trunk flex: 5 hip flex Trunk ext: 5 hip ext PT-OP-L Special Tests Start: 06/02/20 18:24 Freq: Status: Active Protocol: Document 06/03/20 09:46 LRN (Rec: 06/03/20 14:51 LRN [id number]) Special Tests Lumbar Spine Special Tests Straight Leg Raise Test Results Neg bilaterally Comments Hamstring tightness Hip Special Tests AILEEN Test Results + R for anterior groin pain Comments Indicates 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 Indicates possible SIJ dysfunction. PT-OP-M Strength Start: 06/02/20 18:24 Freq: Status: Active Protocol: Document 08/30/20 09:54 HH (Rec: 08/30/20 10:30 [id number]) Hip Strength Hip Manual Muscle Testing Right Abduction 4- Good- PT-OP-Q Treatments Start: 06/02/20 18:24 Freq: Status: Active Protocol: Document 01/04/21 09:49 HH (Rec: 01/04/21 10:30 [id number]) Therapeutic Exercises Supine Exercises pelvic realignment ex Supine Exercise Name single leg pelvic lift, isometric Hs press 90/90 and adduction Side left Equipment Used added HEP for LLE leg pain relief Reps/Minutes 3 sec hold x5 each Comments good feedback response straight leg raise Supine Exercise Name passive up to 85 degrees Side left Reps/Minutes 10 sec x 5 x 2 Fig 4 stretch Side left Reps/Minutes 10sec x 5 x2 Piriformis stretch Side left Reps/Minutes 10 sec x 5 Bridge Side bilateral Equipment Used yellow band around knees Reps/Minutes 8 x 2 Comments no pain noted supine hip ER Supine Exercise Name unilateral Side left Equipment Used yellow band Reps/Minutes 10 x 2 Standing Exercises step up Side bilateral Reps/Minutes 10 x2 Comments no discomfort noted. Gait Training Gait Activity ground level Description with his running shoes. Surface ground level Distance/Duration 200 ft x 2 Comments 2 laps X 200 ft Pt shows improve weight acceptance on L side today Manual Therapy Treatment Soft Tissue Mobilization L TFL Body Location L TFL & IT Band Mobilization Type Sustained Pressure,Trigger Point Release Intensity/Depth Superficial Body Position Sidelying glutes and piriformis Mobilization Type Sustained Pressure,Trigger Point Release Intensity/Depth Moderate Body Position Sidelying Comments tenderness at distal gluteal muscle group and proximal hamstring Joint Mobilizations L hip Joint inferior Grade III Body Position Supine PT-OP-T Assessment and Plan Start: 06/02/20 18:24 Freq: Status: Active Protocol: Document 01/04/21 09:49 HH (Rec: 01/04/21 10:30 [id number]) Physical Therapy Assessment Goals ankle strength Impairment R ankle DF =4-/5 Short Term Goal (STG) pt will reach 4+/5 for r ankle DF STG Duration 4 weeks Physics Teacher Goal (LTG) 3/2 goal met pt reach 5/5 for R ankle DF pt amb without toe drag currently LTG Duration 8 weeks 6MWT Impairment 6 MWT Short Term Goal (STG) 11/09/20: 855 ft , break at 3rd min for 40 seconds. Toe dragged once. 6MWT [facility] Goal (LTG) 3/2 unable to assess d/t recurrence for sciatic pain pt will reach 1000 ft for 6MWT without any toe drag/tripping episode LTG Duration 8 weeks 30 STS Impairment pt completed 7 times, 4 of them without armrest push offs . Short Term Goal (STG) 10/26/20 Pt is able to complete 7 times STS in 30 secs without using arms to push off. STG Duration 4 weeks Physics Teacher Goal (LTG) 11/09/20 pt completed STS 7 times w/o armrests but with trunk lean 3/2 unable to assess d/t recurrence for sciatic pain pt will be able to complete 10 times STS in 30 secs with arm push offs. LTG Duration 8 weeks Assessment Summary Assessment Pt shows improved symptoms and mobility today. He was able to walk with improved weight acceptance on LLE. Physical Therapy Plan Frequency and Duration Frequency of Treatment 1x/Week Duration of Treatment 10 weeks Plan of Care Start Date 12/21/20 Plan of Care End Date 03/06/21 Next Visit Focus/Plan Next Note Type Treatment Note Next Visit Plan Assess response to last tx: Manual/ self STMs, sciatic nerve glide,initiated pelvic align ex. Continue PT POC: focus, balance, walking for endurance training, gait training
--- NOTE | 2021-01-11 10:35 | PT.OTN ---
Current Diagnoses Osteoarthritis of hip, unspecified (01/11/21) Other intervertebral disc displacement, lumbosacral region (01/11/21) Muscle weakness (generalized) (01/11/21) Unsteadiness on feet (01/11/21) Physical Therapy Treatment Note PT-OP-A Visit Information Start: 06/02/20 18:24 Freq: Status: Active Protocol: Document 01/11/21 09:56 SP (Rec: 01/11/21 11:47 SP [id number]) Out-Patient Physical Therapy Visit Information Visit Information Visit Type Treatment Note Visit Start Time 09:51 Visit Stop Time 10:35 Total Visit Minutes 44 Visit Number 41 Number of FACSIMILE OPERATOR Visits 0 PT-OP-B Current Condition Start: 06/02/20 18:24 Freq: Status: Active Protocol: Document 06/03/20 09:46 LRN (Rec: 06/03/20 10:43 LRN [id number]) Current Condition History of Current Condition Onset Date 2.5 months Current Complaints L hip and leg pain, buttock to foot down lateral LE. History of Current Condition Pain onset insidious. States he has disc problems in the back and it was thought he had a pinched nerve. The injection provided relief for 1.5 days. Now he feels he is getting progressively worse. Getting up in the morning pain is 8-10/10 and lessens during the day to 3-4/10. After sitting for awhile (1 hr) after walking to the kitchen his pain increases. By bedtime pain is 6-10/10. Sleeps 4-5 hrs and then must get up due to the pain. Not able to take pain pills due to bowel problems. Takes Tylenol nightly and upon waking to help control the pain. Prior Treatments and Tests Dr. Bowen gave him a shot in the back and a week lateral to hip. Pain was a little better after the injections. Pain changed from 10 to 4. Future Testing and Treatments Planned Dr. Bowen follow up in July. Treatment Goals Patient/Caregiver Goals Pt goals: Walk dog with . Decrease pain to sleep 6-8 hrs peacefully without use of Tylenol. Decrease use of Tylenol for sleep. Prior Functional Status Baseline Function- ADL's Independent Baseline Function- Mobility Independent Baseline Function- Gait Pt able to walk without difficulty. Baseline Function- Other Not able to walk with to walk dog due to feeling of leg giving way. Able to sleep 6-8 hours per night. Current Functional Impairments (Reported) Functional Limitations- Mobility/Gait Pain with walking, not steady. Functional Limitations- Recreation/ Walked with to walk dog 1 Hobbies mile. 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 L knee has not been able to straighten for ~ 2 yrs. Current Dx (per history review ): Left herniated disc (L5-S1 ), Hip Osteoarthritis, Polymyalgia rheumatica, spondylosis of lumbar spine, and HTN. PT-OP-C Subjective Start: 06/02/20 18:24 Freq: Status: Active Protocol: Document 01/11/21 09:56 SP (Rec: 01/11/21 11:47 SP [id number]) OP-PT Subjective Patient Comments Patient Comments Pt stated the sciatic comes and goes, L knee still has pain but able to walk more, not sure if want to have it recheck with orthopedic. Patient Reported Progress Improving PT-OP-D Balance Start: 06/02/20 18:24 Freq: Status: Active Protocol: Document 06/03/20 09:46 LRN (Rec: 06/03/20 16:33 LRN [id number]) OP-PT Balance Assessment Standing Balance Static Standing Balance Ability Poor Dynamic Standing Balance Ability Fair Standing Balance Comments Pt has loss of balance on initial standing, using plinth to stabilized at legs and snowden as standing time increases. Pt did not tolerate static standing for > 5' before pain in LLE caused him to request sitting. Alba Fall Scale Copyright Permission PT-OP-E Functional Tests Start: 06/02/20 18:24 Freq: Status: Active Protocol: Document 10/26/20 08:52 HH (Rec: 10/26/20 09:44 HH [id number]) Functional Tests 6 Minute Walk Test Distance 986 Device Used no SPC Comments pt tripped twice his toe and almost fell and needed assistance to recover 30 Second Sit to Stand Test Score 7 Comments with arms pushed off from chair Timed Up and Go (TUG) Score 15s Comments pt slows down at turns d/t feeling unsteadiness. TUG Impairment Rating 40 to <60% Impaired (Score 14- 15) PT-OP-G Mobility & Gait Start: 08/12/20 18:24 Freq: Status: Active Protocol: Document 10/26/20 08:52 HH (Rec: 10/26/20 09:44 HH [id number]) Stair Climbing Evaluation Comments Stair Climbing Comments step over pattern for ascending with L rail step to pattern for descending with L rail PT-OP-H Neuro Start: 06/02/20 18:24 Freq: Status: Active Protocol: Document 06/03/20 09:46 LRN (Rec: 06/03/20 14:51 LRN [id number]) Sensation Evaluation Gross Sensation Gross Sensation Left LE Impaired Sensation Description Numbness,Pain Dermatome Impairments L4,L5,S1 Deep Tendon Reflex & Clonus Assessment Deep Tendon Reflex Left Achilles Deep Tendon Reflex 0 Absent Bilateral Patellar Deep Tendon Reflex 1+ Diminished PT-OP-J Posture/Palpation/Skin Start: 06/02/20 18:24 Freq: Status: Active Protocol: Document 06/03/20 09:46 LRN (Rec: 06/03/20 14:51 LRN [id number]) Posture Evaluation Position Standing Head/C-Spine Posture Forward Head L-Spine Posture Flattened Pelvis Posture Posterior Tilted Hip Posture (L) Flexed,(R) Flexed Palpation Assessment Location L TFL Palpation Location TFL Muscle belly Palpation Findings Tenderness L lateral hip Palpation Location Greater trochanter Palpation Findings Tenderness PT-OP-K Range of Motion Start: 06/02/20 18:24 Freq: Status: Active Protocol: Document 06/08/20 14:27 LRN (Rec: 06/08/20 15:30 LRN [id number]) Lumbar Spine Range of Motion Lumbar Spine Active Degrees Testing Position Standing Flexion 7 Extension 5 Lateral Flexion Left 10 Lateral Flexion Right 15 Comments Trunk flex: 5 hip flex Trunk ext: 5 hip ext PT-OP-L Special Tests Start: 06/02/20 18:24 Freq: Status: Active Protocol: Document 06/03/20 09:46 LRN (Rec: 06/03/20 14:51 LRN [id number]) Special Tests Lumbar Spine Special Tests Straight Leg Raise Test Results Neg bilaterally Comments Hamstring tightness Hip Special Tests AILEEN Test Results + R for anterior groin pain Comments Indicates 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 Indicates possible SIJ dysfunction. PT-OP-M Strength Start: 06/02/20 18:24 Freq: Status: Active Protocol: Document 08/30/20 09:54 HH (Rec: 08/30/20 10:30 HH [id number]) Hip Strength Hip Manual Muscle Testing Right Abduction 4- Good- PT-OP-Q Treatments Start: 06/02/20 18:24 Freq: Status: Active Protocol: Document 01/11/21 09:56 SP (Rec: 01/11/21 11:47 SP [id number]) Cardio Equipment Recumbent Bicycle Duration (Minutes) 6 Resistance 7 Seat Position 9 Other 1.56 miles, 48 RPM Gym Equipment Shuttle Recovery uni squat Details cued knee alignment w/ behind toes Resistance 37# Shuttle Recovery Platform Stable Reps/Time 10 x2 B squat Details cued knee alignment w/ behind toes Resistance #75 Shuttle Recovery Platform Stable Reps/Time 2 sets 20 for warm up. Therapeutic Exercises Sitting Exercises Hamstring stretch Sitting Exercise Name reviewed and decreased L knee/ hip tightness Side left Equipment Used 30 Comments hip hinge straight back Hip rotator stretch Sitting Exercise Name hip IR/ ER, Side left Reps/Minutes [address] chair tall posture Gait Training Gait Activity heel toe gait Description foot clearance/ posture Device Used none Level of Assistance S Surface ground level Distance/Duration 80 ft hallway x2 laps Treatment Focus heel toe gait, longer strides knee ext, scap ret/ tall post shld ovr pelvis Neuro Re-Education Treatment Balance Activities francis stepping Details step to gait Surface stable Equipment 6 hurdles Reps/Duration 2 laps forward Comments min A 20 % Aw/ gait belt and PRN UE lateral assist> Low min 15%A at GB last lap staggered stance Surface stable Equipment PRN contact rail Reps/Duration 5 min total Comments 1.head turns 2.EC unable, unsteady CG- Min - better RLE forward pos Cued upright posture scap retract, core and glut facilitation with BLE even wt distributed improved hip hinge shld over pelvis PT-OP-T Assessment and Plan Start: 06/02/20 18:24 Freq: Status: Active Protocol: Document 01/11/21 09:56 SP (Rec: 01/11/21 11:47 SP [id number]) Physical Therapy Assessment Goals ankle strength Impairment R ankle DF =4-/5 Short Term Goal (STG) pt will reach 4+/5 for r ankle DF STG Duration 4 weeks Hog Grader Goal (LTG) 3/2 goal met pt reach 5/5 for R ankle DF pt amb without toe drag currently LTG Duration 8 weeks 6MWT Impairment 6 MWT Short Term Goal (STG) 11/09/20: 855 ft , break at 3rd min for 40 seconds. Toe dragged once. 6MWT Hog Grader Goal (LTG) 3/2 unable to assess d/t recurrence for sciatic pain pt will reach 1000 ft for 6MWT without any toe drag/tripping episode LTG Duration 8 weeks 30 STS Impairment pt completed 7 times, 4 of them without armrest push offs . Short Term Goal (STG) 10/26/20 Pt is able to complete 7 times STS in 30 secs without using arms to push off. STG Duration 4 weeks Hog Grader Goal (LTG) 11/09/20 pt completed STS 7 times w/o armrests but with trunk lean 3/2 unable to assess d/t recurrence for sciatic pain pt will be able to complete 10 times STS in 30 secs with arm push offs. LTG Duration 8 weeks Assessment Summary Assessment Pt improved with hip and core stabilization and fuctional strengthening during tx today with noted decreased support during hurdles and increased stance time with more self posturall corrections. Gait quality improvement of foot clearance, stride and trunk posturing post cuing. End of tx L hip was irritated but lesened post stretching review . Physical Therapy Plan Frequency and Duration Frequency of Treatment 1x/Week Duration of Treatment 10 weeks Plan of Care Start Date 12/21/20 Plan of Care End Date 03/06/21 Therapeutic Interventions Therapeutic Interventions Balance Training,Gait Training ,Home Exercise Program,Joint Mobilizations,Manual Therapy, Neuromuscular Re-education, Patient/Caregiver Education, Self-Care/Home Management,Soft Tissue Mobilization, Therapeutic Activities, Therapeutic Exercises Modalities Cold Pack/Ice Massage,Electric Stimulation,Hot Packs, Ultrasound Next Visit Focus/Plan Next Note Type Treatment Note Next Visit Plan Assess response to last tx: balance, LE strengthening. Continue PT POC: focus, balance, walking for endurance training, gait training
--- NOTE | 2021-01-18 10:29 | PT.OTN ---
Current Diagnoses Osteoarthritis of hip, unspecified (01/18/21) Other intervertebral disc displacement, lumbosacral region (01/18/21) Muscle weakness (generalized) (01/18/21) Unsteadiness on feet (01/18/21) Physical Therapy Treatment Note PT-OP-A Visit Information Start: 06/02/20 18:24 Freq: Status: Active Protocol: Document 01/18/21 09:47 HH (Rec: 01/18/21 10:29 HH [id number]) Out-Patient Physical Therapy Visit Information Visit Information Visit Type Progress Note Visit Start Time 09:48 Visit Stop Time 10:30 Total Visit Minutes 42 Visit Number 42 Number of SCRAP BALER Visits 0 PT-OP-B Current Condition Start: 06/02/20 18:24 Freq: Status: Active Protocol: Document 06/03/20 09:46 LRN (Rec: 06/03/20 10:43 LRN [id number]) Current Condition History of Current Condition Onset Date 2.5 months Current Complaints L hip and leg pain, buttock to foot down lateral LE. History of Current Condition Pain onset insidious. States he has disc problems in the back and it was thought he had a pinched nerve. The injection provided relief for 1.5 days. Now he feels he is getting progressively worse. Getting up in the morning pain is 8-10/10 and lessens during the day to 3-4/10. After sitting for awhile (1 hr) after walking to the kitchen his pain increases. By bedtime pain is 6-10/10. Sleeps 4-5 hrs and then must get up due to the pain. Not able to take pain pills due to bowel problems. Takes Tylenol nightly and upon waking to help control the pain. Prior Treatments and Tests Dr. Bowen gave him a shot in the back and a week lateral to hip. Pain was a little better after the injections. Pain changed from 10 to 4. Future Testing and Treatments Planned Dr. Bowen follow up in July. Treatment Goals Patient/Caregiver Goals Pt goals: Walk dog with . Decrease pain to sleep 6-8 hrs peacefully without use of Tylenol. Decrease use of Tylenol for sleep. Prior Functional Status Baseline Function- ADL's Independent Baseline Function- Mobility Independent Baseline Function- Gait Pt able to walk without difficulty. Baseline Function- Other Not able to walk with to walk dog due to feeling of leg giving way. Able to sleep 6-8 hours per night. Current Functional Impairments (Reported) Functional Limitations- Mobility/Gait Pain with walking, not steady. Functional Limitations- Recreation/ Walked with to walk dog 1 Hobbies mile. 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 L knee has not been able to straighten for ~ 2 yrs. Current Dx (per history review ): Left herniated disc (L5-S1 ), Hip Osteoarthritis, Polymyalgia rheumatica, spondylosis of lumbar spine, and HTN. PT-OP-C Subjective Start: 06/02/20 18:24 Freq: Status: Active Protocol: Document 01/18/21 09:47 HH (Rec: 01/18/21 10:29 HH [id number]) OP-PT Subjective Patient Comments Patient Comments Im getting better and able to get aorund now Patient Reported Progress Improving PT-OP-D Balance Start: 06/02/20 18:24 Freq: Status: Active Protocol: Document 06/03/20 09:46 LRN (Rec: 06/03/20 16:33 LRN [id number]) OP-PT Balance Assessment Standing Balance Static Standing Balance Ability Poor Dynamic Standing Balance Ability Fair Standing Balance Comments Pt has loss of balance on initial standing, using plinth to stabilized at legs and snowden as standing time increases. Pt did not tolerate static standing for > 5' before pain in LLE caused him to request sitting. Alba Fall Scale Copyright Permission PT-OP-E Functional Tests Start: 06/02/20 18:24 Freq: Status: Active Protocol: Document 10/26/20 08:52 HH (Rec: 10/26/20 09:44 HH [id number]) Functional Tests 6 Minute Walk Test Distance 986 Device Used no SPC Comments pt tripped twice his toe and almost fell and needed assistance to recover 30 Second Sit to Stand Test Score 7 Comments with arms pushed off from chair Timed Up and Go (TUG) Score 15s Comments pt slows down at turns d/t feeling unsteadiness. TUG Impairment Rating 40 to <60% Impaired (Score 14- 15) PT-OP-G Mobility & Gait Start: 06/02/20 18:24 Freq: Status: Active Protocol: Document 10/26/20 08:52 HH (Rec: 10/26/20 09:44 HH [id number]) Stair Climbing Evaluation Comments Stair Climbing Comments step over pattern for ascending with L rail step to pattern for descending with L rail PT-OP-H Neuro Start: 06/02/20 18:24 Freq: Status: Active Protocol: Document 06/03/20 09:46 LRN (Rec: 06/03/20 14:51 LRN [id number]) Sensation Evaluation Gross Sensation Gross Sensation Left LE Impaired Sensation Description Numbness,Pain Dermatome Impairments L4,L5,S1 Deep Tendon Reflex & Clonus Assessment Deep Tendon Reflex Left Achilles Deep Tendon Reflex 0 Absent Bilateral Patellar Deep Tendon Reflex 1+ Diminished PT-OP-J Posture/Palpation/Skin Start: 06/02/20 18:24 Freq: Status: Active Protocol: Document 06/03/20 09:46 LRN (Rec: 06/03/20 14:51 LRN [id number]) Posture Evaluation Position Standing Head/C-Spine Posture Forward Head L-Spine Posture Flattened Pelvis Posture Posterior Tilted Hip Posture (L) Flexed,(R) Flexed Palpation Assessment Location L TFL Palpation Location TFL Muscle belly Palpation Findings Tenderness L lateral hip Palpation Location Greater trochanter Palpation Findings Tenderness PT-OP-K Range of Motion Start: 06/02/20 18:24 Freq: Status: Active Protocol: Document 06/08/20 14:27 LRN (Rec: 06/08/20 15:30 LRN [id number]) Lumbar Spine Range of Motion Lumbar Spine Active Degrees Testing Position Standing Flexion 7 Extension 5 Lateral Flexion Left 10 Lateral Flexion Right 15 Comments Trunk flex: 5 hip flex Trunk ext: 5 hip ext PT-OP-L Special Tests Start: 06/02/20 18:24 Freq: Status: Active Protocol: Document 06/03/20 09:46 LRN (Rec: 06/03/20 14:51 LRN [id number]) Special Tests Lumbar Spine Special Tests Straight Leg Raise Test Results Neg bilaterally Comments Hamstring tightness Hip Special Tests AILEEN Test Results + R for anterior groin pain Comments Indicates 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 Indicates possible SIJ dysfunction. PT-OP-M Strength Start: 06/02/20 18:24 Freq: Status: Active Protocol: Document 08/30/20 09:54 HH (Rec: 08/30/20 10:30 HH [id number]) Hip Strength Hip Manual Muscle Testing Right Abduction 4- Good- PT-OP-Q Treatments Start: 06/02/20 18:24 Freq: Status: Active Protocol: Document 01/18/21 09:47 HH (Rec: 01/18/21 10:29 [id number]) Gym Equipment Shuttle Recovery uni squat Details cued knee alignment w/ behind toes Resistance 37# Shuttle Recovery Platform Stable Reps/Time 10 x2 B squat Details cued knee alignment w/ behind toes Resistance #75 Shuttle Recovery Platform Stable Reps/Time 15 x 2 Therapeutic Exercises Standing Exercises marching Standing Exercise Name SBA Side bilateral Reps/Minutes 20 ft x 4 side walk Equipment Used yellow band on knees Reps/Minutes 10 ft x 6 step up Side bilateral Reps/Minutes 10 x2 Comments no discomfort noted. Sit to Stand Side bilateral Reps/Minutes 6 x2 PT-OP-T Assessment and Plan Start: 06/02/20 18:24 Freq: Status: Active Protocol: Document 01/18/21 09:47 HH (Rec: 01/18/21 10:29 [id number]) Physical Therapy Assessment Goals ankle strength Impairment R ankle DF =4-/5 Short Term Goal (STG) pt will reach 4+/5 for r ankle DF STG Duration 4 weeks Intermediate Goal (LTG) 3/2 goal met pt reach 5/5 for R ankle DF pt amb without toe drag currently LTG Duration 8 weeks 6MWT Impairment 6 MWT Short Term Goal (STG) 11/09/20: 855 ft , break at 3rd min for 40 seconds. Toe dragged once. 6MWT Planned Giving Officer Goal (LTG) 3/2 unable to assess d/t recurrence for sciatic pain pt will reach 1000 ft for 6MWT without any toe drag/tripping episode LTG Duration 8 weeks 30 STS Impairment pt completed 7 times, 4 of them without armrest push offs . Short Term Goal (STG) 10/26/20 Pt is able to complete 7 times STS in 30 secs without using arms to push off. STG Duration 4 weeks Intermediate Goal (LTG) 11/09/20 pt completed STS 7 times w/o armrests but with trunk lean 3/2 unable to assess d/t recurrence for sciatic pain pt will be able to complete 10 times STS in 30 secs with arm push offs. LTG Duration 8 weeks Progress Towards Goals Progress Towards Goals Progressing Toward Goals Assessment Summary Assessment pt overall progress well since the flare up of his L hip. Pt regained his full strength of R DF and his activity tolerance has been improving. Expect pt to be DC around mid january Physical Therapy Plan Frequency and Duration Frequency of Treatment 1x/Week Duration of Treatment 10 weeks Plan of Care Start Date 12/21/20 Plan of Care End Date 03/06/21 Next Visit Focus/Plan Next Note Type Treatment Note Next Visit Plan Assess response to last tx: balance, LE strengthening. Continue PT POC: focus, balance, walking for endurance training, gait training
--- NOTE | 2021-01-25 11:14 | PT.OTN ---
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 History of Current Condition Pain onset insidious. States he has disc problems in the back and it was thought he had a pinched nerve. The injection provided relief for 1.5 days. Now he feels he is getting progressively worse. Getting up in the morning pain is 8-10/10 and lessens during the day to 3-4/10. After sitting for awhile (1 hr) after walking to the kitchen his pain increases. By bedtime pain is 6-10/10. Sleeps 4-5 hrs and then must get up due to the pain. Not able to take pain pills due to bowel problems. Takes Tylenol nightly and upon waking to help control the pain. Prior Treatments and Tests Dr. Bowen gave him a shot in the back and a week lateral to hip. Pain was a little better after the injections. Pain changed from 10 to 4. Future Testing and Treatments Planned Dr. Bowen follow up in July. Treatment Goals Patient/Caregiver Goals Pt goals: Walk dog with . Decrease pain to sleep 6-8 hrs peacefully without use of Tylenol. Decrease use of Tylenol for sleep. Prior Functional Status Baseline Function- ADL's Independent Baseline Function- Mobility Independent Baseline Function- Gait Pt able to walk without difficulty. Baseline Function- Other Not able to walk with to walk dog due to feeling of leg giving way. Able to sleep 6-8 hours per night. Current Functional Impairments (Reported) Functional Limitations- Mobility/Gait Pain with walking, not steady. Functional Limitations- Recreation/ Walked with to walk dog 1 Hobbies mile. 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 L knee has not been able to straighten for ~ 2 yrs. Current Dx (per history review ): Left herniated disc (L5-S1 ), Hip Osteoarthritis, Polymyalgia rheumatica, spondylosis of lumbar spine, and HTN. PT-OP-C Subjective Start: 06/02/20 18:24 Freq: Status: Active Protocol: Document 01/25/21 10:31 HH (Rec: 01/25/21 11:13 HH [id number]) OP-PT Subjective Patient Comments Patient Comments Ludmila been weak lately cause i think im having allergies. My hip is doing good so far. Patient Reported Progress Same PT-OP-D Balance Start: 06/02/20 18:24 Freq: Status: Active Protocol: Document 06/03/20 09:46 LRN (Rec: 06/03/20 16:33 LRN [id number]) OP-PT Balance Assessment Standing Balance Static Standing Balance Ability Poor Dynamic Standing Balance Ability Fair Standing Balance Comments Pt has loss of balance on initial standing, using plinth to stabilized at legs and snowden as standing time increases. Pt did not tolerate static standing for > 5' before pain in LLE caused him to request sitting. Alba Fall Scale Copyright Permission PT-OP-E Functional Tests Start: 06/02/20 18:24 Freq: Status: Active Protocol: Document 10/26/20 08:52 HH (Rec: 10/26/20 09:44 HH [id number]) Functional Tests 6 Minute Walk Test Distance 986 Device Used no SPC Comments pt tripped twice his toe and almost fell and needed assistance to recover 30 Second Sit to Stand Test Score 7 Comments with arms pushed off from chair Timed Up and Go (TUG) Score 15s Comments pt slows down at turns d/t feeling unsteadiness. TUG Impairment Rating 40 to <60% Impaired (Score 14- 15) PT-OP-G Mobility & Gait Start: 06/02/20 18:24 Freq: Status: Active Protocol: Document 10/26/20 08:52 HH (Rec: 10/26/20 09:44 HH [id number]) Stair Climbing Evaluation Comments Stair Climbing Comments step over pattern for ascending with L rail step to pattern for descending with L rail PT-OP-H Neuro Start: 06/02/20 18:24 Freq: Status: Active Protocol: Document 06/03/20 09:46 LRN (Rec: 06/03/20 14:51 LRN [id number]) Sensation Evaluation Gross Sensation Gross Sensation Left LE Impaired Sensation Description Numbness,Pain Dermatome Impairments L4,L5,S1 Deep Tendon Reflex & Clonus Assessment Deep Tendon Reflex Left Achilles Deep Tendon Reflex 0 Absent Bilateral Patellar Deep Tendon Reflex 1+ Diminished PT-OP-J Posture/Palpation/Skin Start: 06/02/20 18:24 Freq: Status: Active Protocol: Document 06/03/20 09:46 LRN (Rec: 06/03/20 14:51 LRN [id number]) Posture Evaluation Position Standing Head/C-Spine Posture Forward Head L-Spine Posture Flattened Pelvis Posture Posterior Tilted Hip Posture (L) Flexed,(R) Flexed Palpation Assessment Location L TFL Palpation Location TFL Muscle belly Palpation Findings Tenderness L lateral hip Palpation Location Greater trochanter Palpation Findings Tenderness PT-OP-K Range of Motion Start: 06/02/20 18:24 Freq: Status: Active Protocol: Document 06/08/20 14:27 LRN (Rec: 06/08/20 15:30 LRN [id number]) Lumbar Spine Range of Motion Lumbar Spine Active Degrees Testing Position Standing Flexion 7 Extension 5 Lateral Flexion Left 10 Lateral Flexion Right 15 Comments Trunk flex: 5 hip flex Trunk ext: 5 hip ext PT-OP-L Special Tests Start: 06/02/20 18:24 Freq: Status: Active Protocol: Document 06/03/20 09:46 LRN (Rec: 06/03/20 14:51 LRN [id number]) Special Tests Lumbar Spine Special Tests Straight Leg Raise Test Results Neg bilaterally Comments Hamstring tightness Hip Special Tests AILEEN Test Results + R for anterior groin pain Comments Indicates 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 Indicates possible SIJ dysfunction. PT-OP-M Strength Start: 06/02/20 18:24 Freq: Status: Active Protocol: Document 08/30/20 09:54 (Rec: 08/30/20 10:30 [id number]) Hip Strength Hip Manual Muscle Testing Right Abduction 4- Good- PT-OP-Q Treatments Start: 06/02/20 18:24 Freq: Status: Active Protocol: Document 01/25/21 10:31 HH (Rec: 01/25/21 11:13 [id number]) Cardio Equipment Bicycle (Upright) Duration (Minutes) 6 Resistance 5 Gym Equipment Shuttle Recovery uni squat Resistance 37# Shuttle Recovery Platform Stable Reps/Time 10 x2 B squat Details cued knee alignment w/ behind toes Resistance #75 Shuttle Recovery Platform Stable Reps/Time 8x2., c/o fatigue today. Shuttle Balance red Reps/Duration 8 mins Comments static stance, pt can only hold up to 8-10 seconds unable to complete tandem stance. Therapeutic Exercises Standing Exercises marching Standing Exercise Name SBA Side bilateral Reps/Minutes 20 ft x 4 side walk Reps/Minutes 10 ft x 4 Comments pt reports fatigue today step up Side bilateral Reps/Minutes 10 x2 Comments no discomfort noted. Sit to Stand Side bilateral Reps/Minutes 6 x2 PT-OP-T Assessment and Plan Start: 06/02/20 18:24 Freq: Status: Active Protocol: Document 01/25/21 10:31 HH (Rec: 01/25/21 11:13 [id number]) Physical Therapy Assessment Goals ankle strength Impairment R ankle DF =4-/5 Short Term Goal (STG) pt will reach 4+/5 for r ankle DF STG Duration 4 weeks Care Home Goal (LTG) 3/2 goal met pt reach 5/5 for R ankle DF pt amb without toe drag currently LTG Duration 8 weeks 6MWT Impairment 6 MWT Short Term Goal (STG) 11/09/20: 855 ft , break at 3rd min for 40 seconds. Toe dragged once. 6MWT Care Home Goal (LTG) 3/2 unable to assess d/t recurrence for sciatic pain pt will reach 1000 ft for 6MWT without any toe drag/tripping episode LTG Duration 8 weeks 30 STS Impairment pt completed 7 times, 4 of them without armrest push offs . Short Term Goal (STG) 10/26/20 Pt is able to complete 7 times STS in 30 secs without using arms to push off. STG Duration 4 weeks Emt/Paramedic Goal (LTG) 11/09/20 pt completed STS 7 times w/o armrests but with trunk lean 3/2 unable to assess d/t recurrence for sciatic pain pt will be able to complete 10 times STS in 30 secs with arm push offs. LTG Duration 8 weeks Assessment Summary Assessment pt overall shows weakness and fatigue today but no discomfort with L hip. Pt reports he possibly has seasonal allergies. Recommended him to see PCP if his weakness persists. Physical Therapy Plan Frequency and Duration Frequency of Treatment 1x/Week Duration of Treatment 10 weeks Plan of Care Start Date 12/21/20 Plan of Care End Date 03/06/21 Next Visit Focus/Plan Next Note Type Treatment Note Next Visit Plan Assess response to last tx: balance, LE strengthening. Continue PT POC: focus, balance, walking for endurance training, gait training
--- NOTE | 2021-02-03 15:00 | PT.OTN ---
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 History of Current Condition Pain onset insidious. States he has disc problems in the back and it was thought he had a pinched nerve. The injection provided relief for 1.5 days. Now he feels he is getting progressively worse. Getting up in the morning pain is 8-10/10 and lessens during the day to 3-4/10. After sitting for awhile (1 hr) after walking to the kitchen his pain increases. By bedtime pain is 6-10/10. Sleeps 4-5 hrs and then must get up due to the pain. Not able to take pain pills due to bowel problems. Takes Tylenol nightly and upon waking to help control the pain. Prior Treatments and Tests Dr. Bowen gave him a shot in the back and a week lateral to hip. Pain was a little better after the injections. Pain changed from 10 to 4. Future Testing and Treatments Planned Dr. Bowen follow up in July. Treatment Goals Patient/Caregiver Goals Pt goals: Walk dog with . Decrease pain to sleep 6-8 hrs peacefully without use of Tylenol. Decrease use of Tylenol for sleep. Prior Functional Status Baseline Function- ADL's Independent Baseline Function- Mobility Independent Baseline Function- Gait Pt able to walk without difficulty. Baseline Function- Other Not able to walk with to walk dog due to feeling of leg giving way. Able to sleep 6-8 hours per night. Current Functional Impairments (Reported) Functional Limitations- Mobility/Gait Pain with walking, not steady. Functional Limitations- Recreation/ Walked with to walk dog 1 Hobbies mile. 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 L knee has not been able to straighten for ~ 2 yrs. Current Dx (per history review ): Left herniated disc (L5-S1 ), Hip Osteoarthritis, Polymyalgia rheumatica, spondylosis of lumbar spine, and HTN. PT-OP-C Subjective Start: 06/02/20 18:24 Freq: Status: Active Protocol: Document 02/03/21 14:30 HH (Rec: 02/03/21 15:00 HH [id number]) OP-PT Subjective Patient Comments Patient Comments Im doing a little better but still weak. I still think its because of my allergy . Patient Reported Progress Same PT-OP-D Balance Start: 06/02/20 18:24 Freq: Status: Active Protocol: Document 06/03/20 09:46 LRN (Rec: 06/03/20 16:33 LRN [id number]) OP-PT Balance Assessment Standing Balance Static Standing Balance Ability Poor Dynamic Standing Balance Ability Fair Standing Balance Comments Pt has loss of balance on initial standing, using plinth to stabilized at legs and snowden as standing time increases. Pt did not tolerate static standing for > 5' before pain in LLE caused him to request sitting. Alba Fall Scale Copyright Permission PT-OP-E Functional Tests Start: 06/02/20 18:24 Freq: Status: Active Protocol: Document 10/26/20 08:52 HH (Rec: 10/26/20 09:44 HH [id number]) Functional Tests 6 Minute Walk Test Distance 986 Device Used no SPC Comments pt tripped twice his toe and almost fell and needed assistance to recover 30 Second Sit to Stand Test Score 7 Comments with arms pushed off from chair Timed Up and Go (TUG) Score 15s Comments pt slows down at turns d/t feeling unsteadiness. TUG Impairment Rating 40 to <60% Impaired (Score 14- 15) PT-OP-G Mobility & Gait Start: 08/12/20 18:24 Freq: Status: Active Protocol: Document 10/26/20 08:52 HH (Rec: 10/26/20 09:44 HH [id number]) Stair Climbing Evaluation Comments Stair Climbing Comments step over pattern for ascending with L rail step to pattern for descending with L rail PT-OP-H Neuro Start: 06/02/20 18:24 Freq: Status: Active Protocol: Document 06/03/20 09:46 LRN (Rec: 06/03/20 14:51 LRN [id number]) Sensation Evaluation Gross Sensation Gross Sensation Left LE Impaired Sensation Description Numbness,Pain Dermatome Impairments L4,L5,S1 Deep Tendon Reflex & Clonus Assessment Deep Tendon Reflex Left Achilles Deep Tendon Reflex 0 Absent Bilateral Patellar Deep Tendon Reflex 1+ Diminished PT-OP-J Posture/Palpation/Skin Start: 06/02/20 18:24 Freq: Status: Active Protocol: Document 06/03/20 09:46 LRN (Rec: 06/03/20 14:51 LRN [id number]) Posture Evaluation Position Standing Head/C-Spine Posture Forward Head L-Spine Posture Flattened Pelvis Posture Posterior Tilted Hip Posture (L) Flexed,(R) Flexed Palpation Assessment Location L TFL Palpation Location TFL Muscle belly Palpation Findings Tenderness L lateral hip Palpation Location Greater trochanter Palpation Findings Tenderness PT-OP-K Range of Motion Start: 06/02/20 18:24 Freq: Status: Active Protocol: Document 06/08/20 14:27 LRN (Rec: 06/08/20 15:30 LRN [id number]) Lumbar Spine Range of Motion Lumbar Spine Active Degrees Testing Position Standing Flexion 7 Extension 5 Lateral Flexion Left 10 Lateral Flexion Right 15 Comments Trunk flex: 5 hip flex Trunk ext: 5 hip ext PT-OP-L Special Tests Start: 06/02/20 18:24 Freq: Status: Active Protocol: Document 06/03/20 09:46 LRN (Rec: 06/03/20 14:51 LRN [id number]) Special Tests Lumbar Spine Special Tests Straight Leg Raise Test Results Neg bilaterally Comments Hamstring tightness Hip Special Tests AILEEN Test Results + R for anterior groin pain Comments Indicates 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 Indicates possible SIJ dysfunction. PT-OP-M Strength Start: 06/02/20 18:24 Freq: Status: Active Protocol: Document 08/30/20 09:54 HH (Rec: 08/30/20 10:30 HH [id number]) Hip Strength Hip Manual Muscle Testing Right Abduction 4- Good- PT-OP-Q Treatments Start: 06/02/20 18:24 Freq: Status: Active Protocol: Document 02/03/21 14:30 HH (Rec: 02/03/21 15:00 HH [id number]) Cardio Equipment Bicycle (Upright) Duration (Minutes) 6 Resistance 5 Gym Equipment Shuttle Recovery uni squat Resistance 37# Shuttle Recovery Platform Stable Reps/Time 10 x2 B squat Details cued knee alignment w/ behind toes Resistance #75 Shuttle Recovery Platform Stable Reps/Time 8x2., c/o fatigue today. Therapeutic Exercises Standing Exercises ankle board Standing Exercise Name DF and PF, lateral weight shift Side bilateral Equipment Used ankle board Reps/Minutes 4 min Comments cued for upright posture, carrying weight toe tap Side bilateral Equipment Used no UE support Reps/Minutes 20 x2 step up Side bilateral Reps/Minutes 10 x2 Comments no discomfort noted. PT-OP-T Assessment and Plan Start: 06/02/20 18:24 Freq: Status: Active Protocol: Document 02/03/21 14:30 HH (Rec: 02/03/21 15:00 HH [id number]) Physical Therapy Assessment Goals ankle strength Impairment R ankle DF =4-/5 Short Term Goal (STG) pt will reach 4+/5 for r ankle DF STG Duration 4 weeks Detention Goal (LTG) 3/2 goal met pt reach 5/5 for R ankle DF pt amb without toe drag currently LTG Duration 8 weeks 6MWT Impairment 6 MWT Short Term Goal (STG) 11/09/20: 855 ft , break at 3rd min for 40 seconds. Toe dragged once. 6MWT Linker Up Goal (LTG) 3/2 unable to assess d/t recurrence for sciatic pain pt will reach 1000 ft for 6MWT without any toe drag/tripping episode LTG Duration 8 weeks 30 STS Impairment pt completed 7 times, 4 of them without armrest push offs . Short Term Goal (STG) 10/26/20 Pt is able to complete 7 times STS in 30 secs without using arms to push off. STG Duration 4 weeks Detention Goal (LTG) 11/09/20 pt completed STS 7 times w/o armrests but with trunk lean 3/2 unable to assess d/t recurrence for sciatic pain pt will be able to complete 10 times STS in 30 secs with arm push offs. LTG Duration 8 weeks Progress Towards Goals Progress Towards Goals Goals Met Progress Comments pt has no more L hip discomfort and foot drag during gait. Assessment Summary Assessment Pt has reached plateau for his strength and balance at this point. Pt has no more foot drag while walking and no more L hip pain for 2 months. Recommended pt to join fitness and pool class [facility]. Physical Therapy Plan Frequency and Duration Frequency of Treatment 1x/Week Duration of Treatment 10 weeks Plan of Care Start Date 12/21/20 Plan of Care End Date 03/06/21 Discharge Physical Therapy Discharge Reasons Goals Met Discharge Comments pt is comfortable being DC today d/t consistent progress for the past 2 months.
== END 2021-02-25 11:14 | disposition home or self-care (01) ==
LOC: PHYS 14:30
PROVIDERS: PCP Family Medicine; Referring Provider Physical Medicine & Rehabilitation; Visit Provider Physical Medicine & Rehabilitation
DX: M16.9 Osteoarthritis of hip, unspecified (principal); M51.27 Other intervertebral disc displacement, lumbosacral region; R26.81 Unsteadiness on feet; M62.81 Muscle weakness (generalized)
CPT/HCPCS: 97110; 97112; 97116; 97140; 97162; 97530; 97535; J2250; J3010

== ENCOUNTER 2021-06-05 13:23 | Emergency (ER) | payer OTHER, SELFPAY ==
[2018-03-11 05:37] VITALS: BMI 23.8
[2021-06-05 13:29] VITALS: BP 170/79; PULSE 59; RESP 18; TEMP 35.8; O2SAT 96; BMI 24.1
--- NOTE | 2021-06-05 13:59 | ED.EXTPRO ---
HPI - Extremity Problem <Adolfo Gama PA-C - Last Filed: 06/05/21 14:12> General Chief complaint: Extremity Problem,Nontraumatic Stated complaint: Pain all up the RT side of his body Time Seen by Provider: 06/05/21 13:42 Source: patient Mode of arrival: Ambulatory Limitations: no limitations History of Present Illness HPI Narrative: arben presents today with chief complaint of right-sided thigh and lower abdominal skin pain that originally started about 2 months ago. He reports that it was every now and then initially that has become more constant. He saw his primary care provider who diagnosed him with meralgia paresthetica but noted at the time that the patient was not interested in gabapentin. He has been taking acetaminophen which does not seem to be helping his symptoms. He denies any rash, numbness, tingling, decreased range of motion, nausea, vomiting, constipation, diarrhea, unexpected weight changes, or any other acute concerns or complaints at this time. After further discussion, the patient states that he has never taken gabapentin in the past and is open to try this medication. Related Data Home Medications Medication Instructions Recorded Confirmed CA PANTOTHENATE/FOLIC ACID/VIT 1 liq PO QDAY #0 11/18/11 05/31/21 (MULTIVITAMIN) VITAMIN D (Vitamin D3) 1,000 unit PO QDAY #0 11/18/11 05/31/21 aspirin 81 mg chewable tablet 81 mg PO DAILY #0 06/03/12 05/31/21 lactobacillus combination no.4 3 3,000 mmu cells PO DAILY 05/31/21 05/31/21 billion cell capsule (Probiotic) Previous Rx's Medication Instructions Recorded simvastatin 20 mg tablet 20 mg PO HS #90 tab 08/07/19 allopurinol 100 mg tablet 100 mg PO DAILY #90 tab 11/25/19 citalopram 40 mg tablet 40 mg PO DAILY #90 tab 02/23/20 atenolol 50 mg tablet 100 mg PO DAILY #180 tab 07/05/20 finasteride 5 mg tablet 5 mg PO DAILY #90 tab 02/01/21 gabapentin 300 mg capsule 300 mg PO BID PRN #30 cap 06/05/21 Allergies Allergy/AdvReac Type Severity Reaction Status Date / Time carbamazepine [CARBAMAZEPINE] Allergy Mild HIVES Verified 05/31/21 14:56 codeine [CODEINE] Allergy Mild CONSTIPATIO Verified 05/31/21 14:56 N tamsulosin [TAMSULOSIN] Allergy Mild REAL BAD Verified 05/31/21 14:56 COUGH morphine [MORPHINE] AdvReac Unknown severe Verified 05/31/21 14:56 nausea/vomiting Review of Systems <Adolfo Gama PA-C - Last Filed: 06/05/21 14:12> Review of Systems Narrative: As per HPI Patient History <Adolfo Gama PA-C - Last Filed: 06/05/21 14:12> Medical History (Updated 06/05/21 @ 14:05 by Adolfo Gama PA-C) Bilateral renal cysts BPH w urinary obs/LUTS Cataract Coronary artery disease 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 Gait instability Gout Greater trochanteric bursitis of left hip Hemorrhoids Herniated nucleus pulposus, L5-S1, left History of small bowel obstruction Hyperlipidemia Hypertension Iliotibial band syndrome, left leg Myocardial infarction 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) Pelvic somatic dysfunction Piriformis syndrome of left side Polymyalgia rheumatica Sacral region somatic dysfunction Small bowel obstruction Somatic dysfunction of lower extremity 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) Trigeminal neuralgia Surgical History H/O prostate biopsy H/O total cystectomy History of angioplasty (2001) History of gastrointestinal surgery Hx of inguinal hernia surgery Status post cholecystectomy Family History Father Macular degeneration Sister Hypertension Social History marital status: number of children: 0 household members: spouse Smoking Status: Never smoker alcohol intake: current (1-2 A DAY ) substance use type: does not use caffeine: Yes Smoking Status: Never smoker alcohol intake frequency: a few times a week Substance Use Type: does not use Exam <Adlofo Gama PA-C - Last Filed: 06/05/21 14:12> Narrative Exam Narrative: Exam Narrative: Const General: cooperative, healthy appearing, comfortable, no acute distress, well developed and well groomed Nutritional Appearance: average body habitus Orientation: alert and oriented x3 HENMT Head: normal to inspection and atraumatic Ears: hearing grossly normal bilaterally Nose: external nose normal and nares normal Face and sinus: normal facial exam Neck Neck: normal visual inspection and supple Resp Effort & Inspection: normal respiratory effort, able to speak in complete sentences, no audible wheezes, not labored, no nasal flaring and no respiratory distress Neuro General: alert, oriented x3, gait normal, tone normal and moves all extremities Cognition: normal cognition Speech: speech normal Gait: normal gait, patellar DTRs 1+ bilaterally Extremities Lower extremities exposed. Grossly normal in appearance with no obvious rash, ecchymosis or erythema. No swelling noted. No bony or soft tissue tenderness. He has full sensation to bilateral lower extremities. He has tenderness to very light touch in his proximal lateral right thigh that continues up to his lower right flank. No tenderness with deeper palpation to that same area. GI No abdominal distension, normal bowel sounds, nontender to palpation, no masses noted Psych Appearance: grossly normal and well kempt Mental Status: mental status grossly normal Speech and Movement: speech and movement normal Mood: congruent mood Affect: normal affect Initial Vital Signs Initial Vital Signs: Vital Signs Temperature 96.5 F L 06/05/21 13:29 Pulse Rate 59 L 06/05/21 13:29 Respiratory Rate 18 06/05/21 13:29 Blood Pressure 170/79 H 06/05/21 13:29 Pulse Oximetry 96 06/05/21 13:29 <Jennifer Anton MD - Last Filed: 06/05/21 17:03> Initial Vital Signs Initial Vital Signs: Vital Signs Temperature 96.5 F L 06/05/21 13:29 Pulse Rate 59 L 06/05/21 13:29 Respiratory Rate 18 06/05/21 13:29 Blood Pressure 170/79 H 06/05/21 13:29 Pulse Oximetry 96 06/05/21 13:29 Course <Adolfo Gama PA-C - Last Filed: 06/05/21 14:12> Vital Signs Vital signs: Vital Signs - 8 hr 06/05/21 13:29 Temperature 96.5 F L Pulse Rate 59 L Respiratory Rate 18 Blood Pressure 170/79 H Pulse Oximetry 96 <Jennifer Anton MD - Last Filed: 06/05/21 17:03> Vital Signs Vital signs: Vital Signs - 8 hr 06/05/21 13:29 Temperature 96.5 F L Pulse Rate 59 L Respiratory Rate 18 Blood Pressure 170/79 H Pulse Oximetry 96 [facility] - Extremity (Nontraumatic) <Adolfo Gama PA-C - Last Filed: 06/05/21 14:12> [facility] Narrative Medical decision making narrative: Differential diagnosis includes meralgia paresthetica, Guillian barre, demyelinating disease, intra-abdominal infection. Patient has a reassuring examination at this time. He has full strength and sensation to bilateral lower extremities. Patellar DTRs are within normal limits. He does not have any reproducible abdominal tenderness and vital signs do not suggest any systemic signs of illness at this time. This has been going on for 2 months so I do not think that there is an acute life-threatening etiology to his symptoms at this time. Recommend trial of gabapentin for likely peripheral neuropathy with PCP follow-up for further evaluation. Patient verbalizes understanding and agrees to plan and has no further concerns at this time. Thank you A [id number] system was used with the dictation of this note. Please disregard any spelling or grammatical errors. Discharge Plan Departure Patient Disposition: Home Clinical Impression: Paresthesia of skin Activity Restrictions/Additional Instructions: It was very nice to meet you this afternoon. Please use the new prescription medication to help with your symptoms as needed. I would like you to call your PCP on Sunday to schedule a follow-up appointment. If you experience right leg weakness, right arm weakness, speech changes, fever, notice a rash or have any additional concerns or complaints do not hesitate to return to the emergency department for re-evaluation. Thank you Adolfo Gama Prescriptions: New gabapentin 300 mg capsule 300 mg PO BID PRN (Reason: pain) Qty: 30 RF: 0 No Action Probiotic 3 billion cell capsule 3,000 mmu cells PO DAILY RF: 0 CA PANTOTHENATE/FOLIC ACID/VIT (MULTIVITAMIN) 1 liq PO QDAY Qty: 0 RF: 0 VITAMIN D (Vitamin D3) 1,000 unit PO QDAY Qty: 0 RF: 0 aspirin 81 mg Tablet,Chewable 81 mg PO DAILY Qty: 0 RF: 0 simvastatin 20 mg tablet 20 mg PO HS Qty: 90 RF: 3 allopurinol 100 mg tablet 100 mg PO DAILY Qty: 90 RF: 3 citalopram 40 mg tablet 40 mg PO DAILY Qty: 90 RF: 3 atenolol 50 mg tablet 100 mg PO DAILY Qty: 180 RF: 3 finasteride 5 mg tablet 5 mg PO DAILY Qty: 90 RF: 3 Referrals: Samson Perez MD [Primary Care Provider] - <Jennifer Anton MD - Last Filed: 06/05/21 17:03> [facility] ED Attending Lawsonature Attestation: I was immediately available in the department for consultation throughout this patient's visit. I agree with documentation as above. Jennifer Anton MD
--- NOTE | 2021-06-05 14:26 | PC.NURSE ---
patient reports pain in his right leg. He states that his leg felt like is was on fire and he couldnt touch it. His skin was free from any rash or redness, swelling. He states that he had a bad fall in the passed and ever since the hes been having pain all over that seems to move around and is hard to identify the source or cause.
== END 2021-06-05 14:30 | disposition home or self-care (01) ==
PROVIDERS: Emergency Provider Physician Assistant; PCP Family Medicine
DX: R20.2 Paresthesia of skin (principal)
CPT/HCPCS: 99281

== ENCOUNTER 2021-06-15 10:18 | Emergency (ER) | payer OTHER, SELFPAY ==
[2018-03-11 05:37] VITALS: BMI 23.8
[2021-06-15] VITALS (15 sets, daily range): BP systolic 127–170; BP diastolic 64–84; PULSE 61–75; RESP 16–28; TEMP 36.2; O2SAT 92–98; BMI 24.4
--- NOTE | 2021-06-15 10:41 | ED.WOUNDLAC ---
HPI - Wound/Laceration General Chief Complaint: Wound/Laceration Stated Complaint: shingles pain x3 weeks Time Seen by Provider: 06/15/21 10:22 Source: patient and family Mode of arrival: Wheelchair Limitations: no limitations Related Data Home Medications Medication Instructions Recorded Confirmed CA PANTOTHENATE/FOLIC ACID/VIT 1 liq PO QDAY #0 11/18/11 06/07/21 (MULTIVITAMIN) VITAMIN D (Vitamin D3) 1,000 unit PO QDAY #0 11/18/11 06/07/21 aspirin 81 mg chewable tablet 81 mg PO DAILY #0 06/03/12 06/07/21 lactobacillus combination no.4 3 3,000 mmu cells PO DAILY 05/31/21 06/07/21 billion cell capsule (Probiotic) Previous Rx's Medication Instructions Recorded simvastatin 20 mg tablet 20 mg PO HS #90 tab 08/07/19 allopurinol 100 mg tablet 100 mg PO DAILY #90 tab 11/25/19 citalopram 40 mg tablet 40 mg PO DAILY #90 tab 02/23/20 atenolol 50 mg tablet 100 mg PO DAILY #180 tab 07/05/20 finasteride 5 mg tablet 5 mg PO DAILY #90 tab 02/01/21 gabapentin 300 mg capsule 300 mg PO BID PRN #30 cap 06/05/21 oxycodone 5 mg tablet 5 mg PO BEDTIME #20 tab 06/13/21 Allergies Allergy/AdvReac Type Severity Reaction Status Date / Time carbamazepine [CARBAMAZEPINE] Allergy Mild HIVES Verified 06/07/21 10:51 codeine [CODEINE] Allergy Mild CONSTIPATIO Verified 06/07/21 10:51 N tamsulosin [TAMSULOSIN] Allergy Mild REAL BAD Verified 06/07/21 10:51 COUGH morphine [MORPHINE] AdvReac Unknown severe Verified 06/07/21 10:51 nausea/vomiting Patient History Medical History (Updated 06/07/21 @ 11:23 by oJse Elias Armas PA-C) Bilateral renal cysts BPH w urinary obs/LUTS Cataract Coronary artery disease 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 Gait instability Gout Greater trochanteric bursitis of left hip Hemorrhoids Herniated nucleus pulposus, L5-S1, left History of small bowel obstruction Hyperlipidemia Hypertension Iliotibial band syndrome, left leg Myocardial infarction 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) Pelvic somatic dysfunction Piriformis syndrome of left side Polymyalgia rheumatica Sacral region somatic dysfunction Small bowel obstruction Somatic dysfunction of lower extremity 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) Trigeminal neuralgia Surgical History H/O prostate biopsy H/O total cystectomy History of angioplasty (2001) History of gastrointestinal surgery Hx of inguinal hernia surgery Status post cholecystectomy Family History Father Macular degeneration Sister Hypertension Social History marital status: number of children: 0 household members: spouse Smoking Status: Never smoker alcohol intake: current (1-2 A DAY ) substance use type: does not use caffeine: Yes Smoking Status: Never smoker alcohol intake frequency: a few times a week Substance Use Type: does not use Exam Initial Vital Signs Initial Vital Signs: Vital Signs Temperature 97.2 F L 06/15/21 10:32 Pulse Rate 75 06/15/21 10:32 Respiratory Rate 18 06/15/21 10:32 Blood Pressure 140/79 06/15/21 10:32 Pulse Oximetry 97 06/15/21 10:32 Course Vital Signs Vital signs: Vital Signs - 8 hr 06/15/21 10:32 Temperature 97.2 F L Pulse Rate 75 Respiratory Rate 18 Blood Pressure 140/79 Pulse Oximetry 97 Discharge Plan Departure Prescriptions: No Action Probiotic 3 billion cell capsule 3,000 mmu cells PO DAILY RF: 0 CA PANTOTHENATE/FOLIC ACID/VIT (MULTIVITAMIN) 1 liq PO QDAY Qty: 0 RF: 0 VITAMIN D (Vitamin D3) 1,000 unit PO QDAY Qty: 0 RF: 0 aspirin 81 mg Tablet,Chewable 81 mg PO DAILY Qty: 0 RF: 0 simvastatin 20 mg tablet 20 mg PO HS Qty: 90 RF: 3 allopurinol 100 mg tablet 100 mg PO DAILY Qty: 90 RF: 3 citalopram 40 mg tablet 40 mg PO DAILY Qty: 90 RF: 3 atenolol 50 mg tablet 100 mg PO DAILY Qty: 180 RF: 3 finasteride 5 mg tablet 5 mg PO DAILY Qty: 90 RF: 3 oxycodone 5 mg tablet 5 mg PO BEDTIME Qty: 20 RF: 0 gabapentin 300 mg capsule 300 mg PO BID PRN (Reason: pain) Qty: 30 RF: 0 Referrals: Samson Perez MD [Primary Care Provider] -
--- NOTE | 2021-06-15 10:55 | ED_ITS ---
HPI - General Adult General Chief complaint: Wound/Laceration Stated complaint: shingles pain x3 weeks Time Seen by Provider: 06/15/21 10:22 Source: patient and family Mode of arrival: Wheelchair Limitations: no limitations History of Present Illness HPI narrative: 85-year-old gentleman with a history of hypertension, coronary artery disease, polymyalgia rheumatica, history of trigeminal neuralgia and resolving zoster outbreak in a right-sided S1 distribution presents complaining of pain. He attributes all of it to his shingles however when he describes the location of his pain he points to his abdomen in right lower chest. He describes no recent fevers or cough. He states that he has been voiding and sto oling normally. He states that for the shingles he took a medicine 3 times a day, presumably an antiviral and gabapentin which was completely ineffective in treating any pain. His notes that he has been holding his left lower abdominal area and complaining of pain over the last couple of weeks. Patient's complaints are tangential and difficult to fully elucidate. Related Data Home Medications Medication Instructions Recorded Confirmed CA PANTOTHENATE/FOLIC ACID/VIT 1 liq PO QDAY #0 11/18/11 06/07/21 (MULTIVITAMIN) VITAMIN D (Vitamin D3) 1,000 unit PO QDAY #0 11/18/11 06/07/21 aspirin 81 mg chewable tablet 81 mg PO DAILY #0 06/03/12 06/07/21 lactobacillus combination no.4 3 3,000 mmu cells PO DAILY 05/31/21 06/07/21 billion cell capsule (Probiotic) Previous Rx's Medication Instructions Recorded simvastatin 20 mg tablet 20 mg PO HS #90 tab 08/07/19 allopurinol 100 mg tablet 100 mg PO DAILY #90 tab 11/25/19 citalopram 40 mg tablet 40 mg PO DAILY #90 tab 02/23/20 atenolol 50 mg tablet 100 mg PO DAILY #180 tab 07/05/20 finasteride 5 mg tablet 5 mg PO DAILY #90 tab 02/01/21 gabapentin 300 mg capsule 300 mg PO BID PRN #30 cap 06/05/21 oxycodone 5 mg tablet 5 mg PO BEDTIME #20 tab 06/13/21 oxycodone-acetaminophen 5 mg-325 1 tab PO Q6H PRN #15 tab 06/15/21 mg tablet Allergies Allergy/AdvReac Type Severity Reaction Status Date / Time carbamazepine [CARBAMAZEPINE] Allergy Mild HIVES Verified 06/07/21 10:51 codeine [CODEINE] Allergy Mild CONSTIPATIO Verified 06/07/21 10:51 N tamsulosin [TAMSULOSIN] Allergy Mild REAL BAD Verified 06/07/21 10:51 COUGH morphine [MORPHINE] AdvReac Unknown severe Verified 06/07/21 10:51 nausea/vomiting Review of Systems Review of Systems Narrative: Remainder of complete review of systems is otherwise unremarkable except for that included in the HPI. 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) Pelvic somatic dysfunction Piriformis syndrome of left side Polymyalgia rheumatica Sacral region somatic dysfunction Small bowel obstruction Somatic dysfunction of lower extremity 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) Trigeminal neuralgia Zoster Surgical History H/O prostate biopsy H/O total cystectomy History of angioplasty (2001) History of gastrointestinal surgery Hx of inguinal hernia surgery Status post cholecystectomy Family History Father Macular degeneration Sister Hypertension Social History marital status: number of children: 0 household members: spouse Smoking Status: Never smoker alcohol intake: current (1-2 A DAY ) substance use type: does not use caffeine: Yes Smoking Status: Never smoker alcohol intake frequency: a few times a week Substance Use Type: does not use Exam Narrative Exam Narrative: General: No acute distress, titubation appreciated, tangential history and difficulty staying focused but able to speak in full sentences HEENT: Moist mucous membranes, normal sclera with reactive pupils, Neck: No JVD, supple Respiratory: Lungs are clear to auscultation, no wheezing no rales no rhonchi. Full and symmetrical air movement Cardiac: Regular rate and rhythm no murmurs no bruits Abdomen: Soft, nontender, good bowel tones, no flank pain Skin: Warm and dry, resolving zoster outbreak right-side S1 distribution without superinfection Neurologic: Globally weak, baseline tremor, peripheral neuropathy a baseline Extremities: No trauma, well perfused Psych: Cooperative, poor overall insight, slightly confused Initial Vital Signs Initial Vital Signs: Vital Signs Pulse Rate 74 06/15/21 10:25 Pulse Oximetry 95 06/15/21 10:25 Course Orders Ordered: ED Orders 06/15/21 11:00 Complete Blood Count AUTO DIFF Stat Comprehensive Metabolic Panel Stat Lipase Stat 06/15/21 12:39 CT abdomen pelvis w con Stat Vital Signs Vital signs: Vital Signs - 8 hr 06/15/21 10:25 06/15/21 10:27 06/15/21 10:30 Temperature Pulse Rate 74 71 72 Respiratory Rate Blood Pressure 140/79 127/72 Pulse Oximetry 95 96 97 06/15/21 10:32 06/15/21 10:54 06/15/21 11:00 Temperature 97.2 F L Pulse Rate 75 67 66 Respiratory Rate 18 28 H 26 H Blood Pressure 140/79 142/74 H 132/64 Pulse Oximetry 97 96 96 06/15/21 11:33 06/15/21 11:34 06/15/21 12:00 Temperature Pulse Rate 65 63 62 Respiratory Rate 16 Blood Pressure 145/79 H 163/78 H Pulse Oximetry 95 95 96 06/15/21 12:30 06/15/21 12:51 06/15/21 13:00 Temperature Pulse Rate 67 64 62 Respiratory Rate Blood Pressure 170/84 H 166/78 H 152/74 H Pulse Oximetry 97 92 98 06/15/21 13:30 06/15/21 14:00 06/15/21 14:12 Temperature Pulse Rate 61 64 65 Respiratory Rate Blood Pressure 165/78 H Pulse Oximetry 97 98 97 Medical Decision Making Lab Data Result diagrams: 06/15/21 11:00 06/15/21 11:00 Labs: Lab Results 06/15/21 06/15/21 Range/Units 11:00 11:00 WBC 4.6 (4.5-11.0) X10^3/uL RBC 4.59 (4.5-5.9) X10^6/uL Hgb 13.2 L (13.5-17.5) g/dL Hct 39.7 L (41-53) % MCV 86.5 (80-100) fL MCH 28.7 (26-34) PG MCHC 33.2 (30-36) % RDW 14.9 H (11.6-14.8) % Plt Count 314 (150-400) X10^3/uL Neut % (Auto) 55.9 (50-75) % Lymph % (Auto) 28.6 (25-40) % [place] % (Auto) 14.7 H (3-14) % Eos % (Auto) 0.4 L (2-4) % Baso % (Auto) 0.4 (0-2) % Neut # (Auto) 2600 (9613-9544) /uL Lymph # (Auto) 1300 (9428-9961) /uL [place] # (Auto) 700 (0-900) /uL Eos # (Auto) 0 (0-450) /uL Baso # (Auto) 0 (0-100) /uL Sodium 137 (137-145) mmol/L Potassium 4.4 (3.4-5.1) mmol/L Chloride 101 (98-107) mmol/L Carbon Dioxide 28 (22-32) mmol/L BUN 23 H (9-20) mg/dL Creatinine 0.92 (0.66-1.25) mg/dL Estimated GFR > 60.0 (>60) mL/min BUN/Creatinine Ratio 25.0 H (6-22) Glucose 99 (80-110) mg/dL Calcium 9.8 (8.4-10.2) mg/dL Total Bilirubin 0.5 (0.2-1.3) mg/dL AST 37 (17-59) IU/L ALT 34 (<50) IU/L Alkaline Phosphatase 78 (38-126) U/L Total Protein 8.0 (6.3-8.2) g/dL Albumin 4.7 (3.5-5.0) g/dL Globulin 3.3 (1.7-4.1) g/dL Albumin/Globulin Ratio 1.4 (1.0-2.8) Lipase 135 (23-300) U/L Imaging Data CT scan - abdomen/pelvis: Radiologist's Impression: FINDINGS: Image quality: Excellent. Lung bases: Unremarkable. Heart: No significant findings. ABDOMEN: Liver: Unremarkable. Gallbladder: Previously resected Biliary ducts: Unremarkable. Pancreas: Unremarkable. Spleen: Unremarkable. Adrenal Glands: Unremarkable. Kidneys and Ureters: Unremarkable. Stomach and Bowel: Stomach, small bowel loops, and colon are unremarkable. Peritoneum: No abnormal intraperitoneal fluid. No free air. Ventral Wall: No hernias. Abdominal Nodes: No retroperitoneal or mesenteric adenopathy by size criteria. Vessels: Aorta and inferior vena cava are normal in size. PELVIS: Pelvic Organs: Unremarkable. Bladder: Unremarkable. Pelvic Nodes: No enlarged lymph nodes. Miscellaneous: No hernias are seen. Bones: Unremarkable. IMPRESSION: No source of pain identified. Prior cholecystectomy. Several water density simple appearing renal cortical cysts are noted bilaterally. Source of current pain is not identified. Dictated by: Ronni Judge M.D. on 06/15/2021 at 12:55 MDM Narrative Medical decision making narrative: 85-year-old gentleman with a shingles outbreak and right-sided S1 distribution presents with abdominal pain. He describes his entire abdomen and right lower chest but can not be specific. His notes he had been holding his left lower abdominal area. Clinical exam does not suggest an acute finding. There are no rashes over the abdomen or torso. He does not have an acute abdomen. Labs are unremarkable without suggestion of overwhelming infection, renal failure, liver failure. CT scan is equally unremarkable. No evidence of bowel obstruction, masses, tumors, intra- abdominal abscess such as appendicitis or diverticulitis. At this point I do not have an explanation for the abdominal and lower chest pain and it may be that it simply all pain related to the zoster. For this he has completed a course of antivirals he has been given gabapentin that he found unhelpful and Tylenol is not adequate. Will discharge him home with a prescription for Percocet for pain control as well as clear discussion regarding cognitive side effects constipation and risk of falls with both he and his . A prescription for MiraLax is given at same time. Will encourage him to follow-up with his primary care physician as soon as possible. Discharge Plan Departure Patient Disposition: Home Clinical Impression: Post herpetic neuralgia Abdominal pain Qualifiers: Abdominal location: generalized Qualified Code(s): R10.84 - Generalized abdominal pain Herpes zoster Qualifiers: Herpes zoster complications: without complications Qualified Code(s): B02.9 - Zoster without complications Instructions: DI for Shingles, DI for Abdominal Pain-Adult Activity Restrictions/Additional Instructions: Thank you for coming in today Regarding your abdominal pain, I did not find any life-threatening explanations for the pain. It may be that the severity of the pain from your shingles is causing this abdominal pain. If it worsens or you have new symptoms please return to the ER Regarding the shingles pain, please do continue 1 capsule of gabapentin every night to try and help decrease nerve pain. For additional pain you can use 2 Tylenol or 1 Tylenol and 1 Percocet. Percocet is a narcotic and can increase confusion, increase your risk of falls and will absolutely cause constipation Every day that you take a Percocet, please double up on your stool softeners and prune juice Please follow-up with Dr. jean in the next couple of days Prescriptions: New oxycodone-acetaminophen 5-325 mg tablet 1 tab PO Q6H PRN (Reason: pain) Qty: 15 RF: 0 No Action Probiotic 3 billion cell capsule 3,000 mmu cells PO DAILY RF: 0 CA PANTOTHENATE/FOLIC ACID/VIT (MULTIVITAMIN) 1 liq PO QDAY Qty: 0 RF: 0 VITAMIN D (Vitamin D3) 1,000 unit PO QDAY Qty: 0 RF: 0 aspirin 81 mg Tablet,Chewable 81 mg PO DAILY Qty: 0 RF: 0 simvastatin 20 mg tablet 20 mg PO HS Qty: 90 RF: 3 allopurinol 100 mg tablet 100 mg PO DAILY Qty: 90 RF: 3 citalopram 40 mg tablet 40 mg PO DAILY Qty: 90 RF: 3 atenolol 50 mg tablet 100 mg PO DAILY Qty: 180 RF: 3 finasteride 5 mg tablet 5 mg PO DAILY Qty: 90 RF: 3 oxycodone 5 mg tablet 5 mg PO BEDTIME Qty: 20 RF: 0 gabapentin 300 mg capsule 300 mg PO BID PRN (Reason: pain) Qty: 30 RF: 0 Referrals: Samson Perez MD [Primary Care Provider] -
[2021-06-15 12:23] LABS: Add Manual Diff / Slide Review NO; Basophils Absolute Auto 0 /uL (0-100); Basophils Percent Auto 0.4 % (0-2); Eosinophils Absolute Auto 0 /uL (0-450); Eosinophils Percent Auto 0.4 % (2-4); Hematocrit 39.7 % (41-53); Hemoglobin 13.2 g/dL (13.5-17.5); Lymphocytes Absolute Auto 1300 /uL (1100-4500); Lymphocytes Percent Auto 28.6 % (25-40); Mean Corpuscular HGB Conc 33.2 % (30-36); Mean Corpuscular Hemoglobin 28.7 PG (26-34); Mean Corpuscular Volume 86.5 fL (80-100); Monocytes Absolute Auto 700 /uL (0-900); Monocytes Percent Auto 14.7 % (3-14); Neutrophils Absolute Auto 2600 /uL (1500-7000); Neutrophils Percent Auto 55.9 % (50-75); Platelet Count 314 X10^3/uL (150-400); Red Blood Cell Count 4.59 X10^6/uL (4.5-5.9); Red Cell Distribution Width 14.9 % (11.6-14.8); White Blood Cell Count 4.6 X10^3/uL (4.5-11.0)
[2021-06-15 12:29] LABS: Alanine Aminotransferase 34 IU/L (<50); Albumin 4.7 g/dL (3.5-5.0); Albumin Globulin Ratio 1.4 (1.0-2.8); Alkaline Phosphatase 78 U/L (38-126); Aspartate Aminotransferase 37 IU/L (17-59); Bilirubin Total 0.5 mg/dL (0.2-1.3); Blood Urea Nitrogen 23 mg/dL (9-20); Calcium 9.8 mg/dL (8.4-10.2); Carbon Dioxide 28 mmol/L (22-32); Chloride 101 mmol/L (98-107); Estimated Glomerular Filt Rate > 60.0 mL/min (>60); Globulin 3.3 g/dL (1.7-4.1); Glucose 99 mg/dL (80-110); HEMOLYSIS < 15 (0-50); Lipase 135 U/L (23-300); Potassium 4.4 mmol/L (3.4-5.1); Sodium 137 mmol/L (137-145)
--- NOTE | 2021-06-15 12:39 | DI.CT.S_ITS ---
PROCEDURE: CT ABDOMEN PELVIS W CON INDICATIONS: abdominal pain TECHNIQUE: After the administration of intravenous contrast, axial sections acquired from the lung bases to the pubic symphysis. Coronal and sagittal reformats were performed. For radiation dose reduction, the following was used: automated exposure control, adjustment of mA and/or kV according to patient size. COMPARISON: [facility], CT, CT ABDOMEN PELVIS W CON, 10/13/2020, 17:11. [facility], CT, CT ABDOMEN PELVIS W CON, 06/13/2019, 23:25. FINDINGS: Image quality: Excellent. Lung bases: Unremarkable. Heart: No significant findings. ABDOMEN: Liver: Unremarkable. Gallbladder: Previously resected Biliary ducts: Unremarkable. Pancreas: Unremarkable. Spleen: Unremarkable. Adrenal Glands: Unremarkable. Kidneys and Ureters: Unremarkable. Stomach and Bowel: Stomach, small bowel loops, and colon are unremarkable. Peritoneum: No abnormal intraperitoneal fluid. No free air. Ventral Wall: No hernias. Abdominal Nodes: No retroperitoneal or mesenteric adenopathy by size criteria. Vessels: Aorta and inferior vena cava are normal in size. PELVIS: Pelvic Organs: Unremarkable. Bladder: Unremarkable. Pelvic Nodes: No enlarged lymph nodes. Miscellaneous: No hernias are seen. Bones: Unremarkable. IMPRESSION: No source of pain identified. Prior cholecystectomy. Several water density simple appearing renal cortical cysts are noted bilaterally. Source of current pain is not identified. Dictated by: Ronni Judge M.D. on 06/15/2021 at 12:55 Approved by: Ronni Judge M.D. on 06/15/2021 at 12:56
== END 2021-06-15 14:30 | disposition home or self-care (01) ==
PROVIDERS: Emergency Provider Emergency Medicine; PCP Family Medicine
DX: R10.84 Generalized abdominal pain (principal); B02.9 Zoster without complications; B02.29 Other postherpetic nervous system involvement
CPT/HCPCS: 36415; 74177; 80053; 83690; 85025; 99284; Q9967

== ENCOUNTER 2021-07-12 18:33 | Observation (INO) | payer OTHER, SELFPAY ==
[2018-03-11 05:37] VITALS: BMI 23.8
[2021-07-12] VITALS (11 sets, daily range): BP systolic 128–191; BP diastolic 77–88; PULSE 80–87; RESP 16–24; TEMP 36.1; O2SAT 92–97; BMI 22.3
--- NOTE | 2021-07-12 18:36 | DI.CT.S_ITS ---
PROCEDURE: CT CHEST ABD PEL W CON INDICATIONS: fall 4ft onto concrete TECHNIQUE: After the administration of intravenous contrast, 5 mm thick sections acquired from the lung apices to the symphysis. 2.5 mm thick coronal and sagittal reformats were acquired. Additional 7 mm thick coronal maximum intensity projection (MIP) reformats acquired through the lungs. Optional 10-minute delayed imaging may be performed from the kidneys to the bladder. For radiation dose reduction, the following was used: automated exposure control, adjustment of mA and/or kV according to patient size. COMPARISON: [facility], CT, CT ABDOMEN PELVIS W CON, 06/15/2021, 12:44. FINDINGS: Image quality: There are motion artifacts. CHEST: Lungs: Right upper lobe infiltrates consistent with pneumonia or pulmonary contusion. No acute airspace opacities. No pneumothorax or hemothorax. Central and peripheral airways appear patent and normal in caliber. Mediastinum: No mediastinal hematomas. Heart size is normal. Moderate coronary artery calcifications. No pericardial effusion. Thoracic aorta and pulmonary arteries demonstrate normal size and enhancement. No mediastinal or hilar adenopathy. Esophagus is normal in caliber. Small hiatal hernia. Chest wall: No rib fractures. No subcutaneous emphysema. No axillary or supraclavicular adenopathy. Thyroid gland is normal. ABDOMEN: Solid organs: Liver is normal in size and enhancement, without lacerations. Gallbladder is surgically absent. Biliary system is non-dilated. Pancreas enhances normally, without transection. Spleen is normal in size and enhancement, without lacerations. No adrenal hematomas. Both kidneys enhance normally, without hydronephrosis or lacerations. There are multiple renal cysts bilaterally. There is a 1 cm hyperdense nodule in the anterior cortex of the right kidney. Peritoneum and bowel: No free fluid or air. Unenhanced bowel loops demonstrate normal wall thickness and caliber. Normal appendix. Diverticulosis without diverticulitis. Nodes and vessels: No retroperitoneal or mesenteric adenopathy. Aorta and inferior vena cava are normal in size and enhancement. Miscellaneous: No ventral hernias. PELVIS: Genitourinary: Bladder wall thickness is normal. Prostate is enlarged. Miscellaneous: Bilateral fat containing inguinal hernias. No inguinal adenopathy. Bones: Pelvic ring and hip joints appear intact. No vertebral compression fractures. IMPRESSION: 1. Infiltrates in right upper lobe suspicious for pneumonia. A differential diagnosis is pulmonary contusion. 2. No traumatic injuries in abdomen or pelvis. 3. Multiple renal cysts bilaterally. There is a 1 cm hyperdense nodule in the anterior cortex of the right kidney, probably a hyperdense cyst. A nonurgent follow-up ultrasound recommended to document cystic nature of the nodule. 4. Diverticulosis without diverticulitis. 5. Enlarged prostate. Dictated by: Marco Mcleod M.D. on 07/12/2021 at 19:35 Approved by: Marco Mcleod M.D. on 07/12/2021 at 19:44
--- NOTE | 2021-07-12 18:36 | DI.CT.S_ITS ---
PROCEDURE: CT HEAD/BRAIN WO CON INDICATIONS: altered mental status TECHNIQUE: Noncontrast 4.5 mm thick angled axial sections acquired from the foramen magnum to the vertex, with coronal and sagittal reformats. For radiation dose reduction, the following was used: automated exposure control, adjustment of mA and/or kV according to patient size. COMPARISON: [facility], MR, BRAIN WITHOUT CONTRAST, 06/11/2012, 11:50. FINDINGS: Image quality: Excellent. CSF spaces: Basal cisterns are patent. No extra-axial fluid collections. The ventricles are symmetric in size and shape. Brain: No intracranial bleeds or masses. Small lacunar infarct in the left basal ganglia versus dilated perivascular space. There is moderate cerebral volume loss for age, with resultant ventricular and sulcal prominence. There are moderate periventricular and deep white matter chronic small vessel ischemic changes. There is intracranial internal carotid artery atherosclerosis. Skull and face: Calvarium and visualized facial bones appear intact, without suspicious lesions. Sinuses: There is an air-fluid level in the left maxillary sinus. There is left ethmoid and maxillary sinus mucosal thickening. Possible osteoma in frontal sinus at midline. Mastoids are clear. IMPRESSION: 1. No acute intracranial abnormalities. 2. Cerebral volume loss and chronic microvascular ischemic changes. 3. Left ethmoid and maxillary sinusitis. Dictated by: Marco Mcleod M.D. on 07/12/2021 at 19:22 Approved by: Marco Mcleod M.D. on 07/12/2021 at 19:26
--- NOTE | 2021-07-12 18:36 | DI.CT.S_ITS ---
PROCEDURE: CT ANGIO HEAD AND NECK INDICATIONS: fall TECHNIQUE: After the administration of intravenous contrast, 1 mm thick sections acquired from the aortic arch through the [place] of [place]. Post-contrast 4.5 mm thick sections then re-acquired from the foramen magnum to the vertex. COMPARISON: [facility], CT, CT HEAD/BRAIN WO CON, 07/12/2021, 18:48. FINDINGS: Cerebral CT Angiogram: Internal carotid arteries: Mild calcified atherosclerotic plaque noted involving the cavernous portions of both internal carotid arteries without hemodynamically significant stenosis. Anterior cerebral arteries: Hypoplasia/aplasia of the right A1 AMBROCIO noted. The A2 segment is supplied by a widely patent posterior communicating artery. Remainder of the distal vasculature unremarkable. Middle cerebral arteries: Unremarkable. No significant stenosis. No occlusion. No aneurysm. Posterior cerebral arteries: Unremarkable. No significant stenosis. No occlusion. No aneurysm. Basilar artery: Unremarkable. No significant stenosis. No occlusion. No aneurysm. Vertebral arteries: Unremarkable as visualized. Dural venous sinuses: Unremarkable given phase of enhancement. Other: Arterial phase brain parenchyma is unremarkable. Neck CT Angiogram: Internal carotid arteries: Mild atherosclerotic plaque in both proximal internal carotid arteries noted without hemodynamically significant stenosis. Common carotid arteries: Unremarkable. No significant stenosis. No dissection or occlusion. External carotid arteries: Unremarkable. No occlusion. Vertebral arteries: Unremarkable. No significant stenosis. No dissection or occlusion. Other: Multilevel degenerative disc disease and arthropathy in the cervical spine results in moderate central stenosis at C4-5, C5-6 and C6-7. Ground-glass density in the right upper lobe is partially imaged posteriorly Aortic Arch and Mediastinum: Partially visualized aortic arch unremarkable without evidence of aneurysm. Origins of the great vessels unremarkable. IMPRESSION: 1. Mild atherosclerotic plaque without evidence of hemodynamically significant stenosis, large vessel occlusion, aneurysm or vascular malformation in the head and neck. 2. Partially visualized right upper lobe pulmonary ground-glass density may reflect pulmonary edema or pneumonitis 3. Multilevel degenerative disc disease and arthropathy results in moderate central stenosis at C4-5, C5-6 and C6-7. Any quantitative measurements of stenosis were performed using NASCET criteria. Approved by: Javier Mayberry M.D. on 07/12/2021 at 18:41
--- NOTE | 2021-07-12 18:36 | DI.CT.S_ITS ---
PROCEDURE: CT CERVICAL SPINE WO CON INDICATIONS: fall TECHNIQUE: Noncontrast 3 mm thick sections acquired from the skull base to the T4 level. Sagittal and coronal reformats were then constructed. For radiation dose reduction, the following was used: automated exposure control, adjustment of mA and/or kV according to patient size. COMPARISON: [facility], , C-SPINE WITHOUT CONTRAST, 06/11/2012, 11:33. FINDINGS: Image quality: Excellent. Bones: No fractures or dislocations. Degenerative disc disease, [id number] at C4-C5, C5-C6 and C6-C7. Bilateral facet arthropathy, most pronounced at C3-C4 and C4-C5 on the right. Visualized superior ribs are intact. Soft tissues: Prevertebral soft tissues are normal in thickness. No paravertebral hematomas. No apical pneumothoraces. Right upper lobe infiltrates consistent with pneumonia. Left maxillary sinus mucosal thickening and air-fluid level. IMPRESSION: 1. No acute cervical spine fracture. 2. Degenerative changes in cervical spine. 3. Left medullary sinusitis. 4. Right upper lobe infiltrates consistent with pneumonia. Dictated by: Marco Mcleod M.D. on 07/12/2021 at 19:26 Approved by: Marco Mcleod M.D. on 07/12/2021 at 19:30
[2021-07-12 18:53] LABS: INR 1.2 (0.9-1.3); Prothrombin Time 12.8 SECONDS (10.1-12.7)
[2021-07-12 18:55] LABS: PTT Partial Thromboplastin Tim 32 SECONDS (26.4-36.2)
[2021-07-12 18:57] LABS: Add Manual Diff / Slide Review NO; Basophils Absolute Auto 100 /uL (0-100); Basophils Percent Auto 0.6 % (0-2); Eosinophils Absolute Auto 0 /uL (0-450); Eosinophils Percent Auto 0.2 % (2-4); Hematocrit 36.7 % (41-53); Hemoglobin 12.5 g/dL (13.5-17.5); Lymphocytes Absolute Auto 2100 /uL (1100-4500); Lymphocytes Percent Auto 24.9 % (25-40); Mean Corpuscular HGB Conc 33.9 % (30-36); Mean Corpuscular Hemoglobin 29.3 PG (26-34); Mean Corpuscular Volume 86.5 fL (80-100); Monocytes Absolute Auto 800 /uL (0-900); Monocytes Percent Auto 9.3 % (3-14); Neutrophils Absolute Auto 5500 /uL (1500-7000); Platelet Count 350 X10^3/uL (150-400); Red Blood Cell Count 4.25 X10^6/uL (4.5-5.9); Red Cell Distribution Width 15.3 % (11.6-14.8); White Blood Cell Count 8.4 X10^3/uL (4.5-11.0)
[2021-07-12 18:58] LABS: Alanine Aminotransferase 43 IU/L (<50); Albumin 4.4 g/dL (3.5-5.0); Albumin Globulin Ratio 1.3 (1.0-2.8); Alkaline Phosphatase 131 U/L (38-126); Aspartate Aminotransferase 46 IU/L (17-59); BUN Creatinine Ratio 21.3 (6-22); Bilirubin Total 0.5 mg/dL (0.2-1.3); Blood Urea Nitrogen 17 mg/dL (9-20); Calcium 9.6 mg/dL (8.4-10.2); Carbon Dioxide 28 mmol/L (22-32); Chloride 102 mmol/L (98-107); Creatine Kinase 42 U/L (55-170); Estimated Glomerular Filt Rate > 60.0 mL/min (>60); Ethanol (ETOH) < 10 mg/dL; Globulin 3.5 g/dL (1.7-4.1); Glucose 120 mg/dL (80-110); HEMOLYSIS < 15 (0-50); Lipase 68 U/L (23-300); Potassium 4.3 mmol/L (3.4-5.1); Sodium 136 mmol/L (137-145); Total Protein 7.9 g/dL (6.3-8.2)
--- NOTE | 2021-07-12 19:07 | ED.AMS ---
HPI - Altered Mental Status General Chief Complaint: Altered Mental Status Stated Complaint: GLF Time Seen by Provider: 07/12/21 18:36 Source: EMS Mode of arrival: EMS History of Present Illness HPI narrative: Patient is a 86-year-old male who presents this altered mental status. According to the he has had increasing falls over the last couple of days. She states that he has sciatica and shingles and his right leg frequently gives out on him. She reports that he has fallen out of bed and fallen while going to the bathroom today. Throughout the day he has had decreasing mental status which prompted EMS call. He actually fell 2 days ago This morning he rolled out of bed. Patient was taken to his primary care provider for evaluation. It looks as though he has an outbreak of she all which may be leading to progressive weakness and decreased ambulation. There was a referral to home health and home PT. He is currently on Neurontin and oxycodone. thinks that maybe medications are causing a decrease in mental status. She reports that he was shivering cold in required multiple blankets and heating pad earlier this afternoon. EMS reports that they think she fell possibly 4 ft onto a concrete pad. No evidence of severe trauma he is not on any anticoagulation except aspirin. The patient is able to say yes and no and follow some come pain and but overall is not a good historian. This is significant change from previous mental status. Related Data Home Medications Medication Instructions Recorded Confirmed CA PANTOTHENATE/FOLIC ACID/VIT 1 liq PO QDAY #0 11/18/11 06/07/21 (MULTIVITAMIN) VITAMIN D (Vitamin D3) 1,000 unit PO QDAY #0 11/18/11 06/07/21 aspirin 81 mg chewable tablet 81 mg PO DAILY #0 06/03/12 06/07/21 lactobacillus combination no.4 3 3,000 mmu cells PO DAILY 05/31/21 06/07/21 billion cell capsule (Probiotic) Previous Rx's Medication Instructions Recorded simvastatin 20 mg tablet 20 mg PO HS #90 tab 08/07/19 allopurinol 100 mg tablet 100 mg PO DAILY #90 tab 11/25/19 citalopram 40 mg tablet 40 mg PO DAILY #90 tab 02/23/20 atenolol 50 mg tablet 100 mg PO DAILY #180 tab 07/05/20 finasteride 5 mg tablet 5 mg PO DAILY #90 tab 02/01/21 oxycodone-acetaminophen 5 mg-325 1 tab PO Q6H PRN #15 tab 06/15/21 mg tablet gabapentin 300 mg capsule See Rx Instructions PO BID PRN 06/20/21 #150 cap oxycodone 5 mg tablet 5 mg PO BEDTIME #20 tab 07/11/21 Allergies Allergy/AdvReac Type Severity Reaction Status Date / Time carbamazepine [CARBAMAZEPINE] Allergy Mild HIVES Verified 07/12/21 18:44 codeine [CODEINE] Allergy Mild CONSTIPATIO Verified 07/12/21 18:44 N tamsulosin [TAMSULOSIN] Allergy Mild REAL BAD Verified 07/12/21 18:44 COUGH morphine [MORPHINE] AdvReac Unknown severe Verified 07/12/21 18:44 nausea/vomiting Review of Systems Review of Systems ROS Unobtainable: Unobtainable due to medical condition 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) Pelvic somatic dysfunction Piriformis syndrome of left side Polymyalgia rheumatica Sacral region somatic dysfunction Small bowel obstruction Somatic dysfunction of lower extremity 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) Trigeminal neuralgia Zoster Surgical History H/O prostate biopsy H/O total cystectomy History of angioplasty (2001) History of gastrointestinal surgery Hx of inguinal hernia surgery Status post cholecystectomy Family History Father Macular degeneration Sister Hypertension Social History marital status: number of children: 0 household members: spouse Smoking Status: Never smoker alcohol intake: current substance use type: does not use caffeine: Yes Smoking Status: Never smoker alcohol intake frequency: a few times a week Substance Use Type: does not use Exam Initial Vital Signs Initial Vital Signs: Vital Signs Temperature 97.0 F L 07/12/21 18:22 Pulse Rate 84 07/12/21 18:22 Respiratory Rate 16 07/12/21 18:22 Blood Pressure 191/85 H 07/12/21 18:22 Pulse Oximetry 92 07/12/21 18:22 GENERAL: 86-year-old male response to voice and painful stimuli able to follow some commands able to answer is some question HEENT: Head atraumatic,EOMI, pupils reactive,minimal right facial droop NECK in C-collar CARDIOVASCULAR: Regular rate and rhythm without murmurs, rubs or gallops. RESPIRATORY: Breath sounds equal bilaterally, no wheezes rales or rhonchi. ABDOMEN: Soft, nontender. Normoactive bowel sounds all 4 quadrants. No guarding or rebound. EXTREMITIES: Normal range of motion, no clubbing or edema. Neurovascularly intact NEUROLOGICAL: Alert and oriented x2. 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 Scores GCS [place] coma scale eye opening: To sound [place] coma scale verbal response: Confused Ophelia coma scale motor response: Obey commands [place] coma scale total score: 13 Course Orders Ordered: ED Orders 07/12/21 18:30 Complete Blood Count AUTO DIFF Stat Comprehensive Metabolic Panel Stat Ethanol (ETOH) Stat Lipase Stat Partial Thromboplastin Time Stat Procalcitonin Stat Prothrombin Time INR Stat Troponin & CK Cardiac Panel Stat 07/12/21 18:36 CT angio head and neck Stat CT cervical spine wo con Stat CT chest abd pel w con Stat CT head/brain wo con Stat 07/12/21 18:39 EKG-12 Lead Stat 07/12/21 18:55 Ammonia (NH3) Stat Lactate (Lactic Acid) Stat 07/12/21 19:49 Blood Culture Stat 07/12/21 20:00 Urinalysis and Microscopic Stat Urine Drug Screen, Rapid Stat 07/12/21 20:30 COVID19 - ADMIT (YAM CURER swab/PCR) Stat 07/12/21 21:00 EKG-12 Lead Stat 07/12/21 21:09 Troponin I Stat 07/12/21 22:52 Consult to Discharge Planning Routine Consult to Occupational Therapy Evaluate & Treat Consult to Physical Therapy Evaluate & Treat 07/13/21 05:00 Basic Metabolic Panel Routine Complete Blood Count AUTO DIFF Routine Acetaminophen (Acetaminophen 325 Mg Tablet) 650 mg PO Q6HR PRN PRN Reason: Fever/Mild Pain (1-3) Last Admin: 07/13/21 00:36 Dose: 650 mg Documented by: ENRIQUETA Allopurinol (Allopurinol 100 Mg Tablet) 100 mg PO DAILY [facility] Aspirin (Aspirin 81 Mg Chew Tab) 81 mg PO DAILY [facility] Atenolol (Atenolol 50 Mg Tablet) 100 mg PO DAILY [facility] Atorvastatin Calcium (Atorvastatin 20 Mg Tablet) 10 mg PO BEDTIME SOFÍA Last Admin: 07/13/21 00:36 Dose: 10 mg Documented by: ENRIQUETA Citalopram Hydrobromide (Citalopram 10 Mg Tablet) 40 mg PO DAILY [facility] Finasteride (Finasteride 5 Mg Tablet) 5 mg PO DAILY [facility] Dextrose/Sodium Chloride (Dextrose 5%-0.9% Ns) 1,000 mls @ 80 mls/hr IV CONT [facility] Last Admin: 07/13/21 00:37 Dose: 80 mls/hr Documented by: ENRIQUETA Naloxone HCl (Naloxone 0.4 Mg/Ml Vial) 0.2 mg IV Q2MIN PRN PRN Reason: Opiate Reversal Ondansetron HCl (Ondansetron 4 Mg/2 Ml Inj) 4 mg IV Q8HR PRN PRN Reason: Nausea And Vomiting Vitamin D (Cholecalciferol (Vitamin D3) 1,000 Unit Tablet) 1,000 unit PO DAILY [facility] Discontinued Medications Sodium Chloride (Normal Saline 0.9%) 1,000 mls @ 150 mls/hr IV CONT [facility] Last Infusion: 07/12/21 22:15 Dose: 0 mls/hr Documented by: Admin: 07/12/21 20:10 Dose: 150 mls/hr Documented by: JAVIER Vital Signs Vital signs: Vital Signs - 8 hr 07/12/21 19:28 07/12/21 19:30 07/12/21 20:00 Pulse Rate 87 85 85 Respiratory Rate 21 22 24 Blood Pressure 174/79 H 171/81 H 161/82 H Pulse Oximetry 97 96 94 07/12/21 20:17 07/12/21 20:30 07/12/21 21:00 Pulse Rate 80 87 84 Respiratory Rate Blood Pressure 176/85 H 146/79 H Pulse Oximetry 95 96 96 07/12/21 21:30 Pulse Rate 85 Respiratory Rate Blood Pressure 141/77 H Pulse Oximetry 96 MDM - Altered Mental Status Lab Data Result diagrams: 07/12/21 18:30 07/12/21 18:30 Labs: Lab Results 07/12/21 07/12/21 07/12/21 Range/Units 18:30 18:30 18:30 WBC 8.4 (4.5-11.0) X10^3/uL RBC 4.25 L (4.5-5.9) X10^6/uL Hgb 12.5 L (13.5-17.5) g/dL Hct 36.7 L (41-53) % MCV 86.5 (80-100) fL MCH 29.3 (26-34) PG MCHC 33.9 (30-36) % RDW 15.3 H (11.6-14.8) % Plt Count 350 (150-400) X10^3/uL Neut % (Auto) 65.0 (50-75) % Lymph % (Auto) 24.9 L (25-40) % [place] % (Auto) 9.3 (3-14) % Eos % (Auto) 0.2 L (2-4) % Baso % (Auto) 0.6 (0-2) % Neut # (Auto) 5500 (7774-4820) /uL Lymph # (Auto) 2100 (9092-6942) /uL [place] # (Auto) 800 (0-900) /uL Eos # (Auto) 0 (0-450) /uL Baso # (Auto) 100 (0-100) /uL PT 12.8 H (10.1-12.7) SECONDS INR 1.2 (0.9-1.3) APTT 32 (26.4-36.2) SECONDS Sodium 136 L (137-145) mmol/L Potassium 4.3 (3.4-5.1) mmol/L Chloride 102 (98-107) mmol/L Carbon Dioxide 28 (22-32) mmol/L BUN 17 (9-20) mg/dL Creatinine 0.80 (0.66-1.25) mg/dL Estimated GFR > 60.0 (>60) mL/min BUN/Creatinine Ratio 21.3 (6-22) Glucose 120 H (80-110) mg/dL Lactate (0.7-2.1) mmol/L Calcium 9.6 (8.4-10.2) mg/dL Total Bilirubin 0.5 (0.2-1.3) mg/dL AST 46 (17-59) IU/L ALT 43 (<50) IU/L Alkaline Phosphatase 131 H (38-126) U/L Ammonia (9-30) umol/L Total Creatine Kinase 42 L (55-170) U/L CK-MB (CK-2) TNP CK-MB (CK-2) Rel Index TNP Troponin I < 0.012 (0.01-0.034) ng/mL Total Protein 7.9 (6.3-8.2) g/dL Albumin 4.4 (3.5-5.0) g/dL Globulin 3.5 (1.7-4.1) g/dL Albumin/Globulin Ratio 1.3 (1.0-2.8) Lipase 68 (23-300) U/L Procalcitonin 0.08 (<0.5) ng/mL Urine Color Urine Appearance Urine pH (4.5-8.0) Ur Specific [place] (1.000-1.035) Urine Protein (Negative) Urine Glucose (UA) (Negative) g/dL Urine Ketones (NEGATIVE) Urine Occult Blood (Negative) Urine Nitrate (Negative) Urine Bilirubin (NEGATIVE) Urine Urobilinogen (0.2) E.U./dL Ur Leukocyte Esterase (NEGATIVE) Urine RBC (0-5/HPF) Urine WBC (0-5/HPF) Urine Bacteria (None) Ur Culture Indicated? U Opiates 300ng/mL cut (Negative) Ur Oxycodone Screen (Negative) Urine Methadone Screen (Negative) Ur Barbiturates Screen (Negative) U Tricyclic Antidepress (Negative) Ur Phencyclidine Scrn (Negative) Ur Amphetamines Screen (Negative) U Methamphetamines Scrn (Negative) Ur MDMA Scrn (Ecstasy) (Negative) U Benzodiazepines Scrn (Negative) Urine Cocaine Screen (Negative) U Marijuana (THC) Screen (Negative) Ethyl Alcohol < 10 ( - 10) mg/dL SARS-CoV-2 (PCR) (Negative) 09/21/21 09/21/21 09/21/21 Range/Units 18:55 18:55 20:00 WBC (4.5-11.0) X10^3/uL RBC (4.5-5.9) X10^6/uL Hgb (13.5-17.5) g/dL Hct (41-53) % MCV (80-100) fL MCH (26-34) PG MCHC (30-36) % RDW (11.6-14.8) % Plt Count (150-400) X10^3/uL Neut % (Auto) (50-75) % Lymph % (Auto) (25-40) % [place] % (Auto) (3-14) % Eos % (Auto) (2-4) % Baso % (Auto) (0-2) % Neut # (Auto) (0823-7410) /uL Lymph # (Auto) (1361-4201) /uL [place] # (Auto) (0-900) /uL Eos # (Auto) (0-450) /uL Baso # (Auto) (0-100) /uL PT (10.1-12.7) SECONDS INR (0.9-1.3) APTT (26.4-36.2) SECONDS Sodium (137-145) mmol/L Potassium (3.4-5.1) mmol/L Chloride (98-107) mmol/L Carbon Dioxide (22-32) mmol/L BUN (9-20) mg/dL Creatinine (0.66-1.25) mg/dL Estimated GFR (>60) mL/min BUN/Creatinine Ratio (6-22) Glucose (80-110) mg/dL Lactate 1.6 (0.7-2.1) mmol/L Calcium (8.4-10.2) mg/dL Total Bilirubin (0.2-1.3) mg/dL AST (17-59) IU/L ALT (<50) IU/L Alkaline Phosphatase (38-126) U/L Ammonia < 9 L (9-30) umol/L Total Creatine Kinase (55-170) U/L CK-MB (CK-2) CK-MB (CK-2) Rel Index Troponin I (0.01-0.034) ng/mL Total Protein (6.3-8.2) g/dL Albumin (3.5-5.0) g/dL Globulin (1.7-4.1) g/dL Albumin/Globulin Ratio (1.0-2.8) Lipase (23-300) U/L Procalcitonin (<0.5) ng/mL Urine Color Urine Appearance Urine pH (4.5-8.0) Ur Specific [place] (1.000-1.035) Urine Protein (Negative) Urine Glucose (UA) (Negative) g/dL Urine Ketones (NEGATIVE) Urine Occult Blood (Negative) Urine Nitrate (Negative) Urine Bilirubin (NEGATIVE) Urine Urobilinogen (0.2) E.U./dL Ur Leukocyte Esterase (NEGATIVE) Urine RBC (0-5/HPF) Urine WBC (0-5/HPF) Urine Bacteria (None) Ur Culture Indicated? U Opiates 300ng/mL cut Negative (Negative) Ur Oxycodone Screen Positive H (Negative) Urine Methadone Screen Negative (Negative) Ur Barbiturates Screen Negative (Negative) U Tricyclic Antidepress Negative (Negative) Ur Phencyclidine Scrn Negative (Negative) Ur Amphetamines Screen Negative (Negative) U Methamphetamines Scrn Negative (Negative) Ur MDMA Scrn (Ecstasy) Negative (Negative) U Benzodiazepines Scrn Negative (Negative) Urine Cocaine Screen Negative (Negative) U Marijuana (THC) Screen Negative (Negative) Ethyl Alcohol ( - 10) mg/dL SARS-CoV-2 (PCR) (Negative) 07/12/21 07/12/21 07/12/21 Range/Units 20:00 20:30 21:09 WBC (4.5-11.0) X10^3/uL RBC (4.5-5.9) X10^6/uL Hgb (13.5-17.5) g/dL Hct (41-53) % MCV (80-100) fL MCH (26-34) PG MCHC (30-36) % RDW (11.6-14.8) % Plt Count (150-400) X10^3/uL Neut % (Auto) (50-75) % Lymph % (Auto) (25-40) % [place] % (Auto) (3-14) % Eos % (Auto) (2-4) % Baso % (Auto) (0-2) % Neut # (Auto) (7771-9822) /uL Lymph # (Auto) (3576-9021) /uL [place] # (Auto) (0-900) /uL Eos # (Auto) (0-450) /uL Baso # (Auto) (0-100) /uL PT (10.1-12.7) SECONDS INR (0.9-1.3) APTT (26.4-36.2) SECONDS Sodium (137-145) mmol/L Potassium (3.4-5.1) mmol/L Chloride (98-107) mmol/L Carbon Dioxide (22-32) mmol/L BUN (9-20) mg/dL Creatinine (0.66-1.25) mg/dL Estimated GFR (>60) mL/min BUN/Creatinine Ratio (6-22) Glucose (80-110) mg/dL Lactate (0.7-2.1) mmol/L Calcium (8.4-10.2) mg/dL Total Bilirubin (0.2-1.3) mg/dL AST (17-59) IU/L ALT (<50) IU/L Alkaline Phosphatase (38-126) U/L Ammonia (9-30) umol/L Total Creatine Kinase (55-170) U/L CK-MB (CK-2) CK-MB (CK-2) Rel Index Troponin I 0.014 (0.01-0.034) ng/mL Total Protein (6.3-8.2) g/dL Albumin (3.5-5.0) g/dL Globulin (1.7-4.1) g/dL Albumin/Globulin Ratio (1.0-2.8) Lipase (23-300) U/L Procalcitonin (<0.5) ng/mL Urine Color Yellow Urine Appearance Clear Urine pH 7.0 (4.5-8.0) Ur Specific [place] <=1.005 (1.000-1.035) Urine Protein Negative (Negative) Urine Glucose (UA) Negative (Negative) g/dL Urine Ketones Trace H (NEGATIVE) Urine Occult Blood Trace-intact (Negative) Urine Nitrate Negative (Negative) Urine Bilirubin Negative (NEGATIVE) Urine Urobilinogen 0.2 (0.2) E.U./dL Ur Leukocyte Esterase Negative (NEGATIVE) Urine RBC 5-10/hpf H (0-5/HPF) Urine WBC 0-1/hpf (0-5/HPF) Urine Bacteria None seen (None) Ur Culture Indicated? Cult not indicated U Opiates 300ng/mL cut (Negative) Ur Oxycodone Screen (Negative) Urine Methadone Screen (Negative) Ur Barbiturates Screen (Negative) U Tricyclic Antidepress (Negative) Ur Phencyclidine Scrn (Negative) Ur Amphetamines Screen (Negative) U Methamphetamines Scrn (Negative) Ur MDMA Scrn (Ecstasy) (Negative) U Benzodiazepines Scrn (Negative) Urine Cocaine Screen (Negative) U Marijuana (THC) Screen (Negative) Ethyl Alcohol ( - 10) mg/dL SARS-CoV-2 (PCR) Negative (Negative) Imaging Data CT scan - head: Radiologist's Impression: PROCEDURE:? CT HEAD/BRAIN WO CON ? INDICATIONS:? altered mental status ? TECHNIQUE:? Noncontrast 4.5 mm thick angled axial sections acquired from the foramen magnum to the vertex, with coronal and sagittal reformats.? For radiation dose reduction, the following was used:? automated exposure control, adjustment of mA and/or kV according to patient size.? ? COMPARISON:[facility], MR, BRAIN WITHOUT CONTRAST, 06/11/2012, 11:50. ? FINDINGS:? Image quality:? Excellent.? ? CSF spaces:? Basal cisterns are patent.? No extra-axial fluid collections.? The ventricles are symmetric in size and shape.? ? Brain:? No intracranial bleeds or masses.? Small lacunar infarct in the left basal ganglia versus dilated perivascular space. There is moderate cerebral volume loss for age, with resultant ventricular and sulcal prominence.? There are moderate periventricular and deep white matter chronic small vessel ischemic changes.? There is intracranial internal carotid artery atherosclerosis.? ? Skull and face:? Calvarium and visualized facial bones appear intact, without suspicious lesions.? ? Sinuses:? There is an air-fluid level in the left maxillary sinus.? There is left ethmoid and maxillary sinus mucosal thickening.? Possible osteoma in frontal sinus at midline.? Mastoids? are clear.? ? IMPRESSION:? ? 1. No acute intracranial abnormalities. 2. Cerebral volume loss and chronic microvascular ischemic changes. 3. Left ethmoid and maxillary sinusitis.? Dictated by: Marco Mcleod M.D. on 07/12/2021 at 19:22 ? ? Approved by: Marco Mcleod M.D. on 07/12/2021 at 19:26 CT - cervical spine: Radiologist's Impression: PROCEDURE:? CT CERVICAL SPINE WO CON ? INDICATIONS:? fall ? TECHNIQUE:? Noncontrast 3 mm thick sections acquired from the skull base to the T4 level.? Sagittal and coronal reformats were then constructed.? For radiation dose reduction, the following was used:? automated exposure control, adjustment of mA and/or kV according to patient size.? ? COMPARISON:? [facility], MR, C-SPINE WITHOUT CONTRAST, 06/11/2012, 11:33. ? FINDINGS:? Image quality:? Excellent.? ? Bones:? No fractures or dislocations.? Degenerative disc disease, [id number] at C4-C5, C5-C6 and C6-C7.? Bilateral facet arthropathy, most pronounced at C3-C4 and C4-C5 on the right.? Visualized superior ribs are intact.? ? Soft tissues:? Prevertebral soft tissues are normal in thickness.? No paravertebral hematomas.? No apical pneumothoraces.? Right upper lobe infiltrates consistent with pneumonia.? Left maxillary sinus mucosal thickening and air-fluid level. ? IMPRESSION:? ? 1. No acute cervical spine fracture. 2. Degenerative changes in cervical spine. 3. Left medullary sinusitis. 4.? Right upper lobe infiltrates consistent with pneumonia. ? Dictated by: Marco Mcleod M.D. on 07/12/2021 at 19:26 ?? CTA - brain/neck: Radiologist's Impression: PROCEDURE:? CT ANGIO HEAD AND NECK ? INDICATIONS:? fall ? TECHNIQUE:? ? After the administration of intravenous contrast, 1 mm thick sections acquired from the aortic arch through the [place] of [place].? Post-contrast 4.5 mm thick sections then re-acquired from the foramen magnum to the vertex.? ? COMPARISON:? [facility], CT, CT HEAD/BRAIN WO CON, 07/12/2021, 18:48. ? FINDINGS: ? Cerebral CT Angiogram: ? Internal carotid arteries:? Mild calcified atherosclerotic plaque noted involving the cavernous portions of both internal carotid arteries without hemodynamically significant stenosis.? ? Anterior cerebral arteries:? Hypoplasia/aplasia of the right A1 AMBROCIO noted. The A2 segment is supplied by a widely patent posterior communicating artery. Remainder of the distal vasculature unremarkable. ? Middle cerebral arteries:? Unremarkable.? No significant stenosis.? No occlusion.? No aneurysm. ? Posterior cerebral arteries:? Unremarkable.? No significant stenosis.? No occlusion.? No aneurysm. ? Basilar artery:? Unremarkable.? No significant stenosis.? No occlusion.? No aneurysm. ? Vertebral arteries:? Unremarkable as visualized. ? Dural venous sinuses:? Unremarkable given phase of enhancement. Other:? Arterial phase brain parenchyma is unremarkable. ? Neck CT Angiogram: ? Internal carotid arteries:? Mild atherosclerotic plaque in both proximal internal carotid arteries noted without hemodynamically significant stenosis. ? Common carotid arteries:? Unremarkable.? No significant stenosis.? No dissection or occlusion. ? External carotid arteries:? Unremarkable.? No occlusion. ? Vertebral arteries:? Unremarkable.? No significant stenosis.? No dissection or occlusion. ? Other:? Multilevel degenerative disc disease and arthropathy in the cervical spine results in moderate central stenosis at C4-5, C5-6 and C6-7.? Ground-glass density in the right upper lobe is partially imaged posteriorly ? Aortic Arch and Mediastinum:? Partially visualized aortic arch unremarkable without evidence of aneurysm. Origins of the great vessels unremarkable. ? IMPRESSION: ? 1. Mild atherosclerotic plaque without evidence of hemodynamically significant stenosis, large vessel occlusion, aneurysm or vascular malformation in the head and neck. ? 2. Partially visualized right upper lobe pulmonary ground-glass density may reflect pulmonary edema or pneumonitis ? 3. Multilevel degenerative disc disease and arthropathy results in moderate central stenosis at C4-5, C5-6 and C6-7.? ? ? Any quantitative measurements of stenosis were performed using NASCET criteria.? Approved by: Javier Mayberry M.D. on 07/12/2021 at 18:41? CT scan - chest: Radiologist's Impression: PROCEDURE:? CT CHEST ABD PEL W CON ? INDICATIONS:? fall 4ft onto concrete ? TECHNIQUE:? After the administration of intravenous contrast, 5 mm thick sections acquired from the lung apices to the symphysis.? 2.5 mm thick coronal and sagittal reformats were acquired. ?Additional 7 mm thick coronal maximum intensity projection (MIP) reformats acquired through the lungs.? Optional 10-minute delayed imaging may be performed from the kidneys to the bladder.? For radiation dose reduction, the following was used:? automated exposure control, adjustment of mA and/or kV according to patient size.? ? COMPARISON:? [facility], CT, CT ABDOMEN PELVIS W CON, 06/15/2021, 12:44. ? FINDINGS:? Image quality:? There are motion artifacts.? ? CHEST:? Lungs:? Right upper lobe infiltrates consistent with pneumonia or pulmonary contusion.? No acute airspace opacities.? No pneumothorax or hemothorax.? Central and peripheral airways appear patent and normal in caliber.? ? Mediastinum:? No mediastinal hematomas.? Heart size is normal.? Moderate coronary artery calcifications.? No pericardial effusion.? Thoracic aorta and pulmonary arteries demonstrate normal size and enhancement.? No mediastinal or hilar adenopathy.? Esophagus is normal in caliber.? Small hiatal hernia.? ? Chest wall:? No rib fractures.? No subcutaneous emphysema.? No axillary or supraclavicular adenopathy.? Thyroid gland is normal.? ? ? ABDOMEN:? Solid organs:? Liver is normal in size and enhancement, without lacerations.? Gallbladder is surgically absent.? Biliary system is non-dilated.? Pancreas enhances normally, without transection.? Spleen is normal in size and enhancement, without lacerations.? No adrenal hematomas.? Both kidneys enhance normally, without hydronephrosis or lacerations. ?There are multiple renal cysts bilaterally.? There is a 1 cm hyperdense nodule in the anterior cortex of the right kidney. ? Peritoneum and bowel:? No free fluid or air.? Unenhanced bowel loops demonstrate normal wall thickness and caliber.? Normal appendix.? Diverticulosis without diverticulitis. ? Nodes and vessels:? No retroperitoneal or mesenteric adenopathy.? Aorta and inferior vena cava are normal in size and enhancement.? ? Miscellaneous:? No ventral hernias.? ? ? PELVIS:? Genitourinary:? Bladder wall thickness is normal.? Prostate is enlarged. ? Miscellaneous:? Bilateral fat containing inguinal hernias.? No inguinal adenopathy.? ? Bones:? Pelvic ring and hip joints appear intact.? No vertebral compression fractures.? ? ? IMPRESSION:? ? 1. Infiltrates in right upper lobe suspicious for pneumonia.? A differential diagnosis is pulmonary contusion. 2. No traumatic injuries in abdomen or pelvis. 3. Multiple renal cysts bilaterally.? There is a 1 cm hyperdense nodule in the anterior cortex of the right kidney, probably a hyperdense cyst.? A nonurgent follow-up ultrasound recommended to document cystic nature of the nodule. 4. Diverticulosis without diverticulitis. 5. Enlarged prostate.? Dictated by: Marco Mcleod M.D. on 07/12/2021 at 19:35 ? ? ECG Data Interpretation: 1. Sinus rhythm rate 87 NH interval 272 QRS 120 [id number], first-degree AV block noted and similar to prior. Right bundle-branch block is now present which is new. Also noted to have some ST depressions in precordial leads no ST elevations. Previously had some T-wave inversions in abnormality in V3 EKG 2. Sinus rhythm rate 85 persistent right bundle branch block and ST changes in V3 no ST elevations MDM Narrative Medical decision making narrative: Patient 86-year-old male comes in with confusing mixed picture of stroke versus trauma and fall. He has altered mental status overall extremely poor historian. He does not have any obvious or significant signs of trauma or fall is. He is not on any anti-platelet or anticoagulation medication. He does have history of shingles and right leg weakness. Right leg seems to be getting worse causing him to fall. Possible stroke with right facial droop and right leg weakness. Head CT and CT head and neck angio do not show any intracranial hemorrhage or large vessel occlusion. CT chest abdomen pelvis to not show any sign of infection or sign trauma. Blood work is surprisingly overall reassuring. No evidence of infection. CTs did actually show right upper lobe pneumonia however he does not have leukocytosis, cough or fever, procalcitonin lactic acid were also negative, it overall does not correlate clinically. states that he has been on a lot of pain medication and Neurontin for the right leg pain and weakness. This may be causing some of his decreased mental status. He was given Narcan by EMS and he did not have any response. EKG does show some new right bundle-branch block and ST depression 2- troponins. At this time possible metabolic encephalopathy secondary to medications. However unclear at this time. Dr. Ewing updated on patient's symptoms and test results agrees with observation at this time Discharge Plan Departure Patient Disposition: Admitted as Observation Clinical Impression: Acute metabolic encephalopathy Admit Date/Time: 07/12/21 21:54 Admit Provider: Girma Ewing
[2021-07-12 19:10] LABS: Troponin I < 0.012 ng/mL (0.01-0.034)
[2021-07-12 19:14] LABS: Procalcitonin 0.08 ng/mL (<0.5)
[2021-07-12 19:16] LABS: Ammonia (NH3) < 9 umol/L (9-30); Lactate (Lactic Acid) 1.6 mmol/L (0.7-2.1)
--- NOTE | 2021-07-12 20:04 | PC.NURSE ---
Unable to obtain accurate LKN, spouse at the bedside but she is uncertain of symptom onset.
[2021-07-12] MEDS: SODIUM CHLORIDE 0.9% 1,000 ML 150 ML IV (20:10)
--- NOTE | 2021-07-12 20:11 | PC.NURSE ---
Head CT, abd and chest
--- NOTE | 2021-07-12 20:12 | PC.NURSE ---
Patient arrives EMS, spouse followed by 10 mins to room. EMS states ground level fall and spouse reports assisted fall against bed and slid to floor. Patient arrived with altered LOC but quickly regained awareness after returning from CT scan. GCS 14. Patient appears shaky, weak and confused as to why he is in the ER. Spouse states patient has been taking quite a lot of pain meds recently but did not elaborate and seemed uncertain of the meds and the dosages.
--- NOTE | 2021-07-12 20:20 | PC.NURSE ---
: Beryl [phone]
[2021-07-12 20:25] LABS: UR Morphine/Opiate cutoff 300 Negative (Negative); Ur Creatinine Normal (Normal); Ur Specific Gravity Normal (Normal); Urine Amphetamines Negative (Negative); Urine Barbiturates Negative (Negative); Urine Benzodiazepines Negative (Negative); Urine Cocaine Negative (Negative); Urine MDMA Negative (Negative); Urine Methadone Negative (Negative); Urine Methamphetamines Negative (Negative); Urine Oxycodone Positive (Negative); Urine Phencyclidine Negative (Negative); Urine Tetrahydrocannabinol Negative (Negative); Urine Tricyclic Antidepressant Negative (Negative); Urine pH Normal (Normal)
[2021-07-12 20:27] LABS: Appearance Urine UA CLEAR; Bilirubin Urine UA NEGATIVE (NEGATIVE); Color Urine UA YELLOW; Glucose Urine UA NEGATIVE (Negative); Ketones Urine UA TRACE (NEGATIVE); Leukocyte Esterase Urine UA NEGATIVE (NEGATIVE); Nitrite Urine UA NEGATIVE (Negative); Occult Blood Urine UA TRACE-INTACT (Negative); Protein Urine UA NEGATIVE (Negative); Specific Gravity Urine UA <=1.005 (1.000-1.035); Urobilinogen Urine UA 0.2 E.U./dL (0.2)
[2021-07-12 20:30] LABS: Bacteria Urine None Seen; Culture Indicated Urine Cult Not Indicated; RBC Urine 5-10/HPF (0-5/HPF); WBC Urine 0-1/HPF (0-5/HPF)
[2021-07-12 21:39] LABS: Troponin I 0.014 ng/mL (0.01-0.034)
[2021-07-12 21:39] LABS: COVID19 - ADMIT (NP swab/PCR) Negative (Negative)
[2021-07-13] VITALS (10 sets, daily range): BP systolic 107–153; BP diastolic 66–84; PULSE 53–78; RESP 16–18; TEMP 36–37.1; O2SAT 94–100
[2021-07-13] MEDS: ACETAMINOPHEN 325 MG TABLET 650 MG PO ×2 (00:36→17:57)
[2021-07-13] MEDS: ATORVASTATIN 20 MG TABLET 10 MG PO ×2 (00:36→20:19)
[2021-07-13] MEDS: DEXTROSE 5%-0.9% NS 1,000 ML 80 ML IV ×2 (00:37→12:29)
[2021-07-13 05:36] LABS: Add Manual Diff / Slide Review NO; Basophils Absolute Auto 0 /uL (0-100); Basophils Percent Auto 0.3 % (0-2); Eosinophils Absolute Auto 0 /uL (0-450); Hematocrit 33.3 % (41-53); Lymphocytes Absolute Auto 1300 /uL (1100-4500); Lymphocytes Percent Auto 19.9 % (25-40); Mean Corpuscular HGB Conc 33.1 % (30-36); Mean Corpuscular Hemoglobin 28.6 PG (26-34); Mean Corpuscular Volume 86.5 fL (80-100); Monocytes Absolute Auto 1100 /uL (0-900); Monocytes Percent Auto 15.9 % (3-14); Neutrophils Absolute Auto 4300 /uL (1500-7000); Neutrophils Percent Auto 63.9 % (50-75); Platelet Count 269 X10^3/uL (150-400); Red Blood Cell Count 3.84 X10^6/uL (4.5-5.9); Red Cell Distribution Width 15.3 % (11.6-14.8); White Blood Cell Count 6.8 X10^3/uL (4.5-11.0)
[2021-07-13 05:49] LABS: BUN Creatinine Ratio 21.6 (6-22); Blood Urea Nitrogen 16 mg/dL (9-20); Calcium 8.9 mg/dL (8.4-10.2); Carbon Dioxide 28 mmol/L (22-32); Chloride 103 mmol/L (98-107); Estimated Glomerular Filt Rate > 60.0 mL/min (>60); Glucose 141 mg/dL (80-110); HEMOLYSIS < 15 (0-50); Sodium 135 mmol/L (137-145)
[2021-07-13] MEDS: atenoloL 50 MG TABLET 100 MG PO (08:28)
[2021-07-13] MEDS: CITALOPRAM 10 MG TABLET 40 MG PO (08:28)
[2021-07-13] MEDS: CHOLECALCIFEROL (VITAMIN D3) 1,000 UNIT TABLET 1000 UNIT PO (08:28)
[2021-07-13] MEDS: allopurinoL 100 MG TABLET PO (08:28)
[2021-07-13] MEDS: ASPIRIN 81 MG CHEW TAB PO (08:28)
[2021-07-13] MEDS: FINASTERIDE 5 MG TABLET PO (08:28)
--- NOTE | 2021-07-13 09:23 | PM.HP.1 ---
History of Present Illness History of Present Illness Date Patient Seen: 07/13/21 Time Patient Seen: 09:23 Chief complaint: GLF Narrative: 86-year-old male with a history of arthritis recurrent small-bowel obstructions coronary artery disease hypertension hyperlipidemia and anxiety recently had a diagnosis of shingles on his right lower extremity which is now resolved and has post herpetic neuralgia. In addition due to his osteoarthritis his spine and lower extremities patient has had decreasing limited mobility over the last few years. Patient resides at home with his who provides caregiving needs. She has noticed some increased difficulty in the last few months with the his transferring weakness and concerns about him getting him out of the house. After he had the outbreak of shingles. Patient's mobility decreased even more. In now he is complaining of a lot of pain. He has been placed on Neurontin which she has had on and off for his arthritis of his spine. And in the last few weeks he has had a prescription for oxycodone that he takes 1 or 2 tablets at night. In the last 24 hours. Patient was evaluated by me in his office with his complaining that he is increasingly weak. Did complaining of knee pain and post shingles pain on the right side. Patient's it had not had any resources at home for her. She was wondering what the next steps are to help with patient transferring bathing and her concerns about being able to take care of him. On the way to the office for appointment patient had a fall in the garage. After evaluation in the clinic. Patient was able to transfer home. But over the day patient became increasing week. His noted that she had a hard time getting him out of bed. For urination he had a couple of falls. They were able to get him back into bed. And ultimately fell again that evening. Patient had a neighbor come over they were and able to get him back into bed so the emergency number was called and he was brought to the emergency department. Not only was the increasing week but his noted that he was more confused he was a little bit out of it he was shaking and had tremors. She was unaware that he had any fever. He recently has not had any cough proper problems with bowel movements nausea or vomiting. Patient has not had any major skin rashes. No nasal congestion or discharge. Patient has ongoing issues with increased urination. Today on evaluation. He remembers seeing me in the office does not remember little bit later than day unsure what they did form in the emergency room knows he did at [facility] he does not know the day date or time. 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) Pelvic somatic dysfunction Piriformis syndrome of left side Polymyalgia rheumatica Sacral region somatic dysfunction Small bowel obstruction Somatic dysfunction of lower extremity 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) Trigeminal neuralgia Zoster Surgical History H/O prostate biopsy H/O total cystectomy History of angioplasty (2001) History of gastrointestinal surgery Hx of inguinal hernia surgery Status post cholecystectomy Family & Social History Family History Father Macular degeneration Sister Hypertension Social History: household members spouse Prior Living Arrangements House Safety & Behavioral: Feels Safe in Current Unwilling to Answer Environment Been Physically Hurt or Unwilling to Answer Threatened By a Person Suicidal Ideation Description None Suicide Plan Description No Plan Tobacco & Substance use: Smoking Status Never smoker alcohol intake current alcohol intake frequency a few times a week Substance Use Type does not use Meds Home Medications and Allergies Home Medications Medication Instructions Recorded Confirmed Type CA PANTOTHENATE/FOLIC ACID/VIT 1 liq PO QDAY #0 11/18/11 06/07/21 History (MULTIVITAMIN) VITAMIN D (Vitamin D3) 1,000 unit PO QDAY #0 11/18/11 06/07/21 History aspirin 81 mg chewable tablet 81 mg PO DAILY #0 06/03/12 06/07/21 History simvastatin 20 mg tablet 20 mg PO HS #90 tab 08/07/19 06/07/21 Rx allopurinol 100 mg tablet 100 mg PO DAILY #90 tab 11/25/19 06/07/21 Rx citalopram 40 mg tablet 40 mg PO DAILY #90 tab 02/23/20 06/07/21 Rx atenolol 50 mg tablet 100 mg PO DAILY #180 tab 07/05/20 06/07/21 Rx finasteride 5 mg tablet 5 mg PO DAILY #90 tab 02/01/21 06/07/21 Rx lactobacillus combination no.4 3 3,000 mmu cells PO DAILY 05/31/21 06/07/21 History billion cell capsule (Probiotic) oxycodone-acetaminophen 5 mg-325 1 tab PO Q6H PRN #15 tab 06/15/21 Rx mg tablet gabapentin 300 mg capsule See Rx Instructions PO BID PRN 06/20/21 Rx #150 cap oxycodone 5 mg tablet 5 mg PO BEDTIME #20 tab 07/11/21 Rx Allergies Allergy/AdvReac Type Severity Reaction Status Date / Time carbamazepine [CARBAMAZEPINE] Allergy Mild HIVES Verified 07/12/21 18:44 codeine [CODEINE] Allergy Mild CONSTIPATIO Verified 07/12/21 18:44 N tamsulosin [TAMSULOSIN] Allergy Mild REAL BAD Verified 07/12/21 18:44 COUGH morphine [MORPHINE] AdvReac Unknown severe Verified 07/12/21 18:44 nausea/vomiting Exam Vital Signs (past 8 hours): - 07/13/21 06:03 07/13/21 08:30 Temperature 98.2 F 96.8 F L Pulse Rate 67 53 L Respiratory Rate 16 16 Blood Pressure 136/73 130/84 Pulse Oximetry 97 97 Oxygen Delivery Method Room Air Oxygen Flow Rate 0 Narrative Exam Narrative: Gen.: Patient is alert poor historian complaining of knee pain. He knows he has had the hospital in [place] but on sure of why he is here. HEENT: Pupils equal round and reactive or mucosa is moist neck is supple he has got a head tremor. Cardio: S1-S2 regular rate and rhythm systolic murmur Respiratory: Decreased lung sounds at bases Abdomen: Soft nontender no rebound or guarding Extremities: Tenderness to his right knee. No edema warm dry perfused. Neurologic: No focal neurological deficits Objective Labs Result Diagrams: 07/13/21 05:17 07/13/21 05:17 Labs: Laboratory Results - last 24 hr 07/12/21 07/12/21 07/12/21 18:30 18:30 18:30 WBC 8.4 RBC 4.25 L Hgb 12.5 L Hct 36.7 L MCV 86.5 MCH 29.3 MCHC 33.9 RDW 15.3 H Plt Count 350 Neut % (Auto) 65.0 Lymph % (Auto) 24.9 L Cooper % (Auto) 9.3 Eos % (Auto) 0.2 L Baso % (Auto) 0.6 Neut # (Auto) 5500 Lymph # (Auto) 2100 Cooper # (Auto) 800 Eos # (Auto) 0 Baso # (Auto) 100 PT 12.8 H INR 1.2 APTT 32 Sodium 136 L Potassium 4.3 Chloride 102 Carbon Dioxide 28 BUN 17 Creatinine 0.80 Estimated GFR > 60.0 BUN/Creatinine Ratio 21.3 Glucose 120 H Lactate Calcium 9.6 Total Bilirubin 0.5 AST 46 ALT 43 Alkaline Phosphatase 131 H Ammonia Total Creatine Kinase 42 L CK-MB (CK-2) TNP CK-MB (CK-2) Rel Index TNP Troponin I < 0.012 Total Protein 7.9 Albumin 4.4 Globulin 3.5 Albumin/Globulin Ratio 1.3 Lipase 68 Procalcitonin 0.08 Urine Color Urine Appearance Urine pH Ur Specific [place] Urine Protein Urine Glucose (UA) Urine Ketones Urine Occult Blood Urine Nitrate Urine Bilirubin Urine Urobilinogen Ur Leukocyte Esterase Urine RBC Urine WBC Urine Bacteria Ur Culture Indicated? U Opiates 300ng/mL cut Ur Oxycodone Screen Urine Methadone Screen Ur Barbiturates Screen U Tricyclic Antidepress Ur Phencyclidine Scrn Ur Amphetamines Screen U Methamphetamines Scrn Ur MDMA Scrn (Ecstasy) U Benzodiazepines Scrn Urine Cocaine Screen U Marijuana (THC) Screen Ethyl Alcohol < 10 SARS-CoV-2 (PCR) 07/12/21 07/12/21 07/12/21 18:55 18:55 20:00 WBC RBC Hgb Hct MCV MCH MCHC RDW Plt Count Neut % (Auto) Lymph % (Auto) Cooper % (Auto) Eos % (Auto) Baso % (Auto) Neut # (Auto) Lymph # (Auto) Cooper # (Auto) Eos # (Auto) Baso # (Auto) PT INR APTT Sodium Potassium Chloride Carbon Dioxide BUN Creatinine Estimated GFR BUN/Creatinine Ratio Glucose Lactate 1.6 Calcium Total Bilirubin AST ALT Alkaline Phosphatase Ammonia < 9 L Total Creatine Kinase CK-MB (CK-2) CK-MB (CK-2) Rel Index Troponin I Total Protein Albumin Globulin Albumin/Globulin Ratio Lipase Procalcitonin Urine Color Urine Appearance Urine pH Ur Specific [place] Urine Protein Urine Glucose (UA) Urine Ketones Urine Occult Blood Urine Nitrate Urine Bilirubin Urine Urobilinogen Ur Leukocyte Esterase Urine RBC Urine WBC Urine Bacteria Ur Culture Indicated? U Opiates 300ng/mL cut Negative Ur Oxycodone Screen Positive H Urine Methadone Screen Negative Ur Barbiturates Screen Negative U Tricyclic Antidepress Negative Ur Phencyclidine Scrn Negative Ur Amphetamines Screen Negative U Methamphetamines Scrn Negative Ur MDMA Scrn (Ecstasy) Negative U Benzodiazepines Scrn Negative Urine Cocaine Screen Negative U Marijuana (THC) Screen Negative Ethyl Alcohol SARS-CoV-2 (PCR) 07/12/21 07/12/21 07/12/21 20:00 20:30 21:09 WBC RBC Hgb Hct MCV MCH MCHC RDW Plt Count Neut % (Auto) Lymph % (Auto) Cooper % (Auto) Eos % (Auto) Baso % (Auto) Neut # (Auto) Lymph # (Auto) Cooper # (Auto) Eos # (Auto) Baso # (Auto) PT INR APTT Sodium Potassium Chloride Carbon Dioxide BUN Creatinine Estimated GFR BUN/Creatinine Ratio Glucose Lactate Calcium Total Bilirubin AST ALT Alkaline Phosphatase Ammonia Total Creatine Kinase CK-MB (CK-2) CK-MB (CK-2) Rel Index Troponin I 0.014 Total Protein Albumin Globulin Albumin/Globulin Ratio Lipase Procalcitonin Urine Color Yellow Urine Appearance Clear Urine pH 7.0 Ur Specific [place] <=1.005 Urine Protein Negative Urine Glucose (UA) Negative Urine Ketones Trace H Urine Occult Blood Trace-intact Urine Nitrate Negative Urine Bilirubin Negative Urine Urobilinogen 0.2 Ur Leukocyte Esterase Negative Urine RBC 5-10/hpf H Urine WBC 0-1/hpf Urine Bacteria None seen Ur Culture Indicated? Cult not indicated U Opiates 300ng/mL cut Ur Oxycodone Screen Urine Methadone Screen Ur Barbiturates Screen U Tricyclic Antidepress Ur Phencyclidine Scrn Ur Amphetamines Screen U Methamphetamines Scrn Ur MDMA Scrn (Ecstasy) U Benzodiazepines Scrn Urine Cocaine Screen U Marijuana (THC) Screen Ethyl Alcohol SARS-CoV-2 (PCR) Negative 07/13/21 07/13/21 05:17 05:17 WBC 6.8 RBC 3.84 L Hgb 11.0 L Hct 33.3 L MCV 86.5 MCH 28.6 MCHC 33.1 RDW 15.3 H Plt Count 269 Neut % (Auto) 63.9 Lymph % (Auto) 19.9 L Cooper % (Auto) 15.9 H Eos % (Auto) 0.0 L Baso % (Auto) 0.3 Neut # (Auto) 4300 Lymph # (Auto) 1300 Cooper # (Auto) 1100 H Eos # (Auto) 0 Baso # (Auto) 0 PT INR APTT Sodium 135 L Potassium 4.0 Chloride 103 Carbon Dioxide 28 BUN 16 Creatinine 0.74 Estimated GFR > 60.0 BUN/Creatinine Ratio 21.6 Glucose 141 H Lactate Calcium 8.9 Total Bilirubin AST ALT Alkaline Phosphatase Ammonia Total Creatine Kinase CK-MB (CK-2) CK-MB (CK-2) Rel Index Troponin I Total Protein Albumin Globulin Albumin/Globulin Ratio Lipase Procalcitonin Urine Color Urine Appearance Urine pH Ur Specific [place] Urine Protein Urine Glucose (UA) Urine Ketones Urine Occult Blood Urine Nitrate Urine Bilirubin Urine Urobilinogen Ur Leukocyte Esterase Urine RBC Urine WBC Urine Bacteria Ur Culture Indicated? U Opiates 300ng/mL cut Ur Oxycodone Screen Urine Methadone Screen Ur Barbiturates Screen U Tricyclic Antidepress Ur Phencyclidine Scrn Ur Amphetamines Screen U Methamphetamines Scrn Ur MDMA Scrn (Ecstasy) U Benzodiazepines Scrn Urine Cocaine Screen U Marijuana (THC) Screen Ethyl Alcohol SARS-CoV-2 (PCR) Assessment & Plan Assessment and plan (1) Acute metabolic encephalopathy: Status: Acute Plan: Metabolic encephalopathy patient admitted to the hospital with confusion weakness difficulty with ambulating. Fairly acute. Patient has had a slow gradual decline in his health. Unsure at 80 all a G of cause of underlying mental status changes. CBC and shows no elevation of white blood cell count procalcitonin is normal urinalysis normal possible infiltrate on CT scan but clinical picture and laboratory findings do not confirm this. Possible medication side effect. Patient has had a prescription for oxycodone because of recent shingles he is not on this chronically. His says that he has been taking 1 or 2 tablets a day. Patient has a CT scan of his head and neck were reviewed. No acute cerebrovascular insult or injury as potential cause. I do not think he needs further workup with MRI imaging at this point as I do not think this was a cerebrovascular event. He required assistance with transfers today. Will continue to monitor his mental status re orientated. Continue to monitor for infectious etiologies. And hold potential narcotic medication as a cause. Continue to monitor his neurological status and monitor for acute cerebral events. Patient has no focal neurological deficits. Shingles with post herpetic neuralgia a patient with significant right-sided leg pain. He says he is doing well now. He will continue on his previous prescribe Neurontin and continue with Tylenol as needed for pain. He will work with physical therapy and occupational therapy. Coronary artery disease patient was stable chronic coronary artery disease. Home medications will be reinstituted. Hypertension. Patient's blood pressure medication will be continued Hyperlipidemia patient will be continued on his statin. Disposition plan. Patient is admitted as observation. Had a long discussion with his about care and discharge plans. She is unsure whether she can take care of him at home which has been increasingly difficult for her over the last few months and now currently worse. Will discuss with discharge planning about discharge plan options. Time Spent With Patient Critical Care time: I spent a total of [] minutes of critical care time on this patient's care today; this time is exclusive of procedural time.
--- NOTE | 2021-07-13 10:00 | OT.IP.EVAL ---
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 Gait instability Gout Greater trochanteric bursitis of left hip H/O prostate biopsy H/O total cystectomy Hemorrhoids Herniated nucleus pulposus, L5-S1, left History of gastrointestinal surgery History of small bowel obstruction Hx of inguinal hernia surgery Hyperlipidemia Hypertension Iliotibial band syndrome, left leg Myocardial infarction 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) Pelvic somatic dysfunction Piriformis syndrome of left side Polymyalgia rheumatica Sacral region somatic dysfunction Small bowel obstruction Somatic dysfunction of lower extremity 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) Trigeminal neuralgia [facility] Surgical History (Last Reviewed 06/15/21 @ 11:00 by Jennifer Anton MD) H/O prostate biopsy H/O total cystectomy History of angioplasty (2001) History of gastrointestinal surgery Hx of inguinal hernia surgery Status post cholecystectomy Occupational Therapy Inpatient Evaluation/Re-Eval M1 PT/OT-IP Prior Functional Status Start: 07/13/21 11:41 Freq: NEEDED Status: Active Protocol: Document 07/13/21 11:41 [facility] (Rec: 07/13/21 12:13 [facility] [id number]) Medical Review Prior Functional Status Communication Independent Mobility and Gait Pt states use of FWW inside and 4ww outside. Pt states at times that his right knee just gives out. Activities of Daily Living and IADL's Pt states prior completely independent with all Adl needs , Pt's is around when he has to shower. Pt's does the bills. Pt has not been driving for a while due to his RLE weakness. Prior Functional Level (Other details) Pt has live in housekeeper nanny and gardeners that come to the house. Social History Household Members spouse Living Arrangements House Number of Floors (Floors) Two Floors Number of Stairs To Enter/Railing? Pt states there are 4 steps with bilateral rails from the garage to get into his house. Home Environment High Toilet,Walk in Shower Home Equipment Front Wheel Walker,Four Wheel Walker,Bed Rails,Grab Bars In Shower Additional Social History Comment Pt states to have a metal bar installed in the shower to replace the suction cup grab bars he is currently using the in the shower. In addition pt looking to get hand held shower spray and shower chair to increase his safety for showering needs. M2 OT-IP Current Condition Start: 07/13/21 11:41 Freq: Status: Active Protocol: Document 07/13/21 11:41 [facility] (Rec: 07/13/21 12:13 [facility] [id number]) Occupational Therapy Current Condition Current Condition Evaluation Date 07/13/21 Treatment Diagnosis PNA, acute metabolic encephalopathy, GLF Diagnosis Onset Date 07/12/21 M3 OT- IP Subjective and Pain Start: 07/13/21 11:41 Freq: Status: Active Protocol: Document 07/13/21 11:41 [facility] (Rec: 07/13/21 12:13 [facility] [id number]) OT- Subjective Occupational Therapy Visit Type Type Initial Evaluation Visit Start Time 08:35 Visit Stop Time 10:00 Total Visit Minutes 85 Occupational Therapy Visit Comments Patient Comments Pt agreed to get up and to the recliner for breakfast. Patient/Caregiver Goals To go home. OT Pain Assessment Pain When Pain Assessed At Rest Pain Present Pain Present Pain Reported M4 OT- IP ADL's Start: 07/13/21 11:41 Freq: Status: Active Protocol: Document 07/13/21 11:41 [facility] (Rec: 07/13/21 12:13 [facility] [id number]) OT [id number] Comments OT Self-Feeding Comments Pt just needing set-up assist. Due to tremors in pt's hands , suggested use of weighted utensils and pt not wanting to try at this time. OT ADL-Grooming General Evaluation Grooming Ability Standby Assistance Comments OT Grooming Comments while seated OT ADL-Oral Care Comments Oral Care Comments Pt did not perform. OT ADL-Dressing General Eval Lower Body Dressing Ability Moderate Assistance,Maximum Assistance Areas Needing Assistance Underpants/Brief,Socks Comments OT Dressing Comments Pt needing assist to help nava socks over his feet and to get brief over his feet and assist for balance while pt able to pull up the brief over his hips. OT ADL-Toileting General Evaluation Toileting Ability Standby Assistance Comments OT Toileting Comments Set-up assist and cues to hygiene completeness. Pt insists on wiping from the front after having a bowel movement and uses toilet paper and had to wipe 20 times. Pt suggested would be easier to wipe from the back and also have use of wet wipes. In addition pending finances a bidet could also make hygiene needs much easier. OT ADL-Bathing Comments OT Bathing Comments Pt too tired to do at this time. M5 OT- IP IADL's Start: 07/13/21 11:41 Freq: Status: Active Protocol: Document 07/13/21 11:41 [facility] (Rec: 07/13/21 12:13 [facility] [id number]) OT-Instrumental Activities of Daily Living Home Safety Awareness Awareness of Need for Assistance at Home Good Awareness Ability to Problem Solve Emergency Able to Problem Solve Situations Medication Management Medication Management Comments Pt states he lines the medication bottles up in a certain way and home and takes his medications on his own. May be good for his to assist as pt's at times does not see well especially with his right eye. Money Management Money Management Caregiver Provides Assistance Meal Preparation Meal Preparation Caregiver Provides Assist Eclectic Doctor Eclectic Doctor Caregiver Provides Assist Driving Driving Comments Pt states has not been driving for awhile. M6 OT- IP Functional Cognition Start: 07/13/21 11:41 Freq: Status: Active Protocol: Document 07/13/21 11:41 [facility] (Rec: 07/13/21 12:13 [facility] [id number]) Cognitive Factors Limiting Selfcare Function Cognitive Ability Level of Alertness Alert Patient Orientation Name,Month,Year,Place, Situation Attention Span Ability Capable of Focused Attention, Capable of Sustained Attention Ability to Follow Commands Able to Follow One Step Commands Safety Awareness Underestimates Need for Assistance Cognitive Tests SLUMS Pt scored 17/26 as unable to complete drawing of the clock as pt's hands tremor. Pt's score still indicates borderline dementia versus mild cognitive disorder. Pt did not know the day of the week, not able to subtract 100 -23 accurately, able to recall 4/5 objects after time passed , able to name 10 animals in one minute , and able to answer 2/4 questions right after paragraph read. Pt is also a little hard of hearing which may also affect his his score. Pt needing safety cues to push up from the bed to come to stand. Cognitive Comments Cognitive Assessment Comments Pt able to follow directions for ADl needs. Pt insistent to do things a certain way especially for his toilet hygiene needs. OT- Vision and Hearing OT- Hearing Assessment OT- Hearing Assessment WFL OT- Vision Assessment Visual Acuity Glasses For Reading Vision Assessment Comments Right eye per pt states not able to see centrally and has holes in his right eye vision. M7 OT- IP Mobility and Balance Start: 07/13/21 11:41 Freq: Status: Active Protocol: Document 07/13/21 11:41 [facility] (Rec: 07/13/21 12:13 [facility] [id number]) OT- Bed Mobility Assessment Rolling Type of Rolling Roll to Left Level of Assistance Standby Assistance Supine to Sit Supine to Sit Assist Standby Assistance Scooting Scooting to Edge of Bed Standby Assistance OT-Transfer Assessment Sit to and From Stand Sit to and from Stand Contact Guard Assistance, Minimal Assistance Transfers Transfer Ability Minimal Assistance Technique Transfer Destination Bed,Chair,Toilet Transfer Technique Stand Step Pivot Devices Transfer Assistive Devices Gait Belt,Front Wheeled Walker Comments Mobility Comments Pt needing BLAZE for balance with FWW to get into and out of the bathroom. OT- Balance Assessment Sitting Balance and Reactions Static Sitting Balance Ability Good Dynamic Sitting Balance Ability Fair Standing Balance and Reactions Static Standing Balance Ability Poor M8 OT- IP Objective Assessments Start: 07/13/21 11:41 Freq: Status: Active Protocol: Document 07/13/21 11:41 [facility] (Rec: 07/13/21 12:13 [facility] [id number]) OT Gross Range of Motion Upper Extremity Range of Motion Assessment Within Functional Limits OT Strength Upper Extremity Strength Assessment Within Functional Limits Hand Table Keeper Strength Hand Dominance Right OT- Coordination Assessment Upper Extremity Finger to Nose Test Bilateral UE Impaired Comments Coordination Comments Pt has tremors in hands right greater than left. At times needing assist for FMS needs, however pt able to use his left hand better to grasp pills when nursing issuing him his medication. OT-Muscle Tone Assessment Muscle Tone WNL Yes OT Sensation Assessment Comments Summary Comments Intact Edema Edema Absent M9 OT- IP Assessment and Plan Start: 07/13/21 11:41 Freq: Status: Active Protocol: Document 07/13/21 11:41 [facility] (Rec: 07/13/21 12:13 [facility] [id number]) OT Summary Assessment and Plan Potential Rehabilitation Potential Good Analytic Complexity at Evaluation Moderate Summary OT Impairments Pain,Balance,Coordination, Functional Cognition, Functional Mobility,Self- Feeding,Grooming,Dressing, Toileting,Bathing,Toilet Transfers,Shower Transfers, Activity Tolerance Progress Towards Goals Slow Progress due to Pain,Slow Progress due to Medical Issues,Slow Progress due to Activity Tolerance,Slow Progress due to Cognition Assessment Summary Pt MOD complexity and main barriers are steps, now needing one person assist for toileting and dressing needs, unsteady on his feet , and decreased functional cognition and score 17/26 on the SLUMS as not able to do the draw the clock due to his right hand tremors. Pt's score so far and even if able to get full points for the clock still implies borderline between mild neurocognitive disorders and dementia. Therefore pending if pt's able to provide enough assist for the pt suggest possible short skilled rehab versus home with assist and home health. Goals Self-Feeding Goal Standby Assistance Grooming Goal Independent Dressing Goal Independent Toileting Goal Independent Bathing Goal Standby Assistance Toilet Transfer Goal Independent Shower Transfer Goal Independent Patient/Caregiver Education Goal Caregiver Independent Assisting Patient Days to Meet Goals 7 Frequency of Treatment Frequency Of Treatment Once a Day Treatment Plan OT Treatment Plan ADL Training,Functional Cognition Training,Functional Mobility,Patient/Family Education,Discharge Planning Other Treatment Recommendations and Next caregiver training, shower Treatment Focus Discharge Recommendations OT Discharge Recommendations Home with Assistance,Home Health,SNF Rehab,Home vs SNF Home Equipment Needs shower chair, grab bar, hand held shower spray Transportation Needs at Discharge Wheelchair/Cabulance
--- NOTE | 2021-07-13 10:10 | CM.DPNOTE ---
[facility] on 07/13/21. Also called and left a vm for March at to review this patient's information. Erika Wynn CM Asst.
--- NOTE | 2021-07-13 11:05 | PT.IIE ---
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 Gait instability Gout Greater trochanteric bursitis of left hip Hemorrhoids Herniated nucleus pulposus, L5-S1, left History of small bowel obstruction Hyperlipidemia Hypertension Iliotibial band syndrome, left leg Myocardial infarction 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) Pelvic somatic dysfunction Piriformis syndrome of left side Polymyalgia rheumatica Sacral region somatic dysfunction Small bowel obstruction Somatic dysfunction of lower extremity 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 Pt states at times that his righ knee just gives out at times. Activities of Daily Living and IADL's Pt states prior completely independent with all Adl needs , Pt's is around when he has to shower. Pt's does the bills. Pt has not been driving for a while due to his RLE weakness. Prior Functional Level (Other details) Pt has roundhouse supervisor and gardeners that assist him. Social History Household Members spouse Living Arrangements House Number of Floors (Floors) Two Floors Number of Stairs To Enter/Railing? Pt states there are 4 steps with bilateral rails from the garage to get into his house. Home Environment High Toilet,Walk in Shower Home Equipment Front Wheel Walker,Four Wheel Walker,Bed Rails,Grab Bars In Shower Additional Social History Comment Pt states to have a metal bar installed in the shower to replace the suction cup grab bars he is currently using the in the shower. In addition pt looking to get hand held shower spray and shower chair to increase his safety for showering needs. M2 PT-IP Current Condition Start: 07/13/21 12:22 Freq: NEEDED Status: Active Protocol: Document 07/13/21 11:05 [facility] (Rec: 07/13/21 12:35 [facility] [id number]) Physical Therapy Current Condition Current Condition Evaluation Date 07/13/21 Treatment Diagnosis metabolic encephalopathy; difficulty in walking Onset Date 07/12/21 Precautions Other Precautions falls M3 PT-IP Subjective Start: 07/13/21 12:22 Freq: NEEDED Status: Active Protocol: Document 07/13/21 11:05 [facility] (Rec: 07/13/21 12:35 [facility] [id number]) Subjective Physical Therapy Visit Type Type Initial Evaluation Visit Start Time 11:05 Visit Stop Time 11:51 Total Visit Minutes 46 Number of VEGETABLES COOK Visits 0 Physical Therapy Visit Comments Patient Comments agreeable to do PT M4 PT-IP Mobility and Gait Start: 07/13/21 12:22 Freq: NEEDED Status: Active Protocol: Document 07/13/21 11:05 [facility] (Rec: 07/13/21 12:35 [facility] [id number]) PT-Bed Mobility Assessment Supine to Sit Supine to Sit Standby Assistance Sit to Supine Sit to Supine Standby Assistance PT-Transfer Assessment Sit to and From Stand Sit to and from Stand Minimal Assistance,Moderate Assistance,1 Person Assistance ,Use of Upper Extremities Equipment Transfer Assistive Device Gait Belt,Front Wheeled Walker Orthotic/Prosthetic Devices or Brace: No Transfers Transfer Destination Bed Transfer Technique ambulated Transfer Ability Level of Assist Moderate Assistance,1 Person Assistance,Use of Upper Extremities Comments Mobility Comments pt sitting on chair. BP in sittin/55. agreed to do PT. pt completed sit to stand min to mod A and cues. BP in standin/58. ambulated ~ 10 ft using FWW mod A and cues. required verbal and tactile cues for R quads activation. pt ambulated towards the bed using FWW mod A. completed sit <>supine SBA . completed sit to stand from bed mod A and ambulated to the chair using FWW ~ 12 ft mod A and cues. positioned on chair. call light and table placed within reach. Gait Assessment Gait Gait Assistance Required: Moderate Assistance,1 Person Assist Distance (Feet) 12 Able to Maintain Weight Bearing Status Yes During Gait Assistive Devices Assistive Device Gait Belt,Front Wheeled Walker Orthotic/Prosthetic Devices or Brace: No Gait Deviations General Gait Pattern Antalgic,Decreased Stride Length,Decreased Feet Clearance,Step-to Gait Factors Limiting Gait Function Factors Limiting Gait Function Decreased Activity Tolerance, Decreased Strength,Limited Range of Motion,Poor Balance, Poor Safety Awareness Comments Gait Comments pls refer to mobility section for details PT-Balance Assessment Sitting Balance and Reactions Static Sitting Balance Ability Good Dynamic Sitting Balance Ability Good Standing Balance and Reactions Static Standing Balance Ability Fair Dynamic Standing Balance Ability Fair Device Used FWW M5 PT-IP Objective Assessments Start: 07/13/21 12:22 Freq: NEEDED Status: Active Protocol: Document 07/13/21 11:05 [facility] (Rec: 07/13/21 12:35 AB [id number]) Orientation Orientation/Cognition Level of Alertness Alert Orientation Name,Place,Situation Safety Awareness Decreased Safety Awareness Gross Range of Motion Lower Extremity ROM Assessment Within Functional Limits Strength Lower Extremity Strength Assessment Right Impaired Hip 3+/5 Knee 3+/5 Coordination Assessment Gross Coordination Gross Coordination WNL Muscle Tone Muscle Tone WNL Yes M6 PT-IP Treatment Start: 07/13/21 12:22 Freq: NEEDED Status: Active Protocol: Document 07/13/21 11:05 [facility] (Rec: 07/13/21 12:35 [facility] [id number]) Physical Therapy Treatment Education Education Provided Safety M7 PT-IP Assessment and Plan Start: 07/13/21 12:22 Freq: NEEDED Status: Active Protocol: Document 07/13/21 11:05 [facility] (Rec: 07/13/21 12:35 AB [id number]) PT Summary Assessment and Plan Potential Rehabilitation Potential Fair Status of Condition at Evaluation Evolving Summary Impairments Pain,ROM,Strength,Balance, Coordination,Sensation,Tone, Cognition,Bed Mobility, Transfers,Gait,Activity Tolerance Assessment Summary pt requiring mod A and cues for transfers and ambulation using FWW. spouse stated that she cannot provide 24/7 assist to pt and wants pt to go to SNF. Pt does not want to go to SNF. informed pt that he needs 24/7 assist at this time if he goes home. pt with h/o frequent falls at home. pt will need SNF rehab at this time. will continue to assess progress. Goals Bed Mobility Goal Standby Assistance Transfer Goal Standby Assistance,Front Wheeled Walker Gait Goal Standby Assistance,Front Wheel Walker Gait Distance 150 Other Goals up/down 4 steps B rails SBA Days to Meet Goals 10 Frequency of Treatment Frequency Of Treatment Once a Day Treatment Plan Physical Therapy Treatment Plan Bed Mobility Training,Transfer Training,Gait Training, Therapeutic Exercise,Balance Retraining,Post Op Education, Discharge Planning,Hot or Cold Pack,Neuromuscular Re-ed, Coordination Retraining,Manual Therapy Precautions Other Precautions falls Recommendations To Nursing Amount of Assist Needed 1 Person Assist Discharge Recommendations PT Discharge Recommendations SNF Rehab Transportation Needs at Discharge Wheelchair/Cabulance
--- NOTE | 2021-07-13 11:21 | CM.DANOTE ---
Addendum entered by Estefania Matias, MAC 07/13/21 14:11: ADD: [facility] declines due to [facility] not the pt himself and bed availability. [facility] still reviewing. No answer from [facility] Ram[facility] yet. Return call from [facility] who confirms that they can accept pt and will begin [facility] auth but determined that technically they are not contracted with pt's specific plan but per [facility] info looks like [facility] shows no difference with out of network facility vs in network facility but spouse could call to confirm if wanted. Also, [facility] does not typically auth for very long at [facility]. SW called spouse as she had gone home and updated on above and she is very appreciative and grateful that pt has been accepted at [facility] and aware that likely copay or out pocket costs potentially and that still need to get [facility] auth confirmation. Spouse also now aware that [facility] might not auth pt for very long and therefore still an urgent need to begin calling [facility] CG agencies. BF Original Note: Patient is an 86 yo male who was admitted on 07/12/21 for GLF. Pt has REG MCR ADV for insurance and his PCP is Dr. Samson Perez. EMR was reviewed. Per MD, pt with increased GLFs and AMS and likely encephalopathy due to med change and not currently a good historian. OBS Status. MD spoke to spouse and preference is SNF at d/c prior to safe return home and likely no medical reason to change pt to Inpt Status. If safe for home after stabilizing, signed F2F for HH. Per RN, pt seems to wax and wane in his ability to be oriented, still some confusion at times. PT/OT ordered and pending. KIRAN met bedside with pt and spouse and explained role and they confirm that they still live at home in [place] and spouse is pt's primary CG. Pt has a hx of using HH but no SNF hx. And no other supportive services in place like [employer] or additional CG but spouse is very agreeable and has been considering getting PP CG agency set up for increased help at home. SW gave spouse the Senior Resource Guidebook and earmarked PP CG agencies page and discussed spouse to call in the next day or two to start the process to set up as it can take a couple weeks to finalize sometimes and spouse very agreeable and will call soon to start the process. SW provided the SNF/HH Choice list and spouse confirms that she feels SNF likely needed at d/c prior to safe return home. SW discussed need for [facility] and [facility] contracted SNF and spouse acknowledges understanding. Preference is [facility] as spouse does not drive out of town but has family members who can drive her to visit pt if he cannot stay in town at [facility]. Spouse and pt agreeable with referrals made to [facility], [facility], [facility], [facility]. Spouse also has no preference for HH and SW made referral to [facility] based on vendor calendar and spoke to Enma updating her that pt is SNF vs HH pending progress and if insurance approves SNF or not. [facility] is contracted with [facility] and SW efaxed initial referral to review. SW made copy of pt's COVID vaccination card and CC Erika to scan into pt's EMR. PASRR completed in anticipation of SNF. Plan: SW to follow closely for SNF review to determine accepting facility to begin [facility] auth today towards likely d/c tomorrow or next day once auth received and back up plan of home with spouse and [facility] with new PP CG to be set up. MAC Haney Discharge Planning/Care Management CM Discharge Assessment Start: 07/13/21 11:18 Freq: Status: Active Protocol: Document 07/13/21 11:19 BF (Rec: 07/13/21 11:21 [id number]) Discharge Planning Assessment Assigned Heating And Ventilating Tender MAC Mac DPOA/Assigned Designee Name spouse Haily Contact Information [phone] Advance Directives? Yes Advance Directives on File No History Provided By Patient,Family Member, Significant Other,Medical Record Has Patient been admitted in last 30 No days? Prior Living Arrangements House Household Members spouse Type of transporation used prior to Relies on Others admit Independent with ADL's No: spouse assists Is patient alert and oriented? Yes: somewhat Needs Assistance With Bathing,Meal Prep,Managing Medications,Home Chores / Shopping Caregiver for Another No Patient/Family Preference Residential Facility,Home with Home Health Comment SNF vs HH pending progress and if [facility] auth approval for SNF Barriers to Discharge No Discharge Plan Residential Facility Transportation Arrangement Spouse bedside and can transport home if safe vs SNF facility van Referrals Initiated Residential,Home Health If patient plan is home with home health Yes : Has signed face to face form been completed? If patient plan is SNF: Has PASSR been Yes completed? Comment SNF vs HH pending progress Medicare Choice List Provided Yes SNF/HH Preference [facility] Has Agency SNF been contacted Yes Whiteboard Updated in Patient Room with Yes name and ext. # of Heating And Ventilating Tender Review Status In Process Please Provide Date Initial DC 07/13/21 Assessment Was Performed Next Review Type Continued Stay Review
[2021-07-14] VITALS (8 sets, daily range): BP systolic 147–169; BP diastolic 72–88; PULSE 61–80; RESP 16–18; TEMP 35.8–36.3; O2SAT 94–98
[2021-07-14] MEDS: ACETAMINOPHEN 325 MG TABLET 650 MG PO ×3 (00:05→16:42)
[2021-07-14 00:51] LABS: Acinetobacter baumannii Not Detected (Not Detect); Candida albicans Not Detected (Not Detect); Candida glabrata Not Detected (Not Detect); Candida krusei Not Detected (Not Detect); Candida parapsilosis Not Detected (Not Detect); Candida tropicalis Not Detected (Not Detect); E. coli Not Detected (Not Detect); Enterobacter cloacae complex Not Detected (Not Detect); Enterobacteriaceae species Not Detected (Not Detect); Enterococcus species Not Detected (Not Detect); Haemophilus influenzae Not Detected (Not Detect); Listeria monocytogenes Not Detected (Not Detect); Neisseria meningitidis Not Detected (Not Detect); Proteus species Not Detected (Not Detect); Pseudomonas aeruginosa Not Detected (Not Detect); Serratia marcescens Not Detected (Not Detect); Staphylococcus species Not Detected (Not Detect); Streptococcus agalactiae (Gr B Not Detected (Not Detect); Streptococcus pneumonia Not Detected (Not Detect); Streptococcus pyogenes (Gr A) Not Detected (Not Detect); Streptococcus species Not Detected (Not Detect)
[2021-07-14] MEDS: GABAPENTIN 600 MG TABLET PO (02:00)
[2021-07-14] MEDS: DEXTROSE 5%-0.9% NS 1,000 ML 70 ML IV (02:15)
[2021-07-14] MEDS: ASPIRIN 81 MG CHEW TAB PO (08:52)
[2021-07-14] MEDS: FINASTERIDE 5 MG TABLET PO (08:55)
[2021-07-14] MEDS: allopurinoL 100 MG TABLET PO (08:55)
[2021-07-14] MEDS: atenoloL 50 MG TABLET 100 MG PO (08:55)
[2021-07-14] MEDS: GABAPENTIN 300 MG CAPSULE PO ×2 (08:57→20:29)
[2021-07-14] MEDS: CITALOPRAM 10 MG TABLET 40 MG PO (08:57)
[2021-07-14] MEDS: CHOLECALCIFEROL (VITAMIN D3) 1,000 UNIT TABLET 1000 UNIT PO (08:57)
--- NOTE | 2021-07-14 10:06 | OT.IP.TRT ---
Current Diagnoses Metabolic encephalopathy (07/12/21) Occupational Therapy Treatment Note M2 OT-IP Current Condition Start: 07/13/21 11:41 Freq: Status: Active Protocol: Document 07/13/21 11:41 [facility] (Rec: 07/13/21 12:13 [facility] [id number]) Occupational Therapy Current Condition Current Condition Evaluation Date 07/13/21 Treatment Diagnosis PNA, acute metabolic encephalopathy, GLF Diagnosis Onset Date 07/12/21 M3 OT- IP Subjective and Pain Start: 07/13/21 11:41 Freq: Status: Active Protocol: Document 07/14/21 10:25 [facility] (Rec: 07/14/21 10:35 [facility] [id number]) OT- Subjective Occupational Therapy Visit Type Type Treatment Note Visit Start Time 09:25 Visit Stop Time 10:06 Total Visit Minutes 41 Occupational Therapy Visit Comments Patient Comments Pt's in the room during OT treatment. Patient/Caregiver Goals To go to skilled rehab. OT Pain Assessment Pain When Pain Assessed At Rest Pain Present Pain Present Pain Reported M4 OT- IP ADL's Start: 07/13/21 11:41 Freq: Status: Active Protocol: Document 07/14/21 10:25 [facility] (Rec: 07/14/21 10:35 [facility] [id number]) OT ADL-Grooming General Evaluation Grooming Ability Standby Assistance Areas Needing Assistance Retrieving/Set-up of Grooming Items Comments OT Grooming Comments Able to stand with FWW and at times use of hand on the sink for balance as pt just mainly putting weight on his LLE. Suggested at home to have chair/higher stool so pt able to sit during needs. OT ADL-Oral Care General Eval Oral Care Ability Independent OT ADL-Dressing General Eval Lower Body Dressing Ability Maximum Assistance Areas Needing Assistance Socks OT ADL-Toileting Comments OT Toileting Comments Pt not having to go. OT ADL-Bathing Comments OT Bathing Comments Pt did not want to shower at this time. M5 OT- IP IADL's Start: 07/13/21 11:41 Freq: Status: Active Protocol: Document 07/13/21 11:41 [facility] (Rec: 07/13/21 12:13 [facility] [id number]) OT-Instrumental Activities of Daily Living Home Safety Awareness Awareness of Need for Assistance at Home Good Awareness Ability to Problem Solve Emergency Able to Problem Solve Situations Medication Management Medication Management Comments Pt states he lines the medication bottles up in a certain way and home and takes his medications on his own. May be good for his to assist as pt's at times does not see well especially with his right eye. Pt's states will provide assist at home. Money Management Money Management Caregiver Provides Assistance Meal Preparation Meal Preparation Caregiver Provides Assist Assistant Director Of Nursing Assistant Director Of Nursing Caregiver Provides Assist Driving Driving Comments Pt states has not been driving for awhile. M6 OT- IP Functional Cognition Start: 07/13/21 11:41 Freq: Status: Active Protocol: Document 07/14/21 10:25 [facility] (Rec: 07/14/21 10:35 [facility] [id number]) Cognitive Factors Limiting Selfcare Function Cognitive Ability Level of Alertness Alert Patient Orientation Name,Month,Year,Place, Situation Attention Span Ability Capable of Focused Attention, Capable of Sustained Attention Ability to Follow Commands Able to Follow One Step Commands Memory Description Short Term Impaired Safety Awareness Underestimates Need for Assistance Cognitive Comments Cognitive Assessment Comments Pt states he still feels that he can drive when taking to his about his SLUMs score . Pt's aware and agrees that pt should not be driving especially due to his RLE weakness and macular degeneration. OT- Vision and Hearing OT- Vision Assessment Vision Assessment Comments Pt's states pt has macular degeneration. M7 OT- IP Mobility and Balance Start: 07/13/21 11:41 Freq: Status: Active Protocol: Document 07/14/21 10:25 [facility] (Rec: 07/14/21 10:35 [facility] [id number]) OT- Bed Mobility Assessment Rolling Type of Rolling Roll to Left Level of Assistance Standby Assistance Supine to Sit Supine to Sit Assist Standby Assistance,Bedrails Scooting Scooting to Edge of Bed Standby Assistance OT-Transfer Assessment Sit to and From Stand Sit to and from Stand Contact Guard Assistance, Minimal Assistance Transfers Transfer Ability Contact Guard Assistance Technique Transfer Destination Bed,Chair Transfer Technique Stand Step Pivot Devices Transfer Assistive Devices Gait Belt,Front Wheeled Walker Comments Mobility Comments CGA to BLAZE for mobility needs with FWW. Pt heavily relies on LLE when walking around. Suggested pt may benefit form a WC at home, however per would not fit in the house. Also recommended to the pt to follow up with his doctor regarding his request to get/ try a knee brace. OT- Gait Assessment Comments Gait Ability Comments CGA to BLAZE with FWW. OT- Balance Assessment Sitting Balance and Reactions Static Sitting Balance Ability Normal Dynamic Sitting Balance Ability Good Standing Balance and Reactions Static Standing Balance Ability Fair Dynamic Standing Balance Ability Poor M9 OT- IP Assessment and Plan Start: 07/13/21 11:41 Freq: Status: Active Protocol: Document 07/14/21 10:25 [facility] (Rec: 07/14/21 10:35 [facility] [id number]) OT Summary Assessment and Plan Potential Rehabilitation Potential Good Analytic Complexity at Evaluation Moderate Summary OT Impairments Pain,Balance,Coordination, Functional Cognition, Functional Mobility,Self- Feeding,Grooming,Dressing, Toileting,Bathing,Toilet Transfers,Shower Transfers, Activity Tolerance Progress Towards Goals Progressing Toward Goals,Slow Progress due to Pain,Slow Progress due to Medical Issues Assessment Summary Pt's wanting pt to go to skilled rehab due to feel unable to provide enough assist for pt especially as pt has had recent falls. Pt heavily favors his LLE when up on his feet with FWW. Pt would benefit from skilled rehab to help improve his safety with mobility and ADl needs. Goals Self-Feeding Goal Standby Assistance Grooming Goal Independent Dressing Goal Independent Bathing Goal Standby Assistance Toilet Transfer Goal Independent Shower Transfer Goal Independent Patient/Caregiver Education Goal Caregiver Independent Assisting Patient Days to Meet Goals 6 Frequency of Treatment Frequency Of Treatment Once a Day Treatment Plan OT Treatment Plan ADL Training,Functional Cognition Training,Functional Mobility,Patient/Family Education,Discharge Planning Discharge Recommendations OT Discharge Recommendations SNF Rehab Home Equipment Needs shower chair, grab bar, hand held shower spray Transportation Needs at Discharge Wheelchair/Cabulance
--- NOTE | 2021-07-14 10:08 | PT.IPTN ---
Current Diagnoses Metabolic encephalopathy (07/12/21) Physical Therapy Treatment Note M2 PT-IP Current Condition Start: 07/13/21 12:22 Freq: NEEDED Status: Active Protocol: Document 07/13/21 11:05 AB (Rec: 07/13/21 12:35 AB [id number]) Physical Therapy Current Condition Current Condition Evaluation Date 07/13/21 Treatment Diagnosis metabolic encephalopathy; difficulty in walking Onset Date 07/12/21 Precautions Other Precautions falls M3 PT-IP Subjective Start: 07/13/21 12:22 Freq: NEEDED Status: Active Protocol: Document 07/14/21 10:08 AB (Rec: 07/14/21 11:48 AB [id number]) Subjective Physical Therapy Visit Type Type Treatment Note Visit Start Time 10:08 Visit Stop Time 10:28 Total Visit Minutes 20 Number of ETHNIC STUDIES PROFESSOR Visits 0 Physical Therapy Visit Comments Patient Comments agreeable to do PT Therapy Pain Assessment Pain When Pain Assessed During Mobility Pain Present Pain Present Pain Reported Location Right Knee Scale Used pain scale not stated Pain Management Techniques Modification of Treatment,Re- positioning,Timing of Activity with Medications M4 PT-IP Mobility and Gait Start: 07/13/21 12:22 Freq: NEEDED Status: Active Protocol: Document 07/14/21 10:08 AB (Rec: 07/14/21 11:48 AB [id number]) PT-Transfer Assessment Sit to and From Stand Sit to and from Stand Minimal Assistance,Moderate Assistance,1 Person Assistance ,Use of Upper Extremities Equipment Transfer Assistive Device Gait Belt,Front Wheeled Walker Orthotic/Prosthetic Devices or Brace: No Comments Mobility Comments pt sitting on chair and agreed to do PT. completed LE exercises in sitting: LAQs and glute sets. completed sit to stand mod A and cues and ambulated in room using FWW mod A and cues ~ 30 ft. required cues for R quads activation. completed sit<>stand min A and max cues. repeated x 5 sets. positioned pt on chair. call light and table placed within reach. Gait Assessment Gait Gait Assistance Required: Moderate Assistance,1 Person Assist Distance (Feet) 30 Able to Maintain Weight Bearing Status Yes During Gait Assistive Devices Assistive Device Gait Belt,Front Wheeled Walker Orthotic/Prosthetic Devices or Brace: No Gait Deviations General Gait Pattern Antalgic,Decreased Stride Length,Decreased Feet Clearance Factors Limiting Gait Function Factors Limiting Gait Function Decreased Activity Tolerance, Decreased Strength,Pain,Poor Balance,Poor Safety Awareness M5 PT-IP Objective Assessments Start: 07/13/21 12:22 Freq: NEEDED Status: Active Protocol: Document 07/13/21 11:05 AB (Rec: 07/13/21 12:35 AB [id number]) Orientation Orientation/Cognition Level of Alertness Alert Orientation Name,Place,Situation Safety Awareness Decreased Safety Awareness Gross Range of Motion Lower Extremity ROM Assessment Within Functional Limits Strength Lower Extremity Strength Assessment Right Impaired Hip 3+/5 Knee 3+/5 Coordination Assessment Gross Coordination Gross Coordination WNL Muscle Tone Muscle Tone WNL Yes M6 PT-IP Treatment Start: 07/13/21 12:22 Freq: NEEDED Status: Active Protocol: Document 07/14/21 10:08 AB (Rec: 07/14/21 11:48 AB [id number]) Physical Therapy Treatment Exercises Exercises Gluteal Sets,Quad Sets Education Education Provided Safety M7 PT-IP Assessment and Plan Start: 07/13/21 12:22 Freq: NEEDED Status: Active Protocol: Document 07/14/21 10:08 AB (Rec: 07/14/21 11:48 AB [id number]) PT Summary Assessment and Plan Potential Rehabilitation Potential Good Summary Impairments Pain,ROM,Strength,Balance, Coordination,Sensation,Tone, Cognition,Bed Mobility, Transfers,Gait,Activity Tolerance Progress Towards Goals Slow Progress due to Activity Tolerance Assessment Summary pt requiring mod A with mobility using FWW for ambulation. pt will benefit from SNF rehab to improve strength and functional independence. Goals Bed Mobility Goal Standby Assistance Transfer Goal Standby Assistance,Front Wheeled Walker Gait Goal Standby Assistance,Front Wheel Walker Gait Distance 150 Other Goals up/down 4 steps B rails SBA Days to Meet Goals 10 Frequency of Treatment Frequency Of Treatment Once a Day Treatment Plan Physical Therapy Treatment Plan Bed Mobility Training,Transfer Training,Gait Training, Therapeutic Exercise,Balance Retraining,Post Op Education, Discharge Planning,Hot or Cold Pack,Neuromuscular Re-ed, Coordination Retraining,Manual Therapy Precautions Other Precautions falls Recommendations To Nursing Amount of Assist Needed 1 Person Assist Discharge Recommendations PT Discharge Recommendations SNF Rehab Transportation Needs at Discharge Wheelchair/Cabulance
--- NOTE | 2021-07-14 11:25 | CM.DPNOTE ---
DCP Note Spoke w/March/[facility]. It turns out patient's [facility] plan is contracted through a [place] [employer] plan which has been very challenging to navigate. March believes the auth is now in process and awaiting an answer. Dr Perez and patient/spouse are awaiting an update. Plan remains: DC to [facility] if insurance auth can be secured JW
--- NOTE | 2021-07-14 15:50 | PM.PN.1 ---
Subjective Subjective Date Patient Seen: 07/14/21 Time Patient Seen: 07:30 Interval history: 86-year-old male city had a fairly rough night last night. Said his shingles pain was coming back. With nerve like pain in his right leg on the inside of his thigh down to his knee. Fire Deborah irritating pain given a dose of gabapentin which helped. His memory is much more clear today. More alert. Provides a fairly good history of what happened the home now. He is having a lot of right knee pain which is chronic and ongoing for the patient. With known history of osteoarthritis. Says is limiting his ability ambulate and has been for a long time. Exam Vital Signs (past 8 hours): - 07/14/21 08:35 07/14/21 12:50 Temperature 97.2 F L Pulse Rate 80 Respiratory Rate 18 Blood Pressure 151/88 H Pulse Oximetry 95 94 Oxygen Delivery Method Room Air Oxygen Flow Rate 0 Narrative Exam Narrative: Gen.: Alert where he is at [facility] now. Aware of the month and day. HEENT: Pupils equal round and reactive or mucosa is moist neck is supple Cardio: S1-S2 systolic murmur present Respiratory: Lungs are clear to auscultation no wheezes or crackles normal respiratory effort. Abdomen: Soft nontender no rebound or guarding no liver spleen enlargement no appreciable hernias Extremities: Full range of motion no appreciable weakness no cyanosis or edema. Neurologic: Grossly intact. Objective Labs Result Diagrams: 07/13/21 05:17 07/13/21 05:17 Labs: Laboratory Results - last 24 hr 07/13/21 19:49 A. baumannii (PCR) Not detected Rhoda albicans (PCR) Not detected C. glabrata (PCR) Not detected C. krusei (PCR) Not detected C. parapsilosis (PCR) Not detected C. tropicalis (PCR) Not detected Enterobacteriac sp PCR Not detected E. cloacae complex PCR Not detected Enterococcus sp PCR Not detected E. coli (PCR) Not detected H. influenzae (PCR) Not detected Klebsiella oxytoca PCR Not detected Klebsiella pneumoniae Not detected List. monocytogenes PCR Not detected N. meningitidis (PCR) Not detected Proteus species (PCR) Not detected Serratia marcescens PCR Not detected Staphylococcus sp PCR Not detected Staph aureus (PCR) Not detected mecA-Methicil Res Gene Not Reportable Streptococcus sp PCR Not detected Group A Strep (PCR) Not detected Strep agalactiae (PCR) Not detected Strep pneumoniae (PCR) Not detected P. 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 Gait instability Gout Greater trochanteric bursitis of left hip Hemorrhoids Herniated nucleus pulposus, L5-S1, left History of small bowel obstruction Hyperlipidemia Hypertension Iliotibial band syndrome, left leg Myocardial infarction 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) Pelvic somatic dysfunction Piriformis syndrome of left side Polymyalgia rheumatica Sacral region somatic dysfunction Small bowel obstruction Somatic dysfunction of lower extremity 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 Possible medication side effect due to gabapentin and potentially a Percocet for severe shingles outbreak with neuropathy. Differential possibilities include infectious which has been ruled out as well as cerebrovascular insult or injury which does not appear likely based on neurological evaluation and CT scan. Patient's mental status is improved or last 24-[address] scan were reviewed. No new concerning findings this morning vital signs have been stable and afebrile. Shingles with post herpetic neuralgia still with some significant pain in the right leg. Restart gabapentin at a low dose. Avoid narcotics. Continue with Tylenol. Has caused some difficulty has patient has arthritis of his spine and knee. He is complaining of being able to walk because of the pain if shingles knee pain and back pain. Think will benefit from physical therapy rehabilitation and he is starting to make progress. Had a number of falls at home over the last few weeks in the think this would be beneficial. Patient will be able to participate in physical therapy and this will hopefully allow him to be able to head home home. Osteoarthritis of knee and back. Contributing to his difficulty with ambulation and mobility. Patient will benefit from physical therapy. Coronary artery disease chronic and stable. Hypertension blood pressure is controlled. Hyperlipidemia currently on a statin. Disposition plan. Discharged to senior living facility. Work on physical therapy and rehabilitation. Discussed with discharge planning. Anticipate discharge tomorrow for short-stay snf. Time Spent With Patient Critical Care time: I spent a total of [] minutes of critical care time on this patient's care today; this time is exclusive of procedural time.
[2021-07-14] MEDS: ENOXAPARIN 40 MG/0.4 ML SYRINGE SUBCUT (16:44)
[2021-07-14] MEDS: ATORVASTATIN 20 MG TABLET 10 MG PO (20:29)
[2021-07-15 00:05] VITALS: O2SAT 93
[2021-07-15] MEDS: ACETAMINOPHEN 325 MG TABLET 650 MG PO ×2 (00:05→06:48)
[2021-07-15 00:28] VITALS: BP 134/67; PULSE 70; RESP 16; TEMP 36.8; O2SAT 93
[2021-07-15 04:49] VITALS: BP 127/73; PULSE 76; RESP 18; TEMP 36.6; O2SAT 98
[2021-07-15 07:00] VITALS: O2SAT 96
[2021-07-15 07:10] VITALS: BP 147/84; PULSE 64; RESP 18; TEMP 36.4; O2SAT 94
--- NOTE | 2021-07-15 07:25 | P.DS_ITS ---
History of Present Illness History of Present Illness Chief complaint: GLF Narrative: 86-year-old male with a history of arthritis recurrent small-bowel obstructions coronary artery disease hypertension hyperlipidemia and anxiety recently had a diagnosis of shingles on his right lower extremity which is now resolved and has post herpetic neuralgia. In addition due to his osteoarthritis his spine and lower extremities patient has had decreasing limited mobility over the last few years. Patient resides at home with his who provides caregiving needs. She has noticed some increased difficulty in the last few months with the his transferring weakness and concerns about him getting him out of the house. After he had the outbreak of shingles. Patient's mobility decreased even more. In now he is complaining of a lot of pain. He has been placed on Neurontin which she has had on and off for his arthritis of his spine. And in the last few weeks he has had a prescription for oxycodone that he takes 1 or 2 tablets at night. In the last 24 hours. Patient was evaluated by me in his office with his complaining that he is increasingly weak. Did complaining of knee pain and post shingles pain on the right side. Patient's it had not had any resources at home for her. She was wondering what the next steps are to help with patient transferring bathing and her concerns about being able to take care of him. On the way to the office for appointment patient had a fall in the garage. After evaluation in the clinic. Patient was able to transfer home. But over the day patient became increasing week. His noted that she had a hard time getting him out of bed. For urination he had a couple of falls. They were able to get him back into bed. And ultimately fell again that evening. Patient had a neighbor come over they were and able to get him back into bed so the emergency number was called and he was brought to the emergency department. Not only was the increasing week but his noted that he was more confused he was a little bit out of it he was shaking and had tremors. She was unaware that he had any fever. He recently has not had any cough proper problems with bowel movements nausea or vomiting. Patient has not had any major skin rashes. No nasal congestion or discharge. Patient has ongoing issues with increased urination. Today on evaluation. He remembers seeing me in the office does not remember little bit later than day unsure what they did form in the emergency room knows he did at [facility] he does not know the day date or time. Discharge Providers Provider Date of admission: 07/12/21 21:54 Discharge Date: 07/15/21 Primary care physician: Samson Perez MD Consults: 07/12/21 22:52 Consult to Discharge Planning Routine Comment: Consult to Occupational Therapy Evaluate & Treat Comment: Physician Instructions: Evaluate and treat Consult to Physical Therapy Evaluate & Treat Comment: Physician Instructions: Evaluate and Treat Discharge provider: Samson Perez MD Summary Hospital Course Discharge Diagnosis: Metabolic encephalopathy Shingles with post herpetic neuralgia Coronary artery disease Hypertension Hyperlipidemia Osteoarthritis Hospital Course: Patient was admitted the hospital after frequent falls change in baseline mental status. Had workup and evaluation in the emergency department including laboratory testing blood cultures CT scan of head and neck viral testing procalcitonin as well as cardiac markers. Patient's laboratory testing were unrevealing as far as concerning for infection. CT scan did not show any acute cerebrovascular injury. Patient's medications have recently been adjusted due to increasing pain and discomfort to post herpetic neuralgia and was on Neurontin as well as Percocet. There was concerns about medication mismanagement. Although he and his stays he has only been taking 1 maybe 2 Percocet usually at night. Nonetheless he was admitted because of his altered mental status significant difficulty with ambulation and difficulty to care for himself with the assistance of his During the hospital stay he worked with physical therapy occupational therapy he had repeat laboratory evaluation vital signs were stable afebrile. Mentation resume to normal within 24-48 hours. Time of discharge. He still required sig nificant assistance due to the pain in his lower extremity on the right side due to shingles. Which is been concerning to him consistently. He was restarted on low-dose of gabapentin and worse with physical therapy and occupational therapy. He was eating and tolerating his diet. 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 Gait instability Gout Greater trochanteric bursitis of left hip Hemorrhoids Herniated nucleus pulposus, L5-S1, left History of small bowel obstruction Hyperlipidemia Hypertension Iliotibial band syndrome, left leg Myocardial infarction 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) Pelvic somatic dysfunction Piriformis syndrome of left side Polymyalgia rheumatica Sacral region somatic dysfunction Small bowel obstruction Somatic dysfunction of lower extremity 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) Trigeminal neuralgia Zoster Surgical History H/O prostate biopsy H/O total cystectomy History of angioplasty (2001) History of gastrointestinal surgery Hx of inguinal hernia surgery Status post cholecystectomy Family History Father Macular degeneration Sister Hypertension Social History marital status: number of children: 0 household members: spouse Smoking Status: Never smoker alcohol intake: current substance use type: does not use caffeine: Yes Discharge Plan Discharge Plan Patient Disposition: SNF Transportation: Facility vehicle I certify the postop hospital intermediate care is medically necessary on a continuing basis for any conditions for which he/ she received care during this hospitalization.: Yes The receiving facility has agreed to accept transfer and provide medical treatment.: Yes Discharge orders & Medications Prescriptions: New gabapentin [Neurontin] 300 mg Capsule 300 mg PO BID Qty: 60 RF: 0 Continued VITAMIN D (Vitamin D3) 1,000 unit PO QDAY Qty: 0 RF: 0 aspirin 81 mg Tablet,Chewable 81 mg PO DAILY Qty: 0 RF: 0 simvastatin 20 mg tablet 20 mg PO HS Qty: 90 RF: 3 allopurinol 100 mg tablet 100 mg PO DAILY Qty: 90 RF: 3 citalopram 40 mg tablet 40 mg PO DAILY Qty: 90 RF: 3 atenolol 50 mg tablet 100 mg PO DAILY Qty: 180 RF: 3 finasteride 5 mg tablet 5 mg PO DAILY Qty: 90 RF: 3 gabapentin 300 mg capsule See Rx Instructions PO BID PRN (Reason: pain) Qty: 150 RF: 3 Discontinued Probiotic 3 billion cell capsule 3,000 mmu cells PO DAILY RF: 0 CA PANTOTHENATE/FOLIC ACID/VIT (MULTIVITAMIN) 1 liq PO QDAY Qty: 0 RF: 0 oxycodone 5 mg tablet 5 mg PO BEDTIME Qty: 20 RF: 0 oxycodone-acetaminophen 5-325 mg tablet 1 tab PO Q6H PRN (Reason: pain) Qty: 15 RF: 0 Follow up/Referrals: Samson Perez MD [Primary Care Provider] - Visit Report/Discharge Packet Visit Report Forms: Stroke Signs & Symptoms Discharge Data Primary Care Provider: Samson Perez Attending Provider: Samson Perez Admit Date/Time: 07/12/21 21:54
[2021-07-15] MEDS: FINASTERIDE 5 MG TABLET PO (09:11)
[2021-07-15] MEDS: CHOLECALCIFEROL (VITAMIN D3) 1,000 UNIT TABLET 1000 UNIT PO (09:11)
[2021-07-15] MEDS: allopurinoL 100 MG TABLET PO (09:11)
[2021-07-15] MEDS: CITALOPRAM 10 MG TABLET 40 MG PO (09:11)
[2021-07-15] MEDS: ASPIRIN 81 MG CHEW TAB PO (09:11)
[2021-07-15] MEDS: ENOXAPARIN 40 MG/0.4 ML SYRINGE SUBCUT (09:11)
[2021-07-15] MEDS: atenoloL 50 MG TABLET 100 MG PO (09:11)
[2021-07-15] MEDS: GABAPENTIN 300 MG CAPSULE PO (09:12)
[2021-07-15] MEDS: SODIUM CHLORIDE 0.9% FLUSH 10 ML IV (09:12)
--- NOTE | 2021-07-15 09:21 | CM.DPC ---
DCP Cont: Patient is to be discharged to [facility] today. Dr. Perez put in discharge orders. Had ROLA James assistant director of admissions, fax over med sheets, PASSR, and DC Summary, along with vaccine information. White board at main nursing station updated, and gave nurse, Effie, glenn for report. P: Patient is to be discharged to [facility] today, picker and packer time is 11:30. Candy Howard RN/Wood Machinist
--- NOTE | 2021-07-15 10:48 | OT.IP.TRT ---
Current Diagnoses Metabolic encephalopathy (07/12/21) Occupational Therapy Treatment Note M2 OT-IP Current Condition Start: 07/13/21 11:41 Freq: Status: Active Protocol: Document 07/13/21 11:41 [facility] (Rec: 07/13/21 12:13 [facility] [id number]) Occupational Therapy Current Condition Current Condition Evaluation Date 07/13/21 Treatment Diagnosis PNA, acute metabolic encephalopathy, GLF Diagnosis Onset Date 07/12/21 M3 OT- IP Subjective and Pain Start: 07/13/21 11:41 Freq: Status: Active Protocol: Document 07/15/21 12:34 [facility] (Rec: 07/15/21 12:45 [facility] [id number]) OT- Subjective Occupational Therapy Visit Type Type Treatment Note Visit Start Time 10:00 Visit Stop Time 10:48 Total Visit Minutes 48 Occupational Therapy Visit Comments Patient Comments Pt agreed to shower. Patient/Caregiver Goals Pt's wants pt to go to skilled rehab to get stronger and get his right knee problem resolved. OT Pain Assessment Pain When Pain Assessed At Rest Pain Present Pain Present Denied Pain M4 OT- IP ADL's Start: 07/13/21 11:41 Freq: Status: Active Protocol: Document 07/15/21 12:34 [facility] (Rec: 07/15/21 12:45 [facility] [id number]) OT [id number] Comments OT Self-Feeding Comments Not at meal time. OT ADL-Grooming General Evaluation Grooming Ability Standby Assistance Areas Needing Assistance Retrieving/Set-up of Grooming Items Comments OT Grooming Comments ABle to stand with FWW from grooming needs. OT ADL-Oral Care General Eval Oral Care Ability Independent OT ADL-Dressing General Eval Lower Body Dressing Ability Maximum Assistance Comments OT Dressing Comments Pt too tired from showering and needing assist to help nava socks over his feet and brief over his feet. OT ADL-Toileting General Evaluation Toileting Ability Standby Assistance Comments OT Toileting Comments VC for completeness. OT ADL-Bathing Bathing Type Bathing Type Shower General Evaluation Bathing Ability Moderate Assistance Areas Needing Assistance Wash/Dry Back,Wash/Dry Lower Extremities Comments OT Bathing Comments Pt needing assist to help wash / dry his hair, back , and feet. Pt able to sit for most of the task and needing CGA to help stand and and use of grab bars in the shower for balance. M6 OT- IP Functional Cognition Start: 07/13/21 11:41 Freq: Status: Active Protocol: Document 07/15/21 12:34 [facility] (Rec: 07/15/21 12:45 [facility] [id number]) Cognitive Factors Limiting Selfcare Function Cognitive Comments Cognitive Assessment Comments Pt needing cues for insight and safety for FWW use and completeness while showering. Pt's states will now startt helping him for showering needs when he goes home. Also oswaldo paln on installing grab bars for the shower soon. In addition to get a shower chair with armrest and back for the shower. M7 OT- IP Mobility and Balance Start: 07/13/21 11:41 Freq: Status: Active Protocol: Document 07/15/21 12:34 [facility] (Rec: 07/15/21 12:45 [facility] [id number]) OT-Transfer Assessment Sit to and From Stand Sit to and from Stand Standby Assistance,Minimal Assistance,Moderate Assistance Transfers Transfer Ability Contact Guard Assistance Technique Transfer Destination Bed,Chair,Shower Stall,Toilet Transfer Technique Stand Step Pivot Devices Transfer Assistive Devices Gait Belt,Front Wheeled Walker Comments Mobility Comments Pt needing MODA to stand from lower surfaces. Pt tends to want to grab and push on the FWW to stand and educated to push on the armrest of the chair or use of grab bar to stand. CGA and Polo to help step over the threshold of the shower with FWW. At times pt needing assist to help keep the FWW closer to him when he walks. OT- Balance Assessment Sitting Balance and Reactions Static Sitting Balance Ability Normal Dynamic Sitting Balance Ability Good Standing Balance and Reactions Static Standing Balance Ability Fair Dynamic Standing Balance Ability Poor M9 OT- IP Assessment and Plan Start: 07/13/21 11:41 Freq: Status: Active Protocol: Document 07/15/21 12:34 [facility] (Rec: 07/15/21 12:45 [facility] [id number]) OT Summary Assessment and Plan Potential Rehabilitation Potential Good Analytic Complexity at Evaluation Moderate Summary OT Impairments Pain,Balance,Coordination, Functional Cognition, Functional Mobility,Self- Feeding,Grooming,Dressing, Toileting,Bathing,Toilet Transfers,Shower Transfers, Activity Tolerance Progress Towards Goals Progressing Toward Goals Assessment Summary Pt able to assist with showering today. Pt looking to go to skilled rehab today. Goals Self-Feeding Goal Standby Assistance Grooming Goal Independent Dressing Goal Independent Bathing Goal Standby Assistance Toilet Transfer Goal Independent Shower Transfer Goal Independent Patient/Caregiver Education Goal Caregiver Independent Assisting Patient Days to Meet Goals 7 Frequency of Treatment Frequency Of Treatment Once a Day Treatment Plan OT Treatment Plan ADL Training,Functional Cognition Training,Functional Mobility,Patient/Family Education,Discharge Planning Discharge Recommendations OT Discharge Recommendations SNF Rehab Home Equipment Needs shower chair, grab bar, hand held shower spray Transportation Needs at Discharge Wheelchair/Cabulance
--- NOTE | 2021-07-15 11:13 | CM.DPNOTE ---
Faxed order, PASRR, signed med sheet to [facility] per Pam. Erika Wynn CM Asst.
--- NOTE | 2021-07-15 11:39 | PC.NURSE ---
Patient A/o x 3, ambulating with FWW to restroom. Tele removed for discharge to [facility], IV removed prior to shower with OT. Patient tolerated. Patient endorses pain in RLE, Tylenol administered earlier. Patient reports given to Gege at [facility].
[2021-07-15 12:14] LABS: COVID19 -Nasal RAPID Negative (Negative)
[2021-07-15 12:45] VITALS: O2SAT 97
--- NOTE | 2021-07-15 13:41 | PT-IP ANOTE ---
checked on pt this morning and has d/c plan to SNF in ~ 20 min and requested to not do PT. spouse stated that he just had a shower and since he is discharging will be better for pt to rest at this time.
== END 2021-07-15 11:45 ==
LOC: ED 18:45 → AC 21:56
PROVIDERS: Admitting Provider Internal Medicine; Emergency Provider Emergency Medicine; PCP Family Medicine; Visit Provider Family Medicine
DX: G93.41 Metabolic encephalopathy (principal); B02.29 Other postherpetic nervous system involvement; I10 Essential (primary) hypertension; E78.5 Hyperlipidemia, unspecified; M17.11 Unilateral primary osteoarthritis, right knee; M47.9 Spondylosis, unspecified; I25.10 Atherosclerotic heart disease of native coronary artery without angina pectoris; I45.10 Unspecified right bundle-branch block; Z20.822 Contact with and (suspected) exposure to COVID-19
CPT/HCPCS: 36415; 70450; 70496; 70498; 71260; 72125; 74177; 80048; 80053; 80305; 80320; 81001; 82140; 82550; 83605; 83690; 84145; 84484; 85025; 85610; 85730; 87040; 87150; 87186; 87205; 87635; 93005; 93010; 94760; 96361; 96365; 96366; 97116; 97162; 97166; 97530; 97535; 99284; 99285; C9803; G0378; J1650

== ENCOUNTER → 2021-07-23 10:27 | Outpatient (ROUT) | payer OTHER, SELFPAY ==
[2021-07-12 22:57] VITALS: BMI 22.3
[2021-07-23 10:41] LABS: Bilirubin Urine UA NEGATIVE (NEGATIVE); Color Urine UA YELLOW; Glucose Urine UA NEGATIVE (Negative); Ketones Urine UA TRACE (NEGATIVE); Leukocyte Esterase Urine UA 3+ (NEGATIVE); Nitrite Urine UA POSITIVE (Negative); Occult Blood Urine UA 3+ (Negative); Protein Urine UA 3+ (Negative); Urobilinogen Urine UA 0.2 E.U./dL (0.2); pH Urine UA 6.5 (4.5-8.0)
[2021-07-23 10:44] LABS: Appearance Urine UA CLOUDY
[2021-07-23 10:52] LABS: Amorphous Sediment Urine 1+; Bacteria Urine Many (>30); Culture Indicated Urine Specimen Cultured; Mucus Urine 2+ (Negative); RBC Urine 30-100/HPF (0-5/HPF); Squamous Epithelial Cell Urine 1-5 /HPF (0-5/HPF); WBC Urine >100/HPF (0-5/HPF)
== END ==
PROVIDERS: PCP Family Medicine; Visit Provider Emergency Medicine
DX: R35.0 Frequency of micturition (principal)
CPT/HCPCS: 81001; 87077; 87086; 87147; 87186

== ENCOUNTER → 2021-07-28 20:07 | Outpatient (ROUT) | payer OTHER, SELFPAY ==
[2021-07-12 22:57] VITALS: BMI 22.3
== END ==
PROVIDERS: PCP Family Medicine; Visit Provider Nurse Practitioner
DX: N39.0 Urinary tract infection, site not specified (principal)
CPT/HCPCS: 87077; 87086; 87147; 87186

== ENCOUNTER → 2021-07-29 11:12 | Outpatient (CLI) | payer OTHER, SELFPAY ==
[2021-07-12 22:57] VITALS: BMI 22.3
== END ==
PROVIDERS: PCP Family Medicine; Referring Provider Nurse Practitioner; Visit Provider Nurse Practitioner
DX: I45.81 Long QT syndrome (principal)
CPT/HCPCS: 93005

== ENCOUNTER → 2021-08-05 08:13 | Outpatient (ROUT) | payer OTHER, SELFPAY ==
[2021-07-12 22:57] VITALS: BMI 22.3
[2021-08-05 09:26] LABS: Appearance Urine UA CLOUDY; Bilirubin Urine UA NEGATIVE (NEGATIVE); Color Urine UA YELLOW; Glucose Urine UA NEGATIVE (Negative); Ketones Urine UA NEGATIVE (NEGATIVE); Leukocyte Esterase Urine UA 3+ (NEGATIVE); Nitrite Urine UA NEGATIVE (Negative); Occult Blood Urine UA 1+ (Negative); Protein Urine UA 1+ (Negative); Specific Gravity Urine UA <=1.005 (1.000-1.035); Urobilinogen Urine UA 0.2 E.U./dL (0.2)
[2021-08-05 09:52] LABS: Bacteria Urine Few (2-10); RBC Urine 1-5/HPF (0-5/HPF); Squamous Epithelial Cell Urine None Seen (0-5/HPF); WBC Urine >100/HPF (0-5/HPF)
[2021-08-05 09:53] LABS: Culture Indicated Urine Specimen Cultured
== END ==
PROVIDERS: PCP Family Medicine; Visit Provider Emergency Medicine
DX: N39.0 Urinary tract infection, site not specified (principal)
CPT/HCPCS: 81001; 87077; 87086; 87186

== ENCOUNTER → 2021-10-31 11:13 | Outpatient (CLI) | payer OTHER, SELFPAY ==
[2021-07-12 22:57] VITALS: BMI 22.3
--- NOTE | 2021-10-31 11:17 | DI.CT.S_ITS ---
PROCEDURE: CT ABDOMEN PELVIS W CON INDICATIONS: RLQ pain - suspected right inguinal hernia TECHNIQUE: After the administration of oral and IV contrast, axial sections were acquired from the lung bases to the pubic symphysis. Coronal and sagittal reformats were performed. For radiation dose reduction, the following was used: automated exposure control, adjustment of mA and/or kV according to patient size. COMPARISON: [facility], CT, CT ABDOMEN PELVIS W CON, 10/13/2020, 17:11. [facility], CT, CT ABDOMEN PELVIS W CON, 06/15/2021, 12:44. FINDINGS: Image quality: Excellent. Lung bases: Scattered atelectasis in bilateral lung bases are seen Heart: Heart size is normal, no pericardial effusion. ABDOMEN: Liver: Liver is normal in size. Hepatic steatosis is seen, well-circumscribed hypodense area involving inferior medial aspect of right hepatic lobe is again seen unchanged from prior study and measures 1.2 x 1.1 cm in size series 2, image 27. Gallbladder: Gallbladder is surgically absent Biliary ducts: Unremarkable. Pancreas: Unremarkable. Spleen: Unremarkable. Adrenal Glands: Unremarkable. Kidneys and Ureters: Nonobstructing stone is seen in midpole of left kidney series 2, image 35 and measures 3.4 mm in size. Bilateral renal cysts are noted. No hydronephrosis. There is suggestion of a 2.6 x 2.3 x 2.2 cm solid lesion seen in upper pole of left kidney series 4, image 38 and series 2, image 32. This was noted on 10/13/2020 study which measured approximately 2.4 x 2.2 cm in size. Stomach and Bowel: There is no bowel obstruction. No abnormal bowel wall thickening or mesenteric fat stranding. Small hiatal hernia is seen. Appendix is visualized and is within normal limits. Mild to moderate sigmoid colon diverticulosis is seen without pericolonic fat stranding or wall thickening. No abscess collection. Peritoneum: No abnormal intraperitoneal fluid. No free air. Ventral Wall: No hernia. Abdominal Nodes: No retroperitoneal or mesenteric adenopathy by size criteria. Vessels: Aorta and inferior vena cava are normal in size. Moderate atherosclerotic calcifications throughout abdominal aorta is seen. PELVIS: Pelvic Organs: Enlarged prostate gland is seen with significant mass effect on floor of urinary bladder. Bladder: Mild diffuse bladder wall thickening is noted, no discrete bladder wall mass. Pelvic Nodes: No enlarged lymph nodes. Miscellaneous: Bilateral inguinal hernia are seen more prominent on the right side containing fat only. Bones: No suspicious bony lesion. No vertebral body compression fractures. IMPRESSION: 1. Right greater than left bilateral inguinal hernia containing fat only. No incarcerated bowel loop is seen. 2. No bowel obstruction or abnormal bowel wall thickening. Normal appendix. Colonic diverticulosis without CT evidence of acute diverticulitis. No free fluid or free air. Small hiatal hernia. 3. Patient's known exophytic and enhancing mass in upper pole of left kidney is minimally increased in size compared to prior study in 2019. Renal cell cancer cannot be excluded . 4. Enlarged prostate gland with mass effect on floor of urinary bladder and mild diffuse bladder wall thickening. Finding likely represent chronic urinary outlet obstruction. Dictated by: Massimo Rosenberg M.D. on 10/31/2021 at 12:39 Approved by: Massimo Rosenberg M.D. on 10/31/2021 at 13:39
[2021-10-31 11:50] LABS: BUN Creatinine Ratio 15.1 (6-22); Blood Urea Nitrogen 13 mg/dL (9-20); Carbon Dioxide 30 mmol/L (22-32); Chloride 105 mmol/L (98-107); Estimated Glomerular Filt Rate > 60.0 mL/min (>60); Glucose 98 mg/dL (80-110); HEMOLYSIS < 15 (0-50); Potassium 4.4 mmol/L (3.4-5.1); Sodium 140 mmol/L (137-145)
== END ==
PROVIDERS: PCP Family Medicine; Referring Provider Physician Assistant; Visit Provider Physician Assistant
DX: K40.20 Bilateral inguinal hernia, without obstruction or gangrene, not specified as recurrent (principal); K57.30 Diverticulosis of large intestine without perforation or abscess without bleeding; N28.89 Other specified disorders of kidney and ureter; Z01.812 Encounter for preprocedural laboratory examination; K44.9 Diaphragmatic hernia without obstruction or gangrene; N40.0 Benign prostatic hyperplasia without lower urinary tract symptoms; R10.31 Right lower quadrant pain
CPT/HCPCS: 36415; 74177; 80048

== ENCOUNTER → 2021-11-11 08:58 | Outpatient (CLI) | payer OTHER, SELFPAY ==
[2021-07-12 22:57] VITALS: BMI 22.3
--- NOTE | 2021-11-11 08:59 | DI.US.S_ITS ---
PROCEDURE: US RENAL COMPLETE INDICATIONS: FOLLOW UP CT - LEFT KIDNEY MASS TECHNIQUE: Real-time scanning was performed of the kidneys and bladder, with image documentation. COMPARISON: [facility], CT, CT ABDOMEN PELVIS W CON, 10/31/2021, 12:28. [facility], US, US RENAL COMPLETE, 09/22/2020, 12:11. FINDINGS: Kidneys: Right kidney measures 10.9 cm long; left kidney measures 9.8 cm long. Right renal cortical thickness is 1.8 cm; left renal cortical thickness is 1.8 cm. Right kidney: Anechoic and hypoechoic cortical lesions are seen, measuring up to 3.5 cm, most consistent with cysts. Left: An isoechoic mass is seen in the upper pole, measuring up to 2.7 cm. Echogenic foci, likely reflecting nephrolithiasis. Hypoechoic lesion in the lower pole, measuring up to 3.4 cm, compatible with a cyst. Bladder: Pre-void bladder volume is 130 mL. Post-void residual is 40 mL. Pre-void images demonstrate wall thickening with intraluminal debris. On pre-void images, no ureteral jets are noted with color Doppler interrogation. (Of note, ureteral jets may not be detectable in up to 25% of cases due to insufficient differences in specific gravity between ureteral and bladder urine). Miscellaneous: No free pelvic fluid. Enlargement of the prostate, measuring up to 6.4 cm. IMPRESSION: 1. No significant change of the patient's left upper pole renal mass. 2. Wall thickening of the urinary bladder with layering debris. 3. Prostatomegaly. Dictated by: Tu Denis M.D. on 11/11/2021 at 14:41 Approved by: Tu Denis M.D. on 11/11/2021 at 14:47
== END ==
PROVIDERS: PCP Family Medicine; Referring Provider Physician Assistant; Visit Provider Physician Assistant
DX: R93.89 Abnormal findings on diagnostic imaging of other specified body structures (principal); N28.89 Other specified disorders of kidney and ureter; N40.0 Benign prostatic hyperplasia without lower urinary tract symptoms
CPT/HCPCS: 76770

== ENCOUNTER 2022-01-29 20:04 | Emergency (ER) | payer OTHER, SELFPAY ==
[2021-07-12 22:57] VITALS: BMI 22.3
[2022-01-29 20:26] VITALS: BP 179/103; PULSE 67; RESP 14; TEMP 36.4; O2SAT 94; BMI 24.1
[2022-01-29 20:39] VITALS: PULSE 64; RESP 21; O2SAT 92
[2022-01-29 20:43] LABS: Add Manual Diff / Slide Review NO; Basophils Absolute Auto 0 /uL (0-100); Basophils Percent Auto 0.4 % (0-2); Eosinophils Absolute Auto 0 /uL (0-450); Eosinophils Percent Auto 0.7 % (2-4); Hematocrit 35.5 % (41-53); Lymphocytes Absolute Auto 3300 /uL (1100-4500); Lymphocytes Percent Auto 57.3 % (25-40); Mean Corpuscular HGB Conc 33.7 % (30-36); Mean Corpuscular Hemoglobin 27.8 PG (26-34); Mean Corpuscular Volume 82.5 fL (80-100); Monocytes Absolute Auto 700 /uL (0-900); Monocytes Percent Auto 12.7 % (3-14); Neutrophils Absolute Auto 1700 /uL (1500-7000); Neutrophils Percent Auto 28.9 % (50-75); Platelet Count 306 X10^3/uL (150-400); Red Cell Distribution Width 14.5 % (11.6-14.8); White Blood Cell Count 5.8 X10^3/uL (4.5-11.0)
[2022-01-29 20:47] LABS: Alanine Aminotransferase 14 IU/L (<50); Albumin 4.5 g/dL (3.5-5.0); Albumin Globulin Ratio 1.2 (1.0-2.8); Alkaline Phosphatase 83 U/L (38-126); Aspartate Aminotransferase 29 IU/L (17-59); Bilirubin Total 0.5 mg/dL (0.2-1.3); Blood Urea Nitrogen 17 mg/dL (9-20); Carbon Dioxide 27 mmol/L (22-32); Chloride 102 mmol/L (98-107); Estimated Glomerular Filt Rate > 60.0 mL/min (>60); Globulin 3.8 g/dL (1.7-4.1); Glucose 109 mg/dL (80-110); HEMOLYSIS 34 (0-50); Lipase 116 U/L (23-300); Potassium 4.5 mmol/L (3.4-5.1); Sodium 137 mmol/L (137-145); Total Protein 8.3 g/dL (6.3-8.2)
--- NOTE | 2022-01-29 20:49 | ED.GENADULT ---
HPI - General Adult General Chief complaint: Abdominal Pain Stated complaint: ABD Pain Time Seen by Provider: 01/29/22 20:05 Source: EMS Mode of arrival: EMS History of Present Illness HPI narrative: 86-year-old gentleman with a history of prior small-bowel obstruction, coronary artery disease, hypertension, hyperlipidemia and a recent episode of zoster involving his left leg presents with left-sided abdominal pain. It has been increasing in intensity over the last 3 days to the point where it is consistently painful and seems to be worse with moving twisting and deep breathing. He has noted this evening that he seems a bit clammy but has not had any overt fevers. No vomiting or diarrhea. He notes his last bowel movement was about 2 days ago which is not entirely unusual for him he does have a fairly good bowel regimen of stool softeners and prune juice escalating when he has not had a bowel movement. He states that he is passing gas. He has not noticed any headaches, global weakness and no skin changes or abnormalities over his abdomen. Related Data Home Medications Medication Instructions Recorded Confirmed VITAMIN D (Vitamin D3) 1,000 unit PO QDAY #0 12 12/14/21 Previous Rx's Medication Instructions Recorded citalopram 40 mg tablet 40 mg PO DAILY #90 tab 11/15/21 finasteride 5 mg tablet 5 mg PO DAILY #90 tab 11/15/21 atenolol 50 mg tablet 100 mg PO DAILY #180 tab 11/16/21 gabapentin 300 mg capsule See Rx Instructions PO BID PRN 11/23/21 #150 cap atorvastatin 10 mg tablet 10 mg PO DAILY #90 tab 11/28/21 Allergies Allergy/AdvReac Type Severity Reaction Status Date / Time carbamazepine [CARBAMAZEPINE] Allergy Mild HIVES Verified 12/14/21 13:33 codeine [CODEINE] Allergy Mild CONSTIPATIO Verified 12/14/21 13:33 N tamsulosin [TAMSULOSIN] Allergy Mild REAL BAD Verified 12/14/21 13:33 COUGH morphine [MORPHINE] AdvReac Unknown severe Verified 12/14/21 13:33 nausea/vomiting Review of Systems Review of Systems Narrative: Remainder of complete review of systems is otherwise unremarkable except for that included in the HPI. 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) Pelvic somatic dysfunction Piriformis syndrome of left side Polymyalgia rheumatica Sacral region somatic dysfunction Shingles outbreak Small bowel obstruction Somatic dysfunction of lower extremity 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) Trigeminal neuralgia Zoster Surgical History H/O prostate biopsy H/O total cystectomy History of angioplasty (2001) History of gastrointestinal surgery Hx of inguinal hernia surgery Status post cholecystectomy Family History Father Macular degeneration Sister Hypertension Social History marital status: number of children: 0 household members: spouse Smoking Status: Never smoker alcohol intake: current substance use type: does not use caffeine: Yes Smoking Status: Never smoker alcohol intake frequency: a few times a week Substance Use Type: does not use Exam Initial Vital Signs Initial Vital Signs: Vital Signs Temperature 97.6 F 01/29/22 20:26 Pulse Rate 67 01/29/22 20:26 Respiratory Rate 14 01/29/22 20:26 Blood Pressure 179/103 H 01/29/22 20:26 Pulse Oximetry 94 01/29/22 20:26 General: Frail and chronically ill-appearing but in no acute distress. Able to give a complete and coherent history. HEENT: Moist mucous membranes, normal sclera with reactive pupils, Neck: No JVD, supple Respiratory: Lungs are clear to auscultation, no wheezing no rales no rhonchi. Full and symmetrical air movement Cardiac: Regular rate and rhythm no murmurs no bruits Abdomen: Soft, mild tenderness from the epigastrium along the left side into the left lower quadrant without rebound or guarding, good bowel tones, no flank pain Skin: Warm and dry, no rashes Neurologic: Grossly neurologically intact with no obvious asymmetries or abnormalities Extremities: No trauma, well perfused, no lower extremity edema Psych: Cooperative, appropriate insight and affect Course Orders Ordered: ED Orders 01/29/22 20:18 Complete Blood Count AUTO DIFF Stat Comprehensive Metabolic Panel Stat Lipase Stat 01/29/22 20:59 CT abdomen pelvis w con Stat Hydromorphone HCl (Hydromorphone 0.5 Mg Inj) 0.5 mg IV Q15MIN PRN PRN Reason: Pain, Last Admin: 01/29/22 21:07 Dose: 0.5 mg Documented by: JOSHUA Sodium Chloride (Normal Saline 0.9%) 1,000 mls @ 150 mls/hr IV CONT SOFÍA Last Admin: 01/29/22 21:07 Dose: 150 mls/hr Documented by: JOSHUA Discontinued Medications Ondansetron HCl (Ondansetron 4 Mg/2 Ml Inj) 4 mg IV NOW ONE Stop: 01/29/22 21:00 Last Admin: 01/29/22 21:07 Dose: 4 mg Documented by: JOSHUA Vital Signs Vital signs: Vital Signs - 8 hr 01/29/22 20:26 01/29/22 20:39 01/29/22 21:00 Temperature 97.6 F Pulse Rate 67 64 64 Respiratory Rate 14 21 18 Blood Pressure 179/103 H 179/86 H Pulse Oximetry 94 92 95 01/29/22 21:30 01/29/22 22:00 Temperature Pulse Rate 69 65 Respiratory Rate 17 16 Blood Pressure 171/84 H 170/80 H Pulse Oximetry 92 93 Medical Decision Making Lab Data Result diagrams: 01/29/22 20:18 01/29/22 20:18 Labs: Lab Results 01/29/22 01/29/22 Range/Units 20:18 20:18 WBC 5.8 (4.5-11.0) X10^3/uL RBC 4.30 L (4.5-5.9) X10^6/uL Hgb 12.0 L (13.5-17.5) g/dL Hct 35.5 L (41-53) % MCV 82.5 (80-100) fL MCH 27.8 (26-34) PG MCHC 33.7 (30-36) % RDW 14.5 (11.6-14.8) % Plt Count 306 (150-400) X10^3/uL Neut % (Auto) 28.9 L (50-75) % Lymph % (Auto) 57.3 H (25-40) % Hendricks % (Auto) 12.7 (3-14) % Eos % (Auto) 0.7 L (2-4) % Baso % (Auto) 0.4 (0-2) % Neut # (Auto) 1700 (8664-2233) /uL Lymph # (Auto) 3300 (0846-9480) /uL Hendricks # (Auto) 700 (0-900) /uL Eos # (Auto) 0 (0-450) /uL Baso # (Auto) 0 (0-100) /uL Sodium 137 (137-145) mmol/L Potassium 4.5 (3.4-5.1) mmol/L Chloride 102 (98-107) mmol/L Carbon Dioxide 27 (22-32) mmol/L BUN 17 (9-20) mg/dL Creatinine 0.85 (0.66-1.25) mg/dL Estimated GFR > 60.0 (>60) mL/min BUN/Creatinine Ratio 20.0 (6-22) Glucose 109 (80-110) mg/dL Calcium 9.0 (8.4-10.2) mg/dL Total Bilirubin 0.5 (0.2-1.3) mg/dL AST 29 (17-59) IU/L ALT 14 (<50) IU/L Alkaline Phosphatase 83 (38-126) U/L Total Protein 8.3 H (6.3-8.2) g/dL Albumin 4.5 (3.5-5.0) g/dL Globulin 3.8 (1.7-4.1) g/dL Albumin/Globulin Ratio 1.2 (1.0-2.8) Lipase 116 (23-300) U/L Imaging Data CT scan - abdomen/pelvis: Radiologist's Impression: FINDINGS:? Image quality:? Excellent.? ? Lung bases:? Scattered bibasilar atelectasis. Heart:? Heart size appears normal. Coronary atherosclerotic vascular calcifications are noted. ? ABDOMEN: Liver:? Hepatic steatosis.? Redemonstration of well-circumscribed hepatic hypodensity along the medial aspect of the caudate lobe measuring 1.1 x 1.2 cm (image 25/series 2). Gallbladder:? Gallbladder is surgically absent. Biliary ducts: No intrahepatic or extrahepatic biliary ductal dilatation identified. ? Pancreas:? Homogeneous enhancement without focal lesions or pancreatic ductal dilatation. ?No peripancreatic inflammation or organized fluid collections. Spleen:? Unremarkable.? ? Adrenal Glands:? Unremarkable.? ? Kidneys and Ureters:? Redemonstration of bilateral renal cysts.? Nonobstructing 3 mm left nephrolith is again noted.? No hydronephrosis.? Redemonstration of possible heterogeneous upper pole left renal cyst measuring 2.4 x 2.1 cm (image 33/series 4).? This is relatively stable since 2019. Bilateral ureters are normal in course and caliber.? ? Stomach and Bowel:? Stomach, small bowel loops, and colon are unremarkable.? There is a large amount of fecal material seen in the rectum.? No evidence for obstruction proximally.? There is scattered colonic diverticulosis with minimal stranding surrounding a very short segment of distal descending colon/proximal sigmoid colon.? Epicenter of inflammatory changes appear to be adjacent to this segment of colon in the anterior aspect of the left lower abdomen with somewhat circumscribed fat attenuation center best seen on image 54/series 2 (measuring 2.8 x 0.9 cm in size). Peritoneum:? No abnormal intraperitoneal fluid.? No free air.? ? Ventral Wall: ? No hernias.? Abdominal Nodes:? No retroperitoneal or mesenteric adenopathy by size criteria.? Vessels:? Scattered atherosclerotic calcifications of the abdominal aorta and iliac vessels without aneurysmal dilatation.? The inferior vena cava appears patent. ? PELVIS: Pelvic Organs:? Persistent prostatomegaly. Bladder:? Mild circumferential urinary bladder wall thickening which may be in part due to incomplete distension versus sequela of chronic bladder outlet obstruction syndrome given enlarged prostate gland. Pelvic Nodes: No enlarged lymph nodes.? Miscellaneous:? Small fat containing bilateral inguinal hernias without acute inflammation. ? Bones: No acute vertebral body compression fractures. Multilevel spondylitic changes throughout the imaged spine.? No suspicious osseous lesions. ? IMPRESSION:? ? 1. Inflammatory changes surrounding a circumscribed region of fat in the anterior left lower abdomen measuring 2.8 x 0.9 cm.? Findings are compatible with epiploic appendagitis with likely secondary inflammatory changes of immediately adjacent short segment of colon at the junction of the distal descending and sigmoid colon. ? 2. Stable appearance of enhancing upper pole left renal mass.? This has been stable since October 13, 2020. Recommend continued clinical surveillance and imaging follow-up. ? 3. Prostatomegaly with findings compatible with chronic bladder outlet obstruction syndrome. ? 4. Atherosclerotic vascular disease. ? 5. Nonobstructing 3 mm left nephrolith. ? Other chronic findings as above.? ? ? Dictated by: Jeremy Broderick M.D. on 01/29/2022 at 21:32 MDM Narrative Medical decision making narrative: 86-year-old gentleman complains of left-sided abdominal pain increasing over the last 3 days. Lab workup is reassuring. CT scan suggests moderate constipation as well as epiploic appendagitis with likely secondary inflammatory changes. No evidence of acute diverticulitis, appendicitis or bowel obstruction. He is noted to have a bladder distended at 750 cc and apparently at 1 point had been on tamsulosin but then developed an allergy to it. He is unable to void but feels that he will be able to do so at home and flatly refuses straight cath. We discussed using a suppository in the morning along with increased prune juice. I reassured his that he can not overdose on prune juice. I also suggested adding some additional dried fruit as a source of fiber to help with his constipation. At this time he is safe for home discharge him Discharge Plan Departure Patient Disposition: Home Clinical Impression: Epiploic appendagitis, Enlarged prostate with urinary retention Constipation Qualifiers: Constipation type: unspecified constipation type Qualified Code(s): K59.00 - Constipation, unspecified Instructions: DI for Benign Prostatic Hyperplasia, DI for Constipation Activity Restrictions/Additional Instructions: Thank you for coming in today 1 of the small little fat appendage is hanging off the edge of your colon is inflamed. This is not appendicitis and it is not diverticulitis. You do not have a bowel obstruction. This will get better by itself in you do not need any antibiotics. With the pain from this, you can have worsening of your chronic constipation and I suspect that is also happening. You do have a lot of stool through the left side of your colon. I have given you a suppository to use when you get up in the morning. It is okay to use as much prune juice as you desire, you can not overdose on firmed use. I would also recommend adding some extra fiber in the form of other dried fruit. Please note you have almost 750 cc of urine in your bladder. Sometimes with your bladder this distended you will have difficulty with having a bowel movement as well. I would encourage you to schedule an appointment with your primary care physician to talk about alternatives beyond tamsulosin to help with your large prostate and chronic urinary retention If you develop fevers, worsening pain, new symptoms or additional findings please feel free to return to the emergency department Prescriptions: No Action VITAMIN D (Vitamin D3) 1,000 unit PO QDAY Qty: 0 0RF citalopram 40 mg tablet 40 mg PO DAILY Qty: 90 3RF finasteride 5 mg tablet 5 mg PO DAILY Qty: 90 3RF atenolol 50 mg tablet 100 mg PO DAILY Qty: 180 3RF gabapentin 300 mg capsule See Rx Instructions PO BID PRN (Reason: pain) Qty: 150 3RF Rx Instructions: 300mg BID New dose from Dr Perez today 07/14/21 atorvastatin 10 mg tablet 10 mg PO DAILY Qty: 90 1RF Referrals: Samson Perez MD [Primary Care Provider] -
--- NOTE | 2022-01-29 20:59 | DI.CT.S_ITS ---
PROCEDURE: CT ABDOMEN PELVIS W CON INDICATIONS: left side abdominal pain TECHNIQUE: After the administration of intravenous contrast, axial sections acquired from the lung bases to the pubic symphysis. Coronal and sagittal reformats were performed. For radiation dose reduction, the following was used: automated exposure control, adjustment of mA and/or kV according to patient size. COMPARISON: [facility], CT, CT ABDOMEN PELVIS W CON, 10/13/2020, 17:11. [facility], CT, CT ABDOMEN PELVIS W CON, 10/31/2021, 12:28. [facility], CT, CT ABDOMEN PELVIS W CON, 06/15/2021, 12:44. FINDINGS: Image quality: Excellent. Lung bases: Scattered bibasilar atelectasis. Heart: Heart size appears normal. Coronary atherosclerotic vascular calcifications are noted. ABDOMEN: Liver: Hepatic steatosis. Redemonstration of well-circumscribed hepatic hypodensity along the medial aspect of the caudate lobe measuring 1.1 x 1.2 cm (image 25/series 2). Gallbladder: Gallbladder is surgically absent. Biliary ducts: No intrahepatic or extrahepatic biliary ductal dilatation identified. Pancreas: Homogeneous enhancement without focal lesions or pancreatic ductal dilatation. No peripancreatic inflammation or organized fluid collections. Spleen: Unremarkable. Adrenal Glands: Unremarkable. Kidneys and Ureters: Redemonstration of bilateral renal cysts. Nonobstructing 3 mm left nephrolith is again noted. No hydronephrosis. Redemonstration of possible heterogeneous upper pole left renal cyst measuring 2.4 x 2.1 cm (image 33/series 4). This is relatively stable since 2019. Bilateral ureters are normal in course and caliber. Stomach and Bowel: Stomach, small bowel loops, and colon are unremarkable. There is a large amount of fecal material seen in the rectum. No evidence for obstruction proximally. There is scattered colonic diverticulosis with minimal stranding surrounding a very short segment of distal descending colon/proximal sigmoid colon. Epicenter of inflammatory changes appear to be adjacent to this segment of colon in the anterior aspect of the left lower abdomen with somewhat circumscribed fat attenuation center best seen on image 54/series 2 (measuring 2.8 x 0.9 cm in size). Peritoneum: No abnormal intraperitoneal fluid. No free air. Ventral Wall: No hernias. Abdominal Nodes: No retroperitoneal or mesenteric adenopathy by size criteria. Vessels: Scattered atherosclerotic calcifications of the abdominal aorta and iliac vessels without aneurysmal dilatation. The inferior vena cava appears patent. PELVIS: Pelvic Organs: Persistent prostatomegaly. Bladder: Mild circumferential urinary bladder wall thickening which may be in part due to incomplete distension versus sequela of chronic bladder outlet obstruction syndrome given enlarged prostate gland. Pelvic Nodes: No enlarged lymph nodes. Miscellaneous: Small fat containing bilateral inguinal hernias without acute inflammation. Bones: No acute vertebral body compression fractures. Multilevel spondylitic changes throughout the imaged spine. No suspicious osseous lesions. IMPRESSION: 1. Inflammatory changes surrounding a circumscribed region of fat in the anterior left lower abdomen measuring 2.8 x 0.9 cm. Findings are compatible with epiploic appendagitis with likely secondary inflammatory changes of immediately adjacent short segment of colon at the junction of the distal descending and sigmoid colon. 2. Stable appearance of enhancing upper pole left renal mass. This has been stable since October 13, 2020. Recommend continued clinical surveillance and imaging follow-up. 3. Prostatomegaly with findings compatible with chronic bladder outlet obstruction syndrome. 4. Atherosclerotic vascular disease. 5. Nonobstructing 3 mm left nephrolith. Other chronic findings as above. Dictated by: Jeremy Broderick M.D. on 01/29/2022 at 21:32 Approved by: Jeremy Broderick M.D. on 01/29/2022 at 21:46
[2022-01-29 21:00] VITALS: BP 179/86; PULSE 64; RESP 18; O2SAT 95
[2022-01-29] MEDS: HYDROMORPHONE 0.5 MG INJ IV ×2 (21:07→23:09)
[2022-01-29] MEDS: ONDANSETRON 4 MG/2 ML INJ IV (21:07)
[2022-01-29] MEDS: SODIUM CHLORIDE 0.9% 1,000 ML 150 ML IV (21:07)
[2022-01-29 21:30] VITALS: BP 171/84; PULSE 69; RESP 17; O2SAT 92
[2022-01-29 22:00] VITALS: BP 170/80; PULSE 65; RESP 16; O2SAT 93
[2022-01-29 22:30] VITALS: BP 158/74; PULSE 64; RESP 16; O2SAT 92
--- NOTE | 2022-01-29 22:54 | PC.NURSE ---
Pt bladder scanned -- 735ml in bladder. helped pt to stand and pt unable to urinate. pt refusing catheter to empty bladder. states i know im going to be able to pee as soon as i get home Dr Anton made aware
[2022-01-29] MEDS: BISACODYL 10 MG SUPP PR (23:09)
== END 2022-01-29 23:18 | disposition home or self-care (01) ==
PROVIDERS: Emergency Provider Emergency Medicine; PCP Family Medicine
DX: K59.00 Constipation, unspecified (principal); K63.89 Other specified diseases of intestine; N40.1 Benign prostatic hyperplasia with lower urinary tract symptoms; R33.8 Other retention of urine; I10 Essential (primary) hypertension
CPT/HCPCS: 51798; 74177; 80053; 83690; 85025; 93005; 93010; 96374; 96375; 99284; J1170; J2405; Q9967

== ENCOUNTER 2022-02-16 10:25 | Emergency (ER) | payer OTHER, SELFPAY ==
[2021-07-12 22:57] VITALS: BMI 22.3
[2022-02-16] VITALS (12 sets, daily range): BP systolic 97–159; BP diastolic 52–72; PULSE 60–78; RESP 15–24; TEMP 36.1; O2SAT 92–99; BMI 24.1
--- NOTE | 2022-02-16 10:34 | DI.RAD.S_ITS ---
PROCEDURE: XR CHEST 1V INDICATIONS: chest pain TECHNIQUE: One view of the chest was acquired. COMPARISON: [facility], CT, CT CHEST ABD PEL W CON, 07/12/2021, 18:48. [facility], CR, CHEST 2 VIEW, 06/29/2016, 22:27. [facility], CR, XR CHEST 1V, 09/02/2020, 11:39. FINDINGS: Surgical changes and devices: None. Lungs and pleura: On this semiupright portable chest examination, no large pneumothorax or large pleural effusions are seen. No focal infiltrates are seen. Mediastinum: The cardiac contours are within normal limits. The aorta demonstrates calcification and tortuosity. Bones and chest wall: No suspicious bony lesions. Age-appropriate bony degenerative changes are seen. Overlying soft tissues appear unremarkable. IMPRESSION: Limited portable chest examination, without a significant cardiopulmonary abnormality identified. Dictated by: Yannick Elizabeth M.D. on 02/16/2022 at 10:05 Approved by: Yannick Elizabeth M.D. on 02/16/2022 at 10:06
--- NOTE | 2022-02-16 10:36 | PC.NURSE ---
Diarrhea at home, has had a syncopal in past after loose bowels. Joppa episode coming on and was lowered to the floor by and neighbor. Patient reports dizziness at home. Improved after approx 250ml of fluid by EMS. Patient denies any injury, no pain. reports some constipation over last couple days taking stool softners and prune juice to aid in bowel movements it just opened up this morning
[2022-02-16 10:41] LABS: Add Manual Diff / Slide Review NO; Basophils Absolute Auto 0 /uL (0-100); Basophils Percent Auto 0.5 % (0-2); Eosinophils Absolute Auto 0 /uL (0-450); Eosinophils Percent Auto 0.6 % (2-4); Hematocrit 27.7 % (41-53); Hemoglobin 9.1 g/dL (13.5-17.5); Lymphocytes Absolute Auto 2400 /uL (1100-4500); Lymphocytes Percent Auto 46.9 % (25-40); Mean Corpuscular HGB Conc 32.8 % (30-36); Mean Corpuscular Hemoglobin 27.6 PG (26-34); Mean Corpuscular Volume 84.2 fL (80-100); Monocytes Absolute Auto 600 /uL (0-900); Monocytes Percent Auto 11.3 % (3-14); Neutrophils Absolute Auto 2100 /uL (1500-7000); Neutrophils Percent Auto 40.7 % (50-75); Platelet Count 347 X10^3/uL (150-400); Red Blood Cell Count 3.29 X10^6/uL (4.5-5.9); Red Cell Distribution Width 14.9 % (11.6-14.8); White Blood Cell Count 5.1 X10^3/uL (4.5-11.0)
[2022-02-16 10:47] LABS: Alanine Aminotransferase 15 IU/L (<50); Albumin Globulin Ratio 1.3 (1.0-2.8); Alkaline Phosphatase 74 U/L (38-126); Aspartate Aminotransferase 24 IU/L (17-59); BUN Creatinine Ratio 17.8 (6-22); Bilirubin Total 0.4 mg/dL (0.2-1.3); Blood Urea Nitrogen 18 mg/dL (9-20); Calcium 8.4 mg/dL (8.4-10.2); Carbon Dioxide 26 mmol/L (22-32); Chloride 105 mmol/L (98-107); Creatine Kinase 38 U/L (55-170); Estimated Glomerular Filt Rate > 60 mL/min (>60); Globulin 3.2 g/dL (1.7-4.1); Glucose 110 mg/dL (80-110); HEMOLYSIS < 15 (0-50); Lipase 83 U/L (23-300); Magnesium 2.2 mg/dL (1.6-2.3); Potassium 4.3 mmol/L (3.4-5.1); Sodium 140 mmol/L (137-145); Total Protein 7.2 g/dL (6.3-8.2)
--- NOTE | 2022-02-16 10:48 | ED.GENADULT ---
HPI - General Adult General Chief complaint: Syncope Stated complaint: Syncope Time Seen by Provider: 02/16/22 10:35 Source: patient and EMS Mode of arrival: EMS History of Present Illness HPI narrative: Patient is an 86-year-old male. Not on anticoagulation. Does have an essential tremor. Brought in by EMS after having an episode this morning where he was too weak to get off of the toilet and potentially syncopal episodes. Patient does have GI issues. He takes a stool softener and prune juice on a daily basis. Over the past couple days he has had what he states is some constipation issues. They increased his bowel regiment and this morning he woke up from sleep and could make it to the bathroom to have a bowel movement. He did have a accident in his pants. He eventually did make it to the toilet. Had a large bowel movement there. Afterwards was very weak. Could get up off the toilet. His could not help him off the toilet. She made a small bed on the floor for him in the bathroom which she laid there for a period of time. They then had a neighbor come over to try to help him up and he was too weak to stand. EMS was called. EMS reports that his EKG and blood sugar were unremarkable. He did receive 250 cc of fluid prior to arrival. Patient states that he is feeling somewhat better. No chest pain. No shortness of breath. No abdominal pain. Related Data Home Medications Medication Instructions Recorded Confirmed VITAMIN D (Vitamin D3) 1,000 unit PO QDAY #0 11/18/11 12/14/21 Previous Rx's Medication Instructions Recorded citalopram 40 mg tablet 40 mg PO DAILY #90 tab 11/15/21 finasteride 5 mg tablet 5 mg PO DAILY #90 tab 11/15/21 atenolol 50 mg tablet 100 mg PO DAILY #180 tab 11/16/21 gabapentin 300 mg capsule See Rx Instructions PO BID PRN 11/23/21 #150 cap atorvastatin 10 mg tablet 10 mg PO DAILY #90 tab 11/28/21 Allergies Allergy/AdvReac Type Severity Reaction Status Date / Time carbamazepine [CARBAMAZEPINE] Allergy Mild HIVES Verified 02/16/22 10:32 codeine [CODEINE] Allergy Mild CONSTIPATIO Verified 02/16/22 10:32 N tamsulosin [TAMSULOSIN] Allergy Mild REAL BAD Verified 02/16/22 10:32 COUGH morphine [MORPHINE] AdvReac Unknown severe Verified 02/16/22 10:32 nausea/vomiting Review of Systems Constitutional Constitutional: Reports system reviewed and no additional complaints, except as documented ENT Ears, Nose, Mouth, and Throat: Denies vertigo Cardiovascular Cardiovascular: Reports system reviewed and no additional complaints, except as documented Respiratory Respiratory: Reports system reviewed and no additional complaints, except as documented Gastrointestinal Gastrointestinal: Reports as per HPI and Reports system reviewed and no additional complaints, except as documented Genitourinary Genitourinary: Reports system reviewed and no additional complaints, except as documented Neurologic Neurologic: Denies confusion and Denies vertigo Psychiatric Psychiatric: Denies confusion Hematologic/Lymphatic On Anticoagulants: No 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) Pelvic somatic dysfunction Piriformis syndrome of left side Polymyalgia rheumatica Sacral region somatic dysfunction Shingles outbreak Small bowel obstruction Somatic dysfunction of lower extremity 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) Trigeminal neuralgia Zoster Surgical History H/O prostate biopsy H/O total cystectomy History of angioplasty (2001) History of gastrointestinal surgery Hx of inguinal hernia surgery Status post cholecystectomy Family History Father Macular degeneration Sister Hypertension Social History marital status: number of children: 0 household members: spouse Smoking Status: Never smoker alcohol intake: current substance use type: does not use caffeine: Yes Smoking Status: Never smoker alcohol intake frequency: a few times a week Substance Use Type: does not use Exam Initial Vital Signs Initial Vital Signs: Vital Signs Temperature 97.0 F L 02/16/22 10:16 Pulse Rate 64 02/16/22 10:16 Respiratory Rate 16 02/16/22 10:16 Blood Pressure 115/72 02/16/22 10:16 Pulse Oximetry 94 02/16/22 10:16 Const General: cooperative and comfortable HENMT Head: normal to inspection and normocephalic Resp Effort & Inspection: normal respiratory effort Auscultation: clear to auscultation bilaterally Cardio Rate: regular rate Rhythm: regular rhythm GI Inspection: normal to inspection and non-distended Palpation: soft Skin General: no rashes or lesions noted Neuro General: patient alert, patient awake, patient oriented x3 and moves all extremities Speech: speech normal Other: Does have a tremor of his head and neck. Extrem General: capillary refill normal Psych Appearance: grossly normal and well kempt Course Orders Ordered: ED Orders 02/16/22 10:34 XR chest 1V Stat EKG-12 Lead Stat 02/16/22 10:38 Complete Blood Count AUTO DIFF Stat Comprehensive Metabolic Panel Stat Lipase Stat Magnesium Stat Troponin & CK Cardiac Panel Stat Discontinued Medications Sodium Chloride (Normal Saline 0.9%) 1,000 mls @ 1,000 mls/hr IV BOLUS ONE Stop: 02/16/22 13:21 Last Infusion: 02/16/22 13:46 Dose: 0 mls/hr Documented by: Admin: 02/16/22 11:15 Dose: 1,000 mls/hr Documented by: BRIAN Vital Signs Vital signs: Vital Signs - 8 hr 02/16/22 10:16 02/16/22 10:31 02/16/22 11:00 Temperature 97.0 F L Pulse Rate 64 62 60 Pulse Rate [Orthostatic Lying] Pulse Rate [Orthostatic Sitting] Pulse Rate [Orthostatic Standing] Respiratory Rate 16 18 15 Blood Pressure 115/72 121/60 Blood Pressure [Orthostatic Lying] Blood Pressure [Orthostatic Sitting] Blood Pressure [Orthostatic Standing] Pulse Oximetry 94 97 97 02/16/22 11:30 02/16/22 12:02 02/16/22 12:04 Temperature Pulse Rate 60 73 73 Pulse Rate [Orthostatic Lying] Pulse Rate [Orthostatic Sitting] Pulse Rate [Orthostatic Standing] Respiratory Rate 15 Blood Pressure 137/64 124/63 97/52 L Blood Pressure [Orthostatic Lying] Blood Pressure [Orthostatic Sitting] Blood Pressure [Orthostatic Standing] Pulse Oximetry 98 96 92 04/28/22 12:20 02/16/22 12:30 02/16/22 12:31 Temperature Pulse Rate 60 63 Pulse Rate [Orthostatic Lying] 63 Pulse Rate [Orthostatic Sitting] 78 Pulse Rate [Orthostatic Standing] 78 Respiratory Rate 15 24 Blood Pressure 159/66 H Blood Pressure [Orthostatic Lying] 137/64 Blood Pressure [Orthostatic Sitting] 124/63 Blood Pressure [Orthostatic Standing] 97/52 L Pulse Oximetry 99 98 02/16/22 13:00 02/16/22 13:11 02/16/22 13:12 Temperature Pulse Rate 61 63 Pulse Rate [Orthostatic Lying] Pulse Rate [Orthostatic Sitting] Pulse Rate [Orthostatic Standing] Respiratory Rate 18 19 Blood Pressure 147/67 H Blood Pressure [Orthostatic Lying] Blood Pressure [Orthostatic Sitting] Blood Pressure [Orthostatic Standing] Pulse Oximetry 97 96 Medical Decision Making Lab Data Lab results reviewed: Yes I reviewed the patient's lab results. Result diagrams: 02/16/22 10:38 02/16/22 10:38 Labs: Lab Results 02/16/22 02/16/22 Range/Units 10:38 10:38 WBC 5.1 (4.5-11.0) X10^3/uL RBC 3.29 L (4.5-5.9) X10^6/uL Hgb 9.1 L (13.5-17.5) g/dL Hct 27.7 L (41-53) % MCV 84.2 (80-100) fL MCH 27.6 (26-34) PG MCHC 32.8 (30-36) % RDW 14.9 H (11.6-14.8) % Plt Count 347 (150-400) X10^3/uL Neut % (Auto) 40.7 L (50-75) % Lymph % (Auto) 46.9 H (25-40) % [place] % (Auto) 11.3 (3-14) % Eos % (Auto) 0.6 L (2-4) % Baso % (Auto) 0.5 (0-2) % Neut # (Auto) 2100 (2980-6214) /uL Lymph # (Auto) 2400 (9239-3819) /uL [place] # (Auto) 600 (0-900) /uL Eos # (Auto) 0 (0-450) /uL Baso # (Auto) 0 (0-100) /uL Sodium 140 (137-145) mmol/L Potassium 4.3 (3.4-5.1) mmol/L Chloride 105 (98-107) mmol/L Carbon Dioxide 26 (22-32) mmol/L BUN 18 (9-20) mg/dL Creatinine 1.01 (0.66-1.25) mg/dL Estimated GFR > 60 (>60) mL/min BUN/Creatinine Ratio 17.8 (6-22) Glucose 110 (80-110) mg/dL Calcium 8.4 (8.4-10.2) mg/dL Magnesium 2.2 (1.6-2.3) mg/dL Total Bilirubin 0.4 (0.2-1.3) mg/dL AST 24 (17-59) IU/L ALT 15 (<50) IU/L Alkaline Phosphatase 74 (38-126) U/L Total Creatine Kinase 38 L (55-170) U/L CK-MB (CK-2) TNP CK-MB (CK-2) Rel Index TNP Troponin I < 0.012 (0.01-0.034) ng/mL Total Protein 7.2 (6.3-8.2) g/dL Albumin 4.0 (3.5-5.0) g/dL Globulin 3.2 (1.7-4.1) g/dL Albumin/Globulin Ratio 1.3 (1.0-2.8) Lipase 83 (23-300) U/L Imaging Data Chest x-ray: Radiologist's Impression: [address] [address] XRay Report Signed Patient: Mark Stevens MR#: [id number] : 1935 Acct:[id number] Age/Sex: 86 / M Date of Service: 02/16/22 Loc: ED Accession Number: [id number] ?? Procedure: XR chest 1V Ordering Provider: Buck Stewart D.O. PROCEDURE:? XR CHEST 1V ? INDICATIONS:? chest pain ? TECHNIQUE:? One view of the chest was acquired.? ? COMPARISON:? [facility], CT, CT CHEST ABD PEL W CON, 07/12/2021, 18:48.? [facility], CR, CHEST 2 VIEW, 06/29/2016, 22:27.? [facility], CR, XR CHEST 1V, 09/02/2020, 11:39. ? FINDINGS:? ? Surgical changes and devices:? None.? ? Lungs and pleura:? On this semiupright portable chest examination, no large pneumothorax or large pleural effusions are seen.? No focal infiltrates are seen.? ? Mediastinum:? The cardiac contours are within normal limits. The aorta demonstrates calcification and tortuosity. ? Bones and chest wall:? No suspicious bony lesions.? Age-appropriate bony degenerative changes are seen. ? Overlying soft tissues appear unremarkable.? IMPRESSION:? ? Limited portable chest examination, without a significant cardiopulmonary abnormality identified.? ? ? Dictated by: Yannick Elizabeth M.D. on 02/16/2022 at 10:05 ? ? Approved by: Yannick Elizabeth M.D. on 02/16/2022 at 10:06?? ECG Data Attestation: I personally reviewed and interpreted this ECG as follows: Interpretation: Sinus rhythm Ventricular rate is 61 First-degree AV block the pain arrival 304 milliseconds Left axis deviation Right bundle branch block No ST T wave changes MDM Narrative Medical decision making narrative: Patient states that he feels better after fluids here in the emergency department. He was afebrile. Has a benign exam. Was able to ambulate. I suspect that his episodes this morning were secondary to both the event of having a sudden onset of explosive diarrhea and also a degree of dehydration. I did discuss this with the patient and his . Patient can be safely discharged home. He was given return precautions. He expressed understanding and agreement. Discharge Plan Departure Patient Disposition: Home Clinical Impression: Diarrhea, Weakness Instructions: Diarrhea Activity Restrictions/Additional Instructions: I do recommend that you increase your fluid intake. Continue to take all of your medications as directed. Return to the emergency department for any new or worsening symptoms. Prescriptions: No Action VITAMIN D (Vitamin D3) 1,000 unit PO QDAY Qty: 0 0RF citalopram 40 mg tablet 40 mg PO DAILY Qty: 90 3RF finasteride 5 mg tablet 5 mg PO DAILY Qty: 90 3RF atenolol 50 mg tablet 100 mg PO DAILY Qty: 180 3RF gabapentin 300 mg capsule See Rx Instructions PO BID PRN (Reason: pain) Qty: 150 3RF Rx Instructions: 300mg BID New dose from Dr Perez today 07/14/21 atorvastatin 10 mg tablet 10 mg PO DAILY Qty: 90 1RF Referrals: Samson Perez MD [Primary Care Provider] -
[2022-02-16 10:58] LABS: Troponin I < 0.012 ng/mL (0.01-0.034)
[2022-02-16] MEDS: SODIUM CHLORIDE 0.9% 1,000 ML 1000 ML IV (11:15)
--- NOTE | 2022-02-16 12:19 | PC.NURSE ---
Dizziness with standing. Weakness in legs bilaterally
--- NOTE | 2022-02-16 13:46 | PC.NURSE ---
pt ambulated with walker. states he felt better than the first ambulation trial. pt denied dizziness.
== END 2022-02-16 13:58 | disposition home or self-care (01) ==
PROVIDERS: Emergency Provider Emergency Medicine; PCP Family Medicine
DX: R19.7 Diarrhea, unspecified (principal); R53.1 Weakness
CPT/HCPCS: 36415; 71045; 80053; 82550; 83690; 83735; 84484; 85025; 93005; 99284

== ENCOUNTER 2022-02-18 01:58 | Inpatient (IN) | payer MEDICARE, SELFPAY ==
[2021-07-12 22:57] VITALS: BMI 22.3
[2022-02-18] VITALS (36 sets, daily range): BP systolic 115–149; BP diastolic 57–71; PULSE 60–85; RESP 13–27; TEMP 35.6–36.8; O2SAT 94–100; BMI 23.8
--- NOTE | 2022-02-18 02:09 | ED_ITS ---
HPI - Nausea/Vomiting/Diarrhea General Chief complaint: GI Bleed Stated complaint: GI Bleed Time Seen by Provider: 02/18/22 02:08 History of Present Illness HPI Narrative: 86-year-old male nonsmoker with history of coronary artery disease, diverticular disease, gait instability presents by EMS for evaluation of significant generalized weakness, near syncope and lower GI bleed. He had a near syncopal event this evening when attempting to use the toilet which was followed by the production of a large amount of bright red blood and stool. He has had some loose stools off and on over the past week and was actually seen and evaluated earlier in the week and had a very reassuring exam and labs. He feels dizzy, weak and lightheaded and short of breath. He has no chest pain and denies any injury as a consequence of him using himself to the ground. EMS was activated as he is too weak to get himself off of the ground, they state that when rolling him over onto his back to get him onto their car he became dizzy, lightheaded and diaphoretic again. It took the assistance of 2 ambulance screws to get him here. Medics report nearly a whole garbage bag of paper towel saturated bright red blood from his rectum Related Data Home Medications Medication Instructions Recorded Confirmed VITAMIN D (Vitamin D3) 1,000 unit PO QDAY #0 11/18/11 12/14/21 Previous Rx's Medication Instructions Recorded citalopram 40 mg tablet 40 mg PO DAILY #90 tab 11/15/21 finasteride 5 mg tablet 5 mg PO DAILY #90 tab 11/15/21 atenolol 50 mg tablet 100 mg PO DAILY #180 tab 11/16/21 gabapentin 300 mg capsule See Rx Instructions PO BID PRN 11/23/21 #150 cap atorvastatin 10 mg tablet 10 mg PO DAILY #90 tab 11/28/21 Allergies Allergy/AdvReac Type Severity Reaction Status Date / Time carbamazepine [CARBAMAZEPINE] Allergy Mild HIVES Verified 02/16/22 10:32 codeine [CODEINE] Allergy Mild CONSTIPATIO Verified 02/16/22 10:32 N tamsulosin [TAMSULOSIN] Allergy Mild REAL BAD Verified 02/16/22 10:32 COUGH morphine [MORPHINE] AdvReac Unknown severe Verified 02/16/22 10:32 nausea/vomiting Review of Systems Review of Systems Narrative: GENERAL: Denies chills, fatigue, malaise, fever, sweats. HEENT: Denies sinus pain, ear pain, sore throat, difficulty swallowing, dizziness. RESPIRATORY: Denies dyspnea, cough, wheezing, hemoptysis, sputum. CARDIOVASCULAR: Denies chest pain, palpitations, orthopnea, edema, GASTROINTESTINAL: Denies nausea, vomiting, abdominal pain, diarrhea, constipation, melena. : Denies dysuria, frequency, incontinence, hematuria, urinary retention. MUSCULOSKELETAL: denies weakness, joint pain, or bony pain SKIN: Denies rash, skin lesions, or other NEUROLOGIC: Denies weakness, headache, numbness, change in speech, confusion, seizures, incoordination. PSYCHIATRIC: No concerning psychosocial issues. 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) Pelvic somatic dysfunction Piriformis syndrome of left side Polymyalgia rheumatica Sacral region somatic dysfunction Shingles outbreak Small bowel obstruction Somatic dysfunction of lower extremity 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) Trigeminal neuralgia Zoster Surgical History H/O prostate biopsy H/O total cystectomy History of angioplasty (2001) History of gastrointestinal surgery Hx of inguinal hernia surgery Status post cholecystectomy Family History Father Macular degeneration Sister Hypertension Social History marital status: number of children: 0 household members: spouse Smoking Status: Never smoker alcohol intake: current substance use type: does not use caffeine: Yes Smoking Status: Never smoker alcohol intake frequency: a few times a week Substance Use Type: does not use Exam Narrative Exam Narrative: GENERAL: [86 year old patient appears stated age. Well-developed patient, in mild distress. Pale and weak HEAD: Atraumatic. Normocephalic. EYES: Pale conjunctiva Pupils equal round and reactive. Extraocular motions intact. No scleral icterus. No injection or drainage. ENT: Dry mucous membranes Nose without bleeding, purulent drainage. Throat without erythema, tonsillar hypertrophy or exudate. Airway patent. NECK: Trachea midline. Non tender CARDIOVASCULAR: Regular rate and rhythm without murmurs, gallops, or rubs. RESPIRATORY: Clear to auscultation. Breath sounds equal bilaterally. No wheezes, rales, or rhonchi. GASTROINTESTINAL: Abdomen soft, non-tender, nondistended. EXTREMITIES: No edema or joint tenderness. BACK: Nontender without deformity or crepitance. No flank tenderness. NEURO: AOx3. SKIN: No rash or erythema of visible areas Initial Vital Signs Initial Vital Signs: Vital Signs Pulse Rate 67 02/18/22 02:03 Respiratory Rate 18 02/18/22 02:03 Blood Pressure 137/61 02/18/22 02:03 Pulse Oximetry 98 02/18/22 02:03 Course Orders Ordered: ED Orders 02/18/22 02:00 Complete Blood Count AUTO DIFF Stat Comprehensive Metabolic Panel Stat Prothrombin Time INR Stat 02/18/22 02:11 COVID19 -Nasal RAPID/Pre-Proc Stat 02/18/22 02:23 Packed Cells Stat Type and Screen Stat Discontinued Medications Pantoprazole Sodium (Pantoprazole 40 Mg Vial) 40 mg IV NOW ONE Stop: 02/18/22 02:10 Last Admin: 02/18/22 02:24 Dose: 40 mg Documented by: FERNANDEZ Vital Signs Vital signs: Vital Signs - 8 hr 02/18/22 02:03 02/18/22 02:09 02/18/22 02:12 Temperature 97.9 F Pulse Rate 67 67 Respiratory Rate 18 26 H Blood Pressure 137/61 Pulse Oximetry 98 98 02/18/22 02:29 02/18/22 02:30 02/18/22 02:31 Temperature Pulse Rate 67 79 Respiratory Rate 20 25 H Blood Pressure 133/60 Pulse Oximetry 98 98 MDM - Nausea/Vomiting/Diarrhea Lab Data Result diagrams: 02/18/22 02:00 02/18/22 02:00 Labs: Lab Results 02/18/22 02/18/22 02/18/22 Range/Units 02:00 02:00 02:00 WBC 6.2 (4.5-11.0) X10^3/uL RBC 2.49 L (4.5-5.9) X10^6/uL Hgb 7.0 L (13.5-17.5) g/dL Hct 21.0 L (41-53) % MCV 84.5 (80-100) fL MCH 28.0 (26-34) PG MCHC 33.1 (30-36) % RDW 14.8 (11.6-14.8) % Plt Count 321 (150-400) X10^3/uL Neut % (Auto) 43.5 L (50-75) % Lymph % (Auto) 46.2 H (25-40) % [place] % (Auto) 9.6 (3-14) % Eos % (Auto) 0.5 L (2-4) % Baso % (Auto) 0.2 (0-2) % Neut # (Auto) 2700 (9214-2676) /uL Lymph # (Auto) 2900 (3561-4907) /uL [place] # (Auto) 600 (0-900) /uL Eos # (Auto) 0 (0-450) /uL Baso # (Auto) 0 (0-100) /uL PT 12.9 H (10.1-12.7) SECONDS INR 1.2 (0.9-1.3) Sodium 137 (137-145) mmol/L Potassium 3.8 (3.4-5.1) mmol/L Chloride 107 (98-107) mmol/L Carbon Dioxide 24 (22-32) mmol/L BUN 16 (9-20) mg/dL Creatinine 0.90 (0.66-1.25) mg/dL Estimated GFR > 60 (>60) mL/min BUN/Creatinine Ratio 17.8 (6-22) Glucose 125 H (80-110) mg/dL Calcium 8.3 L (8.4-10.2) mg/dL Total Bilirubin 0.2 (0.2-1.3) mg/dL AST 23 (17-59) IU/L ALT 12 (<50) IU/L Alkaline Phosphatase 68 (38-126) U/L Total Protein 6.5 (6.3-8.2) g/dL Albumin 3.7 (3.5-5.0) g/dL Globulin 2.8 (1.7-4.1) g/dL Albumin/Globulin Ratio 1.3 (1.0-2.8) Blood Type Antibody Screen Crossmatch 02/18/22 Range/Units 02:23 WBC (4.5-11.0) X10^3/uL RBC (4.5-5.9) X10^6/uL Hgb (13.5-17.5) g/dL Hct (41-53) % MCV (80-100) fL MCH (26-34) PG MCHC (30-36) % RDW (11.6-14.8) % Plt Count (150-400) X10^3/uL Neut % (Auto) (50-75) % Lymph % (Auto) (25-40) % [place] % (Auto) (3-14) % Eos % (Auto) (2-4) % Baso % (Auto) (0-2) % Neut # (Auto) (7214-7288) /uL Lymph # (Auto) (8914-7411) /uL [place] # (Auto) (0-900) /uL Eos # (Auto) (0-450) /uL Baso # (Auto) (0-100) /uL PT (10.1-12.7) SECONDS INR (0.9-1.3) Sodium (137-145) mmol/L Potassium (3.4-5.1) mmol/L Chloride (98-107) mmol/L Carbon Dioxide (22-32) mmol/L BUN (9-20) mg/dL Creatinine (0.66-1.25) mg/dL Estimated GFR (>60) mL/min BUN/Creatinine Ratio (6-22) Glucose (80-110) mg/dL Calcium (8.4-10.2) mg/dL Total Bilirubin (0.2-1.3) mg/dL AST (17-59) IU/L ALT (<50) IU/L Alkaline Phosphatase (38-126) U/L Total Protein (6.3-8.2) g/dL Albumin (3.5-5.0) g/dL Globulin (1.7-4.1) g/dL Albumin/Globulin Ratio (1.0-2.8) Blood Type A Positive Antibody Screen Negative Crossmatch See Detail Discharge Plan Departure Patient Disposition: Admitted As Inpatient Clinical Impression: Acute GI bleeding Admit Date/Time: 02/18/22 02:42 Admit Provider: Gege Berger
[2022-02-18 02:21] LABS: INR 1.2 (0.9-1.3); Prothrombin Time 12.9 SECONDS (10.1-12.7)
[2022-02-18 02:23] LABS: Add Manual Diff / Slide Review NO; Basophils Absolute Auto 0 /uL (0-100); Basophils Percent Auto 0.2 % (0-2); Eosinophils Absolute Auto 0 /uL (0-450); Eosinophils Percent Auto 0.5 % (2-4); Lymphocytes Absolute Auto 2900 /uL (1100-4500); Lymphocytes Percent Auto 46.2 % (25-40); Mean Corpuscular HGB Conc 33.1 % (30-36); Mean Corpuscular Volume 84.5 fL (80-100); Monocytes Absolute Auto 600 /uL (0-900); Monocytes Percent Auto 9.6 % (3-14); Neutrophils Absolute Auto 2700 /uL (1500-7000); Neutrophils Percent Auto 43.5 % (50-75); Platelet Count 321 X10^3/uL (150-400); Red Blood Cell Count 2.49 X10^6/uL (4.5-5.9); Red Cell Distribution Width 14.8 % (11.6-14.8); White Blood Cell Count 6.2 X10^3/uL (4.5-11.0)
[2022-02-18] MEDS: PANTOPRAZOLE 40 MG VIAL IV ×3 (02:24→20:24)
[2022-02-18 02:26] LABS: Alanine Aminotransferase 12 IU/L (<50); Albumin 3.7 g/dL (3.5-5.0); Albumin Globulin Ratio 1.3 (1.0-2.8); Alkaline Phosphatase 68 U/L (38-126); Aspartate Aminotransferase 23 IU/L (17-59); BUN Creatinine Ratio 17.8 (6-22); Bilirubin Total 0.2 mg/dL (0.2-1.3); Blood Urea Nitrogen 16 mg/dL (9-20); Calcium 8.3 mg/dL (8.4-10.2); Carbon Dioxide 24 mmol/L (22-32); Chloride 107 mmol/L (98-107); Estimated Glomerular Filt Rate > 60 mL/min (>60); Globulin 2.8 g/dL (1.7-4.1); Glucose 125 mg/dL (80-110); HEMOLYSIS < 15 (0-50); Potassium 3.8 mmol/L (3.4-5.1); Sodium 137 mmol/L (137-145); Total Protein 6.5 g/dL (6.3-8.2)
[2022-02-18 05:34] LABS: COVID19 -Nasal RAPID Negative (Negative)
[2022-02-18 07:38] LABS: Hemoglobin 8.5 g/dL (13.5-17.5)
[2022-02-18] MEDS: ONDANSETRON 4 MG/2 ML INJ IV (09:30)
--- NOTE | 2022-02-18 09:46 | PM.HP.1 ---
History of Present Illness History of Present Illness Date Patient Seen: 02/18/22 Time Patient Seen: 09:46 Chief complaint: GI Bleed Narrative: 86-year-old male nonsmoker with history of SBO (2019), diverticular disease (two episodes in 2019), and hemorrhoids is admitted for a GI bleed. This is his third ER visit in 3 weeks. is at the bedside and history is obtained from patient, , and chart review. In the last 6 months, patient reports that his bowel movements have become progressively more explosive with watery, secretory diarrhea that with little warning, explode out of him. Sometimes, these explosions have blood and leave him feeling weak and near-syncopal. He has not talked to his PCP about his bloody stools yet. Some associated LLQ pain. Two days ago, one of these explosions was accompanied by a syncopal event. He did not have hematochezia or melena at that time. Was evaluated in the ER and noted to be stable and discharged home. On day of admission, patient again was having a diarrhea explosion and this time there was bright red blood that was copious. Per EMS, they filled a whole garbage bag of saturated paper towels. Patient is not on blood thinners. No regular NSAID use. Infrequent alcohol usage, few times per week. No excessive caffeine. Patient did not lose consciousness during this episode as before, but was starting to brown out. He felt clammy, nauseous, and extremely weak. Two ambulance crews were required to transfer him to the hospital. Last colonoscopy report not available at time of dictation. Vital signs in the hospital included a temperature of 97.9, pulse 67, respirations 18, blood pressure 137/61, oxygen saturation 98% on room air. Labs significant for a hemoglobin/hematocrit of 7.0/21.0 with normal BUN of 16. Patient was administered 2 units of PRBCs; H/H status post transfusion was 8.5/25.0. Protonix infusing. Patient currently denies any pain or nausea. He has had zofran. No further episodes of diarrhea. 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) Pelvic somatic dysfunction Piriformis syndrome of left side Polymyalgia rheumatica Sacral region somatic dysfunction Shingles outbreak Small bowel obstruction Somatic dysfunction of lower extremity 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) Trigeminal neuralgia Zoster Surgical History H/O prostate biopsy H/O total cystectomy History of angioplasty (2001) History of gastrointestinal surgery Hx of inguinal hernia surgery Status post cholecystectomy Family & Social History Family History Father Macular degeneration Sister Hypertension Social History: household members spouse Safety & Behavioral: Feels Safe in Current Yes Environment Been Physically Hurt or No Threatened By a Person Tobacco & Substance use: Smoking Status Never smoker alcohol intake current alcohol intake frequency a few times a week Substance Use Type does not use Meds Home Medications and Allergies Home Medications Medication Instructions Recorded Confirmed Type VITAMIN D (Vitamin D3) 1,000 unit PO QDAY #0 11/18/11 02/18/22 History citalopram 40 mg tablet 40 mg PO DAILY #90 tab 11/15/21 02/18/22 Rx finasteride 5 mg tablet 5 mg PO DAILY #90 tab 11/15/21 02/18/22 Rx atenolol 50 mg tablet 100 mg PO DAILY #180 tab 11/16/21 02/18/22 Rx atorvastatin 10 mg tablet 10 mg PO DAILY #90 tab 11/28/21 02/18/22 Rx Allergies Allergy/AdvReac Type Severity Reaction Status Date / Time carbamazepine [CARBAMAZEPINE] Allergy Mild HIVES Verified 02/16/22 10:32 codeine [CODEINE] Allergy Mild CONSTIPATIO Verified 02/16/22 10:32 N tamsulosin [TAMSULOSIN] Allergy Mild REAL BAD Verified 02/16/22 10:32 COUGH morphine [MORPHINE] AdvReac Unknown severe Verified 02/16/22 10:32 nausea/vomiting Review of Systems Review of Systems Narrative: All remaining ROS were reviewed and negative except as addressed. Exam Vital Signs (past 8 hours): - 02/18/22 02:03 02/18/22 02:09 02/18/22 02:12 Temperature 97.9 F Pulse Rate 67 67 Respiratory Rate 18 26 H Blood Pressure 137/61 Pulse Oximetry 98 98 02/18/22 02:29 02/18/22 02:30 02/18/22 02:31 Temperature Pulse Rate 67 79 Respiratory Rate 20 25 H Blood Pressure 133/60 Pulse Oximetry 98 98 02/18/22 03:00 02/18/22 03:23 02/18/22 03:24 Temperature 97.9 F Pulse Rate 62 63 65 Respiratory Rate 15 16 13 Blood Pressure 123/63 140/57 L 140/57 L Pulse Oximetry 97 98 02/18/22 03:30 02/18/22 03:40 02/18/22 04:00 Temperature 97.1 F L Pulse Rate 61 61 60 Respiratory Rate 14 14 14 Blood Pressure 131/65 129/60 146/67 H Pulse Oximetry 98 99 99 02/18/22 04:30 02/18/22 05:00 02/18/22 05:12 Temperature 97.9 F 97.8 F Pulse Rate 62 62 73 Respiratory Rate 15 16 16 Blood Pressure 148/69 H 142/68 H 142/68 H Pulse Oximetry 100 99 02/18/22 05:16 02/18/22 05:30 02/18/22 05:32 Temperature 97.6 F 97.6 F Pulse Rate 66 62 65 Respiratory Rate 16 16 15 Blood Pressure 127/67 147/70 H 127/67 Pulse Oximetry 100 100 02/18/22 06:00 02/18/22 06:30 02/18/22 07:35 Temperature 97.9 F Pulse Rate 64 69 67 Respiratory Rate 15 15 18 Blood Pressure 127/68 130/68 142/70 H Pulse Oximetry 98 99 99 Oxygen Delivery Method Room Air Narrative Exam Narrative: GENERAL: Alert and oriented, appearing stated age, head is tremulous. HEENT: Head normocephalic/atraumatic. Extraocular movements intact. LUNGS: Clear to ausculation bilaterally, no wheezes, rhonchi or rales. CV: Normal S1 and S2 with regular rate and rhythm, no audible murmurs, rubs or gallops. ABDOMEN: Soft, non-tende, non-distended, no organomegaly. Hypoactive bowel sounds in all four quadrants. EXTREMITIES: No clubbing, cyanosis, or edema. NEURO: Cranial nerves II through XII grossly intact, tremulous head. PSYCH: Alert and oriented x 3. SKIN: No concerning lesions. Objective Labs Result Diagrams: 02/18/22 07:30 02/18/22 02:00 Labs: Laboratory Results - last 24 hr 02/18/22 02/18/22 02/18/22 02:00 02:00 02:00 WBC 6.2 RBC 2.49 L Hgb 7.0 L Hct 21.0 L MCV 84.5 MCH 28.0 MCHC 33.1 RDW 14.8 Plt Count 321 Neut % (Auto) 43.5 L Lymph % (Auto) 46.2 H [place] % (Auto) 9.6 Eos % (Auto) 0.5 L Baso % (Auto) 0.2 Neut # (Auto) 2700 Lymph # (Auto) 2900 [place] # (Auto) 600 Eos # (Auto) 0 Baso # (Auto) 0 PT 12.9 H INR 1.2 Sodium 137 Potassium 3.8 Chloride 107 Carbon Dioxide 24 BUN 16 Creatinine 0.90 Estimated GFR > 60 BUN/Creatinine Ratio 17.8 Glucose 125 H Calcium 8.3 L Total Bilirubin 0.2 AST 23 ALT 12 Alkaline Phosphatase 68 Total Protein 6.5 Albumin 3.7 Globulin 2.8 Albumin/Globulin Ratio 1.3 SARS-CoV-2 (PCR) Blood Type Antibody Screen Crossmatch 02/18/22 02/18/22 02/18/22 02:23 05:18 07:30 WBC RBC Hgb 8.5 L Hct 25.0 L MCV MCH MCHC RDW Plt Count Neut % (Auto) Lymph % (Auto) [place] % (Auto) Eos % (Auto) Baso % (Auto) Neut # (Auto) Lymph # (Auto) [place] # (Auto) Eos # (Auto) Baso # (Auto) PT INR Sodium Potassium Chloride Carbon Dioxide BUN Creatinine Estimated GFR BUN/Creatinine Ratio Glucose Calcium Total Bilirubin AST ALT Alkaline Phosphatase Total Protein Albumin Globulin Albumin/Globulin Ratio SARS-CoV-2 (PCR) Negative Blood Type A Positive Antibody Screen Negative Crossmatch See Detail Assessment & Plan Assessment and plan (1) Acute GI bleeding: Status: Acute Assessment & Plan narrative: 1. GI bleed, acute Differential diagnosis includes diverticulitis, ischemic infarction of epiploic appendagitis, colon cancer, AVM, upper GI bleed, etc. Plan: Surgical consult. Supportive treatment with Protonix and IVF. Will trend labs. NPO for now. CT abdomen/pelvis to narrow diagnosis. 2. Hypertension, chronic Plan: Continue home atenolol. 3. Hyperlipidemia, chronic Plan: Continue home atorvastatin. 4. Bilateral renal cysts, chronic, stable 5. Gain instability, chronic Plan: PT when stable. 6. Post herpetic neuralgia, chronic Plan: Denies current issue. Will use gabapentin as needed. 7. BPH with obstruction Plan: Continue home finasteride. 8. Anxiety, chronic Plan: Continue home citalopram. FEN: NPO except for meds, D51/4NS at 75 cc/hour Code: DNR/DNI COVID: Negatgive Disposition: Anticipate at least 2 nights
[2022-02-18] MEDS: atenoloL 50 MG TABLET 100 MG PO (10:53)
[2022-02-18] MEDS: FINASTERIDE 5 MG TABLET PO (10:53)
[2022-02-18] MEDS: CITALOPRAM 10 MG TABLET 40 MG PO (10:54)
[2022-02-18] MEDS: DEXTROSE 5%-0.45% NS 1,000 ML 75 ML IV ×2 (11:21→12:11)
--- NOTE | 2022-02-18 12:57 | DI.CT.S_ITS ---
PROCEDURE: CT ABDOMEN PELVIS W CON INDICATIONS: GI bleed, check for diverticulitis, colon mass TECHNIQUE: After the administration of IV contrast, axial sections were acquired from the lung bases to the pubic symphysis. Coronal and sagittal reformats were performed. For radiation dose reduction, the following was used: automated exposure control, adjustment of mA and/or kV according to patient size. COMPARISON: [facility], CT, ANGIOGRAPHY CHEST AND ABDOMEN, 04/23/2014, 23:43. [facility], CT, CT ABDOMEN PELVIS W CON, 10/31/2021, 12:28. [facility], CT, ABDOMEN/PELVIS WITH CONTRAST, 01/13/2015, 23:41. [facility], CT, CT ABDOMEN PELVIS W CON, 01/29/2022, 21:09. FINDINGS: Image quality: Excellent. Lung bases: Minimal tree-in-bud type opacity can be seen involving the right lower lung laterally, as before. Heart: No significant findings. ABDOMEN: Liver: Unremarkable. Gallbladder: Removed. Biliary ducts: Unremarkable. Pancreas: Unremarkable. Spleen: Minimal hyperenhancement can be seen involving the lateral spleen. Adrenal Glands: Unremarkable. Kidneys and Ureters: At the superior pole of the left kidney, an enhancing mass is again seen, measuring 2.5 cm. Along the posterior aspect of the right kidney, there is a partially exophytic lesion that cannot be defined and a simple cyst, measuring approximately 40 Hounsfield units. Apparent layering debris can be seen within it. This is stable compared to 2015. Simple appearing bilateral renal cysts are seen elsewhere. The kidneys demonstrate normal size and enhance symmetrically. Within the left kidney, there is a nonobstructing 4 mm stone, as on series 2, image 25. Stomach and Bowel: Distal colonic diverticulosis is seen, without findings active diverticulitis. To the limits of this CT study performed without oral contrast, no colonic masses are seen. Stomach, small bowel loops, and colon are otherwise unremarkable. A normal appendix is incidentally noted. Peritoneum: No abnormal intraperitoneal fluid. No free air. Ventral Wall: No hernia. Abdominal Nodes: No retroperitoneal or mesenteric adenopathy by size criteria. Vessels: Aorta and inferior vena cava are normal in size. PELVIS: Pelvic Organs: Unremarkable. Bladder: The prostate is enlarged, with mass effect upon the bladder, measuring 4.4 cm. Pelvic Nodes: No enlarged lymph nodes. Miscellaneous: A moderate fat containing right inguinal hernia is seen. A trace left-sided fat containing inguinal hernia can be seen. Bones: Age-appropriate bony degenerative changes are seen. Mild levoconvex scoliotic curvature is noted. IMPRESSION: Diverticulosis is seen, without findings of active diverticulitis. No colonic masses are seen to the limits of this CT study. Please consider colonoscopy for further evaluation. Tree-in-bud type opacity can be seen involving the right lateral lung, which is nonspecific, yet most commonly relates to chronic infection. The patient's known LEFT superior pole renal mass is again seen. Renal cell carcinoma is suspected. There is minimal hyperenhancement seen involving the lateral spleen, which is nonspecific, yet most likely related to a hemangioma. Complex cyst seen of the RIGHT kidney, which is not significantly changed compared to 2015, yet considered to be a Bosniak type 2 F cyst. Incidental note is made of: Cholecystectomy Simple appearing bilateral renal cysts are seen 4 mm nonobstructing LEFT-sided kidney stone Normal appendix Levoconvex scoliotic curvature Prominent prostate, with mass effect upon the bladder Fat containing bilateral inguinal hernias Dictated by: Yannick Elizabeth M.D. on 02/18/2022 at 13:01 Approved by: Yannick Elizabeth M.D. on 02/18/2022 at 13:11
[2022-02-18] MEDS: ACETAMINOPHEN 325 MG TABLET 650 MG PO (17:56)
[2022-02-18] MEDS: ATORVASTATIN 20 MG TABLET 10 MG PO (20:23)
[2022-02-19] VITALS (7 sets, daily range): BP systolic 141–154; BP diastolic 55–87; PULSE 58–66; RESP 16–18; TEMP 36.6–37.2; O2SAT 92–100
[2022-02-19] MEDS: ONDANSETRON 4 MG/2 ML INJ IV (00:50)
[2022-02-19] MEDS: DEXTROSE 5%-0.45% NS 1,000 ML 75 ML IV (01:54)
[2022-02-19 06:00] LABS: Blood Urea Nitrogen 12 mg/dL (9-20); Calcium 8.6 mg/dL (8.4-10.2); Carbon Dioxide 27 mmol/L (22-32); Chloride 108 mmol/L (98-107); Estimated Glomerular Filt Rate > 60 mL/min (>60); Glucose 109 mg/dL (80-110); HEMOLYSIS < 15 (0-50); Potassium 4.1 mmol/L (3.4-5.1); Sodium 141 mmol/L (137-145)
[2022-02-19 06:01] LABS: Add Manual Diff / Slide Review NO; Basophils Absolute Auto 0 /uL (0-100); Basophils Percent Auto 0.4 % (0-2); Eosinophils Absolute Auto 0 /uL (0-450); Eosinophils Percent Auto 0.9 % (2-4); Hematocrit 25.9 % (41-53); Hemoglobin 8.8 g/dL (13.5-17.5); Lymphocytes Absolute Auto 2100 /uL (1100-4500); Lymphocytes Percent Auto 54.3 % (25-40); Mean Corpuscular HGB Conc 34.1 % (30-36); Monocytes Absolute Auto 600 /uL (0-900); Monocytes Percent Auto 14.8 % (3-14); Neutrophils Absolute Auto 1100 /uL (1500-7000); Neutrophils Percent Auto 29.6 % (50-75); Platelet Count 284 X10^3/uL (150-400); Red Blood Cell Count 3.05 X10^6/uL (4.5-5.9); Red Cell Distribution Width 14.9 % (11.6-14.8); White Blood Cell Count 3.9 X10^3/uL (4.5-11.0)
--- NOTE | 2022-02-19 08:04 | P.PN_ITS ---
Subjective Subjective Date Patient Seen: 02/19/22 Time Patient Seen: 08:04 Interval history: Uneventful night but has been urinating a lot. UA was not run at admission. Patient denies any further bright red bleeding per rectum, no stool since arrival. He has been drinking clear liquids, no nausea or vomiting. Denies abdominal pain. Afebrile. General surgery was by this morning, does not want to go through colonoscopy prep. Exam Vital Signs (past 8 hours): - 02/19/22 02:00 02/19/22 07:00 Temperature 98.9 F 97.8 F Pulse Rate 60 66 Respiratory Rate 16 18 Blood Pressure 154/55 H 142/87 H Pulse Oximetry 98 98 Oxygen Delivery Method Room Air Oxygen Flow Rate 0 Narrative Exam Narrative: GENERAL:? Alert and oriented, appearing stated age, head is tremulous. HEENT:? Head normocephalic/atraumatic.? Extraocular movements intact. LUNGS:? Clear to ausculation bilaterally, no wheezes, rhonchi or rales. CV:? Normal S1 and S2 with regular rate and rhythm, no audible murmurs, rubs or gallops. ABDOMEN:? Soft, non-tender, non-distended, no organomegaly.? Hypoactive bowel sounds in all four quadrants. EXTREMITIES:? No clubbing, cyanosis, or edema. NEURO:? Cranial nerves II through XII grossly intact, tremulous head. PSYCH:? Alert and oriented x 3. SKIN:? No concerning lesions. Objective Labs Result Diagrams: 02/19/22 05:28 02/19/22 05:28 Labs: Laboratory Results - last 24 hr 02/19/22 02/19/22 05:28 05:28 WBC 3.9 L RBC 3.05 L Hgb 8.8 L Hct 25.9 L MCV 85.0 MCH 29.0 MCHC 34.1 RDW 14.9 H Plt Count 284 Neut % (Auto) 29.6 L Lymph % (Auto) 54.3 H [place] % (Auto) 14.8 H Eos % (Auto) 0.9 L Baso % (Auto) 0.4 Neut # (Auto) 1100 L Lymph # (Auto) 2100 [place] # (Auto) 600 Eos # (Auto) 0 Baso # (Auto) 0 Sodium 141 Potassium 4.1 Chloride 108 H Carbon Dioxide 27 BUN 12 Creatinine 0.92 Estimated GFR > 60 BUN/Creatinine Ratio 13.0 Glucose 109 Calcium 8.6 PFSH Medical History Acute metabolic encephalopathy Bilateral renal cysts BPH w urinary obs/LUTS Cataract Coronary artery disease 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 Gait instability Gout Greater trochanteric bursitis of left hip Hemorrhoids Herniated nucleus pulposus, L5-S1, left History of small bowel obstruction Hyperlipidemia Hypertension Iliotibial band syndrome, left leg Myocardial infarction 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) Pelvic somatic dysfunction Piriformis syndrome of left side Polymyalgia rheumatica Sacral region somatic dysfunction Shingles outbreak Small bowel obstruction Somatic dysfunction of lower extremity 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 GI bleed, acute -Differential diagnosis includes diverticulitis, ischemic infarction of epiploic appendagitis, colon cancer, AVM, upper GI bleed, etc. -CT on 02/18/22 did not show diverticulitis and colonoic mass but colonoscopy recommended for further evaluation. A left superior pole renal mass was seen, concern for renal cell carcinoma. A right kidney cyst was again seen, likely benign, Brosniak type 2F cyst. Plan: ? Surgery consulting, have advised clear liquids as longs as H/H stable. Patient does not want to proceed with colonoscopy prep as he is afraid he will pass out when he goes through the diarrhea portion of the prep as that is what has been his recent problem. Discussed evaluation of left renal mass first and then possibly proceeding with a colonoscopy and patient is amenable to that. As patient's presenting complaint is bloody diarrhea and CT is suggesting a RCC, possiby dealing with a metastes at this point. Will order PET scan to try to distinguish the primary lesion. Will continue supportive treatment with Protonix and IVF.? Will trend labs.? 2. Left renal mass, concern for renal cell carcinoma Plan: Please see #2. 3.? ? Hypertension, chronic Plan:? Continue home atenolol.? 4. Hyperlipidemia, chronic Plan: Continue home atorvastatin.? 5.? Right renal cyst, chronic, stable 6.? Gait instability, chronic Plan:? PT when stable. 7. ? Post herpetic neuralgia, chronic Plan: Denies current issue.? Will use gabapentin as needed. 8. BPH with obstruction Plan:? Continue home finasteride. Will check UA. 9.? ? Anxiety, chronic Plan: Continue home citalopram. FEN:? clear liquids Code:? DNR/DNI COVID:? Negative Disposition:? Anticipate at least 2 nights
[2022-02-19] MEDS: CITALOPRAM 10 MG TABLET 40 MG PO (08:25)
[2022-02-19] MEDS: FINASTERIDE 5 MG TABLET PO (08:25)
[2022-02-19] MEDS: atenoloL 50 MG TABLET 100 MG PO (08:25)
[2022-02-19] MEDS: PANTOPRAZOLE 40 MG VIAL IV ×2 (08:25→20:11)
--- NOTE | 2022-02-19 09:19 | CM.DANOTE ---
DCP: Case received, EMR reviewed and met with patient. Introduced self and role. Was able to obtain information regarding patient's baseline activity level at home prior to hospital admission. Patient is an 86 year old male who admitted yesterday morning to the care of the hospitalist team. PCP: Dr. Perez. Payer: confirmed: [employer]. Patient came to the hospital via ambulance secondary to having weakness secondary to rectal bleeding. Patient had noted near syncope, due to lower GI bleed. Patient had large amounts of red blood and stool when he went to the bathroom, to the point that he couldn't stand up. He had ended up on the floor, and EMS was called. According to notes, patient had this symptom recently. Patient's diagnosis is acute GI bleed. Met with patient in his room. He was laying in bed, alert and oriented. Confirmed that patient resides here in [place] with his spouse, Haily. At his baseline, he no longer drives, and has a walker he does not always use it in the house. He stated, he felt bad, because his had to clean up the blood on the carpet. He also indicated, he appreciated the help from the ambulance drivers, because my and neighbor couldn't get me up. P: DCP to continue to follow for needs. He does not have current P.T. orders, but may need to see therapy when patient gets closer to discharge to see if he would be strong enough for home. Candy Howard RN/Delivery Room Clerk Discharge Planning/Care Management Advanced directive, confirm from FAMILY Start: 02/18/22 12:05 Freq: Q24H Status: Active Protocol: Document 02/18/22 12:06 EM (Rec: 02/18/22 12:07 EM [id number]) Advance Directive, confirm on record Time 12:07 Person contacted patient Copy received No CM Discharge Assessment Start: 02/19/22 09:16 Freq: Status: Active Protocol: Document 02/19/22 09:16 (Rec: 02/19/22 09:19 [id number]) Discharge Planning Assessment Assigned Hearing Instrument Specialist Candy Howard RN/Delivery Room Clerk Advance Directives? Yes Advance Directives on File No History Provided By Patient,Family Member, Significant Other,Medical Record Prior Living Arrangements House Household Members spouse Type of transporation used prior to Relies on Others admit Independent with ADL's Yes Needs Assistance With Meal Prep,Home Chores / Shopping Caregiver for Another No DME Already Rented / Owned FWW / Walker Barriers to Discharge No Discharge Plan Home Transportation Arrangement Spouse Whiteboard Updated in Patient Room with Yes name and ext. # of Hearing Instrument Specialist Review Status In Process Next Review Type Continued Stay Review
[2022-02-19] MEDS: ACETAMINOPHEN 325 MG TABLET 650 MG PO ×3 (11:19→23:06)
--- NOTE | 2022-02-19 11:25 | P.CONS_ITS ---
History of Present Illness Consult details Date Patient Seen: 02/19/22 Time Patient Seen: 11:26 Chief complaint: GI Bleed Narrative: 86-year-old man admitted hospital for GI bleed. Hemodynamically stable at admission yesterday hematocrit 21 received 2 units of packed red blood cells, current hematocrit is 26. Over the past month he has had several ER visits for GI related issues. No NSAIDS or anticoagulants. No hx of peptic ulcer disease. On this admission he presented for with copious bright red blood per rectum. Previous colonoscopy he suspects was approximately 10 years ago and normal. Since admission yesterday he has had no further blood per rectum current Hct 26. CT A/P 02/18 demonstrates diverticulosis no diverticulitis or colon masses, there is a left renal mass concerning for renal cell carcinoma. Meds Home Medications and Allergies Home Medications Medication Instructions Recorded Confirmed Type VITAMIN D (Vitamin D3) 1,000 unit PO QDAY #0 11/18/11 02/18/22 History citalopram 40 mg tablet 40 mg PO DAILY #90 tab 11/15/21 02/18/22 Rx finasteride 5 mg tablet 5 mg PO DAILY #90 tab 11/15/21 02/18/22 Rx atenolol 50 mg tablet 100 mg PO DAILY #180 tab 11/16/21 02/18/22 Rx atorvastatin 10 mg tablet 10 mg PO DAILY #90 tab 11/28/21 02/18/22 Rx Allergies Allergy/AdvReac Type Severity Reaction Status Date / Time carbamazepine [CARBAMAZEPINE] Allergy Mild HIVES Verified 02/16/22 10:32 codeine [CODEINE] Allergy Mild CONSTIPATIO Verified 02/16/22 10:32 N tamsulosin [TAMSULOSIN] Allergy Mild REAL BAD Verified 02/16/22 10:32 COUGH morphine [MORPHINE] AdvReac Unknown severe Verified 02/16/22 10:32 nausea/vomiting Exam Vital Signs (past 8 hours): - 02/19/22 07:00 02/19/22 08:43 Temperature 97.8 F Pulse Rate 66 Respiratory Rate 18 Blood Pressure 142/87 H Pulse Oximetry 98 92 Oxygen Delivery Method Room Air Oxygen Flow Rate 0 Narrative Exam Narrative: GENERAL: Elderly man in no apparent distress HEENT: No scleral icterus CV: Regular rate, no peripheral edema LUNGS: No increased work of breathing. Patient speaks in full sentences without oxygen support. ABDOMEN: Soft, non-tender, non-distended SKIN: Warm and dry Objective Labs Result Diagrams: 02/19/22 05:28 02/19/22 05:28 Labs: Laboratory Results - last 24 hr 02/19/22 02/19/22 05:28 05:28 WBC 3.9 L RBC 3.05 L Hgb 8.8 L Hct 25.9 L MCV 85.0 MCH 29.0 MCHC 34.1 RDW 14.9 H Plt Count 284 Neut % (Auto) 29.6 L Lymph % (Auto) 54.3 H [place] % (Auto) 14.8 H Eos % (Auto) 0.9 L Baso % (Auto) 0.4 Neut # (Auto) 1100 L Lymph # (Auto) 2100 [place] # (Auto) 600 Eos # (Auto) 0 Baso # (Auto) 0 Sodium 141 Potassium 4.1 Chloride 108 H Carbon Dioxide 27 BUN 12 Creatinine 0.92 Estimated GFR > 60 BUN/Creatinine Ratio 13.0 Glucose 109 Calcium 8.6 PFSH Medical History Acute metabolic encephalopathy Bilateral renal cysts BPH w urinary obs/LUTS Cataract Coronary artery disease 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 Gait instability Gout Greater trochanteric bursitis of left hip Hemorrhoids Herniated nucleus pulposus, L5-S1, left History of small bowel obstruction Hyperlipidemia Hypertension Iliotibial band syndrome, left leg Myocardial infarction 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) Pelvic somatic dysfunction Piriformis syndrome of left side Polymyalgia rheumatica Sacral region somatic dysfunction Shingles outbreak Small bowel obstruction Somatic dysfunction of lower extremity 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) Trigeminal neuralgia Zoster Surgical History H/O prostate biopsy H/O total cystectomy History of angioplasty (2001) History of gastrointestinal surgery Hx of inguinal hernia surgery Status post cholecystectomy Family History Father Macular degeneration Sister Hypertension Social History marital status: number of children: 0 household members: spouse Tobacco & Substance Use Smoking Status: Never smoker alcohol intake: current substance use type: does not use Diet and Exercise caffeine: Yes Assessment & Plan Assessment and plan (1) Acute GI bleeding: Status: Acute Assessment & Plan narrative: 86-year-old man with likely renal cell carcinoma admitted with a lower GI bleed hemodynamically stable current hematocrit 26. No further blood per rectum since admission. I offered the patient colonoscopy for further evaluation however he is reluctant to proceed at this point. He will discuss this further with his medical team and they will update us with his preference. Time Spent With Patient Critical Care time: I spent a total of [] minutes of critical care time on this patient's care today; this time is exclusive of procedural time.
[2022-02-19] MEDS: ATORVASTATIN 20 MG TABLET 10 MG PO (20:11)
[2022-02-19] MEDS: SODIUM CHLORIDE 0.9% FLUSH 10 ML IV (20:11)
[2022-02-19 23:33] LABS: Appearance Urine UA CLEAR; Bilirubin Urine UA NEGATIVE (NEGATIVE); Color Urine UA YELLOW; Glucose Urine UA NEGATIVE (Negative); Ketones Urine UA NEGATIVE (NEGATIVE); Leukocyte Esterase Urine UA NEGATIVE (NEGATIVE); Nitrite Urine UA NEGATIVE (Negative); Occult Blood Urine UA NEGATIVE (Negative); Protein Urine UA NEGATIVE (Negative); Urobilinogen Urine UA 0.2 E.U./dL (0.2)
[2022-02-19 23:41] LABS: Bacteria Urine None Seen; Culture Indicated Urine Cult Not Indicated; RBC Urine None Seen (0-5/HPF); Urine Comments Microscopic Normal; WBC Urine None Seen (0-5/HPF)
[2022-02-20] VITALS (12 sets, daily range): BP systolic 129–160; BP diastolic 55–85; PULSE 56–70; RESP 14–20; TEMP 36.1–37.2; O2SAT 94–97
[2022-02-20 05:25] LABS: Add Manual Diff / Slide Review NO; Basophils Absolute Auto 0 /uL (0-100); Basophils Percent Auto 0.5 % (0-2); Eosinophils Absolute Auto 0 /uL (0-450); Eosinophils Percent Auto 1.1 % (2-4); Hematocrit 25.9 % (41-53); Hemoglobin 8.9 g/dL (13.5-17.5); Lymphocytes Absolute Auto 2000 /uL (1100-4500); Lymphocytes Percent Auto 54.7 % (25-40); Mean Corpuscular HGB Conc 34.2 % (30-36); Mean Corpuscular Hemoglobin 28.7 PG (26-34); Mean Corpuscular Volume 83.8 fL (80-100); Monocytes Absolute Auto 500 /uL (0-900); Monocytes Percent Auto 14.8 % (3-14); Neutrophils Absolute Auto 1100 /uL (1500-7000); Neutrophils Percent Auto 28.9 % (50-75); Platelet Count 297 X10^3/uL (150-400); Red Blood Cell Count 3.09 X10^6/uL (4.5-5.9); Red Cell Distribution Width 15.6 % (11.6-14.8); White Blood Cell Count 3.6 X10^3/uL (4.5-11.0)
[2022-02-20 05:33] LABS: Blood Urea Nitrogen 13 mg/dL (9-20); Calcium 8.3 mg/dL (8.4-10.2); Carbon Dioxide 27 mmol/L (22-32); Chloride 106 mmol/L (98-107); Estimated Glomerular Filt Rate > 60 mL/min (>60); Glucose 89 mg/dL (80-110); HEMOLYSIS < 15 (0-50); Potassium 3.9 mmol/L (3.4-5.1); Sodium 139 mmol/L (137-145)
[2022-02-20] MEDS: ACETAMINOPHEN 325 MG TABLET 650 MG PO ×2 (06:32→21:30)
--- NOTE | 2022-02-20 07:42 | PM.PN.1 ---
Subjective Subjective Date Patient Seen: 02/20/22 Time Patient Seen: 07:42 Interval history: Patient seen and evaluated this morning said he had a good night. Has some urinary urgency using the bedpan as well as getting up to the bathroom. Did feel very lightheaded when he went to the bathroom. On a clear liquid diet. No further episodes of bright red blood per rectum. But he says he is concerned that can break loose any time talk to the general surgeon yesterday he says he he does not want to go through a preparation for a colonoscopy. Had a discussion today with him about his care wishes and plans and goals. Exam Vital Signs (past 8 hours): - 02/20/22 04:45 Temperature 98.9 F Pulse Rate 60 Respiratory Rate 16 Blood Pressure 129/55 L Pulse Oximetry 95 Oxygen Delivery Method Room Air Oxygen Flow Rate 0 Narrative Exam Narrative: Gen.: Patient is alert good historian. He is somewhat pale lying in bed. HEENT: Pupils equal round and reactive or mucosa is moist neck is supple Cardio: Regular rate and rhythm slight systolic murmur Respiratory: Normal respiratory effort no wheezes or crackles Abdomen: Soft nontender Extremities: Full range of motion no weakness no edema Objective Labs Result Diagrams: 02/20/22 04:45 02/20/22 04:45 Labs: Laboratory Results - last 24 hr 02/19/22 02/20/22 02/20/22 21:15 04:45 04:45 WBC 3.6 L RBC 3.09 L Hgb 8.9 L Hct 25.9 L MCV 83.8 MCH 28.7 MCHC 34.2 RDW 15.6 H Plt Count 297 Neut % (Auto) 28.9 L Lymph % (Auto) 54.7 H [place] % (Auto) 14.8 H Eos % (Auto) 1.1 L Baso % (Auto) 0.5 Neut # (Auto) 1100 L Lymph # (Auto) 2000 [place] # (Auto) 500 Eos # (Auto) 0 Baso # (Auto) 0 Sodium 139 Potassium 3.9 Chloride 106 Carbon Dioxide 27 BUN 13 Creatinine 0.93 Estimated GFR > 60 BUN/Creatinine Ratio 14.0 Glucose 89 Calcium 8.3 L Urine Color Yellow Urine Appearance Clear Urine pH 6.0 Ur Specific [place] 1.010 Urine Protein Negative Urine Glucose (UA) Negative Urine Ketones Negative Urine Occult Blood Negative Urine Nitrate Negative Urine Bilirubin Negative Urine Urobilinogen 0.2 Ur Leukocyte Esterase Negative Urine RBC None seen Urine WBC None seen Urine Bacteria None seen Ur Culture Indicated? 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) Pelvic somatic dysfunction Piriformis syndrome of left side Polymyalgia rheumatica Sacral region somatic dysfunction Shingles outbreak Small bowel obstruction Somatic dysfunction of lower extremity 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 Patient's hemoglobin hematocrit stable just a little bit above 8. Patient still pale and symptomatic. I think he would benefit from another 2 units of packed red blood cells because of his symptomatic anemia. Had a discussion with General surgery yesterday patient said he does not feel like he is strong enough to be able to do a colonoscopy prep. He is nervous about that and refused. Will discuss with General surgery about potential further evaluation as his blood is bright red. CT scan shows diverticulosis without acute diverticulitis no colonic masses. Acute blood loss anemia. Due to 1. Above. Patient had packed red blood cells of 2 units. Patient was still symptomatic getting up to the bathroom last night felt like he was lightheaded and passing out. Will go ahead and transfuse him again another 2 units of packed red blood cells. As if he has another bleeding episode he would most likely be in trouble. Left Renal cell carcinoma has been followed consistently by Urology since 2014. Last appointment here just a month or so weeks ago. Patient has elected at ongoing we not to have surgery. Which has been discussed consistently during his urological evaluation and follow-up since 2014. Please see ongoing urology consultation and notes in regards to this. Question whether not this may be contributing to some ongoing weakness. Recurrent small-bowel obstructions bilateral inguinal hernias. Continue to monitor. At this time no concern. Essential hypertension. Chronic and stable blood pressure is well controlled Mixed hyperlipidemia on atorvastatin continue with atorvastatin Post shingles neuralgia. Patient with gabapentin. Doing well at this point. BPH without current obstruction. Continue finasteride. Anxiety chronic. Continue home citalopram. Disposition and plan. Transfuse 2 additional packed red blood cell units. Discussed again with patient colonoscopy in preparation which she somewhat reluctant to do. Will have a discussion with General surgery to see if they have any other diet ideas for evaluation of his colon. Patient would consider having colon surgery if he needed it for bleeding. Patient is a DNR DNI. Time Spent With Patient Critical Care time: I spent a total of [] minutes of critical care time on this patient's care today; this time is exclusive of procedural time.
--- NOTE | 2022-02-20 09:08 | PM.CALLCOV.1 ---
Call Coverage Note Note Date of Patient Contact: 02/20/22 Time of Patient Contact: 09:08 Narrative of Care Provided: Patient remains undecided in regards to proceeding with colonoscopy. Please notify if willing to move forward.
[2022-02-20] MEDS: FINASTERIDE 5 MG TABLET PO (09:13)
[2022-02-20] MEDS: CITALOPRAM 10 MG TABLET 40 MG PO (09:13)
[2022-02-20] MEDS: PANTOPRAZOLE 40 MG VIAL IV ×2 (09:13→21:30)
[2022-02-20] MEDS: SODIUM CHLORIDE 0.9% FLUSH 10 ML IV ×2 (09:14→21:31)
--- NOTE | 2022-02-20 12:28 | PC.NURSE ---
Addendum entered by Kourtney Orourke R.N. 02/20/22 19:06: Patient started on his bowel prep and has been sitting on commode. He has had some loose brownish colored stool, with blood present, more brown at this time. He had a bloody crimson colored stool earlier that he was incontinent of. Addendum entered by Kourtney Orourke R.N. 02/20/22 13:47: Patient had a medium loose bloody stool in bed, cleaned up and back to bed. Given atenolol and iv lasix between each unit of blood and tolerated well, except patient is voiding frequently. He stated briefly that his stomach hurt around the time of his bowel movement and it seems to have resolved now. Bedding changed and warm blankets given. Resting comfortably. Original Note: Patient tolerating his first unit of PRBCs well, tolerating clear liquids well. O bowel movement at this time. Patient is peaked in color. VSS.
--- NOTE | 2022-02-20 12:40 | PC.NURSE ---
Pt is currently receiving one unit packed RBCs. He is tolerating clear liquids and has no reports of pain or nausea. Pt is voiding small amounts frequently, he is using his urinal independently and uses his call light appropriately to make his needs known.
[2022-02-20] MEDS: atenoloL 50 MG TABLET 100 MG PO (13:04)
[2022-02-20] MEDS: FUROSEMIDE 40 MG/4 ML VIAL 20 MG IV (13:05)
[2022-02-20] MEDS: PEG3350/SOD SULF,BICARB,CL/KCL 4,000 ML SOLUTION 2000 ML PO (16:45)
[2022-02-20] MEDS: ATORVASTATIN 20 MG TABLET 10 MG PO (21:30)
[2022-02-21] VITALS (13 sets, daily range): BP systolic 133–163; BP diastolic 65–94; PULSE 60–66; RESP 14–19; TEMP 36.6–37.2; O2SAT 93–98; BMI 23.8
--- NOTE | 2022-02-21 | PATH_ITS ---
[facility] Accession Number: [id number] . 01 Material submitted: . gastrointestinal site - STOMACH . 02 Diagnosis: Stomach, Biopsy: Antral and body-type mucosa with mild chronic gastritis. Negative for Helicobacter by immunohistochemistry. Negative for intestinal metaplasia. Negative for dysplasia and malignancy. MRV 02/27/2022 1454 Local . 02 Electronically signed: . Eveline Wang MD, Pathologist NPI- [id number] . 01 Gross description: . STOMACH: Received in formalin is 1 fragment(s) of quiñones, soft tissue measuring 0.2 x 0.1 x 0.1 cm submitted entirely in 1 cassette(s) /CPE 02/22/2022 0811 Local . 02 Microscopic: . An immunohistochemical stain is performed to evaluate for Helicobacter organisms and is negative. The control stain shows appropriate reactivity. . * This test was developed and its performance characteristics determined by [facility]. It has not been cleared or approved by the U.S. Food and Drug Administration. The FDA has determined that such clearance or approval is not necessary. This test is used for clinical purposes. It should not be regarded as investigational or for research. . 02 Pathologist provided ICD-10: K92.2 . 02 CPT . 573730, B46355 Specimen Comment: A courtesy copy of this report has been sent to [phone] Performed at: 01 [facility] [address], [place], [place] [id number] MD Hansel Fajardo MD Phone: [phone] Performed at: 02 [facility] [id number] [place], [place] [id number] MD Eveline Wang MD Phone: [phone]
[2022-02-21 05:31] LABS: Hematocrit 33.5 % (41-53); Hemoglobin 11.4 g/dL (13.5-17.5); Mean Corpuscular HGB Conc 34.1 % (30-36); Mean Corpuscular Hemoglobin 29.3 PG (26-34); Mean Corpuscular Volume 85.9 fL (80-100); Platelet Count 300 X10^3/uL (150-400); Red Cell Distribution Width 15.5 % (11.6-14.8); White Blood Cell Count 3.8 X10^3/uL (4.5-11.0)
[2022-02-21 05:33] LABS: Add Manual Diff / Slide Review YES
[2022-02-21 05:35] LABS: BUN Creatinine Ratio 14.6 (6-22); Blood Urea Nitrogen 14 mg/dL (9-20); Calcium 8.3 mg/dL (8.4-10.2); Carbon Dioxide 28 mmol/L (22-32); Chloride 103 mmol/L (98-107); Estimated Glomerular Filt Rate > 60 mL/min (>60); Glucose 87 mg/dL (80-110); HEMOLYSIS < 15 (0-50); Potassium 3.6 mmol/L (3.4-5.1); Sodium 140 mmol/L (137-145)
--- NOTE | 2022-02-21 06:23 | PC.NURSE ---
Pt continues to have dark brown/red stools despite taking golitely. Pt feels discouraged that his stool hasn't clear up yet. will continue to monitor.
[2022-02-21 07:16] LABS: Neutrophils Absolute Manual 1710 /uL (3000-5900); RBC Morphology Normal Morphology; Total Cells Counted 100
--- NOTE | 2022-02-21 08:40 | PM.PN.1 ---
Subjective Subjective Date Patient Seen: 02/21/22 Time Patient Seen: 08:40 Interval history: Patient seen and evaluated this morning. Said not such a good night. He agreed to the colonoscopy prep. He was NPO midnight. Looks like he has gone through half the bottle of GoLYTELY. He is not feeling as bad as he anticipated. Blood counts are much better after an additional 2 units of packed red blood cells. Big output of maroon-colored stool yesterday with abdominal cramping and pain. Not significant active bleeding during the prep from what I understand from him. Exam Vital Signs (past 8 hours): - 02/21/22 04:00 02/21/22 07:00 Temperature 98.5 F 97.9 F Pulse Rate 65 60 Respiratory Rate 18 18 Blood Pressure 152/83 H 139/71 Pulse Oximetry 95 95 Oxygen Delivery Method Room Air Oxygen Flow Rate 0 Narrative Exam Narrative: Gen.: Alert resting comfortably in bed color looks better HEENT: Pupils equal round and reactive or mucosa is dry neck is supple Cardio: S1-S2 regular rate and rhythm Respiratory: Normal respiratory effort no wheezes or crackles Abdomen: Soft nontender no rebound or guarding no distention Extremities: Warm dry perfused Objective Labs Result Diagrams: 02/21/22 04:36 02/21/22 04:36 Labs: Laboratory Results - last 24 hr 02/18/22 02/21/22 02/21/22 02:23 04:36 04:36 WBC 3.8 L RBC 3.90 L Hgb 11.4 L Hct 33.5 L MCV 85.9 MCH 29.3 MCHC 34.1 RDW 15.5 H Plt Count 300 Neut % (Auto) Not Reportable Lymph % (Auto) Not Reportable [place] % (Auto) Not Reportable Eos % (Auto) Not Reportable Baso % (Auto) Not Reportable Lymph # (Auto) Not Reportable [place] # (Auto) Not Reportable Baso # (Auto) Not Reportable Total Counted 100 Seg Neutrophils % 45.0 Lymphocytes % (Manual) 41.0 Atypical Lymphs % 8.0 H Monocytes % (Manual) 5.0 Eosinophils % (Manual) 1.0 L Neutrophils # (Manual) 1710 L RBC Morphology Normal morphology Sodium 140 Potassium 3.6 Chloride 103 Carbon Dioxide 28 BUN 14 Creatinine 0.96 Estimated GFR > 60 BUN/Creatinine Ratio 14.6 Glucose 87 Calcium 8.3 L Blood Type A Positive Antibody Screen Negative Crossmatch See Detail [facility] Medical History Acute metabolic encephalopathy Bilateral renal cysts BPH w urinary obs/LUTS Cataract Coronary artery disease 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 Gait instability Gout Greater trochanteric bursitis of left hip Hemorrhoids Herniated nucleus pulposus, L5-S1, left History of small bowel obstruction Hyperlipidemia Hypertension Iliotibial band syndrome, left leg Myocardial infarction 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) Pelvic somatic dysfunction Piriformis syndrome of left side Polymyalgia rheumatica Sacral region somatic dysfunction Shingles outbreak Small bowel obstruction Somatic dysfunction of lower extremity 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 Colonoscopy prep done last evening. Hopefully upper and lower endoscopy today for further evaluation of bleeding source. Continue with twice a day proton pump inhibitor. Presumed bleeding from lower source possibly diverticular. Significant to high volume room colored stool yesterday afternoon with crampy pain. Did okay with the prep last night had some red stool output. He says he feels fine this morning not hungry. Acute blood loss anemia due to gastrointestinal bleed. Hemoglobin hematocrit stable. Continue to monitor. BPH. Patient with out acute obstruction at this point. Lots of urinary frequency and urgency. Left renal cell carcinoma. Chronic stable since 2014 being followed regularly by Urology. PET-CT scan was ordered by over weekend physician will hold off on that at this point as he has just seen his kidney specialist. Essential hypertension blood pressure stable today. Continue to monitor Hyperlipidemia continue with his statin medication. Post shingles neuralgia. Doing well. Not a lot of significant pain at this point. Disposition and plan. Gastrointestinal evaluation today hopefully with upper and lower endoscopies to see and understand better his source of significant blood volume loss. Time Spent With Patient Critical Care time: I spent a total of [] minutes of critical care time on this patient's care today; this time is exclusive of procedural time.
[2022-02-21] MEDS: atenoloL 50 MG TABLET 100 MG PO (10:09)
[2022-02-21] MEDS: PANTOPRAZOLE 40 MG VIAL IV ×2 (10:10→22:22)
[2022-02-21] MEDS: SODIUM CHLORIDE 0.9% FLUSH 10 ML IV ×2 (10:22→22:22)
--- NOTE | 2022-02-21 12:22 | PC.NURSE ---
Addendum entered by Kourtney Orourke R.N. 02/21/22 17:43: Patient back from having his colonoscopy. He is alert and oriented x3, voices no complaints of discomfort. ENVIRONMENTAL STUDIES DEPARTMENT CHAIR states that they did take some biopsy. Patient is going to be on a trial of clear liquids. Original Note: Assess- Patient slept in till 1000am, then in to visit. He denies pain or discomfort. Patient has not had any stools since start of shift at 0700. Given only Atenolol and protonix until after patient has his procedure. Resting comfortably and remains NPO.
[2022-02-21 14:03] LABS: COVID19 -Nasal RAPID Negative (Negative)
--- NOTE | 2022-02-21 14:55 | PM.PREOP ---
Pre-operative Note Interval Note History & Physical reviewed/Exam performed by Physician: Yes Changes to H&P: No
[2022-02-21] MEDS: LACTATED RINGERS 1,000 ML 42 ML IV (15:13)
[2022-02-21] MEDS: MIDAZOLAM 5 MG/5 ML VIAL IV (15:36)
[2022-02-21] MEDS: fentaNYL 250 MCG/5 ML INJ IV (15:36)
--- NOTE | 2022-02-21 15:56 | PM.OP.EC ---
Operative Date/Time/Diagnoses Date of procedure: 02/21/22 Time of procedure: 15:56 Pre-op diagnosis: GI bleed Post-op diagnosis: same Procedure & Clinicians Study performed: Esophagoduodenoscopy and colonoscopy Same procedure as scheduled: Yes Indications: GI bleed Surgeon: Brett Gauthier Procedure Notes Procedure in detail: Medications: Conscious sedation using 4mg IV midazolam and 100mcg IV of fentanyl The history and physical was performed/updated and the patient is ASA class is 3 . The procedure was discussed in detail with the patient. Potential risks complications including infection, bleeding, missed diagnosis, perforation, need for surgery, and were explained. Their questions were answered and informed consent was obtained. Patient placed in left lateral decubitus position. Time out was performed. Procedural sedation was administered with Versed and Fentanyl. A bite block was placed. the scope was inserted into the mouth and advanced through the esophagus and into the stomach. Stomach was notable for mild gastritis and clots of blood. There was no active hemorrhage or ulcer. Pylorus was intubated and the duodenum was normal to the 2nd portion. The scope was retroflexed within the stomach and there was a moderate size hiatal hernia. The scope was withdrawn into the esophagus the Z line was seen at 40 cm from the incisions. There was no Patel's esophagitis or masses or strictures. Stomach was desufflated and scope removed. Patient tolerated procedure well. Examination began with a thorough inspection of the perianal area there was no evidence of fissures, fistulae, external hemorrhoids or cutaneous malignancy. The colonoscopy scope was then placed into the anal canal and was advanced to the cecum, which was identified by the ileocecal valve, the appendiceal orifice and the confluence of the taenia. The scope was then slowly withdrawn examining colon thoroughly in all directions, irrigating it of any residual stool. FINDINGS 1. Gastritis 2. Extensive [place] diverticulosis 3. Grade 2 internal hemorrhoid The patient tolerated the procedure well. They will be discharged once criteria are met. The prep was of poor quality. The withdrawl time was 9 minutes. The sedation time was 25 minutes. Specimen(s): other (Gastric biopsy) Impression: Gastritis Post-procedure Plan for aftercare: Return to [facility] for diet PPI Disposition: Acute Care
--- NOTE | 2022-02-21 16:48 | PC.NURSE ---
Pt has just returned from colonoscopy (1640). He states that he is feeling well and he tolerated the procedure better than he thought he would. SCDs have been reapplied, vital signs are stable. Pt is resting in bed now.
[2022-02-21] MEDS: CITALOPRAM 10 MG TABLET 40 MG PO (17:14)
[2022-02-21] MEDS: FINASTERIDE 5 MG TABLET PO (17:14)
[2022-02-21] MEDS: ATORVASTATIN 20 MG TABLET 10 MG PO (22:21)
[2022-02-21] MEDS: ACETAMINOPHEN 325 MG TABLET 650 MG PO (22:21)
[2022-02-22] VITALS (7 sets, daily range): BP systolic 121–143; BP diastolic 71–76; PULSE 58–67; RESP 16–18; TEMP 36.6–37.2; O2SAT 95–97
[2022-02-22] MEDS: ACETAMINOPHEN 325 MG TABLET 650 MG PO (04:50)
[2022-02-22 04:59] LABS: BUN Creatinine Ratio 14.9 (6-22); Blood Urea Nitrogen 13 mg/dL (9-20); Calcium 8.3 mg/dL (8.4-10.2); Carbon Dioxide 25 mmol/L (22-32); Chloride 103 mmol/L (98-107); Estimated Glomerular Filt Rate > 60 mL/min (>60); Glucose 81 mg/dL (80-110); HEMOLYSIS < 15 (0-50); Potassium 3.4 mmol/L (3.4-5.1); Sodium 136 mmol/L (137-145)
[2022-02-22 05:07] LABS: Hemoglobin 11.4 g/dL (13.5-17.5); Mean Corpuscular HGB Conc 34.6 % (30-36); Mean Corpuscular Hemoglobin 29.5 PG (26-34); Mean Corpuscular Volume 85.3 fL (80-100); Platelet Count 285 X10^3/uL (150-400); Red Blood Cell Count 3.87 X10^6/uL (4.5-5.9); Red Cell Distribution Width 16.2 % (11.6-14.8); White Blood Cell Count 3.7 X10^3/uL (4.5-11.0)
[2022-02-22 05:09] LABS: Add Manual Diff / Slide Review YES
[2022-02-22 05:29] LABS: Neutrophils Absolute Manual 1184 /uL (3000-5900); Total Cells Counted 100
[2022-02-22 05:35] LABS: RBC Morphology Normal Morphology
--- NOTE | 2022-02-22 09:33 | P.PN_ITS ---
Subjective Subjective Date Patient Seen: 02/22/22 Time Patient Seen: 09:33 Interval history: Patient seen and evaluated this morning resting in bed says he is tired. Has not had much since procedure yesterday. General diet is ordered. Up ambulating with a little bit of assistance. Needs a PT eval. Reviewed findings colonoscopy an EGD with patient. Discussed findings also with his . I did review report from the surgeon. Exam Vital Signs (past 8 hours): - 02/22/22 04:00 02/22/22 08:55 Temperature 98.9 F Pulse Rate 58 L 58 L Respiratory Rate 18 18 Blood Pressure 143/71 H Pulse Oximetry 97 Oxygen Delivery Method Room Air Oxygen Flow Rate 0 Narrative Exam Narrative: Gen.: Patient is alert lying comfortably in bed HEENT: Pupils equal round and reactive improvement of pallor or mucosa is moist neck is supple Cardio: S1-S2 regular rate and rhythm systolic murmur present Respiratory: Normal respiratory effort Abdomen: Soft nontender no rebound no guarding Extremities: Warm dry perfused no edema Objective Labs Result Diagrams: 02/22/22 04:24 02/22/22 04:24 Labs: Laboratory Results - last 24 hr 02/21/22 02/22/22 02/22/22 13:16 04:24 04:24 WBC 3.7 L RBC 3.87 L Hgb 11.4 L Hct 33.0 L MCV 85.3 MCH 29.5 MCHC 34.6 RDW 16.2 H Plt Count 285 Neut % (Auto) Not Reportable Lymph % (Auto) Not Reportable [place] % (Auto) Not Reportable Eos % (Auto) Not Reportable Baso % (Auto) Not Reportable Lymph # (Auto) Not Reportable [place] # (Auto) Not Reportable Baso # (Auto) Not Reportable Total Counted 100 Seg Neutrophils % 32.0 L Lymphocytes % (Manual) 51.0 H Atypical Lymphs % 4.0 H Monocytes % (Manual) 12.0 H Eosinophils % (Manual) 1.0 L Neutrophils # (Manual) 1184 L RBC Morphology Normal morphology Sodium 136 L Potassium 3.4 Chloride 103 Carbon Dioxide 25 BUN 13 Creatinine 0.87 Estimated GFR > 60 BUN/Creatinine Ratio 14.9 Glucose 81 Calcium 8.3 L SARS-CoV-2 (PCR) Negative [facility] Medical History Acute metabolic encephalopathy Bilateral renal cysts BPH w urinary obs/LUTS Cataract Coronary artery disease 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 Gait instability Gout Greater trochanteric bursitis of left hip Hemorrhoids Herniated nucleus pulposus, L5-S1, left History of small bowel obstruction Hyperlipidemia Hypertension Iliotibial band syndrome, left leg Myocardial infarction 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) Pelvic somatic dysfunction Piriformis syndrome of left side Polymyalgia rheumatica Sacral region somatic dysfunction Shingles outbreak Small bowel obstruction Somatic dysfunction of lower extremity 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 Hemoglobin hematocrit stable this morning. Endoscopy performed yesterday. Surgeons found gastritis with blood clot in stomach question upper source of bleeding. Although no visualized ulcer or lesion. Lower source multiple diverticuli without acute bleeding found. Patient will be continued on IV proton pump inhibitor 40 mg twice daily. He will need to be discharged on twice daily proton pump inhibitor. H pylori testing will be ordered. Acute blood loss anemia requiring transfusion of packed red blood cells hemoglobin hematocrit stable BPH. Patient with urination frequency. No signs of obstruction. Continue with home medication Left renal cell carcinoma. Being followed outpatient with Urology. Hypertension blood pressure is a little bit high but stable currently on atenolol. Hyperlipidemia Disposition and plan. Advanced diet. PT OT evaluation discharge home tomorrow. H pylori testing. Time Spent With Patient Critical Care time: I spent a total of [] minutes of critical care time on this patient's care today; this time is exclusive of procedural time.
[2022-02-22] MEDS: FINASTERIDE 5 MG TABLET PO (09:46)
[2022-02-22] MEDS: PANTOPRAZOLE 40 MG VIAL IV ×2 (09:46→20:08)
[2022-02-22] MEDS: CITALOPRAM 10 MG TABLET 40 MG PO (09:46)
[2022-02-22] MEDS: SODIUM CHLORIDE 0.9% FLUSH 10 ML IV ×2 (09:47→20:09)
[2022-02-22] MEDS: atenoloL 50 MG TABLET 100 MG PO (10:05)
--- NOTE | 2022-02-22 13:45 | PT.IIE ---
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 Gait instability Gout Greater trochanteric bursitis of left hip Hemorrhoids Herniated nucleus pulposus, L5-S1, left History of small bowel obstruction Hyperlipidemia Hypertension Iliotibial band syndrome, left leg Myocardial infarction 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) Pelvic somatic dysfunction Piriformis syndrome of left side Polymyalgia rheumatica Sacral region somatic dysfunction Shingles outbreak Small bowel obstruction Somatic dysfunction of lower extremity 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) Trigeminal neuralgia Zoster Physical Therapy Inpatient Evaluation/Re-Eval M1 PT/OT-IP Prior Functional Status Start: 02/22/22 15:10 Freq: NEEDED Status: Active Protocol: Document 02/22/22 13:45 AB (Rec: 02/22/22 15:25 AB [id number]) Medical Review Prior Functional Status Medical History Reviewed Yes Communication able to make needs known; pt is [place] Mobility and Gait pt stated that he is modified independent with all mobilities and ambulation without AD indoors but tends to furniture cruise; occasionally uses a FWW; spouse stated that pt should be using a FWW at all times but pt does not do so; stated that he does not go out of the house Social History Household Members spouse Living Arrangements House Number of Floors (Floors) Two Floors Number of Stairs To Enter/Railing? pt stays on main level of the house 4 steps B rails from the garage to enter the house Home Environment High Toilet Home Equipment Front Wheel Walker,Four Wheel Walker,Shower Seat with Backrest,Hand Held Shower,Grab Bars Near Toilet,Grab Bars In Shower M2 PT-IP Current Condition Start: 02/22/22 15:10 Freq: NEEDED Status: Active Protocol: Document 02/22/22 13:45 AB (Rec: 02/22/22 15:25 AB [email or web address]) Physical Therapy Current Condition Current Condition Evaluation Date 02/22/22 Treatment Diagnosis GI Bleed; difficulty in walking Onset Date 02/18/22 M3 PT-IP Subjective Start: 02/22/22 15:10 Freq: NEEDED Status: Active Protocol: Document 02/22/22 13:45 AB (Rec: 02/22/22 15:25 AB [email or web address]) Subjective Physical Therapy Visit Type Type Initial Evaluation Visit Start Time 13:45 Visit Stop Time 14:45 Total Visit Minutes 60 Number of SAFETY ENGINEER PRESSURE VESSELS Visits 0 Physical Therapy Visit Comments Patient Comments pt is agreeable to do PT Therapy Pain Assessment Pain Present Pain Present Denied Pain M4 PT-IP Mobility and Gait Start: 02/22/22 15:10 Freq: NEEDED Status: Active Protocol: Document 02/22/22 13:45 AB (Rec: 02/22/22 15:25 AB [email or web address]) PT-Bed Mobility Assessment Supine to Sit Supine to Sit Standby Assistance PT-Transfer Assessment Sit to and From Stand Sit to and from Stand Contact Guard Assistance,1 Person Assistance Equipment Transfer Assistive Device Gait Belt,Front Wheeled Walker Orthotic/Prosthetic Devices or Brace: No Transfers Transfer Technique ambulated Transfer Ability Level of Assist Contact Guard Assistance, Minimal Assistance,1 Person Assistance,Use of Upper Extremities Comments Mobility Comments pt agreeable to do PT. spouse in room. pt and spouse stated that pt might go home today. BP ins upine: 146/76. pt completed supine to sit SBA. able to sit on EOB SBA. BP in sittin/80. pt completed sit to stand min A and ambulated in room using FWW CGA ~ 10 ft. pt sat on the chair. BP checked: 148/84 . caregiver training conducted. educated spouse on use of gait belt and how to assist pt. spouse was able to put gait belt on pt. assisted pt with sit to stand from the chair CGA and ambulated pt in the hallway SBA to CGA using FWW. educated pt and spouse on stair climbing. pt completed up/down stairs using B rails CGA. pt c/o feeling tired and assisted back to his room. ambulated from w/c to chair CGA using FWW. pt agreed to sit up on chair. positioned on the chair. call light and table placed within reach. pt c/o feeling oozy. BP checked in sittin/75. informed nurse. educated pt on safety and use of FWW at this time for safety and pt agreed. Gait Assessment Gait Gait Assistance Required: Standby Assistance,Contact Guard Assist Distance (Feet) 50 Able to Maintain Weight Bearing Status Yes During Gait Assistive Devices Assistive Device Gait Belt,Front Wheeled Walker Orthotic/Prosthetic Devices or Brace: No Gait Deviations General Gait Pattern Decreased Stride Length, Decreased Feet Clearance, Narrow Based Gait Factors Limiting Gait Function Factors Limiting Gait Function Decreased Activity Tolerance, Decreased Strength,Limited Range of Motion,Poor Balance, Poor Safety Awareness, Respiratory Distress Stair Climbing Assessment Evaluation Level of Assist On Stairs Contact Guard Assistance Devices Stair Climbing Assistive Devices Left Railing,Right Railing Technique/Endurance Stair Climbing Direction Ascend and Descend Stair Climbing Technique Step to Step Number of Steps Climbed 3 Query Text: Stair Climbing Set # Repetitions (reps) 1 PT-Balance Assessment Sitting Balance and Reactions Static Sitting Balance Ability Good Dynamic Sitting Balance Ability Good Standing Balance and Reactions Static Standing Balance Ability Fair Dynamic Standing Balance Ability Fair Device Used FWW M5 PT-IP Objective Assessments Start: 02/22/22 15:10 Freq: NEEDED Status: Active Protocol: Document 02/22/22 13:45 AB (Rec: 02/22/22 15:25 [email or web address]) Orientation Orientation/Cognition Level of Alertness Alert Orientation Name Language Function Ability Hard of Hearing Safety Awareness Decreased Safety Awareness Memory Description No Deficits Noted Gross Range of Motion Lower Extremity ROM Assessment Within Functional Limits Strength Lower Extremity Strength Assessment Within Functional Limits Coordination Assessment Gross Coordination Gross Coordination WNL Muscle Tone Muscle Tone WNL Yes M6 PT-IP Treatment Start: 02/22/22 15:10 Freq: NEEDED Status: Active Protocol: Document 02/22/22 13:45 AB (Rec: 02/22/22 15:25 AB [email or web address]) Physical Therapy Treatment Education Education Provided Safety M7 PT-IP Assessment and Plan Start: 02/22/22 15:10 Freq: NEEDED Status: Active Protocol: Document 02/22/22 13:45 AB (Rec: 02/22/22 15:25 [email or web address]) PT Summary Assessment and Plan Potential Rehabilitation Potential Fair Status of Condition at Evaluation Evolving Summary Impairments Pain,ROM,Strength,Balance, Coordination,Sensation,Tone, Cognition,Bed Mobility, Transfers,Gait,Activity Tolerance Assessment Summary pt requiring SBA to CGA with ambulation using FWW but has decrease activity tolerance needing increase rest breaks in between tasks. pt c/o fatigue at the end of PT session. pt plans to go home with spouse to assist him. caregiver training conducted but unable to do hands on stair training due to pt c/o fatigue and unable to do further activities. pt will require HHPT to improve overall strength and activity tolerance to improve functional independence. Goals Bed Mobility Goal Independent Transfer Goal Independent,Front Wheeled Walker Gait Goal Independent,Front Wheel Walker Gait Distance 200 Other Goals improve ambulation without AD 150 ft mod I up/down 4 steps B rails mod I Days to Meet Goals 5 Frequency of Treatment Frequency Of Treatment Once a Day Treatment Plan Physical Therapy Treatment Plan Bed Mobility Training,Transfer Training,Gait Training, Therapeutic Exercise,Balance Retraining,Discharge Planning, Hot or Cold Pack,Neuromuscular Re-ed,Coordination Retraining Recommendations To Nursing Amount of Assist Needed 1 Person Assist Discharge Recommendations PT Discharge Recommendations Home with Assistance,Home Health Transportation Needs at Discharge Private Vehicle,Wheelchair/ Cabulance
--- NOTE | 2022-02-22 15:44 | CM.DPC ---
DCP Cont: Per MD, pt making some improvement and Surgeon recommendations and PT ordered and possible d/c home tomorrow. Per PT, spouse was bedside and participated in CG training and still could benefit from further stairs when less fatigued and recommending home with spouse assist and HH. SW unable to meet bedside today with pt/spouse to discuss HH due to triage needs and training but will meet bedside in the AM to determine if they are agreeable to HH prior to d/c. Plan: SW to follow closely for discussion with pt and spouse to determine if HH needed at discharge vs outpt. Estefania Matias MSW
[2022-02-22] MEDS: ATORVASTATIN 20 MG TABLET 10 MG PO (20:09)
[2022-02-23] VITALS: BP 128/62; PULSE 60; RESP 18; TEMP 36.7; O2SAT 95
[2022-02-23 05:45] VITALS: BP 128/62; PULSE 62; RESP 18; TEMP 36.6; O2SAT 95
--- NOTE | 2022-02-23 06:57 | P.DS_ITS ---
History of Present Illness History of Present Illness Chief complaint: GI Bleed Discharge Providers Provider Date of admission: 02/18/22 02:42 Discharge Date: 02/23/22 Primary care physician: Samson Perez MD Consults: 02/18/22 09:55 Consult to Discharge Planning Routine Comment: 02/18/22 13:45 Consult to General Surgery Routine Comment: Consulting Provider: Brett Gauthier Reason for consultation: GI bleed Has provider been notified: Yes 02/22/22 09:32 Consult to Physical Therapy Evaluate & Treat Comment: Physician Instructions: Evaluate and Treat Discharge provider: Samson Perez MD Summary Hospital Course Discharge Diagnosis: Acute gastrointestinal bleed. Patient was admitted the hospital with gastrointestinal bleeding. Patient was found to have a significantly low hemoglobin hematocrit required blood transfusion x4 units. During the hospital stay he had evaluation with a CT scan which showed colonic diverticuli no masses. Patient was initially reluctant to undergo endoscopic procedures for evaluation of his bleeding. Patient ultimately had an EGD and a colonoscopy. Colonoscopy showed multiple diverticuli no acute source of bleeding. Upper endoscopy showed gastritis and blood clot in the stomach. Bleeding was presumed for up from an upper intestinal source. Patient had H pylori testing which is pending at the time of this dictation. Patient will be discharged home with that twice a day proton pump inhibitor Acute blood loss anemia. Patient was transfused 4 units of packed red blood cells during his hospital stay. Patient at the time of discharge that he would hemoglobin hematocrit was stable. BPH without obstruction. Patient had ongoing BPH symptoms. He was able to urinate without obstruction he was continued on his finasteride Hypertension. But patient here with labile. He was not significantly hypot ensive or hypertensive he was continued on his atenolol 50 mg a day. Hyperlipidemia was continued you will be maintained on atorvastatin 10 mg a day Status at Discharge Cognitive/behavioral status at discharge: oriented Functional status at discharge: independent ambulation Overall status at discharge: patient is back to baseline Time Spent with Patient Time spent: Less than 30 minutes Exam Vital Signs (past 8 hours): - 02/23/22 00:00 02/23/22 05:45 Temperature 98.0 F 97.9 F Pulse Rate 60 62 Respiratory Rate 18 18 Blood Pressure 128/62 128/62 Pulse Oximetry 95 95 Oxygen Delivery Method Nasal Cannula Oxygen Flow Rate 0 Objective Labs Result Diagrams: 02/22/22 04:24 02/22/22 04:24 PFSH Medical History Acute metabolic encephalopathy Bilateral renal cysts BPH w urinary obs/LUTS Cataract Coronary artery disease 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 Gait instability Gout Greater trochanteric bursitis of left hip Hemorrhoids Herniated nucleus pulposus, L5-S1, left History of small bowel obstruction Hyperlipidemia Hypertension Iliotibial band syndrome, left leg Myocardial infarction 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) Pelvic somatic dysfunction Piriformis syndrome of left side Polymyalgia rheumatica Sacral region somatic dysfunction Shingles outbreak Small bowel obstruction Somatic dysfunction of lower extremity 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) Trigeminal neuralgia Zoster Surgical History H/O prostate biopsy H/O total cystectomy History of angioplasty (2001) History of gastrointestinal surgery Hx of inguinal hernia surgery Status post cholecystectomy Family History Father Macular degeneration Sister Hypertension Social History marital status: number of children: 0 household members: spouse Smoking Status: Never smoker alcohol intake: current substance use type: does not use caffeine: Yes Discharge Plan Discharge Plan Patient Disposition: Home Discharge orders & Medications Prescriptions: New pantoprazole [Protonix] 40 mg tablet,delayed release (DR/EC) 40 mg PO BID Qty: 60 1RF Continued VITAMIN D (Vitamin D3) 1,000 unit PO QDAY Qty: 0 0RF citalopram 40 mg tablet 40 mg PO DAILY Qty: 90 3RF finasteride 5 mg tablet 5 mg PO DAILY Qty: 90 3RF atenolol 50 mg tablet 100 mg PO DAILY Qty: 180 3RF atorvastatin 10 mg tablet 10 mg PO DAILY Qty: 90 1RF Follow up/Referrals: Samson Perez MD [Primary Care Provider] - Discharge Data Primary Care Provider: Samson Perez
[2022-02-23 07:39] LABS: Add Manual Diff / Slide Review NO; Basophils Absolute Auto 0 /uL (0-100); Basophils Percent Auto 0.6 % (0-2); Eosinophils Absolute Auto 0 /uL (0-450); Eosinophils Percent Auto 0.8 % (2-4); Hematocrit 32.2 % (41-53); Hemoglobin 11.2 g/dL (13.5-17.5); Lymphocytes Absolute Auto 1700 /uL (1100-4500); Mean Corpuscular HGB Conc 34.8 % (30-36); Mean Corpuscular Volume 86.1 fL (80-100); Monocytes Absolute Auto 800 /uL (0-900); Monocytes Percent Auto 19.4 % (3-14); Neutrophils Absolute Auto 1500 /uL (1500-7000); Neutrophils Percent Auto 37.2 % (50-75); Platelet Count 287 X10^3/uL (150-400); Red Blood Cell Count 3.74 X10^6/uL (4.5-5.9)
[2022-02-23 07:48] LABS: BUN Creatinine Ratio 11.4 (6-22); Blood Urea Nitrogen 10 mg/dL (9-20); Calcium 8.3 mg/dL (8.4-10.2); Carbon Dioxide 26 mmol/L (22-32); Chloride 103 mmol/L (98-107); Estimated Glomerular Filt Rate > 60 mL/min (>60); Glucose 94 mg/dL (80-110); HEMOLYSIS < 15 (0-50); Potassium 3.2 mmol/L (3.4-5.1); Sodium 137 mmol/L (137-145)
[2022-02-23 09:10] VITALS: BP 128/70; PULSE 65; RESP 18; TEMP 36.8; O2SAT 96
[2022-02-23] MEDS: CITALOPRAM 10 MG TABLET 40 MG PO (09:19)
[2022-02-23] MEDS: atenoloL 50 MG TABLET 100 MG PO (09:19)
[2022-02-23] MEDS: FINASTERIDE 5 MG TABLET PO (09:19)
[2022-02-23] MEDS: PANTOPRAZOLE 40 MG VIAL IV (09:20)
[2022-02-23] MEDS: SODIUM CHLORIDE 0.9% FLUSH 10 ML IV (09:20)
--- NOTE | 2022-02-23 10:36 | CM.DPC ---
Addendum entered by MAC Haney 02/23/22 14:19: ADD: Dr. Perez signed F2F for HH and CC Erika kindly obtained and SW faxed signed F2F and MD orders to [facility] to review. Per RN, pt was given d/c instructions with spouse bedside and taken down to spouse POV for transport home before lunchtime. BF Original Note: DCP Discharge Home with HH Per MD, pt is medically stable to d/c home with spouse today and no identified barriers to discharge. Per PT, pt ambulated well and completed stairs and recommending home with spouse assist and HH. SW met bedside with pt and explained role and pt confirms MD discussed discharge today and spouse should arrive bedside shortly to be present for d/c instructions and SW inquired about HH recommendation and pt agreeable and feels HH needed and confirms he has a hx of HH with [facility] in [facility] past and would like [facility] again and requested SW call his spouse via room phone. SW called spouse Haily and updated on discharge and HH and she confirms she can provide transport today and would like [facility] as well and MD already sent pt's medications to [facility] [place] pharmacy to be filled and spouse very appreciative. SW called [facility] with new referral and efaxed clinicals to review and called Dr. Perez's office and spoke to his RN who confirms Dr. Perez is seeing pt's all day and they will help make sure he signs F2F for HH between pts and CC Erika kindly walking F2F over as the clinic no longer has their own fax machine. Plan: SW to follow for Dr. Perez signature on F2F and then will fax F2F and MD orders for HH to [facility] for pt discharge home today via spouse POV. MAC Haney
--- NOTE | 2022-02-23 11:23 | PC.NURSE ---
Day shift: Paperwork signed and all questions answered. Spouse in room for d/c teachings. Pt has all personal belongings. Taken to car via WC by DI Mclaughlin. Pt's spouse is driving him home.
--- NOTE | 2022-02-23 12:30 | PC.NURSE ---
Day shift: Pt left unit at approx 1230. See other note also.
== END 2022-02-23 12:31 | disposition home health service (06) | DRG 378 ==
LOC: ED 02:41 → AC 02:44
PROVIDERS: Surgery; Admitting Provider Student in an Organized Health Care Education/Training Program; Emergency Provider Emergency Medicine; PCP Family Medicine; Referring Provider Emergency Medicine; Visit Provider Family Medicine
PROC: 0DJD8ZZ Inspection of Lower Intestinal Tract, Via Natural or Artificial Opening Endoscopic (ICD-10-PCS; CPT 45378; principal; 2022-02-21 15:15)
PROC: 0DJ08ZZ Inspection of Upper Intestinal Tract, Via Natural or Artificial Opening Endoscopic (ICD-10-PCS; CPT 43235; 2022-02-21 15:15)
DX: K29.71 Gastritis, unspecified, with bleeding (principal); B02.29 Other postherpetic nervous system involvement; D62 Acute posthemorrhagic anemia; C64.2 Malignant neoplasm of left kidney, except renal pelvis; I10 Essential (primary) hypertension; E78.5 Hyperlipidemia, unspecified; N40.1 Benign prostatic hyperplasia with lower urinary tract symptoms; F41.9 Anxiety disorder, unspecified; R39.15 Urgency of urination; R35.0 Frequency of micturition; K57.90 Diverticulosis of intestine, part unspecified, without perforation or abscess without bleeding; K64.1 Second degree hemorrhoids; Z20.822 Contact with and (suspected) exposure to COVID-19; Z66 Do not resuscitate; R19.7 Diarrhea, unspecified; R53.1 Weakness
CPT/HCPCS: 36415; 36430; 43235; 45378; 71045; 74177; 80048; 80053; 81001; 82550; 82962; 83690; 83735; 84484; 85007; 85014; 85018; 85025; 85610; 86850; 86900; 86901; 87635; 93005; 94760; 94762; 96360; 96361; 96374; 96375; 96376; 97162; 97530; 99152; 99153; 99232; 99284; C9803; P9016; C9113; J1940; J2250; J2405; J3010; Q9967

== ENCOUNTER → 2022-03-15 14:10 | Outpatient (CLI) | payer MEDICARE, SELFPAY ==
[2022-02-18 12:02] VITALS: BMI 23.8
[2022-03-15 15:35] LABS: Hematocrit 35.6 % (41-53); Hemoglobin 12.2 g/dL (13.5-17.5)
== END ==
PROVIDERS: Physician Assistant; PCP Family Medicine; Referring Provider Family Medicine; Visit Provider Family Medicine
DX: D62 Acute posthemorrhagic anemia (principal)
CPT/HCPCS: 36415; 85014; 85018

== ENCOUNTER → 2022-03-30 12:48 | Outpatient (CLI) | payer MEDICARE, SELFPAY ==
[2022-02-18 12:02] VITALS: BMI 23.8
--- NOTE | 2022-03-30 12:59 | DIET.CONS ---
Dietary Consultation Note Assessment: 86y M and spouse, Haily, attending RD visit for help with nutrition advice for pt experiencing unintentional weight loss, whitney diverticulosis, and recent hemorrhagic ulcer requiring blood transfusion. Pt spouse requests list of 5 things he can eat to support health conditions and any items that should be avoided. Recent colonoscopy shows whitney diverticulitis and internal hemorrhoids, ulcer 1mo ago which bled profusely including bloody emesis. Pt on PPI, doesn't seem to have lingering sx of ulcer though comes in with considerable fear of eating. Pt and spouse confused on what pt can and cannot eat. Pt somewhat picky eater, very little consumption F/V, no salads. Pt likes cottage cheese, grilled cheese, hamburger patties, spaghetti, chicken, apple sauce, apple fritters. Pt drinking 1-2 Boost High Protein per day. Per recent labs, pt hgb 12.2 borderline low but much higher than 7.0 after his ulcer. BMI: 23.8 Last BM: Pt takes stool softener daily, gets worried if he goes 2 days without BM Nutrition Diagnosis: inadequate fiber intake r/t nutrition related knowledge deficit, fear of eating to aggravate sx aeb pt avoiding spices, nearly all F/V for fear of diverticular attack, food recall showing <10g fiber/d with whitney diverticulosis and internal hemorrhoids. Interventions: 1. Educated pt and spouse on MNT for ulcers. Pt should be healed now it has been 5w and continues PPI with no sx burning with PO intake or drop in hgb. Recc pt continue to moderate spicy, greasy items, and large portion sizes. 2. Educated pt and spouse on importance of soluble fiber for healthy bowel habits. Pt enjoys beans but hasn't been eating them recently. Pt takes metamucil intermittently. Pt likes raisin bran cereal and bran muffins, green peas, baked potatoes, sweet potatoes. Collaborated c pt and spouse on ways to incorporate these foods into daily routine. 3. Discussed importance of protein for strength and weight maintenance. Reinforced pts use of ONS Boost as well as protein coming from beans. EER: 20-25g Fiber daily, 75g PRO daily Monitoring/Evaluations: f/u prn Electronically Signed by: Claudette Hurley 03/30/22 12:59 Clinical Dietitian [address] [id number]
== END ==
PROVIDERS: PCP Family Medicine; Referring Provider Family Medicine; Visit Provider Family Medicine
DX: R63.4 Abnormal weight loss (principal); K57.92 Diverticulitis of intestine, part unspecified, without perforation or abscess without bleeding; K64.8 Other hemorrhoids; Z68.23 Body mass index [BMI] 23.0-23.9, adult; Z71.3 Dietary counseling and surveillance
CPT/HCPCS: 97802

== ENCOUNTER 2022-09-06 21:52 | Inpatient (IN) | payer MEDICARE, SELFPAY ==
[2022-02-18 12:02] VITALS: BMI 23.8
[2022-09-06] VITALS (7 sets, daily range): BP systolic 124–169; BP diastolic 58–82; PULSE 89–104; RESP 20–30; TEMP 36.7; O2SAT 87–96; BMI 24.3
[2022-09-06 22:28] LABS: Hematocrit 38.9 % (41-53); Hemoglobin 12.7 g/dL (13.5-17.5); Mean Corpuscular HGB Conc 32.6 % (30-36); Mean Corpuscular Hemoglobin 27.9 PG (26-34); Mean Corpuscular Volume 85.5 fL (80-100); Platelet Count 275 X10^3/uL (150-400); Red Blood Cell Count 4.55 X10^6/uL (4.5-5.9); Red Cell Distribution Width 14.3 % (11.6-14.8); White Blood Cell Count 14.1 X10^3/uL (4.5-11.0)
[2022-09-06] MEDS: ONDANSETRON 4 MG/2 ML INJ IV (22:28)
[2022-09-06] MEDS: SODIUM CHLORIDE 0.9% 1,000 ML 1000 ML IV (22:28)
[2022-09-06 22:30] LABS: Alanine Aminotransferase 21 IU/L (<50); Albumin 4.6 g/dL (3.5-5.0); Albumin Globulin Ratio 1.2 (1.0-2.8); Alkaline Phosphatase 108 U/L (38-126); Aspartate Aminotransferase 31 IU/L (17-59); BUN Creatinine Ratio 19.8 (6-22); Bilirubin Total 0.6 mg/dL (0.2-1.3); Blood Urea Nitrogen 19 mg/dL (9-20); Calcium 9.4 mg/dL (8.4-10.2); Carbon Dioxide 27 mmol/L (22-32); Chloride 99 mmol/L (98-107); Estimated Glomerular Filt Rate > 60 mL/min (>60); Globulin 3.9 g/dL (1.7-4.1); Glucose 171 mg/dL (80-110); HEMOLYSIS < 15 (0-50); Potassium 4.4 mmol/L (3.4-5.1); Sodium 139 mmol/L (137-145); Total Protein 8.5 g/dL (6.3-8.2)
--- NOTE | 2022-09-06 22:35 | DI.CT.S_ITS ---
PROCEDURE: CT CHEST ABD PEL W CON INDICATIONS: Cough/abdominal pain/vomiting/diarrhea TECHNIQUE: After the administration of intravenous contrast, axial sections acquired from the supraclavicular neck to the pubic symphysis. Coronal and sagittal reformats were performed. For radiation dose reduction, the following was used: automated exposure control, adjustment of mA and/or kV according to patient size. COMPARISON: [facility], CT, CT ABDOMEN PELVIS W CON, 02/18/2022, 13:30. [facility], CT, CT ABDOMEN PELVIS W CON, 01/29/2022, 21:09. CT, CT ABDOMEN PELVIS W CON, 10/31/2021, 12:28. [facility], CT, CT CHEST ABD PEL W CON, 07/12/2021, 18:48. FINDINGS: Image quality: There is motion artifact limiting evaluation. There is also beam hardening artifact from patient's bilateral upper extremities limiting evaluation. CHEST: Lower Neck: No lymphadenopathy by size criteria. Thyroid: Visualized thyroid demonstrates no discrete nodules. Axillae: No lymphadenopathy by size criteria. Chest Wall: Unremarkable. Bones: Visualized osseous structures demonstrate no suspicious lesions. Lungs and Airways: There are confluent areas of consolidation within the left upper and lower lobes with a posterior predominance. Mild consolidation also demonstrated in the right lower lobe. There are associated clustered ground-glass nodules predominantly within the left lung base. The findings are consistent with pneumonia. The trachea and central airways are patent. Pleura: No pneumothorax or pleural effusions. Heart: Heart size is normal. No pericardial effusion. Thoracic Vessels: The aorta and pulmonary arteries are normal in size. Mediastinum and Annalisa: No lymphadenopathy by size criteria. Esophagus: No wall thickening. There is a small hiatal hernia. Lung bases: Unremarkable. Heart: Heart is normal in size. ABDOMEN: Liver: No mass lesion. Gallbladder: Surgically absent. Biliary ducts: No biliary ductal dilatation. Pancreas: Unremarkable. Spleen: Normal in size. Adrenal Glands: No adrenal nodules. Kidneys and Ureters: No hydronephrosis. There is a nonobstructing 0.4 cm stone redemonstrated within the left kidney. A lobulated partially calcified cyst is also redemonstrated within the right kidney. Stomach and Bowel: Stomach, small bowel loops, and colon are normal in caliber and wall thickness. The appendix is normal in appearance. Colonic diverticulosis is present without acute diverticulitis. Peritoneum: No abnormal intraperitoneal fluid. No free air. Ventral Wall: No hernia. Abdominal Nodes: No retroperitoneal or mesenteric adenopathy by size criteria. Vessels: Aorta and inferior vena cava are normal in size. PELVIS: Pelvic Organs: There is moderate heterogeneous enlargement of the prostate. Bladder: The bladder demonstrates mild bladder wall thickening and trabeculation consistent sequelae of chronic bladder outlet obstruction. Pelvic Nodes: No enlarged lymph nodes. Miscellaneous: There is a small amount of nonspecific fluid within the left inguinal canal. Bones: Visualized osseous structures demonstrate no suspicious focal lesions. IMPRESSION: 1. Confluent areas of consolidation within the left upper and lower lobes as well as the right lower lobe consistent with pneumonia. 2. Colonic diverticulosis. 3. Left nephrolithiasis. Dictated by: Hansel Castillo M.D. on 09/07/2022 at 0:37 Approved by: Hansel Castillo M.D. on 09/07/2022 at 0:42
--- NOTE | 2022-09-06 22:37 | ED.NAVMDI ---
HPI - Nausea/Vomiting/Diarrhea General Chief complaint: Nausea/Vomiting/Diarrhea Stated complaint: NVD Time Seen by Provider: 09/06/22 22:28 Source: patient and EMS Mode of arrival: EMS History of Present Illness HPI Narrative: Patient brought in by ambulance from home. Complaints 2 days of nausea vomiting diarrhea fever body aches and chills. At this time patient not able to give good history. This report was given by EMS. Patient sees Dr. Samson Lopez. Patient at this time able to answer to name. Does follow instructions. However unable to answer if he is having abdominal pain. Related Data Previous Rx's Medication Instructions Recorded citalopram 40 mg tablet 40 mg PO DAILY #90 tabs 11/15/21 finasteride 5 mg tablet 5 mg PO DAILY #90 tabs 11/15/21 atenolol 50 mg tablet 100 mg PO DAILY #180 tabs 11/16/21 pantoprazole 40 mg tablet,delayed 40 mg PO BID #180 tabs 04/13/22 release (Protonix) amoxicillin 500 mg-potassium 1 tab PO BID #5 tabs 09/10/22 clavulanate 125 mg tablet (Augmentin) doxycycline hyclate 100 mg capsule 100 mg PO BID #5 caps 09/10/22 ferrous sulfate 325 mg (65 mg 325 mg PO DAILY #30 tabs 09/10/22 iron) tablet Allergies Allergy/AdvReac Type Severity Reaction Status Date / Time carbamazepine [CARBAMAZEPINE] Allergy Mild HIVES Verified 08/14/22 13:43 adhesive tape AdvReac Intermediate Blister Verified 08/14/22 13:43 codeine [CODEINE] AdvReac Mild CONSTIPATIO Verified 08/14/22 13:43 N tamsulosin [TAMSULOSIN] AdvReac Mild REAL BAD Verified 08/14/22 13:43 COUGH morphine [MORPHINE] AdvReac Unknown severe Verified 08/14/22 13:43 nausea/vomiting Review of Systems Review of Systems ROS Unobtainable: Unobtainable due to mental status/LOC; No All systems reviewed & are unremarkable except as noted in HPI and below, Unobtainable due to medical condition, Unobtainable due to mental condition or Other 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) Pelvic somatic dysfunction Piriformis syndrome of left side Polymyalgia rheumatica Poor appetite Sacral region somatic dysfunction Shingles outbreak Small bowel obstruction Somatic dysfunction of lower extremity 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) Trigeminal neuralgia Zoster Surgical History H/O prostate biopsy H/O total cystectomy History of angioplasty (2001) History of gastrointestinal surgery Hx of inguinal hernia surgery Status post cholecystectomy Family History Father Macular degeneration Sister Hypertension Social History marital status: number of children: 0 household members: spouse Smoking Status: Never smoker alcohol intake: current substance use type: does not use caffeine: Yes Smoking Status: Never smoker alcohol intake frequency: a few times a week Substance Use Type: does not use Exam Narrative Exam Narrative: GENERAL: in no distress, not toxic not dyspneic HEAD: Normocephalic. EYES: Pupils equal round No scleral icterus. ENT: Mucous membranes dry, oral cavity NECK: Trachea midline. CARDIOVASCULAR: Regular rate and rhythm without murmurs RESPIRATORY: Clear to auscultation. Breath sounds equal bilaterally. No wheezes, rales, or rhonchi. GASTROINTESTINAL: Abdomen soft, non-tender, bowel sounds present. Not distended. No peritoneal signs EXTREMITIES: No gross deformities. BACK: No flank tenderness. NEURO: Patient awake alert only to name. SKIN: Warm and dry PSYCH: Not anxious, is cooperative Initial Vital Signs Initial Vital Signs: Vital Signs Temperature 98.1 F 09/06/22 22:01 Pulse Rate 94 H 09/06/22 22:01 Respiratory Rate 20 09/06/22 22:01 Blood Pressure 169/82 H 09/06/22 22:01 Pulse Oximetry 95 09/06/22 22:01 Oxygen Delivery Method 09/06/22 22:01 Course Course Course Narrative: No new issues during course of stay Decision to Admit Date: 09/06/22 Decision to Admit time: 22:40 Orders Ordered: Discontinued Medications Acetaminophen (Acetaminophen 325 Mg Tablet) 650 mg PO Q6HR PRN PRN Reason: Fever/Mild Pain (1-3) Last Admin: 09/07/22 10:21 Dose: 650 mg Documented By: ENRIQUE Acetaminophen (Acetaminophen 325 Mg Tablet) 650 mg PO Q6H PENDING SALE TO [facility] Last Admin: 09/10/22 14:41 Dose: Not Given Documented By: Admin: 09/10/22 09:03 Dose: Not Given Documented By: Admin: 09/10/22 00:59 Dose: 650 mg Documented By: Admin: 09/09/22 17:46 Dose: Not Given Documented By: Admin: 09/09/22 13:09 Dose: Not Given Documented By: Admin: 09/09/22 09:02 Dose: 650 mg Documented By: Admin: 09/09/22 02:00 Dose: Not Given Documented By: Admin: 09/08/22 20:09 Dose: 650 mg Documented By: Admin: 09/08/22 14:00 Dose: Not Given Documented By: Admin: 09/08/22 08:49 Dose: 650 mg Documented By: Admin: 09/08/22 01:46 Dose: Not Given Documented By: Admin: 09/07/22 19:20 Dose: Not Given Documented By: Admin: 09/07/22 12:52 Dose: Not Given Documented By: ENRIQUE(2) Admin: 09/07/22 08:09 Dose: Not Given Documented By: SHIRA Hydrocodone Bitart/Acetaminophen (Hydrocodone/Acet 5/325 Tablet) 1 tab PO Q4H PRN PRN Reason: Pain, Moderate (4-6) Atenolol (Atenolol 50 Mg Tablet) 100 mg PO DAILY PENDING SALE TO [facility] Last Admin: 09/10/22 09:13 Dose: 100 mg Documented By: Admin: 09/09/22 09:01 Dose: 100 mg Documented By: Admin: 09/08/22 08:47 Dose: 100 mg Documented By: Admin: 09/07/22 10:22 Dose: 100 mg Documented By: ENRIQUE Citalopram Hydrobromide (Citalopram 10 Mg Tablet) 40 mg PO DAILY PENDING SALE TO [facility] Last Admin: 09/10/22 09:13 Dose: 40 mg Documented By: Admin: 09/09/22 09:02 Dose: 40 mg Documented By: Admin: 09/08/22 08:46 Dose: 40 mg Documented By: Admin: 09/07/22 10:22 Dose: 40 mg Documented By: ENRIQUE Docusate Sodium (Docusate 100 Mg Capsule) 100 mg PO NOW ONE Stop: 09/10/22 10:46 Last Admin: 09/10/22 12:01 Dose: 100 mg Documented By: LISSA Doxycycline Hyclate (Doxycycline 100 Mg Vial) 100 mg INJ INTRA-OP ONE Stop: 09/07/22 01:23 Last Admin: 09/07/22 02:22 Dose: Not Given Documented By: HO Enoxaparin Sodium (Enoxaparin 40 Mg/0.4 Ml Syringe) 40 mg SUBCUT DAILY PENDING SALE TO [facility] Last Admin: 09/10/22 09:13 Dose: 40 mg Documented By: Admin: 09/09/22 12:06 Dose: 40 mg Documented By: Admin: 09/08/22 08:48 Dose: 40 mg Documented By: Admin: 09/07/22 09:39 Dose: 40 mg Documented By: ENRIQUE Ferrous Sulfate (Ferrous Sulfate 325 Mg Tablet) 325 mg PO DAILY PENDING SALE TO [facility] Last Admin: 09/10/22 09:13 Dose: 325 mg Documented By: Admin: 09/09/22 12:06 Dose: 325 mg Documented By: JUSTO Finasteride (Finasteride 5 Mg Tablet) 5 mg PO DAILY PENDING SALE TO [facility] Last Admin: 09/10/22 09:12 Dose: 5 mg Documented By: Admin: 09/09/22 09:02 Dose: 5 mg Documented By: Admin: 09/08/22 08:46 Dose: 5 mg Documented By: Admin: 09/07/22 10:23 Dose: 5 mg Documented By: ENRIQUE Sodium Chloride (Normal Saline 0.9%) 1,000 mls @ 1,000 mls/hr IV BOLUS ONE Stop: 09/06/22 23:04 Last Infusion: 09/07/22 00:29 Dose: 0 mls/hr Documented By: Admin: 09/06/22 22:28 Dose: 1,000 mls/hr Documented By: TEDDY Ceftriaxone Sodium 2,000 mg/ (Sodium Chloride) 100 mls @ 200 mls/hr IV NOW ONE Stop: 09/07/22 01:23 Last Infusion: 09/07/22 02:20 Dose: 0 mls/hr Documented By: Admin: 09/07/22 01:43 Dose: 200 mls/hr Documented By: HO Doxycycline Hyclate 100 mg/ (Sodium Chloride) 100 mls @ 100 mls/hr IV NOW ONE Stop: 09/07/22 02:06 Last Infusion: 09/07/22 03:21 Dose: 0 mls/hr Documented By: Admin: 09/07/22 02:12 Dose: 100 mls/hr Documented By: HO Lactated Ringer's (Lactated Ringers) 1,000 mls @ 1,000 mls/hr IV BOLUS ONE Stop: 09/07/22 06:46 Last Infusion: 09/07/22 07:15 Dose: 0 mls/hr Documented By: Admin: 09/07/22 05:53 Dose: 1,000 mls/hr Documented By: TEDDY Sodium Chloride (Normal Saline 0.9%) 1,000 mls @ 125 mls/hr IV CONT SOFÍA Last Admin: 09/07/22 07:46 Dose: Not Given Documented By: MLM Dextrose/Lactated Ringer's (Dextrose 5%-Lactated Ringers) 1,000 mls @ 125 mls/hr IV CONT SOFÍA Stop: 09/08/22 07:00 Last Admin: 09/08/22 06:11 Dose: 125 mls/hr Documented By: Infusion: 09/08/22 05:30 Dose: 125 mls/hr Documented By: Admin: 09/07/22 21:30 Dose: 125 mls/hr Documented By: Infusion: 09/07/22 20:57 Dose: 125 mls/hr Documented By: Admin: 09/07/22 12:57 Dose: 125 mls/hr Documented By: ENRIQUE(2) Infusion: 09/07/22 11:36 Dose: 0 mls/hr Documented By: Admin: 09/07/22 08:05 Dose: 125 mls/hr Documented By: SHIRA Ceftriaxone Sodium 1,000 mg/ (Sodium Chloride) 100 mls @ 200 mls/hr IV Q24H SOFÍA Stop: 09/12/22 20:59 Last Admin: 09/09/22 20:19 Dose: 200 mls/hr Documented By: Infusion: 09/08/22 20:40 Dose: 200 mls/hr Documented By: Admin: 09/08/22 20:10 Dose: 200 mls/hr Documented By: Infusion: 09/07/22 22:00 Dose: 200 mls/hr Documented By: Admin: 09/07/22 21:30 Dose: 200 mls/hr Documented By: LAURA Doxycycline Hyclate 100 mg/ (Sodium Chloride) 100 mls @ 100 mls/hr IV Q12H SOFÍA Stop: 09/12/22 01:59 Last Admin: 09/10/22 14:42 Dose: Not Given Documented By: Admin: 09/10/22 00:59 Dose: 100 mls/hr Documented By: Infusion: 09/09/22 15:42 Dose: 100 mls/hr Documented By: Admin: 09/09/22 14:42 Dose: 100 mls/hr Documented By: Infusion: 09/09/22 03:17 Dose: 100 mls/hr Documented By: Admin: 09/09/22 02:17 Dose: 100 mls/hr Documented By: Infusion: 09/08/22 15:50 Dose: 100 mls/hr Documented By: Admin: 09/08/22 14:50 Dose: 100 mls/hr Documented By: Infusion: 09/08/22 02:56 Dose: 100 mls/hr Documented By: Admin: 09/08/22 01:56 Dose: 100 mls/hr Documented By: Infusion: 09/07/22 15:18 Dose: 0 mls/hr Documented By: ENRIQUE(2) Admin: 09/07/22 14:18 Dose: 100 mls/hr Documented By: ENRIQUE(2) Sodium Chloride (Normal Saline 0.9%) 250 mls @ 21 mls/hr IV Q24H PRN PRN Reason: Flush Last Admin: 09/08/22 20:10 Dose: 21 mls/hr Documented By: CARLOS Naloxone HCl (Naloxone 0.4 Mg/Ml Vial) 0.2 mg IV Q2MIN PRN PRN Reason: Opiate Reversal Ondansetron HCl (Ondansetron 4 Mg/2 Ml Inj) 4 mg IV NOW ONE Stop: 09/06/22 22:06 Last Admin: 09/06/22 22:28 Dose: 4 mg Documented By: TEDDY Ondansetron HCl (Ondansetron 4 Mg/2 Ml Inj) 4 mg IV Q4HR PRN PRN Reason: Nausea And Vomiting Ondansetron HCl (Ondansetron 4 Mg/2 Ml Inj) 4 mg IV Q8HR PRN PRN Reason: Nausea And Vomiting Pantoprazole Sodium (Pantoprazole Dr 40 Mg Tablet) 40 mg PO BID PENDING SALE TO [facility] Last Admin: 09/10/22 09:13 Dose: 40 mg Documented By: Admin: 09/09/22 20:19 Dose: 40 mg Documented By: Admin: 09/09/22 09:03 Dose: 40 mg Documented By: Admin: 09/08/22 20:09 Dose: 40 mg Documented By: Admin: 09/08/22 08:49 Dose: 40 mg Documented By: Admin: 09/07/22 21:31 Dose: 40 mg Documented By: Admin: 09/07/22 10:23 Dose: 40 mg Documented By: ENRIQUE Polyethylene Glycol (Polyethylene Glycol 3350 17 Gm Powd.Pack) 17 gm PO DAILY PRN PRN Reason: Constipation Last Admin: 09/10/22 12:02 Dose: 17 gm Documented By: Admin: 09/09/22 12:06 Dose: 17 gm Documented By: JUSTO Sodium Chloride (Sodium Chloride 0.9% Flush) 10 ml IV PRN PRN PRN Reason: Flush Sodium Chloride (Sodium Chloride 0.9% Flush) 10 ml IV BID PENDING SALE TO [facility] Last Admin: 09/10/22 09:29 Dose: 10 ml Documented By: LISSA Reevaluation(s) Reevaluation #1: Patient in no distress at this time. Tolerating supplemental oxygen. Protecting airway. Time: 01:50 Consultations Consultation #1: s/w pcp dr lopez, will admit pt Time: 04:20 Vital Signs Vital signs: Vital Signs - 8 hr 09/06/22 22:01 09/06/22 22:07 09/06/22 22:30 Temperature 98.1 F Pulse Rate 94 H 96 H Respiratory Rate 20 30 H Blood Pressure 169/82 H 160/72 H Pulse Oximetry 95 89 L Oxygen Delivery Method Room Air 09/06/22 22:30 09/06/22 22:59 09/06/22 23:15 Temperature Pulse Rate 89 96 H Respiratory Rate 27 H 26 H Blood Pressure 141/62 H Pulse Oximetry 95 96 Oxygen Delivery Method 09/06/22 23:16 09/06/22 23:30 09/06/22 23:30 Temperature Pulse Rate 104 H 101 H Respiratory Rate 21 Blood Pressure 124/58 L Pulse Oximetry 87 L 94 Oxygen Delivery Method 09/07/22 00:00 09/07/22 00:00 09/07/22 00:30 Temperature Pulse Rate 98 H 100 H Respiratory Rate 26 H 28 H Blood Pressure 126/62 Pulse Oximetry 92 92 Oxygen Delivery Method 09/07/22 00:31 09/07/22 00:31 09/07/22 01:00 Temperature Pulse Rate 101 H Respiratory Rate 44 H Blood Pressure 125/76 115/67 Pulse Oximetry 90 L Oxygen Delivery Method 09/07/22 01:00 09/07/22 01:30 09/07/22 01:30 Temperature Pulse Rate 100 H 97 H Respiratory Rate 38 H 21 Blood Pressure 126/68 Pulse Oximetry 92 93 Oxygen Delivery Method 09/07/22 02:00 09/07/22 02:00 09/07/22 02:30 Temperature Pulse Rate 96 H Respiratory Rate 24 Blood Pressure 129/67 135/66 Pulse Oximetry 95 Oxygen Delivery Method 09/07/22 02:30 09/07/22 03:00 09/07/22 03:00 Temperature Pulse Rate 96 H 93 H Respiratory Rate 23 24 Blood Pressure 125/62 Pulse Oximetry 93 94 Oxygen Delivery Method 09/07/22 03:30 09/07/22 03:30 09/07/22 04:00 Temperature Pulse Rate 92 H Respiratory Rate 22 Blood Pressure 124/60 115/59 L Pulse Oximetry Oxygen Delivery Method 09/07/22 04:00 Temperature Pulse Rate 89 Respiratory Rate 24 Blood Pressure Pulse Oximetry Oxygen Delivery Method MDM - Nausea/Vomiting/Diarrhea Differential Diagnosis Differential diagnosis: Likely gastroenteritis, dehydration and other (CO/bowel obstruction/appendicitis/pancreatitis/viral syndrome) Lab Data Result diagrams: 09/10/22 07:49 09/10/22 07:49 Labs: Lab Results 09/06/22 09/06/22 09/06/22 Range/Units 21:55 21:55 21:55 WBC 14.1 H (4.5-11.0) X10^3/uL RBC 4.55 (4.5-5.9) X10^6/uL Hgb 12.7 L (13.5-17.5) g/dL Hct 38.9 L (41-53) % MCV 85.5 (80-100) fL MCH 27.9 (26-34) PG MCHC 32.6 (30-36) % RDW 14.3 (11.6-14.8) % Plt Count 275 (150-400) X10^3/uL Neut % (Auto) Not Reportable Lymph % (Auto) Not Reportable Titus % (Auto) Not Reportable Eos % (Auto) Not Reportable Baso % (Auto) Not Reportable Lymph # (Auto) Not Reportable Titus # (Auto) Not Reportable Baso # (Auto) Not Reportable Total Counted 100 Seg Neutrophils % 84.0 H (38-70) % Band Neutrophils % 1.0 L (3-7) % Lymphocytes % (Manual) 13.0 L (25-45) % Monocytes % (Manual) 2.0 (2-11) % Neutrophils # (Manual) 19398 H (1253-4174) /uL RBC Morphology Normal morphology Sodium 139 (137-145) mmol/L Potassium 4.4 (3.4-5.1) mmol/L Chloride 99 (98-107) mmol/L Carbon Dioxide 27 (22-32) mmol/L BUN 19 (9-20) mg/dL Creatinine 0.96 (0.66-1.25) mg/dL Estimated GFR > 60 (>60) mL/min BUN/Creatinine Ratio 19.8 (6-22) Glucose 171 H (80-110) mg/dL Lactate (0.7-2.1) mmol/L Calcium 9.4 (8.4-10.2) mg/dL Total Bilirubin 0.6 (0.2-1.3) mg/dL AST 31 (17-59) IU/L ALT 21 (<50) IU/L Alkaline Phosphatase 108 (38-126) U/L Total Creatine Kinase 59 (55-170) U/L CK-MB (CK-2) TNP CK-MB (CK-2) Rel Index TNP Troponin I < 0.012 (0.01-0.034) ng/mL Total Protein 8.5 H (6.3-8.2) g/dL Albumin 4.6 (3.5-5.0) g/dL Globulin 3.9 (1.7-4.1) g/dL Albumin/Globulin Ratio 1.2 (1.0-2.8) Procalcitonin (<0.5) ng/mL Chlamy pneumoniae PCR (Not Detect) Adenovirus (PCR) (Not Detect) B. pertussis DNA (PCR) (Not Detecte) B.parapertussis DNA PCR (Not Detecte) Coronavirus OC43 (PCR) (Not Detect) Coronavirus HKU1 (PCR) (Not Detect) Coronavirus 229E (PCR) (Not Detect) SARS-CoV-2 (PCR) (Not Detecte) Coronavirus NL63 (PCR) (Not Detect) Human Metapneumovir PCR (Not Detect) Influenza Type A (PCR) (Not Detect) Influenza Type B (PCR) (Not Detect) M. pneumoniae (PCR) (Not Detect) Parainfluenza 1 (PCR) (Not Detect) Parainfluenza 2 (PCR) (Not Detect) Parainfluenza 3 (PCR) (Not Detect) Parainfluenza 4 (PCR) (Not Detect) RSV (PCR) (Not Detect) Entero/Rhino (PCR) (Not Detect) 09/06/22 09/06/22 09/06/22 Range/Units 21:55 21:55 21:59 WBC (4.5-11.0) X10^3/uL RBC (4.5-5.9) X10^6/uL Hgb (13.5-17.5) g/dL Hct (41-53) % MCV (80-100) fL MCH (26-34) PG MCHC (30-36) % RDW (11.6-14.8) % Plt Count (150-400) X10^3/uL Neut % (Auto) Lymph % (Auto) Titus % (Auto) Eos % (Auto) Baso % (Auto) Lymph # (Auto) Titus # (Auto) Baso # (Auto) Total Counted Seg Neutrophils % (38-70) % Band Neutrophils % (3-7) % Lymphocytes % (Manual) (25-45) % Monocytes % (Manual) (2-11) % Neutrophils # (Manual) (5264-2747) /uL RBC Morphology Sodium (137-145) mmol/L Potassium (3.4-5.1) mmol/L Chloride (98-107) mmol/L Carbon Dioxide (22-32) mmol/L BUN (9-20) mg/dL Creatinine (0.66-1.25) mg/dL Estimated GFR (>60) mL/min BUN/Creatinine Ratio (6-22) Glucose (80-110) mg/dL Lactate 5.0 H* (0.7-2.1) mmol/L Calcium (8.4-10.2) mg/dL Total Bilirubin (0.2-1.3) mg/dL AST (17-59) IU/L ALT (<50) IU/L Alkaline Phosphatase (38-126) U/L Total Creatine Kinase (55-170) U/L CK-MB (CK-2) CK-MB (CK-2) Rel Index Troponin I (0.01-0.034) ng/mL Total Protein (6.3-8.2) g/dL Albumin (3.5-5.0) g/dL Globulin (1.7-4.1) g/dL Albumin/Globulin Ratio (1.0-2.8) Procalcitonin 0.08 (<0.5) ng/mL Chlamy pneumoniae PCR Not detected (Not Detect) Adenovirus (PCR) Not detected (Not Detect) B. pertussis DNA (PCR) Not detected (Not Detecte) B.parapertussis DNA PCR Not detected (Not Detecte) Coronavirus OC43 (PCR) Not detected (Not Detect) Coronavirus HKU1 (PCR) Not detected (Not Detect) Coronavirus 229E (PCR) Not detected (Not Detect) SARS-CoV-2 (PCR) Not detected (Not Detecte) Coronavirus NL63 (PCR) Not detected (Not Detect) Human Metapneumovir PCR Not detected (Not Detect) Influenza Type A (PCR) Not detected (Not Detect) Influenza Type B (PCR) Not detected (Not Detect) M. pneumoniae (PCR) Not detected (Not Detect) Parainfluenza 1 (PCR) Not detected (Not Detect) Parainfluenza 2 (PCR) Not detected (Not Detect) Parainfluenza 3 (PCR) Not detected (Not Detect) Parainfluenza 4 (PCR) Not detected (Not Detect) RSV (PCR) Not detected (Not Detect) Entero/Rhino (PCR) Not detected (Not Detect) Imaging Data ct chest abd pelvis: Radiologist's Impression: [address] [address] [address] Scan Report Signed Patient: Mark Stevens Jr MR#: [id number] : 1935 Acct:[id number] Age/Sex: 87 / M Date of Service: 09/06/22 Loc: ED Accession Number: [id number] ?? Procedure: CT chest abd pel w con Ordering Provider: Ricky Balderas MD PROCEDURE:? CT CHEST ABD PEL W CON ? INDICATIONS:? Cough/abdominal pain/vomiting/diarrhea ? TECHNIQUE:? After the administration of intravenous contrast, axial sections acquired from the supraclavicular neck to the pubic symphysis.? Coronal and sagittal reformats were performed.? For radiation dose reduction, the following was used:? automated exposure control, adjustment of mA and/or kV according to patient size.? ? COMPARISON: ? [facility], CT, CT ABDOMEN PELVIS W CON, 02/18/2022, 13:30.? [facility], CT, CT ABDOMEN PELVIS W CON, 01/29/2022, 21:09.? CT, CT ABDOMEN PELVIS W CON, 10/31/2021, 12:28.? [facility], CT, CT CHEST ABD PEL W CON, 07/12/2021, 18:48. ? FINDINGS:? Image quality:? There is motion artifact limiting evaluation.? There is also beam hardening artifact from patient's bilateral upper extremities limiting evaluation.? ? CHEST:? Lower Neck: No lymphadenopathy by size criteria. Thyroid:? Visualized thyroid demonstrates no discrete nodules. Axillae: No lymphadenopathy by size criteria. Chest Wall:? Unremarkable.? Bones: Visualized osseous structures demonstrate no suspicious lesions. ? Lungs and Airways:? There are confluent areas of consolidation within the left upper and lower lobes with a posterior predominance.? Mild consolidation also demonstrated in the right lower lobe.? There are associated clustered ground-glass nodules predominantly within the left lung base.? The findings are consistent with pneumonia.? The trachea and central airways are patent. Pleura: No pneumothorax or pleural effusions.? ? Heart: Heart size is normal.? No pericardial effusion. Thoracic Vessels: The aorta and pulmonary arteries are normal in size.? Mediastinum and Annalisa: No lymphadenopathy by size criteria. Esophagus: No wall thickening.? There is a small hiatal hernia. ? Lung bases:? Unremarkable.? ? Heart:? Heart is normal in size. ? ? ABDOMEN: Liver:? No mass lesion. Gallbladder:? Surgically absent. Biliary ducts:? No biliary ductal dilatation.? ? Pancreas:? Unremarkable.? ? Spleen:? Normal in size.? ? Adrenal Glands:? No adrenal nodules.? ? Kidneys and Ureters:? No hydronephrosis.? There is a nonobstructing 0.4 cm stone redemonstrated within the left kidney.? A lobulated partially calcified cyst is also redemonstrated within the right kidney.? ? Stomach and Bowel:? Stomach, small bowel loops, and colon are normal in caliber and wall thickness.? The appendix is normal in appearance.? Colonic diverticulosis is present without acute diverticulitis. Peritoneum:? No abnormal intraperitoneal fluid.? No free air.? ? Ventral Wall: ? No hernia.? Abdominal Nodes:? No retroperitoneal or mesenteric adenopathy by size criteria.? Vessels:? Aorta and inferior vena cava are normal in size.? ? PELVIS: Pelvic Organs:? There is moderate heterogeneous enlargement of the prostate.? ? Bladder:? The bladder demonstrates mild bladder wall thickening and trabeculation consistent sequelae of chronic bladder outlet obstruction. Pelvic Nodes: No enlarged lymph nodes.? Miscellaneous:? There is a small amount of nonspecific fluid within the left inguinal canal. ? Bones:? Visualized osseous structures demonstrate no suspicious focal lesions. ? IMPRESSION:? ? 1.? Confluent areas of consolidation within the left upper and lower lobes as well as the right lower lobe consistent with pneumonia.? ? 2.? Colonic diverticulosis. ? 3.? Left nephrolithiasis. ? Dictated by: Hansel Castillo M.D. on 09/07/2022 at 0:37 ? ? Approved by: Hansel Castillo M.D. on 09/07/2022 at 0:42 ? ECG Data Interpretation: Wide QRS rhythm. Left axis deviation. Right bundle-branch block. No ST elevation or depression MDM Narrative Medical decision making narrative: Appropriate for admission. Patient requiring supplemental oxygen. Blood cultures antibiotics have been started. Reviewed with primary care on-call and agrees for admit Discharge Plan Departure Patient Disposition: Admitted As Inpatient Clinical Impression: Community acquired pneumonia Admit Date/Time: 09/07/22 04:21 Admit Provider: Samson Lopez
[2022-09-06 22:44] LABS: Add Manual Diff / Slide Review YES
[2022-09-06 22:52] LABS: Creatine Kinase 59 U/L (55-170)
[2022-09-06 22:57] LABS: Neutrophils Absolute Manual 11985 /uL (3000-5900); Total Cells Counted 100
[2022-09-06 22:58] LABS: RBC Morphology Normal Morphology
[2022-09-06 23:05] LABS: Troponin I < 0.012 ng/mL (0.01-0.034)
[2022-09-06 23:14] LABS: Adenovirus Not Detected (Not Detect); B. parapertussis Not Detected (Not Detecte); Bordetella pertussis Not Detected (Not Detecte); Chlamydophila pneumoniae Not Detected (Not Detect); Coronavirus 229E Not Detected (Not Detect); Coronavirus HKU1 Not Detected (Not Detect); Coronavirus NL 63 Not Detected (Not Detect); Coronavirus OC43 Not Detected (Not Detect); Human Metapneumovirus Not Detected (Not Detect); Human Rhinovirus/Enterovirus Not Detected (Not Detect); Influenza A Not Detected (Not Detect); Influenza B Not Detected (Not Detect); Mycoplasma pneumoniae Not Detected (Not Detect); Parainfluenza Virus 1 Not Detected (Not Detect); Parainfluenza Virus 2 Not Detected (Not Detect); Parainfluenza Virus 3 Not Detected (Not Detect); Parainfluenza Virus 4 Not Detected (Not Detect); Respiratory Syncytial Virus Not Detected (Not Detect); SARS- CoV-2 Not Detected (Not Detecte)
[2022-09-07] VITALS (28 sets, daily range): BP systolic 115–135; BP diastolic 54–76; PULSE 75–101; RESP 18–44; TEMP 36.9–37.5; O2SAT 88–97; BMI 23.1
[2022-09-07] MEDS: cefTRIAXone 2,000 MG in SODIUM CHLORIDE 0.9% 100 ML 200 MG IV (01:43)
[2022-09-07] MEDS: DOXYCYCLINE 100 MG in SODIUM CHLORIDE 0.9% 100 ML IV ×2 (02:12→14:18)
[2022-09-07 04:56] LABS: Procalcitonin 0.08 ng/mL (<0.5)
[2022-09-07] MEDS: LACTATED RINGERS 1,000 ML 1000 ML IV (05:53)
[2022-09-07 06:23] LABS: Reflexed Lactate in 2 Hours Y
--- NOTE | 2022-09-07 07:12 | PM.HP.1 ---
History of Present Illness History of Present Illness Date Patient Seen: 09/07/22 Time Patient Seen: 07:12 Chief complaint: NVD Narrative: 87-year-old male with a history of coronary artery disease hypertension hyperlipidemia recurrent small-bowel obstruction gastrointestinal bleeding and osteoarthritis of spine comes in today because of not feeling well. Patient was brought in by ambulance. Patient is a difficult historian. Called and discussed with his who lives at home with him. She says that he is had on and off diarrhea for many months. Which is not unusual. Over the last 3 or 4 days. The diet increased more after he was constipated. She says then he became quite nauseated. Had acid stomach and began vomiting. This vomiting has been persistent over the last 3 or 4 days. Every time she tried to give him something to eat or drink he would immediately throw it back up. Yesterday he became a little bit more weak she tried to continue to work on hydration and he continued to vomit. And sitting in the chair yesterday afternoon. He was weak he she said he was a little bit confused. She said she is thought she was going to lose him maybe like passing out. And so she called 911. She says over the past few days he is had some maybe low-grade chills. She has not really checked his temperature. He is had a mild cough. She says he complains about everything so it is hard to know which complaint is concerning or not. 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) Pelvic somatic dysfunction Piriformis syndrome of left side Polymyalgia rheumatica Poor appetite Sacral region somatic dysfunction Shingles outbreak Small bowel obstruction Somatic dysfunction of lower extremity 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) Trigeminal neuralgia Zoster Surgical History H/O prostate biopsy H/O total cystectomy History of angioplasty (2001) History of gastrointestinal surgery Hx of inguinal hernia surgery Status post cholecystectomy Family & Social History Family History Father Macular degeneration Sister Hypertension Social History: household members spouse Safety & Behavioral: Feels Safe in Current Yes Environment Been Physically Hurt or No Threatened By a Person Tobacco & Substance use: Smoking Status Never smoker alcohol intake current alcohol intake frequency a few times a week Substance Use Type does not use Meds Home Medications and Allergies Home Medications Medication Instructions Recorded Confirmed Type VITAMIN D (Vitamin D3) 1,000 unit PO QDAY ##0 11/18/11 08/14/22 History citalopram 40 mg tablet 40 mg PO DAILY #90 tabs 11/15/21 08/14/22 Rx finasteride 5 mg tablet 5 mg PO DAILY #90 tabs 11/15/21 08/14/22 Rx atenolol 50 mg tablet 100 mg PO DAILY #180 tabs 11/16/21 08/14/22 Rx pantoprazole 40 mg tablet,delayed 40 mg PO BID #180 tabs 04/13/22 08/14/22 Rx release (Protonix) Allergies Allergy/AdvReac Type Severity Reaction Status Date / Time carbamazepine [CARBAMAZEPINE] Allergy Mild HIVES Verified 08/14/22 13:43 adhesive tape AdvReac Intermediate Blister Verified 08/14/22 13:43 codeine [CODEINE] AdvReac Mild CONSTIPATIO Verified 08/14/22 13:43 N tamsulosin [TAMSULOSIN] AdvReac Mild REAL BAD Verified 08/14/22 13:43 COUGH morphine [MORPHINE] AdvReac Unknown severe Verified 08/14/22 13:43 nausea/vomiting Exam Vital Signs (past 8 hours): - 09/06/22 23:15 09/06/22 23:16 09/06/22 23:30 Pulse Rate 104 H Respiratory Rate Blood Pressure 141/62 H 124/58 L Pulse Oximetry 87 L 09/06/22 23:30 09/07/22 00:00 09/07/22 00:00 Pulse Rate 101 H 98 H Respiratory Rate 21 26 H Blood Pressure 126/62 Pulse Oximetry 94 92 09/07/22 00:30 09/07/22 00:31 09/07/22 00:31 Pulse Rate 100 H 101 H Respiratory Rate 28 H 44 H Blood Pressure 125/76 Pulse Oximetry 92 90 L 09/07/22 01:00 09/07/22 01:00 09/07/22 01:30 Pulse Rate 100 H Respiratory Rate 38 H Blood Pressure 115/67 126/68 Pulse Oximetry 92 09/07/22 01:30 09/07/22 02:00 09/07/22 02:00 Pulse Rate 97 H 96 H Respiratory Rate 21 24 Blood Pressure 129/67 Pulse Oximetry 93 95 09/07/22 02:30 09/07/22 02:30 09/07/22 03:00 Pulse Rate 96 H Respiratory Rate 23 Blood Pressure 135/66 125/62 Pulse Oximetry 93 09/07/22 03:00 09/07/22 03:30 09/07/22 03:30 Pulse Rate 93 H 92 H Respiratory Rate 24 22 Blood Pressure 124/60 Pulse Oximetry 94 09/07/22 04:00 09/07/22 04:00 09/07/22 04:30 Pulse Rate 89 Respiratory Rate 24 Blood Pressure 115/59 L 126/58 L Pulse Oximetry 09/07/22 04:30 09/07/22 05:00 09/07/22 05:00 Pulse Rate 90 91 H Respiratory Rate 24 31 H Blood Pressure 117/55 L Pulse Oximetry 09/07/22 05:30 09/07/22 06:00 09/07/22 06:30 Pulse Rate 85 84 84 Respiratory Rate 23 22 23 Blood Pressure Pulse Oximetry 93 95 96 09/07/22 07:00 Pulse Rate 82 Respiratory Rate 21 Blood Pressure Pulse Oximetry 95 Oxygen Delivery Method Room Air Narrative Exam Narrative: Gen.: Alert poor historian and somewhat confused HEENT: Pale appearing male oral mucosa is moist neck is supple Cardio: S1-S2 systolic murmur present regular rate and rhythm Respiratory: Lungs show no wheezes or crackles mild increased work of breathing Abdomen: Soft mild distention no significant rebound or guarding some mild tenderness Extremities: Warm dry perfused Neurologic: No focal neurological deficits Objective Labs Result Diagrams: 09/06/22 21:55 09/06/22 21:55 Labs: Laboratory Results - last 24 hr 09/06/22 09/06/22 09/06/22 21:55 21:55 21:55 WBC 14.1 H RBC 4.55 Hgb 12.7 L Hct 38.9 L MCV 85.5 MCH 27.9 MCHC 32.6 RDW 14.3 Plt Count 275 Neut % (Auto) Not Reportable Lymph % (Auto) Not Reportable [place] % (Auto) Not Reportable Eos % (Auto) Not Reportable Baso % (Auto) Not Reportable Lymph # (Auto) Not Reportable [place] # (Auto) Not Reportable Baso # (Auto) Not Reportable Total Counted 100 Seg Neutrophils % 84.0 H Band Neutrophils % 1.0 L Lymphocytes % (Manual) 13.0 L Monocytes % (Manual) 2.0 Neutrophils # (Manual) 16028 H RBC Morphology Normal morphology Sodium 139 Potassium 4.4 Chloride 99 Carbon Dioxide 27 BUN 19 Creatinine 0.96 Estimated GFR > 60 BUN/Creatinine Ratio 19.8 Glucose 171 H Lactate Calcium 9.4 Total Bilirubin 0.6 AST 31 ALT 21 Alkaline Phosphatase 108 Total Creatine Kinase 59 CK-MB (CK-2) TNP CK-MB (CK-2) Rel Index TNP Troponin I < 0.012 Total Protein 8.5 H Albumin 4.6 Globulin 3.9 Albumin/Globulin Ratio 1.2 Procalcitonin Chlamy pneumoniae PCR Adenovirus (PCR) B. pertussis DNA (PCR) B.parapertussis DNA PCR Coronavirus OC43 (PCR) Coronavirus HKU1 (PCR) Coronavirus 229E (PCR) SARS-CoV-2 (PCR) Coronavirus NL63 (PCR) Human Metapneumovir PCR Influenza Type A (PCR) Influenza Type B (PCR) M. pneumoniae (PCR) Parainfluenza 1 (PCR) Parainfluenza 2 (PCR) Parainfluenza 3 (PCR) Parainfluenza 4 (PCR) RSV (PCR) Entero/Rhino (PCR) 09/06/22 09/06/22 09/06/22 21:55 21:55 21:59 WBC RBC Hgb Hct MCV MCH MCHC RDW Plt Count Neut % (Auto) Lymph % (Auto) [place] % (Auto) Eos % (Auto) Baso % (Auto) Lymph # (Auto) [place] # (Auto) Baso # (Auto) Total Counted Seg Neutrophils % Band Neutrophils % Lymphocytes % (Manual) Monocytes % (Manual) Neutrophils # (Manual) RBC Morphology Sodium Potassium Chloride Carbon Dioxide BUN Creatinine Estimated GFR BUN/Creatinine Ratio Glucose Lactate 5.0 H* Calcium Total Bilirubin AST ALT Alkaline Phosphatase Total Creatine Kinase CK-MB (CK-2) CK-MB (CK-2) Rel Index Troponin I Total Protein Albumin Globulin Albumin/Globulin Ratio Procalcitonin 0.08 Chlamy pneumoniae PCR Not detected Adenovirus (PCR) Not detected B. pertussis DNA (PCR) Not detected B.parapertussis DNA PCR Not detected Coronavirus OC43 (PCR) Not detected Coronavirus HKU1 (PCR) Not detected Coronavirus 229E (PCR) Not detected SARS-CoV-2 (PCR) Not detected Coronavirus NL63 (PCR) Not detected Human Metapneumovir PCR Not detected Influenza Type A (PCR) Not detected Influenza Type B (PCR) Not detected M. pneumoniae (PCR) Not detected Parainfluenza 1 (PCR) Not detected Parainfluenza 2 (PCR) Not detected Parainfluenza 3 (PCR) Not detected Parainfluenza 4 (PCR) Not detected RSV (PCR) Not detected Entero/Rhino (PCR) Not detected Assessment & Plan Assessment and plan (1) Community acquired pneumonia: Status: Acute Plan Pneumonia community-acquired versus aspiration. Patient is admitted to the hospital with pneumonia. Patient has had 3 or 4 days of weakness and vomiting. Maybe due to pneumonia may have also aspirated because of the vomiting. CT scan and white blood cell count or elevated patient is hypoxic requiring oxygen which she is not on at home. Be admitted with appropriate antibiotic therapy of ceftriaxone and doxycycline. His lactate was mildly elevated. His procalcitonin is normal. Patient also has confusion above his baseline. Will treat with appropriate community-acquired antibiotic therapy with ceftriaxone and doxycycline. Oxygen and have respiratory therapy consult and evaluate on this patient. We will monitor his white blood cell count and temperature and blood pressure to make sure that he does not significantly worsen. Acute metabolic encephalopathy. Patient confused beyond baseline. Probably due to underlying infection hypotension and illness. Hopefully that will clear as we improve his underlying pneumonia. Acute dehydration. I think patient is dehydrated. He is not been eating or drinking well for the last 3 days. He received some IV fluid in the emergency department will add maintenance IV fluid for the next 24 hours to help replete his losses from his vomiting and poor p.o. intake. Coronary artery disease. Negative troponin at this point. No complaints of chest pain. He will be paced on his beta-km. Hypertension. Patient is on atenolol 50 mg a day and will continue this. Gastroesophageal reflux with history of gastrointestinal bleeding no active bleeding now. Continue on pantoprazole 40 mg daily. Generalized anxiety disorder continue on citalopram at 40 mg daily. BPH. Does not tolerate Flomax. Will continue with finasteride 5 mg daily. Code status patient is a do not resuscitate Disposition and plan. Patient will be in the hospital for a number of days treating his underlying pneumonia. Discharge plan will be home if stable enough and able to ambulate home health. Time Spent With Patient Critical Care time: I spent a total of [] minutes of critical care time on this patient's care today; this time is exclusive of procedural time.
[2022-09-07] MEDS: DEXTROSE 5%-LACTATED RINGERS 1,000 ML 125 ML IV ×3 (08:05→21:30)
[2022-09-07] MEDS: ENOXAPARIN 40 MG/0.4 ML SYRINGE SUBCUT (09:39)
[2022-09-07 10:08] LABS: Lactate 2HR (Lactic Acid Rflx) 2.3 mmol/L (0.7-2.1)
[2022-09-07] MEDS: ACETAMINOPHEN 325 MG TABLET 650 MG PO (10:21)
[2022-09-07] MEDS: atenoloL 50 MG TABLET 100 MG PO (10:22)
[2022-09-07] MEDS: CITALOPRAM 10 MG TABLET 40 MG PO (10:22)
[2022-09-07] MEDS: FINASTERIDE 5 MG TABLET PO (10:23)
[2022-09-07] MEDS: PANTOPRAZOLE DR 40 MG TABLET PO ×2 (10:23→21:31)
[2022-09-07 11:51] LABS: Appearance Urine UA CLEAR; Bilirubin Urine UA NEGATIVE (NEGATIVE); Color Urine UA YELLOW; Glucose Urine UA NEGATIVE (Negative); Ketones Urine UA NEGATIVE (NEGATIVE); Leukocyte Esterase Urine UA TRACE (NEGATIVE); Nitrite Urine UA NEGATIVE (Negative); Occult Blood Urine UA 3+ (Negative); Protein Urine UA 1+ (Negative); Urobilinogen Urine UA 0.2 E.U./dL (0.2)
[2022-09-07 11:59] LABS: Bacteria Urine Occasional (0-1); Culture Indicated Urine Cult Not Indicated; RBC Urine 1-5/HPF (0-5/HPF); Squamous Epithelial Cell Urine None Seen (0-5/HPF); WBC Urine None Seen (0-5/HPF)
--- NOTE | 2022-09-07 18:26 | PT.IIE ---
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 Gait instability Gout Greater trochanteric bursitis of left hip Hemorrhoids Herniated nucleus pulposus, L5-S1, left History of small bowel obstruction Hyperlipidemia Hypertension Iliotibial band syndrome, left leg Myocardial infarction 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) Pelvic somatic dysfunction Piriformis syndrome of left side Polymyalgia rheumatica Poor appetite Sacral region somatic dysfunction Shingles outbreak Small bowel obstruction Somatic dysfunction of lower extremity 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) Trigeminal neuralgia Zoster Physical Therapy Inpatient Evaluation/Re-Eval M1 PT/OT-IP Prior Functional Status Start: 09/07/22 15:37 Freq: NEEDED Status: Active Protocol: Document 09/07/22 18:07 [facility] (Rec: 09/07/22 18:26 [facility] [id number]) Medical Review Prior Functional Status Medical History Reviewed Yes Diet/Fluid Consistency Regular Communication [facility] Mobility and Gait pt reports using a 4WW outside when [place] 1 laps and uses FWW inside but sometimes doesn't use it even though he is supposed to Activities of Daily Living and IADL's Indep w/dressinga nd bathing Prior Functional Level (Other details) history of falls Social History Household Members spouse Living Arrangements House Number of Floors (Floors) Two Floors Number of Stairs To Enter/Railing? 4 PASHA w/2 rails; pt hasn't been in 2nd story recently Home Environment High Toilet,Walk in Shower Home Equipment Front Wheel Walker,Four Wheel Walker,Shower Seat with Backrest,Grab Bars Near Toilet ,Grab Bars In Shower Employment Status Retired M2 PT-IP Current Condition Start: 09/07/22 15:37 Freq: NEEDED Status: Active Protocol: Document 09/07/22 18:07 [facility] (Rec: 09/07/22 18:26 [facility] [id number]) Physical Therapy Current Condition Current Condition Evaluation Date 09/07/22 Treatment Diagnosis PNA M3 PT-IP Subjective Start: 09/07/22 15:37 Freq: NEEDED Status: Active Protocol: Document 09/07/22 18:07 [facility] (Rec: 09/07/22 18:26 [facility] [id number]) Subjective Physical Therapy Visit Type Type Initial Evaluation Visit Start Time 17:05 Visit Stop Time 16:00 Total Visit Minutes 55 Number of [employer] Visits 0 M4 PT-IP Mobility and Gait Start: 09/07/22 15:37 Freq: NEEDED Status: Active Protocol: Document 09/07/22 18:07 [facility] (Rec: 09/07/22 18:26 [facility] [id number]) PT-Bed Mobility Assessment Supine to Sit Supine to Sit Standby Assistance,Bedrails Scooting Scooting to Edge of Bed Standby Assistance PT-Transfer Assessment Sit to and From Stand Sit to and from Stand Minimal Assistance,Use of Upper Extremities Equipment Transfer Assistive Device Gait Belt,Front Wheeled Walker Orthotic/Prosthetic Devices or Brace: No Comments Mobility Comments supine to sit SBA w/use of rail (pt reports he has one at home) and scoot to EOB SBA. Pt had to sit EOB d/t some dizziness which pt reports is typical. Sit to stand once no longer dizzy min A and pt amb w/FWW and CGA to bathroom and sat on toilet CGA w/use of rail and required some assist w/wiping and assist w/donning brief and pt stood w/min A to walk w/FWW to chair. O2 90% after and BP 120/54. Pt left with call light in reach. Gait Assessment Gait Gait Assistance Required: Contact Guard Assist Distance (Feet) 20 Assistive Devices Assistive Device Gait Belt,Front Wheeled Walker Gait Deviations General Gait Pattern Decreased Stride Length, Decreased Feet Clearance, Flexed Trunk Factors Limiting Gait Function Factors Limiting Gait Function Decreased Activity Tolerance, Decreased Strength,Poor Balance PT-Balance Assessment Sitting Balance and Reactions Static Sitting Balance Ability Good Dynamic Sitting Balance Ability Fair Standing Balance and Reactions Static Standing Balance Ability Fair Dynamic Standing Balance Ability Poor Device Used fWW M5 PT-IP Objective Assessments Start: 09/07/22 15:37 Freq: NEEDED Status: Active Protocol: Document 09/07/22 18:07 [facility] (Rec: 09/07/22 18:26 [facility] [id number]) Orientation Orientation/Cognition Level of Alertness Alert Gross Range of Motion Lower Extremity ROM Assessment Within Functional Limits Strength Lower Extremity Strength Assessment Bilaterally Impaired M6 PT-IP Treatment Start: 09/07/22 15:37 Freq: NEEDED Status: Active Protocol: Document 09/07/22 18:07 [facility] (Rec: 09/07/22 18:26 [facility] [id number]) Physical Therapy Treatment Education Education Provided Safety M7 PT-IP Assessment and Plan Start: 09/07/22 15:37 Freq: NEEDED Status: Active Protocol: Document 09/07/22 18:07 [facility] (Rec: 09/07/22 18:26 [facility] [id number]) PT Summary Assessment and Plan Potential Rehabilitation Potential Good Status of Condition at Evaluation Evolving Summary Impairments ROM,Strength,Balance,Bed Mobility,Transfers,Gait, Activity Tolerance Assessment Summary Pt presents after NVD at home and is diagnosed w/PNA and is on 3L of O2 in room. He is fatigued easily with mobility and gets dizzy with looking down and supine to sit which pt reprots is typical for him and he sometimes wears a soft collar because it is thought to be his neck. He is limited in his mobility at this time and still requiring assist. He will require further PT to work towards return back to full strength in order to safely return home as he wishes. Goals Bed Mobility Goal Independent Transfer Goal Independent Gait Goal Independent,Front Wheel Walker ,Four Wheel Walker Gait Distance 150ft Other Goals up/down 4 stairs w/B rails SBA Days to Meet Goals 8 Frequency of Treatment Frequency Of Treatment Once a Day Treatment Plan Physical Therapy Treatment Plan Bed Mobility Training,Transfer Training,Gait Training, Therapeutic Exercise,Balance Retraining,Discharge Planning, Neuromuscular Re-ed Other Recommendations and Next Treatment work on gait tolerance, Focus standing balance, sit to stands Discharge Recommendations PT Discharge Recommendations Home vs SNF Other Discharge Recommendations if pt can progress well with therapy, pt should go home w/ HH but if cont to need assist, pt may require SNF rehab Transportation Needs at Discharge Private Vehicle
--- NOTE | 2022-09-07 19:34 | PC.NURSE ---
Pt arrived from ED at 1140 on stretcher. A&Ox3, confused about date. VSS, sat 88% on 3L O2, increased to 4L. Able to decrease back down to 3L after getting patient settled. Lung sounds diminished, CMS intact, brief in place. Fluids started per MAR, Beryl at bedside. Pt and oriented to room and call light. Bladder scan this afternoon 326mL, no indication for lara catheter.
[2022-09-07] MEDS: cefTRIAXone 1,000 MG in SODIUM CHLORIDE 0.9% 100 ML 200 MG IV (21:30)
[2022-09-08] VITALS (7 sets, daily range): BP systolic 117–145; BP diastolic 55–70; PULSE 65–73; RESP 16–18; TEMP 36.2–37.4; O2SAT 93–95
[2022-09-08] MEDS: DOXYCYCLINE 100 MG in SODIUM CHLORIDE 0.9% 100 ML IV ×2 (01:56→14:50)
[2022-09-08 06:02] LABS: Add Manual Diff / Slide Review NO; Basophils Absolute Auto 0 /uL (0-100); Basophils Percent Auto 0.1 % (0-2); Eosinophils Absolute Auto 0 /uL (0-450); Eosinophils Percent Auto 0.1 % (2-4); Hematocrit 27.1 % (41-53); Hemoglobin 8.9 g/dL (13.5-17.5); Lymphocytes Absolute Auto 1300 /uL (1100-4500); Lymphocytes Percent Auto 8.5 % (25-40); Mean Corpuscular Hemoglobin 28.1 PG (26-34); Mean Corpuscular Volume 85.1 fL (80-100); Monocytes Absolute Auto 1300 /uL (0-900); Monocytes Percent Auto 8.2 % (3-14); Neutrophils Absolute Auto 13100 /uL (1500-7000); Neutrophils Percent Auto 83.1 % (50-75); Platelet Count 178 X10^3/uL (150-400); Red Blood Cell Count 3.18 X10^6/uL (4.5-5.9); Red Cell Distribution Width 14.8 % (11.6-14.8); White Blood Cell Count 15.8 X10^3/uL (4.5-11.0)
[2022-09-08 06:03] LABS: Alanine Aminotransferase 22 IU/L (<50); Alkaline Phosphatase 93 U/L (38-126); Aspartate Aminotransferase 25 IU/L (17-59); BUN Creatinine Ratio 24.1 (6-22); Bilirubin Total 0.4 mg/dL (0.2-1.3); Blood Urea Nitrogen 20 mg/dL (9-20); Calcium 8.1 mg/dL (8.4-10.2); Carbon Dioxide 28 mmol/L (22-32); Chloride 104 mmol/L (98-107); Estimated Glomerular Filt Rate > 60 mL/min (>60); Glucose 131 mg/dL (80-110); HEMOLYSIS < 15 (0-50); Potassium 3.7 mmol/L (3.4-5.1); Sodium 135 mmol/L (137-145)
[2022-09-08] MEDS: DEXTROSE 5%-LACTATED RINGERS 1,000 ML 125 ML IV (06:11)
[2022-09-08] MEDS: FINASTERIDE 5 MG TABLET PO (08:46)
[2022-09-08] MEDS: CITALOPRAM 10 MG TABLET 40 MG PO (08:46)
[2022-09-08] MEDS: atenoloL 50 MG TABLET 100 MG PO (08:47)
[2022-09-08] MEDS: ENOXAPARIN 40 MG/0.4 ML SYRINGE SUBCUT (08:48)
[2022-09-08] MEDS: PANTOPRAZOLE DR 40 MG TABLET PO ×2 (08:49→20:09)
[2022-09-08] MEDS: ACETAMINOPHEN 325 MG TABLET 650 MG PO ×2 (08:49→20:09)
--- NOTE | 2022-09-08 09:44 | P.PN_ITS ---
Subjective Subjective Date Patient Seen: 09/08/22 Time Patient Seen: 09:44 Interval history: 87-year-old male seen this morning. Much more clear from yesterday. Knows he is now at [facility] that he has pneumonia. Does not remember much of our conversation yesterday. He is more alert and aware and awake. Having a little bit of difficulty he says with swallowing. Still very weak. He looks a little more facial pallor. Exam Vital Signs (past 8 hours): - 09/08/22 03:00 09/08/22 08:49 09/08/22 09:02 Temperature 97.7 F 98.6 F 97.2 F L Pulse Rate 73 69 Respiratory Rate 18 18 Blood Pressure 117/55 L 136/65 Pulse Oximetry 94 93 Oxygen Flow Rate 0 Oxygen Delivery Method Room Air Oxygen Flow Rate 0 Narrative Exam Narrative: Gen.: Alert frail elderly 87-year-old gentleman with a mild facial tremor facial pallor HEENT: Pupils equal round and reactive or mucosa is moist neck is supple Cardio: S1-S2 regular rate and rhythm systolic murmur present Respiratory: Upper lung her some rhonchi. Normal respiratory effort Abdomen: Soft mild abdominal distention diffuse tenderness throughout. Extremities: Warm dry perfused no edema Objective Labs Result Diagrams: 09/08/22 05:24 09/08/22 05:24 Labs: Laboratory Results - last 24 hr 09/07/22 09/07/22 09/08/22 09:50 10:17 05:24 WBC 15.8 H RBC 3.18 L Hgb 8.9 L Hct 27.1 L MCV 85.1 MCH 28.1 MCHC 33.0 RDW 14.8 Plt Count 178 Neut % (Auto) 83.1 H Lymph % (Auto) 8.5 L [place] % (Auto) 8.2 Eos % (Auto) 0.1 L Baso % (Auto) 0.1 Neut # (Auto) 32303 H Lymph # (Auto) 1300 [place] # (Auto) 1300 H Eos # (Auto) 0 Baso # (Auto) 0 Sodium Potassium Chloride Carbon Dioxide BUN Creatinine Estimated GFR BUN/Creatinine Ratio Glucose Lactate 2.3 H Calcium Total Bilirubin AST ALT Alkaline Phosphatase Total Protein Albumin Globulin Albumin/Globulin Ratio Urine Color Yellow Urine Appearance Clear Urine pH 7.0 Ur Specific [place] 1.010 Urine Protein 1+ H Urine Glucose (UA) Negative Urine Ketones Negative Urine Occult Blood 3+ H Urine Nitrate Negative Urine Bilirubin Negative Urine Urobilinogen 0.2 Ur Leukocyte Esterase Trace H Urine RBC 1-5/hpf Urine WBC None seen Ur Squamous Epith Cells None seen Urine Bacteria Occasional (0-1) Ur Culture Indicated? Cult not indicated 09/08/22 05:24 WBC RBC Hgb Hct MCV MCH MCHC RDW Plt Count Neut % (Auto) Lymph % (Auto) [place] % (Auto) Eos % (Auto) Baso % (Auto) Neut # (Auto) Lymph # (Auto) [place] # (Auto) Eos # (Auto) Baso # (Auto) Sodium 135 L Potassium 3.7 Chloride 104 Carbon Dioxide 28 BUN 20 Creatinine 0.83 Estimated GFR > 60 BUN/Creatinine Ratio 24.1 H Glucose 131 H Lactate Calcium 8.1 L Total Bilirubin 0.4 AST 25 ALT 22 Alkaline Phosphatase 93 Total Protein 6.0 L Albumin 3.0 L Globulin 3.0 Albumin/Globulin Ratio 1.0 Urine Color Urine Appearance Urine pH Ur Specific [place] Urine Protein Urine Glucose (UA) Urine Ketones Urine Occult Blood Urine Nitrate Urine Bilirubin Urine Urobilinogen Ur Leukocyte Esterase Urine RBC Urine WBC Ur Squamous Epith Cells Urine Bacteria Ur Culture Indicated? 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) Pelvic somatic dysfunction Piriformis syndrome of left side Polymyalgia rheumatica Poor appetite Sacral region somatic dysfunction Shingles outbreak Small bowel obstruction Somatic dysfunction of lower extremity 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 He also had some nausea and vomiting questionable aspiration. Have a swallow evaluation today with patient. We will continue with ceftriaxone and doxycycline. White blood cell counts a little elevated today. Respiratory status is improved and now off oxygen. Mental status is improved as well. Will continue with IV antibiotics for 24 more hours and potentially convert him over to orals. Speech swallow evaluation to make recommendations on diet. I do wonder discussing with the care and discharge planning may need potentially long-term facility for week or 2. Acute metabolic encephalopathy. Patient's confusion and decreased mental status has improved. Patient heading toward baseline today. Think it was probably due to his underlying pneumonia and illness. Acute dehydration resolved IV fluids will be stopped. Acute anemia possibly due to Acute gastrointestinal bleed. Patient has a history of diverticular disease and gastritis. On a proton pump inhibitor had a significant drop in his hemoglobin hematocrit. Possibly delusional due to IV fluid. I am concerned based on his history of gastrointestinal bleeding that he may also have some bleeding will go ahead and guaiac stools today. Recheck iron ferritin vitamin B12 and folic acid. BPH with chronic low-grade obstruction. Continue to monitor urinary output intermittent in and out cath if needed for postvoid residual greater than 500 cc Generalized anxiety disorder continue on citalopram Code status do not resuscitate Disposition plan. Twenty-four more hours of IV antibiotics further workup and evaluation of anemia speech swallow evaluation today. Discussed with the about safe discharge potentially to long-term. Time Spent With Patient Critical Care time: I spent a total of [] minutes of critical care time on this patient's care today; this time is exclusive of procedural time. Quality VTE Deep Vein Thrombosis/Pulmonary Embolism Present on Admission: No
[2022-09-08 10:05] LABS: HEMOLYSIS < 15 (0-50); Iron 26 ug/dL (49-181)
[2022-09-08 10:16] LABS: Percent Iron Saturation 14 % (20-50); Total Iron Binding Capacity 189 ug/dL (261-462); Transferrin 149 mg/dL (206-381)
[2022-09-08 10:45] LABS: Ferritin 62 ng/mL (18-464)
[2022-09-08 11:16] LABS: Vitamin B12 677 pg/mL (239-931)
--- NOTE | 2022-09-08 11:47 | CM.DANOTE ---
DCP: Case received, EMR reviewed and met with patient. Introduced self and role. Was able to obtain some information regarding patient's baseline activity status at home prior to hospitalization. DCP assessment completed with information currently available. Patient is an 87 year old male who admitted yesterday morning to the care of the hospitalist team. PCP: Dr. Perez. Payer: confirmed: [employer] Araya. Patient came to the hospital via ambulance secondary to 2 days of nausea, vomiting, diarrhea, body aches and chills. Patient poor historian. Patient diagnosed with pneumonia. He is currently on oxygen. Met briefly with patient in his room. He did work with [employer] yesterday, weakness noted. Confirmed that he resides here in [place] with spouse, Haily. He does not drive. Mentioned briefly to patient going home with home health versus assisted. Patient would rather go home. Home health can be ordered. P: DCP to continue to follow. Will attempt to meet with spouse later today to discuss options. Candy Howard RN/Wreath Machine Tender Discharge Planning/Care Management CM Discharge Assessment Start: 09/08/22 11:44 Freq: Status: Active Protocol: Document 09/08/22 11:44 (Rec: 09/08/22 11:46 [id number]) Discharge Planning Assessment Assigned Chick Room Supervisor Candy Howard RN/Wreath Machine Tender Advance Directives? Yes Advance Directives on File No History Provided By Patient,Family Member, Significant Other,Medical Record Prior Living Arrangements House Household Members spouse Type of transporation used prior to Relies on Others admit Independent with ADL's Yes Is patient alert and oriented? Yes Needs Assistance With Home Chores / Shopping Caregiver for Another No DME Already Rented / Owned FWW / Walker Patient/Family Preference [facility] Facility,Home with Home Health Comment Patient is hopeful for home, but is weak, and poor historian. Will attempt to meet with spouse later today. Discharge Plan Home with Home Health Transportation Arrangement Spouse Referrals Initiated Prison,Home Health If patient plan is home with home health Yes : Has signed face to face form been completed? If patient plan is SNF: Has PASSR been Yes completed? SNF/HH Preference Will discuss with spouse when she comes to see patient. Has Agency SNF been contacted No Comment Not as of yet Whiteboard Updated in Patient Room with Yes name and ext. # of Chick Room Supervisor Review Status In Process Next Review Type Continued Stay Review
--- NOTE | 2022-09-08 13:02 | ST.IPSCREEN ---
Patient was seated upright in chair with noon meal in front of him when SOLAR FABRICATION TECHNICIAN arrived. He had eaten about 15-20% of macaroni and cheese, about 15% of applesauce, and about 25% of smoothie. Pt reported decreased appetite and stated he has not had a bowel movement since admission at . Pt stated he has always had trouble swallowing due to having a smaller throat. Stated coughing only happens when he takes large swigs of beverages or has a particularly cold drink. Pt reported swallow function is at baseline at this point and stated no concerns for speech. Speech therapy is not indicated at this time as pt's swallow function is at his baseline and pt is independently managing these symptoms with strategies.
--- NOTE | 2022-09-08 13:37 | PT.IPTN ---
Current Diagnoses Pneumonia, unspecified organism (09/07/22) Physical Therapy Treatment Note M2 PT-IP Current Condition Start: 09/07/22 15:37 Freq: NEEDED Status: Active Protocol: Document 09/08/22 13:09 DCW (Rec: 09/08/22 16:20 DCW [id number]) Physical Therapy Current Condition Current Condition Evaluation Date 09/07/22 Treatment Diagnosis PNA M3 PT-IP Subjective Start: 09/07/22 15:37 Freq: NEEDED Status: Active Protocol: Document 09/08/22 13:09 DCW (Rec: 09/08/22 16:20 DCW [id number]) Subjective Physical Therapy Visit Type Type Treatment Note Visit Start Time 13:09 Visit Stop Time 13:37 Total Visit Minutes 28 Notes Pt in recliner upon therapist entrance to room, talking with . Pt agreeable to therapy , and left room. Pt O2 sat remaind at 95% on 3L supplemental O2 via NC at all times during treatment. Pt moving around very well today, feeling much better overall. Number of ASSOCIATE PROFESSOR OF BIOLOGY Visits 0 M4 PT-IP Mobility and Gait Start: 09/07/22 15:37 Freq: NEEDED Status: Active Protocol: Document 09/08/22 13:09 DCW (Rec: 09/08/22 16:20 DCW [id number]) PT-Bed Mobility Assessment Sit to Supine Sit to Supine Standby Assistance Scooting Scooting to Edge of Bed Standby Assistance PT-Transfer Assessment Sit to and From Stand Sit to and from Stand Contact Guard Assistance,Use of Upper Extremities Equipment Transfer Assistive Device Gait Belt,Front Wheeled Walker Orthotic/Prosthetic Devices or Brace: No Comments Mobility Comments Pt able to stand up out of recliner CGA, proper use of UEs and FWW. No complaints of dizziness upon standing. Gait Assessment Gait Gait Assistance Required: Standby Assistance Distance (Feet) 40 Assistive Devices Assistive Device Gait Belt,Front Wheeled Walker Gait Deviations General Gait Pattern Decreased Stride Length, Decreased Feet Clearance PT-Balance Assessment Standing Balance and Reactions Static Standing Balance Ability Good Dynamic Standing Balance Ability Fair Device Used FWW M5 PT-IP Objective Assessments Start: 09/07/22 15:37 Freq: NEEDED Status: Active Protocol: Document 09/07/22 18:07 [facility] (Rec: 09/07/22 18:26 [facility] [id number]) Orientation Orientation/Cognition Level of Alertness Alert Gross Range of Motion Lower Extremity ROM Assessment Within Functional Limits Strength Lower Extremity Strength Assessment Bilaterally Impaired M6 PT-IP Treatment Start: 09/07/22 15:37 Freq: NEEDED Status: Active Protocol: Document 09/08/22 13:09 DCW (Rec: 09/08/22 16:20 DCW [id number]) Physical Therapy Treatment Exercises Exercises Ankle Pumps,Straight Leg Raises Other Treatments Other Treatment Performed LAQ, Marching M7 PT-IP Assessment and Plan Start: 09/07/22 15:37 Freq: NEEDED Status: Active Protocol: Document 09/08/22 13:09 DCW (Rec: 09/08/22 16:20 DCW [id number]) PT Summary Assessment and Plan Summary Impairments ROM,Strength,Balance,Bed Mobility,Transfers,Gait, Activity Tolerance Assessment Summary Pt moving much better today, stable with SBA ambulating in room with FWW. Pt O2 sat remained at 95% with all activity on 3L supplemental O2 . Tolerated standing, sitting, and supine exercises well. Not experiencing dizziness with standing today. Pt feels other than fatigue and requiring supplemental O2, he is nearing his PLOF. If pt continues to show good balance and gait sequencing upon being weaned from O2, will likely be near enough PLOF to safely return home with , likely do well with HH. Goals Bed Mobility Goal Independent Transfer Goal Independent Gait Goal Independent,Front Wheel Walker ,Four Wheel Walker Gait Distance 150ft Other Goals up/down 4 stairs w/B rails SBA Days to Meet Goals 8 Frequency of Treatment Frequency Of Treatment Once a Day Treatment Plan Physical Therapy Treatment Plan Bed Mobility Training,Transfer Training,Gait Training, Therapeutic Exercise,Balance Retraining,Discharge Planning, Neuromuscular Re-ed Other Recommendations and Next Treatment work on gait tolerance, Focus standing balance, sit to stands Discharge Recommendations PT Discharge Recommendations Home,Home Health Transportation Needs at Discharge Private Vehicle
[2022-09-08] MEDS: SODIUM CHLORIDE 0.9% 250 ML 21 ML IV (20:10)
[2022-09-08] MEDS: cefTRIAXone 1,000 MG in SODIUM CHLORIDE 0.9% 100 ML 200 MG IV (20:10)
[2022-09-09] VITALS (7 sets, daily range): BP systolic 140–162; BP diastolic 63–76; PULSE 63–71; RESP 16–18; TEMP 36–36.2; O2SAT 93–99
[2022-09-09] MEDS: DOXYCYCLINE 100 MG in SODIUM CHLORIDE 0.9% 100 ML IV ×2 (02:17→14:42)
[2022-09-09 06:50] LABS: Add Manual Diff / Slide Review NO; Basophils Absolute Auto 0 /uL (0-100); Basophils Percent Auto 0.6 % (0-2); Eosinophils Absolute Auto 0 /uL (0-450); Eosinophils Percent Auto 0.6 % (2-4); Hematocrit 26.6 % (41-53); Lymphocytes Absolute Auto 1100 /uL (1100-4500); Lymphocytes Percent Auto 21.9 % (25-40); Mean Corpuscular Hemoglobin 28.6 PG (26-34); Mean Corpuscular Volume 84.1 fL (80-100); Monocytes Absolute Auto 600 /uL (0-900); Monocytes Percent Auto 13.2 % (3-14); Neutrophils Absolute Auto 3100 /uL (1500-7000); Neutrophils Percent Auto 63.7 % (50-75); Platelet Count 182 X10^3/uL (150-400); Red Blood Cell Count 3.16 X10^6/uL (4.5-5.9); Red Cell Distribution Width 14.5 % (11.6-14.8); White Blood Cell Count 4.9 X10^3/uL (4.5-11.0)
[2022-09-09 07:03] LABS: Alanine Aminotransferase 20 IU/L (<50); Albumin Globulin Ratio 0.9 (1.0-2.8); Alkaline Phosphatase 104 U/L (38-126); Aspartate Aminotransferase 26 IU/L (17-59); BUN Creatinine Ratio 23.3 (6-22); Bilirubin Total 0.5 mg/dL (0.2-1.3); Blood Urea Nitrogen 17 mg/dL (9-20); Calcium 7.8 mg/dL (8.4-10.2); Carbon Dioxide 28 mmol/L (22-32); Chloride 103 mmol/L (98-107); Estimated Glomerular Filt Rate > 60 mL/min (>60); Globulin 3.2 g/dL (1.7-4.1); Glucose 82 mg/dL (80-110); HEMOLYSIS < 15 (0-50); Potassium 3.9 mmol/L (3.4-5.1); Sodium 135 mmol/L (137-145); Total Protein 6.2 g/dL (6.3-8.2)
[2022-09-09] MEDS: atenoloL 50 MG TABLET 100 MG PO (09:01)
[2022-09-09] MEDS: CITALOPRAM 10 MG TABLET 40 MG PO (09:02)
[2022-09-09] MEDS: FINASTERIDE 5 MG TABLET PO (09:02)
[2022-09-09] MEDS: ACETAMINOPHEN 325 MG TABLET 650 MG PO (09:02)
[2022-09-09] MEDS: PANTOPRAZOLE DR 40 MG TABLET PO ×2 (09:03→20:19)
--- NOTE | 2022-09-09 10:54 | P.PN_ITS ---
Subjective Subjective Date Patient Seen: 09/09/22 Interval history: The pt reports overall feeling well today. He questions when he will get to return home. He denies any chest pain or overt SOB, but has not really been out of bed. He has not had a BM since admission, and is concerned about this. He feels the nasal cannula oxygen is quite uncomfortable. Exam Vital Signs (past 8 hours): - 09/09/22 04:01 09/09/22 08:00 Temperature 96.8 F L 97.2 F L Pulse Rate 63 71 Respiratory Rate 18 18 Blood Pressure 144/63 H 140/73 Pulse Oximetry 98 96 Oxygen Flow Rate 3 3 Oxygen Delivery Method Nasal Cannula Oxygen Flow Rate 3 Narrative Exam Narrative: Gen: NAD, lying comfortably in bed, appears well, tremulous CV: RRR, no murmurs Resp: mild crackles bilateral bases, no wheezes, good air movement throughout Abd: soft, nondistended, mild tenderness LLQ without rebound/guarding/rigidity, normoactive bowel sounds Ext: no edema Objective Labs Result Diagrams: 09/09/22 06:15 09/09/22 06:15 Labs: Laboratory Results - last 24 hr 09/08/22 09/09/22 09/09/22 05:24 06:15 06:15 WBC 4.9 D RBC 3.16 L Hgb 9.0 L Hct 26.6 L MCV 84.1 MCH 28.6 MCHC 34.0 RDW 14.5 Plt Count 182 Neut % (Auto) 63.7 Lymph % (Auto) 21.9 L [place] % (Auto) 13.2 Eos % (Auto) 0.6 L Baso % (Auto) 0.6 Neut # (Auto) 3100 Lymph # (Auto) 1100 [place] # (Auto) 600 Eos # (Auto) 0 Baso # (Auto) 0 Sodium 135 L Potassium 3.9 Chloride 103 Carbon Dioxide 28 BUN 17 Creatinine 0.73 Estimated GFR > 60 BUN/Creatinine Ratio 23.3 H Glucose 82 Calcium 7.8 L Total Bilirubin 0.5 AST 26 ALT 20 Alkaline Phosphatase 104 Total Protein 6.2 L Albumin 3.0 L Globulin 3.2 Albumin/Globulin Ratio 0.9 L Vitamin B12 677 Folate 12.0 PFSH Medical History Acute metabolic encephalopathy Bilateral renal cysts BPH w urinary obs/LUTS Cataract Coronary artery disease 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 Gait instability Gout Greater trochanteric bursitis of left hip Hemorrhoids Herniated nucleus pulposus, L5-S1, left History of small bowel obstruction Hyperlipidemia Hypertension Iliotibial band syndrome, left leg Myocardial infarction 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) Pelvic somatic dysfunction Piriformis syndrome of left side Polymyalgia rheumatica Poor appetite Sacral region somatic dysfunction Shingles outbreak Small bowel obstruction Somatic dysfunction of lower extremity 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) Trigeminal neuralgia Zoster Surgical History H/O prostate biopsy H/O total cystectomy History of angioplasty (2001) History of gastrointestinal surgery Hx of inguinal hernia surgery Status post cholecystectomy Family History Father Macular degeneration Sister Hypertension Social History marital status: number of children: 0 household members: spouse Smoking Status: Never smoker alcohol intake: current substance use type: does not use caffeine: Yes Assessment & Plan Assessment & Plan narrative: 87yo man with BPH, gout, CAD, HTN, recurrent small bowel obstruction, and recent GI bleed who presented with nausea, vomiting, and chills, found to have pneumonia in the ED. 1) Pneumonia: Community-acquired vs aspiration. Pt remains on 3L O2, only briefly to room air yesterday. - Continue Doxycycline and Ceftriaxone - Continue oxygen supplementation as needed, hopeful can wean down some later today - Repeat CXR tomorrow if not improving 2) Acute metabolic encephalopathy: Pt seems minimally confused today, although I have not met him before. - Will continue to monitor 3) Acute dehydration: BUN/Cr improved slightly. On mIVF overnight. - Continue to encourage PO intake 4) CAD, HTN: Stable - Continue home Atenolol 5) GERD with hx of GI bleed: Pt with worsening anemia yesterday, likely dilutional. No evidence of active bleed. - Continue PPI 6) Iron deficiency anemia: Stable to improving - Start daily iron supplement 7) Anxiety: Stable - Continue Citalopram 8) BPH: Does not tolerate Flomax. - Continue Finasteride 9) Constipation: - Start Miralax PRN Code: DNR DVT ppx: Lovenox Diet: Cardiac Dispo: Pending improvement in respiratory status, hopeful can wean from oxygen. Possibly to SNF vs home with home health. Time Spent With Patient Critical Care time: I spent a total of [] minutes of critical care time on this patient's care today; this time is exclusive of procedural time. Quality VTE Deep Vein Thrombosis/Pulmonary Embolism Present on Admission: No
[2022-09-09] MEDS: ENOXAPARIN 40 MG/0.4 ML SYRINGE SUBCUT (12:06)
[2022-09-09] MEDS: polyethylene glycoL 3350 17 GM POWD.PACK PO (12:06)
[2022-09-09] MEDS: FERROUS SULFATE 325 MG TABLET PO (12:06)
--- NOTE | 2022-09-09 12:18 | CM.DPC ---
Addendum entered by Candy Howard R.N. 09/09/22 13:41: Did bring in [employer] Book for spouse and gave her some caregiving information, as at times, spouse would like to leave the home for a few hours for shopping. Original Note: DCP Cont: Met with patient and spouse, Haily. Introduced self and role. Had spoken to Dr. Law already, and she mentioned that patient may be ready for discharge tomorrow, he is still on oxygen. He may need home oxygen as well. Wanted to confirm with patient and spouse that home is the plan versus penitentiary. Spouse indicated, she really wants him home, she feels that she can manage, and has the equipment at home. She mentioned that she has used [facility] before, and was pleased with their care. Let her know that this DC Systems Specialist can order [facility] for patient. Called Nora at [facility]. Confirmed that they accept BETO Araya. Gave he patient information, and will request RN, P.T, O.T, rianna aide. Faxed over face sheet, orders, face to face, H&P, today's progress note, and P.T. note. Let Dr. Law know about plan. P: DCP to continue to follow. Plan is home with [facility]. They will just need DC Summary upon discharge. Candy Howard RN/Dairy Powder Mixer Operator
--- NOTE | 2022-09-09 14:18 | PT.IPTN ---
Current Diagnoses Pneumonia, unspecified organism (09/07/22) Physical Therapy Treatment Note M2 PT-IP Current Condition Start: 09/07/22 15:37 Freq: NEEDED Status: Active Protocol: Document 09/08/22 13:09 DCW (Rec: 09/08/22 16:20 DCW [id number]) Physical Therapy Current Condition Current Condition Evaluation Date 09/07/22 Treatment Diagnosis PNA M3 PT-IP Subjective Start: 09/07/22 15:37 Freq: NEEDED Status: Active Protocol: Document 09/09/22 15:11 DLM (Rec: 09/09/22 15:20 DLM [id number]) Subjective Physical Therapy Visit Type Type Treatment Note Visit Start Time 13:45 Visit Stop Time 14:18 Total Visit Minutes 33 Number of SCIENTIFIC RESEARCH ASSOCIATE Visits 0 Physical Therapy Visit Comments Patient Comments He is hoping he does not need to take the oxygen home with him Patient Goals return home M4 PT-IP Mobility and Gait Start: 09/07/22 15:37 Freq: NEEDED Status: Active Protocol: Document 09/09/22 15:11 DLM (Rec: 09/09/22 15:20 DLM [id number]) PT-Bed Mobility Assessment Supine to Sit Supine to Sit Independent,Bedrails Scooting Scooting to Edge of Bed Independent PT-Transfer Assessment Sit to and From Stand Sit to and from Stand Contact Guard Assistance, Minimal Assistance,Use of Upper Extremities Equipment Transfer Assistive Device Gait Belt,Front Wheeled Walker Orthotic/Prosthetic Devices or Brace: No Comments Mobility Comments He is slow getting out of bed but did not need assistance. He sat up on edge of bed and took a few minutes to get his balance. No dizziness standing today. Gait Assessment Gait Gait Assistance Required: Standby Assistance Distance (Feet) 100 Assistive Devices Assistive Device Gait Belt,Front Wheeled Walker Gait Deviations General Gait Pattern Decreased Stride Length,Flexed Trunk Factors Limiting Gait Function Factors Limiting Gait Function Decreased Activity Tolerance, Decreased Strength,Poor Balance Comments Gait Comments he prefers to stay in his room , able to do laps in his room with assistance for his oxygen which is at 3 LPM, pt left up on bedside commode with the nurses aide at the end of this visit PT-Balance Assessment Sitting Balance and Reactions Static Sitting Balance Ability Good Dynamic Sitting Balance Ability Good Standing Balance and Reactions Static Standing Balance Ability Good Dynamic Standing Balance Ability Fair Device Used FWW Functional Assessments Other Functional Tests Performed head/neck tremors present M5 PT-IP Objective Assessments Start: 09/07/22 15:37 Freq: NEEDED Status: Active Protocol: Document 09/07/22 18:07 [facility] (Rec: 09/07/22 18:26 [facility] [id number]) Orientation Orientation/Cognition Level of Alertness Alert Gross Range of Motion Lower Extremity ROM Assessment Within Functional Limits Strength Lower Extremity Strength Assessment Bilaterally Impaired M6 PT-IP Treatment Start: 09/07/22 15:37 Freq: NEEDED Status: Active Protocol: Document 09/09/22 15:11 DLM (Rec: 09/09/22 15:20 DLM [id number]) Physical Therapy Treatment Education Education Provided Safety Other Treatments Other Treatment Performed did not complete exercises due to toileting needs M7 PT-IP Assessment and Plan Start: 09/07/22 15:37 Freq: NEEDED Status: Active Protocol: Document 09/09/22 15:11 DLM (Rec: 09/09/22 15:20 DLM [id number]) PT Summary Assessment and Plan Summary Impairments ROM,Strength,Balance,Bed Mobility,Transfers,Gait, Activity Tolerance Progress Towards Goals Progressing Toward Goals Assessment Summary He shows good progress today. He was able to increase his distance of gait with the FWW. He continues to need 3 LPM of oxygen. He has an intermittent cough. Pt is concerned about needing to have a BM today. Will continue to work towards discharge home with his and home health PT. He needs stair training before going home. Goals Bed Mobility Goal Independent Transfer Goal Independent Gait Goal Independent,Front Wheel Walker ,Four Wheel Walker Gait Distance 150ft Other Goals up/down 4 stairs w/B rails SBA Days to Meet Goals 8 Frequency of Treatment Frequency Of Treatment Once a Day Treatment Plan Physical Therapy Treatment Plan Bed Mobility Training,Transfer Training,Gait Training, Therapeutic Exercise,Balance Retraining,Discharge Planning, Neuromuscular Re-ed Other Recommendations and Next Treatment stair training Focus Precautions Other Precautions hx of falls, he needs to take extra time changing positions to manage dizziness Discharge Recommendations PT Discharge Recommendations Home,Home Health Transportation Needs at Discharge Private Vehicle
[2022-09-09] MEDS: cefTRIAXone 1,000 MG in SODIUM CHLORIDE 0.9% 100 ML 200 MG IV (20:19)
[2022-09-10] MEDS: ACETAMINOPHEN 325 MG TABLET 650 MG PO (00:59)
[2022-09-10] MEDS: DOXYCYCLINE 100 MG in SODIUM CHLORIDE 0.9% 100 ML IV (00:59)
[2022-09-10 01:01] VITALS: BP 155/76; PULSE 69; RESP 20; TEMP 36.9; O2SAT 91
[2022-09-10 05:28] VITALS: BP 153/74; PULSE 71; RESP 17; O2SAT 91
[2022-09-10 07:00] VITALS: O2SAT 91
[2022-09-10 08:03] LABS: Add Manual Diff / Slide Review NO; Basophils Absolute Auto 0 /uL (0-100); Basophils Percent Auto 0.6 % (0-2); Eosinophils Absolute Auto 0 /uL (0-450); Eosinophils Percent Auto 0.8 % (2-4); Hematocrit 29.6 % (41-53); Hemoglobin 10.1 g/dL (13.5-17.5); Lymphocytes Absolute Auto 900 /uL (1100-4500); Lymphocytes Percent Auto 22.9 % (25-40); Mean Corpuscular HGB Conc 34.1 % (30-36); Mean Corpuscular Hemoglobin 28.5 PG (26-34); Mean Corpuscular Volume 83.4 fL (80-100); Monocytes Absolute Auto 700 /uL (0-900); Monocytes Percent Auto 16.9 % (3-14); Neutrophils Absolute Auto 2300 /uL (1500-7000); Neutrophils Percent Auto 58.8 % (50-75); Platelet Count 233 X10^3/uL (150-400); Red Blood Cell Count 3.55 X10^6/uL (4.5-5.9); Red Cell Distribution Width 14.3 % (11.6-14.8); White Blood Cell Count 3.9 X10^3/uL (4.5-11.0)
[2022-09-10 08:08] LABS: INR 1.2 (0.9-1.3); Prothrombin Time 13.9 SECONDS (10.1-12.7)
[2022-09-10 08:13] LABS: BUN Creatinine Ratio 18.1 (6-22); Blood Urea Nitrogen 13 mg/dL (9-20); Calcium 8.5 mg/dL (8.4-10.2); Carbon Dioxide 28 mmol/L (22-32); Chloride 102 mmol/L (98-107); Estimated Glomerular Filt Rate > 60 mL/min (>60); Glucose 88 mg/dL (80-110); HEMOLYSIS < 15 (0-50); Potassium 3.7 mmol/L (3.4-5.1); Sodium 138 mmol/L (137-145)
[2022-09-10 09:09] VITALS: BP 166/82; PULSE 72
[2022-09-10] MEDS: FINASTERIDE 5 MG TABLET PO (09:12)
[2022-09-10] MEDS: FERROUS SULFATE 325 MG TABLET PO (09:13)
[2022-09-10] MEDS: CITALOPRAM 10 MG TABLET 40 MG PO (09:13)
[2022-09-10] MEDS: PANTOPRAZOLE DR 40 MG TABLET PO (09:13)
[2022-09-10] MEDS: ENOXAPARIN 40 MG/0.4 ML SYRINGE SUBCUT (09:13)
[2022-09-10] MEDS: atenoloL 50 MG TABLET 100 MG PO (09:13)
[2022-09-10] MEDS: SODIUM CHLORIDE 0.9% FLUSH 10 ML IV (09:29)
--- NOTE | 2022-09-10 11:29 | P.DS_ITS ---
History of Present Illness History of Present Illness Date Patient Seen: 09/10/22 Chief complaint: NVD Narrative: 87-year-old male with a history of coronary artery disease hypertension hyp erlipidemia recurrent small-bowel obstruction gastrointestinal bleeding and osteoarthritis of spine comes in today because of not feeling well.? Patient was brought in by ambulance.? Patient is a difficult historian.? Called and discussed with his who lives at home with him.? She says that he is had on and off diarrhea for many months.? Which is not unusual.? Over the last 3 or 4 days.? The diet increased more after he was constipated.? She says then he became quite nauseated.? Had acid stomach and began vomiting.? This vomiting has been persistent over the last 3 or 4 days.? Every time she tried to give him something to eat or drink he would immediately throw it back up.? Yesterday he became a little bit more weak she tried to continue to work on hydration and he continued to vomit.? And sitting in the chair yesterday afternoon.? He was weak he she said he was a little bit confused.? She said she is thought she was going to lose him maybe like passing out.? And so she called 911.? She says over the past few days he is had some maybe low-grade chills.? She has not really checked his temperature.? He is had a mild cough.? She says he complains about everything so it is hard to know which complaint is concerning or not. Discharge Providers Provider Date of admission: 09/07/22 04:21 Discharge Date: 09/10/22 Primary care physician: Samson Perez MD Consults: 09/07/22 07:08 Consult to Discharge Planning Routine Comment: Consult to Physical Therapy Evaluate & Treat Comment: Physician Instructions: Evaluate and Treat 09/08/22 09:33 Consult to Speech Therapy Evaluate & Treat Comment: Physician Instructions: Evaluate and treat 09/09/22 12:06 Consult to Home Health Routine Comment: Reason For Exam: Home Health RN, P.T, O.T, bath aide Discharge provider: Dorita Law MD Summary Hospital Course Discharge Diagnosis: Pneumonia:? Community-acquired vs aspiration Acute metabolic encephalopathy Acute dehydration CAD HTN GERD with hx of GI bleed Iron deficiency anemia Anxiety BPH Constipation Hospital Course: The pt was admitted with pneumonia and resultant acute metabolic encephalopathy. He was started on Ceftriaxone and Doxycycline. He initially had an oxygen requirement, which was weaned off during his hosplitalization. His mental status improved and returned to baseline. He initially received IVF for de hydration, which were stopped when he was tolerating PO well. The pt was noted to have iron deficiency anemia, which improved with an iron supplement as well. The pt will discharge home with home health as per PT recommendations. He will continue antibiotics at home to complete a 7 day course. Of note, the pt did report urinary frequency prior to discharge. U/A did not show overt signs of infection, but did note hematuria. Work-up for this can be completed, if necessary, as an outpatient. Status at Discharge Cognitive/behavioral status at discharge: at baseline, confused Overall status at discharge: patient is back to baseline Exam Vital Signs (past 8 hours): - 09/10/22 05:28 09/10/22 09:09 09/10/22 07:00 Pulse Rate 71 72 Respiratory Rate 17 Blood Pressure 153/74 H 166/82 H Pulse Oximetry 91 91 Oxygen Delivery Method Room Air Oxygen Flow Rate 0 Fraction of Inspired Oxygen 32 SaO2/FiO2 Ratio 300 Oxygen Delivery Method Room Air Oxygen Flow Rate 0 Narrative Exam Narrative: Gen: NAD, sitting comfortably in bed, appears well, pleasantly conversant CV: RRR, no murmurs Resp: clear to auscultation bilaterally Abd: soft, nontender, nondistended, normoactive bowel sounds Ext: no edema Objective Labs Result Diagrams: 09/10/22 07:49 09/10/22 07:49 Labs: Laboratory Results - last 24 hr 09/10/22 09/10/22 09/10/22 07:49 07:49 07:49 WBC 3.9 L RBC 3.55 L Hgb 10.1 L Hct 29.6 L MCV 83.4 MCH 28.5 MCHC 34.1 RDW 14.3 Plt Count 233 Neut % (Auto) 58.8 Lymph % (Auto) 22.9 L [place] % (Auto) 16.9 H Eos % (Auto) 0.8 L Baso % (Auto) 0.6 Neut # (Auto) 2300 Lymph # (Auto) 900 L [place] # (Auto) 700 Eos # (Auto) 0 Baso # (Auto) 0 PT 13.9 H INR 1.2 Sodium 138 Potassium 3.7 Chloride 102 Carbon Dioxide 28 BUN 13 Creatinine 0.72 Estimated GFR > 60 BUN/Creatinine Ratio 18.1 Glucose 88 Calcium 8.5 PFSH Medical History Acute metabolic encephalopathy Bilateral renal cysts BPH w urinary obs/LUTS Cataract Coronary artery disease 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 Gait instability Gout Greater trochanteric bursitis of left hip Hemorrhoids Herniated nucleus pulposus, L5-S1, left History of small bowel obstruction Hyperlipidemia Hypertension Iliotibial band syndrome, left leg Myocardial infarction 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) Pelvic somatic dysfunction Piriformis syndrome of left side Polymyalgia rheumatica Poor appetite Sacral region somatic dysfunction Shingles outbreak Small bowel obstruction Somatic dysfunction of lower extremity 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) Trigeminal neuralgia Zoster Surgical History H/O prostate biopsy H/O total cystectomy History of angioplasty (2001) History of gastrointestinal surgery Hx of inguinal hernia surgery Status post cholecystectomy Family History Father Macular degeneration Sister Hypertension Social History marital status: number of children: 0 household members: spouse Smoking Status: Never smoker alcohol intake: current substance use type: does not use caffeine: Yes Discharge Plan Discharge Plan Patient Disposition: Home Health Service Discharge orders & Medications Prescriptions: New amoxicillin-pot clavulanate [Augmentin] 500-125 mg tablet 1 tab PO BID Qty: 5 0RF doxycycline hyclate 100 mg capsule 100 mg PO BID Qty: 5 0RF ferrous sulfate 325 mg (65 mg iron) Tablet 325 mg PO DAILY Qty: 30 0RF Continued citalopram 40 mg tablet 40 mg PO DAILY Qty: 90 3RF finasteride 5 mg tablet 5 mg PO DAILY Qty: 90 3RF atenolol 50 mg tablet 100 mg PO DAILY Qty: 180 3RF pantoprazole [Protonix] 40 mg tablet,delayed release (DR/EC) 40 mg PO BID Qty: 180 3RF Follow up/Referrals: Samson Perez MD [Primary Care Provider] - 1 Week Diet/Activity/Treatments Diet: Diet as Tolerated Skin/Wound/Dressing Care Report to your healthcare provider any signs of infection, such as:: chills, fever Visit Report/Discharge Packet Instructions: DI for Aspiration Pneumonia Visit Report Forms: Patient Portal/API, Stroke Signs & Symptoms Discharge Data Primary Care Provider: Samson Perez Quality VTE Deep Vein Thrombosis/Pulmonary Embolism Present on Admission: No
[2022-09-10] MEDS: DOCUSATE 100 MG CAPSULE PO (12:01)
[2022-09-10] MEDS: polyethylene glycoL 3350 17 GM POWD.PACK PO (12:02)
[2022-09-10 12:23] LABS: Appearance Urine UA CLOUDY; Bilirubin Urine UA NEGATIVE (NEGATIVE); Color Urine UA YELLOW; Glucose Urine UA NEGATIVE (Negative); Ketones Urine UA TRACE (NEGATIVE); Leukocyte Esterase Urine UA NEGATIVE (NEGATIVE); Nitrite Urine UA NEGATIVE (Negative); Occult Blood Urine UA 3+ (Negative); Protein Urine UA TRACE (Negative); Specific Gravity Urine UA 1.015 (1.000-1.035); Urobilinogen Urine UA 0.2 E.U./dL (0.2)
[2022-09-10 12:31] LABS: Bacteria Urine None Seen; Culture Indicated Urine Cult Not Indicated; RBC Urine >100/HPF (0-5/HPF); Squamous Epithelial Cell Urine 0-1 /HPF (0-5/HPF); WBC Urine 0-1/HPF (0-5/HPF)
--- NOTE | 2022-09-10 13:23 | PT.IPTN ---
Current Diagnoses Pneumonia, unspecified organism (09/07/22) Physical Therapy Treatment Note M2 PT-IP Current Condition Start: 09/07/22 15:37 Freq: NEEDED Status: Active Protocol: Document 09/08/22 13:09 DCW (Rec: 09/08/22 16:20 DCW [id number]) Physical Therapy Current Condition Current Condition Evaluation Date 09/07/22 Treatment Diagnosis PNA M3 PT-IP Subjective Start: 09/07/22 15:37 Freq: NEEDED Status: Active Protocol: Document 09/10/22 13:23 AW (Rec: 09/10/22 14:15 AW [id number]) Subjective Physical Therapy Visit Type Type Treatment Note Visit Start Time 13:03 Visit Stop Time 13:23 Total Visit Minutes 20 Number of PULMONOLOGIST/INTENSIVIST Visits 0 Physical Therapy Visit Comments Patient Comments Pt is feeling more energetic than he did earlier today but still feels easily fatigued. Patient Goals return home M4 PT-IP Mobility and Gait Start: 09/07/22 15:37 Freq: NEEDED Status: Active Protocol: Document 09/10/22 13:23 AW (Rec: 09/10/22 14:15 AW [id number]) PT-Bed Mobility Assessment Supine to Sit Supine to Sit Standby Assistance,Bedrails Scooting Scooting to Edge of Bed Independent PT-Transfer Assessment Sit to and From Stand Sit to and from Stand Contact Guard Assistance,Use of Upper Extremities Equipment Transfer Assistive Device Gait Belt,Front Wheeled Walker Orthotic/Prosthetic Devices or Brace: No Transfers Transfer Destination Chair Transfer Technique ambulated with FWW Transfer Ability Level of Assist Contact Guard Assistance,Use of Upper Extremities Comments Mobility Comments Pt completed supine to sit slowly but without assist. He stood CGA/min A and ambulated in the halls a total of 90 feet with FWW SBA. On return to the room, he transferred to the chair. He was left with call light in reach and chair alarm on for safety. Gait Assessment Gait Gait Assistance Required: Standby Assistance Distance (Feet) 90 Assistive Devices Assistive Device Gait Belt,Front Wheeled Walker Gait Deviations General Gait Pattern Decreased Stride Length, Decreased Feet Clearance, Flexed Trunk Factors Limiting Gait Function Factors Limiting Gait Function Decreased Activity Tolerance, Decreased Strength,Poor Balance Comments Gait Comments Pt agreed to leave the room today and walked 90 feet with FWW SBA. He denied dizziness today but had quick approach to fatigue. Stair Climbing Assessment Comments Stair Climbing Comments Pt declined stair training this date due to fatigue. PT-Balance Assessment Sitting Balance and Reactions Static Sitting Balance Ability Good Dynamic Sitting Balance Ability Good Standing Balance and Reactions Static Standing Balance Ability Good Dynamic Standing Balance Ability Fair Device Used FWW Functional Assessments Other Functional Tests Performed head/neck tremors present M5 PT-IP Objective Assessments Start: 09/07/22 15:37 Freq: NEEDED Status: Active Protocol: Document 09/07/22 18:07 [facility] (Rec: 09/07/22 18:26 [facility] [id number]) Orientation Orientation/Cognition Level of Alertness Alert Gross Range of Motion Lower Extremity ROM Assessment Within Functional Limits Strength Lower Extremity Strength Assessment Bilaterally Impaired M6 PT-IP Treatment Start: 09/07/22 15:37 Freq: NEEDED Status: Active Protocol: Document 09/10/22 13:23 AW (Rec: 09/10/22 14:15 AW [id number]) Physical Therapy Treatment Exercises Exercises Ankle Pumps,Heel Slides, Straight Leg Raises Education Education Provided Safety Other Treatments Other Treatment Performed exercise performed pre- mobility M7 PT-IP Assessment and Plan Start: 09/07/22 15:37 Freq: NEEDED Status: Active Protocol: Document 09/10/22 13:23 AW (Rec: 09/10/22 14:15 AW [id number]) PT Summary Assessment and Plan Summary Impairments ROM,Strength,Balance,Bed Mobility,Transfers,Gait, Activity Tolerance Progress Towards Goals Progressing Toward Goals,Slow Progress due to Activity Tolerance Assessment Summary Pt unable to progress much from yesterday due to fatigue. He is ambulating without oxygen, however, and SpO2 was stable 90-93% throughout treatment. Will continue to work towards discharge home with his and home health PT. He needs stair training before going home. Goals Bed Mobility Goal Independent Transfer Goal Independent Gait Goal Independent,Front Wheel Walker ,Four Wheel Walker Gait Distance 150ft Other Goals up/down 4 stairs w/B rails SBA Days to Meet Goals 8 Frequency of Treatment Frequency Of Treatment Once a Day Treatment Plan Physical Therapy Treatment Plan Bed Mobility Training,Transfer Training,Gait Training, Therapeutic Exercise,Balance Retraining,Discharge Planning, Neuromuscular Re-ed Other Recommendations and Next Treatment stair training Focus Precautions Other Precautions hx of falls, he needs to take extra time changing positions to manage dizziness Discharge Recommendations PT Discharge Recommendations Home with Assistance,Home Health Transportation Needs at Discharge Private Vehicle
--- NOTE | 2022-09-10 14:24 | CM.DPNOTE ---
DCP continued: CM called [facility] to let them know that the patient is DC home today and that CM sent Face sheet, F2F and DC summary to them VIA right fax today. [facility] confirmed they had information and that they accept the patient and will reach out tomorrow to set up HH intake. Shellie Adan RNhelp desk manager
--- NOTE | 2022-09-10 16:28 | PC.NURSE ---
15:19 Pt dressed and ready for d/c home to be transported via pov by . Pt IV removed and no tele. Pt denies having medications held at the pharmacy here and denies having valuables being held in the safe here. Discussed d/c instructions with pt and and answered questions. Provided pt education about fall prevention, pneumonia, amoxicillin, doxycycline and stroke s/s. Educated pt about hydrating with water and walking around to help with constipation. Pt transported out by RN via wheelchair with all belongings.
== END 2022-09-10 15:19 | disposition home health service (06) | DRG 177 ==
LOC: ED 09-07 01:44 → AC 09-07 04:22
PROVIDERS: Emergency Medicine; Family Medicine; Admitting Provider Family Medicine; Emergency Provider Emergency Medicine; PCP Family Medicine; Referring Provider Emergency Medicine; Visit Provider Family Medicine
DX: J69.0 Pneumonitis due to inhalation of food and vomit (principal); G93.41 Metabolic encephalopathy; N13.8 Other obstructive and reflux uropathy; E86.0 Dehydration; I25.10 Atherosclerotic heart disease of native coronary artery without angina pectoris; I10 Essential (primary) hypertension; K21.9 Gastro-esophageal reflux disease without esophagitis; F41.1 Generalized anxiety disorder; N40.1 Benign prostatic hyperplasia with lower urinary tract symptoms; D50.9 Iron deficiency anemia, unspecified; K59.00 Constipation, unspecified; Z66 Do not resuscitate; Z98.61 Coronary angioplasty status; Z20.822 Contact with and (suspected) exposure to COVID-19
CPT/HCPCS: 36415; 51798; 71260; 74177; 80048; 80053; 81001; 82550; 82607; 82728; 82746; 83540; 83550; 83605; 84145; 84484; 85007; 85025; 85610; 87040; 87633; 93005; 94760; 96365; 96367; 96375; 97110; 97116; 97162; 97530; 99223; 99232; 99238; 99284; 99285; J0696; J1650; J2405; J7121; Q9967

== ENCOUNTER → 2024-04-17 14:10 | Outpatient (CLI) | payer MEDICARE, SELFPAY ==
[2024-04-11 09:02] VITALS: BMI 23.1
[2024-04-17 14:50] LABS: Hematocrit 36.1 % (41-53); Hemoglobin 12.1 g/dL (13.5-17.5); Mean Corpuscular HGB Conc 33.4 % (30-36); Mean Corpuscular Hemoglobin 26.9 PG (26-34); Mean Corpuscular Volume 80.4 fL (80-100); Platelet Count 193 X10^3/uL (150-400); Red Blood Cell Count 4.49 X10^6/uL (4.5-5.9); Red Cell Distribution Width 16.5 % (11.6-14.8); White Blood Cell Count 7.4 X10^3/uL (4.5-11.0)
[2024-04-17 14:51] LABS: Add Manual Diff / Slide Review YES
[2024-04-17 15:00] LABS: Alanine Aminotransferase 14 IU/L (<50); Albumin 4.5 g/dL (3.5-5.0); Albumin Globulin Ratio 1.3 (1.0-2.8); Alkaline Phosphatase 87 U/L (38-126); Aspartate Aminotransferase 23 IU/L (17-59); BUN Creatinine Ratio 15.9 (6-22); Bilirubin Total 0.5 mg/dL (0.2-1.3); Blood Urea Nitrogen 17 mg/dL (9-20); Calcium 8.7 mg/dL (8.4-10.2); Carbon Dioxide 28 mmol/L (22-32); Chloride 107 mmol/L (98-107); Estimated Glomerular Filt Rate > 60 mL/min (>60); Globulin 3.6 g/dL (1.7-4.1); Glucose 98 mg/dL (80-110); HEMOLYSIS < 15 (0-50); Potassium 4.9 mmol/L (3.4-5.1); Sodium 139 mmol/L (137-145); Total Protein 8.1 g/dL (6.3-8.2)
[2024-04-17 15:16] LABS: Neutrophils Absolute Manual 4736 /uL (3000-5900); RBC Morphology Normal Morphology; Total Cells Counted 100
[2024-04-17 15:29] LABS: TSH w/ Reflex to FT4 2.98 uIU/mL (0.47-4.68)
== END ==
PROVIDERS: PCP Family Medicine; Referring Provider Family Medicine; Visit Provider Family Medicine
DX: I10 Essential (primary) hypertension (principal); R26.81 Unsteadiness on feet; M16.9 Osteoarthritis of hip, unspecified
CPT/HCPCS: 36415; 80053; 84443; 85007; 85025

== ENCOUNTER 2024-06-01 21:08 | Emergency (ER) | payer MEDICARE, SELFPAY ==
[2024-04-11 09:02] VITALS: BMI 23.1
[2024-06-01] VITALS (13 sets, daily range): BP systolic 116–160; BP diastolic 56–64; PULSE 64–69; RESP 6–27; TEMP 36.7; O2SAT 92–96; BMI 22.4
--- NOTE | 2024-06-01 21:28 | DI.RAD.S_ITS ---
PROCEDURE: XR CHEST 1V INDICATIONS: chest pain TECHNIQUE: One view of the chest was acquired. COMPARISON: [facility], CR, XR CHEST 1V, 02/16/2022, 10:39. [facility], CR, XR CHEST 1V, 09/02/2020, 11:39. FINDINGS: Surgical changes and devices: None. Lungs and pleura: Patchy right lateral/basilar airspace opacity. Streaky left basilar atelectasis. Mediastinum: Mediastinal contours appear normal. Heart size is normal. Bones and chest wall: No suspicious bony lesions. Overlying soft tissues appear unremarkable. IMPRESSION: Patchy right, lateral airspace opacity concerning for developing infection. Dictated by: Marshal Casarez M.D. on 06/01/2024 at 21:46 Approved by: Marshal Casarez M.D. on 06/01/2024 at 21:46
--- NOTE | 2024-06-01 21:30 | DI.CT.S_ITS ---
PROCEDURE: CT HEAD/BRAIN WO CON INDICATIONS: syncope, possible Covid TECHNIQUE: Noncontrast 4.5 mm thick angled axial sections acquired from the foramen magnum to the vertex, with coronal and sagittal reformats. For radiation dose reduction, the following was used: automated exposure control, adjustment of mA and/or kV according to patient size. COMPARISON: [facility], CT, CT HEAD/BRAIN WO CON, 07/12/2021, 18:48. FINDINGS: Image quality: Diagnostic. CSF spaces: Basal cisterns are patent. No extra-axial fluid collections. The ventricles are symmetric in size and shape. Brain: No intracranial bleeds or masses. There is cerebral volume loss for age, with resultant ventricular and sulcal prominence. There are periventricular and deep white matter chronic small vessel ischemic changes. There is intracranial internal carotid artery atherosclerosis. Skull and face: Calvarium and visualized facial bones appear intact, without suspicious lesions. Sinuses: Visualized sinuses and mastoids are clear. IMPRESSION: No acute intracranial pathology. Dictated by: Marshal Casarez M.D. on 06/01/2024 at 21:49 Approved by: Marshal Casarez M.D. on 06/01/2024 at 21:52
[2024-06-01 21:36] LABS: INR 1.3 (0.9-1.3); Prothrombin Time 14.6 SECONDS (9.4-12.5)
[2024-06-01 21:38] LABS: PTT Partial Thromboplastin Tim 33 SECONDS (25.1-36.5)
[2024-06-01 21:39] LABS: Add Manual Diff / Slide Review NO; Basophils Absolute Auto 0 /uL (0-100); Basophils Percent Auto 0.3 % (0-2); Eosinophils Absolute Auto 100 /uL (0-450); Eosinophils Percent Auto 1.9 % (2-4); Hemoglobin 11.9 g/dL (13.5-17.5); Lymphocytes Absolute Auto 1100 /uL (1100-4500); Lymphocytes Percent Auto 17.9 % (25-40); Mean Corpuscular HGB Conc 34.1 % (30-36); Mean Corpuscular Hemoglobin 27.5 PG (26-34); Mean Corpuscular Volume 80.6 fL (80-100); Monocytes Absolute Auto 700 /uL (0-900); Monocytes Percent Auto 11.2 % (3-14); Neutrophils Absolute Auto 4200 /uL (1500-7000); Neutrophils Percent Auto 68.7 % (50-75); Platelet Count 131 X10^3/uL (150-400); Red Blood Cell Count 4.34 X10^6/uL (4.5-5.9); Red Cell Distribution Width 17.4 % (11.6-14.8); White Blood Cell Count 6.1 X10^3/uL (4.5-11.0)
[2024-06-01 21:41] LABS: Alanine Aminotransferase 17 IU/L (<50); Albumin 4.2 g/dL (3.5-5.0); Albumin Globulin Ratio 1.2 (1.0-2.8); Alkaline Phosphatase 87 U/L (38-126); Aspartate Aminotransferase 24 IU/L (17-59); BUN Creatinine Ratio 18.6 (6-22); Bilirubin Total 0.6 mg/dL (0.2-1.3); Blood Urea Nitrogen 18 mg/dL (9-20); Carbon Dioxide 26 mmol/L (22-32); Chloride 105 mmol/L (98-107); Creatine Kinase 30 U/L (55-170); Estimated Glomerular Filt Rate > 60 mL/min (>60); Globulin 3.6 g/dL (1.7-4.1); Glucose 184 mg/dL (80-110); HEMOLYSIS < 15 (0-50); Lipase 67 U/L (23-300); Magnesium 2.2 mg/dL (1.6-2.3); Potassium 4.5 mmol/L (3.4-5.1); Sodium 136 mmol/L (137-145); Total Protein 7.8 g/dL (6.3-8.2)
[2024-06-01] MEDS: SODIUM CHLORIDE 0.9% 1,000 ML 500 ML IV (21:49)
[2024-06-01 21:52] LABS: NT-proBNP (BNP-Adult 18+) 625 pg/mL (<450); Troponin I < 0.012 ng/mL (0.01-0.034)
--- NOTE | 2024-06-01 21:54 | EKG_ITS ---
[place] [address] [address] [place] [id number] Test Date: 2024-06-01 Pat Name: Mark Stevens Jr Department: [facility] Room: Gender: Male Computer Operations Analyst: : 1935 Requested By: Order Number: [id number] Reading MD: Girma Ewing MD Measurements Intervals [place] Rate: 69 P: 72 AK: 328 QRS: -48 QRSD: 124 T: -38 QT: 438 QTc: 469 Interpretive Statements Sinus rhythm with 1st degree AV block Left axis deviation Right bundle branch block NO SIGNIFICANT CHANGE FROM PRIOR TRACING Electronically Signed On 06-02-2024 8:19:22 PDT by Girma Ewing MD
--- NOTE | 2024-06-01 21:57 | ED.WEAKNESS ---
HPI - Weakness General Chief complaint: Weakness Stated complaint: Covid + Weakness Time Seen by Provider: 06/01/24 21:26 Source: EMS Mode of arrival: EMS History of Present Illness HPI Narrative: 88-year-old male lives at home in [facility] with his who was recently diagnosed yesterday with COVID who had been coughing, patient felt quite feverish today, passed out, called their neighbor informed patient felt quite warm, no temperature apparently taken, ice packs apparently applied by neighbor, no loss of breath, no loss of pulse, no other interventions done at scene, transported here for further evaluation. Recovered. On arrival he has generalized weakness, but no focal weakness to face arm or leg. No shaking or seizure activity. No incontinence of urine or stool. He denies drug alcohol use. He has not been coughing himself, though he did feel feverish, and is aware his has recent cough and new recent diagnosis of COVID. He did have COVID vaccination early in the pandemic, believes his last COVID booster was last year. Denies known liver disease or kidney disease. He does not recall taking any Tylenol or Motrin prior to arrival. Related Data Home Medications Medication Instructions Recorded Confirmed multivitamin (Multiple Vitamins 1 tab PO DAILY 04/17/24 04/17/24 tablet) Previous Rx's Medication Instructions Recorded ferrous sulfate 325 mg (65 mg 325 mg PO DAILY #30 tabs 09/10/22 iron) tablet finasteride 5 mg tablet 5 mg PO DAILY #90 tabs 03/28/23 citalopram 40 mg tablet 40 mg PO DAILY #90 tabs 10/04/23 pantoprazole 40 mg tablet,delayed 40 mg PO BID #180 tabs 12/13/23 release atenolol 50 mg tablet 100 mg (2 x 50 mg) PO DAILY #180 01/14/24 tabs nirmatrelvir 300 mg (150 mg See Rx Instructions PO .COMPLEX 06/01/24 x2)-ritonavir 100 mg tablet,dose #30 ea pack (Paxlovid) azithromycin 500 mg tablet 500 mg PO DAILY 3 days #3 tabs 06/02/24 Allergies Allergy/AdvReac Type Severity Reaction Status Date / Time carbamazepine [CARBAMAZEPINE] Allergy Mild HIVES Verified 04/17/24 13:32 adhesive tape AdvReac Intermediate Blister Verified 04/17/24 13:32 codeine [CODEINE] AdvReac Mild CONSTIPATIO Verified 04/17/24 13:32 N tamsulosin [TAMSULOSIN] AdvReac Mild REAL BAD Verified 04/17/24 13:32 COUGH morphine [MORPHINE] AdvReac Unknown severe Verified 04/17/24 13:32 nausea/vomiting Review of Systems Review of Systems Narrative: see HPI 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) Pelvic somatic dysfunction Piriformis syndrome of left side Polymyalgia rheumatica Poor appetite Sacral region somatic dysfunction Shingles outbreak Small bowel obstruction Somatic dysfunction of lower extremity 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) Trigeminal neuralgia Zoster Surgical History H/O prostate biopsy H/O total cystectomy History of angioplasty (2001) History of gastrointestinal surgery Hx of inguinal hernia surgery Status post cholecystectomy Family History Father Macular degeneration Sister Hypertension Social History marital status: number of children: 0 household members: spouse Smoking Status: Never smoker alcohol intake: current substance use type: does not use caffeine: Yes Smoking Status: Never smoker alcohol intake frequency: a few times a week Substance Use Type: does not use Exam Narrative Exam Narrative: GENERAL: Well-developed patient, in mild distress. HEAD: Atraumatic. Normocephalic. EYES: Pupils equal round and reactive. Extraocular motions intact. No scleral icterus. No injection or drainage. ENT: Nose without bleeding, purulent drainage. Throat without erythema, tonsillar hypertrophy or exudate. Airway patent. NECK: Trachea midline. Non tender CARDIOVASCULAR: Regular rate and rhythm without murmurs, gallops, or rubs. RESPIRATORY: Clear to auscultation. Breath sounds equal bilaterally. No wheezes, rales, or rhonchi. GASTROINTESTINAL: Abdomen soft, non-tender, nondistended. EXTREMITIES: No edema or joint tenderness. BACK: Nontender without deformity or crepitance. No flank tenderness. NEURO: AOx3. Nonfocal neuro exam SKIN: No rash or erythema of visible areas Initial Vital Signs Initial Vital Signs: Vital Signs Temperature 98.1 F 06/01/24 21:07 Pulse Rate 69 06/01/24 21:07 Respiratory Rate 16 06/01/24 21:07 Blood Pressure 141/63 H 06/01/24 21:07 Pulse Oximetry 94 06/01/24 21:07 Oxygen Delivery Method Room Air 06/01/24 21:07 Course Orders Ordered: ED Orders 06/01/24 21:00 Complete Blood Count AUTO DIFF Stat Comprehensive Metabolic Panel Stat Lipase Stat Magnesium Stat NT-proBNP (BNP-Adult 18+) Stat PTT Partial Thromboplastin Justin Stat Prothrombin Time INR Stat Troponin & CK Cardiac Panel Stat 06/01/24 21:16 Respiratory Panel (Film Array) Stat 06/01/24 21:28 XR chest 1V Stat EKG-12 Lead Stat 06/01/24 21:30 CT head/brain wo con Stat 06/01/24 23:10 Troponin I Stat Discontinued Medications Azithromycin (Azithromycin 250 Mg Tablet) 500 mg PO NOW ONE Stop: 06/01/24 23:57 Last Admin: 06/02/24 00:07 Dose: 500 mg Documented By: STEPHANI Sodium Chloride (Normal Saline 0.9%) 1,000 mls @ 500 mls/hr IV BOLUS ONE Stop: 06/01/24 23:26 Last Infusion: 06/02/24 00:00 Dose: Infused Documented By: Admin: 06/01/24 21:49 Dose: 500 mls/hr Documented By: DAVIN Vital Signs Vital signs: Vital Signs - 8 hr 06/01/24 21:07 06/01/24 21:11 06/01/24 21:30 Temperature 98.1 F Pulse Rate 69 69 Respiratory Rate 16 Blood Pressure 141/63 H 123/59 L Pulse Oximetry 94 94 Oxygen Delivery Method Room Air 06/01/24 21:30 06/01/24 21:45 06/01/24 21:45 Temperature Pulse Rate 67 69 Respiratory Rate 22 6 L Blood Pressure 116/59 L Pulse Oximetry 94 94 Oxygen Delivery Method 06/01/24 22:00 06/01/24 22:00 06/01/24 22:15 Temperature Pulse Rate 67 Respiratory Rate 25 H Blood Pressure 117/56 L 125/59 L Pulse Oximetry 94 Oxygen Delivery Method 06/01/24 22:15 06/01/24 22:30 06/01/24 22:30 Temperature Pulse Rate 66 65 Respiratory Rate 27 H 24 Blood Pressure 129/60 Pulse Oximetry 94 95 Oxygen Delivery Method 06/01/24 22:45 06/01/24 22:45 06/01/24 23:00 Temperature Pulse Rate 65 65 Respiratory Rate 21 21 Blood Pressure 129/60 Pulse Oximetry 96 96 Oxygen Delivery Method 06/01/24 23:15 06/01/24 23:15 06/01/24 23:30 Temperature Pulse Rate 64 Respiratory Rate 18 Blood Pressure 144/61 H 128/56 L Pulse Oximetry 95 Oxygen Delivery Method 06/01/24 23:30 06/01/24 23:45 06/01/24 23:45 Temperature Pulse Rate 64 65 Respiratory Rate 20 21 Blood Pressure 116/57 L Pulse Oximetry 95 95 Oxygen Delivery Method 06/01/24 23:57 06/01/24 23:57 06/02/24 00:00 Temperature Pulse Rate 64 64 Respiratory Rate 15 18 Blood Pressure 160/64 H Pulse Oximetry 92 98 Oxygen Delivery Method 06/02/24 00:01 06/02/24 00:01 06/02/24 00:15 Temperature Pulse Rate 63 Respiratory Rate 18 Blood Pressure 142/62 H 134/63 Pulse Oximetry 97 Oxygen Delivery Method 06/02/24 00:15 06/02/24 00:30 06/02/24 00:30 Temperature Pulse Rate 63 66 Respiratory Rate 18 26 H Blood Pressure 145/63 H Pulse Oximetry 95 95 Oxygen Delivery Method MDM - Weakness Lab Data Attestation: I reviewed the patient's lab results. 06/01/24 21:00 06/01/24 21:00 Labs: Lab Results 06/01/24 06/01/24 06/01/24 Range/Units 21:00 21:16 23:10 WBC 6.1 (4.5-11.0) X10^3/uL RBC 4.34 L (4.5-5.9) X10^6/uL Hgb 11.9 L (13.5-17.5) g/dL Hct 35.0 L (41-53) % MCV 80.6 (80-100) fL MCH 27.5 (26-34) PG MCHC 34.1 (30-36) % RDW 17.4 H (11.6-14.8) % Plt Count 131 L (150-400) X10^3/uL Neut % (Auto) 68.7 (50-75) % Lymph % (Auto) 17.9 L (25-40) % [place] % (Auto) 11.2 (3-14) % Eos % (Auto) 1.9 L (2-4) % Baso % (Auto) 0.3 (0-2) % Neut # (Auto) 4200 (2168-9666) /uL Lymph # (Auto) 1100 (6433-4261) /uL [place] # (Auto) 700 (0-900) /uL Eos # (Auto) 100 (0-450) /uL Baso # (Auto) 0 (0-100) /uL PT 14.6 H (9.4-12.5) SECONDS INR 1.3 (0.9-1.3) APTT 33 (25.1-36.5) SECONDS Sodium 136 L (137-145) mmol/L Potassium 4.5 (3.4-5.1) mmol/L Chloride 105 (98-107) mmol/L Carbon Dioxide 26 (22-32) mmol/L BUN 18 (9-20) mg/dL Creatinine 0.97 (0.66-1.25) mg/dL Estimated GFR > 60 (>60) mL/min BUN/Creatinine Ratio 18.6 (6-22) Glucose 184 H (80-110) mg/dL Calcium 9.0 (8.4-10.2) mg/dL Magnesium 2.2 (1.6-2.3) mg/dL Total Bilirubin 0.6 (0.2-1.3) mg/dL AST 24 (17-59) IU/L ALT 17 (<50) IU/L Alkaline Phosphatase 87 (38-126) U/L Total Creatine Kinase 30 L (55-170) U/L Troponin I < 0.012 < 0.012 (0.01-0.034) ng/mL NT-Pro-B Natriuret Pep 625 H (<450) pg/mL Total Protein 7.8 (6.3-8.2) g/dL Albumin 4.2 (3.5-5.0) g/dL Globulin 3.6 (1.7-4.1) g/dL Albumin/Globulin Ratio 1.2 (1.0-2.8) Lipase 67 (23-300) U/L Chlamy pneumoniae PCR Not detected (Not Detect) Adenovirus (PCR) Not detected (Not Detect) B.parapertussis DNA PCR Not detected (Not Detecte) Coronavirus OC43 (PCR) Not detected (Not Detect) Coronavirus HKU1 (PCR) Not detected (Not Detect) Coronavirus 229E (PCR) Not detected (Not Detect) SARS-CoV-2 (PCR) Detected H (Not Detecte) Coronavirus NL63 (PCR) Not detected (Not Detect) Human Metapneumovir PCR Not detected (Not Detect) Influenza Type A (PCR) Not detected (Not Detect) Influenza Type B (PCR) Not detected (Not Detect) M. pneumoniae (PCR) Not detected (Not Detect) Parainfluenza 1 (PCR) Not detected (Not Detect) Parainfluenza 2 (PCR) Not detected (Not Detect) Parainfluenza 3 (PCR) Not detected (Not Detect) Parainfluenza 4 (PCR) Not detected (Not Detect) RSV (PCR) Not detected (Not Detect) Entero/Rhino (PCR) Not detected (Not Detect) ECG Data Attestation: I personally reviewed and interpreted this ECG as follows: Interpretation: Normal sinus rhythm with a rate of 69, no obvious ST segment elevation or depression changes. First-degree AV block. Right bundle branch block. NC 328 prolonged, QRS 124, QTC 469. MDM Narrative Medical decision making narrative: 88-year-old male with reported tactile fever, no measured fever, had episode of passing out at home residence, no CPR, no loss of pulse, afebrile here without recent exposure to antipyretics. recently diagnosed with COVID in the same household by home testing yesterday. Nonfocal neuro exam, generalized weakness persisting. Afebrile, sirs screen negative. Normal oxygenation, no respiratory distress, no obvious head injuries or sequelae of any falls. Patient would like some workup, including COVID testing. CT head noncontrast, EKG, labs sent, chest x-ray, respiratory panel, troponin, lactate tests are pending at this time. Also add urinalysis. EKG without obvious ischemic changes. Initial troponin negative, will repeat interval troponin. CT head noncontrast study no acute changes. Respiratory panel positive for COVID, negative for other pathogens tested. Patient made aware of COVID positive test, he is interested in trying Paxlovid, prescription course was sent to his pharmacy, no known renal disease. Chest x-ray possible early pneumonia versus atelectasis or other artifact. P.o. azithromycin 1st dose now, further prescription sent to his pharmacy. Walker trial, he uses a walker sometimes at home, tolerated well. He is able to take oral fluids. Discharged home, to be driven home by his neighbor, where he resides with his . Patient believes he can get assistance filling his prescription medications in the morning. Discharged home driven home by neighbor who is wearing a mask, take oral Paxlovid regimen as planned, use walker as needed home. Follow up with PCP if not improved in the next couple of days. Return precautions discussed Critical Care Time Critical Care Time Critical Care Time: Yes Total Critical Care Time: 31 Attestation: The high probability of a clinically significant, sudden or life threatening deterioration of the [31] system(s) required my full and direct attention, intervention and personal management. The aggregate critical care time was [] minutes. This time is in addition to time spent performing reported procedures but includes the following: [x] Data Review and interpretation [x] Patient assessment and monitoring of vital signs [x] Documentation [x] Medication orders and management Discharge Plan Departure Patient Disposition: Home Clinical Impression: COVID-19, Syncope, Pneumonia Activity Restrictions/Additional Instructions: Generalized weakness, recent subjective fever, no fever measured while here in the emergency department, with recent diagnosis of COVID. Your COVID was also positive tonight, negative for other pathogens. Other workup studies were unremarkable. You were interested in taking Paxlovid antiviral anti COVID medication, this prescription is not available here in the emergency department of the hospital, but is available at local pharmacies, prescription was sent to your local pharmacy for pickup, most effective if he taken his soon as possible, please fill this prescription tomorrow morning and start taking her 1st dose, usually doses are twice daily for 5 day course, best taken within 5 days, the earliest possible date. Chest x-ray tonight showed possible streakiness by Radiology report, could be early developing pneumonia, versus artifact, we will use oral dose of antibiotic azithromycin, 1st dose in the emergency department, further doses once daily for three days, sent prescription to your pharmacy. Consider recheck if symptoms with your regular doctor in the next couple of days if not improving. Return to this/nearest emergency department for any change worsening symptoms or any concerns prior Prescriptions: New Paxlovid 300 mg (150 mg x 2)-100 mg tablets,dose pack See Rx Instructions .ROUTE .COMPLEX Qty: 30 0RF Rx Instructions: take TWO 150 mg tablets of nirmatrelvir with ONE 100 mg tablet of ritonavir twice daily for 5 days azithromycin 500 mg tablet 500 mg PO DAILY 3 Days Qty: 3 0RF No Action finasteride 5 mg tablet 5 mg PO DAILY Qty: 90 3RF citalopram 40 mg tablet 40 mg PO DAILY Qty: 90 3RF Rx Instructions: Please schedule follow up pantoprazole 40 mg tablet,delayed release (DR/EC) 40 mg PO BID Qty: 180 1RF atenolol 50 mg tablet 100 mg PO DAILY Qty: 180 1RF Rx Instructions: Please call for an appointment prior to more fills 01/14/24 multivitamin [Multiple Vitamins] Tablet 1 tab PO DAILY ferrous sulfate 325 mg (65 mg iron) Tablet 325 mg PO DAILY Qty: 30 0RF Referrals: Samson Perez MD [Primary Care Provider] - Stand Alone Forms: Patient Portal/API
[2024-06-01 22:22] LABS: Adenovirus Not Detected (Not Detect); B. parapertussis Not Detected (Not Detecte); Bordetella pertussis Not Detected (Not Detect); Chlamydophila pneumoniae Not Detected (Not Detect); Coronavirus 229E Not Detected (Not Detect); Coronavirus HKU1 Not Detected (Not Detect); Coronavirus NL 63 Not Detected (Not Detect); Coronavirus OC43 Not Detected (Not Detect); Human Metapneumovirus Not Detected (Not Detect); Human Rhinovirus/Enterovirus Not Detected (Not Detect); Influenza A Not Detected (Not Detect); Influenza B Not Detected (Not Detect); Mycoplasma pneumoniae Not Detected (Not Detect); Parainfluenza Virus 1 Not Detected (Not Detect); Parainfluenza Virus 2 Not Detected (Not Detect); Parainfluenza Virus 3 Not Detected (Not Detect); Parainfluenza Virus 4 Not Detected (Not Detect); Respiratory Syncytial Virus Not Detected (Not Detect)
[2024-06-01 22:23] LABS: SARS- CoV-2 Detected (Not Detecte)
[2024-06-01 23:39] LABS: Troponin I < 0.012 ng/mL (0.01-0.034)
--- NOTE | 2024-06-01 23:39 | PC.NURSE ---
Pt laying calmly in bed. Pt does appear to get agitated when having procedures or blood drawn. Pt is redirectable at this time. Pts at bedside.
--- NOTE | 2024-06-01 23:59 | PC.NURSE ---
Pts contacted to call their neighbor to come and take the pt home for discharge. Pts updated and is agreeable to discharge. Pt upated and is also agreeable to discharge.
[2024-06-02] VITALS: PULSE 64; RESP 18; O2SAT 98
[2024-06-02 00:01] VITALS: BP 142/62; PULSE 63; RESP 18; O2SAT 97
[2024-06-02] MEDS: AZITHROMYCIN 250 MG TABLET 500 MG PO (00:07)
[2024-06-02 00:15] VITALS: BP 134/63; PULSE 63; RESP 18; O2SAT 95
[2024-06-02 00:30] VITALS: BP 145/63; PULSE 66; RESP 26; O2SAT 95
== END 2024-06-02 00:38 | disposition home or self-care (01) ==
PROVIDERS: Emergency Provider Emergency Medicine; PCP Family Medicine
DX: U07.1 COVID-19 (principal); J18.9 Pneumonia, unspecified organism; R55 Syncope and collapse; R07.9 Chest pain, unspecified; I44.0 Atrioventricular block, first degree; I45.10 Unspecified right bundle-branch block
CPT/HCPCS: 36415; 70450; 71045; 80053; 82550; 83690; 83735; 83880; 84484; 85025; 85610; 85730; 87633; 93005; 93010; 96360; 96361; 99285

== ENCOUNTER 2024-06-12 17:57 | Emergency (ER) | payer MEDICARE, SELFPAY ==
[2024-04-11 09:02] VITALS: BMI 23.1
[2024-06-12] VITALS (8 sets, daily range): BP systolic 117–188; BP diastolic 61–97; PULSE 66–74; RESP 12–24; TEMP 36.8; O2SAT 94–96; BMI 22.4
--- NOTE | 2024-06-12 18:32 | DI.RAD.S_ITS ---
PROCEDURE: XR CHEST 1V INDICATIONS: Eval for pneumonia TECHNIQUE: One view of the chest was acquired. COMPARISON: [facility], CR, XR CHEST 1V, 06/01/2024, 21:29. [facility], CR, XR CHEST 1V, 02/16/2022, 10:39. FINDINGS: Surgical changes and devices: None. Lungs and pleura: Patchy right lower lung zone opacity appears unchanged when compared to the exam from 06/01/2024. No pleural effusion or pneumothorax. Mediastinum: Mediastinal contours appear normal. Heart size is normal. Bones and chest wall: No suspicious bony lesions. Overlying soft tissues appear unremarkable. IMPRESSION: Mild patchy right lateral airspace opacities may be secondary to pneumonia versus chronic interstitial changes. Approved by: Chung Ferguson M.D. on 06/12/2024 at 19:30
[2024-06-12 18:45] LABS: Add Manual Diff / Slide Review NO; Basophils Absolute Auto 0 /uL (0-100); Basophils Percent Auto 0.4 % (0-2); Eosinophils Absolute Auto 200 /uL (0-450); Eosinophils Percent Auto 3.5 % (2-4); Hematocrit 34.7 % (41-53); Hemoglobin 11.8 g/dL (13.5-17.5); Lymphocytes Absolute Auto 1500 /uL (1100-4500); Lymphocytes Percent Auto 29.4 % (25-40); Mean Corpuscular HGB Conc 33.9 % (30-36); Mean Corpuscular Hemoglobin 27.3 PG (26-34); Mean Corpuscular Volume 80.6 fL (80-100); Monocytes Absolute Auto 1100 /uL (0-900); Monocytes Percent Auto 22.1 % (3-14); Neutrophils Absolute Auto 2200 /uL (1500-7000); Neutrophils Percent Auto 44.6 % (50-75); Platelet Count 145 X10^3/uL (150-400); Red Blood Cell Count 4.31 X10^6/uL (4.5-5.9); Red Cell Distribution Width 17.1 % (11.6-14.8)
[2024-06-12 18:51] LABS: Alanine Aminotransferase 31 IU/L (<50); Albumin 4.3 g/dL (3.5-5.0); Albumin Globulin Ratio 1.3 (1.0-2.8); Alkaline Phosphatase 104 U/L (38-126); Aspartate Aminotransferase 35 IU/L (17-59); BUN Creatinine Ratio 19.8 (6-22); Bilirubin Total 0.4 mg/dL (0.2-1.3); Blood Urea Nitrogen 20 mg/dL (9-20); Carbon Dioxide 24 mmol/L (22-32); Chloride 102 mmol/L (98-107); Creatine Kinase 26 U/L (55-170); Estimated Glomerular Filt Rate > 60 mL/min (>60); Globulin 3.3 g/dL (1.7-4.1); Glucose 93 mg/dL (80-110); HEMOLYSIS 15 (0-50); Lipase 119 U/L (23-300); Potassium 4.4 mmol/L (3.4-5.1); Sodium 138 mmol/L (137-145); Total Protein 7.6 g/dL (6.3-8.2)
[2024-06-12 19:02] LABS: Troponin I < 0.012 ng/mL (0.01-0.034)
--- NOTE | 2024-06-12 19:09 | EKG_ITS ---
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
[2024-06-12 19:48] LABS: Adenovirus Not Detected (Not Detect); B. parapertussis Not Detected (Not Detecte); Bordetella pertussis Not Detected (Not Detect); Chlamydophila pneumoniae Not Detected (Not Detect); Coronavirus 229E Not Detected (Not Detect); Coronavirus HKU1 Not Detected (Not Detect); Coronavirus NL 63 Not Detected (Not Detect); Coronavirus OC43 Not Detected (Not Detect); Human Metapneumovirus Not Detected (Not Detect); Human Rhinovirus/Enterovirus Not Detected (Not Detect); Influenza A Not Detected (Not Detect); Influenza B Not Detected (Not Detect); Mycoplasma pneumoniae Not Detected (Not Detect); Parainfluenza Virus 1 Not Detected (Not Detect); Parainfluenza Virus 2 Not Detected (Not Detect); Parainfluenza Virus 3 Not Detected (Not Detect); Parainfluenza Virus 4 Not Detected (Not Detect); Respiratory Syncytial Virus Not Detected (Not Detect)
[2024-06-12 19:49] LABS: SARS- CoV-2 Detected (Not Detecte)
--- NOTE | 2024-06-12 19:59 | ED.GENADULT ---
HPI - General Adult General Chief complaint: Weakness Stated complaint: Weakness,+COVID Time Seen by Provider: 06/12/24 18:31 Source: patient and EMS Mode of arrival: EMS History of Present Illness HPI narrative: Patient is an 80-year-old male without underlying lung pathology. Was seen here in the emergency department several weeks ago and diagnosed with COVID. Also diagnosed with pneumonia. Was placed on azithromycin. Has completed the course of azithromycin. States that he was still feeling very weak and tired. Today he had quite a bit of a cough that is causing him to have problems sleeping. No chest pain. Does have low energy. Has been taking Tylenol and ibuprofen. No vomiting. Related Data Home Medications Medication Instructions Recorded Confirmed multivitamin (Multiple Vitamins 1 tab PO DAILY 04/17/24 04/17/24 tablet) Previous Rx's Medication Instructions Recorded ferrous sulfate 325 mg (65 mg 325 mg PO DAILY #30 tabs 09/10/22 iron) tablet finasteride 5 mg tablet 5 mg PO DAILY #90 tabs 03/28/23 citalopram 40 mg tablet 40 mg PO DAILY #90 tabs 10/04/23 pantoprazole 40 mg tablet,delayed 40 mg PO BID #180 tabs 12/13/23 release atenolol 50 mg tablet 100 mg (2 x 50 mg) PO DAILY #180 01/14/24 tabs nirmatrelvir 300 mg (150 mg See Rx Instructions PO .COMPLEX 06/01/24 x2)-ritonavir 100 mg tablet,dose #30 ea pack (Paxlovid) benzonatate 100 mg capsule 100 mg PO BID-TID PRN cough #14 06/12/24 caps Allergies Allergy/AdvReac Type Severity Reaction Status Date / Time carbamazepine [CARBAMAZEPINE] Allergy Mild HIVES Verified 04/17/24 13:32 adhesive tape AdvReac Intermediate Blister Verified 04/17/24 13:32 codeine [CODEINE] AdvReac Mild CONSTIPATIO Verified 04/17/24 13:32 N tamsulosin [TAMSULOSIN] AdvReac Mild REAL BAD Verified 04/17/24 13:32 COUGH morphine [MORPHINE] AdvReac Unknown severe Verified 04/17/24 13:32 nausea/vomiting Review of Systems Review of Systems ROS Unobtainable: All systems reviewed & are unremarkable except as noted in HPI and below Patient History Medical History Poor appetite Acute metabolic encephalopathy Zoster Shingles outbreak BPH w urinary obs/LUTS Somatic dysfunction of lower extremity Sacral region somatic dysfunction Pelvic somatic dysfunction Piriformis syndrome of left side Iliotibial band syndrome, left leg Greater trochanteric bursitis of left hip Gait instability 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 Herniated nucleus pulposus, L5-S1, left Polymyalgia rheumatica Trigeminal neuralgia Cataract Myocardial infarction History of small bowel obstruction Hemorrhoids Small bowel obstruction 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) 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) Hypertension Hyperlipidemia Diverticular disease of colon Coronary artery disease Gout Bilateral renal cysts Surgical History H/O prostate biopsy H/O total cystectomy History of angioplasty (2001) History of gastrointestinal surgery Hx of inguinal hernia surgery Status post cholecystectomy Family History Father Macular degeneration Sister Hypertension Social History marital status: number of children: 0 household members: spouse Smoking Status: Never smoker alcohol intake: current substance use type: does not use caffeine: Yes Smoking Status: Never smoker alcohol intake frequency: a few times a week Substance Use Type: does not use Exam Initial Vital Signs Initial Vital Signs: Vital Signs Pulse Oximetry 96 06/12/24 18:00 Const General: cooperative, comfortable and No ill appearing HENMT Head: normal to inspection and normocephalic Resp Effort & Inspection: normal respiratory effort Auscultation: clear to auscultation bilaterally Cardio Rate: regular rate Rhythm: regular rhythm GI Inspection: normal to inspection and non-distended Palpation: soft Skin General: no rashes or lesions noted Neuro General: patient alert, patient awake and moves all extremities Extrem General: capillary refill normal Course Orders Ordered: ED Orders 06/12/24 18:10 Complete Blood Count AUTO DIFF Stat Comprehensive Metabolic Panel Stat Lipase Stat Troponin & CK Cardiac Panel Stat 06/12/24 18:32 XR chest 1V Stat EKG-12 Lead Stat 06/12/24 18:55 Respiratory Panel (Film Array) Stat Discontinued Medications Benzonatate (Benzonatate 100 Mg Capsule) 100 mg PO NOW ONE Stop: 06/12/24 20:00 Last Admin: 06/12/24 20:03 Dose: 100 mg Documented By: HO Vital Signs Vital signs: Vital Signs - 8 hr 06/12/24 18:00 06/12/24 18:03 06/12/24 18:03 Temperature Pulse Rate 71 Respiratory Rate 18 Blood Pressure 117/61 Pulse Oximetry 96 96 Oxygen Delivery Method 06/12/24 18:05 06/12/24 18:30 06/12/24 18:30 Temperature 98.3 F Pulse Rate 72 69 Respiratory Rate 24 21 Blood Pressure 117/61 118/62 Pulse Oximetry 96 94 Oxygen Delivery Method Room Air 06/12/24 19:00 06/12/24 19:00 06/12/24 19:30 Temperature Pulse Rate 68 66 Respiratory Rate 23 22 Blood Pressure 123/65 Pulse Oximetry 94 94 Oxygen Delivery Method 06/12/24 19:30 06/12/24 20:00 06/12/24 20:01 Temperature Pulse Rate 73 74 Respiratory Rate 22 12 Blood Pressure 137/63 Pulse Oximetry 96 96 Oxygen Delivery Method Room Air Room Air 06/12/24 20:01 Temperature Pulse Rate Respiratory Rate Blood Pressure 188/97 H Pulse Oximetry Oxygen Delivery Method Medical Decision Making Lab Data Lab results reviewed: Yes I reviewed the patient's lab results. 06/12/24 18:10 06/12/24 18:10 Labs: Lab Results 06/12/24 06/12/24 Range/Units 18:10 18:55 WBC 5.0 (4.5-11.0) X10^3/uL RBC 4.31 L (4.5-5.9) X10^6/uL Hgb 11.8 L (13.5-17.5) g/dL Hct 34.7 L (41-53) % MCV 80.6 (80-100) fL MCH 27.3 (26-34) PG MCHC 33.9 (30-36) % RDW 17.1 H (11.6-14.8) % Plt Count 145 L (150-400) X10^3/uL Neut % (Auto) 44.6 L (50-75) % Lymph % (Auto) 29.4 (25-40) % [place] % (Auto) 22.1 H (3-14) % Eos % (Auto) 3.5 (2-4) % Baso % (Auto) 0.4 (0-2) % Neut # (Auto) 2200 (8558-9620) /uL Lymph # (Auto) 1500 (3802-6833) /uL [place] # (Auto) 1100 H (0-900) /uL Eos # (Auto) 200 (0-450) /uL Baso # (Auto) 0 (0-100) /uL Sodium 138 (137-145) mmol/L Potassium 4.4 (3.4-5.1) mmol/L Chloride 102 (98-107) mmol/L Carbon Dioxide 24 (22-32) mmol/L BUN 20 (9-20) mg/dL Creatinine 1.01 (0.66-1.25) mg/dL Estimated GFR > 60 (>60) mL/min BUN/Creatinine Ratio 19.8 (6-22) Glucose 93 (80-110) mg/dL Calcium 9.0 (8.4-10.2) mg/dL Total Bilirubin 0.4 (0.2-1.3) mg/dL AST 35 (17-59) IU/L ALT 31 (<50) IU/L Alkaline Phosphatase 104 (38-126) U/L Total Creatine Kinase 26 L (55-170) U/L Troponin I < 0.012 (0.01-0.034) ng/mL Total Protein 7.6 (6.3-8.2) g/dL Albumin 4.3 (3.5-5.0) g/dL Globulin 3.3 (1.7-4.1) g/dL Albumin/Globulin Ratio 1.3 (1.0-2.8) Lipase 119 (23-300) U/L Chlamy pneumoniae PCR Not detected (Not Detect) Adenovirus (PCR) Not detected (Not Detect) B.parapertussis DNA PCR Not detected (Not Detecte) Coronavirus OC43 (PCR) Not detected (Not Detect) Coronavirus HKU1 (PCR) Not detected (Not Detect) Coronavirus 229E (PCR) Not detected (Not Detect) SARS-CoV-2 (PCR) Detected H (Not Detecte) Coronavirus NL63 (PCR) Not detected (Not Detect) Human Metapneumovir PCR Not detected (Not Detect) Influenza Type A (PCR) Not detected (Not Detect) Influenza Type B (PCR) Not detected (Not Detect) M. pneumoniae (PCR) Not detected (Not Detect) Parainfluenza 1 (PCR) Not detected (Not Detect) Parainfluenza 2 (PCR) Not detected (Not Detect) Parainfluenza 3 (PCR) Not detected (Not Detect) Parainfluenza 4 (PCR) Not detected (Not Detect) RSV (PCR) Not detected (Not Detect) Entero/Rhino (PCR) Not detected (Not Detect) Imaging Data Chest x-ray: Radiologist's Impression: PROCEDURE: XR CHEST 1V INDICATIONS: Eval for pneumonia TECHNIQUE: One view of the chest was acquired. COMPARISON: [facility], CR, XR CHEST 1V, 06/01/2024, 21:29. [facility], CR, XR CHEST 1V, 02/16/2022, 10:39. FINDINGS: Surgical changes and devices: None. Lungs and pleura: Patchy right lower lung zone opacity appears unchanged when compared to the exam from 06/01/2024. No pleural effusion or pneumothorax. Mediastinum: Mediastinal contours appear normal. Heart size is normal. Bones and chest wall: No suspicious bony lesions. Overlying soft tissues appear unremarkable. IMPRESSION: Mild patchy right lateral airspace opacities may be secondary to pneumonia versus chronic interstitial changes. ECG Data Attestation: I personally reviewed and interpreted this ECG as follows: Interpretation: Sinus rhythm First-degree AV block CT interval 332 milliseconds Ventricular rate is 67 Incomplete right bundle-branch block Left axis deviation Nonspecific ST T wave changes MDM Narrative Medical decision making narrative: Patient continues to be COVID positive. He was not hypoxic. Not tachypneic. Lungs are clear. Labs unremarkable. Chest x-ray unchanged/improved from prior. There was no indication for antibiotics. Will try Tessalon to try to help with his cough. I suspect that his symptoms are because of the continued COVID infection. Discussed this with him. No indication for admission to the hospital. Will discharge home with return precautions. Discharge Plan Departure Patient Disposition: Home Clinical Impression: COVID-19, Cough Instructions: DI for COVID-19 (Suspected or Confirmed ) Activity Restrictions/Additional Instructions: Your testing today shows that you were still positive for COVID. Recommend that you continue to take Tylenol and or ibuprofen for any fevers or body aches. Be sure that you were increasing your fluid intake. You can take the benzonatate/Tessalon as needed for the cough. Contact your primary doctor for follow-up. Return to the emergency department for new symptoms. Prescriptions: New benzonatate 100 mg capsule 100 mg PO BID-TID PRN (Reason: cough) Qty: 14 0RF No Action finasteride 5 mg tablet 5 mg PO DAILY Qty: 90 3RF citalopram 40 mg tablet 40 mg PO DAILY Qty: 90 3RF Rx Instructions: Please schedule follow up pantoprazole 40 mg tablet,delayed release (DR/EC) 40 mg PO BID Qty: 180 1RF atenolol 50 mg tablet 100 mg PO DAILY Qty: 180 1RF Rx Instructions: Please call for an appointment prior to more fills 01/14/24 multivitamin [Multiple Vitamins] Tablet 1 tab PO DAILY ferrous sulfate 325 mg (65 mg iron) Tablet 325 mg PO DAILY Qty: 30 0RF Paxlovid 300 mg (150 mg x 2)-100 mg tablets,dose pack See Rx Instructions .ROUTE .COMPLEX Qty: 30 0RF Rx Instructions: take TWO 150 mg tablets of nirmatrelvir with ONE 100 mg tablet of ritonavir twice daily for 5 days Referrals: Samson Perez MD [Primary Care Provider] - Stand Alone Forms: Patient Portal/API
[2024-06-12] MEDS: BENZONATATE 100 MG CAPSULE PO (20:03)
== END 2024-06-12 20:30 | disposition home or self-care (01) ==
PROVIDERS: Emergency Provider Emergency Medicine; PCP Family Medicine
DX: U07.1 COVID-19 (principal); R05.9 Cough, unspecified; I44.0 Atrioventricular block, first degree; I45.10 Unspecified right bundle-branch block; I25.2 Old myocardial infarction
CPT/HCPCS: 36415; 71045; 80053; 82550; 83690; 84484; 85025; 87633; 93005; 99284